=== PATIENT | female | born 1935 | race Caucasian/White ===

== ENCOUNTER 2016-11-08 09:54 | Inpatient (IN) | payer MEDICARE, BC ==
[2016-11-08] MEDS ORDERED: Albuterol 0.083% 2.5 MG/3 ML Neb Soln ONE (10:29)
--- NOTE | 2016-11-08 10:58 | EDM.PDOC ---
ED HPI GENERAL MEDICAL PROBLEM - General Chief Complaint: Respiratory Problem Stated Complaint: RESPIRATORY ISSUES Time Seen by Provider: 11/08/16 10:15 Source of Information: Reports: Patient, Family History Limitations: Reports: No Limitations - History of Present Illness INITIAL COMMENTS - FREE TEXT/NARRATIVE: 81 YO WF presents to ER complaining of right sided pleuritic pain and increased shortness of breath which began this am. Pt with history of COPD and is O2 dependent on 2L. Pt denies fever/chills, but states she is feeling nauseated. Pt denies any lower extremity swelling or recent weight gain. Onset: Today Onset Date: 11/08/16 Onset Time: 07:00 Location: Reports: Chest Quality: Reports: Stabbing Severity: Mild Improves with: Reports: None Worsens with: Reports: None Associated Symptoms: Reports: Chest Pain, Cough, Loss of Appetite, Malaise, Nausea/Vomiting, Shortness of Breath, Weakness. Denies: Confusion, Fever/Chills , Rash, Syncope Left Lower Back Pain Score (Numeric/FACES): 2 - Related Data Allergies Allergy/AdvReac Type Severity Reaction Status Date / Time penicillamine Allergy Severe Anaphylactic Verified 11/08/16 10:45 Shock Penicillins Allergy Severe Anaphylactic Verified 11/08/16 10:45 Shock Cephalosporins Allergy Unknown Cannot Verified 11/08/16 10:45 Remember aspirin Allergy Other Verified 11/08/16 10:45 Carbapenems Allergy Cannot Verified 11/08/16 10:45 Remember divalproex sodium Allergy Delusions Verified 11/08/16 10:45 [From Depakote] contrast Allergy Chest Pain Uncoded 07/17/16 13:19 Home Meds: Home Meds Cholecalciferol (Vitamin D3) [Vitamin D3] 1,000 unit PO DAILY@12 09/27/13 [ History] Levothyroxine [Synthroid] 88 mcg PO BEDTIME 09/27/13 [History] Lutein/Minerals/Vit A,C & E [I-Silvina] 1 cap PO WITHDINNER 06/24/14 [History] Pravastatin [Pravachol] 40 mg PO BEDTIME 06/24/14 [History] Polyethylene Glycol 3350 [MiraLAX] 17 gm PO Q2D PRN 08/24/14 [History] Albuterol Sulfate [Albuterol Sulfate HFA] 2 puff INH Q4HR PRN 08/28/14 [History] Omeprazole [Prilosec] 40 mg PO WITHLUNCH 01/20/15 [History] glipiZIDE [Glipizide Xl] 2.5 mg PO BRK 01/20/15 [History] Ferrous Sulfate 325 mg PO DAILY@1800 04/12/15 [History] Venlafaxine [Effexor XR] 150 mg PO DAILY 04/12/15 [History] Docusate Sodium [Colace] 100 mg PO BID 06/27/15 [History] Albuterol [Proventil Neb Soln] 1 puff NEB QID 02/25/16 [History] Potassium Chloride [K-Tab ER] 10 meq PO DAILY 02/25/16 [History] Warfarin [Coumadin] 2.5 mg PO MOFR@18 02/25/16 [History] Warfarin [Coumadin] 5 mg PO SUTUWETHSA@18 05/11/16 [History] Bumetanide [Bumex] 0.5 mg PO BID 06/19/16 [History] Dapsone 100 mg PO DAILY 06/19/16 [History] Lisinopril [Prinivil] 5 mg PO DAILY 06/19/16 [History] Sotalol [Betapace] 80 mg PO BID 06/19/16 [History] Acetaminophen/HYDROcodone [[place] 325-5 MG] 1 tab PO Q6H PRN 07/15/16 [History] predniSONE [Prednisone] 5 mg PO DAILY@199907/17/16 [History] predniSONE [Prednisone] 10 mg PO WITHBREAKFAST 07/17/16 [History] Calcium Phosphate Trib/Vit D3 [Citracal + D3 Gummies] 2 tab PO QAM 11/08/16 [ History] Diclofenac Sodium [Voltaren 1% Gel] 1 applic TOP BID PRN 11/08/16 [History] Metoprolol Tartrate 25 mg PO BID 11/08/16 [History] Ondansetron [Zofran ODT] 4 mg PO Q4H PRN 11/08/16 [History] Past Medical History HEENT History: Reports: Hard of Hearing, Impaired Vision Cardiovascular History: Reports: Afib, Heart Failure, Heart Valve Replacement, High Cholesterol, Hypertension, [place], SOB on Exertion, Other (See Below) Other Cardiovascular History: mitral stenosis,aortic stenosis,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,vasculitis Respiratory History: Reports: COPD, SOB Other Respiratory History: pleural effusions Gastrointestinal History: Reports: Bowel Obstruction, Diverticulosis, GERD Genitourinary History: Reports: Chronic Renal Insuffiency, Renal Disease, Other (See Below) Other Genitourinary History: acquired cyst of kidney 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 Other OB/BYN History: 6 daughters, live term births Musculoskeletal History: Reports: Arthritis, Back Pain, Chronic, Osteoporosis, Other (See Below) Other Musculoskeletal History: compression fracture of thoracolumbar vertebra Neurological History: Reports: Migraines, Other (See Below) Other Neuro History: new onset confusion starting 06/18/2016 Psychiatric History: Reports: Depression Endocrine/Metabolic History: Reports: Diabetes, Type II, Hypothyroidism, Osteoporosis Hematologic History: Reports: Anemia, Blood Transfusion(s) Immunologic History: Reports: Other (See Below) Other Immunologic History: chronic steroid use Oncologic (Cancer) History: Reports: Breast, Colon Dermatologic History: Reports: Venous Stasis Dermatitis - Infectious Disease History Infectious Disease History: Reports: Chicken Pox, Measles, Rheumatic Fever - Past Surgical History HEENT Surgical History: Reports: Cataract Surgery Cardiovascular Surgical History: Reports: Valve Replacement Neurological Surgical History: Reports: Other (See Below) Musculoskeletal Surgical History: Reports: Other (See Below) Oncologic Surgical History: Reports: Mastectomy, Other (See Below) Social & Family History - Family History Family Medical History: Noncontributory HEENT: Reports: None Cardiac: Reports: None Respiratory: Reports: None GI: Reports: None : Reports: None OBGYN: Reports: None Musculoskeletal: Reports: None Neurological: Reports: None Psychiatric: Reports: None Endocrine/Metabolic: Reports: None Hematologic: Reports: None Immunologic: Reports: None Dermatologic: Reports: None Oncologic: Reports: Other (See Below) Other Oncologic Family History: parents had ca - Tobacco Use Smoking Status *Q: Former Smoker Years of Tobacco use: 40 Packs/Tins Daily: 0.5 Used Tobacco, but Quit: Yes Month Tobacco Last Used: October Second Hand Smoke Exposure: No - Caffeine Use Caffeine Use: Reports: Coffee, Soda - Alcohol Use Days Per Week of Alcohol Use: 0 - Recreational Drug Use Recreational Drug Use: No Recreational Drug Last Use: Coffee 3 cups of coffee per day, very occasional soda - Living Situation & Occupation Living situation: Reports: Occupation: Retired ED ROS GENERAL - Review of Systems Review Of Systems: See Below Constitutional: Reports: No Symptoms HEENT: Reports: No Symptoms Respiratory: Reports: Shortness of Breath, Wheezing, Cough Cardiovascular: Reports: Chest Pain Endocrine: Reports: No Symptoms GI/Abdominal: Reports: No Symptoms : Reports: No Symptoms Musculoskeletal: Reports: No Symptoms Skin: Reports: No Symptoms Neurological: Reports: No Symptoms Psychiatric: Reports: No Symptoms Hematologic/Lymphatic: Reports: No Symptoms Immunologic: Reports: No Symptoms ED EXAM, GENERAL - Physical Exam Exam: See Below Exam Limited By: No Limitations General Appearance: Alert, WD/WN, No Apparent Distress Nose: Normal Inspection, Normal Mucosa, No Blood Throat/Mouth: Normal Inspection, Normal Lips, Normal Teeth, Normal Gums, Normal Oropharynx, Normal Voice, No Airway Compromise Head: Atraumatic Neck: Normal Inspection, Supple, Non-Tender, Full Range of Motion Respiratory/Chest: No Respiratory Distress, No Accessory Muscle Use, Chest Non- Tender, Decreased Breath Sounds (on right side), Crackles, Wheezing. No: Respiratory Distress Cardiovascular: Normal Peripheral Pulses, Regular Rate, Rhythm, No Edema, No Gallop, No JVD, No Murmur, No Rub GI/Abdominal: Normal Bowel Sounds, Soft, Non-Tender, No Organomegaly, No Distention, No Abnormal Bruit, No Mass Back Exam: Normal Inspection, Full Range of Motion, NT Extremities: Normal Inspection, Normal Range of Motion, Non-Tender, Normal Capillary Refill, No Pedal Edema Neurological: Alert, Oriented, CN II-XII Intact, Normal Cognition, Normal Gait, Normal Reflexes, No Motor/Sensory Deficits Psychiatric: Normal Affect, Normal Mood Skin Exam: Warm, Dry, Intact, Normal Color, No Rash Lymphatic: No Adenopathy EKG INTERPRETATION EKG Date: 11/08/16 Time: 10:45 Rhythm: NSR Rate (beats/min): 69 [place]: LAD-left axis deviation P-wave: present QRS: normal ST-T: normal QT: normal Comparison: NA - no prior EKG Course - Vital Signs Last Recorded V/S: Last Vital Signs Temp 36.7 C 11/08/16 10:47 Pulse 62 11/08/16 11:24 Resp 22 H 11/08/16 11:24 BP 111/34 L 11/08/16 11:24 Pulse Ox 87 L 11/08/16 11:24 - Orders/Labs/Meds Orders: Active Orders 24 hr Category Date Time Status EKG Documentation Completion [RC] ASDIRECTED Care 11/08/16 10:36 Active Chest 2V [CR] Stat Exams 11/08/16 10:31 Ordered EKG 12 Lead [EK] Routine Ther 11/08/16 10:36 Ordered Medication Orders Albuterol/Ipratropium (Duoneb 3.0-0.5 Mg/3 Ml) 3 ml NEB Q4H PRN PRN Reason: Shortness Of Breath/wheezing Ondansetron HCl (Zofran) 4 mg IV Q4H PRN PRN Reason: Nausea/Vomiting Sodium Chloride (Syrex Flush) 5 ml FLUSH Q8HR PRN PRN Reason: Keep Vein Open Labs: Laboratory Tests 11/08/16 11/08/16 11/08/16 Range/Units 10:50 10:50 10:50 WBC 13.6 H (5.0-10.0) 10^3/uL RBC 3.67 L (3.80-5.50) 10^6/uL Hgb 12.8 (12.0-16.0) g/dL Hct 38.3 (37.0-47.0) % MCV 104.3 H (82.0-92.0) fL MCH 34.8 H (27.0-31.0) pg MCHC 33.4 (32.0-36.0) g/dL RDW 13.6 (11.5-14.5) % Plt Count 117 L (150-300) 10^3/uL MPV 10.3 (7.4-10.4) fL Neut % (Auto) 91.2 H (50.0-70.0) % Lymph % (Auto) 7.5 L (20.0-40.0) % [place] % (Auto) 1.0 L (2.0-8.0) % Eos % (Auto) 0.1 L (1.0-3.0) % Baso % (Auto) 0.2 (0.0-1.0) % Neut # (Auto) 12.5 H (2.5-7.0) 10^3/uL Lymph # (Auto) 1.0 (1.0-4.0) 10^3/uL [place] # (Auto) 0.1 (0.1-0.8) 10^3/uL Eos # (Auto) 0.0 L (0.1-0.3) 10^3/uL Baso # (Auto) 0.0 (0.0-0.1) 10^3/uL PT 26.5 H (8.9-11.4) SEC INR 2.5 H (0.9-1.1) Sodium 144 (136-145) mmol/L Potassium 3.7 (3.3-5.3) mmol/L Chloride 107 (98-115) mmol/L Carbon Dioxide 31.1 (21.0-32.0) mmol/L BUN 28 H (6-25) mg/dL Creatinine 0.98 (0.51-1.17) mg/dL Est Cr Clr Drug Dosing 33.43 mL/min Estimated GFR (MDRD) 55 mL/min Glucose 127 H (70-110) mg/dL Calcium 9.5 (8.7-10.3) mg/dL Total Bilirubin 0.7 (0.2-1.0) mg/dL AST 17 (15-37) U/L ALT 25 (12-78) U/L Alkaline Phosphatase 52 (46-116) IU/L Creatine Kinase 40 (26-276) U/L CK-MB (CK-2) 1.60 (0.00-4.30) ng/mL Troponin I 0.06 (0.00-0.070) ng/mL B-Natriuretic Peptide 381 H (0-100) pg/mL Total Protein 5.9 L (6.4-8.2) g/dL Albumin 3.40 (3.00-4.80) g/dL Meds: Medications Generic Name Dose Route Start Last Admin Trade Name Freq PRN Reason Stop Dose Admin Albuterol/Ipratropium 3 ml 11/08/16 11:32 Duoneb 3.0-0.5 Mg/3 Ml NEB Q4H PRN Shortness Of Breath/wheezing Ondansetron HCl 4 mg 11/08/16 11:32 Zofran IV Q4H PRN Nausea/Vomiting Sodium Chloride 5 ml 11/08/16 11:32 Syrex Flush FLUSH Q8HR PRN Keep Vein Open Discontinued Medications Generic Name Dose Route Start Last Admin Trade Name Freq PRN Reason Stop Dose Admin Albuterol Confirm 11/08/16 10:29 Proventil Neb Soln Administered 11/08/16 10:30 Dose 2.5 mg .ROUTE .[facility] - Radiology Interpretation Free Text/Narrative:: CXR- RLL pneumonia Departure - Departure Time of Disposition: 11:40 Disposition: Admitted As Inpatient 68 Condition: fair Clinical Impression: Pneumonia Qualifiers: Pneumonia type: due to unspecified organism Laterality: right Lung location: lower lobe of lung Qualified Code(s): J18.1 - Lobar pneumonia, unspecified organism - Discharge Information - My Orders Last 24 Hours: My Active Orders 11/08/16 10:31 Chest 2V [CR] Stat 11/08/16 10:36 EKG Documentation Completion [RC] ASDIRECTED EKG 12 Lead [EK] Routine - Assessment/Plan Last 24 Hours: My Active Orders 11/08/16 10:31 Chest 2V [CR] Stat 11/08/16 10:36 EKG Documentation Completion [RC] ASDIRECTED EKG 12 Lead [EK] Routine Assessment:: 1. right lower lobe pneumonia Plan: 1. admit to Dr Arabella Hinojosa service for management of pneumoniq 2. vancomycin/levaquin for antibiotic coverage 3. supportive care 4. duoneb treatments Q4 and PRN
[2016-11-08] MEDS ORDERED: Ondansetron 4 MG/2 ML SDV IV PRN (11:32)
--- NOTE | 2016-11-08 12:23 | PCM.HP ---
H&P History of Present Illness - General Date of Service: 11/08/16 Admit Problem/Dx: Admission Diagnosis/Problem Admission Diagnosis/Problem Pneumonia History of present illness: Patient is a 81-year-old white female with a very complex medical history, presently resides as a resident of a local jail, presents today with the chief complaint of right posterior lower chest/back pleuritic chest pain and increased shortness of breath. Symptoms just started today-hurts to take a deep breath, denies any fever or chills. No increase coughing-history of COPD- somewhat of a chronic cough history. Patient reports she is somewhat nauseated and gagged a couple times but no significant productive vomiting. Denied any abdominal pain, constipation, diarrhea. Denied any urinary symptoms. Increased generalized weakness. Patient reports her chronic back pain and spasms are much better after she saw a chronic pain specialist in [place] and had special injections done. Patient evaluated in the emergency room-noted to have leukocytosis and right lower lobe pneumonia Source of Information: Patient, Family, Other (Emergency room provider) History Limitations: Reports: No Limitations - History of Present Illness Initial Comments - Free Text/Narative: See above Onset of Symptoms: Reports: Today, Sudden Quality: Reports: Sharp, Stabbing Severity: Moderate Worsens with: Reports: Breathing Associated Symptoms: Reports: Chest Pain, Malaise, Nausea/Vomiting, Shortness of Breath, Weakness. Denies: Cough, Fever/Chills, Headaches, Loss of Appetite Left Lower Back Pain Score (Numeric/FACES): 2 - Related Data Allergies/Adverse Reactions: Allergies Allergy/AdvReac Type Severity Reaction Status Date / Time penicillamine Allergy Severe Anaphylactic Verified 11/08/16 10:45 Shock Penicillins Allergy Severe Anaphylactic Verified 11/08/16 10:45 Shock Cephalosporins Allergy Unknown Cannot Verified 11/08/16 10:45 Remember aspirin Allergy Other Verified 11/08/16 10:45 Carbapenems Allergy Cannot Verified 11/08/16 10:45 Remember divalproex sodium Allergy Delusions Verified 11/08/16 10:45 [From Depakote] contrast Allergy Chest Pain Uncoded 07/17/16 13:19 Home Medications: Home Meds Cholecalciferol (Vitamin D3) [Vitamin D3] 1,000 unit PO DAILY@12 09/27/13 [ History] Levothyroxine [Synthroid] 88 mcg PO BEDTIME 09/27/13 [History] Lutein/Minerals/Vit A,C & E [I-Silvina] 1 cap PO WITHDINNER 06/24/14 [History] Pravastatin [Pravachol] 40 mg PO BEDTIME 06/24/14 [History] Polyethylene Glycol 3350 [MiraLAX] 17 gm PO Q2D PRN 08/24/14 [History] Albuterol Sulfate [Albuterol Sulfate HFA] 2 puff INH Q4HR PRN 08/28/14 [History] Omeprazole [Prilosec] 40 mg PO WITHLUNCH 01/20/15 [History] glipiZIDE [Glipizide Xl] 2.5 mg PO BRK 01/20/15 [History] Ferrous Sulfate 325 mg PO DAILY@1800 04/12/15 [History] Venlafaxine [Effexor XR] 150 mg PO DAILY 04/12/15 [History] Docusate Sodium [Colace] 100 mg PO BID 06/27/15 [History] Albuterol [Proventil Neb Soln] 1 puff NEB QID 02/25/16 [History] Potassium Chloride [K-Tab ER] 10 meq PO DAILY 02/25/16 [History] Warfarin [Coumadin] 2.5 mg PO MOFR@18 02/25/16 [History] Warfarin [Coumadin] 5 mg PO SUTUWETHSA@18 05/11/16 [History] Bumetanide [Bumex] 0.5 mg PO BID 06/19/16 [History] Dapsone 100 mg PO DAILY 06/19/16 [History] Lisinopril [Prinivil] 5 mg PO DAILY 06/19/16 [History] Sotalol [Betapace] 80 mg PO BID 06/19/16 [History] Acetaminophen/HYDROcodone [Pilger 325-5 MG] 1 tab PO Q6H PRN 07/15/16 [History] predniSONE [Prednisone] 5 mg PO DAILY@199907/17/16 [History] predniSONE [Prednisone] 10 mg PO WITHBREAKFAST 07/17/16 [History] Calcium Phosphate Trib/Vit D3 [Citracal + D3 Gummies] 2 tab PO QAM 11/08/16 [ History] Diclofenac Sodium [Voltaren 1% Gel] 1 applic TOP BID PRN 11/08/16 [History] Metoprolol Tartrate 25 mg PO BID 11/08/16 [History] Ondansetron [Zofran ODT] 4 mg PO Q4H PRN 11/08/16 [History] Past Medical History HEENT History: Reports: Hard of Hearing, Impaired Vision Cardiovascular History: Reports: Afib, Heart Failure, Heart Valve Replacement, High Cholesterol, Hypertension, [place], SOB on Exertion, Other (See Below) Other Cardiovascular History: mitral stenosis,aortic stenosis,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,vasculitis Respiratory History: Reports: COPD, SOB Other Respiratory History: pleural effusions Gastrointestinal History: Reports: Bowel Obstruction, Diverticulosis, GERD Genitourinary History: Reports: Chronic Renal Insuffiency, Renal Disease, Other (See Below) Other Genitourinary History: acquired cyst of kidney 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 Other OB/BYN History: 6 daughters, live term births Musculoskeletal History: Reports: Arthritis, Back Pain, Chronic, Osteoporosis, Other (See Below) Other Musculoskeletal History: compression fracture of thoracolumbar vertebra Neurological History: Reports: Migraines, Other (See Below) Other Neuro History: new onset confusion starting 06/18/2016 Psychiatric History: Reports: Depression Endocrine/Metabolic History: Reports: Diabetes, Type II, Hypothyroidism, Osteoporosis Hematologic History: Reports: Anemia, Blood Transfusion(s) Immunologic History: Reports: Other (See Below) Other Immunologic History: chronic steroid use Oncologic (Cancer) History: Reports: Breast, Colon Dermatologic History: Reports: Venous Stasis Dermatitis - Infectious Disease History Infectious Disease History: Reports: Chicken Pox, Measles, Rheumatic Fever - Past Surgical History HEENT Surgical History: Reports: Cataract Surgery Cardiovascular Surgical History: Reports: Valve Replacement Neurological Surgical History: Reports: Other (See Below) Musculoskeletal Surgical History: Reports: Other (See Below) Oncologic Surgical History: Reports: Mastectomy, Other (See Below) Social & Family History - Family History Family Medical History: Noncontributory HEENT: Reports: None Cardiac: Reports: None Respiratory: Reports: None GI: Reports: None : Reports: None OBGYN: Reports: None Musculoskeletal: Reports: None Neurological: Reports: None Psychiatric: Reports: None Endocrine/Metabolic: Reports: None Hematologic: Reports: None Immunologic: Reports: None Dermatologic: Reports: None Oncologic: Reports: Other (See Below) Other Oncologic Family History: parents had ca - Tobacco Use Smoking Status *Q: Former Smoker Years of Tobacco use: 40 Packs/Tins Daily: 0.5 Used Tobacco, but Quit: Yes Month Tobacco Last Used: October Second Hand Smoke Exposure: No - Caffeine Use Caffeine Use: Reports: Coffee, Soda - Alcohol Use Days Per Week of Alcohol Use: 0 - Recreational Drug Use Recreational Drug Use: No Recreational Drug Last Use: Coffee 3 cups of coffee per day, very occasional soda - Living Situation & Occupation Living situation: Reports: Occupation: Retired H&P Review of Systems - Review of Systems: Review Of Systems: See Below General: Reports: Malaise, Weakness, Fatigue. Denies: Fever, Chills, Diaphoresis, Decreased Appetite, Weight Loss, Weight Gain HEENT: Reports: No Symptoms Pulmonary: Reports: Shortness of Breath, Wheezing (Somewhat increased), Pleuritic Chest Pain, Cough (No significant increase) Cardiovascular: Reports: Chest Pain. Denies: Palpitations, Edema, Lightheadedness Gastrointestinal: Reports: No Symptoms Genitourinary: Reports: No Symptoms Musculoskeletal: Reports: Back Pain (Right posterior back/chest-lower) Skin: Reports: Other ( new skin tear today when getting into the vehicle to come to the emergency room) Psychiatric: Reports: No Symptoms Neurological: Reports: No Symptoms Exam - Exam Exam: See Below - Vital Signs Vital Signs: Last Vital Signs Temp 98.0 F 11/08/16 10:47 Pulse 62 11/08/16 11:24 Resp 22 H 11/08/16 11:24 BP 111/34 L 11/08/16 11:24 Pulse Ox 87 L 11/08/16 11:24 Weight: 125 lb - Exam Quality Assessment: Supplemental Oxygen General: Alert, Oriented, Cooperative, Mild Distress, Lethargic, Other (Lying in bed-appears ill-questionably septic/toxic-very weak) HEENT: Conjunctiva Clear, EACs Clear, EOMI, Hearing Intact, Mucosa Moist & [place] , Nares Patent, Posterior Pharynx Clear, Pupils Equal, Pupils Reactive, TMs Clear, Glasses, PERRLA Neck: Supple, Trachea Midline. No: JVD, Thyromegaly Lungs: Decreased Breath Sounds, Crackles, Rales, Wheezing Cardiovascular: Irregular Rhythm, Systolic Murmur Abdomen: Normal Bowel Sounds, Soft, Other (Colostomy). No: Organomegaly, Peritoneal Signs, Distention, Guarding, Rigidity, Rebound, Tenderness Extremities: Other (Chronic scattered ecchymotic areas, new right lower extremity skin [id number]-[id number] in place appears clean and dry-no bleeding). No: Calf Tenderness, Edema, Increased Warmth Skin: Warm, Dry, Ecchymosis (Scattered) Neurological: Cranial Nerves Intact (Except slightly hard of hearing) Neuro Extensive - Motor, Sensory, Reflexes: Other (No new acute focal motor or sensory deficits except increased generalized weakness/fatigue) Psychiatric: Alert, Normal Affect, Normal Mood - Patient Data Result Diagrams: 11/08/16 10:50 11/08/16 10:50 *Q Meaningful Use (ADM) - VTE *Q VTE Criteria *Q: - Stroke *Q Stroke Criteria *Q: - AMI *Q AMI Criteria *Q: Problem List Initiated/Reviewed/Updated: Yes Orders Last 24hrs: Active Orders 24 hr Category Date Time Status Patient Status [ADT] Routine ADT 11/08/16 11:32 Ordered Bedrest Bathroom Privileges [RC] ASDIRECTED Care 11/08/16 11:32 Active Cardiac Monitoring [RC] . DIRECTED Care 11/08/16 11:31 Active Cardiac Monitoring [RC] CONTINUOUS Care 11/08/16 11:34 Active Oxygen Therapy [RC] PRN Care 11/08/16 11:32 Active Peripheral IV Care [RC] . DIRECTED Care 11/08/16 11:36 Active Pulse Oximetry [RC] CONTINUOUS Care 11/08/16 11:34 Active RT Aerosol Therapy [RC] ASDIRECTED Care 11/08/16 11:36 Active VTE/DVT Education [RC] PER UNIT ROUTINE Care 11/08/16 11:32 Active Vital Signs [RC] Q4H Care 11/08/16 11:32 Active 2 Gram Sodium Diet [DIET] Diet 11/08/16 Lunch Active CULTURE BLOOD [BC] Stat Lab 11/08/16 11:36 Ordered CULTURE BLOOD [BC] Stat Lab 11/08/16 12:00 Received CULTURE SPUTUM + SMEAR [RM] Stat Lab 11/08/16 11:32 Uncollected CULTURE URINE [RM] Stat Lab 11/08/16 11:32 Uncollected UA W/MICROSCOPIC [URIN] Stat Lab 11/08/16 11:32 Uncollected Albuterol/Ipratropium [DuoNeb 3.0-0.5 MG/3 ML] Med 11/08/16 11:32 Active 3 ml NEB Q4H PRN Levofloxacin/Dextrose 5%-Water [Levaquin in D5W 500 MG/ Med 11/08/16 11:45 Active 100 ML] 500 mg Premix Bag 1 bag IV Q24H Ondansetron [Zofran] Med 11/08/16 11:32 Active 4 mg IV Q4H PRN Sodium Chloride 0.9% [Syrex Flush] Med 11/08/16 11:32 Active 5 ml FLUSH Q8HR PRN Vancomycin 1 gm Med 11/08/16 11:45 Active Sodium Chloride 0.9% [Normal Saline] 250 ml IV Q24H Blood Culture x2 Reflex Set [OM.PC] Stat Oth 11/08/16 11:32 Ordered Peripheral IV Insertion Adult [OM.PC] Routine Oth 11/08/16 11:32 Ordered Resuscitation Status Routine Resus Stat 11/08/16 11:32 Ordered Medication Orders Albuterol/Ipratropium (Duoneb 3.0-0.5 Mg/3 Ml) 3 ml NEB Q4H PRN PRN Reason: Shortness Of Breath/wheezing Levofloxacin/Dextrose 500 mg/ (Premix) 100 mls @ 100 mls/hr IV Q24H MARY ALICE Vancomycin HCl 1 gm/ Sodium (Chloride) 250 mls @ 167 mls/hr IV Q24H MARY ALICE Ondansetron HCl (Zofran) 4 mg IV Q4H PRN PRN Reason: Nausea/Vomiting Sodium Chloride (Syrex Flush) 5 ml FLUSH Q8HR PRN PRN Reason: Keep Vein Open Assessment/Plan Comment:: Assessment: Acute pneumonia-right lower lobe Acute COPD exacerbation-early Rule out sepsis Acute chest pain/back pain secondary to above Marked increased generalized weakness-acute on chronic Dyspnea/hypoxia secondary to above Chronic hypoxia-component of acute on chronic Complex medical case Leukocytosis secondary to above Adult-onset diabetes mellitus type 2 Right leg skin [id number] Chronic anticoagulation therapy Chronic renal insufficiency Chronic back pain-muscle spasms-this part is doing somewhat better Hypertension Hyperlipidemia Chronic corticosteroid therapy GERD Cholesterol lowering therapy Hypothyroidism CHF history Plan: Admit to inpatient for further evaluation and treatment Monitor vital signs, intake and output, general status very closely Patient is DO NOT RESUSCITATE Gentle IV fluids-IV normal saline to run at 75 cc an hour Cover with IV Levaquin and IV vancomycin after obtaining full cultures Full cultures-blood, sputum, urine Check blood sugars twice a day Duo nebs every 4 hours Solu-Medrol 40 mg IV every 12 hours Talked with patient and her family-they agree with this evaluation treatment plan See orders for further details
[2016-11-08] MEDS ORDERED: Albuterol 0.083% 2.5 MG/3 ML Neb Soln NEB ONE (12:28)
[2016-11-08] MEDS ORDERED: Polyethylene Glycol 3350 Powder 17 GM Packet PO PRN (12:31)
[2016-11-08] MEDS ORDERED: Ondansetron 4 MG Tab.DIS PO PRN (12:31)
[2016-11-08] MEDS ORDERED: Albuterol HFA 18 Gm Inhaler INH PRN (12:31)
[2016-11-08] MEDS ORDERED: Acetaminophen/HYDROcodone 325-5 MG Tab PO PRN (12:31)
[2016-11-08] MEDS ORDERED: Diclofenac Sodium 1% Gel 100 GM Tube TOP PRN (12:31)
[2016-11-08] MEDS: glipiZIDE 2.5 MG Tab.ER PO SCH (13:49)
[2016-11-08] MEDS: Omeprazole 20 MG Cap.CR PO SCH (13:49)
[2016-11-08] MEDS: Calcium Citrate/Vitamin D3 315 MG-250 Unit Tab PO SCH (13:49)
[2016-11-08] MEDS: methylPREDNISolone Sodium Succinate 125 MG/2 ML SDV IVPUSH SCH ×2 (13:52→23:44)
[2016-11-08] MEDS: Levofloxacin/Dextrose 5%-Water 500 MG in Premix Bag 1 BAG IV SCH (14:03)
[2016-11-08] MEDS: Albuterol/Ipratropium 3.0-0.5 MG/3 ML Neb Soln NEB PRN ×2 (16:18→21:55)
[2016-11-08] MEDS ORDERED: Furosemide 40 MG/4 ML VIAL IVPUSH ONE (17:06)
[2016-11-08] MEDS: Acetaminophen/HYDROcodone 325-5 MG Tab PO PRN ×3 (17:20→23:44)
[2016-11-08] MEDS: Bumetanide 1 MG Tab PO SCH (17:21)
[2016-11-08] MEDS: Ferrous Sulfate 325 MG Tab PO SCH (17:22)
[2016-11-08] MEDS: Warfarin 5 MG Tab PO SCH (17:22)
[2016-11-08] MEDS: Lutein/Minerals/Vit A,C & E Tab PO SCH (17:41)
[2016-11-08] MEDS: Metoprolol Tartrate 25 MG Tab PO SCH (20:29)
[2016-11-08] MEDS: Sotalol 80 MG Tab PO SCH (20:29)
[2016-11-08] MEDS: Docusate Sodium 100 MG Cap PO SCH (20:29)
[2016-11-08] MEDS: Pravastatin 20 MG Tab PO SCH (20:33)
[2016-11-08] MEDS ORDERED: Levothyroxine 88 MCG Tab PO SCH (21:00)
[2016-11-08 22:32] LABS: O2 DELIVERY DEVICE NASAL CANNULA
[2016-11-08 22:35] LABS: PCO2 ARTERIAL 41 mmHG (35-45)
[2016-11-08 22:36] LABS: BASE EXCESS ARTERIAL 5 mmol/L (-2-3); BICARBONATE,ARTERIAL 28.8 mmol/L (22-26); O2 FLOW RATE 3 L/min; O2 SATURATION ARTERIAL 89 % (95-98); PO2 ARTERIAL 54 mmHG (80-105)
[2016-11-08] MEDS: Sodium Chloride 0.9% 5 ML Syringe FLUSH PRN (23:47)
[2016-11-09] MEDS: Acetaminophen/HYDROcodone 325-5 MG Tab PO PRN ×2 (03:00→06:22)
[2016-11-09] MEDS: Levothyroxine 88 MCG Tab PO SCH (06:22)
[2016-11-09] MEDS: Albuterol/Ipratropium 3.0-0.5 MG/3 ML Neb Soln NEB PRN ×2 (06:24→18:59)
[2016-11-09] MEDS: glipiZIDE 2.5 MG Tab.ER PO SCH (08:39)
[2016-11-09] MEDS: Bumetanide 1 MG Tab PO SCH ×2 (08:39→18:15)
[2016-11-09] MEDS: Venlafaxine 150 MG Cap.ER PO SCH (08:40)
[2016-11-09] MEDS: Docusate Sodium 100 MG Cap PO SCH ×2 (08:40→21:14)
[2016-11-09] MEDS: Calcium Citrate/Vitamin D3 315 MG-250 Unit Tab PO SCH ×2 (08:41→08:48)
[2016-11-09] MEDS: Potassium Chloride 10 MEQ Tab.ER PO SCH (08:42)
[2016-11-09] MEDS: Lisinopril 5 MG Tab PO SCH (08:42)
[2016-11-09] MEDS: Metoprolol Tartrate 25 MG Tab PO SCH ×2 (08:42→21:14)
[2016-11-09] MEDS: Sotalol 80 MG Tab PO SCH ×2 (08:43→21:14)
--- NOTE | 2016-11-09 09:55 | PCM.PN ---
- General Info Date of Service: 11/09/16 Admission Dx/Problem (Free Text): Admission Diagnosis/Problem Admission Diagnosis/Problem Pneumonia History of present illness: Patient is a 81-year-old white female with a very complex medical history, presently resides as a resident of a local senior care, presents today with the chief complaint of right posterior lower chest/back pleuritic chest pain and increased shortness of breath. Symptoms just started today-hurts to take a deep breath, denies any fever or chills. No increase coughing-history of COPD- somewhat of a chronic cough history. Patient reports she is somewhat nauseated and gagged a couple times but no significant productive vomiting. Denied any abdominal pain, constipation, diarrhea. Denied any urinary symptoms. Increased generalized weakness. Patient reports her chronic back pain and spasms are much better after she saw a chronic pain specialist in [place] and had special injections done. Patient evaluated in the emergency room-noted to have leukocytosis and right lower lobe pneumonia Patient admitted for further evaluation and treatment-right lower lobe pneumonia , leukocytosis-full cultures obtained-placed on IV Levaquin and IV vancomycin- patient has multiple significant antibiotic allergies 11/08/16-shortness of breath, hypoxia-low O2 sats-ABG showed significant low oxygen level-patient is a DO NOT RESUSCITATE/no intubation--oxygen was increased to 5 L per nasal cannula per minute-seemed to do well with this and clinically not overly short of breath thereafter Patient reports today: Feeling somewhat better-good right now Denies any pain at present Shortness of breath-slight but not marked Denied any nausea, vomiting, abdominal pain, chest pain Reports she still has some posterior lower chest/back pain but more on the left side today than the right side-no pain on the right posterior back/chest today Appetite is fair-eating and drinking Pain pill helps every 3 hours Nurses report today: Quite hypoxic/O2 sats low last night-oxygen level on ABGs was low-increased to 5 L O2 sats now running 89-92%On 5 L Patient looks better in general Functional Status: Reports: pain controlled, tolerating diet, ambulating (with assistance and a walker), urinating - Review of Systems General: Reports: Weakness, Fatigue, Appetite (pretty good). Denies: Fever, Chills HEENT: Reports: no symptoms Pulmonary: Reports: shortness of breath (slight), pleuritic chest pain ( somewhat on the left side). Denies: cough, sputum, wheezing Cardiovascular: Reports: Chest Pain (slightly on the left side). Denies: Palpitations, Edema Gastrointestinal: Reports: No symptoms Genitourinary: Reports: no symptoms Musculoskeletal: Reports: back pain (left) Skin: Reports: other (chronic ecchymoses, right leg skin tear doing well) Neurological: Reports: No Symptoms, Weakness Psychiatric: Reports: no symptoms - Patient Data Vitals - most recent: Last Vital Signs Temp 98.0 F 11/09/16 06:40 Pulse 68 11/09/16 08:43 Resp 16 11/09/16 06:40 BP 136/68 11/09/16 08:43 Pulse Ox 89 L 11/09/16 06:40 Weight - most recent: 125 lb I&O - last 24 hours: Intake & Output 11/08/16 11/09/16 11/09/16 22:59 06:59 14:59 Intake Total 150 150 Output Total 430 Balance -280 150 Lab Results last 24 hrs: Laboratory Results - last 24 hr 11/08/16 11/08/16 11/08/16 Range/Units 15:10 17:19 22:24 WBC (5.0-10.0) 10^3/uL RBC (3.80-5.50) 10^6/uL Hgb (12.0-16.0) g/dL Hct (37.0-47.0) % MCV (82.0-92.0) fL MCH (27.0-31.0) pg MCHC (32.0-36.0) g/dL RDW (11.5-14.5) % Plt Count (150-300) 10^3/uL MPV (7.4-10.4) fL Neut % (Auto) (50.0-70.0) % Lymph % (Auto) (20.0-40.0) % [place] % (Auto) (2.0-8.0) % Eos % (Auto) (1.0-3.0) % Baso % (Auto) (0.0-1.0) % Neut # (Auto) (2.5-7.0) 10^3/uL Lymph # (Auto) (1.0-4.0) 10^3/uL [place] # (Auto) (0.1-0.8) 10^3/uL Eos # (Auto) (0.1-0.3) 10^3/uL Baso # (Auto) (0.0-0.1) 10^3/uL ABG pH 7.45 (7.35-7.45) ABG pCO2 41 (35-45) mmHG ABG pO2 54 L* (80-105) mmHG ABG HCO3 28.8 H (22-26) mmol/L ABG Total CO2 30 H (23-27) mmol/L ABG O2 Saturation 89 L (95-98) % ABG Base Excess 5 H (-2-3) mmol/L O2 Delivery Device Nasal cannula Oxygen Flow Rate 3 L/min Sodium (136-145) mmol/L Potassium (3.3-5.3) mmol/L Chloride (98-115) mmol/L Carbon Dioxide (21.0-32.0) mmol/L BUN (6-25) mg/dL Creatinine (0.51-1.17) mg/dL Est Cr Clr Drug Dosing mL/min Estimated GFR (MDRD) mL/min Glucose (70-110) mg/dL POC Glucose 108 H (74-106) mg/dl Calcium (8.7-10.3) mg/dL B-Natriuretic Peptide (0-100) pg/mL Specimen Type [place] Urine Color Yellow (YELLOW) Urine Appearance Clear (CLEAR) Urine pH 5.5 (5.0-9.0) Ur Specific [place] 1.010 (1.005-1.030) Urine Protein Trace H (NEGATIVE) mg/dL Urine Glucose (UA) Negative (NEGATIVE) mg/dL Urine Ketones Negative (NEGATIVE) mg/dL Urine Occult Blood Negative (NEGATIVE) Urine Nitrite Negative (NEGATIVE) Urine Bilirubin Negative (NEGATIVE) Urine Urobilinogen 0.2 (0.2-1.0) E.U./dL Ur Leukocyte Esterase Negative (NEGATIVE) Urine RBC 0-5 /HPF Urine WBC 0-5 /HPF Ur Epithelial Cells Few /LPF Urine Bacteria Few (NONE TO FEW) /HPF 11/09/16 11/09/16 11/09/16 Range/Units 06:20 07:35 07:35 WBC 17.9 H (5.0-10.0) 10^3/uL RBC 3.31 L (3.80-5.50) 10^6/uL Hgb 11.7 L (12.0-16.0) g/dL Hct 34.5 L (37.0-47.0) % MCV 104.4 H (82.0-92.0) fL MCH 35.3 H (27.0-31.0) pg MCHC 33.8 (32.0-36.0) g/dL RDW 13.9 (11.5-14.5) % Plt Count 104 L (150-300) 10^3/uL MPV 10.8 H (7.4-10.4) fL Neut % (Auto) 92.9 H (50.0-70.0) % Lymph % (Auto) 4.8 L (20.0-40.0) % [place] % (Auto) 2.1 (2.0-8.0) % Eos % (Auto) 0.1 L (1.0-3.0) % Baso % (Auto) 0.1 (0.0-1.0) % Neut # (Auto) 16.6 H (2.5-7.0) 10^3/uL Lymph # (Auto) 0.9 L (1.0-4.0) 10^3/uL [place] # (Auto) 0.4 (0.1-0.8) 10^3/uL Eos # (Auto) 0.0 L (0.1-0.3) 10^3/uL Baso # (Auto) 0.0 (0.0-0.1) 10^3/uL ABG pH (7.35-7.45) ABG pCO2 (35-45) mmHG ABG pO2 (80-105) mmHG ABG HCO3 (22-26) mmol/L ABG Total CO2 (23-27) mmol/L ABG O2 Saturation (95-98) % ABG Base Excess (-2-3) mmol/L O2 Delivery Device Oxygen Flow Rate L/min Sodium 144 (136-145) mmol/L Potassium 4.7 (3.3-5.3) mmol/L Chloride 107 (98-115) mmol/L Carbon Dioxide 34.1 H (21.0-32.0) mmol/L BUN 35 H (6-25) mg/dL Creatinine 1.33 H (0.51-1.17) mg/dL Est Cr Clr Drug Dosing 24.64 mL/min Estimated GFR (MDRD) 38 mL/min Glucose 174 H (70-110) mg/dL POC Glucose 167 H (74-106) mg/dl Calcium 10.0 (8.7-10.3) mg/dL B-Natriuretic Peptide (0-100) pg/mL Specimen Type Urine Color (YELLOW) Urine Appearance (CLEAR) Urine pH (5.0-9.0) Ur Specific [place] (1.005-1.030) Urine Protein (NEGATIVE) mg/dL Urine Glucose (UA) (NEGATIVE) mg/dL Urine Ketones (NEGATIVE) mg/dL Urine Occult Blood (NEGATIVE) Urine Nitrite (NEGATIVE) Urine Bilirubin (NEGATIVE) Urine Urobilinogen (0.2-1.0) E.U./dL Ur Leukocyte Esterase (NEGATIVE) Urine RBC /HPF Urine WBC /HPF Ur Epithelial Cells /LPF Urine Bacteria (NONE TO FEW) /HPF 11/09/16 Range/Units 07:35 WBC (5.0-10.0) 10^3/uL RBC (3.80-5.50) 10^6/uL Hgb (12.0-16.0) g/dL Hct (37.0-47.0) % MCV (82.0-92.0) fL MCH (27.0-31.0) pg MCHC (32.0-36.0) g/dL RDW (11.5-14.5) % Plt Count (150-300) 10^3/uL MPV (7.4-10.4) fL Neut % (Auto) (50.0-70.0) % Lymph % (Auto) (20.0-40.0) % [place] % (Auto) (2.0-8.0) % Eos % (Auto) (1.0-3.0) % Baso % (Auto) (0.0-1.0) % Neut # (Auto) (2.5-7.0) 10^3/uL Lymph # (Auto) (1.0-4.0) 10^3/uL [place] # (Auto) (0.1-0.8) 10^3/uL Eos # (Auto) (0.1-0.3) 10^3/uL Baso # (Auto) (0.0-0.1) 10^3/uL ABG pH (7.35-7.45) ABG pCO2 (35-45) mmHG ABG pO2 (80-105) mmHG ABG HCO3 (22-26) mmol/L ABG Total CO2 (23-27) mmol/L ABG O2 Saturation (95-98) % ABG Base Excess (-2-3) mmol/L O2 Delivery Device Oxygen Flow Rate L/min Sodium (136-145) mmol/L Potassium (3.3-5.3) mmol/L Chloride (98-115) mmol/L Carbon Dioxide (21.0-32.0) mmol/L BUN (6-25) mg/dL Creatinine (0.51-1.17) mg/dL Est Cr Clr Drug Dosing mL/min Estimated GFR (MDRD) mL/min Glucose (70-110) mg/dL POC Glucose (74-106) mg/dl Calcium (8.7-10.3) mg/dL B-Natriuretic Peptide 332 H (0-100) pg/mL Specimen Type Urine Color (YELLOW) Urine Appearance (CLEAR) Urine pH (5.0-9.0) Ur Specific [place] (1.005-1.030) Urine Protein (NEGATIVE) mg/dL Urine Glucose (UA) (NEGATIVE) mg/dL Urine Ketones (NEGATIVE) mg/dL Urine Occult Blood (NEGATIVE) Urine Nitrite (NEGATIVE) Urine Bilirubin (NEGATIVE) Urine Urobilinogen (0.2-1.0) E.U./dL Ur Leukocyte Esterase (NEGATIVE) Urine RBC /HPF Urine WBC /HPF Ur Epithelial Cells /LPF Urine Bacteria (NONE TO FEW) /HPF Med Orders - Current: Current Medications Hydrocodone Bitart/Acetaminophen (Lena 325-5 Mg) 1 tab PO Q3H PRN PRN Reason: Pain Last Admin: 11/09/16 06:22 Dose: 1 tab Albuterol (Ventolin Hfa) 0 gm INH Q4H PRN PRN Reason: Shortness of Breath Albuterol/Ipratropium (Duoneb 3.0-0.5 Mg/3 Ml) 3 ml NEB Q4H PRN PRN Reason: Shortness Of Breath/wheezing Last Admin: 11/09/16 06:24 Dose: 3 ml Bumetanide (Bumex) 0.5 mg PO BIDDIURETIC [facility] Last Admin: 11/09/16 08:39 Dose: 0.5 mg Calcium Citrate (Calcium Citrate + D) 2 tab PO DAILY [facility] Last Admin: 11/09/16 08:48 Dose: Not Given Cholecalciferol (Vitamin D3) 1,000 units PO DAILY@12 [facility] Dapsone (Dapsone) 100 mg PO DAILY [facility] Diclofenac Sodium (Voltaren 1% Gel) 0 gm TOP BID PRN PRN Reason: Pain Docusate Sodium (Colace) 100 mg PO BID [facility] Last Admin: 11/09/16 08:40 Dose: 100 mg Ferrous Sulfate (Ferrous Sulfate) 325 mg PO DAILY@1800 [facility] Last Admin: 11/08/16 17:22 Dose: 325 mg Glipizide (Glucotrol Xl) 2.5 mg PO BRK [facility] Last Admin: 11/09/16 08:39 Dose: 2.5 mg Levofloxacin/Dextrose 500 mg/ (Premix) 100 mls @ 100 mls/hr IV Q24H [facility] Last Admin: 11/08/16 14:03 Dose: 100 mls/hr Vancomycin HCl 1 gm/ Sodium (Chloride) 250 mls @ 167 mls/hr IV Q24H [facility] Last Admin: 11/08/16 12:34 Dose: 167 mls/hr Levothyroxine Sodium (Synthroid) 88 mcg PO 0700 [facility] Last Admin: 11/09/16 06:22 Dose: 88 mcg Lisinopril (Prinivil) 5 mg PO DAILY [facility] Last Admin: 11/09/16 08:42 Dose: 5 mg Methylprednisolone Sodium Succinate (Solu-Medrol) 40 mg IVPUSH Q12H [facility] Last Admin: 11/08/16 23:44 Dose: 40 mg Metoprolol Tartrate (Lopressor) 25 mg PO BID [facility] Last Admin: 11/09/16 08:42 Dose: 25 mg Multivitamins/Minerals (I-Silvina) 1 each PO QPM@1800 [facility] Last Admin: 11/08/16 17:41 Dose: Not Given Omeprazole (Omeprazole) 40 mg PO DAILY@1200 [facility] Last Admin: 11/08/16 13:49 Dose: Not Given Ondansetron HCl (Zofran) 4 mg IV Q4H PRN PRN Reason: Nausea/Vomiting Ondansetron HCl (Zofran Odt) 4 mg PO Q4H PRN PRN Reason: Nausea Polyethylene Glycol (Miralax) 17 gm PO Q2D PRN PRN Reason: Constipation Potassium Chloride (Klor-Con 10) 10 meq PO DAILY [facility] Last Admin: 11/09/16 08:42 Dose: 10 meq Pravastatin Sodium (Pravachol) 40 mg PO BEDTIME [facility] Last Admin: 11/08/16 20:33 Dose: 40 mg Sodium Chloride (Syrex Flush) 5 ml FLUSH Q8HR PRN PRN Reason: Keep Vein Open Last Admin: 11/08/16 23:47 Dose: 5 ml Sotalol HCl (Betapace) 80 mg PO BID [facility] Last Admin: 11/09/16 08:43 Dose: 80 mg Venlafaxine HCl (Effexor Xr) 150 mg PO DAILY [facility] Last Admin: 11/09/16 08:40 Dose: 150 mg Warfarin Sodium (Coumadin) 2.5 mg PO MOFR@18 [facility] Warfarin Sodium (Coumadin) 5 mg PO SUTUWETHSA@18 [facility] Last Admin: 11/08/16 17:22 Dose: 5 mg Discontinued Medications Hydrocodone Bitart/Acetaminophen (Lena 325-5 Mg) 1 tab PO Q6H PRN PRN Reason: Pain Last Admin: 11/08/16 13:51 Dose: 1 tab Albuterol (Proventil Neb Soln) Confirm Administered Dose 2.5 mg .ROUTE .STK-MED ONE Stop: 11/08/16 10:30 Last Admin: 11/08/16 14:13 Dose: Not Given Albuterol (Proventil Neb Soln) 2.5 mg NEB ONETIME ONE Stop: 11/08/16 12:29 Last Admin: 11/08/16 12:39 Dose: 2.5 mg Furosemide (Lasix) 40 mg IVPUSH NOW ONE Stop: 11/08/16 17:07 Last Admin: 11/08/16 17:24 Dose: 40 mg Levothyroxine Sodium (Synthroid) 88 mcg PO BEDTIME [facility] Last Admin: 11/08/16 20:34 Dose: Not Given - Exam Quality Assessment: supplemental oxygen General: alert, oriented, cooperative, no acute distress, other (Patient sitting on the edge of the bed, alert and oriented x3, in general looks much better from yesterday, no significant respiratory distress-O2 on at 5 L per nasal cannula per minute) HEENT: Pupils equal, Pupils reactive, EOMI, Mucous membr. moist/pink, Other ( wears glasses). No: Scleral icterus Neck: supple, trachea midline, no JVD, no thyromegaly. No: lymphadenopathy Lungs: Normal respiratory effort, Decreased breath sounds, Rales (few scattered) , Wheezing (minimal-much better), Other (In general lung sounds much better than yesterday-better aeration) Cardiovascular: Irregular Rhythm, Murmurs (1/6 systolic) Abdomen: bowel sounds present, soft, no tenderness, no distension, other ( colostomy working well). No: rigidity, rebound, guarding, tenderness, distension Extremities: no edema, other (right lower leg wound skin tear healing nicely-no unusual induration) Skin: warm, dry, intact, ecchymosis (scattered-chronic) Wound/Incisions: healing well (right lower leg skin tear) Neurological: no new focal deficit Psy/Mental Status: alert, normal affect, normal mood - Problem List Review Problem List Initiated/Reviewed/Updated: Yes - My Orders Last 24 Hours: My Active Orders 11/08/16 12:30 methylPREDNISolone Sod Succ [Solu-MEDROL] 40 mg IVPUSH Q12H 11/08/16 12:31 Albuterol [Ventolin HFA] 0 gm INH Q4H PRN Diclofenac Sodium [Voltaren 1% Gel] 0 gm TOP BID PRN Ondansetron [Zofran ODT] 4 mg PO Q4H PRN Polyethylene Glycol 3350 [MiraLAX] 17 gm PO Q2D PRN 11/08/16 12:39 Blood Glucose Check, Bedside [RC] 0700,1700 11/08/16 12:45 Omeprazole 40 mg PO DAILY@1200 glipiZIDE [Glucotrol XL] 2.5 mg PO BRK 11/08/16 13:30 Calcium Citrate/Vitamin D3 [Calcium Citrate + D] 2 tab PO DAILY 11/08/16 16:44 RT Incentive Spirometry [RC] ASDIRECTED 11/08/16 17:00 Bumetanide [Bumex] 0.5 mg PO BIDDIURETIC 11/08/16 17:02 Acetaminophen/HYDROcodone [Lena 325-5 MG] 1 tab PO Q3H PRN 11/08/16 18:00 Ferrous Sulfate 325 mg PO DAILY@1800 Lutein/Minerals/Vit A,C & E [I-Silvina] 1 each PO QPM@1800 Warfarin [Coumadin] 5 mg PO SUTUWETHSA@18 11/08/16 21:00 Docusate Sodium [Colace] 100 mg PO BID Metoprolol Tartrate [Lopressor] 25 mg PO BID Pravastatin [Pravachol] 40 mg PO BEDTIME Sotalol [Betapace] 80 mg PO BID 11/09/16 07:00 Levothyroxine [Synthroid] 88 mcg PO 0700 11/09/16 09:00 Dapsone 100 mg PO DAILY Lisinopril [Prinivil] 5 mg PO DAILY Potassium Chloride [Klor-Con 10] 10 meq PO DAILY Venlafaxine [Effexor XR] 150 mg PO DAILY 11/09/16 12:00 Cholecalciferol (Vitamin D3) [Vitamin D3] 1,000 units PO DAILY@12 11/10/16 18:00 Warfarin [Coumadin] 2.5 mg PO MOFR@18 - Assessment Assessment:: Assessment: Dyspnea/hypoxia/respiratory failure-acute on chronic-better control-secondary to below Acute pneumonia-right lower lobe-clinically improving/responding Acute COPD exacerbation-clinically responding/improving Rule out sepsis Acute chest pain/back pain secondary to above-slightly better Marked increased generalized weakness-acute on chronic-slightly better Complex medical case Leukocytosis secondary to [id number] secondary to corticosteroid therapy and infection Adult-onset diabetes mellitus type 2-blood sugar slightly elevated secondary to corticosteroid therapy and infection Right leg skin [id number]-[id number]-healing nicely Chronic anticoagulation therapy Chronic renal insufficiency-persistent Chronic back pain-muscle spasms-this part is doing well/controlled Hypertension-good control Hyperlipidemia Chronic corticosteroid therapy-Presently on burst of Solu-Medrol GERD Cholesterol lowering therapy Hypothyroidism CHF history - Plan Plan:: Plan: Reviewed present treatment regimen-continue same regimen except changes as listed below Continue to monitor her oxygenation status and titrate O2 to maintain adequate oxygenation but not suppress respiratory drive Continue IV antibiotics-Levaquin/vancomycin Continue IV corticosteroids-IV Solu-Medrol Long discussion with patient-she agrees with this evaluation and treatment plan In a.m.-CBC, BMP, INR Continue Saline lock IV Continue duo nebs Await culture results
[2016-11-09] MEDS: Omeprazole 20 MG Cap.CR PO SCH (11:42)
[2016-11-09] MEDS: Cholecalciferol (Vitamin D3) 1,000 Unit Tab PO SCH (11:42)
[2016-11-09] MEDS: Levofloxacin/Dextrose 5%-Water 500 MG in Premix Bag 1 BAG IV SCH (11:46)
[2016-11-09] MEDS: methylPREDNISolone Sodium Succinate 125 MG/2 ML SDV IVPUSH SCH ×2 (13:30→23:34)
[2016-11-09] MEDS ORDERED: Acetaminophen 325 MG Tab PO PRN ×2 (16:28→16:35)
[2016-11-09] MEDS: Warfarin 5 MG Tab PO SCH (18:58)
[2016-11-09] MEDS: Ferrous Sulfate 325 MG Tab PO SCH (18:58)
[2016-11-09] MEDS: Lutein/Minerals/Vit A,C & E Tab PO SCH (19:03)
[2016-11-09] MEDS: Pravastatin 20 MG Tab PO SCH (21:14)
[2016-11-10] MEDS: Levothyroxine 88 MCG Tab PO SCH (06:07)
[2016-11-10] MEDS: Albuterol/Ipratropium 3.0-0.5 MG/3 ML Neb Soln NEB PRN (09:04)
[2016-11-10] MEDS: Potassium Chloride 10 MEQ Tab.ER PO SCH (09:27)
[2016-11-10] MEDS: Docusate Sodium 100 MG Cap PO SCH ×2 (09:28→20:27)
[2016-11-10] MEDS: Calcium Citrate/Vitamin D3 315 MG-250 Unit Tab PO SCH (09:28)
[2016-11-10] MEDS: Bumetanide 1 MG Tab PO SCH ×2 (09:29→17:55)
[2016-11-10] MEDS: Venlafaxine 150 MG Cap.ER PO SCH (09:34)
[2016-11-10] MEDS: Acetaminophen/HYDROcodone 325-5 MG Tab PO PRN ×2 (09:34→13:34)
[2016-11-10] MEDS: Lisinopril 5 MG Tab PO SCH (09:35)
--- NOTE | 2016-11-10 10:56 | PCM.PN ---
- General Info Date of Service: 11/10/16 Functional Status: Reports: pain controlled, tolerating diet, incentive spirometry. Denies: new symptoms - Review of Systems General: Reports: Fatigue (Some fatigue but she reports improving). Denies: Fever HEENT: Reports: no symptoms Pulmonary: Reports: shortness of breath Cardiovascular: Reports: Dyspnea on Exertion. Denies: Orthopnea Gastrointestinal: Reports: No symptoms Genitourinary: Reports: no symptoms Musculoskeletal: Denies: leg pain, joint swelling Skin: Reports: pruritis, other (Skin tear right anterior lower leg present on a mission, [facility]) Neurological: Reports: No Symptoms Psychiatric: Reports: no symptoms - Patient Data Vitals - most recent: Last Vital Signs Temp 97.1 F 11/10/16 06:40 Pulse 72 11/10/16 09:04 Resp 24 H 11/10/16 06:40 BP 145/68 H 11/10/16 09:35 Pulse Ox 96 11/10/16 09:04 Weight - most recent: 125 lb I&O - last 24 hours: Intake & Output 11/09/16 11/10/16 11/10/16 22:59 06:59 14:59 Intake Total 725 200 Balance 725 200 Lab Results last 24 hrs: Laboratory Results - last 24 hr 11/09/16 11/10/16 11/10/16 Range/Units 17:53 06:06 07:15 WBC 15.2 H (5.0-10.0) 10^3/uL RBC 2.85 L (3.80-5.50) 10^6/uL Hgb 10.0 L (12.0-16.0) g/dL Hct 29.9 L (37.0-47.0) % MCV 104.7 H (82.0-92.0) fL MCH 35.1 H (27.0-31.0) pg MCHC 33.5 (32.0-36.0) g/dL RDW 14.0 (11.5-14.5) % Plt Count 104 L (150-300) 10^3/uL MPV 9.7 (7.4-10.4) fL Neut % (Auto) 91.6 H (50.0-70.0) % Lymph % (Auto) 4.6 L (20.0-40.0) % [place] % (Auto) 3.2 (2.0-8.0) % Eos % (Auto) 0.1 L (1.0-3.0) % Baso % (Auto) 0.5 (0.0-1.0) % Neut # (Auto) 13.9 H (2.5-7.0) 10^3/uL Lymph # (Auto) 0.7 L (1.0-4.0) 10^3/uL [place] # (Auto) 0.5 (0.1-0.8) 10^3/uL Eos # (Auto) 0.0 L (0.1-0.3) 10^3/uL Baso # (Auto) 0.1 (0.0-0.1) 10^3/uL PT (8.9-11.4) SEC INR (0.9-1.1) POC Glucose 157 H 254 H (74-106) mg/dl B-Natriuretic Peptide (0-100) pg/mL 11/10/16 11/10/16 Range/Units 07:15 07:15 WBC (5.0-10.0) 10^3/uL RBC (3.80-5.50) 10^6/uL Hgb (12.0-16.0) g/dL Hct (37.0-47.0) % MCV (82.0-92.0) fL MCH (27.0-31.0) pg MCHC (32.0-36.0) g/dL RDW (11.5-14.5) % Plt Count (150-300) 10^3/uL MPV (7.4-10.4) fL Neut % (Auto) (50.0-70.0) % Lymph % (Auto) (20.0-40.0) % [place] % (Auto) (2.0-8.0) % Eos % (Auto) (1.0-3.0) % Baso % (Auto) (0.0-1.0) % Neut # (Auto) (2.5-7.0) 10^3/uL Lymph # (Auto) (1.0-4.0) 10^3/uL [place] # (Auto) (0.1-0.8) 10^3/uL Eos # (Auto) (0.1-0.3) 10^3/uL Baso # (Auto) (0.0-0.1) 10^3/uL PT 34.6 H (8.9-11.4) SEC INR 3.2 H (0.9-1.1) POC Glucose (74-106) mg/dl B-Natriuretic Peptide 678 H (0-100) pg/mL Erick Results last 24 hrs: Microbiology 11/08/16 12:25 Aerobic Blood Culture - Preliminary Blood - Venous - Lab Draw NO GROWTH AFTER 1 DAY Anaerobic Blood Culture - Preliminary NO GROWTH AFTER 1 DAY 11/08/16 12:00 Aerobic Blood Culture - Preliminary Blood - Venous NO GROWTH AFTER 1 DAY Anaerobic Blood Culture - Preliminary NO GROWTH AFTER 1 DAY Med Orders - Current: Current Medications Acetaminophen (Tylenol) 325 - 650 mg PO Q6H PRN PRN Reason: Pain (mild 1-3) Last Admin: 11/09/16 16:35 Dose: 650 mg Hydrocodone Bitart/Acetaminophen ([place] 325-5 Mg) 1 tab PO Q3H PRN PRN Reason: Pain Last Admin: 11/10/16 09:34 Dose: 1 tab Albuterol (Ventolin Hfa) 0 gm INH Q4H PRN PRN Reason: Shortness of Breath Albuterol/Ipratropium (Duoneb 3.0-0.5 Mg/3 Ml) 3 ml NEB Q4H PRN PRN Reason: Shortness Of Breath/wheezing Last Admin: 11/10/16 09:04 Dose: 3 ml Bumetanide (Bumex) 0.5 mg PO BIDDIURETIC [facility] Last Admin: 11/10/16 09:29 Dose: 0.5 mg Calcium Citrate (Calcium Citrate + D) 2 tab PO DAILY [facility] Last Admin: 11/10/16 09:28 Dose: 1 tab Cholecalciferol (Vitamin D3) 1,000 units PO DAILY@12 [facility] Last Admin: 11/09/16 11:42 Dose: 1,000 units Dapsone (Dapsone) 100 mg PO DAILY [facility] Last Admin: 11/09/16 09:00 Dose: Not Given Diclofenac Sodium (Voltaren 1% Gel) 0 gm TOP BID PRN PRN Reason: Pain Docusate Sodium (Colace) 100 mg PO BID [facility] Last Admin: 11/10/16 09:28 Dose: 100 mg Ferrous Sulfate (Ferrous Sulfate) 325 mg PO DAILY@1800 [facility] Last Admin: 11/09/16 18:58 Dose: 325 mg Glipizide (Glucotrol Xl) 2.5 mg PO BRK [facility] Last Admin: 11/09/16 08:39 Dose: 2.5 mg Levofloxacin/Dextrose 500 mg/ (Premix) 100 mls @ 100 mls/hr IV Q24H [facility] Last Admin: 11/09/16 11:46 Dose: 100 mls/hr Vancomycin HCl 1 gm/ Sodium (Chloride) 250 mls @ 167 mls/hr IV Q24H [facility] Last Admin: 11/09/16 13:30 Dose: 167 mls/hr Levothyroxine Sodium (Synthroid) 88 mcg PO 0700 [facility] Last Admin: 11/10/16 06:07 Dose: 88 mcg Lisinopril (Prinivil) 5 mg PO DAILY [facility] Last Admin: 11/10/16 09:35 Dose: 5 mg Methylprednisolone Sodium Succinate (Solu-Medrol) 40 mg IVPUSH Q12H [facility] Last Admin: 11/09/16 23:34 Dose: 40 mg Metoprolol Tartrate (Lopressor) 25 mg PO BID [facility] Last Admin: 11/09/16 21:14 Dose: 25 mg Multivitamins/Minerals (I-Silvina) 1 each PO QPM@1800 [facility] Last Admin: 11/09/16 19:03 Dose: 1 each Omeprazole (Omeprazole) 40 mg PO DAILY@1200 [facility] Last Admin: 11/09/16 11:42 Dose: 40 mg Ondansetron HCl (Zofran) 4 mg IV Q4H PRN PRN Reason: Nausea/Vomiting Ondansetron HCl (Zofran Odt) 4 mg PO Q4H PRN PRN Reason: Nausea Polyethylene Glycol (Miralax) 17 gm PO Q2D PRN PRN Reason: Constipation Last Admin: 11/09/16 23:34 Dose: 17 gm Potassium Chloride (Klor-Con 10) 10 meq PO DAILY [facility] Last Admin: 11/10/16 09:27 Dose: 10 meq Pravastatin Sodium (Pravachol) 40 mg PO BEDTIME [facility] Last Admin: 11/09/16 21:14 Dose: 40 mg Sodium Chloride (Syrex Flush) 5 ml FLUSH Q8HR PRN PRN Reason: Keep Vein Open Last Admin: 11/08/16 23:47 Dose: 5 ml Sotalol HCl (Betapace) 80 mg PO BID [facility] Last Admin: 11/09/16 21:14 Dose: 80 mg Vancomycin HCl (Pharmacy To Dose - Vancomycin) 0 dose .XX ASDIRECTED [facility] Venlafaxine HCl (Effexor Xr) 150 mg PO DAILY [facility] Last Admin: 11/10/16 09:34 Dose: 150 mg Warfarin Sodium (Coumadin) 2.5 mg PO MOFR@18 [facility] Warfarin Sodium (Coumadin) 5 mg PO SUTUWETHSA@18 [facility] Last Admin: 11/09/16 18:58 Dose: 5 mg Discontinued Medications Acetaminophen (Tylenol) 325 - 650 mg PO Q6H PRN PRN Reason: Pain (mild 1-3) Hydrocodone Bitart/Acetaminophen ([place] 325-5 Mg) 1 tab PO Q6H PRN PRN Reason: Pain Last Admin: 11/08/16 13:51 Dose: 1 tab Albuterol (Proventil Neb Soln) Confirm Administered Dose 2.5 mg .ROUTE .STK-MED ONE Stop: 11/08/16 10:30 Last Admin: 11/08/16 14:13 Dose: Not Given Albuterol (Proventil Neb Soln) 2.5 mg NEB ONETIME ONE Stop: 11/08/16 12:29 Last Admin: 11/08/16 12:39 Dose: 2.5 mg Furosemide (Lasix) 40 mg IVPUSH NOW ONE Stop: 11/08/16 17:07 Last Admin: 11/08/16 17:24 Dose: 40 mg Levothyroxine Sodium (Synthroid) 88 mcg PO BEDTIME [facility] Last Admin: 11/08/16 20:34 Dose: Not Given - Exam Quality Assessment: supplemental oxygen (Requiring more oxygen and then from [facility]) General: alert, oriented, no acute distress Neck: supple Lungs: Decreased breath sounds, Wheezing (Very slight wheezing) Cardiovascular: Irregular Rhythm, Murmurs (Aortic murmur heard right-sided chest ) Skin: other (Bilateral lower extremity brawniness to her skin, thin in appearance, overall improvement since previous admission) Wound/Incisions: dressing dry and intact (Steri-Strips, right anterior leg avulsion present on admission) Psy/Mental Status: alert, normal affect, normal mood - Problem List Review Problem List Initiated/Reviewed/Updated: Yes - Plan Plan:: ASSESSMENT/PLAN Pneumonia, healthcare acquired, right lower lobe, clinically responding to antibiotics, requiring more oxygen than a [facility], white count decreasing, continue with levofloxacin and vancomycin, no sputum culture collected, blood cultures no growth Acute COPD exacerbation, consulted with respiratory therapy [facility]--will change to schedule every 6h, clinically responding/improving--change IV Solu-Medrol to oral with reduced taper dose Dyspnea/hypoxiap; admission PO2 54, repeat ABG in a.m. however seems to be improving--although requiring 4 L O2 Acute chest pain/back pain--this is now resolved likely pleuritic Leukocytosis, responded antibiotics, also on steroids, doubtful if sepsis, good blood pressure, good clinical appearance, Adult-onset diabetes mellitus type 2-blood sugar slightly elevated secondary to corticosteroid therapy and infection Right leg skin ibgu-xgklujtkq-dde-healing nicely--Steri-Strips Chronic anticoagulation therapy--INR slightly elevated at 3.2--holding Coumadin dose tonight Chronic renal insufficiency-persistent, reduce stroke clearance at 24 quite significant vancomycin trough per pharmacy Chronic back pain-muscle spasms-much improvement Hypertension-good control Hyperlipidemia Chronic corticosteroid therapy-Presently on burst of Solu-Medrol GERD Cholesterol lowering therapy Hypothyroidism CHF history
[2016-11-10] MEDS: Levofloxacin/Dextrose 5%-Water 500 MG in Premix Bag 1 BAG IV SCH (11:33)
[2016-11-10] MEDS ORDERED: predniSONE 20 MG Tab PO SCH (12:00)
[2016-11-10] MEDS: Cholecalciferol (Vitamin D3) 1,000 Unit Tab PO SCH (12:39)
[2016-11-10] MEDS: glipiZIDE 2.5 MG Tab.ER PO SCH (12:39)
[2016-11-10] MEDS: Omeprazole 20 MG Cap.CR PO SCH (12:40)
[2016-11-10] MEDS: predniSONE 20 MG Tab PO SCH (12:41)
[2016-11-10] MEDS: Metoprolol Tartrate 25 MG Tab PO SCH ×2 (12:42→20:27)
[2016-11-10] MEDS: Sotalol 80 MG Tab PO SCH ×2 (12:42→20:27)
[2016-11-10] MEDS: Albuterol/Ipratropium 3.0-0.5 MG/3 ML Neb Soln NEB SCH ×2 (16:03→22:24)
[2016-11-10] MEDS: Ferrous Sulfate 325 MG Tab PO SCH (17:56)
[2016-11-10] MEDS ORDERED: Warfarin 2.5 MG Tab PO SCH (18:00)
[2016-11-10] MEDS ORDERED: Omeprazole 20 MG Cap.CR PO SCH (20:00)
[2016-11-10] MEDS: Pravastatin 20 MG Tab PO SCH (20:26)
[2016-11-10] MEDS: Sodium Chloride 0.9% 5 ML Syringe FLUSH PRN (20:28)
[2016-11-11] MEDS: Albuterol/Ipratropium 3.0-0.5 MG/3 ML Neb Soln NEB SCH ×4 (05:52→22:36)
[2016-11-11] MEDS: Levothyroxine 88 MCG Tab PO SCH (06:07)
[2016-11-11 07:48] LABS: BASE EXCESS ARTERIAL 5 mmol/L (-2-3); BICARBONATE,ARTERIAL 29.6 mmol/L (22-26); O2 DELIVERY DEVICE NASAL CANNULA; O2 FLOW RATE 2 L/min; O2 SATURATION ARTERIAL 96 % (95-98); PCO2 ARTERIAL 46 mmHG (35-45); PO2 ARTERIAL 84 mmHG (80-105)
[2016-11-11] MEDS: Venlafaxine 150 MG Cap.ER PO SCH (09:30)
[2016-11-11] MEDS: Bumetanide 1 MG Tab PO SCH ×2 (09:30→17:36)
[2016-11-11] MEDS: Docusate Sodium 100 MG Cap PO SCH ×2 (09:30→21:33)
[2016-11-11] MEDS: Potassium Chloride 10 MEQ Tab.ER PO SCH (09:30)
[2016-11-11] MEDS: glipiZIDE 2.5 MG Tab.ER PO SCH (09:30)
[2016-11-11] MEDS: Calcium Citrate/Vitamin D3 315 MG-250 Unit Tab PO SCH ×2 (09:30→11:54)
[2016-11-11] MEDS: Lutein/Minerals/Vit A,C & E Tab PO SCH (09:30)
[2016-11-11] MEDS: Metoprolol Tartrate 25 MG Tab PO SCH ×2 (11:06→21:34)
[2016-11-11] MEDS: Lisinopril 5 MG Tab PO SCH (11:07)
[2016-11-11] MEDS: Sotalol 80 MG Tab PO SCH ×2 (11:10→11:42)
--- NOTE | 2016-11-11 11:14 | PCM.PN ---
- General Info Date of Service: 11/11/16 Functional Status: Reports: pain controlled, tolerating diet, incentive spirometry. Denies: new symptoms - Review of Systems General: Reports: No Symptoms HEENT: Reports: no symptoms Pulmonary: Reports: wheezing. Denies: shortness of breath, cough Cardiovascular: Reports: No Symptoms Gastrointestinal: Reports: Other (Colostomy). Denies: Diarrhea, Nausea Genitourinary: Reports: no symptoms Musculoskeletal: Denies: back pain Skin: Reports: dryness, bruising Neurological: Reports: No Symptoms Psychiatric: Reports: no symptoms - Patient Data Vitals - most recent: Last Vital Signs Temp 97.2 F 11/11/16 06:10 Pulse 56 L 11/11/16 06:10 Resp 22 H 11/11/16 06:10 BP 174/69 H 11/11/16 06:10 Pulse Ox 93 L 11/11/16 06:10 Weight - most recent: 125 lb I&O - last 24 hours: Intake & Output 11/10/16 11/11/16 11/11/16 22:59 06:59 14:59 Intake Total 840 50 Balance 840 50 Lab Results last 24 hrs: Laboratory Results - last 24 hr 11/10/16 11/11/16 11/11/16 Range/Units 17:18 06:02 07:30 WBC (5.0-10.0) 10^3/uL RBC (3.80-5.50) 10^6/uL Hgb (12.0-16.0) g/dL Hct (37.0-47.0) % MCV (82.0-92.0) fL MCH (27.0-31.0) pg MCHC (32.0-36.0) g/dL RDW (11.5-14.5) % Plt Count (150-300) 10^3/uL MPV (7.4-10.4) fL Neut % (Auto) (50.0-70.0) % Lymph % (Auto) (20.0-40.0) % [place] % (Auto) (2.0-8.0) % Eos % (Auto) (1.0-3.0) % Baso % (Auto) (0.0-1.0) % Neut # (Auto) (2.5-7.0) 10^3/uL Lymph # (Auto) (1.0-4.0) 10^3/uL [place] # (Auto) (0.1-0.8) 10^3/uL Eos # (Auto) (0.1-0.3) 10^3/uL Baso # (Auto) (0.0-0.1) 10^3/uL PT 30.1 H (8.9-11.4) SEC INR 2.8 H (0.9-1.1) ABG pH (7.35-7.45) ABG pCO2 (35-45) mmHG ABG pO2 (80-105) mmHG ABG HCO3 (22-26) mmol/L ABG Total CO2 (23-27) mmol/L ABG O2 Saturation (95-98) % ABG Base Excess (-2-3) mmol/L O2 Delivery Device Oxygen Flow Rate L/min Sodium (136-145) mmol/L Potassium (3.3-5.3) mmol/L Chloride (98-115) mmol/L Carbon Dioxide (21.0-32.0) mmol/L BUN (6-25) mg/dL Creatinine (0.51-1.17) mg/dL Est Cr Clr Drug Dosing mL/min Estimated GFR (MDRD) mL/min Glucose (70-110) mg/dL POC Glucose 198 H 86 (74-106) mg/dl Calcium (8.7-10.3) mg/dL 11/11/16 11/11/16 11/11/16 Range/Units 07:40 07:40 07:40 WBC 12.3 H (5.0-10.0) 10^3/uL RBC 2.93 L (3.80-5.50) 10^6/uL Hgb 10.0 L (12.0-16.0) g/dL Hct 30.7 L (37.0-47.0) % MCV 104.6 H (82.0-92.0) fL MCH 34.1 H (27.0-31.0) pg MCHC 32.6 (32.0-36.0) g/dL RDW 14.1 (11.5-14.5) % Plt Count 126 L (150-300) 10^3/uL MPV 10.2 (7.4-10.4) fL Neut % (Auto) 85.0 H (50.0-70.0) % Lymph % (Auto) 9.1 L (20.0-40.0) % [place] % (Auto) 5.2 (2.0-8.0) % Eos % (Auto) 0.3 L (1.0-3.0) % Baso % (Auto) 0.4 (0.0-1.0) % Neut # (Auto) 10.6 H (2.5-7.0) 10^3/uL Lymph # (Auto) 1.1 (1.0-4.0) 10^3/uL [place] # (Auto) 0.6 (0.1-0.8) 10^3/uL Eos # (Auto) 0.0 L (0.1-0.3) 10^3/uL Baso # (Auto) 0.0 (0.0-0.1) 10^3/uL PT (8.9-11.4) SEC INR (0.9-1.1) ABG pH 7.42 (7.35-7.45) ABG pCO2 46 H (35-45) mmHG ABG pO2 84 (80-105) mmHG ABG HCO3 29.6 H (22-26) mmol/L ABG Total CO2 31 H (23-27) mmol/L ABG O2 Saturation 96 (95-98) % ABG Base Excess 5 H (-2-3) mmol/L O2 Delivery Device Nasal cannula Oxygen Flow Rate 2 L/min Sodium 144 (136-145) mmol/L Potassium 3.7 (3.3-5.3) mmol/L Chloride 107 (98-115) mmol/L Carbon Dioxide 34.2 H (21.0-32.0) mmol/L BUN 40 H (6-25) mg/dL Creatinine 1.15 (0.51-1.17) mg/dL Est Cr Clr Drug Dosing 28.49 mL/min Estimated GFR (MDRD) 46 mL/min Glucose 84 (70-110) mg/dL POC Glucose (74-106) mg/dl Calcium 9.6 (8.7-10.3) mg/dL Erick Results last 24 hrs: Microbiology 11/08/16 12:25 Aerobic Blood Culture - Preliminary Blood - Venous - Lab Draw NO GROWTH AFTER 2 DAYS Anaerobic Blood Culture - Preliminary NO GROWTH AFTER 2 DAYS 11/08/16 12:00 Aerobic Blood Culture - Preliminary Blood - Venous NO GROWTH AFTER 2 DAYS Anaerobic Blood Culture - Preliminary NO GROWTH AFTER 2 DAYS Med Orders - Current: Current Medications Acetaminophen (Tylenol) 325 - 650 mg PO Q6H PRN PRN Reason: Pain (mild 1-3) Last Admin: 11/09/16 16:35 Dose: 650 mg Hydrocodone Bitart/Acetaminophen ([place] 325-5 Mg) 1 tab PO Q3H PRN PRN Reason: Pain Last Admin: 11/10/16 13:34 Dose: 1 tab Albuterol (Ventolin Hfa) 0 gm INH Q4H PRN PRN Reason: Shortness of Breath Albuterol/Ipratropium (Duoneb 3.0-0.5 Mg/3 Ml) 3 ml NEB Q6HRRT [facility] Last Admin: 11/11/16 05:52 Dose: 3 ml Bumetanide (Bumex) 0.5 mg PO BIDDIURETIC [facility] Last Admin: 11/10/16 17:55 Dose: 0.5 mg Calcium Citrate (Calcium Citrate + D) 2 tab PO DAILY [facility] Last Admin: 11/10/16 09:28 Dose: 1 tab Cholecalciferol (Vitamin D3) 1,000 units PO DAILY@12 [facility] Last Admin: 11/10/16 12:39 Dose: 1,000 units Dapsone (Dapsone) 100 mg PO DAILY [facility] Last Admin: 11/10/16 12:39 Dose: 100 mg Diclofenac Sodium (Voltaren 1% Gel) 0 gm TOP BID PRN PRN Reason: Pain Docusate Sodium (Colace) 100 mg PO BID [facility] Last Admin: 11/10/16 20:27 Dose: 100 mg Ferrous Sulfate (Ferrous Sulfate) 325 mg PO DAILY@1800 [facility] Last Admin: 11/10/16 17:56 Dose: 325 mg Glipizide (Glucotrol Xl) 2.5 mg PO BRK [facility] Last Admin: 11/10/16 12:39 Dose: 2.5 mg Vancomycin HCl 0.75 gm/ Sodium (Chloride) 265 mls @ 212 mls/hr IV Q24H [facility] Last Admin: 11/10/16 13:41 Dose: 212 mls/hr Levofloxacin/Dextrose (Levaquin In D5w 250 Mg/50 Ml) 50 mls @ 50 mls/hr IV Q24H [facility] Levothyroxine Sodium (Synthroid) 88 mcg PO 0700 [facility] Last Admin: 11/11/16 06:07 Dose: 88 mcg Lisinopril (Prinivil) 5 mg PO DAILY [facility] Last Admin: 11/10/16 09:35 Dose: 5 mg Metoprolol Tartrate (Lopressor) 25 mg PO BID [facility] Last Admin: 11/10/16 20:27 Dose: 25 mg Multivitamins/Minerals (I-Silvina) 1 each PO DAILY [facility] Omeprazole (Omeprazole) 40 mg PO DAILY@2000 [facility] Ondansetron HCl (Zofran) 4 mg IV Q4H PRN PRN Reason: Nausea/Vomiting Ondansetron HCl (Zofran Odt) 4 mg PO Q4H PRN PRN Reason: Nausea Polyethylene Glycol (Miralax) 17 gm PO Q2D PRN PRN Reason: Constipation Last Admin: 11/09/16 23:34 Dose: 17 gm Potassium Chloride (Klor-Con 10) 10 meq PO DAILY [facility] Last Admin: 11/10/16 09:27 Dose: 10 meq Pravastatin Sodium (Pravachol) 40 mg PO BEDTIME [facility] Last Admin: 11/10/16 20:26 Dose: 40 mg Prednisone (Prednisone) 40 mg PO DAILY@1200 [facility] PRN Reason: Taper Stop: 11/18/16 11:59 Last Admin: 11/10/16 12:41 Dose: 40 mg Sodium Chloride (Syrex Flush) 5 ml FLUSH Q8HR PRN PRN Reason: Keep Vein Open Last Admin: 11/10/16 20:28 Dose: 5 ml Sotalol HCl (Betapace) 120 mg PO DAILY [facility] Vancomycin HCl (Pharmacy To Dose - Vancomycin) 0 dose .XX ASDIRECTED [facility] Venlafaxine HCl (Effexor Xr) 150 mg PO DAILY [facility] Last Admin: 11/10/16 09:34 Dose: 150 mg Warfarin Sodium (Coumadin) 2.5 mg PO MOFR@18 [facility] Warfarin Sodium (Coumadin) 5 mg PO SUTUWETHSA@18 [facility] Last Admin: 11/09/16 18:58 Dose: 5 mg Warfarin Sodium (Coumadin) 2.5 mg PO ONETIME ONE Stop: 11/11/16 18:01 Discontinued Medications Acetaminophen (Tylenol) 325 - 650 mg PO Q6H PRN PRN Reason: Pain (mild 1-3) Hydrocodone Bitart/Acetaminophen ([place] 325-5 Mg) 1 tab PO Q6H PRN PRN Reason: Pain Last Admin: 11/08/16 13:51 Dose: 1 tab Albuterol (Proventil Neb Soln) Confirm Administered Dose 2.5 mg .ROUTE .STK-MED ONE Stop: 11/08/16 10:30 Last Admin: 11/08/16 14:13 Dose: Not Given Albuterol (Proventil Neb Soln) 2.5 mg NEB ONETIME ONE Stop: 11/08/16 12:29 Last Admin: 11/08/16 12:39 Dose: 2.5 mg Albuterol/Ipratropium (Duoneb 3.0-0.5 Mg/3 Ml) 3 ml NEB Q4H PRN PRN Reason: Shortness Of Breath/wheezing Last Admin: 11/10/16 09:04 Dose: 3 ml Furosemide (Lasix) 40 mg IVPUSH NOW ONE Stop: 11/08/16 17:07 Last Admin: 11/08/16 17:24 Dose: 40 mg Levofloxacin/Dextrose 500 mg/ (Premix) 100 mls @ 100 mls/hr IV Q24H [facility] Last Admin: 11/10/16 11:33 Dose: 100 mls/hr Vancomycin HCl 1 gm/ Sodium (Chloride) 250 mls @ 167 mls/hr IV Q24H [facility] Last Admin: 11/09/16 13:30 Dose: 167 mls/hr Levothyroxine Sodium (Synthroid) 88 mcg PO BEDTIME [facility] Last Admin: 11/08/16 20:34 Dose: Not Given Methylprednisolone Sodium Succinate (Solu-Medrol) 40 mg IVPUSH Q12H [facility] Last Admin: 11/09/16 23:34 Dose: 40 mg Multivitamins/Minerals (I-Silvina) 1 each PO QPM@1800 [facility] Last Admin: 11/09/16 19:03 Dose: 1 each Omeprazole (Omeprazole) 40 mg PO DAILY@1200 [facility] Last Admin: 11/10/16 12:40 Dose: 40 mg Omeprazole (Omeprazole) 40 mg PO DAILY@2000 [facility] Prednisone (Prednisone) 40 mg PO DAILY@1200 [facility] PRN Reason: Taper Stop: 11/18/16 11:59 Sotalol HCl (Betapace) 80 mg PO BID [facility] Last Admin: 11/10/16 20:27 Dose: 80 mg - Exam Quality Assessment: supplemental oxygen. No: skin breakdown General: alert, oriented Neck: supple Lungs: Decreased breath sounds, Wheezing (Very slight wheeze) Cardiovascular: Regular Rate, Regular Rhythm, Murmurs (Aorta apex) Abdomen: other (Colostomy full). No: distension Back Exam: No: CVA Tenderness (L), CVA Tenderness (R) Extremities: no edema Skin: other (Brawniness lower extremities) Wound/Incisions: healing well (Healing skin tear right anterior murray), dressing dry and intact. No: erythema Neurological: no new focal deficit Psy/Mental Status: alert, normal affect, normal mood, other (Very good affect) - Problem List Review Problem List Initiated/Reviewed/Updated: Yes - My Orders Last 24 Hours: My Active Orders 11/10/16 12:00 predniSONE 40 mg PO DAILY@1200 11/10/16 16:00 Albuterol/Ipratropium [DuoNeb 3.0-0.5 MG/3 ML] 3 ml NEB Q6HRRT 11/11/16 09:28 Sotalol [Betapace] 120 mg PO DAILY 11/11/16 09:31 INR,PT,PROTHROMBIN TIME [COAG] Routine 11/11/16 12:30 VANCOMYCIN TROUGH [CHEM] Routine 11/11/16 18:00 Warfarin [Coumadin] 2.5 mg PO ONETIME ONE - Plan Plan:: ASSESSMENT/PLAN Pneumonia, healthcare acquired, right lower lobe, clinically responding to antibiotics, ABGs much improved today, white count decreasing, continue with levofloxacin and vancomycin, no sputum culture collected, blood cultures no growth Acute COPD exacerbation, consulted with respiratory therapy patient on scheduled duo nebs at skilled nursing--changed yesterday to scheduled every 6h, clinically responding/improving--changed IV Solu-Medrol to oral with reduced taper dose Dyspnea/hypoxiap; admission PO2 54--now much improved without CO2 retention. Acute chest pain/back pain--this is now resolved likely pleuritic Leukocytosis, responding well to antibiotics, also on steroids, no epsis, good blood pressure, good clinical appearance, Adult-onset diabetes mellitus type 2-blood sugar slightly elevated secondary to corticosteroid therapy and infection Right leg skin afft-wcnnxzhfe-mjv-healing nicely--Steri-Strips Chronic anticoagulation therapy--INR slightly elevated at 2.8--reduce dosage tonight Chronic renal insufficiency-persistent, reduce stroke clearance at 24 quite significant vancomycin trough per pharmacy Chronic back pain-muscle spasms-much improvement Hypertension-good control Hyperlipidemia Chronic corticosteroid therapy-Presently on burst of Solu-Medrol GERD Cholesterol lowering therapy Hypothyroidism CHF history Overall plan, clinically doing well, will change sotalol from 80 twice a day to 120 daily due to renal clearance. Continue with antibiotics, ABG looks well, anticipate discharge . Reduce Coumadin dosage tonight
[2016-11-11] MEDS ORDERED: Sotalol 80 MG Tab PO ONE (11:15)
[2016-11-11] MEDS: Levofloxacin/Dextrose 5%-Water 50 ML IV SCH (11:46)
[2016-11-11] MEDS: predniSONE 20 MG Tab PO SCH (11:50)
[2016-11-11] MEDS: Cholecalciferol (Vitamin D3) 1,000 Unit Tab PO SCH (11:53)
[2016-11-11] MEDS: Ferrous Sulfate 325 MG Tab PO SCH (17:36)
[2016-11-11] MEDS ORDERED: Warfarin 2.5 MG Tab PO ONE (18:00)
[2016-11-11] MEDS ORDERED: Omeprazole 20 MG Cap.CR PO SCH (20:00)
[2016-11-11] MEDS: Pravastatin 20 MG Tab PO SCH (21:33)
[2016-11-12] MEDS: Albuterol/Ipratropium 3.0-0.5 MG/3 ML Neb Soln NEB SCH ×2 (05:24→11:18)
[2016-11-12] MEDS: Levothyroxine 88 MCG Tab PO SCH (06:06)
[2016-11-12 07:18] VITALS: BP 141/51
[2016-11-12] MEDS: Bumetanide 1 MG Tab PO SCH (08:21)
[2016-11-12] MEDS: Lutein/Minerals/Vit A,C & E Tab PO SCH (08:21)
[2016-11-12] MEDS: Docusate Sodium 100 MG Cap PO SCH (08:22)
[2016-11-12] MEDS: glipiZIDE 2.5 MG Tab.ER PO SCH (08:22)
[2016-11-12] MEDS: Calcium Citrate/Vitamin D3 315 MG-250 Unit Tab PO SCH (08:22)
[2016-11-12] MEDS: Potassium Chloride 10 MEQ Tab.ER PO SCH (08:23)
[2016-11-12] MEDS: Venlafaxine 150 MG Cap.ER PO SCH (08:23)
[2016-11-12] MEDS: Metoprolol Tartrate 25 MG Tab PO SCH (09:36)
[2016-11-12] MEDS: Sotalol 80 MG Tab PO SCH (09:36)
[2016-11-12] MEDS: Lisinopril 5 MG Tab PO SCH (09:57)
[2016-11-12] MEDS: Levofloxacin/Dextrose 5%-Water 50 ML IV SCH (10:41)
[2016-11-12] MEDS: predniSONE 20 MG Tab PO SCH (12:05)
[2016-11-12] MEDS: Cholecalciferol (Vitamin D3) 1,000 Unit Tab PO SCH (12:05)
[2016-11-13] MEDS ORDERED: Albuterol 0.083% 2.5 MG/3 ML Neb Soln INH ONE (07:43)
--- NOTE | 2016-11-13 08:16 | DISCH ---
She was admitted in inpatient 11/08/2016 and discharged from inpatient 11/12/2016. FINAL DIAGNOSES: 1. Pneumonia healthcare-acquired, right lower lobe much improved. 2. Hypoxia, PO2 went from 54 to 83, much improved. 3. Acute chronic obstructive pulmonary disease exacerbation, improved. 4. Leukocytosis, now normalized. 5. Right skin tear traumatic present on admission. Healing nicely. 6. Chronic anticoagulation therapy 7. Chronic renal insufficiency persistent, renal clearance low, medication adjusted. 8. Chronic back pain, muscle spasms much improved. 9. Chest wall pain much improved, likely pleuritic. 10.Hypertension, good control. 11.Hyperlipidemia. 12.Hypothyroidism. 13.Congestive heart failure history. 14.Gastroesophageal reflux disease. HISTORY: This 81-year-old female who has a very extreme complex medical history. She is a resident of a long-term care facility. She came in with right posterior lower chest and pleuritic chest pain somewhat increased on shortness of breath. Symptoms started the day she came in, it was very difficult for her to take a deep breath. It was noted on chest x-ray for her to have a right lower lobe pneumonia and also a mild acute COPD exacerbation, so she was admitted for ongoing IV antibiotics, steroids, and further workup and treatment. It was noted in the ED for her to have a leukocytosis also. HOSPITAL COURSE: Hospital course went well. Despite her complex medical history, she did quite well. We did treat her pneumonia with renal-dosed antibiotics of vancomycin, pharmacy to dose. Also with levofloxacin, she did have a vancomycin trough therapeutic at 12.6. She did come in with a white count elevated slightly with 12.3, with 85% of neutrophils. She did not have any reactive thrombocytosis. Her INR was 2.8 on admission, it was 1.9 on discharge, this will have to be adjusted. She did have a significant PO2 level low of 53 on admission on arterial blood gas, however, as we started aggressively treating her pulmonary infection, her PO2 level came up to 84. She did not have any CO2 retention. Normal pH. She did require a little more oxygen than her normal baseline, however, that was decreasing on discharge. She felt much better. We ruled out any sepsis. She did have urine culture, which showed Enterococcus species. Definitive cultures did show sensitivity to vancomycin and levofloxacin, we had her on those agents cross covered due to pneumonia. She had no signs of sepsis. We did change her sotalol from 80 b.i.d. to 120 daily due to decreased creatinine clearance. LABORATORY DATA: Labs on discharge, white count down to 9.5, percentage neutrophils decreasing back to the right around 78%, still slightly elevated. INR slightly under therapeutic range of 1.9; pH 7.42, PCO2 of 46, PO2 of 84, that is on 2 L nasal cannula. Blood glucose this morning was 98, vancomycin trough 12.6, temperature 96.6. Respiratory rate 16, O2 sat is 91%, blood pressure 141/51. Chest x-ray did show some possible small effusions with mild to moderate central and bibasilar edema and/or infiltrates mainly left lower lobe. We did give her some IV Solu-Medrol taper dose. She will be discharged on tapered dose. MEDICATIONS ON DISCHARGE: 1. Prednisone taper 30 mg p.o. daily x2 days, 20 mg p.o. daily x2 days, then her maintenance schedule of 10 mg a.m. and 5 mg p.m. also. 2. Sotalol 120 mg p.o. q.a.m. (decreased from 80 b.i.d. due to renal clearance). 3. Levofloxacin 750 mg every 48 hours. She can start this on tomorrow 11/13/2016. Blood cultures no growth after 3 days. DISPOSITION: The patient will be discharged home back to long-term care. She feels good. She feels ready to be discharged. She is to report any fever, worsening shortness of breath, or mucus change in production. She also will continue with her medication. She can be followed up next week with provider. MEDICAL DECISION MAKIN minutes spent on discharge planning and process. /[id number]/MODL MTDD
== END 2016-11-12 15:25 | DRG 190 ==
LOC: KA.ED 09:54 → KA.MS 11:24
PROVIDERS: ADMIT Physician Assistant Medical; ATTEND Family Medicine
DX: J44.0 Chronic obstructive pulmonary disease with (acute) lower respiratory infection (principal); J18.1 Lobar pneumonia, unspecified organism; Z99.81 Dependence on supplemental oxygen; I13.0 Hypertensive heart and chronic kidney disease with heart failure and stage 1 through stage 4 chronic kidney disease, or unspecified chronic kidney disease; J44.1 Chronic obstructive pulmonary disease with (acute) exacerbation; R09.02 Hypoxemia; Z79.01 Long term (current) use of anticoagulants; N18.9 Chronic kidney disease, unspecified; M54.9 Dorsalgia, unspecified; G89.29 Other chronic pain; E03.9 Hypothyroidism, unspecified; I50.9 Heart failure, unspecified; K21.9 Gastro-esophageal reflux disease without esophagitis; I48.2 Chronic atrial fibrillation; Z79.52 Long term (current) use of systemic steroids; S81.811A Laceration without foreign body, right lower leg, initial encounter
CPT/HCPCS: 36415; 36600; 71020; 80048; 80053; 80202; 81001; 82550; 82553; 82803; 82962; 83880; 84484; 85025; 85610; 87040; 87086; 87088; 87186; 93005; 94640; 99285; A9270-GY; J1940; J1956; J2930; J3370; J7050; J7620-GY

== ENCOUNTER 2017-01-16 13:19 | Inpatient (IN) | payer MEDICARE, BC ==
--- NOTE | 2017-01-16 13:26 | EDM.PDOC ---
ED HPI GENERAL MEDICAL PROBLEM - General Chief Complaint: Respiratory Problem Stated Complaint: AUDIBLE WHEEZING,SOB Time Seen by Provider: 01/16/17 13:22 Source of Information: Reports: Patient History Limitations: Reports: No Limitations - History of Present Illness INITIAL COMMENTS - FREE TEXT/NARRATIVE: 81 YO WF with PMH of COPD and recurrent pneumonia presents to ER complaining of shortness of breath and nonproductive cough x 1 week. Pt reports she used her nebulizer today but only got minimal improvement prompting ER evaluation. Pt denies fever/chills, denies chest pain or nausea/vomiting. 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 Treatments - Related Data Allergies Allergy/AdvReac Type Severity Reaction Status Date / Time penicillamine Allergy Severe Anaphylactic Verified 01/16/17 14:25 Shock Penicillins Allergy Severe Anaphylactic Verified 01/16/17 14:25 Shock Cephalosporins Allergy Unknown Cannot Verified 01/16/17 14:25 Remember aspirin Allergy Other Verified 01/16/17 14:25 Carbapenems Allergy Cannot Verified 01/16/17 14:25 Remember divalproex sodium Allergy Delusions Verified 01/16/17 14:25 [From Depakote] contrast Allergy Unknown Chest Pain Uncoded 11/13/16 07:43 Home Meds: Home Meds Cholecalciferol (Vitamin D3) [Vitamin D3] 1,000 unit PO DAILY@0800 09/27/13 [ History] Levothyroxine [Synthroid] 88 mcg PO DAILY@0600 09/27/13 [History] Lutein/Minerals/Vit A,C & E [I-Silvina] 1 cap PO DAILY@0800 06/24/14 [History] Pravastatin [Pravachol] 40 mg PO BEDTIME 06/24/14 [History] Polyethylene Glycol 3350 [MiraLAX] 17 gm PO Q48H PRN 08/24/14 [History] Albuterol Sulfate [Albuterol Sulfate HFA] 2 puff INH Q4HR PRN 08/28/14 [History] Omeprazole [Prilosec] 40 mg PO DAILY@199901/20/15 [History] glipiZIDE [Glipizide Xl] 2.5 mg PO BRK 01/20/15 [History] Ferrous Sulfate 325 mg PO DAILY@1800 04/12/15 [History] Venlafaxine [Effexor XR] 150 mg PO DAILY 04/12/15 [History] Docusate Sodium [Colace] 100 mg PO BID 06/27/15 [History] Albuterol [Proventil Neb Soln] 2.5 mg NEB QID 02/25/16 [History] Potassium Chloride [K-Tab ER] 10 meq PO DAILY 02/25/16 [History] Warfarin [Coumadin] 2.5 mg PO MOFR@18 02/25/16 [History] Warfarin [Coumadin] 5 mg PO SUTUWETHSA@18 05/11/16 [History] Bumetanide [Bumex] 0.5 mg PO BID 06/19/16 [History] Dapsone 100 mg PO DAILY 06/19/16 [History] Lisinopril [Prinivil] 5 mg PO DAILY 06/19/16 [History] Acetaminophen/HYDROcodone [[place] 325-5 MG] 1 - 2 tab PO Q6H PRN 07/15/16 [ History] predniSONE [Prednisone] 5 mg PO DAILY@199907/17/16 [History] predniSONE [Prednisone] 10 mg PO WITHBREAKFAST 07/17/16 [History] Calcium Phosphate Trib/Vit D3 [Citracal + D3 Gummies] 2 tab PO QAM 11/08/16 [ History] Metoprolol Tartrate 25 mg PO BID 11/08/16 [History] Menthol [Biofreeze] 1 applic TOP BID PRN 11/10/16 [History] Ondansetron HCl [Zofran] 4 mg PO Q4H PRN 11/10/16 [History] Sotalol HCl [Sotalol] 120 mg PO DAILY #30 tablet 11/12/16 [Rx] Levofloxacin 750 mg PO Q48H #4 tablet 11/13/16 [Rx] Past Medical History HEENT History: Reports: Hard of Hearing, Impaired Vision Cardiovascular History: Reports: Afib, Heart Failure, Heart Valve Replacement, High Cholesterol, Hypertension, [place], SOB on Exertion, Other (See Below) Other Cardiovascular History: mitral stenosis,aortic stenosis,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,vasculitis Respiratory History: Reports: COPD, SOB Other Respiratory History: pleural effusions Gastrointestinal History: Reports: Bowel Obstruction, Diverticulosis, GERD Genitourinary History: Reports: Chronic Renal Insuffiency, Renal Disease, Other (See Below) Other Genitourinary History: acquired cyst of kidney BIZTALK ARCHITECT History: Reports: None Other OB/BYN History: 6 daughters, live term births Musculoskeletal History: Reports: Arthritis, Back Pain, Chronic, Osteoporosis, Other (See Below) Other Musculoskeletal History: compression fracture of thoracolumbar vertebra Neurological History: Reports: Migraines, Other (See Below) Other Neuro History: new onset confusion starting 06/18/2016 Psychiatric History: Reports: Depression Endocrine/Metabolic History: Reports: Diabetes, Type II, Hypothyroidism, Osteoporosis Hematologic History: Reports: Anemia, Blood Transfusion(s) Immunologic History: Reports: Other (See Below) Other Immunologic History: chronic steroid use Oncologic (Cancer) History: Reports: Breast, Colon Dermatologic History: Reports: Venous Stasis Dermatitis - Infectious Disease History Infectious Disease History: Reports: Chicken Pox, Measles, Rheumatic Fever - Past Surgical History HEENT Surgical History: Reports: Cataract Surgery Cardiovascular Surgical History: Reports: Valve Replacement Neurological Surgical History: Reports: Other (See Below) Musculoskeletal Surgical History: Reports: Other (See Below) Oncologic Surgical History: Reports: Mastectomy, Other (See Below) Social & Family History - Family History Family Medical History: Noncontributory HEENT: Reports: None Cardiac: Reports: None Respiratory: Reports: None GI: Reports: None : Reports: None OBGYN: Reports: None Musculoskeletal: Reports: None Neurological: Reports: None Psychiatric: Reports: None Endocrine/Metabolic: Reports: None Hematologic: Reports: None Immunologic: Reports: None Dermatologic: Reports: None Oncologic: Reports: Other (See Below) Other Oncologic Family History: parents had ca - Tobacco Use Smoking Status *Q: Former Smoker Years of Tobacco use: 40 Packs/Tins Daily: 0.5 Used Tobacco, but Quit: Yes Month Tobacco Last Used: October Second Hand Smoke Exposure: No - Caffeine Use Caffeine Use: Reports: Coffee, Soda - Alcohol Use Days Per Week of Alcohol Use: 0 - Recreational Drug Use Recreational Drug Use: No Recreational Drug Last Use: Coffee 3 cups of coffee per day, very occasional soda - Living Situation & Occupation Living situation: Reports: Occupation: Retired ED ROS GENERAL - Review of Systems Review Of Systems: See Below Constitutional: Reports: No Symptoms HEENT: Reports: No Symptoms Respiratory: Reports: Shortness of Breath, Wheezing, Cough Cardiovascular: Reports: No Symptoms Endocrine: Reports: No Symptoms GI/Abdominal: Reports: No Symptoms : Reports: No Symptoms Musculoskeletal: Reports: No Symptoms Skin: Reports: No Symptoms Neurological: Reports: No Symptoms Psychiatric: Reports: No Symptoms Hematologic/Lymphatic: Reports: No Symptoms Immunologic: Reports: No Symptoms ED EXAM, GENERAL - Physical Exam Exam: See Below Exam Limited By: No Limitations General Appearance: Alert, WD/WN, No Apparent Distress Nose: Normal Inspection, Normal Mucosa, No Blood Throat/Mouth: Normal Inspection, Normal Lips, Normal Teeth, Normal Gums, Normal Oropharynx, Normal Voice, No Airway Compromise Head: Atraumatic, Normocephalic Neck: Normal Inspection, Supple, Non-Tender, Full Range of Motion Respiratory/Chest: No Respiratory Distress, No Accessory Muscle Use, Chest Non- Tender, Decreased Breath Sounds, Wheezing. No: Stridor Cardiovascular: Normal Peripheral Pulses, Regular Rate, Rhythm, No Edema, No Gallop, No JVD, No Murmur, No Rub GI/Abdominal: Normal Bowel Sounds, Soft, Non-Tender, No Organomegaly, No Distention, No Abnormal Bruit, No Mass Back Exam: Normal Inspection, Full Range of Motion, NT Extremities: Normal Inspection, Normal Range of Motion, Non-Tender, Normal Capillary Refill, No Pedal Edema Neurological: Alert, Oriented, CN II-XII Intact, Normal Cognition, Normal Gait, Normal Reflexes, No Motor/Sensory Deficits Psychiatric: Normal Affect, Normal Mood Skin Exam: Warm, Dry, Intact, Normal Color, No Rash Lymphatic: No Adenopathy EKG INTERPRETATION EKG Date: 01/16/17 Time: 14:03 Rhythm: NSR Rate (Beats/Min): 59 [place]: LAD-Left [place] Deviation P-Wave: Present QRS: RBBB ST-T: Normal QT: Normal Comparison: NA - No Prior EKG Course - Vital Signs Last Recorded V/S: Last Vital Signs Temp 37.6 C 01/16/17 13:37 Pulse 67 01/16/17 13:37 Resp 20 01/16/17 13:37 BP 163/60 H 01/16/17 13:37 Pulse Ox 91 L 01/16/17 13:45 - Orders/Labs/Meds Orders: Active Orders 24 hr Category Date Time Status EKG Documentation Completion [RC] ASDIRECTED Care 01/16/17 13:28 Ordered Peripheral IV Care [RC] . DIRECTED Care 01/16/17 13:28 Ordered RT Aerosol Therapy [RC] ASDIRECTED Care 01/16/17 13:28 Ordered Chest 1V Frontal [CR] Stat Exams 01/16/17 13:28 Ordered Sodium Chloride 0.9% [Syrex Flush] Med 01/16/17 13:28 Ordered 5 ml FLUSH Q8HR PRN Peripheral IV Insertion Adult [OM.PC] Routine Oth 01/16/17 13:28 Ordered EKG 12 Lead [EK] Routine Ther 01/16/17 13:28 Ordered Medication Orders Sodium Chloride (Syrex Flush) 5 ml FLUSH Q8HR PRN PRN Reason: Keep Vein Open Last Admin: 01/16/17 14:23 Dose: 5 ml Labs: Laboratory Tests 01/16/17 01/16/17 01/16/17 Range/Units 13:40 13:40 13:40 WBC 11.2 H (5.0-10.0) 10^3/uL RBC 3.13 L (3.80-5.50) 10^6/uL Hgb 11.0 L (12.0-16.0) g/dL Hct 33.0 L (37.0-47.0) % MCV 105.5 H (82.0-92.0) fL MCH 35.3 H (27.0-31.0) pg MCHC 33.4 (32.0-36.0) g/dL RDW 13.9 (11.5-14.5) % Plt Count 124 L (150-300) 10^3/uL MPV 9.3 (7.4-10.4) fL Neut % (Auto) 86.3 H (50.0-70.0) % Lymph % (Auto) 6.5 L (20.0-40.0) % Mobile % (Auto) 6.1 (2.0-8.0) % Eos % (Auto) 0.4 L (1.0-3.0) % Baso % (Auto) 0.7 (0.0-1.0) % Neut # (Auto) 9.7 H (2.5-7.0) 10^3/uL Lymph # (Auto) 0.7 L (1.0-4.0) 10^3/uL Mobile # (Auto) 0.7 (0.1-0.8) 10^3/uL Eos # (Auto) 0.0 L (0.1-0.3) 10^3/uL Baso # (Auto) 0.1 (0.0-0.1) 10^3/uL PT 27.8 H (8.9-11.4) SEC INR 2.6 H (0.9-1.1) APTT 34.7 H (20.8-31.2) SEC Sodium 142 (136-145) mmol/L Potassium 4.0 (3.3-5.3) mmol/L Chloride 104 (98-115) mmol/L Carbon Dioxide 32.0 (21.0-32.0) mmol/L BUN 26 H (6-25) mg/dL Creatinine 0.92 (0.51-1.17) mg/dL Est Cr Clr Drug Dosing 35.62 mL/min Estimated GFR (MDRD) 59 mL/min Glucose 144 H (70-110) mg/dL Calcium 9.7 (8.7-10.3) mg/dL Total Bilirubin 1.0 (0.2-1.0) mg/dL AST 22 (15-37) U/L ALT 22 (12-78) U/L Alkaline Phosphatase 58 (46-116) IU/L Creatine Kinase 45 (26-276) U/L CK-MB (CK-2) 1.50 (0.00-4.30) ng/mL Troponin I 0.08 H* (0.00-0.070) ng/mL Total Protein 6.3 L (6.4-8.2) g/dL Albumin 3.77 (3.00-4.80) g/dL Meds: Medications Generic Name Dose Route Start Last Admin Trade Name Freq PRN Reason Stop Dose Admin Sodium Chloride 5 ml 01/16/17 13:28 01/16/17 14:23 Syrex Flush FLUSH 5 ml Q8HR PRN Administration Keep Vein Open Discontinued Medications Generic Name Dose Route Start Last Admin Trade Name Freq PRN Reason Stop Dose Admin Albuterol/Ipratropium 3 ml 01/16/17 13:28 01/16/17 13:30 Duoneb 3.0-0.5 Mg/3 Ml NEB 01/16/17 13:29 3 ml ONETIME ONE Administration - Radiology Interpretation Free Text/Narrative:: CXR- NAD Departure - Departure Time of Disposition: 14:47 Disposition: Admitted As Inpatient 68 Condition: Fair Clinical Impression: COPD with exacerbation, Elevated troponin I level - Discharge Information - My Orders Last 24 Hours: My Active Orders 01/16/17 13:28 EKG Documentation Completion [RC] ASDIRECTED Peripheral IV Care [RC] . DIRECTED RT Aerosol Therapy [RC] ASDIRECTED Chest 1V Frontal [CR] Stat Sodium Chloride 0.9% [Syrex Flush] 5 ml FLUSH Q8HR PRN Peripheral IV Insertion Adult [OM.PC] Routine EKG 12 Lead [EK] Routine - Assessment/Plan Last 24 Hours: My Active Orders 01/16/17 13:28 EKG Documentation Completion [RC] ASDIRECTED Peripheral IV Care [RC] . DIRECTED RT Aerosol Therapy [RC] ASDIRECTED Chest 1V Frontal [CR] Stat Sodium Chloride 0.9% [Syrex Flush] 5 ml FLUSH Q8HR PRN Peripheral IV Insertion Adult [OM.PC] Routine EKG 12 Lead [EK] Routine Assessment:: 1. COPD exacerbation 2. elevated trop I Plan: 1. admit to [facility] 2. duoneb tx Q4 and PRN 3. solumedrol 80mg IV Q8 4. oxygen- supportive care
[2017-01-16] MEDS ORDERED: Albuterol/Ipratropium 3.0-0.5 MG/3 ML Neb Soln NEB ONE (13:28)
[2017-01-16] MEDS: Sodium Chloride 0.9% 5 ML Syringe FLUSH PRN ×2 (14:23→15:17)
[2017-01-16] MEDS ORDERED: methylPREDNISolone Sodium Succinate 125 MG/2 ML SDV IVPUSH ONE (14:50)
[2017-01-16] MEDS ORDERED: Sodium Chloride 0.9% 5 ML Syringe FLUSH PRN (14:53)
[2017-01-16] MEDS ORDERED: Albuterol/Ipratropium 3.0-0.5 MG/3 ML Neb Soln NEB PRN ×2 (14:53→17:36)
[2017-01-16] MEDS ORDERED: Lidocaine 2% 100 MG/5 ML Syringe IVPUSH PRN (16:35)
[2017-01-16] MEDS ORDERED: EPINEPHrine 1:10,000 1 MG/10 ML Syringe IVPUSH PRN (16:35)
[2017-01-16] MEDS ORDERED: Nitroglycerin 0.4 MG Tab.SL SL PRN (16:35)
[2017-01-16] MEDS ORDERED: Atropine 0.1 MG/ML 10 ML Syringe IVPUSH PRN (16:35)
[2017-01-16] MEDS ORDERED: Acetaminophen/HYDROcodone 325-5 MG Tab PO PRN (17:13)
[2017-01-16] MEDS ORDERED: Albuterol HFA 18 Gm Inhaler INH PRN (17:13)
[2017-01-16] MEDS ORDERED: glipiZIDE 2.5 MG Tab.ER PO SCH (17:15)
[2017-01-16] MEDS ORDERED: Ondansetron 4 MG Tab.DIS PO PRN (17:30)
[2017-01-16] MEDS: guaiFENesin/Dextromethorphan 100-10 MG/5 ML Soln 5 ML Cup PO PRN (18:42)
[2017-01-16] MEDS: Bumetanide 1 MG Tab PO SCH (18:42)
[2017-01-16] MEDS: Warfarin 5 MG Tab PO SCH (18:42)
[2017-01-16] MEDS ORDERED: predniSONE 5 MG Tab PO SCH (20:00)
[2017-01-16] MEDS: Omeprazole 20 MG Cap.CR PO SCH (20:29)
[2017-01-16] MEDS: Simvastatin 20 MG Tab PO SCH (20:30)
[2017-01-16] MEDS: Metoprolol Tartrate 25 MG Tab PO SCH (20:30)
[2017-01-16] MEDS: Docusate Sodium 100 MG Cap PO SCH (20:30)
[2017-01-16] MEDS ORDERED: Pravastatin 20 MG Tab PO SCH (21:00)
[2017-01-16] MEDS ORDERED: Albuterol 0.083% 2.5 MG/3 ML Neb Soln NEB SCH (22:00)
[2017-01-16] MEDS: Albuterol/Ipratropium 3.0-0.5 MG/3 ML Neb Soln NEB SCH (22:27)
[2017-01-17] MEDS: Albuterol/Ipratropium 3.0-0.5 MG/3 ML Neb Soln NEB SCH ×4 (05:54→22:56)
[2017-01-17] MEDS: Levothyroxine 88 MCG Tab PO SCH (06:05)
[2017-01-17] MEDS: guaiFENesin/Dextromethorphan 100-10 MG/5 ML Soln 5 ML Cup PO PRN ×3 (06:07→17:03)
[2017-01-17] MEDS ORDERED: predniSONE 5 MG Tab PO SCH (08:00)
[2017-01-17] MEDS: Polyethylene Glycol 3350 Powder 17 GM Packet PO SCH (08:52)
[2017-01-17] MEDS: Lisinopril 5 MG Tab PO SCH (08:53)
[2017-01-17] MEDS: Calcium Citrate/Vitamin D3 315 MG-250 Unit Tab PO SCH (08:53)
[2017-01-17] MEDS: Ferrous Sulfate 325 MG Tab PO SCH (08:53)
[2017-01-17] MEDS: Potassium Chloride 10 MEQ Tab.ER PO SCH (08:53)
[2017-01-17] MEDS: Lutein/Minerals/Vit A,C & E Tab PO SCH (08:54)
[2017-01-17] MEDS: Cholecalciferol (Vitamin D3) 1,000 Unit Tab PO SCH (08:54)
[2017-01-17] MEDS: Venlafaxine 150 MG Cap.ER PO SCH (08:54)
[2017-01-17] MEDS: Metoprolol Tartrate 25 MG Tab PO SCH ×2 (08:54→20:43)
[2017-01-17] MEDS: glipiZIDE 2.5 MG Tab.ER PO SCH (08:54)
[2017-01-17] MEDS: Docusate Sodium 100 MG Cap PO SCH ×2 (08:54→20:43)
[2017-01-17] MEDS: Bumetanide 1 MG Tab PO SCH ×2 (08:55→14:30)
[2017-01-17] MEDS: Sotalol 80 MG Tab PO SCH (08:56)
[2017-01-17] MEDS ORDERED: methylPREDNISolone Sodium Succinate 125 MG/2 ML SDV IVPUSH SCH (09:00)
[2017-01-17] MEDS ORDERED: Non-Formulary Medication 1 Each (Ondansetron 4 MG) PO PRN (10:45)
--- NOTE | 2017-01-17 14:52 | HP ---
CHIEF COMPLAINT: Shortness of breath with wheezing. HISTORY OF PRESENT ILLNESS: This is a 81-year-old female patient who was at home and was having trouble breathing. She was wheezy and short of breath and she had tried some breathing treatments at home that did not help. The patient was recently at [facility] last week for some treatment regarding brain MRI that she had to have. Her states that she did have a CT scan of the chest obtained down there at [facility] and he says they do not know the results. The patient denied any productive cough at home. She says she was coughing, but the cough was dry and she had no fever or chills. Basically, she was just having a hard time getting her air in and out. She was short of breath. PAST MEDICAL HISTORY: Severe COPD, congestive heart failure, iron deficiency, hypothyroidism, hypertension, GERD, hypokalemia, hyperlipidemia, depression, irregular heart beat, diabetes mellitus type 2. MEDICATIONS: Medications that the patient was taking at home: Prednisone 15 mg daily, glipizide 2.5 mg daily, Coumadin 5 mg on all days of the week except for Thursday, on Thursday she was taking 7.5 mg, Effexor extended release 150 mg daily, sotalol 120 mg daily, Pravachol 40 mg at bedtime, potassium chloride 10 mEq daily, MiraLAX 17 g daily, Zofran 4 mg p.o. as needed, omeprazole 40 mg daily, metoprolol tartrate 12.5 mg twice a day, multivitamin, lisinopril 5 mg daily, Synthroid 88 mcg daily, ferrous sulfate 325 mg daily, Colace 100 mg twice a day, dapsone 100 mg daily, vitamin D3 1000 units daily, Bumex 0.5 mg twice a day, albuterol nebulizer twice daily, and [place] 5/325 one tab every 6 hours as needed. ALLERGIES: Penicillin, cephalosporins, aspirin, carbapenems, Depakote, and IV contrast. SOCIAL/PERSONAL HISTORY: The patient is retired. She does live at home with her . She denies any alcohol or tobacco use. REVIEW OF SYSTEMS: CONSTITUTIONAL: No weight loss. No fever. No chills. No night sweats. Appetite is good. No fatigue. EYES: No recent visual changes. ENT: No sinus congestion or hoarseness. CARDIOVASCULAR: No chest pain or palpitations. RESPIRATORY: She complains of dry cough with shortness of breath and wheezing and trouble getting air in. GI: No vomiting, diarrhea or melena. : No dysuria or hematuria. MUSCULOSKELETAL: No new bone pain or joint swelling. INTEGUMENTARY: No rash or pruritus. NEUROLOGIC/PSYCHIATRIC: No recent headache or focal weakness. No depressive symptoms. ENDOCRINE: No heat or cold intolerances or polydipsia. HEMATOLOGIC/LYMPHATIC: No excessive bruising or lymph node swelling. ALLERGIC/IMMUNOLOGIC: No hives or recurrent infections. PHYSICAL EXAMINATION: GENERAL: This is an elderly white female, in no acute distress. VITAL SIGNS: Temperature is 97.3, pulse is 60, blood pressure is 138/75, respiratory rate is 24, oxygen saturations are 92% with 3 L nasal cannula. HEENT: Head is normocephalic. EOMs are intact. Pupils are equal, round, and reactive to light and accommodation. Bilateral tympanic membranes are intact. Nose is clear. No pharyngeal erythema noted. NECK: Supple. No JVD. Trachea midline. RESPIRATORY: Lung sounds, the patient is very wheezy. She has loud inspiratory and expiratory wheezes throughout all lung zaldivar. CARDIAC: Distant heart sounds. No murmurs identified. ABDOMEN: Soft, nontender, and nondistended. Bowel sounds are present x4. EXTREMITIES: Full range of motion. No joint effusions noted. NEUROLOGIC: Grossly intact. DIAGNOSTIC: The patient's lab work that was obtained today, which is 01/17/2017: CBC that was obtained this morning shows a white count slightly elevated at 11.1, hemoglobin 10.7, platelet count at 126. The patient's PT is 23.9, INR is 2.3. Chemistry panel is unremarkable except for BUN slightly elevated at 27. The patient's troponin on admission was slightly elevated at 0.08. Repeat troponin 6 hours later was within normal range at 0.07. The patient's troponin that was obtained this morning was 0.04. The patient's total protein is low at 6.0, albumin is normal range at 3.36. The patient's CK-MB that was performed at admission was also within normal range at 1.5. The patient had an EKG performed in the emergency room, which showed sinus bradycardia with sinus arrhythmia with right bundle-branch block at 59 beats per minute. The patient had a chest x-ray performed in the emergency room, the impression reads no acute findings per Radiology. IMPRESSION/PLAN: 1. Exacerbation of severe chronic obstructive pulmonary disease. Plan: The patient was given Solu-Medrol 125 mg IV push in the emergency room. We are going to give her Solu-Medrol 60 mg IV push every 8 hours. Continue with the dapsone 100 mg daily. She can have some Robitussin DM as needed for cough. We are going to have her do DuoNebs every 6 hours scheduled. Also we are going to give her some theophylline 250 mg IV piggyback for her wheezing. On exam, she is very wheezing. She is maintaining her oxygen saturation at this time. We will continue her with oxygen 3 L per nasal cannula at this time. Chest x-ray per Radiology was no acute findings. 2. Congestive heart failure with history of hypertension. Plan: Continue Bumex 0.5 mg twice daily along with lisinopril 5 mg daily. She also was taking metoprolol tartrate 12.5 mg twice a day. We will monitor blood pressures. 3. History of iron deficiency. Plan: Continue with ferrous sulfate 325 mg daily. 4. Hypothyroidism. Plan: Continue with levothyroxine 88 mcg daily. 5. Gastroesophageal reflux disease. Plan: Continue with omeprazole 40 mg daily. 6. Hyperlipidemia. Plan: Continue with Zocor 20 mg daily. 7. Sinus arrhythmia. Plan: Continue with Betapace 120 mg daily along with Coumadin as ordered before. INR today was 2.3. 8. Depression. Plan: Continue with Effexor extended release 150 mg daily. 9. Diabetes mellitus type 2. Plan: Continue with glipizide 2.5 mg daily. /[id number]/MODL
[2017-01-17] MEDS: methylPREDNISolone Sodium Succinate 125 MG/2 ML SDV IVPUSH SCH ×2 (16:56→23:00)
[2017-01-17] MEDS: Warfarin 5 MG Tab PO SCH (17:19)
[2017-01-17] MEDS: Simvastatin 20 MG Tab PO SCH (20:43)
[2017-01-17] MEDS: Omeprazole 20 MG Cap.CR PO SCH (20:43)
[2017-01-18] MEDS: Albuterol/Ipratropium 3.0-0.5 MG/3 ML Neb Soln NEB SCH ×5 (05:47→22:05)
[2017-01-18] MEDS: Levothyroxine 88 MCG Tab PO SCH (05:47)
[2017-01-18] MEDS: Docusate Sodium 100 MG Cap PO SCH ×2 (08:14→20:22)
[2017-01-18] MEDS: Ferrous Sulfate 325 MG Tab PO SCH (08:14)
[2017-01-18] MEDS: Cholecalciferol (Vitamin D3) 1,000 Unit Tab PO SCH (08:14)
[2017-01-18] MEDS: Potassium Chloride 10 MEQ Tab.ER PO SCH (08:15)
[2017-01-18] MEDS: Lutein/Minerals/Vit A,C & E Tab PO SCH (08:15)
[2017-01-18] MEDS: Lisinopril 5 MG Tab PO SCH (08:15)
[2017-01-18] MEDS: Polyethylene Glycol 3350 Powder 17 GM Packet PO SCH (08:15)
[2017-01-18] MEDS: Bumetanide 1 MG Tab PO SCH ×2 (08:15→13:25)
[2017-01-18] MEDS: Sotalol 80 MG Tab PO SCH (08:16)
[2017-01-18] MEDS: Metoprolol Tartrate 25 MG Tab PO SCH ×2 (08:17→20:23)
[2017-01-18] MEDS: Venlafaxine 150 MG Cap.ER PO SCH (08:17)
[2017-01-18] MEDS: Calcium Citrate/Vitamin D3 315 MG-250 Unit Tab PO SCH (08:17)
[2017-01-18] MEDS: glipiZIDE 2.5 MG Tab.ER PO SCH (08:18)
[2017-01-18] MEDS: methylPREDNISolone Sodium Succinate 125 MG/2 ML SDV IVPUSH SCH ×2 (08:19→20:23)
[2017-01-18] MEDS ORDERED: Furosemide 40 MG/4 ML VIAL IVPUSH SCH (09:00)
--- NOTE | 2017-01-18 12:48 | PN ---
01/18/2017 PATIENT NAME: ANNAMARIE HUTTON SUBJECTIVE: This is a 81-year-old female patient who was at home with long history of COPD. She is having some shortness of breath and cough and just could not get air in. She came to the emergency room for further evaluation and treatment. X-ray that was obtained showed no acute process. The patient is very wheezy. Today, now, she states that her breathing is better. She says she is still coughing. She says she feels like she is getting a chest cold because she does cough. She denies any productive cough, any fever or chills. She says her wheezing is better today. OBJECTIVE: VITAL SIGNS: Today, her weight is 127 pounds, temperature is 94.8, pulse is 71, blood pressure is 166/62, respiratory rate is 20, oxygen saturations 96% on 3L nasal cannula. GENERAL: This is an elderly white female, in no acute distress. HEART: Tones are distant with irregular heartbeat. LUNGS: Lung sounds have less wheezes than yesterday. She still has scattered wheezing, mostly expiratory wheezes. She does have some rhonchi scattered throughout all lung zaldivar. ABDOMEN: Soft, nontender, nondistended. Bowel sounds present. EXTREMITIES: She has very minimal pedal edema on exam. LAB WORK: The patient did not have any lab work drawn today. IMPRESSION AND PLAN: 1. Exacerbation of severe chronic obstructive pulmonary disease. Plan: We are going to slowly decrease the patient's Solu-Medrol down. We will decrease it to 60 mg every 12 hours. We will continue with the dapsone 100 mg daily. She also has some Robitussin DM as needed for cough. We will continue with DuoNebs every 6 hours. The patient did receive a one time dose piggyback of theophylline 250 mg yesterday. We will continue the patient on oxygen per nasal cannula to keep her oxygen saturation greater than 92%. The patient's chest x-ray that was obtained in the emergency room showed no acute processes per Radiology. She is slightly improved today. 2. Congestive heart failure with history of hypertension. Plan: BNP was 532. Continue with Bumex 0.5 mg twice a day along with lisinopril 5 mg daily. She did get a dose of 40 mg Lasix IV yesterday and today. We are going to decrease that down to 20 mg Lasix IV daily. Her weight is down 5 pounds since admission. We will continue patient on beta-yakov of 12.5 mg of metoprolol tartrate twice a day. We will continue to monitor blood pressures. 3. History of iron deficiency. Plan: Continue with ferrous sulfate 325 mg daily. 4. Hypothyroidism. Plan: Continue with levothyroxine 88 mcg daily. 5. Gastroesophageal reflux disease. Plan: Continue with omeprazole 40 mg daily. 6. Hyperlipidemia. Plan: Continue with Zocor 20 mg daily. 7. Sinus arrhythmia. Plan: Continue with Betapace 120 mg daily along with Coumadin as ordered. INR today was 2.3. 8. Depression. Plan: Continue with Effexor extended release 150 mg daily. 9. Diabetes mellitus type 2. Plan: Continue with glipizide 2.5 mg daily. 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 Plan: The patient seems to be stable at this time. Overall: Patient has both factors of exacerbation COPD and CHF contributing to her shortness of breath. /[id number]/MODL MTDD
[2017-01-18] MEDS: guaiFENesin/Dextromethorphan 100-10 MG/5 ML Soln 5 ML Cup PO PRN (15:20)
[2017-01-18] MEDS: Warfarin 5 MG Tab PO SCH (17:23)
[2017-01-18] MEDS: Omeprazole 20 MG Cap.CR PO SCH (20:22)
[2017-01-18] MEDS: Simvastatin 20 MG Tab PO SCH (20:23)
[2017-01-19] MEDS: Levothyroxine 88 MCG Tab PO SCH (06:00)
[2017-01-19] MEDS: Albuterol/Ipratropium 3.0-0.5 MG/3 ML Neb Soln NEB SCH ×4 (06:03→22:23)
[2017-01-19] MEDS: Docusate Sodium 100 MG Cap PO SCH ×2 (08:21→20:31)
[2017-01-19] MEDS: Ferrous Sulfate 325 MG Tab PO SCH (08:21)
[2017-01-19] MEDS: Cholecalciferol (Vitamin D3) 1,000 Unit Tab PO SCH (08:21)
[2017-01-19] MEDS: Venlafaxine 150 MG Cap.ER PO SCH (08:21)
[2017-01-19] MEDS: Lutein/Minerals/Vit A,C & E Tab PO SCH (08:21)
[2017-01-19] MEDS: Potassium Chloride 10 MEQ Tab.ER PO SCH (08:21)
[2017-01-19] MEDS: Metoprolol Tartrate 25 MG Tab PO SCH ×2 (08:22→20:31)
[2017-01-19] MEDS: Sotalol 80 MG Tab PO SCH (08:22)
[2017-01-19] MEDS: Lisinopril 5 MG Tab PO SCH (08:22)
[2017-01-19] MEDS: Bumetanide 1 MG Tab PO SCH ×2 (08:22→14:17)
[2017-01-19] MEDS: Polyethylene Glycol 3350 Powder 17 GM Packet PO SCH (08:24)
[2017-01-19] MEDS: Calcium Citrate/Vitamin D3 315 MG-250 Unit Tab PO SCH (08:24)
[2017-01-19] MEDS: glipiZIDE 2.5 MG Tab.ER PO SCH (08:24)
[2017-01-19] MEDS: Furosemide 40 MG/4 ML VIAL IVPUSH SCH (08:33)
[2017-01-19] MEDS: methylPREDNISolone Sodium Succinate 125 MG/2 ML SDV IVPUSH SCH ×2 (08:33→20:14)
[2017-01-19] MEDS: Arformoterol 15 MCG/2 ML Neb Soln NEB SCH ×2 (09:43→20:06)
[2017-01-19] MEDS: Tiotropium Inhaler 18 MCG Inhalation Powder Cap Kit of 5 INH SCH (09:53)
--- NOTE | 2017-01-19 11:35 | PN ---
01/19/2017 PATIENT NAME: ANNAMARIE HUTTON SUBJECTIVE: This is a 81-year-old patient with a long history of COPD that she was at home having some shortness of breath, cough. Cough was nonproductive. She had no fever or chills. She was just really feeling short of breath and could not get her air in, so she came to the emergency room for further evaluation and treatment. The patient stated she had tried some nebulizer treatments at home that really did help, so that she came to the emergency room. Chest x-ray that was obtained in emergency room showed no acute processes per Radiology. The patient was admitted with exacerbation of her COPD. The patient does live at the [facility] in [place]. She states that she is pretty much on oxygen all day long. She does take it off occasionally. Now today, the patient states that her breathing is much better. She said this is probably 70 to 80% better than it was when she originally came in. She says she is still coughing quite a bit. It is a dry cough. She says that her ribs and belly even still hurt a little bit or sore from all the coughing she has done. She says the cough is still dry. She says her gave her some cough drops that did help with cough. OBJECTIVE: VITAL SIGNS: Today, the patient's weight is 126 pounds, on admission was 132, temperature today is 97.6, pulse is 57, blood pressure is 136/66, respiratory rate is 20, oxygen saturations 92% on 2 L nasal cannula. GENERAL: This is an elderly white female, in no acute distress. RESPIRATORY: Lungs sounds still have some scattered rhonchi. Maybe some few scattered expiratory wheezes but much improved from previous assessment. CARDIOVASCULAR: Heart tones are irregular at times. ABDOMEN: Soft, nontender, nondistended. Bowel sounds present x4. EXTREMITIES: No significant pedal edema noted on exam. LABORATORY DATA: The patient's lab work that she did obtain today CBC shows a white count just slightly elevated, it has been very stable at 11.7, hemoglobin 10.4, platelet count at 134. The patient's INR yesterday was 2.3, we did not obtain today, has been stable. Chemistry panel today is unremarkable except for BUN just slightly elevated at 41, otherwise unremarkable. The patient's brain natriuretic peptide that we obtained on Thursday was elevated at 532. IMPRESSION AND PLAN: 1. Exacerbation of severe chronic obstructive pulmonary disease. Plan: We will continue to titrate the patient's IV Solu-Medrol down. She was on 60 mg IV push every 12 hours. We will decrease that today to 40 mg every 12 hours. We will continue with dapsone 100 mg daily. We will continue with Robitussin DM as needed for cough. We will continue with DuoNebs every six hours. The patient did receive a one time IV piggyback of theophylline 250 mg on Thursday. We will continue the patient on oxygen to keep her oxygen saturation greater than 92%. Chest x-ray that was obtained in the emergency room showed no acute processes per Radiology. I am going to start the patient on maintenance medications of Spiriva one inhalation daily along with Brovana nebulizer twice a day. The patient was taking 15 mg of prednisone daily prior to admission. Also, I am going to start the patient on Daliresp 500 mcg upon discharge when she goes back to the [facility] for better control of patient's severe chronic obstructive pulmonary disease. 2. Congestive heart failure with history of hypertension. Plan: The patient's brain natriuretic peptide yesterday was elevated at 532. We are going to continue the patient on Bumex 0.5 mg twice a day along with lisinopril 5 mg daily. The patient did get 40 mg of IV Lasix yesterday and Thursday. The patient's weight is down six pounds since admission. We will decrease the patient's IV Lasix to 20 mg IV daily. We will continue to monitor the patient's blood pressure. Also, continue the patient on her beta-yakov, metoprolol tartrate 12.5 mg twice daily. 3. History of iron deficiency. Plan: Continue the patient with ferrous sulfate 325 mg daily. 4. Hypothyroidism. Plan: Continue with levothyroxine 88 mcg daily. 5. Gastroesophageal reflux disease. Plan: Continue with omeprazole 40 mg daily. 6. Hyperlipidemia. Plan: Continue with Zocor 20 mg daily. 7. Sinus arrhythmias. Plan: Continue the patient with Betapace 120 mg daily along with Coumadin as ordered. INR has been stable, yesterday it was 2.3. 8. Depression. Plan: Continue with Effexor extended release 150 mg daily. 9. Diabetes mellitus type 2. Plan: Continue with glipizide 2.5 mg daily along with an ADA diet. 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 Plan: The patient seems to be stable at this time. Overall plan: Patient should be able to go back to [facility] tomorrow. Both, exacerbation of COPD and CHF are contributing factors to her shortness or breath and wheezing. On discharge will send patient home on a titrating dose of prednisone, Brovanna nebulizers and Spiriva inhaler for better control of COPD. /[id number]/MODL MTDD
[2017-01-19] MEDS: Warfarin 5 MG Tab PO SCH (17:21)
[2017-01-19] MEDS: Omeprazole 20 MG Cap.CR PO SCH (20:05)
[2017-01-19] MEDS: Simvastatin 20 MG Tab PO SCH (20:33)
[2017-01-20] MEDS: guaiFENesin/Dextromethorphan 100-10 MG/5 ML Soln 5 ML Cup PO PRN (02:19)
[2017-01-20] MEDS: Albuterol/Ipratropium 3.0-0.5 MG/3 ML Neb Soln NEB SCH (05:40)
[2017-01-20] MEDS: Levothyroxine 88 MCG Tab PO SCH (05:54)
[2017-01-20] MEDS: Arformoterol 15 MCG/2 ML Neb Soln NEB SCH (07:22)
[2017-01-20] MEDS: Ferrous Sulfate 325 MG Tab PO SCH (08:11)
[2017-01-20] MEDS: Bumetanide 1 MG Tab PO SCH (08:11)
[2017-01-20] MEDS: glipiZIDE 2.5 MG Tab.ER PO SCH (08:12)
[2017-01-20] MEDS: Cholecalciferol (Vitamin D3) 1,000 Unit Tab PO SCH (08:12)
[2017-01-20] MEDS: Lisinopril 5 MG Tab PO SCH (08:13)
[2017-01-20] MEDS: Calcium Citrate/Vitamin D3 315 MG-250 Unit Tab PO SCH (08:13)
[2017-01-20] MEDS: Lutein/Minerals/Vit A,C & E Tab PO SCH (08:14)
[2017-01-20] MEDS: methylPREDNISolone Sodium Succinate 125 MG/2 ML SDV IVPUSH SCH (08:14)
[2017-01-20] MEDS: Sotalol 80 MG Tab PO SCH (08:16)
[2017-01-20] MEDS: Docusate Sodium 100 MG Cap PO SCH (08:17)
[2017-01-20] MEDS: Venlafaxine 150 MG Cap.ER PO SCH (08:18)
[2017-01-20] MEDS: Potassium Chloride 10 MEQ Tab.ER PO SCH (08:19)
[2017-01-20] MEDS: Metoprolol Tartrate 25 MG Tab PO SCH (08:19)
[2017-01-20] MEDS: Polyethylene Glycol 3350 Powder 17 GM Packet PO SCH (08:21)
[2017-01-20] MEDS: Furosemide 40 MG/4 ML VIAL IVPUSH SCH (08:22)
[2017-01-20 08:27] VITALS: BP 173/76
[2017-01-20] MEDS: Tiotropium Inhaler 18 MCG Inhalation Powder Cap Kit of 5 INH SCH (08:53)
[2017-01-20] MEDS ORDERED: Warfarin 5 MG Tab PO SCH (18:00)
--- NOTE | 2017-01-21 08:08 | DISCH ---
FINAL DIAGNOSIS: Chronic obstructive pulmonary disease exacerbation, much improved; congestive heart failure, acute on chronic, clinically improved. Other chronic problems: History of iron deficiency, hypothyroidism, GERD, hyperlipidemia, depression, diabetes mellitus, Villar's disease. HISTORY: This 81-year-old female with a long history of COPD. She lives in long-term care [place]. She was having some more shortness of breath, cough which was nonproductive. Denies any fever or chills, just really short of breath. She takes oxygen at home. She is on no respiratory medications at home other than DuoNeb that she takes quite a bit. She has had tried some nebulizers at home; however, those DuoNebs did not really help, so she came to the ED. Chest x-ray in the ED did not show any acute process, so her basic admitting diagnosis and working diagnosis was COPD exacerbation. She did have some fluid weight gain of about 6 pounds that was noted on admission. She wears her oxygen almost all days, takes it off occasionally. HOSPITAL COURSE: Hospital course went well. She was started on Brovana. She was added an anticholinergic of Spiriva. Continue monitoring for her COPD exacerbation. This did seem to improve. She was given Lasix along with her Bumex. Increase in Lasix due to an elevated BNP and that seem to improve. She did lose some weight. Started breathing quite a bit better. She was given Solu- Medrol in the emergency room, 125 mg IV push that was titrated down. She will continue on titration down of her prednisone, hopefully we can get her down below 10 mg since we are starting Pulmicort nebs on discharge. She did have a slightly elevated troponin on admission at 0.08, most likely due to cardiac strain; however, 6 hours later, they were within normal limits. No ST elevation. The patient's CK-MB was performed and was normal range at 1.5. She had sinus kole with sinus arrhythmia and a right bundle branch block around 60 beats per minute in the ED. The patient lost a total of 7 pounds. Weight on discharge 125 pounds. LABORATORY DATA: White count 11.7, slightly up from admission of 11.2; neutrophils, however, decreased down to 83. She was on prednisone. She does have an elevated INR of 3.5. We will hold her Coumadin dose tonight. She will be managed by [facility]. Sodium 144, potassium 3.8, creatinine estimated drug dosing is 32, glucose 122, calcium 10.2. AST, ALT, alkaline phosphatase normal. Troponin now 0.04, peaked at 0.08. BNP 532. Vital signs on discharge, blood pressure 173/76, heart rate 72, O2 saturation 94%, this is on 2.5 L/minute. This will be titrated down. Her goal should be around 88-92% on oxygen. Microbiology report none. PHYSICAL EXAM ON DISCHARGE: VITAL SIGNS: Stable. Systolic blood pressure slightly elevated. She felt ready to go. LUNGS: Severely diminished; however, no audible wheezing. CV: Regular rate and rhythm. NEURO: She was lucid, alert and oriented, calm. No shortness of breath, and respiratory rate 22, and she was ready to be discharged. MEDICATION CHANGES/ADJUSTMENTS ON DISCHARGE: Include: 1. Daliresp 500 mcg p.o. daily (newly added). 2. Spiriva 18 mcg two puffs daily (newly added). 3. Brovana b.i.d. nebs (newly added). 4. Pulmicort neb b.i.d. (newly added, start January 23, after oral taper of prednisone). 5. Prednisone taper as scheduled. 6. The patient can continue all other home medications; however, DuoNeb should be as needed. DISPOSITION: The patient will be discharged from hospital to back to [facility]. She has an appointment with Dr. Karen Terry for followup. She is to monitor for any increase in shortness of breath or fever or worsening cough. MEDICAL DECISION MAKIN minutes was spent on this discharge planning process. /[id number]/MODL
== END 2017-01-20 10:50 | DRG 191 ==
LOC: KA.ED 13:19 → KA.MS 14:58
PROVIDERS: ADMIT Physician Assistant Medical; ATTEND Physician Assistant
DX: J44.1 Chronic obstructive pulmonary disease with (acute) exacerbation (principal); R79.89 Other specified abnormal findings of blood chemistry; I48.91 Unspecified atrial fibrillation; A50.02 Early congenital syphilitic osteochondropathy; E78.00 Pure hypercholesterolemia, unspecified; I13.0 Hypertensive heart and chronic kidney disease with heart failure and stage 1 through stage 4 chronic kidney disease, or unspecified chronic kidney disease; N18.9 Chronic kidney disease, unspecified; I50.9 Heart failure, unspecified; E61.1 Iron deficiency; E11.9 Type 2 diabetes mellitus without complications; I87.2 Venous insufficiency (chronic) (peripheral); E03.9 Hypothyroidism, unspecified; Z95.2 Presence of prosthetic heart valve; K21.9 Gastro-esophageal reflux disease without esophagitis; E78.5 Hyperlipidemia, unspecified; F32.9 Major depressive disorder, single episode, unspecified; Z87.891 Personal history of nicotine dependence; Z88.0 Allergy status to penicillin; Z88.8 Allergy status to other drugs, medicaments and biological substances; Z79.899 Other long term (current) drug therapy; Z79.01 Long term (current) use of anticoagulants
CPT/HCPCS: 36415; 36416; 71010; 80048; 80053; 82550; 82553; 83880; 84484; 85025; 85610; 85730; 93005; 94640; 96374; 99285; A9270-GY; J1940; J2930; J7050

== ENCOUNTER 2017-02-02 11:40 | Inpatient (IN) | payer MEDICARE, BC ==
[2017-02-02] MEDS ORDERED: Sodium Chloride 0.9% 5 ML Syringe FLUSH PRN ×2 (12:09→13:40)
--- NOTE | 2017-02-02 12:09 | EDM.PDOC ---
ED HPI GENERAL MEDICAL PROBLEM - General Chief Complaint: Back Pain or Injury Stated Complaint: low back pain Time Seen by Provider: 02/02/17 12:02 Source of Information: Reports: Patient, Family History Limitations: Reports: No Limitations - History of Present Illness INITIAL COMMENTS - FREE TEXT/NARRATIVE: 81 YO WF presents to ER from [facility] by private car. Pt had an episode of mild confusion last evening after baclofen was given for her chronic back pain. Baclofen was held this am due to event last evening and patient then developed severe back spasms. Pt was given her hydrocodone and sent to clinic. Once seen at clinic patient continued to complain of severe back spasms prompting ER evaluation. Pt was seen in ER and denies any back pain or back spasms currently. Patients daughter concerned she may be dehydrated. Pt denies any fever/chills, denies any nausea/vomiting, denies any dysuria, frequency or urgency. Onset: Today Onset Date: 02/02/17 Onset Time: 08:00 Location: Reports: Back Quality: Reports: Ache Severity: Moderate Improves with: Reports: None Worsens with: Reports: None Associated Symptoms: Reports: No Other Symptoms - Related Data Allergies Allergy/AdvReac Type Severity Reaction Status Date / Time penicillamine Allergy Severe Anaphylactic Verified 02/02/17 12:30 Shock Penicillins Allergy Severe Anaphylactic Verified 02/02/17 12:30 Shock Cephalosporins Allergy Unknown Cannot Verified 02/02/17 12:30 Remember aspirin Allergy Other Verified 02/02/17 12:30 Carbapenems Allergy Cannot Verified 02/02/17 12:30 Remember divalproex sodium Allergy Delusions Verified 02/02/17 12:30 [From Depakote] contrast Allergy Unknown Chest Pain Uncoded 02/02/17 12:31 Home Meds: Home Meds Cholecalciferol (Vitamin D3) [Vitamin D3] 1,000 unit PO DAILY@0800 09/27/13 [ History] Levothyroxine [Synthroid] 88 mcg PO DAILY@0600 09/27/13 [History] Lutein/Minerals/Vit A,C & E [I-Silvina] 1 cap PO DAILY@0800 06/24/14 [History] Pravastatin [Pravachol] 40 mg PO BEDTIME 06/24/14 [History] Polyethylene Glycol 3350 [MiraLAX] 17 gm PO DAILY 08/24/14 [History] Albuterol Sulfate [Albuterol Sulfate HFA] 2 puff INH Q4HR PRN 08/28/14 [History] Omeprazole [Prilosec] 40 mg PO DAILY@199901/20/15 [History] glipiZIDE [Glipizide Xl] 2.5 mg PO BRK 01/20/15 [History] Ferrous Sulfate 325 mg PO DAILY 04/12/15 [History] Venlafaxine [Effexor XR] 150 mg PO DAILY 04/12/15 [History] Docusate Sodium [Colace] 100 mg PO BID 06/27/15 [History] Albuterol [Proventil Neb Soln] 2.5 mg NEB QID PRN 02/25/16 [History] Potassium Chloride [K-Tab ER] 10 meq PO DAILY 02/25/16 [History] Warfarin [Coumadin] 5 mg PO SUMOWETHFRSA@18 05/11/16 [History] Dapsone 100 mg PO DAILY 06/19/16 [History] Lisinopril [Prinivil] 5 mg PO DAILY 06/19/16 [History] Acetaminophen/HYDROcodone [Shirley 325-5 MG] 1 - 2 tab PO Q6H PRN 07/15/16 [ History] predniSONE [Prednisone] 5 mg PO DAILY@1700 07/17/16 [History] predniSONE [Prednisone] 10 mg PO WITHBREAKFAST 07/17/16 [History] Calcium Phosphate Trib/Vit D3 [Citracal + D3 Gummies] 2 tab PO QAM 11/08/16 [ History] Metoprolol Tartrate 12.5 mg PO BID 11/08/16 [History] Sotalol HCl [Sotalol] 120 mg PO DAILY #30 tablet 11/12/16 [Rx] Bumetanide 0.5 mg PO BID@0800,1400 01/16/17 [History] Clindamycin HCl 600 mg PO DAILY PRN 01/16/17 [History] Ondansetron [Zofran] 4 mg PO Q4H PRN 01/16/17 [History] Warfarin [Coumadin] 7.5 mg PO TU@1800 01/16/17 [History] Arformoterol [Brovana] 15 mcg NEB BIDRT #60 neb 01/20/17 [Rx] Roflumilast [Daliresp] 500 mcg PO DAILY #30 tablet 01/20/17 [Rx] Tiotropium [Spiriva] 2 puff INH DAILY #1 kit 01/20/17 [Rx] Budesonide [Pulmicort] 0.25 mg INH BID #60 ml 01/23/17 [Rx] Past Medical History HEENT History: Reports: Hard of Hearing, Impaired Vision Cardiovascular History: Reports: Afib, Heart Failure, Heart Valve Replacement, High Cholesterol, Hypertension, [place], SOB on Exertion, Other (See Below) Other Cardiovascular History: mitral stenosis,aortic stenosis,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,vasculitis Respiratory History: Reports: COPD, SOB Other Respiratory History: pleural effusions Gastrointestinal History: Reports: Bowel Obstruction, Diverticulosis, GERD Genitourinary History: Reports: Chronic Renal Insuffiency, Renal Disease, Other (See Below) Other Genitourinary History: acquired cyst of kidney [employer] History: Reports: None Other OB/BYN History: 6 daughters, live term births Musculoskeletal History: Reports: Arthritis, Back Pain, Chronic, Osteoporosis, Other (See Below) Other Musculoskeletal History: compression fracture of thoracolumbar vertebra Neurological History: Reports: Migraines, Other (See Below) Other Neuro History: new onset confusion starting 06/18/2016 Psychiatric History: Reports: Depression Endocrine/Metabolic History: Reports: Diabetes, Type II, Hypothyroidism, Osteoporosis Hematologic History: Reports: Anemia, Blood Transfusion(s) Immunologic History: Reports: Other (See Below) Other Immunologic History: chronic steroid use Oncologic (Cancer) History: Reports: Breast, Colon Dermatologic History: Reports: Venous Stasis Dermatitis - Infectious Disease History Infectious Disease History: Reports: Chicken Pox, Measles, Rheumatic Fever - Past Surgical History Head Surgeries/Procedures: Reports: None HEENT Surgical History: Reports: Cataract Surgery Cardiovascular Surgical History: Reports: Valve Replacement Neurological Surgical History: Reports: Other (See Below) Musculoskeletal Surgical History: Reports: Other (See Below) Oncologic Surgical History: Reports: Mastectomy, Other (See Below) Social & Family History - Family History Family Medical History: Noncontributory HEENT: Reports: None Cardiac: Reports: None Respiratory: Reports: None GI: Reports: None : Reports: None OBGYN: Reports: None Musculoskeletal: Reports: None Neurological: Reports: None Psychiatric: Reports: None Endocrine/Metabolic: Reports: None Hematologic: Reports: None Immunologic: Reports: None Dermatologic: Reports: None Oncologic: Reports: Other (See Below) Other Oncologic Family History: parents had ca - Tobacco Use Smoking Status *Q: Former Smoker Years of Tobacco use: 40 Packs/Tins Daily: 0.5 Used Tobacco, but Quit: Yes Month Tobacco Last Used: dec Second Hand Smoke Exposure: No - Caffeine Use Caffeine Use: Reports: Coffee, Soda - Alcohol Use Days Per Week of Alcohol Use: 0 - Recreational Drug Use Recreational Drug Use: No Recreational Drug Last Use: Coffee 3 cups of coffee per day, very occasional soda - Living Situation & Occupation Living situation: Reports: Occupation: Retired ED ROS GENERAL - Review of Systems Review Of Systems: See Below Constitutional: Reports: No Symptoms HEENT: Reports: No Symptoms Respiratory: Reports: No Symptoms Cardiovascular: Reports: No Symptoms Endocrine: Reports: No Symptoms GI/Abdominal: Reports: No Symptoms : Reports: No Symptoms Musculoskeletal: Reports: Back Pain Skin: Reports: No Symptoms Neurological: Reports: No Symptoms Psychiatric: Reports: No Symptoms Hematologic/Lymphatic: Reports: No Symptoms Immunologic: Reports: No Symptoms ED EXAM,LOWER BACK PAIN/INJURY - Physical Exam Exam: See Below Exam Limited By: No Limitations General Appearance: Alert, WD/WN, No Apparent Distress Nose: Normal Inspection, Normal Mucosa, No Blood Throat/Mouth: Normal Inspection, Normal Lips, Normal Teeth, Normal Gums, Normal Oropharynx, Normal Voice, No Airway Compromise Head: Atraumatic, Normocephalic Neck: Normal Inspection, Supple, Non-Tender, Full Range of Motion Respiratory/Chest: No Respiratory Distress, Lungs Clear, Normal Breath Sounds, No Accessory Muscle Use, Chest Non-Tender Cardiovascular: Normal Peripheral Pulses, Regular Rate, Rhythm, No Edema, No Gallop, No JVD, No Murmur, No Rub GI/Abdominal: Normal Bowel Sounds, Soft, Non-Tender, No Organomegaly, No Distention, No Abnormal Bruit, No Mass Back Exam: Muscle Spasm, Paraspinal Tenderness Extremities: Normal Inspection, Normal Range of Motion, Non-Tender, No Pedal Edema, Normal Capillary Refill Neurological: Alert, Normal Mood/Affect, Normal Dorsiflexion, CN II-XII Intact, Normal Plantar Flexion, Normal Gait, Normal Reflexes, No Motor/Sensory Deficits , Oriented x 3 Psychiatric: Normal Affect, Normal Mood Skin Exam: Warm, Dry, Intact, Normal Color, No Rash Lymphatic: No Adenopathy Course - Vital Signs Last Recorded V/S: Last Vital Signs Temp 36.5 C 02/02/17 12:24 Pulse 64 02/02/17 12:24 Resp 18 02/02/17 12:24 BP 148/40 H 02/02/17 12:24 Pulse Ox 92 L 02/02/17 12:24 - Orders/Labs/Meds Orders: Active Orders 24 hr Category Date Time Status Peripheral IV Care [RC] . DIRECTED Care 02/02/17 12:10 Active Sodium Chloride 0.9% [Normal Saline] 500 ml Med 02/02/17 12:30 Active IV .BOLUS Sodium Chloride 0.9% [Syrex Flush] Med 02/02/17 12:09 Active 5 ml FLUSH Q8HR PRN Peripheral IV Insertion Adult [OM.PC] Routine Oth 02/02/17 12:09 Ordered Medication Orders Sodium Chloride (Normal Saline) 500 mls @ 500 mls/hr IV .BOLUS MARY ALICE Last Admin: 02/02/17 12:18 Dose: 500 mls/hr Sodium Chloride (Syrex Flush) 5 ml FLUSH Q8HR PRN PRN Reason: Keep Vein Open Last Admin: 02/02/17 12:21 Dose: 5 ml Labs: Laboratory Tests 02/02/17 02/02/17 02/02/17 Range/Units 12:05 12:05 12:55 WBC 15.3 H (5.0-10.0) 10^3/uL RBC 2.60 L (3.80-5.50) 10^6/uL Hgb 9.2 L (12.0-16.0) g/dL Hct 27.7 L (37.0-47.0) % MCV 106.3 H (82.0-92.0) fL MCH 35.3 H (27.0-31.0) pg MCHC 33.2 (32.0-36.0) g/dL RDW 14.5 (11.5-14.5) % Plt Count 189 (150-300) 10^3/uL MPV 9.8 (7.4-10.4) fL Neut % (Auto) 89.2 H (50.0-70.0) % Lymph % (Auto) 6.4 L (20.0-40.0) % [place] % (Auto) 3.5 (2.0-8.0) % Eos % (Auto) 0.4 L (1.0-3.0) % Baso % (Auto) 0.5 (0.0-1.0) % Neut # (Auto) 13.6 H (2.5-7.0) 10^3/uL Lymph # (Auto) 1.0 (1.0-4.0) 10^3/uL [place] # (Auto) 0.5 (0.1-0.8) 10^3/uL Eos # (Auto) 0.1 (0.1-0.3) 10^3/uL Baso # (Auto) 0.1 (0.0-0.1) 10^3/uL Sodium 150 H (136-145) mmol/L Potassium 4.0 (3.3-5.3) mmol/L Chloride 109 (98-115) mmol/L Carbon Dioxide 31.8 (21.0-32.0) mmol/L BUN 53 H* (6-25) mg/dL Creatinine 1.51 H (0.51-1.17) mg/dL Est Cr Clr Drug Dosing 21.70 mL/min Estimated GFR (MDRD) 33 mL/min Glucose 102 (70-110) mg/dL Calcium 10.3 (8.7-10.3) mg/dL Specimen Type Urinqcath Urine Color Yellow (YELLOW) Urine Appearance Slightly cloudy H (CLEAR) Urine pH 5.5 (5.0-9.0) Ur Specific [place] 1.020 (1.005-1.030) Urine Protein Negative (NEGATIVE) mg/dL Urine Glucose (UA) Negative (NEGATIVE) mg/dL Urine Ketones Negative (NEGATIVE) mg/dL Urine Occult Blood Trace-intact H (NEGATIVE) Urine Nitrite Negative (NEGATIVE) Urine Bilirubin Small H (NEGATIVE) Urine Urobilinogen 0.2 (0.2-1.0) E.U./dL Ur Leukocyte Esterase Trace H (NEGATIVE) Urine RBC 5-10 H /HPF Urine WBC 0-5 /HPF Ur Epithelial Cells Few /LPF Urine Bacteria Many H (NONE TO FEW) /HPF Meds: Medications Generic Name Dose Route Start Last Admin Trade Name Freq PRN Reason Stop Dose Admin Sodium Chloride 500 mls @ 500 mls/hr 02/02/17 12:30 02/02/17 12:18 Normal Saline IV 500 mls/hr .BOLUS MARY ALICE Administration Sodium Chloride 5 ml 02/02/17 12:09 02/02/17 12:21 Syrex Flush FLUSH 5 ml Q8HR PRN Administration Keep Vein Open Discontinued Medications Generic Name Dose Route Start Last Admin Trade Name Kraigq PRN Reason Stop Dose Admin Sodium Chloride 500 mls @ 500 drops/hr 02/02/17 12:15 Normal Saline IV .BOLUS MARY ALICE Departure - Departure Time of Disposition: 13:37 Disposition: Admitted As Inpatient 68 Condition: Fair Clinical Impression: Hypernatremia, Dehydration Urinary tract infection Qualifiers: Urinary tract infection type: acute cystitis Hematuria presence: without hematuria Qualified Code(s): N30.00 - Acute cystitis without hematuria - Discharge Information - My Orders Last 24 Hours: My Active Orders 02/02/17 12:09 Sodium Chloride 0.9% [Syrex Flush] 5 ml FLUSH Q8HR PRN Peripheral IV Insertion Adult [OM.PC] Routine 02/02/17 12:10 Peripheral IV Care [RC] . DIRECTED 02/02/17 12:30 Sodium Chloride 0.9% [Normal Saline] 500 ml IV .BOLUS - Assessment/Plan Last 24 Hours: My Active Orders 02/02/17 12:09 Sodium Chloride 0.9% [Syrex Flush] 5 ml FLUSH Q8HR PRN Peripheral IV Insertion Adult [OM.PC] Routine 02/02/17 12:10 Peripheral IV Care [RC] . DIRECTED 02/02/17 12:30 Sodium Chloride 0.9% [Normal Saline] 500 ml IV .BOLUS Assessment:: 1. mild confusion 2. UTI 3. Hypernatremia 4. dehydration Plan: 1. Admit for further evaluation and treatment to [facility] 2. rocephin 1g IV QD 3. NS @125cc/hr 4. repeat labs in am 5. urine culture
[2017-02-02] MEDS ORDERED: Sodium Chloride 0.9% 500 ML IV SCH ×2 (12:15→12:30)
[2017-02-02] MEDS ORDERED: Sodium Chloride 0.9% 1,000 ML IV SCH ×2 (13:45→18:45)
[2017-02-02] MEDS: cefTRIAXone 1 GM Vial IVPUSH SCH (15:27)
[2017-02-02] MEDS ORDERED: Albuterol HFA 18 Gm Inhaler INH PRN (18:15)
[2017-02-02] MEDS ORDERED: Albuterol 0.083% 2.5 MG/3 ML Neb Soln NEB PRN (18:15)
--- NOTE | 2017-02-02 18:15 | PCM.HP ---
H&P History of Present Illness - General Date of Service: 02/02/17 Source of Information: Patient, Old Records, Provider, RN History Limitations: Reports: Altered Mental Status (Mild confusion, answers questions appropriately) - History of Present Illness Initial Comments - Free Text/Narative: This is a 81 year old female who presented to the ER due to severe back pain and spasms. The patient resides at a local [place] [facility] facility and it had been reported that she was somewhat lethargic last evening so her morning dose of baclofen was held. She then proceeded to have back spasms this morning. There was mild confusion noted as well. She had a workup in the ER which revealed a WBC of 15.3 with a left shift and a UA positive for many bacteria. She was also noted to be dehydrated with a BUN of 50 and creatinine of 1.50. She was admitted for IV fluids and antibiotics. The patient has an extensive past medical history (see assessment & plan at end of note). - Related Data Allergies/Adverse Reactions: Allergies Allergy/AdvReac Type Severity Reaction Status Date / Time penicillamine Allergy Severe Anaphylactic Verified 02/02/17 14:54 Shock Penicillins Allergy Severe Anaphylactic Verified 02/02/17 14:54 Shock Cephalosporins Allergy Unknown Cannot Verified 02/02/17 14:54 Remember aspirin Allergy Other Verified 02/02/17 14:54 Carbapenems Allergy Cannot Verified 02/02/17 14:54 Remember divalproex sodium Allergy Delusions Verified 02/02/17 14:54 [From Depakote] contrast Allergy Unknown Chest Pain Uncoded 02/02/17 14:54 Home Medications: Home Meds Cholecalciferol (Vitamin D3) [Vitamin D3] 1,000 unit PO DAILY@0800 09/27/13 [ History] Levothyroxine [Synthroid] 88 mcg PO DAILY@0600 09/27/13 [History] Lutein/Minerals/Vit A,C & E [I-Silvina] 1 cap PO DAILY@0800 06/24/14 [History] Pravastatin [Pravachol] 40 mg PO BEDTIME 06/24/14 [History] Polyethylene Glycol 3350 [MiraLAX] 17 gm PO DAILY 08/24/14 [History] Albuterol Sulfate [Albuterol Sulfate HFA] 2 puff INH Q4HR PRN 08/28/14 [History] Omeprazole [Prilosec] 40 mg PO DAILY@199901/20/15 [History] glipiZIDE [Glipizide Xl] 2.5 mg PO BRK 01/20/15 [History] Ferrous Sulfate 325 mg PO DAILY 04/12/15 [History] Venlafaxine [Effexor XR] 150 mg PO DAILY 04/12/15 [History] Docusate Sodium [Colace] 100 mg PO BID 06/27/15 [History] Albuterol [Proventil Neb Soln] 2.5 mg NEB QID PRN 02/25/16 [History] Potassium Chloride [K-Tab ER] 10 meq PO DAILY 02/25/16 [History] Warfarin [Coumadin] 5 mg PO SUMOWETHFRSA@18 05/11/16 [History] Dapsone 100 mg PO DAILY 06/19/16 [History] Lisinopril [Prinivil] 5 mg PO DAILY 06/19/16 [History] Acetaminophen/HYDROcodone [[place] 325-5 MG] 1 - 2 tab PO Q6H PRN 07/15/16 [ History] predniSONE [Prednisone] 5 mg PO DAILY@1700 07/17/16 [History] predniSONE [Prednisone] 10 mg PO WITHBREAKFAST 07/17/16 [History] Calcium Phosphate Trib/Vit D3 [Citracal + D3 Gummies] 2 tab PO QAM 11/08/16 [ History] Metoprolol Tartrate 12.5 mg PO BID 11/08/16 [History] Sotalol HCl [Sotalol] 120 mg PO DAILY #30 tablet 11/12/16 [Rx] Bumetanide 0.5 mg PO BID@0800,1400 01/16/17 [History] Clindamycin HCl 600 mg PO DAILY PRN 01/16/17 [History] Ondansetron [Zofran] 4 mg PO Q4H PRN 01/16/17 [History] Warfarin [Coumadin] 7.5 mg PO TU@1800 01/16/17 [History] Arformoterol [Brovana] 15 mcg NEB BIDRT #60 neb 01/20/17 [Rx] Roflumilast [Daliresp] 500 mcg PO DAILY #30 tablet 01/20/17 [Rx] Tiotropium [Spiriva] 2 puff INH DAILY #1 kit 01/20/17 [Rx] Budesonide [Pulmicort] 0.25 mg INH BID #60 ml 01/23/17 [Rx] Past Medical History HEENT History: Reports: Hard of Hearing, Impaired Vision Cardiovascular History: Reports: Afib, Heart Failure, Heart Valve Replacement, High Cholesterol, Hypertension, [place], SOB on Exertion, Other (See Below) Other Cardiovascular History: mitral stenosis,aortic stenosis,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,vasculitis Respiratory History: Reports: COPD, Pneumonia, Recurrent, SOB Other Respiratory History: pleural effusions Gastrointestinal History: Reports: Bowel Obstruction, Diverticulosis, GERD Genitourinary History: Reports: Chronic Renal Insuffiency, Renal Disease, Other (See Below) Other Genitourinary History: acquired cyst of kidney [employer] 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: Reports: None, Other OB/BYN History: 6 daughters, live term births Musculoskeletal History: Reports: Arthritis, Back Pain, Chronic, Osteoporosis, Other (See Below) Other Musculoskeletal History: compression fracture of thoracolumbar vertebra Neurological History: Reports: Migraines, Other (See Below) Other Neuro History: new onset confusion starting 06/18/2016 Psychiatric History: Reports: Depression Endocrine/Metabolic History: Reports: Diabetes, Type II, Hypothyroidism, Osteoporosis Hematologic History: Reports: Anemia, Blood Transfusion(s) Immunologic History: Reports: Other (See Below) Other Immunologic History: chronic steroid use Oncologic (Cancer) History: Reports: Breast, Colon Dermatologic History: Reports: Venous Stasis Dermatitis - Infectious Disease History Infectious Disease History: Reports: Chicken Pox, Measles, Rheumatic Fever - Past Surgical History Head Surgeries/Procedures: Reports: None HEENT Surgical History: Reports: Cataract Surgery Cardiovascular Surgical History: Reports: Valve Replacement GI Surgical History: Reports: Colostomy Neurological Surgical History: Reports: Other (See Below) Musculoskeletal Surgical History: Reports: Other (See Below) Oncologic Surgical History: Reports: Mastectomy, Other (See Below) Social & Family History - Family History Family Medical History: Noncontributory HEENT: Reports: None Cardiac: Reports: None Respiratory: Reports: None GI: Reports: None : Reports: None OBGYN: Reports: None Musculoskeletal: Reports: None Neurological: Reports: None Psychiatric: Reports: None Endocrine/Metabolic: Reports: None Hematologic: Reports: None Immunologic: Reports: None Dermatologic: Reports: None Oncologic: Reports: Other (See Below) Other Oncologic Family History: parents had ca - Tobacco Use Smoking Status *Q: Former Smoker Years of Tobacco use: 40 Packs/Tins Daily: 0.5 Used Tobacco, but Quit: Yes Month Tobacco Last Used: dec Second Hand Smoke Exposure: No - Caffeine Use Caffeine Use: Reports: Coffee, Soda - Alcohol Use Days Per Week of Alcohol Use: 0 - Recreational Drug Use Recreational Drug Use: No Recreational Drug Last Use: Coffee 3 cups of coffee per day, very occasional soda - Living Situation & Occupation Living situation: Reports: Occupation: Retired H&P Review of Systems - Review of Systems: Review Of Systems: See Below General: Reports: Weakness, Fatigue. Denies: Fever, Decreased Appetite HEENT: Reports: Glasses. Denies: Ear Pain, Headaches, Sinus Congestion, Sore Throat Pulmonary: Reports: Cough. Denies: Shortness of Breath Cardiovascular: Denies: Chest Pain, Edema Gastrointestinal: Reports: Black Stool (on iron). Denies: Abdominal Pain, Constipation, Diarrhea, Decreased Appetite, Nausea, Vomiting Genitourinary: Denies: Dysuria, Frequency Musculoskeletal: Reports: Back Pain (left-sided thoracic back pain), Muscle Pain Skin: Reports: Bruising Psychiatric: Reports: Confusion. Denies: Anxiety Neurological: Reports: Confusion. Denies: Dizziness, Headache, Numbness Exam - Exam Exam: See Below - Vital Signs Vital Signs: Last Vital Signs Temp 97.2 F 02/02/17 13:40 Pulse 56 L 02/02/17 13:40 Resp 16 02/02/17 13:40 BP 160/65 H 02/02/17 13:40 Pulse Ox 96 02/02/17 13:40 Weight: 130 lb - Exam Quality Assessment: Supplemental Oxygen (3 liters per nasal cannula), DVT Prophylaxis (on warfarin, however on hold due to INR of 5.7. ) General: Alert, Oriented (to self and time, not place), Cooperative, Mild Distress HEENT: Conjunctiva Clear, Posterior Pharynx Clear, Pupils Equal, TMs Clear, Glasses. No: Mucosa Moist & [place] (Dry and pink) Neck: Supple, Trachea Midline. No: Lymphadenopathy Lungs: Normal Respiratory Effort, Decreased Breath Sounds (throughout), Other ( coarse sounds to lower lobes bilaterally) Cardiovascular: Regular Rate, Regular Rhythm, Normal S1, Normal S2, Other ( murmur) GI/Abdominal Exam: Normal Bowel Sounds, Soft, Non-Tender, No Distention, Other ( colostomy in place to left side of abdomen with dark black liquid-like stool) Back Exam: Muscle Spasm (left-thoracic back). No: CVA Tenderness (L), CVA Tenderness (R), Paraspinal Tenderness, Vertebral Tenderness Extremities: No Pedal Edema Skin: Warm, Dry, Ecchymosis (scattered areas) Neuro Extensive - Mental Status: Alert. No: Oriented x3 (oriented to self and time) Psychiatric: Alert, Normal Affect, Normal Mood. No: Anxious - Patient Data Result Diagrams: 02/02/17 12:05 02/02/17 12:05 *Q Meaningful Use (ADM) - VTE *Q VTE Criteria *Q: - Stroke *Q Stroke Criteria *Q: - AMI *Q AMI Criteria *Q: Problem List Initiated/Reviewed/Updated: Yes Orders Last 24hrs: Active Orders 24 hr Category Date Time Status Daily Weight [Height and Weight] [RC] DAILY Care 02/02/17 17:48 Active Intake and Output Strict [] ASDIRECTED Care 02/02/17 17:48 Active cefTRIAXone [Rocephin] Med 02/02/17 13:45 Active 1 gm IVPUSH Q24H Medication Orders Ceftriaxone Sodium (Rocephin) 1 gm IVPUSH Q24H [facility] Last Admin: 02/02/17 15:27 Dose: 1 gm Sodium Chloride (Normal Saline) 1,000 mls @ 125 mls/hr IV ASDIRECTED [facility] Last Admin: 02/02/17 15:28 Dose: 125 mls/hr Assessment/Plan Comment:: PRIMARY ASSESSMENT/PLAN: UTI. UA revealed trace blood and leukocytes and many bacteria. Urine culture pending. WBC 15.3 with left shift. Continue IV rocephin (has cephalosporin allergy, but tolerating now). Left-sided back spasms. This could be related to urinary infection, however she does have a history of compression fracture of the thoracolumbar vertebra. Restart baclofen 5 mg TID PRN. Continue on previous hydrocodone PRN. Monitor for sedation and increased confusion. Moderate dehydration. BUN 53, creatinine 1.51, GFR 33. Appears patient's baseline creatinine is around 1.0. Decrease IV fluids from 125 mL/hr to 100 mL/ hr overnight. BMP in AM. Holding bumetanide. Mild confusion, most likely related to UTI. Patient not normally confused per nurses report. Paroxysmal atrial fibrillation. INR elevated at 5.7. Hold evening warfarin dose. Recheck INR in AM. Continue sotalol and lopressor, question dual beta- yakov coverage, however seems to be tolerating this. Chronic diastolic heart failure, not in exacerbation currently. ECHO (October 2016) revealed ejection fraction of 60%, normal left ventricle size, thickness, and function; grade 1A diastolic dysfunction. Daily weights. Accurate I & O. Holding bumetanide due to dehydration. Will need to monitor fluid status closely. CKD stage 3. GFR 33. SECONDARY ASSESSMENT/PLAN: Hypertension. Continue lisinopril and lopressor. History of carotid artery stenosis. History of peripheral vascular disease. Severe aortic stenosis, S/P TAVR. 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 Anemia, iron deficiency. Continue oral iron. History of giant cell arteritis. History of mitral stenosis. COPD, stable. Continue Brovana, Pulmicort, daliresp, and spiriva. Continue PRN albuterol. Continue with continuous oxygen at 3 liters. Hypothyroidism. Continue levothyroxine. TSH 0.51 in October. Repeat TSH in AM. Hyperlipidemia. Continue pravastatin. Steroid-induced diabetes mellitus. Daily accuchecks. Continue glipizide. Secondary parathyroidism of renal origin. Depression. Continue effexor. History of diverticulitis. History of colon adenomas. Colostomy in place. History of breast carcinoma. History of basal cell carcinoma. Esophageal reflux. Continue omeprazole. Osteoporosis. History of compression fracture of thoracolumbar vertebra. History of pseudogout. DVT prophylaxis. Patient on warfarin and INR elevated at 5.7. Holding warfarin currently. Patient has Steve stockings on. Overall plan: Continue to rehydrate with IV fluids. Treat UTI with IV rocephin until culture is back. Continue to monitor for back spasms and cognition.
[2017-02-02] MEDS: glipiZIDE 2.5 MG Tab.ER PO SCH (18:44)
[2017-02-02] MEDS ORDERED: Ondansetron 4 MG Tab.DIS PO PRN (18:45)
[2017-02-02] MEDS: Acetaminophen/HYDROcodone 325-5 MG Tab PO PRN (19:24)
[2017-02-02] MEDS: Arformoterol 15 MCG/2 ML Neb Soln NEB SCH (19:55)
[2017-02-02] MEDS: Omeprazole 20 MG Cap.CR PO SCH (20:12)
[2017-02-02] MEDS: Docusate Sodium 100 MG Cap PO SCH (20:16)
[2017-02-02] MEDS: Metoprolol Tartrate 25 MG Tab PO SCH (20:16)
[2017-02-02] MEDS: Budesonide 0.5 MG/2 ML Neb Susp INH SCH (20:29)
[2017-02-02] MEDS: Baclofen 10 MG Tab PO PRN (20:47)
[2017-02-02] MEDS ORDERED: Pravastatin 20 MG Tab PO SCH (21:00)
[2017-02-03] MEDS: Levothyroxine 88 MCG Tab PO SCH (06:10)
[2017-02-03] MEDS: Acetaminophen/HYDROcodone 325-5 MG Tab PO PRN ×3 (06:29→20:52)
[2017-02-03] MEDS: Arformoterol 15 MCG/2 ML Neb Soln NEB SCH ×2 (07:15→20:15)
[2017-02-03] MEDS: Baclofen 10 MG Tab PO PRN (07:23)
[2017-02-03] MEDS ORDERED: Lutein/Minerals/Vit A,C & E Tab PO SCH (08:00)
[2017-02-03] MEDS ORDERED: predniSONE 5 MG Tab PO SCH (08:00)
[2017-02-03] MEDS: Budesonide 0.5 MG/2 ML Neb Susp INH SCH ×2 (08:43→20:42)
[2017-02-03] MEDS ORDERED: Lutein/Minerals/Vitamins A, C & E Tab PO SCH (08:45)
[2017-02-03] MEDS ORDERED: Calcium Citrate/Vitamin D3 315 MG-250 Unit Tab PO SCH (09:00)
[2017-02-03] MEDS ORDERED: Ferrous Sulfate 325 MG Tab PO SCH (09:00)
[2017-02-03] MEDS: Cholecalciferol (Vitamin D3) 1,000 Unit Tab PO SCH (09:12)
[2017-02-03] MEDS: Docusate Sodium 100 MG Cap PO SCH ×2 (09:12→20:48)
[2017-02-03] MEDS: glipiZIDE 2.5 MG Tab.ER PO SCH (09:12)
[2017-02-03] MEDS: Potassium Chloride 10 MEQ Tab.ER PO SCH (09:13)
[2017-02-03] MEDS: Venlafaxine 150 MG Cap.ER PO SCH (09:13)
[2017-02-03] MEDS: Polyethylene Glycol 3350 Powder 17 GM Packet PO SCH (09:14)
[2017-02-03] MEDS: Tiotropium Inhaler 18 MCG Inhalation Powder Cap Kit of 5 INH SCH (09:22)
[2017-02-03] MEDS: Lutein/Minerals/Vitamins A, C & E Tab PO SCH (09:41)
--- NOTE | 2017-02-03 10:08 | PCM.PN ---
- General Info Date of Service: 02/03/17 Functional Status: Reports: Pain Controlled (back spasms vacillates), Tolerating Diet, Urinating. Denies: Ambulating, New Symptoms - Review of Systems General: Reports: No Symptoms Pulmonary: Reports: No Symptoms Cardiovascular: Denies: Palpitations, Edema (No edema in lower extremities the past 2 weeks), Lightheadedness Gastrointestinal: Reports: Other (Colostomy) Genitourinary: Denies: Dysuria, Burning, Pain, Urgency Musculoskeletal: Reports: Back Pain (On and off back spasms) Skin: Reports: Dryness. Denies: Pruritis Neurological: Reports: Confusion (Mild confusion easily reoriented). Denies: Paresthesia, Tremors, Trouble Speaking - Patient Data Vitals - Most Recent: Last Vital Signs Temp 97.3 F 02/03/17 06:12 Pulse 64 02/03/17 07:15 Resp 20 02/03/17 06:12 BP 148/71 H 02/03/17 06:12 Pulse Ox 93 L 02/03/17 07:15 Weight - Most Recent: 127 lb 3.2 oz I&O - Last 24 Hours: Intake & Output 02/02/17 02/03/17 02/03/17 22:59 06:59 14:59 Intake Total 1004 1060 Output Total 300 300 Balance 704 760 Lab Results Last 24 Hours: Laboratory Results - last 24 hr 02/02/17 02/03/17 02/03/17 Range/Units 18:25 06:24 07:10 WBC 14.4 H (5.0-10.0) 10^3/uL RBC 2.47 L (3.80-5.50) 10^6/uL Hgb 8.6 L (12.0-16.0) g/dL Hct 26.8 L (37.0-47.0) % MCV 108.4 H (82.0-92.0) fL MCH 34.8 H (27.0-31.0) pg MCHC 32.1 (32.0-36.0) g/dL RDW 15.6 H (11.5-14.5) % Plt Count 191 (150-300) 10^3/uL MPV 9.8 (7.4-10.4) fL Neut % (Auto) 76.2 H (50.0-70.0) % Lymph % (Auto) 15.9 L (20.0-40.0) % Wilkes % (Auto) 6.2 (2.0-8.0) % Eos % (Auto) 1.0 (1.0-3.0) % Baso % (Auto) 0.7 (0.0-1.0) % Neut # (Auto) 11.0 H (2.5-7.0) 10^3/uL Lymph # (Auto) 2.3 (1.0-4.0) 10^3/uL Wilkes # (Auto) 0.9 H (0.1-0.8) 10^3/uL Eos # (Auto) 0.1 (0.1-0.3) 10^3/uL Baso # (Auto) 0.1 (0.0-0.1) 10^3/uL PT TNP INR 5.7 H* (0.9-1.1) Sodium (136-145) mmol/L Potassium (3.3-5.3) mmol/L Chloride (98-115) mmol/L Carbon Dioxide (21.0-32.0) mmol/L BUN (6-25) mg/dL Creatinine (0.51-1.17) mg/dL Est Cr Clr Drug Dosing mL/min Estimated GFR (MDRD) mL/min Glucose (70-110) mg/dL POC Glucose 61 L (74-106) mg/dl Calcium (8.7-10.3) mg/dL TSH, Ultra Sensitive (0.340-4.820) uIU/mL 02/03/17 02/03/17 Range/Units 07:10 07:10 WBC (5.0-10.0) 10^3/uL RBC (3.80-5.50) 10^6/uL Hgb (12.0-16.0) g/dL Hct (37.0-47.0) % MCV (82.0-92.0) fL MCH (27.0-31.0) pg MCHC (32.0-36.0) g/dL RDW (11.5-14.5) % Plt Count (150-300) 10^3/uL MPV (7.4-10.4) fL Neut % (Auto) (50.0-70.0) % Lymph % (Auto) (20.0-40.0) % Wilkes % (Auto) (2.0-8.0) % Eos % (Auto) (1.0-3.0) % Baso % (Auto) (0.0-1.0) % Neut # (Auto) (2.5-7.0) 10^3/uL Lymph # (Auto) (1.0-4.0) 10^3/uL Wilkes # (Auto) (0.1-0.8) 10^3/uL Eos # (Auto) (0.1-0.3) 10^3/uL Baso # (Auto) (0.0-0.1) 10^3/uL PT 47.8 H INR 4.4 H* (0.9-1.1) Sodium 150 H (136-145) mmol/L Potassium 3.7 (3.3-5.3) mmol/L Chloride 112 (98-115) mmol/L Carbon Dioxide 29.2 (21.0-32.0) mmol/L BUN 39 H (6-25) mg/dL Creatinine 1.08 (0.51-1.17) mg/dL Est Cr Clr Drug Dosing 30.34 mL/min Estimated GFR (MDRD) 49 mL/min Glucose 95 (70-110) mg/dL POC Glucose (74-106) mg/dl Calcium 9.0 (8.7-10.3) mg/dL TSH, Ultra Sensitive 2.510 (0.340-4.820) uIU/mL Erick Results Last 24 Hours: Microbiology 02/02/17 18:25 Urine Culture - Preliminary Urine, Voided NO GROWTH AFTER 1 DAY Med Orders - Current: Current Medications Hydrocodone Bitart/Acetaminophen ([place] 325-5 Mg) 1 - 2 tab PO Q6H PRN PRN Reason: Pain Last Admin: 02/03/17 06:29 Dose: 1 tab Albuterol (Proventil Neb Soln) 2.5 mg NEB QID PRN PRN Reason: Shortness of Breath Albuterol (Ventolin Hfa) 0 gm INH Q4HR PRN PRN Reason: Shortness of Breath Arformoterol Tartrate (Brovana) 15 mcg NEB BIDRT [facility] Last Admin: 02/03/17 07:15 Dose: 15 mcg Baclofen (Lioresal) 5 mg PO TID PRN PRN Reason: Spasms Last Admin: 02/03/17 07:23 Dose: 5 mg Budesonide (Pulmicort) 0.25 mg INH BIDRT [facility] Last Admin: 02/03/17 08:43 Dose: 0.25 mg Calcium Citrate (Calcium Citrate + D) 2 tab PO BEDTIME [facility] Ceftriaxone Sodium (Rocephin) 1 gm IVPUSH Q24H [facility] Last Admin: 02/02/17 15:27 Dose: 1 gm Cholecalciferol (Vitamin D3) 1,000 units PO DAILY@0800 [facility] Last Admin: 02/03/17 09:12 Dose: 1,000 units Dapsone (Dapsone) 100 mg PO DAILY [facility] Last Admin: 02/03/17 09:12 Dose: 100 mg Docusate Sodium (Colace) 100 mg PO BID [facility] Last Admin: 02/03/17 09:12 Dose: 100 mg Ferrous Sulfate (Ferrous Sulfate) 325 mg PO DAILY@1800 [facility] Glipizide (Glucotrol Xl) 2.5 mg PO BRK [facility] Last Admin: 02/03/17 09:12 Dose: 2.5 mg Sodium Chloride (Normal Saline) 1,000 mls @ 100 mls/hr IV ASDIRECTED [facility] Last Admin: 02/03/17 00:48 Dose: 100 mls/hr Levothyroxine Sodium (Synthroid) 88 mcg PO DAILY@0600 [facility] Last Admin: 02/03/17 06:10 Dose: 88 mcg Lisinopril (Prinivil) 5 mg PO DAILY [facility] Metoprolol Tartrate (Lopressor) 12.5 mg PO BID [facility] Last Admin: 02/02/17 20:16 Dose: 12.5 mg Multivitamins/Minerals (Ocuvite) 1 each PO DAILY@0800 [facility] Omeprazole (Omeprazole) 40 mg PO DAILY@2000 [facility] Last Admin: 02/02/17 20:12 Dose: 40 mg Ondansetron HCl (Zofran Odt) 4 mg PO Q4H PRN PRN Reason: NAUSEA Polyethylene Glycol (Miralax) 17 gm PO DAILY [facility] Last Admin: 02/03/17 09:14 Dose: 17 gm Potassium Chloride (Klor-Con 10) 10 meq PO DAILY [facility] Last Admin: 02/03/17 09:13 Dose: 10 meq Pravastatin Sodium (Pravachol) 40 mg PO BEDTIME [facility] Last Admin: 02/02/17 20:42 Dose: Not Given Prednisone (Prednisone) 5 mg PO DAILY@1700 [facility] Prednisone (Prednisone) 10 mg PO WITHBREAKFAST [facility] Last Admin: 02/03/17 09:12 Dose: 10 mg Roflumilast (Daliresp) 500 mcg PO DAILY [facility] Sotalol HCl (Betapace) 120 mg PO DAILY [facility] Tiotropium [place] (Spiriva Handihaler) 18 mcg INH DAILYRT [facility] Venlafaxine HCl (Effexor Xr) 150 mg PO DAILY [facility] Last Admin: 02/03/17 09:13 Dose: 150 mg Discontinued Medications Calcium Citrate (Calcium Citrate + D) 2 tab PO DAILY [facility] Ferrous Sulfate (Ferrous Sulfate) 325 mg PO DAILY [facility] Sodium Chloride (Normal Saline) 500 mls @ 500 drops/hr IV .BOLUS [facility] Sodium Chloride (Normal Saline) 500 mls @ 500 mls/hr IV .BOLUS [facility] Last Admin: 02/02/17 12:18 Dose: 500 mls/hr Sodium Chloride (Normal Saline) 1,000 mls @ 125 mls/hr IV ASDIRECTED [facility] Last Admin: 02/02/17 15:28 Dose: 125 mls/hr Multivitamins/Minerals (I-Silvina) 1 each PO DAILY@0800 [facility] Sodium Chloride (Syrex Flush) 5 ml FLUSH Q8HR PRN PRN Reason: Keep Vein Open Last Admin: 02/02/17 12:21 Dose: 5 ml Sodium Chloride (Syrex Flush) 5 ml FLUSH Q8HR PRN PRN Reason: Keep Vein Open - Exam Quality Assessment: Supplemental Oxygen General: Alert, Cooperative (Recognize my name upon entering room, however she believes she is 62 years old), No Acute Distress. No: Oriented Neck: Supple Lungs: Decreased Breath Sounds Cardiovascular: Regular Rate (Rate 60s), Regular Rhythm, Bradycardia, Murmurs GI/Abdominal Exam: Soft Back Exam: Muscle Spasm Extremities: No Pedal Edema Peripheral Pulses: 2+: Radial (R), Femoral (L) Skin: Other (Severe brawniness upper extremities) Neurological: Normal Speech, Normal Tone Psy/Mental Status: Alert, Normal Affect, Normal Mood - Problem List Review Problem List Initiated/Reviewed/Updated: Yes - Plan Plan:: HISTORY OF PRESENT ILLNESS 81-year-old female with chronic medical conditions quite extensively was admitted overnight through the ED due to acute on chronic muscle spasms in her back on controlled baclofen. Baclofen was given cough some mild confusion. Patient white dehydrated on admission with some mild confusion on admission. Jossie is a resident of a long-term [facility]. Patient's white count upon admission was 15,000 with elevated neutrophils--leukocytosis with ANC 10778. Appeared to have a urinary tract infection started on IV antibiotics and fluids. She also had an elevated BUN and creatinine level. She states she does not drink very much fluids and she should drink more than she usually does. She is on twice a day Bumex and she states she gets edematous in her lower extremities if she does not take this. He denies vomiting or diarrhea. CODE STATUS, DO NOT RESUSCITATE PRIMARY ASSESSMENT/PLAN: Urinary tract infection-symptomatic, continue with Rocephin, appears to be improving, white count improving, ANC 10,900. Urine culture pending. Left-sided back spasms. Acute on chronic, heating pad today continue with baclofen 5 mg TID PRN. Continue on previous hydrocodone PRN. Monitor for sedation and increased confusion. Hypovolemia Hypernatremia, sodium 150, approximately 2 L free water deficit. Likely due to impaired thirst response and non-renal water loss due to respiratory status along with thiazide diuretic use and institutionalization at senior care. MAP good. Much improved with isotonic saline now we can change IV fluids and decrease rate to 70. Holding bumetanide. Hypovolemia/Dehydration due to free water deficit, now mild, received necessary isotonic fluids since admission now will switch to 0.45% NS at 70mL/hr. Renal indices improving closer to baseline. Holding bumetanide. Mild confusion, most likely related to UTI. Some improvement this morning. Paroxysmal atrial fibrillation. INR elevated however improving. Holding Coumadin for now. Recheck INR in AM. Continue sotalol and lopressor. Since high risk antiarrhythmic sotalol assessed EKG--QTc<500 HFpEF; diastolic, not in exacerbation currently. ECHO (October 2016) revealed ejection fraction of 60%, normal left ventricle size, thickness, and function; grade 1A diastolic dysfunction. Weight down 3 pounds likely due to hypovolemia. Daily weights. Holding bumetanide due to dehydration. Will need to monitor fluid status closely. CKD stage 3. GFR 49 with creatinine clearance around 30 SECONDARY ASSESSMENT/PLAN: Hypertension. Continue lisinopril and lopressor. However reduce lopressor by 50 % to 6.125 bid History of carotid artery stenosis. History of peripheral vascular disease. Severe aortic stenosis, S/P TAVR. 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 Anemia, iron deficiency. Continue oral iron. History of giant cell arteritis. History of mitral stenosis. COPD, stable. Continue Brovana, Pulmicort, daliresp, and spiriva. Continue PRN albuterol. Continue with continuous oxygen at 3 liters. Hypothyroidism. Continue levothyroxine. TSH 2.5 Hyperlipidemia. Continue pravastatin. Steroid-induced diabetes mellitus. Daily accuchecks. Continue glipizide. Secondary parathyroidism of renal origin. Depression. Continue effexor. History of diverticulitis. History of colon adenomas. Colostomy in place. History of breast carcinoma. History of basal cell carcinoma. Hx of Esophageal reflux. Continue PPI Osteoporosis--exacerbated by chronic steroid use. History of compression fracture of thoracolumbar vertebra. History of pseudogout. DVT prophylaxis. Patient on warfarin and INR elevated at 4.4--coming down from 5.7 on admission. Holding warfarin currently. Patient has Steve stockings on.
[2017-02-03] MEDS ORDERED: Ketoprofen 12 GM, Menthol 1.8 GM, Trolamine Salicylate/Aloe Vera 46.2 GM TOP PRN ×3 (10:13)
[2017-02-03] MEDS: Sotalol 80 MG Tab PO SCH (10:23)
[2017-02-03] MEDS: Lisinopril 5 MG Tab PO SCH (10:24)
[2017-02-03] MEDS: Metoprolol Tartrate 25 MG Tab PO SCH ×3 (10:32→20:49)
[2017-02-03] MEDS: Roflumilast 500 MCG Tab PO SCH (10:39)
[2017-02-03] MEDS: [UNRECOGNIZED DRUG - OTHER] TOP SCH ×2 (10:40→20:51)
[2017-02-03] MEDS: Sodium Chloride 0.45% 1,000 ML IV SCH ×2 (10:42→23:05)
[2017-02-03] MEDS: Ferrous Sulfate 325 MG Tab PO SCH (11:49)
[2017-02-03] MEDS: cefTRIAXone 1 GM Vial IVPUSH SCH (13:45)
[2017-02-03] MEDS: predniSONE 5 MG Tab PO SCH (16:52)
[2017-02-03] MEDS: Omeprazole 20 MG Cap.CR PO SCH (20:15)
[2017-02-03] MEDS: Simvastatin 20 MG Tab PO SCH (20:48)
[2017-02-03] MEDS: Calcium Citrate/Vitamin D3 315 MG-250 Unit Tab PO SCH (20:59)
[2017-02-04] MEDS: Baclofen 10 MG Tab PO PRN ×2 (01:46→18:39)
[2017-02-04] MEDS: Acetaminophen/HYDROcodone 325-5 MG Tab PO PRN ×2 (06:48→12:35)
[2017-02-04] MEDS: Levothyroxine 88 MCG Tab PO SCH (06:48)
[2017-02-04] MEDS: Arformoterol 15 MCG/2 ML Neb Soln NEB SCH ×2 (06:59→20:18)
[2017-02-04] MEDS: Budesonide 0.5 MG/2 ML Neb Susp INH SCH ×2 (07:34→20:18)
[2017-02-04] MEDS: Sotalol 80 MG Tab PO SCH (08:42)
[2017-02-04] MEDS: Lutein/Minerals/Vitamins A, C & E Tab PO SCH (08:42)
[2017-02-04] MEDS: Cholecalciferol (Vitamin D3) 1,000 Unit Tab PO SCH (08:42)
[2017-02-04] MEDS: glipiZIDE 2.5 MG Tab.ER PO SCH (08:42)
[2017-02-04] MEDS: predniSONE 10 MG Tab PO SCH (08:42)
[2017-02-04] MEDS: Docusate Sodium 100 MG Cap PO SCH ×2 (08:43→20:11)
[2017-02-04] MEDS: Roflumilast 500 MCG Tab PO SCH (08:43)
[2017-02-04] MEDS: Polyethylene Glycol 3350 Powder 17 GM Packet PO SCH (08:46)
[2017-02-04] MEDS: Lisinopril 5 MG Tab PO SCH (08:46)
[2017-02-04] MEDS: Venlafaxine 150 MG Cap.ER PO SCH (08:46)
[2017-02-04] MEDS: Potassium Chloride 10 MEQ Tab.ER PO SCH (08:46)
[2017-02-04] MEDS: Metoprolol Tartrate 25 MG Tab PO SCH ×2 (08:46→20:17)
[2017-02-04] MEDS: [UNRECOGNIZED DRUG - OTHER] TOP SCH ×2 (08:47→20:12)
[2017-02-04] MEDS: Tiotropium Inhaler 18 MCG Inhalation Powder Cap Kit of 5 INH SCH (08:56)
--- NOTE | 2017-02-04 09:43 | PCM.PN ---
- General Info Date of Service: 02/04/17 Functional Status: Reports: Pain Controlled, Tolerating Diet, New Symptoms ( nurses report increase wt. However no increase in SOB), Incentive Spirometry - Review of Systems General: Denies: Fever, Fatigue, Malaise Pulmonary: Reports: No Symptoms Cardiovascular: Reports: Edema (slightly in hands ) Gastrointestinal: Reports: Other (dark stool in colostomy--on Iron supplement. ) . Denies: Abdominal Pain, Decreased Appetite, Diarrhea, Nausea, Vomiting Genitourinary: Reports: No Symptoms Musculoskeletal: Denies: Back Pain (back pain much improved. ) Skin: Reports: Bruising Neurological: Reports: No Symptoms Psychiatric: Reports: No Symptoms - Patient Data Vitals - Most Recent: Last Vital Signs Temp 97.3 F 02/04/17 06:35 Pulse 62 02/04/17 08:46 Resp 18 02/04/17 06:35 BP 139/46 L 02/04/17 08:46 Pulse Ox 96 02/04/17 06:58 Weight - Most Recent: 132 lb 3.2 oz I&O - Last 24 Hours: Intake & Output 02/03/17 02/04/17 02/04/17 22:59 06:59 14:59 Intake Total 990 768 Output Total 600 900 Balance 390 -132 Lab Results Last 24 Hours: Laboratory Results - last 24 hr 02/04/17 02/04/17 02/04/17 Range/Units 06:15 07:08 07:08 WBC 9.5 (5.0-10.0) 10^3/uL RBC 2.10 L (3.80-5.50) 10^6/uL Hgb 7.4 L (12.0-16.0) g/dL Hct 22.8 L (37.0-47.0) % MCV 108.7 H (82.0-92.0) fL MCH 35.3 H (27.0-31.0) pg MCHC 32.5 (32.0-36.0) g/dL RDW 15.1 H (11.5-14.5) % Plt Count 161 (150-300) 10^3/uL MPV 8.6 (7.4-10.4) fL Neut % (Auto) 74.0 H (50.0-70.0) % Lymph % (Auto) 17.0 L (20.0-40.0) % Fallon % (Auto) 7.9 (2.0-8.0) % Eos % (Auto) 0.7 L (1.0-3.0) % Baso % (Auto) 0.4 (0.0-1.0) % Neut # (Auto) 7.0 (2.5-7.0) 10^3/uL Lymph # (Auto) 1.6 (1.0-4.0) 10^3/uL Fallon # (Auto) 0.8 (0.1-0.8) 10^3/uL Eos # (Auto) 0.1 (0.1-0.3) 10^3/uL Baso # (Auto) 0.0 (0.0-0.1) 10^3/uL Sodium 146 H (136-145) mmol/L Potassium 4.1 (3.3-5.3) mmol/L Chloride 112 (98-115) mmol/L Carbon Dioxide 30.2 (21.0-32.0) mmol/L BUN 34 H (6-25) mg/dL Creatinine 0.96 (0.51-1.17) mg/dL Est Cr Clr Drug Dosing 34.13 mL/min Estimated GFR (MDRD) 56 mL/min Glucose 65 L (70-110) mg/dL POC Glucose 62 L (74-106) mg/dl Calcium 9.0 (8.7-10.3) mg/dL Erick Results Last 24 Hours: Microbiology 02/02/17 18:25 Urine Culture - Final Urine, Voided MIXED MAXX SUGGESTIVE OF CONTAMINATION. Med Orders - Current: Current Medications Hydrocodone Bitart/Acetaminophen ([place] 325-5 Mg) 1 - 2 tab PO Q6H PRN PRN Reason: Pain Last Admin: 02/04/17 06:48 Dose: 1 tab Albuterol (Proventil Neb Soln) 2.5 mg NEB QID PRN PRN Reason: Shortness of Breath Albuterol (Ventolin Hfa) 0 gm INH Q4HR PRN PRN Reason: Shortness of Breath Arformoterol Tartrate (Brovana) 15 mcg NEB BIDRT [facility] Last Admin: 02/04/17 06:59 Dose: 15 mcg Baclofen (Lioresal) 5 mg PO TID PRN PRN Reason: Spasms Last Admin: 02/04/17 01:46 Dose: 5 mg Budesonide (Pulmicort) 0.5 mg INH BIDRT [facility] Last Admin: 02/04/17 07:34 Dose: 0.5 mg Calcium Citrate (Calcium Citrate + D) 2 tab PO BEDTIME [facility] Last Admin: 02/03/17 20:59 Dose: Not Given Ceftriaxone Sodium (Rocephin) 1 gm IVPUSH Q24H [facility] Last Admin: 02/03/17 13:45 Dose: 1 gm Cholecalciferol (Vitamin D3) 1,000 units PO DAILY@0800 [facility] Last Admin: 02/04/17 08:42 Dose: 1,000 units Dapsone (Dapsone) 100 mg PO DAILY [facility] Last Admin: 02/04/17 08:43 Dose: 100 mg Docusate Sodium (Colace) 100 mg PO BID [facility] Last Admin: 02/04/17 08:43 Dose: 100 mg Ferrous Sulfate (Ferrous Sulfate) 325 mg PO DAILY@1200 [facility] Last Admin: 02/03/17 11:49 Dose: 325 mg Glipizide (Glucotrol Xl) 2.5 mg PO BRK [facility] Last Admin: 02/04/17 08:42 Dose: 2.5 mg Sodium Chloride (Sodium Chloride 0.45%) 1,000 mls @ 75 mls/hr IV ASDIRECTED [facility] Last Admin: 02/03/17 23:05 Dose: 75 mls/hr Levothyroxine Sodium (Synthroid) 88 mcg PO DAILY@0600 [facility] Last Admin: 02/04/17 06:48 Dose: 88 mcg Lisinopril (Prinivil) 5 mg PO DAILY [facility] Last Admin: 02/04/17 08:46 Dose: 5 mg Metoprolol Tartrate (Lopressor) 6.25 mg PO BID [facility] Last Admin: 02/04/17 08:46 Dose: 6.25 mg Multivitamins/Minerals (Ocuvite) 1 each PO DAILY@0800 [facility] Last Admin: 02/04/17 08:42 Dose: 1 each Omeprazole (Omeprazole) 40 mg PO DAILY@2000 [facility] Last Admin: 02/03/17 20:15 Dose: 40 mg Ondansetron HCl (Zofran Odt) 4 mg PO Q4H PRN PRN Reason: NAUSEA Ptom Rup Rub (Analgesic Cream) 0 each TOP BID [facility] Last Admin: 02/04/17 08:47 Dose: 1 each Polyethylene Glycol (Miralax) 17 gm PO DAILY [facility] Last Admin: 02/04/17 08:46 Dose: 17 gm Potassium Chloride (Klor-Con 10) 10 meq PO DAILY [facility] Last Admin: 02/04/17 08:46 Dose: 10 meq Prednisone (Prednisone) 5 mg PO DAILY@1700 [facility] Last Admin: 02/03/17 16:52 Dose: 5 mg Prednisone (Prednisone) 10 mg PO WITHBREAKFAST [facility] Last Admin: 02/04/17 08:42 Dose: 10 mg Roflumilast (Daliresp) 500 mcg PO DAILY [facility] Last Admin: 02/04/17 08:43 Dose: 500 mcg Simvastatin (Zocor) 20 mg PO BEDTIME [facility] Last Admin: 02/03/17 20:48 Dose: 20 mg Sotalol HCl (Betapace) 120 mg PO DAILY [facility] Last Admin: 02/04/17 08:42 Dose: 120 mg Tiotropium Alanson (Spiriva Handihaler) 18 mcg INH DAILYRT [facility] Last Admin: 02/04/17 08:56 Dose: 18 mcg Venlafaxine HCl (Effexor Xr) 150 mg PO DAILY [facility] Last Admin: 02/04/17 08:46 Dose: 150 mg Discontinued Medications Budesonide (Pulmicort) 0.25 mg INH BIDRT [facility] Last Admin: 02/03/17 08:43 Dose: 0.25 mg Calcium Citrate (Calcium Citrate + D) 2 tab PO DAILY [facility] Ferrous Sulfate (Ferrous Sulfate) 325 mg PO DAILY [facility] Sodium Chloride (Normal Saline) 500 mls @ 500 drops/hr IV .BOLUS [facility] Sodium Chloride (Normal Saline) 500 mls @ 500 mls/hr IV .BOLUS [facility] Last Admin: 02/02/17 12:18 Dose: 500 mls/hr Sodium Chloride (Normal Saline) 1,000 mls @ 125 mls/hr IV ASDIRECTED [facility] Last Admin: 02/02/17 15:28 Dose: 125 mls/hr Sodium Chloride (Normal Saline) 1,000 mls @ 100 mls/hr IV ASDIRECTED [facility] Last Admin: 02/03/17 00:48 Dose: 100 mls/hr Metoprolol Tartrate (Lopressor) 12.5 mg PO BID [facility] Last Admin: 02/03/17 10:32 Dose: Not Given Multivitamins/Minerals (I-Silvina) 1 each PO DAILY@0800 [facility] Last Admin: 02/03/17 09:30 Dose: Not Given Multivitamins/Minerals (Ocuvite) 1 each PO DAILY@0800 [facility] Pravastatin Sodium (Pravachol) 40 mg PO BEDTIME [facility] Last Admin: 02/02/17 20:42 Dose: Not Given Prednisone (Prednisone) 10 mg PO WITHBREAKFAST [facility] Last Admin: 02/03/17 09:12 Dose: 10 mg Sodium Chloride (Syrex Flush) 5 ml FLUSH Q8HR PRN PRN Reason: Keep Vein Open Last Admin: 02/02/17 12:21 Dose: 5 ml Sodium Chloride (Syrex Flush) 5 ml FLUSH Q8HR PRN PRN Reason: Keep Vein Open - Exam Quality Assessment: Supplemental Oxygen General: Alert, Oriented Neck: Supple, No JVD Lungs: Crackles (very slight crackles Right base. ) GI/Abdominal Exam: Normal Bowel Sounds, Non-Tender, No Distention. No: Distended, Rigid, Rebound Extremities: No Pedal Edema Peripheral Pulses: 2+: Radial (L), Radial (R) Skin: Other (brawniness BUE; slight BLE) Psy/Mental Status: Alert, Normal Affect, Normal Mood - Problem List Review Problem List Initiated/Reviewed/Updated: Yes - My Orders Last 24 Hours: My Active Orders 02/03/17 09:37 RT Incentive Spirometry [RC] Q1HWA 02/03/17 10:00 Sodium Chloride 0.45% 1,000 ml IV ASDIRECTED 02/03/17 10:02 Budesonide [Pulmicort] 0.5 mg INH BIDRT 02/03/17 10:05 EKG Documentation Completion [RC] ASDIRECTED EKG 12 Lead [EK] Routine 02/03/17 10:23 Heat Therapy [OM.PC] Routine 02/03/17 10:30 Metoprolol Tartrate [Lopressor] 6.25 mg PO BID 02/03/17 11:00 Patient's Own Medication [Ptom] 0 each TOP BID 02/05/17 05:30 INR,PT,PROTHROMBIN TIME [COAG] Routine - Plan Plan:: HISTORY OF PRESENT ILLNESS 81-year-old female with chronic medical conditions quite extensively was admitted overnight through the ED due to acute on chronic muscle spasms in her back on controlled baclofen. Baclofen was given cough some mild confusion. Patient white dehydrated on admission with some mild confusion on admission. Jossie is a resident of a long-term care center. Patient's white count upon admission was 15,000 with elevated neutrophils--leukocytosis with ANC [id number]. Appeared to have a urinary tract infection started on IV antibiotics and fluids. She also had an elevated BUN and creatinine level. She states she does not drink very much fluids and she should drink more than she usually does. She is on twice a day Bumex and she states she gets edematous in her lower extremities if she does not take this. He denies vomiting or diarrhea. CODE STATUS, DO NOT RESUSCITATE PRIMARY ASSESSMENT/PLAN: Urinary tract infection-symptomatic, continue with Rocephin, appears to be improving, white count improving, ANC 10,900. Urine culture pending. Left-sided back spasms. Acute on chronic, heating pad today continue with baclofen 5 mg TID PRN. Continue on previous hydrocodone PRN. Monitor for sedation and increased confusion. Anemia, macrocytic, hyperchromic, anisocytosis, acute drop in hemoglobin 2 g on admission however 3-4 g drop since October. Corresponding hematocrit. Likely evolving since increase RDW. Has colostomy, no history of vitamin B12 or folate deficiency, has been on iron. No EtOH use, since she is on multivitamin so a regular folate level could be normal, will determine if lab can assess RBC folate versus just serum folate levels. Likely not medication induced since her macrocytic more on the extreme side with increase RDW. Vitamin B12 level normal 2 years ago. Colonoscopy 2014 demonstrated dense diverticulosis noted in descending colon and sigmoid--she did have perforated sigmoid diverticulitis and underwent a sigmoidectomy with end colostomy. She is status post TAVR due to aortic stenosis, She does have chronic kidney disease and since creatinine is less than 45 likely contributing to her anemia status. May need erythropoietin injections. Check stool for occult blood, Overall I do feel it may be a mixed combination of CHRISTIAN (although I do not see history of iron levels in chart I suspect with folate/vitamin B12 deficiency in conjunction with anemia of chronic renal failure. Also on anticoagulation GI pathology possible. Anemia workup--along with peripheral smear today. May need repeat colonoscopy workup. Due to her cardiac and respiratory status and the downward trajectory of hemoglobin will transfuse 1 unit of packed red blood cells today after her peripheral smear was obtained. Hypovolemia Hypernatremia, sodium yesterday was 150 now improved. approximately 2 L free water deficit on admission--likely due to impaired thirst response and non-renal water loss due to respiratory status along with thiazide diuretic use and institutionalization at long-term. MAP good. Much improved with isotonic saline was given on admission and yesterday I changed her to free water. This was stopped this morning at 0 500 due to weight increased however weight increase was anticipated. Will restart bumetanide daily versus twice a day for now. Decrease rate to 50 mL per hour Hypovolemia/Dehydration due to free water deficit, now mild, received necessary isotonic fluids since admission been free water now will continue with free water and reduced to 50 mL per hour Renal indices much improved. Will start her back on her bumetanide however daily versus twice a day Mild confusion, most likely related to UTI. Much improved now at her baseline. Paroxysmal atrial fibrillation. INR elevated on admission. Been holding Coumadin. INR the a.m. Continue sotalol and lopressor. Since high risk antiarrhythmic sotalol assessed EKG--QTc<500. Reduced her Lopressor by 50%. HFpEF; diastolic, not in exacerbation currently. ECHO (October 2016) revealed ejection fraction of 60%, normal left ventricle size, thickness, and function; grade 1A diastolic dysfunction. Weight was down on admission down 3 pounds likely due to hypovolemia--now improving. Daily weights. Start back up on her loop diuretic however daily versus twice a day. CKD stage 3. GFR 49 with creatinine clearance around 30--likely contributing to her anemia status. SECONDARY ASSESSMENT/PLAN: Hypertension. Continue lisinopril and lopressor. However reduced lopressor by 50 % to 6.125 bid History of carotid artery stenosis. History of peripheral vascular disease. Severe aortic stenosis, S/P TAVR. 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 History of Anemia, iron deficiency. Continue oral iron. See note above regarding workup History of giant cell arteritis. History of mitral stenosis. COPD, stable. 60 pack year history quit 3 months ago, Continue Brovana, Pulmicort, daliresp, and spiriva. Continue PRN albuterol. Continue with continuous oxygen at 3 liters. Hypothyroidism. Continue levothyroxine. TSH 2.5 Hyperlipidemia. Continue pravastatin. Steroid-induced diabetes mellitus. Daily accuchecks. Continue glipizide. Secondary parathyroidism of renal origin. Depression. Continue effexor. History of diverticulitis. History of colon adenomas. Colostomy in place. History of breast carcinoma. History of basal cell carcinoma. Hx of Esophageal reflux. Continue PPI Osteoporosis--exacerbated by chronic steroid use. History of compression fracture of thoracolumbar vertebra. History of pseudogout. DVT prophylaxis. Patient on warfarin and INR elevated at 4.4--coming down from 5.7 on admission. Holding warfarin currently. Patient has Steve stockings on.
[2017-02-04] MEDS ORDERED: Sodium Chloride 0.45% 1,000 ML IV SCH (10:15)
[2017-02-04] MEDS: Bumetanide 1 MG Tab PO SCH (10:45)
[2017-02-04] MEDS: Ferrous Sulfate 325 MG Tab PO SCH (11:04)
[2017-02-04] MEDS: cefTRIAXone 1 GM Vial IVPUSH SCH (15:28)
[2017-02-04] MEDS: predniSONE 5 MG Tab PO SCH (16:17)
[2017-02-04] MEDS: Omeprazole 20 MG Cap.CR PO SCH (20:11)
[2017-02-04] MEDS: Simvastatin 20 MG Tab PO SCH (20:11)
[2017-02-04] MEDS: Calcium Citrate/Vitamin D3 315 MG-250 Unit Tab PO SCH (20:12)
[2017-02-05] MEDS: Acetaminophen/HYDROcodone 325-5 MG Tab PO PRN ×3 (03:17→15:40)
[2017-02-05] MEDS: Levothyroxine 88 MCG Tab PO SCH (05:51)
[2017-02-05] MEDS: Arformoterol 15 MCG/2 ML Neb Soln NEB SCH ×2 (07:19→20:05)
[2017-02-05] MEDS: Budesonide 0.5 MG/2 ML Neb Susp INH SCH ×2 (07:49→20:40)
[2017-02-05] MEDS: Polyethylene Glycol 3350 Powder 17 GM Packet PO SCH (08:36)
[2017-02-05] MEDS: Potassium Chloride 10 MEQ Tab.ER PO SCH (08:38)
[2017-02-05] MEDS: Docusate Sodium 100 MG Cap PO SCH ×2 (08:38→20:47)
[2017-02-05] MEDS: predniSONE 10 MG Tab PO SCH (08:38)
[2017-02-05] MEDS: Lisinopril 5 MG Tab PO SCH (08:38)
[2017-02-05] MEDS: Bumetanide 1 MG Tab PO SCH (08:38)
[2017-02-05] MEDS: Lutein/Minerals/Vitamins A, C & E Tab PO SCH (08:38)
[2017-02-05] MEDS: Cholecalciferol (Vitamin D3) 1,000 Unit Tab PO SCH (08:38)
[2017-02-05] MEDS: Venlafaxine 150 MG Cap.ER PO SCH (08:38)
[2017-02-05] MEDS: Metoprolol Tartrate 25 MG Tab PO SCH ×2 (08:39→20:49)
[2017-02-05] MEDS: Roflumilast 500 MCG Tab PO SCH (08:41)
[2017-02-05] MEDS: Sotalol 80 MG Tab PO SCH (08:47)
[2017-02-05] MEDS: [UNRECOGNIZED DRUG - OTHER] TOP SCH ×2 (08:52→20:48)
[2017-02-05] MEDS: Tiotropium Inhaler 18 MCG Inhalation Powder Cap Kit of 5 INH SCH (10:26)
[2017-02-05] MEDS: Baclofen 10 MG Tab PO PRN (10:36)
--- NOTE | 2017-02-05 10:51 | PCM.PN ---
- General Info Date of Service: 02/05/17 Functional Status: Reports: Pain Controlled, Tolerating Diet - Review of Systems General: Denies: Fever, Weakness, Fatigue Pulmonary: Denies: Shortness of Breath (Chronic COPD or however no increased from baseline), Cough, Sputum Cardiovascular: Reports: Edema (In her right hand with her IV however bilateral lower extremities no edema) Gastrointestinal: Denies: Abdominal Pain, Diarrhea, Difficulty Swallowing, Nausea, Vomiting Genitourinary: Denies: Flank Pain Musculoskeletal: Denies: Back Pain (On heating pad) Skin: Reports: Dryness Neurological: Denies: Confusion (Lucid alert and oriented however she remembers her birthday today but think she has been 20 years however much improved from baseline on admission) Psychiatric: Denies: Confusion - Patient Data Vitals - Most Recent: Last Vital Signs Temp 97.5 F 02/05/17 06:12 Pulse 63 02/05/17 08:47 Resp 20 02/05/17 06:12 BP 169/72 H 02/05/17 08:47 Pulse Ox 93 L 02/05/17 09:00 Weight - Most Recent: 132 lb 11.2 oz I&O - Last 24 Hours: Intake & Output 02/04/17 02/05/17 02/05/17 22:59 06:59 14:59 Intake Total 872 399 Output Total 600 250 Balance 272 149 Lab Results Last 24 Hours: Laboratory Results - last 24 hr 02/04/17 02/04/17 02/04/17 Range/Units 07:10 07:10 07:15 WBC 8.5 (3.9-11.3) x10-3 ul RBC 2.08 L (4.10-5.30) x10-6 ul Hgb 7.4 L (12.0-16.0) gm/dL Hct 22.9 L (37.0-47.0) % MCV 110 H (83-99) fL MCH 35.8 H (28.0-32.0) pg MCHC 32.5 (32.0-36.0) g/dL RDW 15.5 (10.9-15.7) Plt Count 155 (150-400) x10-3 ul MPV (7.4-10.4) fL Neut % (Auto) (50.0-70.0) % Lymph % (Auto) (20.0-40.0) % Dukes % (Auto) (2.0-8.0) % Eos % (Auto) (1.0-3.0) % Baso % (Auto) (0.0-1.0) % Neut # (Auto) (2.5-7.0) 10^3/uL Lymph # (Auto) (1.0-4.0) 10^3/uL Dukes # (Auto) (0.1-0.8) 10^3/uL Eos # (Auto) (0.1-0.3) 10^3/uL Baso # (Auto) (0.0-0.1) 10^3/uL Neutrophils % (Manual) 75 % Band Neuts % (Manual) 5 % Lymphocytes % (Manual) 13 % Monocytes % (Manual) 4 % Eosinophils % (Manual) 1 % Basophils % (Manual) 1 % Metamyelocytes % (Man) 0.5 % Myelocytes % (Man) 0.5 % Neutrophils # (Manual) 6.38 (1.80-7.00) x10-3 ul Band Neutrophils # Man 0.43 (0.00-0.70) x10-3 ul Lymphocytes # (Manual) 1.11 (1.00-4.80) x10-3 ul Monocytes # (Manual) 0.34 (0.00-0.80) x10-3 ul Eosinophils # (Manual) 0.09 (0.00-0.45) x10-3 ul Basophils # (Manual) 0.09 (0.00-0.20) x10-3 ul RBC/WBC/PLT Morphology Abnormal Platelet Estimate Adequate Polychromasia 1+ Basophilic Stippling Seen Macrocytosis 3+ Spherocytes 2+ Schistocytes 2+ Smear Path Review Path rpt Absolute Retic 0.1191 H (0.0200-0.1000) Percent Retic 5.7 H (0.3-2.2) % PT (8.9-11.4) SEC INR (0.9-1.1) Sodium (136-145) mmol/L Potassium (3.3-5.3) mmol/L Chloride (98-115) mmol/L Carbon Dioxide (21.0-32.0) mmol/L BUN (6-25) mg/dL Creatinine (0.51-1.17) mg/dL Est Cr Clr Drug Dosing mL/min Estimated GFR (MDRD) mL/min Glucose (70-110) mg/dL POC Glucose (74-106) mg/dl Calcium (8.7-10.3) mg/dL Iron 101 (35-145) ug/dL TIBC 240 L (261-478) ug/dL Transferrin % Sat 42.1 (20.0-50.0) % Ferritin 253 (11-307) ng/mL Vitamin B12 352 (180-914) pg/mL Blood Type Gel Antibody Screen Crossmatch 02/04/17 02/05/17 02/05/17 Range/Units 10:26 05:48 07:10 WBC (3.9-11.3) x10-3 ul RBC (4.10-5.30) x10-6 ul Hgb (12.0-16.0) gm/dL Hct (37.0-47.0) % MCV (83-99) fL MCH (28.0-32.0) pg MCHC (32.0-36.0) g/dL RDW (10.9-15.7) Plt Count (150-400) x10-3 ul MPV (7.4-10.4) fL Neut % (Auto) (50.0-70.0) % Lymph % (Auto) (20.0-40.0) % Dukes % (Auto) (2.0-8.0) % Eos % (Auto) (1.0-3.0) % Baso % (Auto) (0.0-1.0) % Neut # (Auto) (2.5-7.0) 10^3/uL Lymph # (Auto) (1.0-4.0) 10^3/uL Dukes # (Auto) (0.1-0.8) 10^3/uL Eos # (Auto) (0.1-0.3) 10^3/uL Baso # (Auto) (0.0-0.1) 10^3/uL Neutrophils % (Manual) % Band Neuts % (Manual) % Lymphocytes % (Manual) % Monocytes % (Manual) % Eosinophils % (Manual) % Basophils % (Manual) % Metamyelocytes % (Man) % Myelocytes % (Man) % Neutrophils # (Manual) (1.80-7.00) x10-3 ul Band Neutrophils # Man (0.00-0.70) x10-3 ul Lymphocytes # (Manual) (1.00-4.80) x10-3 ul Monocytes # (Manual) (0.00-0.80) x10-3 ul Eosinophils # (Manual) (0.00-0.45) x10-3 ul Basophils # (Manual) (0.00-0.20) x10-3 ul RBC/WBC/PLT Morphology Platelet Estimate Polychromasia Basophilic Stippling Macrocytosis Spherocytes Schistocytes Smear Path Review Absolute Retic (0.0200-0.1000) Percent Retic (0.3-2.2) % PT 13.8 H (8.9-11.4) SEC INR 1.3 H (0.9-1.1) Sodium (136-145) mmol/L Potassium (3.3-5.3) mmol/L Chloride (98-115) mmol/L Carbon Dioxide (21.0-32.0) mmol/L BUN (6-25) mg/dL Creatinine (0.51-1.17) mg/dL Est Cr Clr Drug Dosing mL/min Estimated GFR (MDRD) mL/min Glucose (70-110) mg/dL POC Glucose 107 H (74-106) mg/dl Calcium (8.7-10.3) mg/dL Iron (35-145) ug/dL TIBC (261-478) ug/dL Transferrin % Sat (20.0-50.0) % Ferritin (11-307) ng/mL Vitamin B12 (180-914) pg/mL Blood Type A POSITIVE Gel Antibody Screen Negative Crossmatch See Detail 02/05/17 02/05/17 Range/Units 07:10 07:10 WBC 9.7 (3.9-11.3) x10-3 ul RBC 2.67 L (4.10-5.30) x10-6 ul Hgb 8.9 L (12.0-16.0) gm/dL Hct 27.3 L (37.0-47.0) % MCV 102.1 H (83-99) fL MCH 33.4 H (28.0-32.0) pg MCHC 32.7 (32.0-36.0) g/dL RDW 20.6 H (10.9-15.7) Plt Count 150 (150-400) x10-3 ul MPV 9.4 (7.4-10.4) fL Neut % (Auto) 75.9 H (50.0-70.0) % Lymph % (Auto) 14.7 L (20.0-40.0) % Dukes % (Auto) 7.9 (2.0-8.0) % Eos % (Auto) 0.9 L (1.0-3.0) % Baso % (Auto) 0.6 (0.0-1.0) % Neut # (Auto) 7.3 H (2.5-7.0) 10^3/uL Lymph # (Auto) 1.4 (1.0-4.0) 10^3/uL Dukes # (Auto) 0.8 (0.1-0.8) 10^3/uL Eos # (Auto) 0.1 (0.1-0.3) 10^3/uL Baso # (Auto) 0.1 (0.0-0.1) 10^3/uL Neutrophils % (Manual) % Band Neuts % (Manual) % Lymphocytes % (Manual) % Monocytes % (Manual) % Eosinophils % (Manual) % Basophils % (Manual) % Metamyelocytes % (Man) % Myelocytes % (Man) % Neutrophils # (Manual) (1.80-7.00) x10-3 ul Band Neutrophils # Man (0.00-0.70) x10-3 ul Lymphocytes # (Manual) (1.00-4.80) x10-3 ul Monocytes # (Manual) (0.00-0.80) x10-3 ul Eosinophils # (Manual) (0.00-0.45) x10-3 ul Basophils # (Manual) (0.00-0.20) x10-3 ul RBC/WBC/PLT Morphology Platelet Estimate Polychromasia Basophilic Stippling Macrocytosis Spherocytes Schistocytes Smear Path Review Absolute Retic (0.0200-0.1000) Percent Retic (0.3-2.2) % PT (8.9-11.4) SEC INR (0.9-1.1) Sodium 146 H (136-145) mmol/L Potassium 4.0 (3.3-5.3) mmol/L Chloride 112 (98-115) mmol/L Carbon Dioxide 28.9 (21.0-32.0) mmol/L BUN 29 H (6-25) mg/dL Creatinine 0.93 (0.51-1.17) mg/dL Est Cr Clr Drug Dosing 34.65 mL/min Estimated GFR (MDRD) 58 mL/min Glucose 97 (70-110) mg/dL POC Glucose (74-106) mg/dl Calcium 8.7 (8.7-10.3) mg/dL Iron (35-145) ug/dL TIBC (261-478) ug/dL Transferrin % Sat (20.0-50.0) % Ferritin (11-307) ng/mL Vitamin B12 (180-914) pg/mL Blood Type Gel Antibody Screen Crossmatch Erick Results Last 24 Hours: Microbiology 02/04/17 11:10 Stool Occult Blood (ERICK) - Final Stool / Feces 02/02/17 18:25 Urine Culture - Final Urine, Voided MIXED MAXX SUGGESTIVE OF CONTAMINATION. Med Orders - Current: Current Medications Hydrocodone Bitart/Acetaminophen ([place] 325-5 Mg) 1 - 2 tab PO Q6H PRN PRN Reason: Pain Last Admin: 02/05/17 08:49 Dose: 2 tab Albuterol (Proventil Neb Soln) 2.5 mg NEB QID PRN PRN Reason: Shortness of Breath Albuterol (Ventolin Hfa) 0 gm INH Q4HR PRN PRN Reason: Shortness of Breath Arformoterol Tartrate (Brovana) 15 mcg NEB BIDRT [facility] Last Admin: 02/05/17 07:19 Dose: 15 mcg Baclofen (Lioresal) 5 mg PO TID PRN PRN Reason: Spasms Last Admin: 02/04/17 18:39 Dose: 5 mg Budesonide (Pulmicort) 0.5 mg INH BIDRT [facility] Last Admin: 02/05/17 07:49 Dose: 0.5 mg Bumetanide (Bumex) 0.5 mg PO DAILY [facility] Last Admin: 02/05/17 08:38 Dose: 0.5 mg Calcium Citrate (Calcium Citrate + D) 2 tab PO BEDTIME [facility] Last Admin: 02/04/17 20:12 Dose: Not Given Ceftriaxone Sodium (Rocephin) 1 gm IVPUSH Q24H [facility] Last Admin: 02/04/17 15:28 Dose: 1 gm Cholecalciferol (Vitamin D3) 1,000 units PO DAILY@0800 [facility] Last Admin: 02/05/17 08:38 Dose: 1,000 units Dapsone (Dapsone) 100 mg PO DAILY [facility] Last Admin: 02/05/17 08:47 Dose: 100 mg Docusate Sodium (Colace) 100 mg PO BID [facility] Last Admin: 02/05/17 08:38 Dose: 100 mg Ferrous Sulfate (Ferrous Sulfate) 325 mg PO DAILY@1200 [facility] Last Admin: 02/04/17 11:04 Dose: 325 mg Glipizide (Glucotrol Xl) 2.5 mg PO BRK [facility] Last Admin: 02/04/17 08:42 Dose: 2.5 mg Sodium Chloride (Sodium Chloride 0.45%) 1,000 mls @ 50 mls/hr IV ASDIRECTED [facility] Last Admin: 02/04/17 21:55 Dose: 50 mls/hr Levothyroxine Sodium (Synthroid) 88 mcg PO DAILY@0600 [facility] Last Admin: 02/05/17 05:51 Dose: 88 mcg Lisinopril (Prinivil) 5 mg PO DAILY [facility] Last Admin: 02/05/17 08:38 Dose: 5 mg Metoprolol Tartrate (Lopressor) 6.25 mg PO BID [facility] Last Admin: 02/05/17 08:39 Dose: 6.25 mg Multivitamins/Minerals (Ocuvite) 1 each PO DAILY@0800 [facility] Last Admin: 02/05/17 08:38 Dose: 1 each Omeprazole (Omeprazole) 40 mg PO DAILY@2000 [facility] Last Admin: 02/04/17 20:11 Dose: 40 mg Ondansetron HCl (Zofran Odt) 4 mg PO Q4H PRN PRN Reason: NAUSEA Ptom Rup Rub (Analgesic Cream) 0 each TOP BID [facility] Last Admin: 02/05/17 08:52 Dose: 1 each Polyethylene Glycol (Miralax) 17 gm PO DAILY [facility] Last Admin: 02/05/17 08:36 Dose: 17 gm Potassium Chloride (Klor-Con 10) 10 meq PO DAILY [facility] Last Admin: 02/05/17 08:38 Dose: 10 meq Prednisone (Prednisone) 5 mg PO DAILY@1700 [facility] Last Admin: 02/04/17 16:17 Dose: 5 mg Prednisone (Prednisone) 10 mg PO WITHBREAKFAST [facility] Last Admin: 02/05/17 08:38 Dose: 10 mg Roflumilast (Daliresp) 500 mcg PO DAILY [facility] Last Admin: 02/05/17 08:41 Dose: 500 mcg Simvastatin (Zocor) 20 mg PO BEDTIME [facility] Last Admin: 02/04/17 20:11 Dose: 20 mg Sotalol HCl (Betapace) 120 mg PO DAILY [facility] Last Admin: 02/05/17 08:47 Dose: 120 mg Tiotropium [place] (Spiriva [place]) 18 mcg INH DAILYRT [facility] Last Admin: 02/05/17 10:26 Dose: 18 mcg Venlafaxine HCl (Effexor Xr) 150 mg PO DAILY [facility] Last Admin: 02/05/17 08:38 Dose: 150 mg Discontinued Medications Budesonide (Pulmicort) 0.25 mg INH BIDRT [facility] Last Admin: 02/03/17 08:43 Dose: 0.25 mg Calcium Citrate (Calcium Citrate + D) 2 tab PO DAILY [facility] Ferrous Sulfate (Ferrous Sulfate) 325 mg PO DAILY [facility] Sodium Chloride (Normal Saline) 500 mls @ 500 drops/hr IV .BOLUS [facility] Sodium Chloride (Normal Saline) 500 mls @ 500 mls/hr IV .BOLUS [facility] Last Admin: 02/02/17 12:18 Dose: 500 mls/hr Sodium Chloride (Normal Saline) 1,000 mls @ 125 mls/hr IV ASDIRECTED [facility] Last Admin: 02/02/17 15:28 Dose: 125 mls/hr Sodium Chloride (Normal Saline) 1,000 mls @ 100 mls/hr IV ASDIRECTED [facility] Last Admin: 02/03/17 00:48 Dose: 100 mls/hr Sodium Chloride (Sodium Chloride 0.45%) 1,000 mls @ 75 mls/hr IV ASDIRECTED [facility] Last Infusion: 02/04/17 10:15 Dose: 50 mls/hr Metoprolol Tartrate (Lopressor) 12.5 mg PO BID [facility] Last Admin: 02/03/17 10:32 Dose: Not Given Multivitamins/Minerals (I-Silvina) 1 each PO DAILY@0800 [facility] Last Admin: 02/03/17 09:30 Dose: Not Given Multivitamins/Minerals (Ocuvite) 1 each PO DAILY@0800 [facility] Pravastatin Sodium (Pravachol) 40 mg PO BEDTIME [facility] Last Admin: 02/02/17 20:42 Dose: Not Given Prednisone (Prednisone) 10 mg PO WITHBREAKFAST [facility] Last Admin: 02/03/17 09:12 Dose: 10 mg Sodium Chloride (Syrex Flush) 5 ml FLUSH Q8HR PRN PRN Reason: Keep Vein Open Last Admin: 02/02/17 12:21 Dose: 5 ml Sodium Chloride (Syrex Flush) 5 ml FLUSH Q8HR PRN PRN Reason: Keep Vein Open - Exam Quality Assessment: Supplemental Oxygen General: Alert, Oriented, No Acute Distress Neck: Supple Lungs: Decreased Breath Sounds. No: Wheezing Cardiovascular: Regular Rate, Murmurs (Systolic 3/6). No: Irregular Rhythm GI/Abdominal Exam: Soft, Other (Colostomy soft stool--dark however baseline chronic for her currently on iron) Extremities: No Pedal Edema, Other (Extreme brawniness, thin in appearance upper extremity skin, lower extremities dry less brawniness no edema) Neurological: No New Focal Deficit Psy/Mental Status: Alert - Problem List Review Problem List Initiated/Reviewed/Updated: Yes - My Orders Last 24 Hours: My Active Orders 02/04/17 10:11 Blood Transfusion Reflex Orders [OM.PC] Routine 02/04/17 10:15 Bumetanide [Bumex] 0.5 mg PO DAILY Sodium Chloride 0.45% 1,000 ml IV ASDIRECTED 02/04/17 11:01 Transfuse RBC [Transfuse Red Blood Cells] [COMM] Routine - Plan Plan:: HISTORY OF PRESENT ILLNESS 81-year-old female with chronic medical conditions quite extensively was admitted overnight through the ED due to acute on chronic muscle spasms in her back on controlled baclofen. Baclofen was given cough some mild confusion. Patient white dehydrated on admission with some mild confusion on admission. Jossie is a resident of a long-term care center. Patient's white count upon admission was 15,000 with elevated neutrophils--leukocytosis with ANC [id number]. Appeared to have a urinary tract infection started on IV antibiotics and fluids. She also had an elevated BUN and creatinine level. She states she does not drink very much fluids and she should drink more than she usually does. She is on twice a day Bumex and she states she gets edematous in her lower extremities if she does not take this. He denies vomiting or diarrhea. CODE STATUS, DO NOT RESUSCITATE PRIMARY ASSESSMENT/PLAN: Left-sided back spasms. Much improved, none past 24 hours well tolerating her baclofen 5 mg TID PRN. Continue on previous hydrocodone PRN. Monitor for sedation and increased confusion. Anemia, macrocytic, hyperchromic, anisocytosis, acute drop in hemoglobin 2 g on admission however 3-4 g drop since October. Corresponding hematocrit. Likely evolving since increase RDW. Has colostomy, no history of vitamin B12 or folate deficiency, has been on iron. No EtOH use, since she is on multivitamin so a regular folate level could be normal, awaiting folate RBC results. Likely not medication induced since her macrocytic more on the extreme side with increase RDW. Vitamin B12 level normal 2 years ago. Colonoscopy 2014 demonstrated dense diverticulosis noted in descending colon and sigmoid--she did have perforated sigmoid diverticulitis and underwent a sigmoidectomy with end colostomy. She is status post TAVR due to aortic stenosis, She does have chronic kidney disease and since creatinine is less than 45 likely contributing to her anemia status. May need erythropoietin injections. Stool occult blood positive however likely chronic in nature. No hemodynamic instability, no abdominal pain, will assess hemoglobin in the a.m. after she received 1 unit of packed red blood cells. Hemoglobin responded to 8.9 . Overall I do feel it may be a mixed combination of CHRISTIAN (although I do not see history of iron levels in chart I suspect with folate/vitamin B12 deficiency in conjunction with anemia of chronic renal failure. Also on anticoagulation GI pathology possible. Anemia workup--along with peripheral smear today. May need repeat colonoscopy workup. Hypovolemia Hypernatremia, sodium is coming down has received free water. This is improved will saline lock her she's tolerating by mouth fluids. likely due to impaired thirst response and non-renal water loss due to respiratory status along with thiazide diuretic use and [facility]. MAP good. Much improved with isotonic saline was given on admission. Saline lock today Hypovolemia/Dehydration due to free water deficit, now euvolemic. Saline lock today Renal indices much improved. Daily bumex versus twice a day Paroxysmal atrial fibrillation. INR elevated on admission. Been holding Coumadin however now subtherapeutic. Due to her to have her and her proximal atrial fibrillation will start her back on her Coumadin and monitor INR carefully. Continue sotalol and lopressor. Since high risk antiarrhythmic sotalol assessed EKG--QTc<500. Reduced her Lopressor by 50%. HFpEF; diastolic, not in exacerbation currently. ECHO (October 2016) revealed ejection fraction of 60%, normal left ventricle size, thickness, and function; grade 1A diastolic dysfunction. Weight was down on admission down 3 pounds likely due to hypovolemia--now improving. Daily weights. Started back up on her loop diuretic however daily versus twice a day. CKD stage 3. GFR 49 with creatinine clearance around 30--likely contributing to her anemia status. SECONDARY ASSESSMENT/PLAN: Hypertension. Continue lisinopril and lopressor. However reduced lopressor by 50 % to 6.125 bid History of carotid artery stenosis. History of peripheral vascular disease. Severe aortic stenosis, S/P TAVR. 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 History of Anemia, iron deficiency. Continue oral iron. See note above regarding workup History of giant cell arteritis. History of mitral stenosis. COPD, stable. 60 pack year history quit 3 months ago, Continue Brovana, Pulmicort, daliresp, and spiriva. Continue PRN albuterol. Continue with continuous oxygen at 3 liters. Hypothyroidism. Continue levothyroxine. TSH 2.5 Hyperlipidemia. Continue pravastatin. Steroid-induced diabetes mellitus. Daily accuchecks. Continue glipizide. Secondary parathyroidism of renal origin. Depression. Continue effexor. History of diverticulitis. History of colon adenomas. Colostomy in place. History of breast carcinoma. History of basal cell carcinoma. Hx of Esophageal reflux. Continue PPI Osteoporosis--exacerbated by chronic steroid use. History of compression fracture of thoracolumbar vertebra. History of pseudogout. DVT prophylaxis. Will start her back on her Coumadin today. Monitor INR tomorrow.
[2017-02-05] MEDS: Ferrous Sulfate 325 MG Tab PO SCH (11:58)
[2017-02-05] MEDS ORDERED: Warfarin 5 MG Tab PO SCH (18:00)
[2017-02-05] MEDS: predniSONE 5 MG Tab PO SCH (18:10)
[2017-02-05] MEDS: Omeprazole 20 MG Cap.CR PO SCH (20:07)
[2017-02-05] MEDS: Calcium Citrate/Vitamin D3 315 MG-250 Unit Tab PO SCH (20:47)
[2017-02-05] MEDS: Simvastatin 20 MG Tab PO SCH (20:47)
[2017-02-06] MEDS: Levothyroxine 88 MCG Tab PO SCH (06:07)
[2017-02-06] MEDS: Arformoterol 15 MCG/2 ML Neb Soln NEB SCH (07:05)
[2017-02-06] MEDS: Budesonide 0.5 MG/2 ML Neb Susp INH SCH (07:40)
[2017-02-06] MEDS: Tiotropium Inhaler 18 MCG Inhalation Powder Cap Kit of 5 INH SCH (07:59)
[2017-02-06 08:07] LABS: CHLORIDE,CL 112 mmol/L (98-115); SODIUM,NA 147 mmol/L (136-145)
[2017-02-06] MEDS: Polyethylene Glycol 3350 Powder 17 GM Packet PO SCH (08:08)
[2017-02-06] MEDS: predniSONE 10 MG Tab PO SCH (08:25)
[2017-02-06] MEDS: Sotalol 80 MG Tab PO SCH (08:25)
[2017-02-06] MEDS: Cholecalciferol (Vitamin D3) 1,000 Unit Tab PO SCH (08:25)
[2017-02-06] MEDS: Bumetanide 1 MG Tab PO SCH (08:26)
[2017-02-06] MEDS: Docusate Sodium 100 MG Cap PO SCH (08:27)
[2017-02-06] MEDS: Venlafaxine 150 MG Cap.ER PO SCH (08:28)
[2017-02-06] MEDS: Potassium Chloride 10 MEQ Tab.ER PO SCH (08:29)
[2017-02-06] MEDS: Acetaminophen/HYDROcodone 325-5 MG Tab PO PRN (08:30)
[2017-02-06] MEDS: Metoprolol Tartrate 25 MG Tab PO SCH (08:30)
[2017-02-06] MEDS: Roflumilast 500 MCG Tab PO SCH (08:30)
[2017-02-06] MEDS: Lutein/Minerals/Vitamins A, C & E Tab PO SCH (08:35)
[2017-02-06] MEDS: Lisinopril 5 MG Tab PO SCH (08:35)
[2017-02-06 08:36] VITALS: BP 182/85
[2017-02-06] MEDS: Baclofen 10 MG Tab PO PRN (10:40)
[2017-02-06] MEDS: [UNRECOGNIZED DRUG - OTHER] TOP SCH (11:05)
[2017-02-06] MEDS: Ferrous Sulfate 325 MG Tab PO SCH (12:11)
--- NOTE | 2017-02-09 09:06 | DISCH ---
FINAL DIAGNOSES: 1. Left-sided back spasms, much improved. 2. Anemia, macrocytic, hyperchromic. 3. Mixed indices, possible combination of iron deficiency anemia and anemia of chronic disease. 4. Hypovolemia. 5. Hypernatremia, much improved. Sodium level acceptable, coming down. 6. Dehydration, much improved, now euvolemic. 7. Paroxysmal atrial fibrillation with controlled rhythm, stable. 8. Subtherapeutic INR. This will be assessed on Coumadin. 9. Heart failure with preserved ejection fraction, diastolic, not in acute exacerbation, echo October 2016, see report. 10.Chronic kidney disease, stage 3, stable. SECONDARY FINAL DIAGNOSES: 1. Hypertension, much improved, remains on lisinopril and Lopressor. 2. History of coronary artery stenosis. 3. History of peripheral vascular disease, status post transcatheter aortic valve replacement due to severe aortic stenosis. 4. Suyapa's granulomatosis with vasculitis. She is on chronic steroid therapy. 5. History of giant cell arteritis. 6. History of mitral stenosis. 7. Chronic obstructive pulmonary disease with a 60 pack-year history. 8. Hypothyroidism, stable. 9. Hyperlipidemia, on statin therapy. 10.Steroid-induced diabetes mellitus. Glipizide was discontinued or held. We will follow up on outpatient. 11.Secondary parathyroidism of renal origin. 12.Depression which is stable. 13.Gastroesophageal reflux disease, currently on proton pump inhibitor therapy. 14.Osteoporosis, exacerbated by chronic steroid use, acquired. BRIEF HISTORY: This 82-year-old female had come through the emergency department. She was seen at an [facility] by a [place] provider. She had come in for routine appointment; however, she was quite lethargic the prior evening and was complaining of quite severe back spasms, which she chronically has, acute on chronic. However, the provider was concerned because she was having episodes of confusion, so she was requested to go to the ED. ED workup did reveal possible urinary tract infection. She did have a white blood cell count of 15.3 with many bacteria. Evidence of left shift is due to segs and bands, neutrophilia. She was noted to be quite dehydrated with a BUN of 50 and a creatinine of 1.50, above her baseline at that time. She was admitted initially for IV fluids and antibiotics and due to her extensive past medical history for more close observation. HOSPITAL COURSE: The patient's hospital course went quite well. She was quite dehydrated on admission. She was given isotonic saline fluids initially for the first 24 hours, subsequently changed to more free water due to elevated sodium level. She had a sodium level of 150, this did improve on discharge. She never became hemodynamically unstable. We monitor her intake and output. She was treated for her urinary tract infection. She was given Rocephin in the ED. We did continue with this for a total of three doses. Her white count and her percentage neutrophils responded well. She never became feverish. She did have quite left-sided back spasms on admission, this did seem to improve. We restarted her baclofen. She was given nonsteroidal cream for her back rubs along with heat therapy. This worked well for her. She did need hydrocodone limited doses as needed. This worked well for her. She did not have any excessive sedation. Her confusion actually improved each day to where she was at baseline on discharge. We monitored for her ongoing dehydration. She was euvolemic on discharge. She did have some mild edema in her right arm likely due to her IV; however, there were no signs of infiltration or extravasation. She does have a significant history of smoking. We monitored for oxygen saturations, they were above baseline for her. She is on chronic oxygen. She was saline locked 24 hours prior to her discharge. She was tolerating her fluids. We did monitor for any occult bleeding. She did receive 1 unit of packed red blood cells. On admission, her hemoglobin was 8.6; however, after fluid hydration, it dropped to 7.4. Some concern regarding possible GI pathology, however, less likely; likely delusional; 1 unit of packed red blood cells was given due to her heart history and her respiratory status. It did correct to 8.9 with a corresponding hemoglobin adequately. Iron studies were done. See labs below. Her INR was assessed, it was hypercoagulated at 4.4 on admission. Coumadin was held. She was given concomitant Rocephin, likely due to a decrease in INR, subtherapeutic on discharge, we restarted this. This will be monitored carefully. She is back on her Coumadin on discharge. Vital signs on discharge include heart rate of 60, temperature 98.0, blood pressure 158/59, and O2 sats were 99%, this is on 3 L nasal cannula, respiratory rate 18. LABORATORY DATA: White count on admission 14.4 and on discharge 9.4, hemoglobin now 8.9, hematocrit 26.9, MCV and MCHC macrocytic, platelet count 157,000, neutrophils decreased to 72%, this is improvement. INR now is 1.1. She is back on Coumadin. Sodium decreasing to 147, potassium normal, BUN and creatinine now normal with estimated drug clearance of 37 with a GFR greater than 60. Her glucose since we held her glipizide is 85. Iron studies: Iron 101, TIBC low at 240, percent of transferrin normal at 42, ferritin 253, likely compensates for any acute phase reactant. Vitamin B12 is normal at 352, thyroid is 2.5. Peripheral smear does show spherocytes and schistocytes. percentages of retic is 5.7, indicative of good proper bone marrow response. Microbiology Report: Urine culture, mixed erica suggestive of contamination. Stool for occult blood was positive. However, she is hemodynamically stable. MEDICATION ADJUSTMENTS: 1. Glipizide was held during admission. We will not restart that until proper followup. 2. Bumex, she was getting b.i.d. that is changed to daily. We will monitor that on followup. DISPOSITION: The patient is ready for discharge. She is clinically stable. She will be discharged back to long-term care facility. She will have a followup appointment with myself next week early, likely Thursday. Recommendations on followup include considering restarting glipizide, monitor her Bumex for possible b.i.d. dosing. She will need labs, INR, CBC, and basic metabolic panel. Nursing staff is to monitor for any fever, shortness of breath, vomiting, any increasing confusion, or increase in pain or back spasms. We will see her in the clinic. MEDICAL DECISION MAKIN minutes was spent on this discharge planning process, pharmacy consultation. /[id number]/MODL MTDD
[2017-02-10] MEDS ORDERED: Warfarin 5 MG Tab PO SCH (18:00)
== END 2017-02-06 13:15 | DRG 690 ==
LOC: KA.ED 11:40 → KA.MS 13:40
PROVIDERS: ADMIT Physician Assistant Medical; ATTEND Nurse Practitioner Family
DX: N39.0 Urinary tract infection, site not specified (principal); E87.0 Hyperosmolality and hypernatremia; E87.1 Hypo-osmolality and hyponatremia; I13.0 Hypertensive heart and chronic kidney disease with heart failure and stage 1 through stage 4 chronic kidney disease, or unspecified chronic kidney disease; I50.32 Chronic diastolic (congestive) heart failure; I50.9 Heart failure, unspecified; N18.9 Chronic kidney disease, unspecified; E11.22 Type 2 diabetes mellitus with diabetic chronic kidney disease; M31.30 Wegener's granulomatosis without renal involvement; I48.91 Unspecified atrial fibrillation; E78.00 Pure hypercholesterolemia, unspecified; M62.830 Muscle spasm of back; E86.0 Dehydration; D64.9 Anemia, unspecified; M19.90 Unspecified osteoarthritis, unspecified site; G89.29 Other chronic pain; M54.9 Dorsalgia, unspecified; R41.0 Disorientation, unspecified; I48.0 Paroxysmal atrial fibrillation; Z79.01 Long term (current) use of anticoagulants; N18.3 Chronic kidney disease, stage 3 (moderate); E09.22 Drug or chemical induced diabetes mellitus with diabetic chronic kidney disease; T38.0X5A Adverse effect of glucocorticoids and synthetic analogues, initial encounter; Z79.84 Long term (current) use of oral hypoglycemic drugs; K21.9 Gastro-esophageal reflux disease without esophagitis; I65.29 Occlusion and stenosis of unspecified carotid artery; I73.9 Peripheral vascular disease, unspecified; I35.0 Nonrheumatic aortic (valve) stenosis; R79.1 Abnormal coagulation profile; D50.9 Iron deficiency anemia, unspecified; M31.6 Other giant cell arteritis; I05.0 Rheumatic mitral stenosis; J44.9 Chronic obstructive pulmonary disease, unspecified; E03.9 Hypothyroidism, unspecified; E78.5 Hyperlipidemia, unspecified; F32.9 Major depressive disorder, single episode, unspecified; Z93.3 Colostomy status; Z85.3 Personal history of malignant neoplasm of breast; M81.0 Age-related osteoporosis without current pathological fracture; M11.20 Other chondrocalcinosis, unspecified site; Z88.0 Allergy status to penicillin; Z88.8 Allergy status to other drugs, medicaments and biological substances; Z88.1 Allergy status to other antibiotic agents; Z79.899 Other long term (current) drug therapy; Z91.041 Radiographic dye allergy status; Z79.52 Long term (current) use of systemic steroids; Z95.2 Presence of prosthetic heart valve; Z87.891 Personal history of nicotine dependence
CPT/HCPCS: 80048; 81001; 85025; 96360; 99284; 99285; J7040; 36415; 36430; 82272; 82607; 82728; 82746; 82747; 82962; 83540; 83550; 84443; 85008; 85610; 86850; 86900; 86901; 86920; 86922; 87086; 93005; 94640; A9270-GY; J0696; J7030; P9016

== ENCOUNTER 2017-03-15 13:45 | Emergency (ER) | payer MEDICARE, BC ==
[2017-03-15] MEDS ORDERED: Ondansetron 4 MG/2 ML SDV IVPUSH ONE ×2 (14:06→15:46)
[2017-03-15] MEDS ORDERED: Sodium Chloride 0.9% 1,000 ML IV ONE (14:06)
[2017-03-15] MEDS ORDERED: Sodium Chloride 0.9% 5 ML Syringe FLUSH PRN (14:06)
--- NOTE | 2017-03-15 14:12 | EDM.PDOC ---
ED HPI GENERAL MEDICAL PROBLEM - General Chief Complaint: Gastrointestinal Problem Stated Complaint: FLU LIKE SYMPTOMS? Time Seen by Provider: 03/15/17 13:59 Source of Information: Reports: Patient, Family (DAUGHTER) History Limitations: Reports: No Limitations - History of Present Illness INITIAL COMMENTS - FREE TEXT/NARRATIVE: PT STATES SHE HAS FELT WEAK AND HAD NAUSEA FOR A FEW DAYS AND NOTICED WATERY STOOL IN COLOSTOMY BAG. HAS HAD COLOSTOMY FOR 2 YEARS. LOST APPETITE RECENTLY AND HAS NO ENERGY. DAUGHTER AT BEDSIDE. RESIDES AT LOCAL NURSING FACILITY. DENIES ABD PAIN, CP, SOB, OR BLOOD IN STOOL. 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 (see below) (GIVEN ZOFRAN YESTERDAY AT NURSING FACILITY) - Related Data Allergies Allergy/AdvReac Type Severity Reaction Status Date / Time penicillamine Allergy Severe Anaphylactic Verified 03/15/17 14:44 Shock Penicillins Allergy Severe Anaphylactic Verified 03/15/17 14:44 Shock Cephalosporins Allergy Unknown Cannot Verified 03/15/17 14:44 Remember aspirin Allergy Other Verified 03/15/17 14:44 Carbapenems Allergy Cannot Verified 03/15/17 14:44 Remember divalproex sodium Allergy Delusions Verified 03/15/17 14:44 [From Depakote] contrast Allergy Unknown Chest Pain Uncoded 03/15/17 14:44 Home Meds: Home Meds Cholecalciferol (Vitamin D3) [Vitamin D3] 1,000 unit PO DAILY@0800 09/27/13 [ History] Levothyroxine [Synthroid] 88 mcg PO DAILY@0600 09/27/13 [History] Lutein/Minerals/Vit A,C & E [I-Silvina] 1 cap PO DAILY@0800 06/24/14 [History] Pravastatin [Pravachol] 40 mg PO BEDTIME 06/24/14 [History] Polyethylene Glycol 3350 [MiraLAX] 17 gm PO DAILY 08/24/14 [History] Albuterol Sulfate [Albuterol Sulfate HFA] 2 puff INH Q4HR PRN 08/28/14 [History] Omeprazole [Prilosec] 40 mg PO DAILY@2000 01/20/15 [History] Ferrous Sulfate 325 mg PO DAILY@1200 10/15/15 [History] Venlafaxine [Effexor XR] 150 mg PO DAILY 04/12/15 [History] Docusate Sodium [Colace] 100 mg PO BID 06/27/15 [History] Albuterol [Proventil Neb Soln] 2.5 mg NEB QID PRN 02/25/16 [History] Potassium Chloride [K-Tab ER] 10 meq PO DAILY 02/25/16 [History] Warfarin [Coumadin] 5 mg PO SUMOWETHFRSA@18 05/11/16 [History] Dapsone 100 mg PO DAILY 06/19/16 [History] Lisinopril [Prinivil] 5 mg PO DAILY 06/19/16 [History] Acetaminophen/HYDROcodone [[place] 325-5 MG] 1 - 2 tab PO Q6H PRN 07/15/16 [ History] predniSONE [Prednisone] 5 mg PO DAILY@1700 07/17/16 [History] predniSONE [Prednisone] 10 mg PO WITHBREAKFAST 07/17/16 [History] Calcium Phosphate Trib/Vit D3 [Citracal + D3 Gummies] 2 tab PO BEDTIME 11/08/16 [History] Metoprolol Tartrate 12.5 mg PO BID 11/08/16 [History] Sotalol HCl [Sotalol] 120 mg PO DAILY #30 tablet 11/12/16 [Rx] Clindamycin HCl 600 mg PO DAILY PRN 01/16/17 [History] Ondansetron [Zofran] 4 mg PO Q4H PRN 01/16/17 [History] Warfarin [Coumadin] 7.5 mg PO TU@1800 01/16/17 [History] Arformoterol [Brovana] 15 mcg NEB BIDRT #60 neb 01/20/17 [Rx] Roflumilast [Daliresp] 500 mcg PO DAILY #30 tablet 01/20/17 [Rx] Baclofen 5 - 10 mg PO TID PRN 02/03/17 [History] Budesonide [Pulmicort] 0.5 mg INH BID 02/03/17 [History] Rup Rub Analgesic Cream 1 applic TOP BID PRN 02/03/17 [History] Tiotropium [Spiriva HandiHaler] 18 mcg INH DAILY 02/03/17 [History] Bumetanide 0.5 mg PO DAILY #30 02/06/17 [Rx] Past Medical History HEENT History: Reports: Hard of Hearing, Impaired Vision Cardiovascular History: Reports: Afib, Heart Failure, Heart Valve Replacement, High Cholesterol, Hypertension, [place], SOB on Exertion, Other (See Below) Other Cardiovascular History: mitral stenosis,aortic stenosis,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,vasculitis Respiratory History: Reports: COPD, Pneumonia, Recurrent, SOB Other Respiratory History: pleural effusions Gastrointestinal History: Reports: Bowel Obstruction, Diverticulosis, GERD Genitourinary History: Reports: Chronic Renal Insuffiency, Renal Disease, Other (See Below) Other Genitourinary History: acquired cyst of kidney 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, Other OB/BYN History: 6 daughters, live term births Musculoskeletal History: Reports: Arthritis, Back Pain, Chronic, Osteoporosis, Other (See Below) Other Musculoskeletal History: compression fracture of thoracolumbar vertebra Neurological History: Reports: Migraines, Other (See Below) Other Neuro History: new onset confusion starting 06/18/2016 Psychiatric History: Reports: Depression Endocrine/Metabolic History: Reports: Diabetes, Type II, Hypothyroidism, Osteoporosis Hematologic History: Reports: Anemia, Blood Transfusion(s) Immunologic History: Reports: Other (See Below) Other Immunologic History: chronic steroid use Oncologic (Cancer) History: Reports: Breast, Colon Dermatologic History: Reports: Venous Stasis Dermatitis - Infectious Disease History Infectious Disease History: Reports: Chicken Pox, Measles, Rheumatic Fever - Past Surgical History Head Surgeries/Procedures: Reports: None HEENT Surgical History: Reports: Cataract Surgery Cardiovascular Surgical History: Reports: Valve Replacement GI Surgical History: Reports: Colostomy Neurological Surgical History: Reports: Other (See Below) Musculoskeletal Surgical History: Reports: Other (See Below) Oncologic Surgical History: Reports: Mastectomy, Other (See Below) Social & Family History - Family History Family Medical History: Noncontributory HEENT: Reports: None Cardiac: Reports: None Respiratory: Reports: None GI: Reports: None : Reports: None OBGYN: Reports: None Musculoskeletal: Reports: None Neurological: Reports: None Psychiatric: Reports: None Endocrine/Metabolic: Reports: None Hematologic: Reports: None Immunologic: Reports: None Dermatologic: Reports: None Oncologic: Reports: Other (See Below) Other Oncologic Family History: parents had ca - Tobacco Use Smoking Status *Q: Former Smoker Years of Tobacco use: 40 Packs/Tins Daily: 0.5 Used Tobacco, but Quit: Yes Month Tobacco Last Used: dec Second Hand Smoke Exposure: No - Caffeine Use Caffeine Use: Reports: Coffee, Soda - Alcohol Use Days Per Week of Alcohol Use: 0 - Recreational Drug Use Recreational Drug Use: No Recreational Drug Last Use: Coffee 3 cups of coffee per day, very occasional soda - Living Situation & Occupation Living situation: Reports: Occupation: Retired ED ROS GENERAL - Review of Systems Review Of Systems: ROS reveals no pertinent complaints other than HPI. Constitutional: Reports: Malaise, Weakness, Fatigue HEENT: Reports: No Symptoms Respiratory: Reports: No Symptoms Cardiovascular: Reports: No Symptoms Endocrine: Reports: No Symptoms GI/Abdominal: Reports: Diarrhea, Nausea, Vomiting : Reports: No Symptoms Musculoskeletal: Reports: No Symptoms Skin: Reports: No Symptoms Neurological: Reports: No Symptoms Psychiatric: Reports: No Symptoms Hematologic/Lymphatic: Reports: No Symptoms Immunologic: Reports: No Symptoms ED EXAM, GI/ABD - Physical Exam Exam: See Below Exam Limited By: No Limitations General Appearance: Alert, WD/WN, No Apparent Distress Eyes: Bilateral: Normal Appearance Nose: Normal Inspection, Normal Mucosa, No Blood Throat/Mouth: Normal Inspection, Normal Oropharynx, No Airway Compromise Head: Atraumatic, Normocephalic Neck: Normal Inspection Respiratory/Chest: No Respiratory Distress, Lungs Clear, Normal Breath Sounds, No Accessory Muscle Use, Chest Non-Tender Cardiovascular: Regular Rate, Rhythm, Systolic Murmur GI/Abdominal Exam: Normal Bowel Sounds, Soft, Non-Tender, Other (COLOSTOMY BAG WITH BROWN WATERY STOOL) Back Exam: Normal Inspection. No: CVA Tenderness (L), CVA Tenderness (R) Extremities: Normal Inspection, No Pedal Edema Neurological: Alert, Oriented, Normal Cognition Psychiatric: Normal Affect, Normal Mood Skin Exam: Warm, Dry, Intact, Normal Color, No Rash Course - Orders/Labs/Meds Orders: Active Orders 24 hr Category Date Time Status Peripheral IV Care [RC] . DIRECTED Care 03/15/17 14:06 Ordered CBC WITH AUTO DIFF [HEME] Stat Lab 03/15/17 14:05 Ordered COMPREHENSIVE METABOLIC PN,CMP [CHEM] Stat Lab 03/15/17 14:05 Ordered UA W/MICROSCOPIC [URIN] Stat Lab 03/15/17 14:05 Uncollected Ondansetron [Zofran] Med 03/15/17 14:06 Once 4 mg IVPUSH ONETIME ONE Sodium Chloride 0.9% @ 999 MLS/HR (1000ml) Med 03/15/17 14:06 Ordered Sodium Chloride 0.9% [Normal Saline] 1,000 ml IV .BOLUS Sodium Chloride 0.9% [Syrex Flush] Med 03/15/17 14:06 Ordered 5 ml FLUSH Q8HR PRN Peripheral IV Insertion Adult [OM.PC] Routine Oth 03/15/17 14:06 Ordered - Re-Assessments/Exams Free Text/Narrative Re-Assessment/Exam: 03/15/17 15:47 PT AFEBRILE, NONTOXIC APPEARING, VSS. WILL RETURN TO NURSING FACILITY. [facility]MON[place] PROVIDER AWARE Departure - Departure Time of Disposition: 15:48 Disposition: DC/Tfer to Medicaid Nur Fac 64 Condition: Good Clinical Impression: Diarrhea, Nausea - Discharge Information Instructions: Nausea and Vomiting, Adult, [id number], Diarrhea, Adult, Easy- to-Read Referrals: Aunrag Telles [employer]PERINTEND[employer] [Primary Care Provider] - Forms: ED Department Discharge Additional Instructions: FOLLOW UP AT [facility] IN 1-2 DAYS - My Orders Last 24 Hours: My Active Orders 03/15/17 14:05 CBC WITH AUTO DIFF [HEME] Stat COMPREHENSIVE METABOLIC PN,CMP [CHEM] Stat UA W/MICROSCOPIC [URIN] Stat 03/15/17 14:06 Peripheral IV Care [RC] . DIRECTED Ondansetron [Zofran] 4 mg IVPUSH ONETIME ONE Sodium Chloride 0.9% @ 999 MLS/HR (1000ml) Sodium Chloride 0.9% [Normal Saline] 1,000 ml IV .BOLUS Sodium Chloride 0.9% [Syrex Flush] 5 ml FLUSH Q8HR PRN Peripheral IV Insertion Adult [OM.PC] Routine - Assessment/Plan Last 24 Hours: My Active Orders 03/15/17 14:05 CBC WITH AUTO DIFF [HEME] Stat COMPREHENSIVE METABOLIC PN,CMP [CHEM] Stat UA W/MICROSCOPIC [URIN] Stat 03/15/17 14:06 Peripheral IV Care [RC] . DIRECTED Ondansetron [Zofran] 4 mg IVPUSH ONETIME ONE Sodium Chloride 0.9% @ 999 MLS/HR (1000ml) Sodium Chloride 0.9% [Normal Saline] 1,000 ml IV .BOLUS Sodium Chloride 0.9% [Syrex Flush] 5 ml FLUSH Q8HR PRN Peripheral IV Insertion Adult [OM.PC] Routine Assessment:: diarrhea Plan: RETURN TO NURSING FACILITY
[2017-03-15 17:48] VITALS: BP 132/48
== END 2017-03-15 16:50 ==
LOC: KA.ED 13:45
DX: R19.7 Diarrhea, unspecified (principal); R11.0 Nausea; I48.91 Unspecified atrial fibrillation; I13.0 Hypertensive heart and chronic kidney disease with heart failure and stage 1 through stage 4 chronic kidney disease, or unspecified chronic kidney disease; I50.9 Heart failure, unspecified; N18.9 Chronic kidney disease, unspecified; E78.00 Pure hypercholesterolemia, unspecified; K21.9 Gastro-esophageal reflux disease without esophagitis; J44.9 Chronic obstructive pulmonary disease, unspecified; I25.2 Old myocardial infarction; M19.90 Unspecified osteoarthritis, unspecified site; M81.0 Age-related osteoporosis without current pathological fracture; F32.9 Major depressive disorder, single episode, unspecified; E11.9 Type 2 diabetes mellitus without complications; E03.9 Hypothyroidism, unspecified; Z88.5 Allergy status to narcotic agent; Z88.8 Allergy status to other drugs, medicaments and biological substances; Z88.0 Allergy status to penicillin; Z91.041 Radiographic dye allergy status; Z79.01 Long term (current) use of anticoagulants; Z79.899 Other long term (current) drug therapy; Z87.01 Personal history of pneumonia (recurrent); Z87.891 Personal history of nicotine dependence
CPT/HCPCS: 36415; 80053; 81001; 85025; 85610; 85730; 96361; 96374; 96376; 99285; J2405; J7030; 99284

== ENCOUNTER 2017-03-16 17:00 | Inpatient (IN) | payer MEDICARE, BC ==
[2017-03-16] MEDS ORDERED: Ondansetron 4 MG/2 ML SDV IVPUSH ONE (17:12)
[2017-03-16] MEDS ORDERED: Sodium Chloride 0.9% 1,000 ML IV ONE (17:12)
--- NOTE | 2017-03-16 17:28 | EDM.PDOC ---
ED HPI GENERAL MEDICAL PROBLEM - General Chief Complaint: Gastrointestinal Problem Stated Complaint: NAUSEA Time Seen by Provider: 03/16/17 17:10 Source of Information: Reports: Patient History Limitations: Reports: No Limitations - History of Present Illness INITIAL COMMENTS - FREE TEXT/NARRATIVE: PT SEEN HERE LAST NIGHT FOR NAUSEA AND DIARRHEA. NOW DEVELOPED ABD PAIN AND NAUSEA AND SENT FROM NURSING FACILITY FOR EVALUATION. SEVERAL OTHER RESIDENTS OF FACILITY HAS SAME SYMPTOMS. LAB WORK AND UA FROM LAST NIGHT ARE WNL. DENIES FEVER, CP, SOB, OR BLOOD IN COLOSTOMY BAG Onset: Gradual Duration: Day(s): Location: Reports: Abdomen Quality: Reports: Ache Severity: Mild Improves with: Reports: None Worsens with: Reports: Eating Associated Symptoms: Reports: Nausea/Vomiting Treatments SUPERVISOR DUMPING: Reports: Other Medication(s) Other Treatments SUPERVISOR DUMPING: zofran - Related Data Allergies Allergy/AdvReac Type Severity Reaction Status Date / Time penicillamine Allergy Severe Anaphylactic Verified 03/16/17 18:06 Shock Penicillins Allergy Severe Anaphylactic Verified 03/16/17 18:06 Shock Cephalosporins Allergy Unknown Cannot Verified 03/16/17 18:06 Remember aspirin Allergy Other Verified 03/16/17 18:06 Carbapenems Allergy Cannot Verified 03/16/17 18:06 Remember divalproex sodium Allergy Delusions Verified 03/16/17 18:06 [facility] Home Meds: Home Meds Cholecalciferol (Vitamin D3) [Vitamin D3] 1,000 unit PO DAILY@0800 09/27/13 [ History] Levothyroxine [Synthroid] 88 mcg PO DAILY@0600 09/27/13 [History] Lutein/Minerals/Vit A,C & E [I-Silvina] 1 cap PO DAILY@0800 06/24/14 [History] Pravastatin [Pravachol] 40 mg PO BEDTIME 06/24/14 [History] Polyethylene Glycol 3350 [MiraLAX] 17 gm PO DAILY 08/24/14 [History] Albuterol Sulfate [Albuterol Sulfate HFA] 2 puff INH Q4HR PRN 08/28/14 [History] Omeprazole [Prilosec] 40 mg PO DAILY@199901/20/15 [History] Ferrous Sulfate 325 mg PO DAILY@1200 04/12/15 [History] Venlafaxine [Effexor XR] 150 mg PO DAILY 04/12/15 [History] Docusate Sodium [Colace] 100 mg PO BID 06/27/15 [History] Albuterol [Proventil Neb Soln] 2.5 mg NEB QID PRN 02/25/16 [History] Potassium Chloride [K-Tab ER] 10 meq PO DAILY 02/25/16 [History] Warfarin [Coumadin] 5 mg PO DAILY 05/11/16 [History] Dapsone 100 mg PO DAILY 06/19/16 [History] Lisinopril [Prinivil] 5 mg PO DAILY 06/19/16 [History] Acetaminophen/HYDROcodone [Astor 325-5 MG] 1 - 2 tab PO Q6H PRN 07/15/16 [ History] predniSONE [Prednisone] 5 mg PO DAILY@1700 07/17/16 [History] predniSONE [Prednisone] 10 mg PO WITHBREAKFAST 07/17/16 [History] Metoprolol Tartrate 12.5 mg PO BID 11/08/16 [History] Sotalol HCl [Sotalol] 120 mg PO DAILY #30 tablet 11/12/16 [Rx] Clindamycin HCl 600 mg PO DAILY PRN 01/16/17 [History] Ondansetron [Zofran] 4 mg PO Q4H PRN 01/16/17 [History] Warfarin [Coumadin] 2.5 mg PO 01/16/17 [History] Arformoterol [Brovana] 15 mcg NEB BIDRT #60 neb 01/20/17 [Rx] Roflumilast [Daliresp] 500 mcg PO DAILY #30 tablet 01/20/17 [Rx] Baclofen 5 - 10 mg PO TID PRN 02/03/17 [History] Budesonide [Pulmicort] 0.5 mg INH BID 02/03/17 [History] Rup Rub Analgesic Cream 1 applic TOP BID PRN 02/03/17 [History] Tiotropium [Spiriva HandiHaler] 18 mcg INH DAILY 02/03/17 [History] Bumetanide 0.5 mg PO BID 03/15/17 [History] Past Medical History HEENT History: Reports: Hard of Hearing, Impaired Vision Cardiovascular History: Reports: Afib, Heart Failure, Heart Valve Replacement, High Cholesterol, Hypertension, ID, SOB on Exertion, Other (See Below) Other Cardiovascular History: mitral stenosis,aortic stenosis,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,vasculitis Respiratory History: Reports: COPD, Pneumonia, Recurrent, SOB Other Respiratory History: pleural effusions Gastrointestinal History: Reports: Bowel Obstruction, Diverticulosis, GERD Genitourinary History: Reports: Chronic Renal Insuffiency, Renal Disease, Other (See Below) Other Genitourinary History: acquired cyst of kidney 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, 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 OB/BYN History: 6 daughters, live term births Musculoskeletal History: Reports: Arthritis, Back Pain, Chronic, Osteoporosis, Other (See Below) Other Musculoskeletal History: compression fracture of thoracolumbar vertebra Neurological History: Reports: Migraines, Other (See Below) Other Neuro History: new onset confusion starting 06/18/2016 Psychiatric History: Reports: Depression Endocrine/Metabolic History: Reports: Diabetes, Type II, Hypothyroidism, Osteoporosis Hematologic History: Reports: Anemia, Blood Transfusion(s) Immunologic History: Reports: Other (See Below) Other Immunologic History: chronic steroid use Oncologic (Cancer) History: Reports: Breast, Colon Dermatologic History: Reports: Venous Stasis Dermatitis Other Dermatologic History: discolored skin from chronic steroid use - Infectious Disease History Infectious Disease History: Reports: Chicken Pox, Measles, Rheumatic Fever - Past Surgical History Head Surgeries/Procedures: Reports: None HEENT Surgical History: Reports: Cataract Surgery Cardiovascular Surgical History: Reports: Valve Replacement GI Surgical History: Reports: Colostomy Neurological Surgical History: Reports: Other (See Below) Musculoskeletal Surgical History: Reports: Other (See Below) Oncologic Surgical History: Reports: Mastectomy, Other (See Below) Social & Family History - Family History Family Medical History: Noncontributory HEENT: Reports: None Cardiac: Reports: None Respiratory: Reports: None GI: Reports: None : Reports: None OBGYN: Reports: None Musculoskeletal: Reports: None Neurological: Reports: None Psychiatric: Reports: None Endocrine/Metabolic: Reports: None Hematologic: Reports: None Immunologic: Reports: None Dermatologic: Reports: None Oncologic: Reports: Other (See Below) Other Oncologic Family History: parents had ca - Tobacco Use Smoking Status *Q: Former Smoker Years of Tobacco use: 40 Packs/Tins Daily: 0.5 Used Tobacco, but Quit: Yes Month Tobacco Last Used: dec Second Hand Smoke Exposure: No - Caffeine Use Caffeine Use: Reports: Coffee, Soda - Alcohol Use Days Per Week of Alcohol Use: 0 - Recreational Drug Use Recreational Drug Use: No Recreational Drug Last Use: Coffee 3 cups of coffee per day, very occasional soda - Living Situation & Occupation Living situation: Reports: Occupation: Retired ED ROS GENERAL - Review of Systems Review Of Systems: ROS reveals no pertinent complaints other than HPI. Constitutional: Reports: No Symptoms HEENT: Reports: No Symptoms Respiratory: Reports: No Symptoms Cardiovascular: Reports: No Symptoms Endocrine: Reports: No Symptoms GI/Abdominal: Reports: Abdominal Pain, Diarrhea, Nausea : Reports: No Symptoms Musculoskeletal: Reports: No Symptoms Skin: Reports: No Symptoms Neurological: Reports: No Symptoms Psychiatric: Reports: No Symptoms Hematologic/Lymphatic: Reports: Easy Bruising Immunologic: Reports: No Symptoms ED EXAM, GI/ABD - Physical Exam Exam: See Below Exam Limited By: No Limitations General Appearance: Alert, WD/WN, No Apparent Distress Nose: Normal Inspection, No Blood Throat/Mouth: Normal Inspection, Normal Oropharynx, No Airway Compromise Head: Atraumatic, Normocephalic Neck: Normal Inspection Respiratory/Chest: No Respiratory Distress, Lungs Clear, Normal Breath Sounds, No Accessory Muscle Use, Chest Non-Tender Cardiovascular: Regular Rate, Rhythm GI/Abdominal Exam: Normal Bowel Sounds, Soft, Tender (MILDLY DIFFUSELY), Abnormal Bowel Sounds (hyperactive) Back Exam: Normal Inspection. No: CVA Tenderness (L), CVA Tenderness (R) Neurological: Alert, Oriented, Normal Cognition Psychiatric: Normal Affect, Normal Mood Skin Exam: Warm, Dry, Intact, Normal Color Course - Vital Signs Last Recorded V/S: Last Vital Signs Temp 98.7 F 03/16/17 17:09 Pulse 84 03/16/17 17:09 Resp 26 H 03/16/17 17:09 BP 126/60 03/16/17 17:09 Pulse Ox - Orders/Labs/Meds Orders: Active Orders 24 hr Category Date Time Status Peripheral IV Care [RC] . DIRECTED Care 03/16/17 17:13 Ordered Abdomen Pelvis w Cont [CT] Stat Exams 03/16/17 17:12 Ordered Sodium Chloride 0.9% @ 999 MLS/HR (1000ml) Med 03/16/17 17:12 Ordered Sodium Chloride 0.9% [Normal Saline] 1,000 ml IV .BOLUS Sodium Chloride 0.9% [Syrex Flush] Med 03/16/17 17:12 Ordered 5 ml FLUSH Q8HR PRN Peripheral IV Insertion Adult [OM.PC] Routine Oth 03/16/17 17:12 Ordered Medication Orders Sodium Chloride (Normal Saline) 1,000 mls @ 999 mls/hr IV .BOLUS ONE Stop: 03/16/17 18:12 Sodium Chloride (Syrex Flush) 5 ml FLUSH Q8HR PRN PRN Reason: Keep Vein Open Meds: Medications Generic Name Dose Route Start Last Admin Trade Name Freq PRN Reason Stop Dose Admin Sodium Chloride 1,000 mls @ 999 mls/hr 03/16/17 17:12 Normal Saline IV 03/16/17 18:12 .BOLUS ONE Sodium Chloride 5 ml 03/16/17 17:12 Syrex Flush FLUSH Q8HR PRN Keep Vein Open Discontinued Medications Generic Name Dose Route Start Last Admin Trade Name Freq PRN Reason Stop Dose Admin Ondansetron HCl 4 mg 03/16/17 17:12 Zofran IVPUSH 03/16/17 17:13 ONETIME ONE - Radiology Interpretation Free Text/Narrative:: CT ABD/PELVIS PER RADIOLOGY SHOWS GAS IN BLADDER AND CONCERN FOR POSSIBLE SMALL BOWEL / URINARY BLADDER FISTULIZATION OR UTI CT Results Date: 03/16/17 - Re-Assessments/Exams Free Text/Narrative Re-Assessment/Exam: 03/16/17 18:26 PT AFEBRILE, NONTOXIC APPEARING, VSS, DAUGHTERS AT BEDSIDE. DISCUSSED CASE WITH DR BERNARD AND WILL ADMIT AND FOLLOW Departure - Departure Time of Disposition: 18:28 Disposition: Admitted As Inpatient 68 Condition: Fair Clinical Impression: Abdominal pain, UTI, Urinary tract infectious disease, Vomiting Diarrhea Qualifiers: Diarrhea type: unspecified type Qualified Code(s): R19.7 - Diarrhea, unspecified - Discharge Information Referrals: Karen Terry MD [Primary Care Provider] - - My Orders Last 24 Hours: My Active Orders 03/16/17 17:12 Abdomen Pelvis w Cont [CT] Stat Sodium Chloride 0.9% @ 999 MLS/HR (1000ml) Sodium Chloride 0.9% [Normal Saline] 1,000 ml IV .BOLUS Sodium Chloride 0.9% [Syrex Flush] 5 ml FLUSH Q8HR PRN Peripheral IV Insertion Adult [OM.PC] Routine 03/16/17 17:13 Peripheral IV Care [RC] . DIRECTED - Assessment/Plan Last 24 Hours: My Active Orders 03/16/17 17:12 Abdomen Pelvis w Cont [CT] Stat Sodium Chloride 0.9% @ 999 MLS/HR (1000ml) Sodium Chloride 0.9% [Normal Saline] 1,000 ml IV .BOLUS Sodium Chloride 0.9% [Syrex Flush] 5 ml FLUSH Q8HR PRN Peripheral IV Insertion Adult [OM.PC] Routine 03/16/17 17:13 Peripheral IV Care [RC] . DIRECTED Assessment:: ABDOMINAL PAIN Plan: ADMIT INPATIENT
[2017-03-16] MEDS: Sodium Chloride 0.9% 5 ML Syringe FLUSH PRN (18:57)
[2017-03-16] MEDS ORDERED: Albuterol 0.083% 2.5 MG/3 ML Neb Soln NEB PRN (20:32)
[2017-03-16] MEDS ORDERED: Acetaminophen/HYDROcodone 325-5 MG Tab PO PRN (20:32)
[2017-03-16] MEDS ORDERED: Warfarin 5 MG Tab PO SCH (20:45)
[2017-03-16] MEDS ORDERED: Sodium Chloride 0.9% 1,000 ML IV SCH (21:00)
--- NOTE | 2017-03-16 21:08 | PCM.HP ---
H&P History of Present Illness - General Date of Service: 03/16/17 Admit Problem/Dx: Abdominal pain Source of Information: Patient, Family, Old Records History Limitations: Reports: No Limitations - History of Present Illness Initial Comments - Free Text/Narative: Mrs. Perla was in her usual state of health until about one week ago when she began having intermittent abdominal pain, nausea, and diarrhea. She has had a decreased appetite that has been worsening. She came into the ED the evening of 03/15/17 for these symptoms and evaluation was reassuring and she was discharged back to [facility] in [place]. Today, she developed worsening abdominal pain and diarrhea so returned to the ED today. CT of the abdomen/pelvis was performed showing concern regarding gas in the urinary bladder for which the ED provider was concerned about fistulization with the bowel and I was called for admission given her recurrent/intractable symptoms and this concern. Upon my evaluation of her this evening, she reports ongoing nausea slightly improved from arrival in the ED. She has been receiving prn Zofran at [facility] with minimal improvement in her nausea. She reports one small episode of emesis in the last few days. She has also had increased output from her colostomy that is loose, a change from baseline for her. She denies any blood in the stool. Report received from her daughters are that there are several residents at [facility] with similar symptoms. She denies any other symptoms; see ROS. Upper Mid-Anterior Abdomen Pain Score (Numeric/FACES): 3 - Related Data Allergies/Adverse Reactions: Allergies Allergy/AdvReac Type Severity Reaction Status Date / Time penicillamine Allergy Severe Anaphylactic Verified 03/16/17 18:06 Shock Penicillins Allergy Severe Anaphylactic Verified 03/16/17 18:06 Shock Cephalosporins Allergy Unknown Cannot Verified 03/16/17 18:06 Remember aspirin Allergy Other Verified 03/16/17 18:06 Carbapenems Allergy Cannot Verified 03/16/17 18:06 Remember divalproex sodium Allergy Delusions Verified 03/16/17 18:06 [facility] Home Medications: Home Meds Cholecalciferol (Vitamin D3) [Vitamin D3] 1,000 unit PO DAILY@0800 09/27/13 [ History] Levothyroxine [Synthroid] 88 mcg PO DAILY@0600 09/27/13 [History] Lutein/Minerals/Vit A,C & E [I-Silvina] 1 cap PO DAILY@0800 06/24/14 [History] Pravastatin [Pravachol] 40 mg PO BEDTIME 06/24/14 [History] Polyethylene Glycol 3350 [MiraLAX] 17 gm PO DAILY 08/24/14 [History] Albuterol Sulfate [Albuterol Sulfate HFA] 2 puff INH Q4HR PRN 08/28/14 [History] Omeprazole [Prilosec] 40 mg PO DAILY@2000 01/20/15 [History] Ferrous Sulfate 325 mg PO DAILY@1200 04/12/15 [History] Venlafaxine [Effexor XR] 150 mg PO DAILY 04/12/15 [History] Docusate Sodium [Colace] 100 mg PO BID 06/27/15 [History] Albuterol [Proventil Neb Soln] 2.5 mg NEB QID PRN 02/25/16 [History] Potassium Chloride [K-Tab ER] 10 meq PO DAILY 02/25/16 [History] Warfarin [Coumadin] 5 mg PO DAILY 05/11/16 [History] Dapsone 100 mg PO DAILY 06/19/16 [History] Lisinopril [Prinivil] 5 mg PO DAILY 06/19/16 [History] Acetaminophen/HYDROcodone [[place] 325-5 MG] 1 - 2 tab PO Q6H PRN 07/15/16 [ History] predniSONE [Prednisone] 5 mg PO DAILY@1700 07/17/16 [History] predniSONE [Prednisone] 10 mg PO WITHBREAKFAST 07/17/16 [History] Metoprolol Tartrate 12.5 mg PO BID 11/08/16 [History] Sotalol HCl [Sotalol] 120 mg PO DAILY #30 tablet 11/12/16 [Rx] Clindamycin HCl 600 mg PO DAILY PRN 01/16/17 [History] Ondansetron [Zofran] 4 mg PO Q4H PRN 01/16/17 [History] Warfarin [Coumadin] 2.5 mg PO Q7D 01/16/17 [History] Arformoterol [Brovana] 15 mcg NEB BIDRT #60 neb 01/20/17 [Rx] Roflumilast [Daliresp] 500 mcg PO DAILY #30 tablet 01/20/17 [Rx] Baclofen 5 - 10 mg PO TID PRN 02/03/17 [History] Budesonide [Pulmicort] 0.5 mg INH BID 02/03/17 [History] Rup Rub Analgesic Cream 1 applic TOP BID PRN 02/03/17 [History] Tiotropium [Spiriva HandiHaler] 18 mcg INH DAILY 02/03/17 [History] Bumetanide 0.5 mg PO BID 03/15/17 [History] Past Medical History HEENT History: Reports: Hard of Hearing, Impaired Vision Cardiovascular History: Reports: Afib, Heart Failure, Heart Valve Replacement, High Cholesterol, Hypertension, [place], SOB on Exertion, Other (See Below) Other Cardiovascular History: mitral stenosis,aortic stenosis,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,vasculitis Respiratory History: Reports: COPD, Pneumonia, Recurrent, SOB Other Respiratory History: pleural effusions Gastrointestinal History: Reports: Bowel Obstruction, Diverticulosis, GERD Genitourinary History: Reports: Chronic Renal Insuffiency, Renal Disease, Other (See Below) Other Genitourinary History: acquired cyst of kidney [employer] 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, Other OB/BYN History: 6 daughters, live term births Musculoskeletal History: Reports: Arthritis, Back Pain, Chronic, Osteoporosis, Other (See Below) Other Musculoskeletal History: compression fracture of thoracolumbar vertebra Neurological History: Reports: Migraines, Other (See Below) Other Neuro History: new onset confusion starting 06/18/2016 Psychiatric History: Reports: Depression Endocrine/Metabolic History: Reports: Diabetes, Type II, Hypothyroidism, Osteoporosis Hematologic History: Reports: Anemia, Blood Transfusion(s) Immunologic History: Reports: Other (See Below) Other Immunologic History: chronic steroid use Oncologic (Cancer) History: Reports: Breast, Colon Dermatologic History: Reports: Venous Stasis Dermatitis Other Dermatologic History: discolored skin from chronic steroid use - Infectious Disease History Infectious Disease History: Reports: Chicken Pox, Measles, Rheumatic Fever - Past Surgical History Head Surgeries/Procedures: Reports: None HEENT Surgical History: Reports: Cataract Surgery Cardiovascular Surgical History: Reports: Valve Replacement GI Surgical History: Reports: Colostomy Neurological Surgical History: Reports: Other (See Below) Musculoskeletal Surgical History: Reports: Other (See Below) Oncologic Surgical History: Reports: Mastectomy, Other (See Below) Social & Family History - Family History Family Medical History: Noncontributory HEENT: Reports: None Cardiac: Reports: None Respiratory: Reports: None GI: Reports: None : Reports: None OBGYN: Reports: None Musculoskeletal: Reports: None Neurological: Reports: None Psychiatric: Reports: None Endocrine/Metabolic: Reports: None Hematologic: Reports: None Immunologic: Reports: None Dermatologic: Reports: None Oncologic: Reports: Other (See Below) Other Oncologic Family History: parents had ca - Tobacco Use Smoking Status *Q: Former Smoker Years of Tobacco use: 40 Packs/Tins Daily: 0.5 Used Tobacco, but Quit: Yes Month Tobacco Last Used: dec Second Hand Smoke Exposure: No - Caffeine Use Caffeine Use: Reports: Coffee, Soda - Alcohol Use Days Per Week of Alcohol Use: 0 - Recreational Drug Use Recreational Drug Use: No Recreational Drug Last Use: Coffee 3 cups of coffee per day, very occasional soda - Living Situation & Occupation Living situation: Reports: Occupation: Retired H&P Review of Systems - Review of Systems: Review Of Systems: See Below General: Reports: Malaise, Weakness, Fatigue, Decreased Appetite, Weight Loss. Denies: Fever, Chills HEENT: Denies: Headaches, Sinus Congestion, Visual Changes Pulmonary: Denies: Shortness of Breath, Wheezing, Cough Cardiovascular: Denies: Chest Pain, Palpitations, Edema, Lightheadedness Gastrointestinal: Reports: Abdominal Pain, Anorexia, Diarrhea, Decreased Appetite, Nausea, Vomiting (x1). Denies: Black Stool, Bloody Stool, Constipation, Difficulty Swallowing, Hematemesis, Melena Genitourinary: Reports: Hematuria (this morning following catheterization in ED last night). Denies: Dysuria, Frequency, Burning, Pain Musculoskeletal: Reports: Other (no change in chronic MSK symptoms) Skin: Denies: Diaphoresis, Rash Psychiatric: Denies: Confusion, Mood Lability, Agitation Neurological: Denies: Dizziness, Headache Hematologic/Lymphatic: Reports: Easy Bleeding, Easy Bruising Exam - Exam Exam: See Below - Vital Signs Vital Signs: Last Vital Signs Temp 37.6 C 03/16/17 18:22 Pulse 76 03/16/17 18:22 Resp 24 H 03/16/17 18:22 BP 130/38 L 03/16/17 18:22 Pulse Ox 93 L 03/16/17 18:22 Weight: 54.431 kg - Exam Physical Exam Comments:: GENERAL: Ill-appearing elderly white female lying in hospital bed in no acute distress. HEENT: Normocephalic, atraumatic. Conjunctiva clear, pupils equal round and reactive to light, extraocular movements intact. Nares patent without discharge. Hearing grossly intact. Dry membranes moist, posterior pharynx unremarkable. NECK: Supple, no masses. CV: Regular rate and rhythm, 2/6 systolic murmur at base, no rub or gallops. 2 + radial pulses. PULMONARY: Normal effort, clear to auscultation bilaterally with diminished air movement in the bases, no wheezes, rales, or rhonchi. ABDOMEN: Hyperactive bowel sounds, soft, nontender, nondistended. Liquid colostomy output without obvious blood. EXTREMITIES: No edema, cyanosis, or clubbing. MUSCULOSKELETAL: Moves all extremities well. NEUROLOGICAL: No obvious deficits. DERMATOLOGIC: No rashes or suspicious lesions in exposed areas. Venous stasis changes of bilateral lower extremities. Diffuse bruising of upper extremities. PSYCHIATRIC: Alert, oriented x4, interactive, appropriate affect. - Patient Data Lab Results Last 24 hrs: Laboratory Results - last 24 hr 03/16/17 03/16/17 Range/Units 18:40 18:40 WBC 8.9 (5.0-10.0) 10^3/uL RBC 3.06 L (3.80-5.50) 10^6/uL Hgb 10.6 L (12.0-16.0) g/dL Hct 32.6 L (37.0-47.0) % MCV 106.3 H (82.0-92.0) fL MCH 34.7 H (27.0-31.0) pg MCHC 32.6 (32.0-36.0) g/dL RDW 13.8 (11.5-14.5) % Plt Count 117 L (150-300) 10^3/uL MPV 9.6 (7.4-10.4) fL Neut % (Auto) 83.6 H (50.0-70.0) % Lymph % (Auto) 10.7 L (20.0-40.0) % [place] % (Auto) 5.3 (2.0-8.0) % Eos % (Auto) 0.1 L (1.0-3.0) % Baso % (Auto) 0.3 (0.0-1.0) % Neut # (Auto) 7.4 H (2.5-7.0) 10^3/uL Lymph # (Auto) 1.0 (1.0-4.0) 10^3/uL [place] # (Auto) 0.5 (0.1-0.8) 10^3/uL Eos # (Auto) 0.0 L (0.1-0.3) 10^3/uL Baso # (Auto) 0.0 (0.0-0.1) 10^3/uL Sodium 146 H (136-145) mmol/L Potassium 4.2 (3.3-5.3) mmol/L Chloride 113 (98-115) mmol/L Carbon Dioxide 20.9 L (21.0-32.0) mmol/L BUN 34 H (6-25) mg/dL Creatinine 1.08 (0.51-1.17) mg/dL Est Cr Clr Drug Dosing 29.84 mL/min Estimated GFR (MDRD) 49 mL/min Glucose 124 H (70-110) mg/dL Calcium 6.5 L (8.7-10.3) mg/dL Total Bilirubin 0.3 (0.2-1.0) mg/dL AST 24 (15-37) U/L ALT 33 (12-78) U/L Alkaline Phosphatase 42 L (46-116) IU/L Total Protein 5.1 L (6.4-8.2) g/dL Albumin 2.91 L (3.00-4.80) g/dL Result Diagrams: 03/16/17 18:40 03/16/17 18:40 *Q Meaningful Use (ADM) - VTE *Q VTE Criteria *Q: - Stroke *Q Stroke Criteria *Q: - AMI *Q AMI Criteria *Q: Problem List Initiated/Reviewed/Updated: Yes Orders Last 24hrs: Active Orders 24 hr Category Date Time Status Antiembolic Devices [RC] PER UNIT ROUTINE Care 03/16/17 20:56 Ordered Advance Diet Instructions [DIET] Diet 03/17/17 Breakfast Ordered C DIFFICILE TOXIN BY PCR [MREF] Routine Lab 03/16/17 20:53 Uncollected CBC WITH AUTO DIFF [HEME] AM Lab 03/17/17 05:11 Ordered COMPREHENSIVE METABOLIC PN,CMP [CHEM] AM Lab 03/17/17 05:11 Ordered STOOL CULTURE [MREF] Routine Lab 03/16/17 20:53 Uncollected Acetaminophen/HYDROcodone [[place] 325-5 MG] Med 03/16/17 20:32 Ordered 1 - 2 tab PO Q6H PRN Albuterol [Proventil Neb Soln] Med 03/16/17 20:32 Ordered 2.5 mg NEB QID PRN Arformoterol [Brovana] Med 03/17/17 08:00 Ordered 15 mcg NEB BIDRT Budesonide [Pulmicort] Med 03/16/17 21:00 Ordered 0.5 mg INH BID Cholecalciferol (Vitamin D3) [Vitamin D3] Med 03/17/17 08:00 Ordered 1,000 units PO DAILY@0800 Levothyroxine [Synthroid] Med 03/17/17 06:00 Ordered 88 mcg PO DAILY@0600 Lisinopril [Prinivil] Med 03/17/17 09:00 Ordered 5 mg PO DAILY Lutein/Minerals/Vit A,C & E [Ocuvite] Med 03/17/17 08:00 Ordered 1 cap PO DAILY@0800 Metoprolol Tartrate [Lopressor] Med 03/16/17 21:00 Ordered 12.5 mg PO BID Ondansetron [Zofran] Med 03/16/17 20:51 Ordered 4 mg IVPUSH Q6H PRN Potassium Chloride [Klor-Con 10] Med 03/17/17 09:00 Ordered 10 meq PO DAILY Pravastatin Med 03/16/17 21:00 Ordered 40 mg PO BEDTIME Roflumilast Med 03/17/17 09:00 Ordered 500 mcg PO DAILY Sodium Chloride 0.9% @ 75 MLS/HR(1000ml) Med 03/16/17 21:00 Ordered Sodium Chloride 0.9% [Normal Saline] 1,000 ml IV ASDIRECTED Sotalol HCl [Sotalol] Med 03/17/17 09:00 Ordered 120 mg PO DAILY Tiotropium [Spiriva HandiHaler] Med 03/17/17 09:00 Ordered 18 mcg INH DAILY Venlafaxine [Effexor XR] Med 03/17/17 09:00 Ordered 150 mg PO DAILY Warfarin [Coumadin] Med 03/16/17 20:45 Ordered 2.5 mg PO Q7D Warfarin [Coumadin] Med 03/17/17 09:00 Ordered 5 mg PO DAILY predniSONE Med 03/17/17 08:00 Ordered 10 mg PO WITHBREAKFAST predniSONE Med 03/17/17 17:00 Ordered 5 mg PO DAILY@1700 SCD [Sequential Compression Device] [OM.PC] Routine Oth 03/16/17 20:56 Ordered Medication Orders Hydrocodone Bitart/Acetaminophen ([place] 325-5 Mg) 1 - 2 tab PO Q6H PRN PRN Reason: Pain Albuterol (Proventil Neb Soln) 2.5 mg NEB QID PRN PRN Reason: Shortness of Breath Arformoterol Tartrate (Brovana) 15 mcg NEB BIDRT [facility] Budesonide (Pulmicort) 0.5 mg INH BID [facility] Cholecalciferol (Vitamin D3) 1,000 units PO DAILY@0800 [facility] Sodium Chloride (Normal Saline) 1,000 mls @ 75 mls/hr IV ASDIRECTED [facility] Levothyroxine Sodium (Synthroid) 88 mcg PO DAILY@0600 [facility] Lisinopril (Prinivil) 5 mg PO DAILY [facility] Metoprolol Tartrate (Lopressor) 12.5 mg PO BID [facility] Multivitamins/Minerals (Ocuvite) each PO DAILY@0800 [facility] Non-Formulary Medication (Pravastatin) 40 mg PO BEDTIME [facility] Non-Formulary Medication (Roflumilast) 500 mcg PO DAILY [facility] Non-Formulary Medication (Sotalol Hcl [Sotalol]) 120 mg PO DAILY [facility] Ondansetron HCl (Zofran) 4 mg IVPUSH Q6H PRN PRN Reason: Nausea/Vomiting Potassium Chloride (Klor-Con 10) 10 meq PO DAILY [facility] Prednisone (Prednisone) 5 mg PO DAILY@1700 [facility] Prednisone (Prednisone) 10 mg PO WITHBREAKFAST [facility] Sodium Chloride (Syrex Flush) 5 ml FLUSH Q8HR PRN PRN Reason: Keep Vein Open Last Admin: 03/16/17 18:57 Dose: 5 ml Tiotropium [place] (Spiriva Handihaler) 18 mcg INH DAILY [facility] Venlafaxine HCl (Effexor Xr) 150 mg PO DAILY [facility] Warfarin Sodium (Coumadin) 2.5 mg PO Q7D [facility] Warfarin Sodium (Coumadin) 5 mg PO DAILY [facility] Assessment/Plan Comment:: Mrs. Perla is an 82yoF with a history significant for COPD, CAD, and HFpEF who presented to the ED for the second time in 24 hours due to intractable nausea and diarrhea. Laboratory obtained yesterday in the ED was reassuring and repeat laboratory data obtained today after admission is notable for evidence of mild dehydration with increased sodium and potassium compared to yesterday. CT abdomen/pelvis in the ED was concerning for gas within the urinary bladder reported to me as a concern regarding fistula with the bowel given her worsening abdominal pain, but it has since been determined that the urine obtained yesterday in the ED was via catheterization, explaining the gas. Regardless, due to her intractable nausea and vomiting as well as dehydration, she will be admitted for further work-up and management. # Intractable nausea and diarrhea/dehydration: Ongoing nausea and diarrhea despite attempts at outpatient management and now clinically dry and laboratory data with evidence of mild dehydration. Etiology of symptoms is likely acute viral gastroenteritis especially given other residents at the [facility] have similar symptoms, but will further assess for other infectious etiology with stool testing for bacteria and C. difficile. She has received 1L NS in the ED and will continue with gentle fluid rehydration with NS at 75cc/hr and hold bumetanide this evening, recognizing that there is a cautious fluid balance given her history of HFpEF. Hold docusate and Miralax. Give Zofran IV as needed for nausea. Diet as tolerated. Recheck CBC and CMP in AM. # Hypocalcemia: Ca 6.5 today, decreased from 8.4 yesterday. Will start supplementation and recheck along with magnesium in the morning. Chronic medical conditions related to current hospitalization: # COPD: Stable. Continue baseline oxygen, Pulmicort, Brovana, Dalirespo, Spiriva , and prn albuterol. # CAD/HFpEF/HTN/HLD: Currently asymptomatic. Continue metoprolol, lisinopril, and statin. # Hx TAVR: Continue warfarin anticoagulation. # Atrial fibrillation: Maintained in sinus rhythm on sotalol, which will be continued. # GERD: Stable. Hold omeprazole in the setting of acute diarrhea. # Suyapa's granulomatosis: Stable. Continue prednisone. # Anemia: Stable without evidence of bleeding. Hold iron in the setting of nausea. # Hypothyroidism: Stable with recent TSH normal. Continue levothyroxine. # Low vitamin D: Stable. Continue vitamin D supplementation. # Depression: Stable. Continue Effexor. Hospitalization details # FEN: IVF with NS at 75cc/hr x 1L. Electrolytes as above with mild hypernatremia and hypocalcemia. Nutrition with clear liquids advanced to regular diet as tolerated. # PPX: Therapeutic INR on warfarin anticoagulation. # Code status: DNR. # Emergency contact: Daughters, who were updated at bedside this evening. # Disposition: Admit to med/surg. Anticipate at least 2 night stay for work-up and management of above issues. Anticipate discharge back to [facility].
[2017-03-16] MEDS: Ondansetron 4 MG/2 ML SDV IVPUSH PRN (21:35)
[2017-03-16] MEDS: Metoprolol Tartrate 25 MG Tab PO SCH (23:42)
[2017-03-16] MEDS: Budesonide 0.5 MG/2 ML Neb Susp INH SCH (23:43)
[2017-03-17] MEDS: Promethazine 12.5 MG in Sodium Chloride 0.9% 50 ML IV PRN ×4 (00:04→19:28)
[2017-03-17] MEDS: Levothyroxine 88 MCG Tab PO SCH (06:28)
[2017-03-17] MEDS: Arformoterol 15 MCG/2 ML Neb Soln NEB SCH ×2 (07:26→20:43)
[2017-03-17] MEDS: predniSONE 10 MG Tab PO SCH (08:21)
[2017-03-17] MEDS: Venlafaxine 150 MG Cap.ER PO SCH (08:21)
[2017-03-17] MEDS: Lisinopril 5 MG Tab PO SCH (08:22)
[2017-03-17] MEDS: Metoprolol Tartrate 25 MG Tab PO SCH ×2 (08:22→21:20)
[2017-03-17] MEDS: Cholecalciferol (Vitamin D3) 1,000 Unit Tab PO SCH (08:23)
[2017-03-17] MEDS: Lutein/Minerals/Vitamins A, C & E Tab PO SCH (08:23)
[2017-03-17] MEDS: Potassium Chloride 10 MEQ Tab.ER PO SCH ×2 (08:23→08:29)
[2017-03-17] MEDS: Budesonide 0.5 MG/2 ML Neb Susp INH SCH ×2 (08:42→21:20)
[2017-03-17] MEDS: Calcium Carbonate 500 MG Tab.Chew PO SCH ×2 (08:49→21:20)
[2017-03-17] MEDS: Tiotropium Inhaler 18 MCG Inhalation Powder Cap Kit of 5 INH SCH (08:58)
[2017-03-17] MEDS: Sotalol 80 MG Tab PO SCH (09:17)
[2017-03-17] MEDS: Roflumilast 500 MCG Tab PO SCH (09:27)
--- NOTE | 2017-03-17 10:57 | PCM.PN ---
- General Info Date of Service: 03/17/17 Functional Status: Reports: Pain Controlled, Urinating, New Symptoms (Severe nausea, antiemetic was changed to Phenergan with some improvement however). Denies: Tolerating Diet - Review of Systems General: Reports: Fatigue. Denies: Fever, Weakness, Night Sweats, Appetite HEENT: Reports: No Symptoms Pulmonary: Reports: No Symptoms Cardiovascular: Reports: No Symptoms Gastrointestinal: Reports: Decreased Appetite, Diarrhea (Loose stool colostomy) , Flatus, Nausea (Profound nausea). Denies: Abdominal Pain, Difficulty Swallowing, Vomiting Genitourinary: Reports: No Symptoms Musculoskeletal: Reports: No Symptoms Skin: Reports: Bruising Neurological: Reports: Weakness Psychiatric: Reports: Depression (Depression worse situational over the past 2 weeks--friends and neighbors illness/). Denies: Confusion - Patient Data Vitals - Most Recent: Last Vital Signs Temp 97.7 F 03/17/17 07:00 Pulse 82 03/17/17 09: Resp 20 03/17/17 07:00 BP 145/69 H 03/17/17: Pulse Ox 96 03/17/17 08:42 Weight - Most Recent: 120 lb I&O - Last 24 Hours: Intake & Output 03/16/17 03/17/17 03/17/17 22:59 06:59 14:59 Intake Total 1240 734 Output Total 600 600 Balance 640 134 Lab Results Last 24 Hours: Laboratory Results - last 24 hr 03/16/17 03/16/17 03/16/17 Range/Units 18:40 18:40 21:25 WBC 8.9 (5.0-10.0) 10^3/uL RBC 3.06 L (3.80-5.50) 10^6/uL Hgb 10.6 L (12.0-16.0) g/dL Hct 32.6 L (37.0-47.0) % MCV 106.3 H (82.0-92.0) fL MCH 34.7 H (27.0-31.0) pg MCHC 32.6 (32.0-36.0) g/dL RDW 13.8 (11.5-14.5) % Plt Count 117 L (150-300) 10^3/uL MPV 9.6 (7.4-10.4) fL Neut % (Auto) 83.6 H (50.0-70.0) % Lymph % (Auto) 10.7 L (20.0-40.0) % [place] % (Auto) 5.3 (2.0-8.0) % Eos % (Auto) 0.1 L (1.0-3.0) % Baso % (Auto) 0.3 (0.0-1.0) % Neut # (Auto) 7.4 H (2.5-7.0) 10^3/uL Lymph # (Auto) 1.0 (1.0-4.0) 10^3/uL [place] # (Auto) 0.5 (0.1-0.8) 10^3/uL Eos # (Auto) 0.0 L (0.1-0.3) 10^3/uL Baso # (Auto) 0.0 (0.0-0.1) 10^3/uL PT (8.9-11.4) SEC INR (0.9-1.1) Sodium 146 H (136-145) mmol/L Potassium 4.2 (3.3-5.3) mmol/L Chloride 113 (98-115) mmol/L Carbon Dioxide 20.9 L (21.0-32.0) mmol/L BUN 34 H (6-25) mg/dL Creatinine 1.08 (0.51-1.17) mg/dL Est Cr Clr Drug Dosing 29.84 mL/min Estimated GFR (MDRD) 49 mL/min Glucose 124 H (70-110) mg/dL Calcium 6.5 L (8.7-10.3) mg/dL Magnesium (1.8-2.4) mg/dL Total Bilirubin 0.3 (0.2-1.0) mg/dL AST 24 (15-37) U/L ALT 33 (12-78) U/L Alkaline Phosphatase 42 L (46-116) IU/L Total Protein 5.1 L (6.4-8.2) g/dL Albumin 2.91 L (3.00-4.80) g/dL Specimen Type Urincc Urine Color Yellow (YELLOW) Urine Appearance Slightly cloudy H (CLEAR) Urine pH 5.5 (5.0-9.0) Ur Specific [place] 1.015 (1.005-1.030) Urine Protein Negative (NEGATIVE) mg/dL Urine Glucose (UA) Negative (NEGATIVE) mg/dL Urine Ketones Negative (NEGATIVE) mg/dL Urine Occult Blood Large H (NEGATIVE) Urine Nitrite Negative (NEGATIVE) Urine Bilirubin Negative (NEGATIVE) Urine Urobilinogen 0.2 (0.2-1.0) E.U./dL Ur Leukocyte Esterase Negative (NEGATIVE) Urine RBC 0-5 /HPF Urine WBC 0-5 /HPF Ur Epithelial Cells Moderate H /LPF Urine Bacteria Few (NONE TO FEW) /HPF 03/17/17 03/17/17 03/17/17 Range/Units 07:20 07:20 07:20 WBC 10.2 H (5.0-10.0) 10^3/uL RBC 3.10 L (3.80-5.50) 10^6/uL Hgb 10.7 L (12.0-16.0) g/dL Hct 33.0 L (37.0-47.0) % MCV 106.3 H (82.0-92.0) fL MCH 34.5 H (27.0-31.0) pg MCHC 32.4 (32.0-36.0) g/dL RDW 13.6 (11.5-14.5) % Plt Count 135 L (150-300) 10^3/uL MPV 9.0 (7.4-10.4) fL Neut % (Auto) 75.0 H (50.0-70.0) % Lymph % (Auto) 16.2 L (20.0-40.0) % [place] % (Auto) 7.3 (2.0-8.0) % Eos % (Auto) 0.3 L (1.0-3.0) % Baso % (Auto) 1.2 H (0.0-1.0) % Neut # (Auto) 7.7 H (2.5-7.0) 10^3/uL Lymph # (Auto) 1.7 (1.0-4.0) 10^3/uL [place] # (Auto) 0.7 (0.1-0.8) 10^3/uL Eos # (Auto) 0.0 L (0.1-0.3) 10^3/uL Baso # (Auto) 0.1 (0.0-0.1) 10^3/uL PT 34.1 H (8.9-11.4) SEC INR 3.2 H (0.9-1.1) Sodium 148 H (136-145) mmol/L Potassium 3.4 (3.3-5.3) mmol/L Chloride 117 H (98-115) mmol/L Carbon Dioxide 18.9 L (21.0-32.0) mmol/L BUN 29 H (6-25) mg/dL Creatinine 0.99 (0.51-1.17) mg/dL Est Cr Clr Drug Dosing 32.55 mL/min Estimated GFR (MDRD) 54 mL/min Glucose 86 (70-110) mg/dL Calcium 6.5 L (8.7-10.3) mg/dL Magnesium 2.1 (1.8-2.4) mg/dL Total Bilirubin 0.4 (0.2-1.0) mg/dL AST 35 (15-37) U/L ALT 30 (12-78) U/L Alkaline Phosphatase 41 L (46-116) IU/L Total Protein 5.2 L (6.4-8.2) g/dL Albumin 3.01 (3.00-4.80) g/dL Specimen Type Urine Color (YELLOW) Urine Appearance (CLEAR) Urine pH (5.0-9.0) Ur Specific [place] (1.005-1.030) Urine Protein (NEGATIVE) mg/dL Urine Glucose (UA) (NEGATIVE) mg/dL Urine Ketones (NEGATIVE) mg/dL Urine Occult Blood (NEGATIVE) Urine Nitrite (NEGATIVE) Urine Bilirubin (NEGATIVE) Urine Urobilinogen (0.2-1.0) E.U./dL Ur Leukocyte Esterase (NEGATIVE) Urine RBC /HPF Urine WBC /HPF Ur Epithelial Cells /LPF Urine Bacteria (NONE TO FEW) /HPF Erick Results Last 24 Hours: Microbiology 03/16/17 21:25 Urine Culture - Preliminary Urine, Clean Catch NO GROWTH AFTER 1 DAY 03/16/17 21:25 Clostridium difficile Toxin A&B (M) - Final Stool / Feces - Stool, Liquid NEGATIVE CDIFF TOXIN Med Orders - Current: Current Medications Hydrocodone Bitart/Acetaminophen ([place] 325-5 Mg) 1 - 2 tab PO Q6H PRN PRN Reason: Pain Albuterol (Proventil Neb Soln) 2.5 mg NEB QID PRN PRN Reason: Shortness of Breath Arformoterol Tartrate (Brovana) 15 mcg NEB BIDRT [facility] Last Admin: 03/17/17 07:26 Dose: 15 mcg Budesonide (Pulmicort) 0.5 mg INH BID [facility] Last Admin: 03/17/17 08:42 Dose: 0.5 mg Calcium Carbonate/Glycine (Tums) 1,000 mg PO BID [facility] Last Admin: 03/17/17 08:49 Dose: Not Given Cholecalciferol (Vitamin D3) 1,000 units PO DAILY@0800 [facility] Last Admin: 03/17/17 08:23 Dose: Not Given Sodium Chloride (Normal Saline) 1,000 mls @ 75 mls/hr IV ASDIRECTED [facility] Last Admin: 03/16/17 21:28 Dose: 75 mls/hr Promethazine HCl 12.5 mg/ (Sodium Chloride) 50.5 mls @ 200 mls/hr IV Q6H PRN PRN Reason: Nausea/Vomiting Last Admin: 03/17/17 06:13 Dose: 200 mls/hr Levothyroxine Sodium (Synthroid) 88 mcg PO DAILY@0600 [facility] Last Admin: 03/17/17 06:28 Dose: 88 mcg Lisinopril (Prinivil) 5 mg PO DAILY [facility] Last Admin: 03/17/17 08:22 Dose: 5 mg Metoprolol Tartrate (Lopressor) 12.5 mg PO BID [facility] Last Admin: 03/17/17 08:22 Dose: 12.5 mg Multivitamins/Minerals (Ocuvite) 1 each PO DAILY@0800 [facility] Last Admin: 03/17/17 08:23 Dose: Not Given Ondansetron HCl (Zofran) 4 mg IVPUSH Q6H PRN PRN Reason: Nausea/Vomiting Last Admin: 03/16/17 21:35 Dose: 4 mg Potassium Chloride (Klor-Con 10) 10 meq PO DAILY [facility] Last Admin: 03/17/17 08:29 Dose: Not Given Pravastatin Sodium (Pravachol) 40 mg PO BEDTIME [facility] Prednisone (Prednisone) 5 mg PO DAILY@1700 [facility] Prednisone (Prednisone) 10 mg PO ACBREAKFAST [facility] Last Admin: 03/17/17 08:21 Dose: 10 mg Roflumilast (Daliresp) 500 mcg PO DAILY [facility] Last Admin: 03/17/17 09:27 Dose: Not Given Sodium Chloride (Syrex Flush) 5 ml FLUSH Q8HR PRN PRN Reason: Keep Vein Open Last Admin: 03/16/17 18:57 Dose: 5 ml Sotalol HCl (Betapace) 120 mg PO DAILY [facility] Last Admin: 03/17/17 09:17 Dose: 120 mg Tiotropium [place] (Spiriva Handihaler) 18 mcg INH DAILYRT [facility] Last Admin: 03/17/17 08:58 Dose: 18 mcg Venlafaxine HCl (Effexor Xr) 150 mg PO DAILY [facility] Last Admin: 03/17/17 08:21 Dose: 150 mg Warfarin Sodium (Coumadin) 2.5 mg PO Mo@1800 [facility] Last Admin: 03/16/17 23:42 Dose: Not Given Warfarin Sodium (Coumadin) 5 mg PO SuTuWeThFrSa@1800 [facility] Discontinued Medications Sodium Chloride (Normal Saline) 1,000 mls @ 999 mls/hr IV .BOLUS ONE Stop: 03/16/17 18:12 Last Admin: 03/16/17 17:49 Dose: 999 mls/hr Ondansetron HCl (Zofran) 4 mg IVPUSH ONETIME ONE Stop: 03/16/17 17:13 Last Admin: 03/16/17 17:49 Dose: 4 mg - Exam Quality Assessment: Supplemental Oxygen (3 L O2 nasal cannula) General: Moderate Distress (Severe nausea, decreased appetite, no vomiting) Neck: Supple, No JVD. No: JVD Lungs: Decreased Breath Sounds Cardiovascular: Regular Rate, Regular Rhythm GI/Abdominal Exam: Soft, Other (Liquid brown stool colostomy). No: No Distention, Rigid, Tender Back Exam: No: CVA Tenderness (L), CVA Tenderness (R) Extremities: No Pedal Edema Skin: Other (Extreme brawniness upper and lower extremities) Wound/Incisions: No: Erythema Neurological: Normal Speech, Normal Tone Psy/Mental Status: Alert, Depressed - Problem List Review Problem List Initiated/Reviewed/Updated: Yes - Plan Plan:: Code status: DNR. IMPRESSION/PLAN Viral gastroenteritis with ongoing nausea, some improvement with Phenergan, hemodynamically stable, negative eosinophilia any GI pathology, neutrophils decreasing. Negative C. difficile, no growth on urine culture, due to GI intolerance will hold iron, PO potassium--supplemented with free water with K+ due to diarrhea and likely hypokalemia trend. Continue holding laxatives. Dehydration, volume deficit, elevated BUN/creatinine ratio--however improving Hypernatremia, approximately 1.4 L free water deficit with concomittent vascular deficit; Will change to free water--attempt to correct gently over 24 hours due to history of heart failure. Hypercoagulation, INR 3.2. Hold tonight's dose of Coumadin Hypocalcemia: Ca 6.5--corrected to albumin at 7.4, asymptomatic, Magnesium normal. 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 We'll continue supplementation. Chronic medical conditions COPD: Stable. Continue baseline oxygen, Pulmicort, Brovana, Dalirespo, Spiriva, and prn albuterol. CAD/HFpEF/HTN/HLD: Currently asymptomatic. Continue metoprolol, lisinopril, hold statin tonight due to GI symptoms now. 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 Atrial fibrillation: Maintained in sinus rhythm on sotalol, hold tonight's Coumadin. GERD: Stable. Hold omeprazole in the setting of acute diarrhea. Suyapa's granulomatosis: Stable. Continue prednisone. Anemia: Stable without evidence of bleeding. Hold iron in the setting of nausea. Hypothyroidism: Stable with recent TSH normal. Continue levothyroxine. Low vitamin D: Stable. Continue vitamin D supplementation. Depression: Seems to have worsened over recent deaths of friends and neighbors. Likely situational, may have to increase dosage of Effexor Overall plan, change IV fluid to to free water, monitors fluid status, monitor electrolytes, change oral potassium to IV, Phenergan, advance diet as tolerated. Hold unnecessary medications, hold Coumadin tonight. Stool culture/ study surveillance. Monitor carefully for any infectious GI/peritonitis pathology
[2017-03-17] MEDS: Dextrose 5% in Water 1,000 ML IV SCH (12:06)
[2017-03-17] MEDS ORDERED: Potassium Chloride 100 ML IV ONE (16:00)
[2017-03-17] MEDS ORDERED: Potassium Chloride 20 MEQ in Premix Bag 1 BAG IV ONE (16:00)
[2017-03-17] MEDS ORDERED: Potassium Bicarbonate/Potassium Chloride 25 MEQ Tab.Eff PO ONE (17:30)
[2017-03-17] MEDS: predniSONE 5 MG Tab PO SCH (17:43)
[2017-03-17] MEDS ORDERED: Calcium Carbonate 500 MG Tab.Chew PO ONE (18:00)
[2017-03-17] MEDS ORDERED: Pravastatin 20 MG Tab PO SCH (21:00)
[2017-03-18] MEDS: Dextrose 5% in Water 1,000 ML IV SCH (02:23)
[2017-03-18] MEDS: Levothyroxine 88 MCG Tab PO SCH (05:48)
[2017-03-18] MEDS: Promethazine 12.5 MG in Sodium Chloride 0.9% 50 ML IV PRN ×4 (05:49→20:28)
[2017-03-18] MEDS: Arformoterol 15 MCG/2 ML Neb Soln NEB SCH ×2 (07:29→20:13)
[2017-03-18] MEDS: predniSONE 10 MG Tab PO SCH (08:35)
[2017-03-18] MEDS: Calcium Carbonate 500 MG Tab.Chew PO SCH ×2 (08:36→21:31)
[2017-03-18] MEDS: Lisinopril 5 MG Tab PO SCH (08:37)
[2017-03-18] MEDS: Lutein/Minerals/Vitamins A, C & E Tab PO SCH (08:37)
[2017-03-18] MEDS: Venlafaxine 150 MG Cap.ER PO SCH (08:38)
[2017-03-18] MEDS: Sotalol 80 MG Tab PO SCH (08:38)
[2017-03-18] MEDS: Cholecalciferol (Vitamin D3) 1,000 Unit Tab PO SCH (08:39)
[2017-03-18] MEDS: Metoprolol Tartrate 25 MG Tab PO SCH ×2 (08:40→21:31)
[2017-03-18] MEDS: Budesonide 0.5 MG/2 ML Neb Susp INH SCH ×2 (08:52→21:54)
[2017-03-18] MEDS: Roflumilast 500 MCG Tab PO SCH (09:07)
[2017-03-18 09:09] LABS: CHLORIDE,CL 108 mmol/L (98-115); SODIUM,NA 140 mmol/L (136-145)
[2017-03-18] MEDS: Tiotropium Inhaler 18 MCG Inhalation Powder Cap Kit of 5 INH SCH (10:13)
--- NOTE | 2017-03-18 10:13 | PCM.PN ---
- General Info Date of Service: 03/18/17 Functional Status: Reports: Pain Controlled, Tolerating Diet (Her nausea has improved, no vomiting), Urinating - Review of Systems General: Reports: Appetite. Denies: Fever, Weakness HEENT: Reports: No Symptoms Pulmonary: Denies: Shortness of Breath, Cough, Sputum, Wheezing Cardiovascular: Reports: No Symptoms Gastrointestinal: Reports: Diarrhea. Denies: Abdominal Pain, Nausea, Vomiting Genitourinary: Reports: No Symptoms Neurological: Denies: Confusion Psychiatric: Reports: No Symptoms - Patient Data Vitals - Most Recent: Last Vital Signs Temp 98.1 F 03/18/17 05:56 Pulse 85 03/18/17 08:40 Resp 20 03/18/17 08:31 BP 150/74 H 03/18/17 08:40 Pulse Ox 93 L 03/18/17 08:31 Weight - Most Recent: 121 lb 8 oz I&O - Last 24 Hours: Intake & Output 03/17/17 03/18/17 03/18/17 22:59 06:59 14:59 Intake Total 1008 739 Output Total 450 650 Balance 558 89 Lab Results Last 24 Hours: Laboratory Results - last 24 hr 03/18/17 03/18/17 03/18/17 Range/Units 08:37 08:37 08:37 WBC 9.5 (5.0-10.0) 10^3/uL RBC 3.17 L (3.80-5.50) 10^6/uL Hgb 11.5 L (12.0-16.0) g/dL Hct 33.5 L (37.0-47.0) % MCV 105.6 H (82.0-92.0) fL MCH 36.1 H (27.0-31.0) pg MCHC 34.2 (32.0-36.0) g/dL RDW 13.3 (11.5-14.5) % Plt Count 137 L (150-300) 10^3/uL MPV 9.6 (7.4-10.4) fL Neut % (Auto) 76.7 H (50.0-70.0) % Lymph % (Auto) 15.1 L (20.0-40.0) % [place] % (Auto) 7.5 (2.0-8.0) % Eos % (Auto) 0.4 L (1.0-3.0) % Baso % (Auto) 0.3 (0.0-1.0) % Neut # (Auto) 7.4 H (2.5-7.0) 10^3/uL Lymph # (Auto) 1.4 (1.0-4.0) 10^3/uL [place] # (Auto) 0.7 (0.1-0.8) 10^3/uL Eos # (Auto) 0.0 L (0.1-0.3) 10^3/uL Baso # (Auto) 0.0 (0.0-0.1) 10^3/uL PT 34.7 H (8.9-11.4) SEC INR 3.3 H (0.9-1.1) Sodium 140 (136-145) mmol/L Potassium 3.3 (3.3-5.3) mmol/L Chloride 108 (98-115) mmol/L Carbon Dioxide 18.1 L (21.0-32.0) mmol/L BUN 19 (6-25) mg/dL Creatinine 0.82 (0.51-1.17) mg/dL Est Cr Clr Drug Dosing 39.30 mL/min Estimated GFR (MDRD) > 60 mL/min Glucose 141 H (70-110) mg/dL Calcium 6.6 L (8.7-10.3) mg/dL Erick Results Last 24 Hours: Microbiology 03/16/17 19:50 Aerobic Blood Culture - Preliminary Blood - Venous - Lab Draw NO GROWTH AFTER 1 DAY Anaerobic Blood Culture - Preliminary NO GROWTH AFTER 1 DAY 03/16/17 18:40 Aerobic Blood Culture - Preliminary Blood - Venous NO GROWTH AFTER 1 DAY Anaerobic Blood Culture - Preliminary NO GROWTH AFTER 1 DAY 03/16/17 21:25 Urine Culture - Preliminary Urine, Clean Catch NO GROWTH AFTER 1 DAY Med Orders - Current: Current Medications Hydrocodone Bitart/Acetaminophen ([place] 325-5 Mg) 1 - 2 tab PO Q6H PRN PRN Reason: Pain Albuterol (Proventil Neb Soln) 2.5 mg NEB QID PRN PRN Reason: Shortness of Breath Arformoterol Tartrate (Brovana) 15 mcg NEB BIDRT [facility] Last Admin: 03/18/17 07:29 Dose: 15 mcg Budesonide (Pulmicort) 0.5 mg INH BID [facility] Last Admin: 03/18/17 08:52 Dose: 0.5 mg Calcium Carbonate/Glycine (Tums) 1,000 mg PO BID [facility] Last Admin: 03/18/17 08:36 Dose: 1,000 mg Cholecalciferol (Vitamin D3) 1,000 units PO DAILY@0800 [facility] Last Admin: 03/18/17 08:39 Dose: 1,000 units Promethazine HCl 12.5 mg/ (Sodium Chloride) 50.5 mls @ 200 mls/hr IV Q6H PRN PRN Reason: Nausea/Vomiting Last Admin: 03/18/17 05:49 Dose: 200 mls/hr Dextrose/Water (Dextrose 5% In Water) 1,000 mls @ 75 mls/hr IV ASDIRECTED [facility] Last Admin: 03/18/17 02:23 Dose: 75 mls/hr Levothyroxine Sodium (Synthroid) 88 mcg PO DAILY@0600 [facility] Last Admin: 03/18/17 05:48 Dose: 88 mcg Lisinopril (Prinivil) 5 mg PO DAILY [facility] Last Admin: 03/18/17 08:37 Dose: 5 mg Metoprolol Tartrate (Lopressor) 12.5 mg PO BID [facility] Last Admin: 03/18/17 08:40 Dose: 12.5 mg Multivitamins/Minerals (Ocuvite) 1 each PO DAILY@0800 [facility] Last Admin: 03/18/17 08:37 Dose: 1 each Ondansetron HCl (Zofran) 4 mg IVPUSH Q6H PRN PRN Reason: Nausea/Vomiting Last Admin: 03/16/17 21:35 Dose: 4 mg Potassium Chloride (Klor-Con 10) 10 meq PO DAILY [facility] Last Admin: 03/17/17 08:29 Dose: Not Given Pravastatin Sodium (Pravachol) 40 mg PO BEDTIME [facility] Last Admin: 03/17/17 21:20 Dose: Not Given Prednisone (Prednisone) 5 mg PO DAILY@1700 [facility] Last Admin: 03/17/17 17:43 Dose: 5 mg Prednisone (Prednisone) 10 mg PO ACBREAKFAST [facility] Last Admin: 03/18/17 08:35 Dose: 10 mg Roflumilast (Daliresp) 500 mcg PO DAILY [facility] Last Admin: 03/18/17 09:07 Dose: 500 mcg Sodium Chloride (Syrex Flush) 5 ml FLUSH Q8HR PRN PRN Reason: Keep Vein Open Last Admin: 03/16/17 18:57 Dose: 5 ml Sotalol HCl (Betapace) 120 mg PO DAILY [facility] Last Admin: 03/18/17 08:38 Dose: 120 mg [facility]iot[facility]ium [place] ([facility]ihaler[facility] Last Admin: 03/17/17 08:58 Dose: 18 mcg Venlafaxine HCl (Effexor Xr) 150 mg PO DAILY [facility] Last Admin: 03/18/17 08:38 Dose: 150 mg Warfarin Sodium (Coumadin) 2.5 mg PO Mo@1800 [facility] Last Admin: 03/16/17 23:42 Dose: Not Given Warfarin Sodium (Coumadin) 5 mg PO SuTuWeThFrSa@1800 [facility] Discontinued Medications Calcium Carbonate/Glycine (Tums) 500 mg PO ONETIME ONE Stop: 03/17/17 18:01 Last Admin: 03/17/17 17:43 Dose: 500 mg Sodium Chloride (Normal Saline) 1,000 mls @ 999 mls/hr IV .BOLUS ONE Stop: 03/16/17 18:12 Last Admin: 03/16/17 17:49 Dose: 999 mls/hr Sodium Chloride (Normal Saline) 1,000 mls @ 75 mls/hr IV ASDIRECTED [facility] Last Admin: 03/16/17 21:28 Dose: 75 mls/hr Potassium Chloride 20 meq/ (Premix) 100 mls @ 50 mls/hr IV ONETIME ONE Stop: 03/17/17 17:59 Potassium Chloride (Kcl 20 Meq In Water 100 Ml) 100 mls @ 50 mls/hr IV ONETIME ONE Stop: 03/17/17 17:59 Last Admin: 03/17/17 15:52 Dose: 50 mls/hr Ondansetron HCl (Zofran) 4 mg IVPUSH ONETIME ONE Stop: 03/16/17 17:13 Last Admin: 03/16/17 17:49 Dose: 4 mg Potassium Bicarb/Potassium Chloride (Potassium Chloride, Effervescent) 25 meq PO ONETIME ONE Stop: 03/17/17 17:31 Last Admin: 03/17/17 17:43 Dose: 25 meq - Exam Quality Assessment: Supplemental Oxygen General: Alert, Oriented, No Acute Distress Neck: No JVD Lungs: Decreased Breath Sounds. No: Crackles, Rales, Wheezing Cardiovascular: Regular Rate, Regular Rhythm. No: Tachycardia GI/Abdominal Exam: Non-Tender, No Distention, Other (Loose fluid colostomy) (Female) Exam: Deferred Skin: Other (Upper and lower extremity skin extreme brawniness, thin) Psy/Mental Status: Alert, Other (Improved affect today). No: Depressed - Problem List Review Problem List Initiated/Reviewed/Updated: Yes - My Orders Last 24 Hours: My Active Orders 03/17/17 11:00 Dextrose 5% in Water 1,000 ml IV ASDIRECTED - Plan Plan:: Code status: DNR. Update today, patient feeling better, less nausea, no vomiting, starting to eat more, sodium now normal with free water. IMPRESSION/PLAN Viral gastroenteritis, improved symptoms, much less nausea, seems to be controlled well with Phenergin, improved appetite, ongoing diarrhea, hemodynamically stable, negative eosinophilia, neutrophils decreasing. Negative C. difficile, no growth on urine culture, due to GI intolerance will hold iron , will see if she can tolerate potassium supplementation, Continue holding laxatives. Dehydration, this is improving volume deficit, improving creatinine/BUN Ratio. Will change IV fluids to D5 and a half and decrease rate. Hypernatremia, now resolved, yesterday received approximately 1.4 L free water deficit with concomittent vascular deficit; change to 1/2 saline Hypercoagulation, INR 3.2. Continue holding Hold tonight's dose of Coumadin Hypocalcemia: Ca 6.5--corrected to albumin at 7.4, asymptomatic, Magnesium normal. 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 We'll continue supplementation. Chronic medical conditions COPD: Stable. Continue baseline oxygen, Pulmicort, Brovana, Dalirespo, Spiriva, and prn albuterol. CAD/HFpEF/HTN/HLD: Currently asymptomatic. Continue metoprolol, lisinopril, hold statin tonight due to GI symptoms now. 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 Atrial fibrillation: Maintained in sinus rhythm on sotalol, hold tonight's Coumadin. GERD: Stable. Hold omeprazole in the setting of acute diarrhea. Suyapa's granulomatosis: Stable. Continue prednisone. Anemia: Stable without evidence of bleeding. Hold iron in the setting of nausea. Hypothyroidism: Stable with recent TSH normal. Continue levothyroxine. Low vitamin D: Stable. Continue vitamin D supplementation. Depression: Better affect today Overall plan, change IV fluid to half saline and decrease rate, taken more orals , Phenergan, advance diet as tolerated. Oral potassium if tolerated Hold unnecessary medications, hold Coumadin tonight. Stool culture/study surveillance. Monitor carefully for any infectious GI/peritonitis pathology. She is responding clinically
[2017-03-18] MEDS ORDERED: Dextrose 5%-0.45% NaCl 1,000 ML IV SCH (10:15)
[2017-03-18] MEDS ORDERED: Potassium Chloride 10 MEQ Tab.ER PO SCH (10:15)
[2017-03-18] MEDS: Potassium Chloride 10 MEQ Tab.ER PO SCH (10:25)
[2017-03-18] MEDS ORDERED: D5 1/2 NS w/ 40 mEq/L KCl 1,000 ML IV SCH (15:30)
[2017-03-18] MEDS: predniSONE 5 MG Tab PO SCH (18:13)
[2017-03-18] MEDS ORDERED: Sodium Chloride 0.9% 50 ML ONE (20:23)
[2017-03-18] MEDS: Ondansetron 4 MG/2 ML SDV IVPUSH PRN (21:31)
[2017-03-19] MEDS ORDERED: Sodium Chloride 0.9% 50 ML ONE (00:17)
[2017-03-19] MEDS: Promethazine 12.5 MG in Sodium Chloride 0.9% 50 ML IV PRN ×2 (00:23→20:01)
[2017-03-19] MEDS: Calcium Carbonate 500 MG Tab.Chew PO SCH ×3 (01:40→20:25)
[2017-03-19] MEDS: Levothyroxine 88 MCG Tab PO SCH (06:19)
[2017-03-19] MEDS: Arformoterol 15 MCG/2 ML Neb Soln NEB SCH ×2 (07:10→20:01)
[2017-03-19] MEDS: predniSONE 10 MG Tab PO SCH (07:36)
[2017-03-19 07:54] LABS: CHLORIDE,CL 113 mmol/L (98-115); SODIUM,NA 143 mmol/L (136-145)
[2017-03-19] MEDS: Budesonide 0.5 MG/2 ML Neb Susp INH SCH ×2 (08:50→20:23)
[2017-03-19] MEDS: Tiotropium Inhaler 18 MCG Inhalation Powder Cap Kit of 5 INH SCH (09:08)
[2017-03-19] MEDS: Metoprolol Tartrate 25 MG Tab PO SCH ×2 (09:34→20:26)
[2017-03-19] MEDS: Lisinopril 5 MG Tab PO SCH (09:34)
[2017-03-19] MEDS: Roflumilast 500 MCG Tab PO SCH (09:35)
[2017-03-19] MEDS: Venlafaxine 150 MG Cap.ER PO SCH (09:35)
[2017-03-19] MEDS: Sotalol 80 MG Tab PO SCH (09:35)
[2017-03-19] MEDS: Cholecalciferol (Vitamin D3) 1,000 Unit Tab PO SCH (09:36)
[2017-03-19] MEDS: Lutein/Minerals/Vitamins A, C & E Tab PO SCH (09:36)
[2017-03-19] MEDS: Pantoprazole 40 MG Tab.CR PO SCH (09:39)
--- NOTE | 2017-03-19 09:56 | PCM.PN ---
- General Info Date of Service: 03/19/17 Functional Status: Reports: Pain Controlled, Other (Nurses reported confusion aggravation middle the night, patient also had GI heartburn last night responded to Tums) - Review of Systems General: Reports: Weakness. Denies: Fever HEENT: Reports: No Symptoms Pulmonary: Denies: Shortness of Breath, Cough Cardiovascular: Reports: No Symptoms Gastrointestinal: Reports: Diarrhea, Other (Emesis small amount yesterday however much improved increasing appetite). Denies: Abdominal Pain, Nausea, Vomiting Genitourinary: Reports: No Symptoms Musculoskeletal: Reports: Other (Slight restless legs throughout the night) Skin: Reports: Other (Bruising) Neurological: Reports: Confusion (Confusion throughout the night) Psychiatric: Reports: Confusion (Confusion last night however lucid and alert and oriented this morning) - Patient Data Vitals - Most Recent: Last Vital Signs Temp 97.0 F 03/19/17 06:56 Pulse 75 03/19/17 06:56 Resp 20 03/19/17 06:56 BP 179/78 H 03/19/17 06:56 Pulse Ox 3 L 03/19/17 06:56 Weight - Most Recent: 120 lb I&O - Last 24 Hours: Intake & Output 03/18/17 03/19/17 03/19/17 22:59 06:59 14:59 Intake Total 535 454 Output Total 600 225 Balance -65 229 Lab Results Last 24 Hours: Laboratory Results - last 24 hr 03/19/17 03/19/17 Range/Units 07:14 07:14 PT 33.0 H (8.9-11.4) SEC INR 3.1 H (0.9-1.1) Sodium 143 (136-145) mmol/L Potassium 4.3 (3.3-5.3) mmol/L Chloride 113 (98-115) mmol/L Carbon Dioxide 18.9 L (21.0-32.0) mmol/L BUN 16 (6-25) mg/dL Creatinine 0.90 (0.51-1.17) mg/dL Est Cr Clr Drug Dosing 35.81 mL/min Estimated GFR (MDRD) > 60 mL/min Glucose 108 (70-110) mg/dL Calcium 6.8 L (8.7-10.3) mg/dL Erick Results Last 24 Hours: Microbiology 03/16/17 19:50 Aerobic Blood Culture - Preliminary Blood - Venous - Lab Draw NO GROWTH AFTER 2 DAYS Anaerobic Blood Culture - Preliminary NO GROWTH AFTER 2 DAYS 03/16/17 18:40 Aerobic Blood Culture - Preliminary Blood - Venous NO GROWTH AFTER 2 DAYS Anaerobic Blood Culture - Preliminary NO GROWTH AFTER 2 DAYS 03/16/17 21:25 Urine Culture - Final Urine, Clean Catch MIXED MAXX DAY 2 Med Orders - Current: Current Medications Hydrocodone Bitart/Acetaminophen ([place] 325-5 Mg) 1 - 2 tab PO Q6H PRN PRN Reason: Pain Albuterol (Proventil Neb Soln) 2.5 mg NEB QID PRN PRN Reason: Shortness of Breath Arformoterol Tartrate (Brovana) 15 mcg NEB BIDRT [facility] Last Admin: 03/19/17 07:10 Dose: 15 mcg Budesonide (Pulmicort) 0.5 mg INH BID [facility] Last Admin: 03/19/17 08:50 Dose: 0.5 mg Calcium Carbonate/Glycine (Tums) 1,000 mg PO BID [facility] Last Admin: 03/19/17 09:33 Dose: 1,000 mg Cholecalciferol (Vitamin D3) 1,000 units PO DAILY@0800 [facility] Last Admin: 03/18/17 08:39 Dose: 1,000 units Potassium Chloride/Dextrose/Sod Cl (D5 1/2 Ns W/ 40 Meq/L Kcl) 1,000 mls @ 50 mls/hr IV ASDIRECTED [facility] Last Admin: 03/18/17 15:45 Dose: 50 mls/hr Promethazine HCl 12.5 mg/ (Sodium Chloride) 50.5 mls @ 200 mls/hr IV Q4H PRN PRN Reason: Nausea/Vomiting Last Admin: 03/19/17 00:23 Dose: 200 mls/hr Levothyroxine Sodium (Synthroid) 88 mcg PO DAILY@0600 [facility] Last Admin: 03/19/17 06:19 Dose: 88 mcg Lisinopril (Prinivil) 5 mg PO DAILY [facility] Last Admin: 03/18/17 08:37 Dose: 5 mg Loperamide HCl (Imodium) 4 mg PO Q6H PRN PRN Reason: Diarrhea Metoprolol Tartrate (Lopressor) 12.5 mg PO BID [facility] Last Admin: 03/18/17 21:31 Dose: Not Given Multivitamins/Minerals (Ocuvite) 1 each PO DAILY@0800 [facility] Last Admin: 03/18/17 08:37 Dose: 1 each Ondansetron HCl (Zofran) 4 mg IVPUSH Q6H PRN PRN Reason: Nausea/Vomiting Last Admin: 03/18/17 21:31 Dose: 4 mg Pantoprazole Sodium (Protonix) 40 mg PO ACBREAKFAST [facility] Potassium Chloride (Klor-Con 10) 10 meq PO DAILY [facility] Last Admin: 03/18/17 10:25 Dose: Not Given Pravastatin Sodium (Pravachol) 40 mg PO BEDTIME [facility] Last Admin: 03/17/17 21:20 Dose: Not Given Prednisone (Prednisone) 5 mg PO DAILY@1700 [facility] Last Admin: 03/18/17 18:13 Dose: 5 mg Prednisone (Prednisone) 10 mg PO ACBREAKFAST [facility] Last Admin: 03/19/17 07:36 Dose: 10 mg Roflumilast (Daliresp) 500 mcg PO DAILY [facility] Last Admin: 03/18/17 09:07 Dose: 500 mcg Sodium Chloride (Syrex Flush) 5 ml FLUSH Q8HR PRN PRN Reason: Keep Vein Open Last Admin: 03/16/17 18:57 Dose: 5 ml Sotalol HCl (Betapace) 120 mg PO DAILY [facility] Last Admin: 03/18/17 08:38 Dose: 120 mg Tiotropium [place] (Spiriva Handihaler) [facility] Last Admin: 03/19/17 09:08 Dose: 18 mcg Venlafaxine HCl (Effexor Xr) 150 mg PO DAILY [facility] Last Admin: 03/18/17 08:38 Dose: 150 mg Warfarin Sodium (Coumadin) 2.5 mg PO Mo@1800 [facility] Last Admin: 03/16/17 23:42 Dose: Not Given Warfarin Sodium (Coumadin) 5 mg PO SuTuWeThFrSa@1800 [facility] Discontinued Medications Calcium Carbonate/Glycine (Tums) 500 mg PO ONETIME ONE Stop: 03/17/17 18:01 Last Admin: 03/17/17 17:43 Dose: 500 mg Sodium Chloride (Normal Saline) 1,000 mls @ 999 mls/hr IV .BOLUS ONE Stop: 03/16/17 18:12 Last Admin: 03/16/17 17:49 Dose: 999 mls/hr Sodium Chloride (Normal Saline) 1,000 mls @ 75 mls/hr IV ASDIRECTED [facility] Last Admin: 03/16/17 21:28 Dose: 75 mls/hr Promethazine HCl 12.5 mg/ (Sodium Chloride) 50.5 mls @ 200 mls/hr IV Q6H PRN PRN Reason: Nausea/Vomiting Last Admin: 03/18/17 11:51 Dose: 200 mls/hr Potassium Chloride 20 meq/ (Premix) 100 mls @ 50 mls/hr IV ONETIME ONE Stop: 03/17/17 17:59 Dextrose/Water (Dextrose 5% In Water) 1,000 mls @ 75 mls/hr IV ASDIRECTED [facility] Last Admin: 03/18/17 02:23 Dose: 75 mls/hr Potassium Chloride (Kcl 20 Meq In Water 100 Ml) 100 mls @ 50 mls/hr IV ONETIME ONE Stop: 03/17/17 17:59 Last Admin: 03/17/17 15:52 Dose: 50 mls/hr Dextrose/Sodium Chloride (Dextrose 5%-1/2 Ns) 1,000 mls @ 50 mls/hr IV ASDIRECTED [facility] Last Admin: 03/18/17 10:34 Dose: 50 mls/hr Sodium Chloride (Normal Saline) Confirm Administered Dose 50 mls @ as directed .ROUTE .STK-MED ONE Stop: 03/18/17 20:24 Last Admin: 03/18/17 20:31 Dose: 50 ml Sodium Chloride (Normal Saline) Confirm Administered Dose 50 mls @ as directed .ROUTE .STK-MED ONE Stop: 03/19/17 00:18 Last Admin: 03/19/17 01:32 Dose: Not Given Ondansetron HCl (Zofran) 4 mg IVPUSH ONETIME ONE Stop: 03/16/17 17:13 Last Admin: 03/16/17 17:49 Dose: 4 mg Potassium Bicarb/Potassium Chloride (Potassium Chloride, Effervescent) 25 meq PO ONETIME ONE Stop: 03/17/17 17:31 Last Admin: 03/17/17 17:43 Dose: 25 meq Potassium [facility] ([facility]) [facility] Admin: 03/18/17 13:46 Dose: Not Given - Exam Quality Assessment: Supplemental Oxygen General: Alert, Oriented, Cooperative, No Acute Distress Neck: No JVD Lungs: Normal Respiratory Effort, Decreased Breath Sounds. No: Crackles, Rales Cardiovascular: Regular Rate, Regular Rhythm GI/Abdominal Exam: Soft, No Distention. No: Distended (Female) Exam: Deferred Back Exam: No: CVA Tenderness (L), CVA Tenderness (R) Extremities: No Pedal Edema Peripheral Pulses: 2+: Radial (L), Radial (R) Skin: Other (Brawniness lower and upper extremities extreme chronic) Neurological: No New Focal Deficit Psy/Mental Status: Alert, Normal Affect, Normal Mood - Problem List Review Problem List Initiated/Reviewed/Updated: Yes - My Orders Last 24 Hours: My Active Orders 03/18/17 15:29 Promethazine [Phenergan] 12.5 mg Sodium Chloride 0.9% [Normal Saline] 50 ml IV Q4H 03/18/17 15:30 D5 1/2 NS w/ 40 mEq/L KCl 1,000 ml IV ASDIRECTED 03/19/17 08:29 Loperamide [Imodium] 4 mg PO Q6H PRN 03/19/17 08:45 Pantoprazole [ProTONIX] 40 mg PO ACBREAKFAST - Plan Plan:: Code status: DNR. IMPRESSION/PLAN Viral gastroenteritis, improving each day, less nausea, adjusted Phenergan yesterday, starting to eat more, becoming more euvolemic. hemodynamically stable , negative eosinophilia. Neutrophils 75%. Negative C. difficile, no gross blood cultures, due to GI intolerance will hold iron, PO potassium. Continue holding laxatives. Add Imodium today Dehydration, volume deficit, becoming more euvolemic, tolerating more fluids, keep IV one more day however decrease potassium to 20 mEq. Hypernatremia, now resolved, on admission she was approximately 1.4 L free water deficit with concomittent vascular deficit; corrected with free water Hypercoagulation, INR 3.1. Hold tonight's dose of Coumadin Hypocalcemia: Ca 6.5--corrected to albumin at 7.4, asymptomatic, Magnesium normal. 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 We'll continue supplementation. Chronic medical conditions COPD: Stable. Continue baseline oxygen, Pulmicort, Brovana, Dalirespo, Spiriva, and prn albuterol. CAD/HFpEF/HTN/HLD: Currently asymptomatic. Continue metoprolol, lisinopril, hold statin tonight due to GI symptoms now. 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 Atrial fibrillation: Maintained in sinus rhythm on sotalol, hold tonight's Coumadin. GERD: Symptoms last night, replace back on PPI, was holding it due to acute diarrhea. Suyapa's granulomatosis: Stable. Continue prednisone. Anemia: Stable without evidence of bleeding. Hold iron in the setting of nausea. Hypothyroidism: Stable with recent TSH normal. Continue levothyroxine. Low vitamin D: Stable. Continue vitamin D supplementation. Depression: Better affect today however she has had some recent increase in her depression mainly related to recent deaths of friends and neighbors. Likely situational, may have to increase dosage of Effexor Overall plan, likely getting benefit from gentle IV fluids with potassium, will decrease potassium content, continue to encourage orals, add Imodium today. monitors fluid status, monitor electrolytes, hold Coumadin tonight. Stool culture/study surveillance. Monitor carefully for any infectious GI/ peritonitis pathology. Patient quite reticent regarding going back to shelter too soon. [facility] residents with multiple episodes of GI disturbance so patient would have high risk of readmission if we send her home to soon-- will attempt to get her back to shelter tomorrow.
[2017-03-19] MEDS: D5 1/2 NS w/ 20 mEq/L KCl 1,000 ML IV SCH (10:58)
[2017-03-19] MEDS: Loperamide 2 MG Cap PO PRN (16:23)
[2017-03-19] MEDS: predniSONE 5 MG Tab PO SCH (17:10)
[2017-03-19] MEDS ORDERED: GI Cocktail 45 ML BOTTLE PO PRN (20:01)
[2017-03-19] MEDS: Simvastatin 20 MG Tab PO SCH (20:25)
[2017-03-20] MEDS: Levothyroxine 88 MCG Tab PO SCH (06:41)
[2017-03-20] MEDS: Arformoterol 15 MCG/2 ML Neb Soln NEB SCH ×2 (07:17→20:33)
[2017-03-20] MEDS: Ondansetron 4 MG/2 ML SDV IVPUSH PRN (07:28)
[2017-03-20] MEDS: Cholecalciferol (Vitamin D3) 1,000 Unit Tab PO SCH ×2 (08:13→08:21)
[2017-03-20] MEDS: Calcium Carbonate 500 MG Tab.Chew PO SCH (08:13)
[2017-03-20] MEDS: Sotalol 80 MG Tab PO SCH (08:13)
[2017-03-20] MEDS: Lutein/Minerals/Vitamins A, C & E Tab PO SCH ×2 (08:13→08:21)
[2017-03-20] MEDS: Pantoprazole 40 MG Tab.CR PO SCH (08:13)
[2017-03-20] MEDS: predniSONE 10 MG Tab PO SCH (08:13)
[2017-03-20] MEDS: Venlafaxine 150 MG Cap.ER PO SCH (08:14)
[2017-03-20] MEDS: Roflumilast 500 MCG Tab PO SCH (08:14)
[2017-03-20] MEDS: Lisinopril 5 MG Tab PO SCH (08:14)
[2017-03-20] MEDS: Metoprolol Tartrate 25 MG Tab PO SCH ×2 (08:14→21:58)
[2017-03-20] MEDS: Budesonide 0.5 MG/2 ML Neb Susp INH SCH ×2 (08:51→21:58)
[2017-03-20] MEDS: Tiotropium Inhaler 18 MCG Inhalation Powder Cap Kit of 5 INH SCH (09:45)
[2017-03-20] MEDS: Potassium Chloride 10 MEQ Tab.ER PO SCH (11:06)
[2017-03-20] MEDS: D5 1/2 NS w/ 20 mEq/L KCl 1,000 ML IV SCH (11:08)
[2017-03-20] MEDS ORDERED: Sodium Chloride 0.9% 5 ML Syringe FLUSH PRN (12:00)
--- NOTE | 2017-03-20 12:08 | PCM.PN ---
- General Info Date of Service: 03/20/17 Functional Status: Reports: Pain Controlled, New Symptoms (More nauseous today, tearful, afraid to go back to [place] [facility] today). Denies: Tolerating Diet - Review of Systems General: Denies: Fever, Appetite HEENT: Reports: No Symptoms Pulmonary: Reports: No Symptoms Cardiovascular: Reports: Dyspnea on Exertion. Denies: Chest Pain, Edema Gastrointestinal: Reports: Diarrhea, Nausea. Denies: Abdominal Pain, Vomiting Genitourinary: Reports: No Symptoms Neurological: Reports: Confusion (Considerable Confusion during night,) Psychiatric: Reports: Depression, Anxiety, Other (Tearful, afraid to go back to [place] [facility] today) - Patient Data Vitals - Most Recent: Last Vital Signs Temp 98.6 F 03/20/17 07:00 Pulse 70 03/20/17 08:14 Resp 18 03/20/17 07:00 BP 164/78 H 03/20/17 08:14 Pulse Ox 96 03/20/17 07:00 Weight - Most Recent: 119 lb 11.2 oz I&O - Last 24 Hours: Intake & Output 03/19/17 03/20/17 03/20/17 22:59 06:59 14:59 Intake Total 568 216 Output Total 400 500 Balance 168 -284 Lab Results Last 24 Hours: Laboratory Results - last 24 hr 03/20/17 Range/Units 07:30 PT 23.2 H (8.9-11.4) SEC INR 2.2 H (0.9-1.1) Erick Results Last 24 Hours: Microbiology 03/16/17 19:50 Aerobic Blood Culture - Preliminary Blood - Venous - Lab Draw NO GROWTH AFTER 3 DAYS Anaerobic Blood Culture - Preliminary NO GROWTH AFTER 3 DAYS 03/16/17 18:40 Aerobic Blood Culture - Preliminary Blood - Venous NO GROWTH AFTER 3 DAYS Anaerobic Blood Culture - Preliminary NO GROWTH AFTER 3 DAYS 03/16/17 20:53 Stool Aerobic Culture - Preliminary Stool / Feces Med Orders - Current: Current Medications Hydrocodone Bitart/Acetaminophen ([place] 325-5 Mg) 1 - 2 tab PO Q6H PRN PRN Reason: Pain Al Hydroxide/Mg Hydroxide (Gi Cocktail) 45 ml PO BID PRN PRN Reason: Heartburn Last Admin: 03/19/17 20:23 Dose: 45 ml Albuterol (Proventil Neb Soln) 2.5 mg NEB QID PRN PRN Reason: Shortness of Breath Arformoterol Tartrate (Brovana) 15 mcg NEB BIDRT [facility] Last Admin: 03/20/17 07:17 Dose: 15 mcg Budesonide (Pulmicort) 0.5 mg INH BID [facility] Last Admin: 03/20/17 08:51 Dose: 0.5 mg Calcium Carbonate/Glycine (Tums) 1,000 mg PO BID [facility] Last Admin: 03/20/17 08:13 Dose: 1,000 mg Cholecalciferol (Vitamin D3) 1,000 units PO DAILY@0800 [facility] Last Admin: 03/20/17 08:21 Dose: Not Given Promethazine HCl 12.5 mg/ (Sodium Chloride) 50.5 mls @ 200 mls/hr IV Q4H PRN PRN Reason: Nausea/Vomiting Last Admin: 03/19/17 20:01 Dose: 200 mls/hr Potassium Chloride/Dextrose/Sod Cl (D5 1/2 Ns W/ 20 Meq/L Kcl) 1,000 mls @ 40 mls/hr IV DAILY@1030 [facility] Last Admin: 03/20/17 11:08 Dose: Not Given Levothyroxine Sodium (Synthroid) 88 mcg PO DAILY@0600 [facility] Last Admin: 03/20/17 06:41 Dose: 88 mcg Lisinopril (Prinivil) 5 mg PO DAILY [facility] Last Admin: 03/20/17 08:14 Dose: 5 mg Loperamide HCl (Imodium) 4 mg PO Q6H PRN PRN Reason: Diarrhea Last Admin: 03/19/17 16:23 Dose: 4 mg Metoprolol Tartrate (Lopressor) 12.5 mg PO BID [facility] Last Admin: 03/20/17 08:14 Dose: 12.5 mg Multivitamins/Minerals (Ocuvite) 1 each PO DAILY@0800 [facility] Last Admin: 03/20/17 08:21 Dose: Not Given Ondansetron HCl (Zofran) 4 mg IVPUSH Q6H PRN PRN Reason: Nausea/Vomiting Last Admin: 03/20/17 07:28 Dose: 4 mg Pantoprazole Sodium (Protonix) 40 mg PO ACBREAKFAST [facility] Last Admin: 03/20/17 08:13 Dose: 40 mg Potassium Chloride (Klor-Con 10) 10 meq PO DAILY [facility] Last Admin: 03/20/17 11:06 Dose: Not Given Prednisone (Prednisone) 5 mg PO DAILY@1700 [facility] Last Admin: 03/19/17 17:10 Dose: 5 mg Prednisone (Prednisone) 10 mg PO ACBREAKFAST [facility] Last Admin: 03/20/17 08:13 Dose: 10 mg Roflumilast (Daliresp) 500 mcg PO DAILY [facility] Last Admin: 03/20/17 08:14 Dose: 500 mcg Simvastatin (Zocor) 20 mg PO BEDTIME [facility] Last Admin: 03/19/17 20:25 Dose: 20 mg Sodium Chloride (Syrex Flush) 5 ml FLUSH Q8HR PRN PRN Reason: Keep Vein Open Last Admin: 03/16/17 18:57 Dose: 5 ml Sotalol HCl (Betapace) 120 mg PO DAILY [facility] Last Admin: 03/20/17 08:13 Dose: 120 mg Tiotropium [place] (Spiriva Handihaler) [facility] Last Admin: 03/19/17 09:08 Dose: 18 mcg Venlafaxine HCl (Effexor Xr) 150 mg PO DAILY [facility] Last Admin: 03/20/17 08:14 Dose: 150 mg Warfarin Sodium (Coumadin) 2.5 mg PO Mo@1800 [facility] Last Admin: 03/16/17 23:42 Dose: Not Given Warfarin Sodium (Coumadin) 5 mg PO SuTuWeThFrSa@1800 [facility] Discontinued Medications Calcium Carbonate/Glycine (Tums) 500 mg PO ONETIME ONE Stop: 03/17/17 18:01 Last Admin: 03/17/17 17:43 Dose: 500 mg Sodium Chloride (Normal Saline) 1,000 mls @ 999 mls/hr IV .BOLUS ONE Stop: 03/16/17 18:12 Last Admin: 03/16/17 17:49 Dose: 999 mls/hr Sodium Chloride (Normal Saline) 1,000 mls @ 75 mls/hr IV ASDIRECTED [facility] Last Admin: 03/16/17 21:28 Dose: 75 mls/hr Promethazine HCl 12.5 mg/ (Sodium Chloride) 50.5 mls @ 200 mls/hr IV Q6H PRN PRN Reason: Nausea/Vomiting Last Admin: 03/18/17 11:51 Dose: 200 mls/hr Potassium Chloride 20 meq/ (Premix) 100 mls @ 50 mls/hr IV ONETIME ONE Stop: 03/17/17 17:59 Dextrose/Water (Dextrose 5% In Water) 1,000 mls @ 75 mls/hr IV ASDIRECTED [facility] Last Admin: 03/18/17 02:23 Dose: 75 mls/hr Potassium Chloride (Kcl 20 Meq In Water 100 Ml) 100 mls @ 50 mls/hr IV ONETIME ONE Stop: 03/17/17 17:59 Last Admin: 03/17/17 15:52 Dose: 50 mls/hr Dextrose/Sodium Chloride (Dextrose 5%-1/2 Ns) 1,000 mls @ 50 mls/hr IV ASDIRECTED [facility] Last Admin: 03/18/17 10:34 Dose: 50 mls/hr Potassium Chloride/Dextrose/Sod Cl (D5 1/2 Ns W/ 40 Meq/L Kcl) 1,000 mls @ 50 mls/hr IV ASDIRECTED [facility] Last Admin: 03/18/17 15:45 Dose: 50 mls/hr Sodium Chloride (Normal Saline) Confirm Administered Dose 50 mls @ as directed .ROUTE .STK-MED ONE Stop: 03/18/17 20:24 Last Admin: 03/18/17 20:31 Dose: 50 ml Sodium Chloride (Normal Saline) Confirm Administered Dose 50 mls @ as directed .ROUTE .STK-MED ONE Stop: 03/19/17 00:18 Last Admin: 03/19/17 01:32 Dose: Not Given Ondansetron HCl (Zofran) 4 mg IVPUSH ONETIME ONE Stop: 03/16/17 17:13 Last Admin: 03/16/17 17:49 Dose: 4 mg Potassium Bicarb/Potassium Chloride (Potassium Chloride, Effervescent) 25 meq PO ONETIME ONE Stop: 03/17/17 17:31 Last Admin: 03/17/17 17:43 Dose: 25 meq Potassium Chloride (Klor-Con 10) 20 meq PO BIDMEALS [facility] Last Admin: 03/18/17 13:46 Dose: Not Given Pravastatin Sodium (Pravachol) 40 mg PO BEDTIME [facility] Last Admin: 03/17/17 21:20 Dose: Not Given - Exam Quality Assessment: Supplemental Oxygen General: Alert, Oriented, Mild Distress Neck: Supple Lungs: Decreased Breath Sounds. No: Crackles, Rales, Rhonchi Cardiovascular: Regular Rate, Regular Rhythm GI/Abdominal Exam: Soft, Non-Tender, No Distention, Guarding, Mass, Other ( Liquid stool in colostomy) Back Exam: No: CVA Tenderness (L), CVA Tenderness (R) Extremities: No Pedal Edema Skin: Other (Extreme brawniness lower extremities upper arms) Psy/Mental Status: Alert, Anxious, Depressed, Agitated - Problem List Review Problem List Initiated/Reviewed/Updated: Yes - Plan Plan:: Update today, patient confused during the night, alert and lucid this morning, anxious, ongoing nausea, tearful afraid of going back to [facility]. Started Imodium yesterday. IMPRESSION/PLAN Viral gastroenteritis, making some progress however a slight setback today with ongoing nausea, discontinue Phenergan, add Zofran higher doses. Now euvolemic, hemodynamically stable, negative eosinophilia. Neutrophils 76%. Negative C. difficile, blood culture surveillance no growth, stool cultures negative, due to GI intolerance will hold iron, PO potassium. Continue holding laxatives. Continue Imodium. Flat and upright plate today, CBC and sedimentation rate, hold unnecessary medicines, hold Daliresp as this could be contributing. Dehydration, quite volume depleted on admission, however now euvolemic, saline lock fluids Hypernatremia, now resolved, on admission she was approximately 1.4 L free water deficit with concomittent vascular deficit; corrected with free water Hypercoagulation, INR now therapeutic, restart Coumadin tonight. Hypocalcemia: Ca 6.5--corrected to albumin at 7.4, asymptomatic, Magnesium normal. 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 We'll continue supplementation. Code status: DNR. Chronic medical conditions COPD: Stable. Continue baseline oxygen, Pulmicort, Brovana, Dalirespo, Spiriva, and prn albuterol. CAD/HFpEF/HTN/HLD: Currently asymptomatic. Continue metoprolol, lisinopril, hold statin tonight due to GI symptoms now. 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 Atrial fibrillation: Maintained in sinus rhythm on sotalol, hold tonight's Coumadin. GERD: Symptoms last night, replace back on PPI, was holding it due to acute diarrhea. Suyapa's granulomatosis: Stable. Continue prednisone. Anemia: Stable without evidence of bleeding. Hold iron in the setting of nausea. Hypothyroidism: Stable with recent TSH normal. Continue levothyroxine. Low vitamin D: Stable. Hold unnecessary medications today/vitamins. Depression: vaccilates in her affect; she has had some recent increase in her depression mainly related to recent deaths of friends and neighbors. Likely situational, may have to increase dosage of Effexor Overall plan, sedimentation rate, CBC, saline lock fluids, hold unnecessary medications including Daliresp. Abdominal flat plate and upright today. Wanted to send patient back to the [place] [facility] today however patient crying and refuses to go back. conversation with perinatal social worker today Meng--with multiple admissions concerning regarding patient status. We discuss hospice however doubtful if this is an option right now. Most likely will have to have an extensive individual treatment plan at [facility] to prevent readmissions.
[2017-03-20] MEDS ORDERED: Ondansetron 4 MG/2 ML SDV IVPUSH PRN (13:11)
[2017-03-20] MEDS: Ondansetron 8 MG in Sodium Chloride 0.9% 50 ML IV PRN ×2 (13:30→19:30)
[2017-03-20] MEDS ORDERED: Ondansetron 8 MG in Sodium Chloride 0.9% 50 ML IV PRN (14:00)
[2017-03-20] MEDS: predniSONE 5 MG Tab PO SCH (17:56)
[2017-03-20] MEDS: Warfarin 5 MG Tab PO SCH (18:21)
[2017-03-20] MEDS: Promethazine 12.5 MG in Sodium Chloride 0.9% 50 ML IV PRN (21:26)
[2017-03-20] MEDS: Simvastatin 20 MG Tab PO SCH (21:58)
[2017-03-21] MEDS: Loperamide 2 MG Cap PO PRN ×2 (03:26→20:25)
[2017-03-21] MEDS: Levothyroxine 88 MCG Tab PO SCH (05:24)
[2017-03-21] MEDS: Pantoprazole 40 MG Tab.CR PO SCH (06:50)
[2017-03-21] MEDS: Ondansetron 8 MG in Sodium Chloride 0.9% 50 ML IV PRN ×2 (06:54→14:47)
[2017-03-21] MEDS: Sodium Chloride 0.9% 5 ML Syringe FLUSH PRN (07:04)
[2017-03-21] MEDS: Arformoterol 15 MCG/2 ML Neb Soln NEB SCH ×2 (08:50→20:25)
[2017-03-21] MEDS: predniSONE 10 MG Tab PO SCH (08:50)
[2017-03-21] MEDS: Sotalol 80 MG Tab PO SCH (08:51)
[2017-03-21] MEDS: Venlafaxine 150 MG Cap.ER PO SCH (08:52)
[2017-03-21] MEDS: Cholecalciferol (Vitamin D3) 1,000 Unit Tab PO SCH (08:52)
[2017-03-21] MEDS: Metoprolol Tartrate 25 MG Tab PO SCH ×2 (08:52→20:37)
[2017-03-21] MEDS: Lisinopril 5 MG Tab PO SCH (08:53)
[2017-03-21] MEDS: Budesonide 0.5 MG/2 ML Neb Susp INH SCH ×2 (08:53→20:51)
[2017-03-21] MEDS: Tiotropium Inhaler 18 MCG Inhalation Powder Cap Kit of 5 INH SCH (09:05)
[2017-03-21] MEDS: Potassium Chloride 10 MEQ Tab.ER PO SCH (09:05)
[2017-03-21] MEDS ORDERED: Bismuth Subsalicylate 262 MG Tab.Chew PO PRN ×2 (09:57→11:01)
--- NOTE | 2017-03-21 13:46 | PN ---
03/21/2017 PATIENT NAME: ANNAMARIE HUTTON SUBJECTIVE: This is an 82-year-old female patient who is hospitalized due to abdominal pain, diarrhea. The patient states that she is still very miserable today. She is very nauseated. She states that every time she eats, her stomach starts to hurt. She gets really nauseated. The patient does have a colostomy in place. She does state that every time she eats she has more out of her colostomy, but it is usually just water come out of her colostomy. She denies any fevers. She states she does not really have a good appetite. She does not feel well overall. OBJECTIVE: VITAL SIGNS: Today the patient's weight is 119 pounds, pulse is 62, blood pressure is 117/48, respiratory rate is 18, oxygen saturation on 1-1/2 L nasal cannula is 96%. GENERAL: This is an elderly white female, in no acute distress. She does seem distressed and upset to her stomach at this time. LUNGS: Sounds are clear throughout upper lobes. HEART: Rate is irregularly regular consistent with atrial fibrillation. ABDOMEN: Generalized mildly tender with hyperactive bowel sounds noted on exam. LABORATORY DATA: The patient's lab work today, she had amylase, which is in normal range at 42; lipase normal range at 240. The patient's lab work yesterday, CBC showed a white count in range at 8.2. INR yesterday was 2.2. IMPRESSION AND PLAN: 1. Gastroenteritis with a colostomy. Plan: The patient continues to be very nauseated. We will continue with Zofran and Phenergan as needed for nausea. The patient's C diff was negative. The patient's stool culture was negative. We will continue with Protonix 40 mg p.o. daily. The patient's abdominal x-ray, flat and upright, was obtained yesterday showed no air fluid levels, unremarkable per Radiology. We will continue with Tums twice a day, Imodium p.r.n., and we can try some Pepto- Bismol today as needed. We are going to change her diet from a regular diet to regular diet with no milk or milk products to see if this helps also, most likely could be just a viral gastroenteritis. 2. History of chronic obstructive pulmonary disease. Plan: Continue with Brovana and Pulmicort nebulizers twice a day. We will also continue with Spiriva inhaler once a day. We will continue with prednisone 5 mg daily at 5:00 p.m. and 10 mg in the morning. Continue with Daliresp 500 mcg daily. Nursing staff may hold Daliresp if needed if they think that this helps her stomach. 3. Hypothyroidism. Plan: Continue with levothyroxine 88 mcg daily. 4. History of hypertension. Plan: Continue with lisinopril 5 mg daily along with metoprolol tartrate 12.5 mg twice a day. Blood pressure has been well controlled. 5. Hyperlipidemia. Plan: Continue with Zocor 20 mg daily. 6. Chronic atrial fibrillation. Plan: Continue with Betapace 120 mg daily along with Coumadin as ordered. The patient's INR yesterday was in therapeutic range at 2.2. 7. History of depression. Plan: Continue with Effexor at this time. We will try to hold to see if this also helps with patient's GI distress, if it does not, we will restart it again tomorrow. Overall plan: we will see if the patient improves without milk or milk products in her diet, try some Pepto-Bismol also, and see if this helps her dyspepsia. We will see if the patient improves tomorrow. /[id number]/MODL MTDD
[2017-03-21] MEDS: predniSONE 5 MG Tab PO SCH (17:20)
[2017-03-21] MEDS: Warfarin 5 MG Tab PO SCH (17:23)
[2017-03-21] MEDS: Simvastatin 20 MG Tab PO SCH (20:37)
[2017-03-22] MEDS: Ondansetron 8 MG in Sodium Chloride 0.9% 50 ML IV PRN ×2 (00:39→12:23)
[2017-03-22] MEDS: Promethazine 12.5 MG in Sodium Chloride 0.9% 50 ML IV PRN (05:02)
[2017-03-22] MEDS: Levothyroxine 88 MCG Tab PO SCH (06:17)
[2017-03-22] MEDS: predniSONE 10 MG Tab PO SCH (07:57)
[2017-03-22] MEDS: Pantoprazole 40 MG Tab.CR PO SCH (07:59)
[2017-03-22] MEDS: Tiotropium Inhaler 18 MCG Inhalation Powder Cap Kit of 5 INH SCH (08:00)
[2017-03-22] MEDS: Sotalol 80 MG Tab PO SCH (08:02)
[2017-03-22] MEDS: Cholecalciferol (Vitamin D3) 1,000 Unit Tab PO SCH (08:02)
[2017-03-22] MEDS: Arformoterol 15 MCG/2 ML Neb Soln NEB SCH ×2 (08:02→20:00)
[2017-03-22] MEDS: Lisinopril 5 MG Tab PO SCH (08:04)
[2017-03-22] MEDS: Metoprolol Tartrate 25 MG Tab PO SCH ×2 (08:05→20:43)
[2017-03-22] MEDS: Budesonide 0.5 MG/2 ML Neb Susp INH SCH ×2 (08:05→20:04)
[2017-03-22] MEDS: Potassium Chloride 10 MEQ Tab.ER PO SCH (08:12)
[2017-03-22] MEDS: Venlafaxine 150 MG Cap.ER PO SCH (11:58)
--- NOTE | 2017-03-22 12:04 | PN ---
03/22/2017 PATIENT NAME: ANNAMARIE HUTTON SUBJECTIVE: The patient states that last night before she went to bed, she felt really good. She says now she woke up this morning, and she has been feeling very nauseated. She says she ate half of her Kisw[place]ili toast and she started getting really nauseated. She did not throw up, but her stomach started hurting again. She says she still just has water coming out of her colostomy bag. Her abdomen is very tender. She just does not feel good again today. She has no appetite. OBJECTIVE: VITAL SIGNS: Today, temperature is 97.0, pulse is 68. Her weight is 119 pounds. Blood pressure is 163/68, respiratory rate is 20, oxygen saturations on 2 L nasal cannula is 98%. The patient did not have any lab work drawn today. The patient's amylase yesterday was 42, lipase was 240 both within normal range. IMPRESSION AND PLAN: 1. Gastroenteritis with colostomy. The patient continued to be very nauseated. We will continue with Zofran and Phenergan as needed for nausea. The patient's C diff was negative. The patient's stool culture was also negative. We will continue with Protonix 40 mg p.o. daily in the morning. The patient's abdominal x-ray, flat and upright that she had obtained on Thursday showed nonspecific bowel gas pattern. No free air. No air-fluid levels per Radiology. We will continue patient with Tums twice a day. She can have Imodium as needed. We did try some Pepto-Bismol that she can take as needed for dyspepsia. We will continue her on a regular diet. She does not really eat much, did not have much of an appetite, but she can have no milk or milk products. The patient does not seem to be improving much at this time, we will repeat a CT abd/pelvis today. 2. Chronic obstructive pulmonary disease. Continue with Brovana and Pulmicort nebulizers twice a day. Continue with Spiriva inhaler once a day. Also have her continue on her prednisone 5 mg daily at 5 p.m. and then 10 mg in the morning. Continue to hold Daliresp 500 mcg at this time. 3. Hypothyroidism. Continue with levothyroxine 88 mcg daily. 4. History of hypertension. Continue with lisinopril 5 mg daily, metoprolol tartrate 12.5 mg twice daily. The patient's blood pressure has been controlled while here in the hospital. 5. Hyperlipidemia. Continue with Zocor 20 mg daily. 6. Chronic atrial fibrillation. Continue with Betapace 120 mg daily along with Coumadin dose as ordered. The patient's INR on Thursday was 2.2. We will recheck INR in the morning. 7. History of depression. Continue with Effexor at this time. We did hold that yesterday, did not improve patient's GI distress. We will restart patient on her Effexor. OVERALL PLAN: The patient does not seem to be improving. Will repeat CT scan of her abdomen and pelvis today. The patient's stool studies have been negative so far. /[id number]/MODL MTDD
[2017-03-22] MEDS: Sodium Chloride 0.9% 50 ML SDV FLUSH ONE ×2 (15:05→20:19)
[2017-03-22] MEDS: Iopamidol 612 MG/ML 75 ML Bottle IVPUSH ONE ×2 (15:05→20:19)
[2017-03-22] MEDS: predniSONE 5 MG Tab PO SCH (17:47)
[2017-03-22] MEDS: Warfarin 5 MG Tab PO SCH (17:47)
[2017-03-22] MEDS: Simvastatin 20 MG Tab PO SCH (20:05)
[2017-03-23] MEDS: Levothyroxine 88 MCG Tab PO SCH (06:23)
[2017-03-23] MEDS: Arformoterol 15 MCG/2 ML Neb Soln NEB SCH ×2 (07:47→20:01)
[2017-03-23] MEDS: Cholecalciferol (Vitamin D3) 1,000 Unit Tab PO SCH (07:54)
[2017-03-23] MEDS: Pantoprazole 40 MG Tab.CR PO SCH (07:54)
[2017-03-23] MEDS: predniSONE 10 MG Tab PO SCH (07:54)
[2017-03-23] MEDS: Sodium Chloride 0.9% 5 ML Syringe FLUSH PRN (07:55)
[2017-03-23] MEDS: Budesonide 0.5 MG/2 ML Neb Susp INH SCH ×2 (08:42→20:43)
[2017-03-23] MEDS: Metoprolol Tartrate 25 MG Tab PO SCH ×2 (09:04→20:42)
[2017-03-23] MEDS: Venlafaxine 150 MG Cap.ER PO SCH (09:04)
[2017-03-23] MEDS: Sotalol 80 MG Tab PO SCH (09:06)
[2017-03-23] MEDS: Lisinopril 5 MG Tab PO SCH (09:06)
[2017-03-23] MEDS: Potassium Chloride 10 MEQ Tab.ER PO SCH (09:17)
[2017-03-23] MEDS: Roflumilast 500 MCG Tab PO SCH (09:17)
[2017-03-23] MEDS: Tiotropium Inhaler 18 MCG Inhalation Powder Cap Kit of 5 INH SCH (09:35)
--- NOTE | 2017-03-23 11:51 | PN ---
03/23/2017 PATIENT NAME: ANNAMARIE HUTTON SUBJECTIVE: The patient states she is feeling better today. She says she was able to eat about half of her breakfast. She is not nauseated this morning. She just overall feels better. She states that she is still getting mostly liquid out of her colostomy bag. She says her abdomen quite is not as tender today as it was yesterday. OBJECTIVE: VITAL SIGNS: The patient's weight today is 118 pounds, pulse is 71, blood pressure is 126/66, respiratory rate is 20, oxygen saturations are 98% on 2 L nasal cannula. GENERAL: This is an elderly white female in no acute distress. HEART: Tones are irregularly irregular consistent with atrial fibrillation. ABDOMEN: Hyperactive bowel sounds, slightly tender with palpation. The patient continues to have a light ndiaye liquid stool coming out of her colostomy. LUNGS: Sounds are very diminished throughout lung zaldivar. No pedal edema noted on exam. LABORATORY DATA: The patient's lab work today CBC shows a white count within normal range at 9.9, hemoglobin stable at 11.3. The patient's INR is greater than 8.0. The patient's lipase and amylase that were obtained yesterday were both within normal range. IMPRESSION AND PLAN: 1. Gastroenteritis with colostomy. Plan: The patient's nausea has improved today. We will continue with Zofran IV. I did discontinue patient's Phenergan, it did make her feel kind of loopy. The patient's C. diff has been negative. The patient's stool cultures were also negative. We will continue the patient on Protonix 40 mg orally daily in the morning. The patient's CT scan of the abdomen that we performed yesterday shows no new findings overall per Radiology. We will continue patient on Tums twice a day, also on Imodium as needed. Discontinue the Pepto-Bismol, it was never given. Continue her on a regular diet, but will avoid milk and milk products. 2. Chronic obstructive pulmonary disease. Plan: Continue with Brovana and Pulmicort nebulizers twice a day. Continue with Spiriva inhaler once a day. Also, continue the patient on prednisone 5 mg daily at 5:00 p.m. and then 10 mg in the morning. We will continue to hold Daliresp at this time. 3. Hypothyroidism. Plan: Continue with levothyroxine 88 mcg daily. 4. History of hypertension. Continue with lisinopril 5 mg daily, metoprolol tartrate 12.5 mg twice daily. We will continue to monitor patient's blood pressure. 5. Hyperlipidemia. Plan: Continue with Zocor 20 mg daily. 6. Chronic atrial fibrillation. Continue with Betapace 120 mg daily. We are going to hold patient's Coumadin at this time. The patient's INR today is greater than 8.0. We are going to give the patient a one time dose of vitamin K 3 mg subcutaneously today. Recheck INR in the morning. The patient did have some oozing of blood from her IV site. 7. History of depression. Plan: Continue with Effexor at this time. OVERALL PLAN: The patient does seem to be improving slightly. May consider the patient going back to half-way tomorrow if her INR does come down tomorrow and her nausea and abdominal pain continue to improve. The patient does have some thickening of the wall of stomach per her CAT scan. May consider an EGD outpatient next week in the clinic by Dr. Madie Terry. /[id number]/MODL
[2017-03-23] MEDS: Ondansetron 8 MG in Sodium Chloride 0.9% 50 ML IV PRN (14:02)
[2017-03-23] MEDS ORDERED: Promethazine Topical Gel 0.5 ML Syringe TOP PRN (16:31)
[2017-03-23] MEDS: Metoclopramide 10 MG/2 ML SDV IVPUSH PRN (17:32)
[2017-03-23] MEDS: predniSONE 5 MG Tab PO SCH (17:36)
[2017-03-23] MEDS: Simvastatin 20 MG Tab PO SCH (20:42)
[2017-03-24] MEDS: Levothyroxine 88 MCG Tab PO SCH (06:26)
[2017-03-24] MEDS: Arformoterol 15 MCG/2 ML Neb Soln NEB SCH ×2 (07:31→20:00)
[2017-03-24] MEDS: Cholecalciferol (Vitamin D3) 1,000 Unit Tab PO SCH ×2 (08:08→12:52)
[2017-03-24] MEDS: Potassium Chloride 10 MEQ Tab.ER PO SCH (08:08)
[2017-03-24] MEDS: Pantoprazole 40 MG Tab.CR PO SCH (08:08)
[2017-03-24] MEDS: predniSONE 10 MG Tab PO SCH (08:09)
[2017-03-24] MEDS: Budesonide 0.5 MG/2 ML Neb Susp INH SCH ×2 (08:43→20:00)
[2017-03-24] MEDS: Tiotropium Inhaler 18 MCG Inhalation Powder Cap Kit of 5 INH SCH (09:40)
[2017-03-24] MEDS: Metoclopramide 10 MG/2 ML SDV IVPUSH PRN (09:50)
[2017-03-24] MEDS: Lutein/Minerals/Vitamins A, C & E Tab PO SCH (12:52)
[2017-03-24] MEDS: Metoprolol Tartrate 25 MG Tab PO SCH ×2 (12:53→20:50)
[2017-03-24] MEDS: Calcium Carbonate 500 MG Tab.Chew PO SCH ×2 (12:53→20:52)
[2017-03-24] MEDS: Lisinopril 5 MG Tab PO SCH (12:53)
[2017-03-24] MEDS: Sotalol 80 MG Tab PO SCH (12:53)
[2017-03-24] MEDS: Venlafaxine 150 MG Cap.ER PO SCH (13:05)
--- NOTE | 2017-03-24 15:01 | PN ---
03/24/2017 PATIENT NAME: ANNAMARIE HUTTON CHIEF COMPLAINT: Drank orange juice this morning, now complaining of severe nausea. She had been feeling quite good. I did anticipate discharge this morning, however, due to her nausea, she has a little bit of a setback today, although, her vital signs were stable. BRIEF HISTORY: The patient has been in the hospital acute care, due to ongoing GI, nausea, with some abdominal pain. She does have significant liquid stool in her colostomy. However, yesterday she had been improving good. Stool cultures have been negative. She is on a PPI therapy. She did recently had a CT scan of the abdomen, which showed no new findings, nothing concerning. IV Phenergan has been discontinued. Reglan was started and the patient did state that this makes her feel better. Yesterday, she did have significant INR elevation of 8. Vitamin K was given, it is now 2.8. PHYSICAL EXAMINATION: VITAL SIGNS: Temperature 98.2, heart rate 68, blood pressure slightly low around 95 systolically, however, asymptomatic, O2 sats on 2 L is 96%. GENERAL: She is in mild distress this morning, due to ongoing nausea. HEART: Tones are irregular. Does have history of atrial fibrillation. ABDOMEN: Good bowel tones. No real tenderness, significant ndiaye liquid out of colostomy. LUNGS: Diminished, decreased breath sounds. EXTREMITIES: Negative for pedal edema. SKIN/INTEGUMENTARY: Upper and lower extremities extreme brawniness noted. LABORATORY DATA: Labs this morning the INR improved down to 2.8. She does take Coumadin. White count 9.9, hemoglobin 11.3, and hematocrit 34.5. IMPRESSION/PLAN: 1. Gastroenteritis. This seems to be improving. She does have a little setback today. Anticipate discharge in the a.m. Ahold orange juice. She will be set up for upper endoscopy here at [facility] within one to two weeks post discharge. 2. Chronic obstructive pulmonary disease. This does seem to be stable. She is on long-acting beta-2 agonist of Brovana, inhaled cortical steroid nebulizers of Pulmicort. She is also on Spiriva anticholinergic, also on chronic steroids. She was on Daliresp, we are holding this, due to her significant GI symptoms. 3. Hypothyroidism, stable. 4. History of hypertension. She is on low-dose lisinopril. Her blood pressure is slightly low today, so holding parameters. 5. Hyperlipidemia. She is on statin therapy. 6. Atrial fibrillation that is chronic, controlled variable rhythm. Continue with Betapace. INR now therapeutic at 2.8, with history of TAVR. 7. Depression, she is on Effexor, seems stable. /[id number]/MODL
[2017-03-24] MEDS: predniSONE 5 MG Tab PO SCH (16:21)
[2017-03-24] MEDS: Warfarin 5 MG Tab PO SCH (17:53)
[2017-03-24] MEDS: Simvastatin 20 MG Tab PO SCH (20:49)
[2017-03-25 05:55] VITALS: BP 106/53
[2017-03-25] MEDS: Levothyroxine 88 MCG Tab PO SCH (05:57)
[2017-03-25] MEDS: Metoclopramide 10 MG/2 ML SDV IVPUSH PRN (05:58)
[2017-03-25] MEDS: Sodium Chloride 0.9% 5 ML Syringe FLUSH PRN (06:02)
[2017-03-25] MEDS: Pantoprazole 40 MG Tab.CR PO SCH (06:45)
[2017-03-25] MEDS: Arformoterol 15 MCG/2 ML Neb Soln NEB SCH (07:19)
[2017-03-25] MEDS: predniSONE 10 MG Tab PO SCH (08:20)
[2017-03-25] MEDS: Lisinopril 5 MG Tab PO SCH (08:20)
[2017-03-25] MEDS: Venlafaxine 150 MG Cap.ER PO SCH (08:20)
[2017-03-25] MEDS: Potassium Chloride 10 MEQ Tab.ER PO SCH (08:20)
[2017-03-25] MEDS: Sotalol 80 MG Tab PO SCH (08:21)
[2017-03-25] MEDS: Metoprolol Tartrate 25 MG Tab PO SCH (08:21)
[2017-03-25] MEDS: Calcium Carbonate 500 MG Tab.Chew PO SCH (08:22)
[2017-03-25] MEDS: Cholecalciferol (Vitamin D3) 1,000 Unit Tab PO SCH (08:22)
[2017-03-25] MEDS: Lutein/Minerals/Vitamins A, C & E Tab PO SCH (08:22)
[2017-03-25] MEDS: Budesonide 0.5 MG/2 ML Neb Susp INH SCH (08:56)
[2017-03-25] MEDS: Tiotropium Inhaler 18 MCG Inhalation Powder Cap Kit of 5 INH SCH (09:29)
--- NOTE | 2017-03-26 07:51 | DISCH ---
FINAL DIAGNOSIS: Viral gastroenteritis. HISTORY: This very fragile, complex, 82-year-old female who is a resident of [facility], was initially admitted to acute status for intermittent abdominal pain, nausea, and diarrhea. She had decreased appetite that had been worsening. She came into the ED on 03/15/2017 for these symptoms and evaluation was reassuring, and she was discharged back to [facility]; however, she came back the following day due to developing worsening abdominal pain and diarrhea. CT of the abdomen and pelvis was performed showing concern regarding gas in the urinary bladder in which the ED provider was concerned about fistulization with the bowel; however, the patient had been catheterized the night before, so air in the bladder was consistent of this and felt like it was not a concern at that time. She had ongoing nausea, so she was admitted with a diagnosis of likely viral gastroenteritis. HOSPITAL COURSE: The patient had waxing and waning hospital course regarding abdominal pain, nausea and vomiting. It was very difficult to control her nausea. Zofran did not seem to help. Phenergan did help moderately. However, she did have some altered mental status with Phenergan, this was eventually pulled and discontinued. Reglan limited doses. . She was given IV fluids. Her diet was advanced as tolerated. We held many of her medications. Her C. difficile was negative. All other stool cultures for E coli, Salmonella, Shigella, Campylobacter were also negative. Blood cultures surveillance were negative x5 days. Urine culture showed mixed erica. Multiple times attempts to discharge the patient were unsuccessful due to her ongoing nausea and vomiting. The patient was very hesitant and very reluctant to go to the long-term; however, the past 24 hours, she has felt much better, and she was hemodynamically stable, and she was willing to go back, and she was tolerating her regular diet other than milk products. Her COPD remained stable with Pulmicort and Brovana. We did hold Daliresp due to likely GI irritation. We continued with Spiriva and albuterol. She did have elevated INR up to 8 with some signs of bleeding around her IV site, so low-dose vitamin K was given and it responded well, it was 2.8. Atrial fibrillation, she remained in atrial fibrillation. She continued on beta-yakov. She did have quite of bit of stool in her colostomy. This was decreasing upon discharge. 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 We held her iron due to GI symptoms. She did have some ongoing significant GI symptoms such as nausea. Reglan did seem to improve the symptoms. Limited doses were given. She also responded well to GI cocktail periodically. PERTINENT LABS: White count remained normal. INR was 2.8. Sodium, potassium, and all electrolytes remained good. Amylase and lipase were normal. Normal GFR. She never became hemodynamically unstable. T-max in the hospital was 99.3. PHYSICAL EXAM ON DISCHARGE: VITAL SIGNS: Blood pressure 106/53, heart rate 65, weight is 117, mean arterial pressure 70, respiratory rate 20, and O2 sats 97%. LUNGS: Decreased breath sounds, however, no wheezes or crackles. CARDIOVASCULAR: Regular rhythm, rate controlled. INTEGUMENTARY: Extreme brawniness to her upper and lower extremities. No edema. GASTROINTESTINAL: Good bowel tones. Loose output on colostomy. No abdominal pain. MEDICATION CHANGES/ADJUSTMENTS: Reglan 5 mg p.o. b.i.d. for five days limited doses, GI cocktail 30 mL daily p.r.n. for heartburn. The patient can continue on all other home medications. DIETARY INSTRUCTIONS: Avoid milk products for the next three days. DISPOSITION: The patient will be discharged from the hospital. This is her best day she has felt since admission. She is well hydrated. She will report back to [facility]. FOLLOWUP/CONSULTATIONS: She will be set up for upper endoscopy at the [facility] within one month. Nurses are to report any ongoing diarrhea, nausea, vomiting, abdominal pain, or fever. MEDICAL DECISION MAKIN minutes was spent on this discharge planning and process. /[id number]/MODL MTDD
== END 2017-03-25 11:30 | DRG 392 ==
LOC: KA.ED 17:06 → KA.MS 18:22
PROVIDERS: ADMIT Physician Assistant Surgical; ATTEND Family Medicine
DX: R10.9 Unspecified abdominal pain (principal); N39.0 Urinary tract infection, site not specified; A08.4 Viral intestinal infection, unspecified; R11.2 Nausea with vomiting, unspecified; E87.0 Hyperosmolality and hypernatremia; M31.30 Wegener's granulomatosis without renal involvement; I13.0 Hypertensive heart and chronic kidney disease with heart failure and stage 1 through stage 4 chronic kidney disease, or unspecified chronic kidney disease; E86.0 Dehydration; E83.51 Hypocalcemia; R11.0 Nausea; R19.7 Diarrhea, unspecified; I48.91 Unspecified atrial fibrillation; E78.00 Pure hypercholesterolemia, unspecified; N18.9 Chronic kidney disease, unspecified; I50.9 Heart failure, unspecified; I25.2 Old myocardial infarction; J44.9 Chronic obstructive pulmonary disease, unspecified; K21.9 Gastro-esophageal reflux disease without esophagitis; F32.9 Major depressive disorder, single episode, unspecified; E03.9 Hypothyroidism, unspecified; E11.9 Type 2 diabetes mellitus without complications; I25.10 Atherosclerotic heart disease of native coronary artery without angina pectoris; E55.9 Vitamin D deficiency, unspecified; D50.9 Iron deficiency anemia, unspecified; Z88.0 Allergy status to penicillin; Z88.8 Allergy status to other drugs, medicaments and biological substances; Z79.899 Other long term (current) drug therapy; Z79.01 Long term (current) use of anticoagulants; Z95.2 Presence of prosthetic heart valve; Z87.891 Personal history of nicotine dependence
CPT/HCPCS: 36415; 74176; 96361; 96374; 99284; 99285; J2405; J7030; 74020; 74177; 80048; 80053; 81001; 82150; 83690; 83735; 85025; 85610; 85651; 87040; 87045; 87046; 87086; 87324; 94640; 94640-76; A9270-GY; J2550; J2765; J3430; J3480; J7042; J7050; J7060; Q9967

== ENCOUNTER 2017-05-21 08:01 | Inpatient (IN) | payer MEDICARE, BC ==
--- NOTE | 2017-05-21 09:53 | EDM.PDOC ---
ED HPI GENERAL MEDICAL PROBLEM - General Chief Complaint: Abdominal Pain Stated Complaint: ABDOMINAL PAIN Time Seen by Provider: 05/21/17 08:50 Source of Information: Reports: Patient History Limitations: Reports: No Limitations - History of Present Illness INITIAL COMMENTS - FREE TEXT/NARRATIVE: Patient is an 82-year-old female who presents the emergency department today with a complaint of upper abdominal pain described as bandlike spasm with nausea and no vomiting. Patient states that it started last evening after dinner. Patient resides in a nursing facility and currently does have a colostomy bag and did not notice any difference in consistency of stool. Patient was seen here March 16 for same complaint and admitted to the hospital for a [address] at that time showed concern for possible bladder fistulization. Patient denies any chest pain, shortness of breath, headache, blood in stool, or fever. Onset: Gradual Onset Date: 05/20/17 Onset Time: 18:00 Duration: Hour(s): Location: Reports: Abdomen Quality: Reports: Ache Severity: Mild Improves with: Reports: None Worsens with: Reports: None Associated Symptoms: Reports: Nausea/Vomiting. Denies: Chest Pain, Cough, Fever /Chills, Shortness of Breath Left Upper Abdomen Pain Score (Numeric/FACES): 8 - Related Data Allergies Allergy/AdvReac Type Severity Reaction Status Date / Time penicillamine Allergy Severe Anaphylactic Verified 05/21/17 08:13 Shock Penicillins Allergy Severe Anaphylactic Verified 05/21/17 08:13 Shock Cephalosporins Allergy Unknown Cannot Verified 05/21/17 08:13 Remember aspirin Allergy Other Verified 05/21/17 08:13 Carbapenems Allergy Cannot Verified 05/21/17 08:13 Remember divalproex sodium Allergy Delusions Verified 05/21/17 08:13 [facility] Home Meds: Home Meds Cholecalciferol (Vitamin D3) [Vitamin D3] 1,000 unit PO DAILY@0800 09/27/13 [ History] Levothyroxine [Synthroid] 88 mcg PO DAILY@0600 09/27/13 [History] Lutein/Minerals/Vit A,C & E [I-Silvina] 1 cap PO DAILY@0800 06/24/14 [History] Pravastatin [Pravachol] 40 mg PO BEDTIME 06/24/14 [History] Albuterol Sulfate [Albuterol Sulfate HFA] 2 puff INH Q4HR PRN 08/28/14 [History] Omeprazole [Prilosec] 40 mg PO DAILY@199901/20/15 [History] Ferrous Sulfate 325 mg PO DAILY@1200 04/12/15 [History] Venlafaxine [Effexor XR] 150 mg PO DAILY 04/12/15 [History] Docusate Sodium [Colace] 100 mg PO BID 06/27/15 [History] Albuterol [Proventil Neb Soln] 2.5 mg NEB QID PRN 02/25/16 [History] Potassium Chloride [K-Tab ER] 10 meq PO DAILY@0800 02/25/16 [History] Warfarin [Coumadin] 5 mg PO SUTUTHSA@1800 05/11/16 [History] Dapsone 100 mg PO DAILY 06/19/16 [History] Lisinopril [Prinivil] 5 mg PO DAILY 06/19/16 [History] Acetaminophen/HYDROcodone [Chemult 325-5 MG] 1 - 2 tab PO Q6H PRN 07/15/16 [ History] predniSONE [Prednisone] 5 mg PO DAILY@1700 07/17/16 [History] predniSONE [Prednisone] 10 mg PO WITHBREAKFAST 07/17/16 [History] Metoprolol Tartrate 12.5 mg PO BID 11/08/16 [History] Sotalol HCl [Sotalol] 120 mg PO DAILY #30 tablet 11/12/16 [Rx] Clindamycin HCl 600 mg PO DAILY PRN 01/16/17 [History] Ondansetron [Zofran] 4 mg PO Q4H PRN 01/16/17 [History] Warfarin [Coumadin] 2.5 mg PO MOWEFR@1800 01/16/17 [History] Roflumilast [Daliresp] 500 mcg PO DAILY #30 tablet 01/20/17 [Rx] Baclofen 5 mg PO BID@06,18 02/03/17 [History] Budesonide [Pulmicort] 0.5 mg INH BID@0900,1600 02/03/17 [History] Rup Rub Analgesic Cream 1 applic TOP BID PRN 02/03/17 [History] Tiotropium [Spiriva HandiHaler] 18 mcg INH DAILY 02/03/17 [History] Bumetanide 0.5 mg PO BID@08,14 03/15/17 [History] GI Cocktail 30 ml PO DAILY PRN #1 bottle 03/25/17 [Rx] Baclofen 5 - 10 mg PO TID PRN 05/21/17 [History] Menthol [Biofreeze] 1 applic TOP BID PRN 05/21/17 [History] Polyethylene Glycol 3350 [MiraLAX] 17 gm PO DAILY@08 05/21/17 [History] Past Medical History HEENT History: Reports: Hard of Hearing, Impaired Vision Cardiovascular History: Reports: Afib, Heart Failure, Heart Valve Replacement, High Cholesterol, Hypertension, OR, SOB on Exertion, Other (See Below) Other Cardiovascular History: mitral stenosis,aortic stenosis,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,vasculitis Respiratory History: Reports: COPD, Pneumonia, Recurrent, SOB, Other (See Below) Other Respiratory History: pleural effusions, on home oxygen 3L at rest & 4L with activity Gastrointestinal History: Reports: Bowel Obstruction, Diverticulosis, GERD Genitourinary History: Reports: Chronic Renal Insuffiency, Renal Disease, Other (See Below) Other Genitourinary History: acquired cyst of kidney [employer] History: Reports: Other OB/BYN History: 6 daughters, live term births Musculoskeletal History: Reports: Arthritis, Back Pain, Chronic, Osteoporosis, Other (See Below) Other Musculoskeletal History: compression fracture of thoracolumbar vertebra Neurological History: Reports: Migraines Other Neuro History: new onset confusion starting 06/18/2016 Psychiatric History: Reports: Depression Endocrine/Metabolic History: Reports: Diabetes, Type II, Hypothyroidism, Osteoporosis Hematologic History: Reports: Anemia, Blood Transfusion(s) Immunologic History: Reports: Other (See Below) Other Immunologic History: chronic steroid use Oncologic (Cancer) History: Reports: Breast, Colon Dermatologic History: Reports: Venous Stasis Dermatitis, Other (See Below) Other Dermatologic History: discolored skin from chronic steroid use - Infectious Disease History Infectious Disease History: Reports: Chicken Pox, Measles, Rheumatic Fever - Past Surgical History Head Surgeries/Procedures: Reports: None HEENT Surgical History: Reports: Cataract Surgery Cardiovascular Surgical History: Reports: Valve Replacement Respiratory Surgical History: Reports: Thoracentesis GI Surgical History: Reports: Colostomy Neurological Surgical History: Reports: Laminectomy Musculoskeletal Surgical History: Reports: Other (See Below) Other Musculoskeletal Surgeries/Procedures:: spinal injections, laminectomy Oncologic Surgical History: Reports: Mastectomy Dermatological Surgical History: Reports: None Social & Family History - Family History Family Medical History: Noncontributory HEENT: Reports: None Cardiac: Reports: None Respiratory: Reports: None GI: Reports: None : Reports: None OBGYN: Reports: None Musculoskeletal: Reports: None Neurological: Reports: None Psychiatric: Reports: None Endocrine/Metabolic: Reports: None Hematologic: Reports: None Immunologic: Reports: None Dermatologic: Reports: None Oncologic: Reports: Other (See Below) Other Oncologic Family History: parents had ca - Tobacco Use Smoking Status *Q: Former Smoker Years of Tobacco use: 40 Packs/Tins Daily: 0.5 Used Tobacco, but Quit: Yes Month Tobacco Last Used: dec Second Hand Smoke Exposure: No - Caffeine Use Caffeine Use: Reports: Coffee, Soda - Alcohol Use Days Per Week of Alcohol Use: 0 - Recreational Drug Use Recreational Drug Use: No Recreational Drug Last Use: Coffee 3 cups of coffee per day, very occasional soda - Living Situation & Occupation Living situation: Reports: Occupation: Retired ED ROS GENERAL - Review of Systems Review Of Systems: ROS reveals no pertinent complaints other than HPI. Constitutional: Reports: No Symptoms HEENT: Reports: No Symptoms Respiratory: Reports: No Symptoms Cardiovascular: Reports: No Symptoms Endocrine: Reports: No Symptoms GI/Abdominal: Reports: Abdominal Pain : Reports: No Symptoms Musculoskeletal: Reports: No Symptoms Skin: Reports: No Symptoms Neurological: Reports: No Symptoms Psychiatric: Reports: No Symptoms Hematologic/Lymphatic: Reports: No Symptoms Immunologic: Reports: No Symptoms ED EXAM, GI/ABD - Physical Exam Exam: See Below Exam Limited By: No Limitations General Appearance: Alert, No Apparent Distress, Thin Eyes: Bilateral: Normal Appearance Nose: Normal Inspection, Normal Mucosa, No Blood Throat/Mouth: Normal Inspection, Normal Oropharynx, No Airway Compromise Head: Atraumatic, Normocephalic Neck: Normal Inspection Respiratory/Chest: No Respiratory Distress, Lungs Clear, Normal Breath Sounds Cardiovascular: Regular Rate, Rhythm, Systolic Murmur GI/Abdominal Exam: Normal Bowel Sounds, Tender (upper), Other (colostomy site intact and no erythema) Back Exam: Normal Inspection. No: CVA Tenderness (L), CVA Tenderness (R) Extremities: Normal Inspection, No Pedal Edema Neurological: Alert, Oriented, Normal Cognition Psychiatric: Normal Affect, Normal Mood Skin Exam: Warm, Dry, Intact, Normal Color, No Rash Course - Vital Signs Last Recorded V/S: Last Vital Signs Temp 97.4 F 05/21/17 08:08 Pulse 64 05/21/17 08:08 Resp 16 05/21/17 08:08 BP 148/56 H 05/21/17 08:08 Pulse Ox 94 L 05/21/17 08:08 - Orders/Labs/Meds Orders: Active Orders 24 hr Category Date Time Status Abdomen Pelvis w Cont [CT] Stat Exams 05/21/17 08:38 Ordered UA W/MICROSCOPIC [URIN] Stat Lab 05/21/17 08:38 Uncollected Labs: Laboratory Tests 05/21/17 05/21/17 05/21/17 Range/Units 08:45 08:45 08:45 WBC 17.1 H (5.0-10.0) 10^3/uL RBC 3.41 L (3.80-5.50) 10^6/uL Hgb 12.1 (12.0-16.0) g/dL Hct 36.3 L (37.0-47.0) % MCV 106.7 H (82.0-92.0) fL MCH 35.6 H (27.0-31.0) pg MCHC 33.4 (32.0-36.0) g/dL RDW 13.7 (11.5-14.5) % Plt Count 129 L (150-300) 10^3/uL MPV 10.1 (7.4-10.4) fL Neut % (Auto) 79.4 H (50.0-70.0) % Lymph % (Auto) 14.2 L (20.0-40.0) % Rains % (Auto) 5.9 (2.0-8.0) % Eos % (Auto) 0.3 L (1.0-3.0) % Baso % (Auto) 0.2 (0.0-1.0) % Neut # (Auto) 13.6 H (2.5-7.0) 10^3/uL Lymph # (Auto) 2.4 (1.0-4.0) 10^3/uL Rains # (Auto) 1.0 H (0.1-0.8) 10^3/uL Eos # (Auto) 0.1 (0.1-0.3) 10^3/uL Baso # (Auto) 0.0 (0.0-0.1) 10^3/uL PT 26.8 H (8.9-11.4) SEC INR 2.7 H (0.9-1.1) Sodium 142 (136-145) mmol/L Potassium 3.9 (3.3-5.3) mmol/L Chloride 106 (98-115) mmol/L Carbon Dioxide 29.6 (21.0-32.0) mmol/L BUN 39 H (6-25) mg/dL Creatinine 1.07 (0.51-1.17) mg/dL Est Cr Clr Drug Dosing 30.12 mL/min Estimated GFR (MDRD) 49 mL/min Glucose 182 H (70-110) mg/dL Calcium 10.2 (8.7-10.3) mg/dL Total Bilirubin 0.7 (0.2-1.0) mg/dL AST 17 (15-37) U/L ALT 22 (12-78) U/L Alkaline Phosphatase 63 (46-116) IU/L Total Protein 6.0 L (6.4-8.2) g/dL Albumin 3.53 (3.00-4.80) g/dL Lipase 211 (73-393) U/L - Radiology Interpretation Free Text/Narrative:: CT ABD PELVIS SHOWS MID TO DISTAL SMALL BOWEL OBSTRUCTION, AND SMALL VOLUME OF FREE FLUID CT Results Date: 05/21/17 - Re-Assessments/Exams Free Text/Narrative Re-Assessment/Exam: 05/21/17 10:53 PATIENT AFEBRILE, NONTOXIC APPEARING, VITAL SIGNS STABLE. NO ABDOMINAL PAIN OR NAUSEA AT THIS TIME. FAMILY AT BEDSIDE. PATIENT DISCUSSED WITH DR. BERNARD, WHO IS FAMILIAR WITH PATIENT FROM PREVIOUS ADMISSION. PATIENT WILL BE ADMITTED INPATIENT AND FOLLOWED BY DR. GAUTHIER. Departure - Departure Time of Disposition: 10:57 Disposition: Admitted As Inpatient 68 Condition: Fair Clinical Impression: Small bowel obstruction UTI (urinary tract infection) Qualifiers: Urinary tract infection type: acute cystitis Hematuria presence: without hematuria Qualified Code(s): N30.00 - Acute cystitis without hematuria - Discharge Information Referrals: Karen Terry MD [Primary Care Provider] - - My Orders Last 24 Hours: My Active Orders 05/21/17 08:38 Abdomen Pelvis w Cont [CT] Stat UA W/MICROSCOPIC [URIN] Stat - Assessment/Plan Last 24 Hours: My Active Orders 05/21/17 08:38 Abdomen Pelvis w Cont [CT] Stat UA W/MICROSCOPIC [URIN] Stat Assessment:: URINARY TRACT INFECTION, SMALL BOWEL OBSTRUCTION Plan: INPATIENT ADMISSION
[2017-05-21] MEDS ORDERED: Sodium Chloride 0.9% 50 ML SDV FLUSH SCH (10:00)
[2017-05-21] MEDS ORDERED: Ondansetron 4 MG/2 ML SDV IVPUSH ONE (10:13)
[2017-05-21] MEDS ORDERED: cefTRIAXone 1 GM Vial IVPUSH ONE (10:46)
[2017-05-21] MEDS ORDERED: Baclofen 10 MG Tab PO PRN (11:27)
[2017-05-21] MEDS ORDERED: Acetaminophen/HYDROcodone 325-5 MG Tab PO PRN (11:27)
[2017-05-21] MEDS ORDERED: Polyethylene Glycol 3350 Powder 17 GM Packet PO PRN (11:27)
[2017-05-21] MEDS ORDERED: Albuterol 0.083% 2.5 MG/3 ML Neb Soln NEB PRN (11:27)
[2017-05-21] MEDS: Iopamidol 612 MG/ML 75 ML Bottle IV ONE (11:37)
[2017-05-21] MEDS ORDERED: Docusate Sodium 100 MG Cap PO PRN (11:39)
[2017-05-21] MEDS ORDERED: Ondansetron 4 MG/2 ML SDV IVPUSH PRN (11:44)
[2017-05-21] MEDS ORDERED: Metoclopramide 10 MG/2 ML SDV IVPUSH PRN (11:45)
[2017-05-21] MEDS ORDERED: Ferrous Sulfate 325 MG Tab PO SCH (12:00)
--- NOTE | 2017-05-21 12:15 | PCM.HP ---
H&P History of Present Illness - General Date of Service: 05/21/17 Admit Problem/Dx: Small bowel obstruction Source of Information: Patient, Old Records, Provider (Anurag Aldana, ED provider) History Limitations: Reports: No Limitations - History of Present Illness Initial Comments - Free Text/Narative: Ms. Perla was in her usual state of health yesterday until around 1900 when she developed crampy upper abdominal pain. She had eaten dinner, which included some pizza, and was the last time she ate any food. Through the night, the pain worsened to the point that this morning she "couldn't take it anymore" and requested to be transferred to the [facility] ED for evaluation. In the ED, evaluation was notable for CT abdomen/pelvis showing a mid to distal small bowel obstruction and small volume of free fluid as well as laboratory work showing leukocytosis, neutrophilia, and WBC and nitrites on UA. She received ceftriaxone and Reglan. Due to her clinical status and multiple medical comorbidities, I was called for admission. Upon my evaluation of her after arrival on the floor, she currently complains of waves of upper abdominal pain, crampy in nature, and waxing and waning in severity. She states that her nausea is currently well controlled, but that she was quite nauseated overnight, but without emesis. She changed her ostomy bag 3 times in the past 12 hours without a change in her typical stool consistency, and it was not noted to contain any blood. She denies any dysuria, urinary frequency, or gross hematuria. Has not changed anything about her diet or activity in the past few days. No alleviating or aggravating factors of her symptoms. Nursing states that upon arrival on the floor, she did not complain of any abdominal pain and had active bowel sounds in all quadrants without notable abdominal examination findings. Left Upper Abdomen Pain Score (Numeric/FACES): 8 - Related Data Allergies/Adverse Reactions: Allergies Allergy/AdvReac Type Severity Reaction Status Date / Time penicillamine Allergy Severe Anaphylactic Verified 05/21/17 08:13 Shock Penicillins Allergy Severe Anaphylactic Verified 05/21/17 08:13 Shock Cephalosporins Allergy Unknown Cannot Verified 05/21/17 08:13 Remember aspirin Allergy Other Verified 05/21/17 08:13 Carbapenems Allergy Cannot Verified 05/21/17 08:13 Remember divalproex sodium Allergy Delusions Verified 05/21/17 08:13 [From [facility] Home Medications: Home Meds Cholecalciferol (Vitamin D3) [Vitamin D3] 1,000 unit PO DAILY@0800 09/27/13 [ History] Levothyroxine [Synthroid] 88 mcg PO DAILY@0600 09/27/13 [History] Lutein/Minerals/Vit A,C & E [I-Silvina] 1 cap PO DAILY@0800 06/24/14 [History] Pravastatin [Pravachol] 40 mg PO BEDTIME 06/24/14 [History] Albuterol Sulfate [Albuterol Sulfate HFA] 2 puff INH Q4HR PRN 08/28/14 [History] Omeprazole [Prilosec] 40 mg PO DAILY@199901/20/15 [History] Ferrous Sulfate 325 mg PO DAILY@1200 04/12/15 [History] Venlafaxine [Effexor XR] 150 mg PO DAILY 04/12/15 [History] Docusate Sodium [Colace] 100 mg PO BID 06/27/15 [History] Albuterol [Proventil Neb Soln] 2.5 mg NEB QID PRN 02/25/16 [History] Potassium Chloride [K-Tab ER] 10 meq PO DAILY@0800 02/25/16 [History] Warfarin [Coumadin] 5 mg PO SUTUTHSA@1800 05/11/16 [History] Dapsone 100 mg PO DAILY 06/19/16 [History] Lisinopril [Prinivil] 5 mg PO DAILY 06/19/16 [History] Acetaminophen/HYDROcodone [Neligh 325-5 MG] 1 - 2 tab PO Q6H PRN 07/15/16 [ History] predniSONE [Prednisone] 5 mg PO DAILY@1700 07/17/16 [History] predniSONE [Prednisone] 10 mg PO WITHBREAKFAST 07/17/16 [History] Metoprolol Tartrate 12.5 mg PO BID 11/08/16 [History] Sotalol HCl [Sotalol] 120 mg PO DAILY #30 tablet 11/12/16 [Rx] Clindamycin HCl 600 mg PO DAILY PRN 01/16/17 [History] Ondansetron [Zofran] 4 mg PO Q4H PRN 01/16/17 [History] Warfarin [Coumadin] 2.5 mg PO MOWEFR@1800 01/16/17 [History] Roflumilast [Daliresp] 500 mcg PO DAILY #30 tablet 01/20/17 [Rx] Baclofen 5 mg PO BID@06,18 02/03/17 [History] Budesonide [Pulmicort] 0.5 mg INH BID@0900,1600 02/03/17 [History] Rup Rub Analgesic Cream 1 applic TOP BID PRN 02/03/17 [History] Tiotropium [Spiriva HandiHaler] 18 mcg INH DAILY 02/03/17 [History] Bumetanide 0.5 mg PO BID@08,14 03/15/17 [History] GI Cocktail 30 ml PO DAILY PRN #1 bottle 03/25/17 [Rx] Baclofen 5 - 10 mg PO TID PRN 05/21/17 [History] Menthol [Biofreeze] 1 applic TOP BID PRN 05/21/17 [History] Polyethylene Glycol 3350 [MiraLAX] 17 gm PO DAILY@08 05/21/17 [History] Past Medical History HEENT History: Reports: Hard of Hearing, Impaired Vision Cardiovascular History: Reports: Afib, Heart Failure, Heart Valve Replacement, High Cholesterol, Hypertension, OR, SOB on Exertion, Other (See Below) Other Cardiovascular History: mitral stenosis,aortic stenosis,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,vasculitis Respiratory History: Reports: COPD, Pneumonia, Recurrent, SOB, Other (See Below) Other Respiratory History: pleural effusions, on home oxygen 3L at rest & 4L with activity Gastrointestinal History: Reports: Bowel Obstruction, Diverticulosis, GERD Genitourinary History: Reports: Chronic Renal Insuffiency, Renal Disease, Other (See Below) Other Genitourinary History: acquired cyst of kidney [employer] History: Reports: Other OB/BYN History: 6 daughters, live term births Musculoskeletal History: Reports: Arthritis, Back Pain, Chronic, Osteoporosis, Other (See Below) Other Musculoskeletal History: compression fracture of thoracolumbar vertebra Neurological History: Reports: Migraines Other Neuro History: new onset confusion starting 06/18/2016 Psychiatric History: Reports: Depression Endocrine/Metabolic History: Reports: Diabetes, Type II, Hypothyroidism, Osteoporosis Hematologic History: Reports: Anemia, Blood Transfusion(s) Immunologic History: Reports: Other (See Below) Other Immunologic History: chronic steroid use Oncologic (Cancer) History: Reports: Breast, Colon Dermatologic History: Reports: Venous Stasis Dermatitis, Other (See Below) Other Dermatologic History: discolored skin from chronic steroid use - Infectious Disease History Infectious Disease History: Reports: Chicken Pox, Measles, Rheumatic Fever - Past Surgical History Head Surgeries/Procedures: Reports: None HEENT Surgical History: Reports: Cataract Surgery Cardiovascular Surgical History: Reports: Valve Replacement Respiratory Surgical History: Reports: Thoracentesis GI Surgical History: Reports: Colostomy Neurological Surgical History: Reports: Laminectomy Musculoskeletal Surgical History: Reports: Other (See Below) Other Musculoskeletal Surgeries/Procedures:: spinal injections, laminectomy Oncologic Surgical History: Reports: Mastectomy Dermatological Surgical History: Reports: None Social & Family History - Family History Family Medical History: Noncontributory HEENT: Reports: None Cardiac: Reports: None Respiratory: Reports: None GI: Reports: None : Reports: None OBGYN: Reports: None Musculoskeletal: Reports: None Neurological: Reports: None Psychiatric: Reports: None Endocrine/Metabolic: Reports: None Hematologic: Reports: None Immunologic: Reports: None Dermatologic: Reports: None Oncologic: Reports: Other (See Below) Other Oncologic Family History: parents had ca - Tobacco Use Smoking Status *Q: Former Smoker Years of Tobacco use: 40 Packs/Tins Daily: 0.5 Used Tobacco, but Quit: Yes Month Tobacco Last Used: dec Second Hand Smoke Exposure: No - Caffeine Use Caffeine Use: Reports: Coffee, Soda - Alcohol Use Days Per Week of Alcohol Use: 0 - Recreational Drug Use Recreational Drug Use: No Recreational Drug Last Use: Coffee 3 cups of coffee per day, very occasional soda - Living Situation & Occupation Living situation: Reports: Occupation: Retired H&P Review of Systems - Review of Systems: Review Of Systems: See Below General: Reports: Weakness, Fatigue, Decreased Appetite. Denies: Fever, Chills , Weight Loss, Weight Gain HEENT: Denies: Dysphasia, Headaches, Sinus Congestion, Sore Throat, Visual Changes Pulmonary: Denies: Shortness of Breath, Wheezing, Cough, Sputum, Hemoptysis Cardiovascular: Denies: Chest Pain, Palpitations, Orthopnea, Edema Gastrointestinal: Reports: Abdominal Pain, Anorexia, Decreased Appetite, Nausea. Denies: Black Stool, Bloody Stool, Constipation, Diarrhea, Difficulty Swallowing, Distension, Vomiting Genitourinary: Denies: Dysuria, Frequency, Pain, Hematuria Musculoskeletal: Reports: Back Pain (chronic). Denies: Joint Pain, Joint Swelling Skin: Reports: Bruising. Denies: Pruritis, Rash Psychiatric: Denies: Confusion, Depression, Anxiety, Agitation Neurological: Denies: Dizziness, Headache, Numbness, Syncope Hematologic/Lymphatic: Reports: Easy Bleeding, Easy Bruising Exam - Exam Exam: See Below - Vital Signs Vital Signs: Last Vital Signs Temp 36.3 C 05/21/17 08:08 Pulse 64 05/21/17 08:08 Resp 16 05/21/17 08:08 BP 148/56 H 05/21/17 08:08 Pulse Ox 94 L 05/21/17 08:08 Weight: 54.431 kg - Exam Physical Exam Comments:: GENERAL: Mildly uncomfortable appearing elderly white female lying in hospital bed. HEENT: Normocephalic, atraumatic. Conjunctiva clear. Nares patent without discharge. Hearing grossly intact. Mucus membranes dry, posterior pharynx unremarkable. NECK: Supple, no masses. CV: Regular rate and rhythm, 2/6 systolic murmur at base, no rub or gallops. 2 + radial pulses. PULMONARY: Normal effort, clear to auscultation bilaterally with diminished air movement in the bases, no wheezes, rales, or rhonchi. ABDOMEN: Quiet, but active bowel sounds in all 4 quadrants, soft, nondistended, mild pain to palpation in the upper abdomen without rigidity, guarding, or rebound. Colostomy bag with small amount of stool output without obvious blood. EXTREMITIES: No edema, cyanosis, or clubbing. MUSCULOSKELETAL: Moves all extremities well. NEUROLOGICAL: No obvious deficits. DERMATOLOGIC: No rashes or suspicious lesions in exposed areas. Venous stasis changes of bilateral lower extremities. Diffuse bruising of upper extremities. PSYCHIATRIC: Alert, oriented x4, interactive, mildly anxious affect. - Patient Data Result Diagrams: 05/21/17 08:45 05/21/17 08:45 *Q Meaningful Use (ADM) - VTE *Q VTE Criteria *Q: - Stroke *Q Stroke Criteria *Q: - AMI *Q AMI Criteria *Q: Problem List Initiated/Reviewed/Updated: Yes Orders Last 24hrs: Active Orders 24 hr Category Date Time Status Height and Weight [RC] DAILY Care 05/21/17 11:41 Ordered Intake and Output [RC] QSHIFT Care 05/21/17 11:42 Ordered May Shower [RC] ASDIRECTED Care 05/21/17 11:41 Ordered Oxygen Therapy [RC] PRN Care 05/21/17 11:41 Ordered Up With Assistance [RC] ASDIRECTED Care 05/21/17 11:41 Ordered VTE/DVT Education [RC] PER UNIT ROUTINE Care 05/21/17 11:41 Ordered Advance Diet Instructions [DIET] Diet 05/21/17 Lunch Ordered CBC WITH AUTO DIFF [HEME] AM Lab 05/22/17 05:11 Ordered COMPREHENSIVE METABOLIC PN,CMP [CHEM] AM Lab 05/22/17 05:11 Ordered CULTURE URINE [RM] Stat Lab 05/21/17 10:57 Ordered Acetaminophen/HYDROcodone [Neligh 325-5 MG] Med 05/21/17 11:27 Ordered 1 - 2 tab PO Q6H PRN Albuterol [Proventil Neb Soln] Med 05/21/17 11:27 Ordered 2.5 mg NEB QID PRN Baclofen [Lioresal] Med 05/21/17 11:27 Ordered 5 - 10 mg PO TID PRN Baclofen [Lioresal] Med 05/21/17 18:00 Ordered 5 mg PO BID@06,18 Budesonide [Pulmicort] Med 05/21/17 16:00 Ordered 0.5 mg INH BID@0900,1600 Bumetanide [Bumetanide] Med 05/21/17 14:00 Ordered 0.5 mg PO BID@08,14 Cholecalciferol (Vitamin D3) [Vitamin D3] Med 05/22/17 08:00 Ordered 1,000 units PO DAILY@0800 Dapsone Med 05/21/17 11:30 Ordered 100 mg PO DAILY Docusate Sodium [Colace] Med 05/21/17 11:39 Ordered 100 mg PO BID PRN Ferrous Sulfate Med 05/21/17 12:00 Ordered 325 mg PO DAILY@1200 Levothyroxine [Synthroid] Med 05/22/17 06:00 Ordered 88 mcg PO DAILY@0600 Lisinopril [Prinivil] Med 05/21/17 11:30 Ordered 5 mg PO DAILY Lutein/Minerals/Vit A,C & E [Ocuvite] Med 05/22/17 08:00 Ordered 1 cap PO DAILY@0800 Metoclopramide [Reglan] Med 05/21/17 11:45 Ordered 5 mg IVPUSH Q6H PRN Metoprolol Tartrate [Lopressor] Med 05/21/17 11:30 Ordered 12.5 mg PO BID Omeprazole Med 05/21/17 20:00 Ordered 40 mg PO DAILY@2000 Ondansetron [Zofran] Med 05/21/17 11:44 Ordered 4 mg IVPUSH Q6H PRN Polyethylene Glycol 3350 [MiraLAX] Med 05/21/17 11:27 Ordered 17 gm PO DAILY@08 PRN Potassium Chloride [Klor-Con 10] Med 05/22/17 08:00 Ordered 10 meq PO DAILY@0800 Pravastatin Med 05/21/17 21:00 Ordered 40 mg PO BEDTIME Roflumilast Med 05/21/17 11:30 Ordered 500 mcg PO DAILY Sotalol HCl [Sotalol] Med 05/21/17 11:30 Ordered 120 mg PO DAILY Tiotropium [Spiriva HandiHaler] Med 05/21/17 11:30 Ordered 18 mcg INH DAILY Venlafaxine [Effexor XR] Med 05/21/17 11:30 Ordered 150 mg PO DAILY Warfarin [Coumadin] Med 05/22/17 18:00 Ordered 2.5 mg PO MOWEFR@1800 Warfarin [Coumadin] Med 05/21/17 18:00 Ordered 5 mg PO SUTUTHSA@1800 predniSONE Med 05/22/17 08:00 Ordered 10 mg PO WITHBREAKFAST predniSONE Med 05/21/17 17:00 Ordered 5 mg PO DAILY@1700 Medication Orders Hydrocodone Bitart/Acetaminophen (Neligh 325-5 Mg) 1 - 2 tab PO Q6H PRN PRN Reason: Pain Albuterol (Proventil Neb Soln) 2.5 mg NEB QID PRN PRN Reason: Shortness of Breath Baclofen (Lioresal) 5 mg PO BID@06,18 MARY ALICE Baclofen (Lioresal) 5 - 10 mg PO TID PRN PRN Reason: Muscle Spasm Budesonide (Pulmicort) 0.5 mg INH BID@0900,1600 MARY ALICE Cholecalciferol (Vitamin D3) 1,000 units PO DAILY@0800 MARY ALICE Docusate Sodium (Colace) 100 mg PO BID PRN PRN Reason: Constipation Ferrous Sulfate (Ferrous Sulfate) 325 mg PO DAILY@1200 [facility] Levothyroxine Sodium (Synthroid) 88 mcg PO DAILY@0600 [facility] Lisinopril (Prinivil) 5 mg PO DAILY [facility] Metoclopramide HCl (Reglan) 5 mg IVPUSH Q6H PRN PRN Reason: Nausea Metoprolol Tartrate (Lopressor) 12.5 mg PO BID [facility] Multivitamins/Minerals (Ocuvite) each PO DAILY@0800 [facility] Non-Formulary Medication (Bumetanide [Bumetanide]) 0.5 mg PO BID@08,14 [facility] Non-Formulary Medication (Dapsone) 100 mg PO DAILY [facility] Non-Formulary Medication (Pravastatin) 40 mg PO BEDTIME [facility] Non-Formulary Medication (Roflumilast) 500 mcg PO DAILY [facility] Non-Formulary Medication (Sotalol Hcl [Sotalol]) 120 mg PO DAILY [facility] Omeprazole (Omeprazole) 40 mg PO DAILY@2000 [facility] Ondansetron HCl (Zofran) 4 mg IVPUSH Q6H PRN PRN Reason: Nausea/Vomiting Polyethylene Glycol (Miralax) 17 gm PO DAILY@08 PRN PRN Reason: Constipation Potassium Chloride (Klor-Con 10) 10 meq PO DAILY@0800 [facility] Prednisone (Prednisone) 5 mg PO DAILY@1700 [facility] Prednisone (Prednisone) 10 mg PO WITHBREAKFAST [facility] Sodium Chloride (Normal Saline) 50 ml FLUSH ASDIRECTED [facility] Tiotropium [place] (Spiriva Handihaler) 18 mcg INH DAILY [facility] Venlafaxine HCl (Effexor Xr) 150 mg PO DAILY [facility] Warfarin Sodium (Coumadin) 2.5 mg PO MOWEFR@1800 [facility] Warfarin Sodium (Coumadin) 5 mg PO SUTUTHSA@1800 [facility] Assessment/Plan Comment:: Mrs. 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 Work-up notable for CT abdomen/pelvis showing a mid to distal small bowel obstruction and small volume of free fluid as well as laboratory work showing leukocytosis with neutrophilia, thrombocytosis, and UA with WBC and nitrites. Due to her multiple chronic medical conditions, multiple recent hospitalizations , and acute abdominal pain likely secondary to SBO, she will be admitted for further work-up and management. # Small bowel obstruction # Possible UTI # Leukocytosis with neutrophilia # Thrombocytopenia # Mild dehydration Acute worsening of chronic nausea in the setting of acute abdominal pain with CT abdomen/pelvis showing a mid to distal small bowel obstruction and small volume of free fluid, consistent with SBO. She has a history of multiple abdominal surgeries, including colostomy placeemnt following sigmoid colectomy for perforated diverticulum of the large intestine in 2015. She states that she has been continuing to have stool output through her ostomy and has not vomited , and in the ED she had periods of [id number] abdominal pain. Also has leukocytosis, neutrophilia, UA with WBC and +nitrites. Limited urinary symptoms , but UA with possible pathogen questioning possible UTI vs. asymptomatic bacteruria. She received ceftriaxone in the ED will await urine culture results and treat as indicated. Upon my evaluation, she denies nausea and has bowel sounds present, but is mildly fluid depleted on exam. Given this, will proceed conservatively with the following: - Limited po intake; sips of clear liquids allowed if not associated with worsening nausea or abdominal pain - Consider NG decompression if develops worsening nausea or distension - Cautious IVF rehydration with NS @ 75cc/hr given her history of HFpEF with history of fluid overload in the past - Strict I/O - Zofran and Reglan as needed for nausea - Morphine as needed for severe pain - CBC and CMP in AM Chronic medical conditions related to current hospitalization: # COPD: Stable. Continue baseline oxygen, Pulmicort, Daliresp, Spiriva, and prn albuterol. # CAD/HFpEF/HTN/HLD: Currently asymptomatic with slightly fluid depleted status. Hold bumetanide/KCl tonight. Continue metoprolol and lisinopril. Hold statin in setting of SBO. # Hx TAVR: Therapeutic INR. Continue warfarin anticoagulation. # Atrial fibrillation: Maintained in sinus rhythm on sotalol, which will be continued. Therapeutic INR. Continue warfarin anticoagulation. # GERD: Stable. Hold omeprazole in setting of SBO. # Suyapa's granulomatosis: Stable. Continue dapsone and prednisone. # Anemia: Stable without evidence of bleeding. Hold iron in setting of SBO. # Hypothyroidism: Stable with TSH normal 6mos ago. Continue levothyroxine. # Chronic back pain: Stable. Continue baclofen prn. # Depression: Stable. Continue Effexor. Hospitalization details: # FEN: NS @ 75cc/hr. Electrolytes normal; recheck tomorrow. Nutrition with sips of clear liquids as tolerated. # PPX: Therapeutic INR on warfarin anticoagulation. # Code status: DNR. # Emergency contact: Daughters. # Disposition: Admit to med/surg. Anticipate at least 2 night stay for management of above issues. Anticipate discharge back to [facility] once improved.
[2017-05-21] MEDS: Venlafaxine 150 MG Cap.ER PO SCH (13:42)
[2017-05-21] MEDS: Lisinopril 5 MG Tab PO SCH (13:44)
[2017-05-21] MEDS: Metoprolol Tartrate 25 MG Tab PO SCH ×2 (13:44→20:45)
[2017-05-21] MEDS: Tiotropium Inhaler 18 MCG Inhalation Powder Cap Kit of 5 INH SCH (13:45)
[2017-05-21] MEDS: Sotalol 80 MG Tab PO SCH (13:47)
[2017-05-21] MEDS: Roflumilast 500 MCG Tab PO SCH (13:48)
[2017-05-21] MEDS ORDERED: Morphine 2 MG/ML Syringe IVPUSH PRN (13:52)
[2017-05-21] MEDS ORDERED: Bumetanide 1 MG Tab PO SCH (14:00)
[2017-05-21] MEDS: Sodium Chloride 0.9% 1,000 ML IV SCH (14:39)
[2017-05-21] MEDS: Budesonide 0.5 MG/2 ML Neb Susp INH SCH (16:18)
[2017-05-21] MEDS ORDERED: Warfarin 5 MG Tab PO SCH (18:00)
[2017-05-21] MEDS ORDERED: Baclofen 10 MG Tab PO SCH (18:00)
[2017-05-21] MEDS: predniSONE 5 MG Tab PO SCH (18:02)
[2017-05-21] MEDS ORDERED: Omeprazole 20 MG Cap.CR PO SCH (20:00)
[2017-05-21] MEDS ORDERED: Pravastatin 20 MG Tab PO SCH (21:00)
[2017-05-22] MEDS: Sodium Chloride 0.9% 1,000 ML IV SCH (03:38)
[2017-05-22] MEDS: Levothyroxine 88 MCG Tab PO SCH (05:56)
[2017-05-22] MEDS: Iopamidol 612 MG/ML 75 ML Bottle IV ONE (07:27)
[2017-05-22] MEDS ORDERED: Potassium Chloride 10 MEQ Tab.ER PO SCH (08:00)
[2017-05-22] MEDS ORDERED: Cholecalciferol (Vitamin D3) 1,000 Unit Tab PO SCH (08:00)
[2017-05-22] MEDS ORDERED: Lutein/Minerals/Vitamins A, C & E Tab PO SCH (08:00)
[2017-05-22] MEDS: predniSONE 10 MG Tab PO SCH (08:46)
[2017-05-22] MEDS: Roflumilast 500 MCG Tab PO SCH (08:47)
[2017-05-22] MEDS: Sotalol 80 MG Tab PO SCH (08:47)
[2017-05-22] MEDS: Metoprolol Tartrate 25 MG Tab PO SCH ×2 (08:48→21:19)
[2017-05-22] MEDS: Lisinopril 5 MG Tab PO SCH (08:48)
[2017-05-22] MEDS: Venlafaxine 150 MG Cap.ER PO SCH (08:48)
[2017-05-22] MEDS: Tiotropium Inhaler 18 MCG Inhalation Powder Cap Kit of 5 INH SCH (08:49)
[2017-05-22] MEDS: Budesonide 0.5 MG/2 ML Neb Susp INH SCH ×2 (08:49→16:08)
[2017-05-22] MEDS ORDERED: Bumetanide 1 MG Tab PO SCH (10:30)
[2017-05-22] MEDS ORDERED: Acetaminophen/HYDROcodone 325-5 MG Tab PO PRN (10:34)
--- NOTE | 2017-05-22 10:42 | PCM.PN ---
- General Info Date of Service: 05/22/17 Admission Dx/Problem (Free Text): Small bowel obstruction Subjective Update: Ms. Perla reports feeling quite well this morning. Daughter and friend at bedside and concur that she seems to be doing much better. She denies any current abdominal pain or nausea and hasn't required any pain or nausea medications since admission. She had quite a bit of air and stool output through her colostomy overnight and this morning. Tolerating clear liquids without difficulty and reports being hungry wanting more to eat. She denies any shortness of breath or edema this morning. Also denies any fever, chills, dysuria, hematuria, urinary frequency, or other concerns. Nursing reports that she has been doing well and have no concerns. - Patient Data Vitals - Most Recent: Last Vital Signs Temp 36.4 C 05/22/17 06:08 Pulse 70 05/22/17 09:26 Resp 18 05/22/17 06:08 BP 125/53 L 05/22/17 08:48 Pulse Ox 96 05/22/17 09:26 Weight - Most Recent: 54.431 kg I&O - Last 24 Hours: Intake & Output 05/21/17 05/22/17 05/22/17 22:59 06:59 14:59 Intake Total 888 634 Output Total 300 Balance 588 634 Lab Results Last 24 Hours: Laboratory Results - last 24 hr 05/22/17 05/22/17 Range/Units 07:20 07:20 WBC 10.0 (5.0-10.0) 10^3/uL RBC 2.92 L (3.80-5.50) 10^6/uL Hgb 10.0 L (12.0-16.0) g/dL Hct 30.9 L (37.0-47.0) % MCV 105.8 H (82.0-92.0) fL MCH 34.1 H (27.0-31.0) pg MCHC 32.3 (32.0-36.0) g/dL RDW 13.6 (11.5-14.5) % Plt Count 113 L (150-300) 10^3/uL MPV 10.1 (7.4-10.4) fL Neut % (Auto) 70.5 H (50.0-70.0) % Lymph % (Auto) 21.7 (20.0-40.0) % [place] % (Auto) 6.6 (2.0-8.0) % Eos % (Auto) 0.9 L (1.0-3.0) % Baso % (Auto) 0.3 (0.0-1.0) % Neut # (Auto) 7.0 (2.5-7.0) 10^3/uL Lymph # (Auto) 2.2 (1.0-4.0) 10^3/uL [place] # (Auto) 0.7 (0.1-0.8) 10^3/uL Eos # (Auto) 0.1 (0.1-0.3) 10^3/uL Baso # (Auto) 0.0 (0.0-0.1) 10^3/uL Sodium 146 H (136-145) mmol/L Potassium 4.1 (3.3-5.3) mmol/L Chloride 112 (98-115) mmol/L Carbon Dioxide 27.4 (21.0-32.0) mmol/L BUN 31 H (6-25) mg/dL Creatinine 1.09 (0.51-1.17) mg/dL Est Cr Clr Drug Dosing 29.57 mL/min Estimated GFR (MDRD) 48 mL/min Glucose 98 (70-110) mg/dL Calcium 8.9 (8.7-10.3) mg/dL Total Bilirubin 0.4 (0.2-1.0) mg/dL AST 16 (15-37) U/L ALT 22 (12-78) U/L Alkaline Phosphatase 52 (46-116) IU/L Total Protein 5.1 L (6.4-8.2) g/dL Albumin 2.76 L (3.00-4.80) g/dL Med Orders - Current: Current Medications Hydrocodone Bitart/Acetaminophen (Dixie 325-5 Mg) 1 tab PO Q6H PRN PRN Reason: Pain Albuterol (Proventil Neb Soln) 2.5 mg NEB QID PRN PRN Reason: Shortness of Breath Baclofen (Lioresal) 5 - 10 mg PO TID PRN PRN Reason: Muscle Spasm Last Admin: 05/21/17 16:18 Dose: 5 mg Budesonide (Pulmicort) 0.5 mg INH BID@0900,1600 [facility] Last Admin: 05/22/17 08:49 Dose: 0.5 mg Bumetanide (Bumex) 0.5 mg PO ASDIRECTED [facility] Dapsone (Dapsone) 100 mg PO DAILY [facility] Last Admin: 05/22/17 08:47 Dose: 100 mg Ferrous Sulfate (Ferrous Sulfate) 325 mg PO WITHBREAKFAST [facility] Levothyroxine Sodium (Synthroid) 88 mcg PO DAILY@0600 [facility] Last Admin: 05/22/17 05:56 Dose: 88 mcg Lisinopril (Prinivil) 5 mg PO DAILY [facility] Last Admin: 05/22/17 08:48 Dose: 5 mg Metoclopramide HCl (Reglan) 5 mg IVPUSH Q6H PRN PRN Reason: Nausea Metoprolol Tartrate (Lopressor) 12.5 mg PO BID [facility] Last Admin: 05/22/17 08:48 Dose: 12.5 mg Omeprazole (Omeprazole) 20 mg PO DAILY [facility] Ondansetron HCl (Zofran) 4 mg IVPUSH Q6H PRN PRN Reason: Nausea/Vomiting Last Admin: 05/21/17 16:18 Dose: 4 mg Potassium Chloride (Klor-Con 10) 10 meq PO DAILY [facility] Pravastatin Sodium (Pravachol) 40 mg PO BEDTIME [facility] Prednisone (Prednisone) 5 mg PO DAILY@1700 [facility] Last Admin: 05/21/17 18:02 Dose: 5 mg Prednisone (Prednisone) 10 mg PO WITHBREAKFAST [facility] Last Admin: 05/22/17 08:46 Dose: 10 mg Roflumilast (Daliresp) 500 mcg PO DAILY [facility] Last Admin: 05/22/17 08:47 Dose: 500 mcg Sodium Chloride (Normal Saline) 50 ml FLUSH ASDIRECTED [facility] Sotalol HCl (Betapace) 120 mg PO DAILY [facility] Last Admin: 05/22/17 08:47 Dose: 120 mg Tiotropium Syl[place] (Spiriva Handihaler) 18 mcg INH DAILY [facility] Last Admin: 05/22/17 08:49 Dose: 18 mcg Venlafaxine HCl (Effexor Xr) 150 mg PO DAILY [facility] Last Admin: 05/22/17 08:48 Dose: 150 mg Warfarin Sodium (Coumadin) 2.5 mg PO MOWEFR@1800 [facility] Warfarin Sodium (Coumadin) 5 mg PO SUTUTHSA@1800 [facility] Last Admin: 05/21/17 18:02 Dose: 5 mg Discontinued Medications Hydrocodone Bitart/Acetaminophen (Dixie 325-5 Mg) 1 - 2 tab PO Q6H PRN PRN Reason: Pain Baclofen (Lioresal) 5 mg PO BID@,18 [facility] Bumetanide (Bumex) 0.5 mg PO BID@0800,1400 [facility] Last Admin: 05/21/17 13:43 Dose: 0.5 mg Ceftriaxone Sodium (Rocephin) 1 gm IVPUSH ONETIME ONE Stop: 05/21/17 10:47 Last Admin: 05/21/17 11:02 Dose: 1 gm Cholecalciferol (Vitamin D3) 1,000 units PO DAILY@0800 [facility] Docusate Sodium (Colace) 100 mg PO BID PRN PRN Reason: Constipation Ferrous Sulfate (Ferrous Sulfate) 325 mg PO DAILY@1200 [facility] Last Admin: 05/21/17 13:42 Dose: 325 mg Sodium Chloride (Normal Saline) 1,000 mls @ 75 mls/hr IV ASDIRECTED [facility] Last Admin: 05/22/17 03:38 Dose: 75 mls/hr Iopamidol (Isovue-300 (61%)) 75 ml IV ONETIME ONE Stop: 05/21/17 09:51 Last Admin: 05/22/17 07:27 Dose: Not Given Morphine Sulfate (Morphine) 2 mg IVPUSH Q4H PRN PRN Reason: Pain (severe 7-10) Multivitamins/Minerals (Ocuvite) 1 each PO DAILY@0800 [facility] Omeprazole (Omeprazole) 40 mg PO DAILY@2000 [facility] Ondansetron HCl (Zofran) 4 mg IVPUSH ONETIME ONE Stop: 05/21/17 10:14 Last Admin: 05/21/17 10:18 Dose: 4 mg Polyethylene Glycol (Miralax) 17 gm PO DAILY@08 PRN PRN Reason: Constipation Potassium Chloride (Klor-Con 10) 10 meq PO DAILY@0800 [facility] Pravastatin Sodium (Pravachol) 40 mg PO BEDTIME [facility] - Exam Physical Findings Comments:: GENERAL: Well appearing elderly white female sitting in bedside chair. HEENT: Normocephalic, atraumatic. Conjunctiva clear. Nares patent without discharge. Hearing grossly intact. Mucus membranes moist. NECK: Supple, no masses. CV: Regular rate and rhythm, 2/6 systolic murmur at base, no rub or gallops. 2 + radial pulses. PULMONARY: Normal effort, clear to auscultation bilaterally with diminished air movement in the bases, no wheezes, rales, or rhonchi. ABDOMEN: Active bowel sounds in all 4 quadrants, soft, nondistended, nontender. Colostomy bag with air and stool output without blood. EXTREMITIES: No edema, cyanosis, or clubbing. MUSCULOSKELETAL: Moves all extremities well. NEUROLOGICAL: No obvious deficits. DERMATOLOGIC: No rashes or suspicious lesions in exposed areas. Venous stasis changes of bilateral lower extremities. Diffuse bruising of upper extremities. PSYCHIATRIC: Alert, oriented x4, interactive, appropriate affect. - Problem List Review Problem List Initiated/Reviewed/Updated: Yes - My Orders Last 24 Hours: My Active Orders 05/21/17 11:27 Albuterol [Proventil Neb Soln] 2.5 mg NEB QID PRN Baclofen [Lioresal] 5 - 10 mg PO TID PRN 05/21/17 11:30 Lisinopril [Prinivil] 5 mg PO DAILY Metoprolol Tartrate [Lopressor] 12.5 mg PO BID Tiotropium [Spiriva HandiHaler] 18 mcg INH DAILY Venlafaxine [Effexor XR] 150 mg PO DAILY 05/21/17 11:41 Height and Weight [RC] DAILY May Shower [RC] ASDIRECTED Oxygen Therapy [RC] PRN Up With Assistance [RC] ASDIRECTED VTE/DVT Education [RC] PER UNIT ROUTINE 05/21/17 11:42 Intake and Output [RC] 1400,2200,0600 05/21/17 11:44 Ondansetron [Zofran] 4 mg IVPUSH Q6H PRN 05/21/17 11:45 Metoclopramide [Reglan] 5 mg IVPUSH Q6H PRN 05/21/17 12:15 Dapsone 100 mg PO DAILY 05/21/17 12:30 Roflumilast [Daliresp] 500 mcg PO DAILY Sotalol [Betapace] 120 mg PO DAILY 05/21/17 16:00 Budesonide [Pulmicort] 0.5 mg INH BID@0900,1600 05/21/17 17:00 predniSONE 5 mg PO DAILY@1700 05/21/17 18:00 Warfarin [Coumadin] 5 mg PO SUTUTHSA@1800 05/22/17 06:00 Levothyroxine [Synthroid] 88 mcg PO DAILY@0600 05/22/17 08:00 predniSONE 10 mg PO WITHBREAKFAST 05/22/17 10:30 Bumetanide [Bumex] 0.5 mg PO ASDIRECTED 05/22/17 10:34 Acetaminophen/HYDROcodone [Dixie 325-5 MG] 1 tab PO Q6H PRN 05/22/17 18:00 Warfarin [Coumadin] 2.5 mg PO MOWEFR@1800 05/22/17 21:00 Pravastatin [Pravachol] 40 mg PO BEDTIME 05/22/17 Lunch Full Liquid Diet [DIET] 05/23/17 05:11 BMP [BASIC METABOLIC PANEL,BMP] [CHEM] AM CBC WITH AUTO DIFF [HEME] AM FOLATE [REF] Routine VITAMIN B12 [REF] Routine 05/23/17 08:00 Ferrous Sulfate 325 mg PO WITHBREAKFAST 05/23/17 09:00 Omeprazole 20 mg PO DAILY Potassium Chloride [Klor-Con 10] 10 meq PO DAILY - Plan Plan:: Mrs. 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 Work-up notable for CT abdomen/pelvis showing a mid to distal small bowel obstruction and small volume of free fluid as well as laboratory work showing leukocytosis with neutrophilia, thrombocytosis, and UA with WBC and nitrites. Due to her multiple chronic medical conditions, multiple recent hospitalizations , and acute abdominal pain likely secondary to SBO, she was admitted for further work-up and management. # Small bowel obstruction: Resolving. # Possible UTI: No growth on urine culture thus far. Will await final results. # Thrombocytopenia: Likely reactive. Stable. # Leukocytosis with neutrophilia, resolved # Mild dehydration, resolved Acute worsening of chronic nausea in the setting of acute abdominal pain with CT abdomen/pelvis showing a mid to distal small bowel obstruction and small volume of free fluid, consistent with SBO. 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 On admission, had leukocytosis, neutrophilia, UA with WBC and +nitrites; limited urinary symptoms , but UA with possible pathogen questioning possible UTI vs. asymptomatic bacteruria; she received ceftriaxone in the ED. She has had excellent clinical improvement since admission with bowel rest and IVF and now fluid neutral status currently, so will slowly advance diet and discontinue IVF. Continue monitoring of I/O and symptomatic management of chronic nausea. Repeat CBC and BMP in AM. Chronic medical conditions related to current hospitalization: # COPD: Stable. Continue baseline oxygen, Pulmicort, Daliresp, Spiriva, and prn albuterol. # CAD/HFpEF/HTN/HLD: Fluid neutral status now. Restart bumetanide/KCl. Continue metoprolol and lisinopril. Restart statin. # Hx TAVR: Therapeutic INR. Continue warfarin anticoagulation. # Atrial fibrillation: Maintained in sinus rhythm on sotalol, which will be continued. Therapeutic INR. Continue warfarin anticoagulation. # GERD: Stable. Restart omeprazole. # Suyapa's granulomatosis: Stable. Continue dapsone and prednisone. # Anemia: Stable without evidence of bleeding. Restart iron. # Hypothyroidism: Stable with TSH normal 6mos ago. Continue levothyroxine. # Chronic back pain: Stable. Continue baclofen prn and resume Dixie prn. # Depression: Stable. Continue Effexor. Hospitalization details: # FEN: D/C IVF, as above. Electrolytes normal; recheck tomorrow. Advance to full liquids, as above. # PPX: Therapeutic INR on warfarin anticoagulation. # Code status: DNR. # Emergency contact: Daughters. # Disposition: Continue on med/surg. Anticipate discharge back to [facility] as early as tomorrow if ongoing clinical improvement.
[2017-05-22] MEDS: predniSONE 5 MG Tab PO SCH (16:41)
[2017-05-22] MEDS ORDERED: Warfarin 2.5 MG Tab PO SCH (18:00)
[2017-05-22] MEDS ORDERED: Simvastatin 20 MG Tab PO SCH (21:00)
[2017-05-22] MEDS ORDERED: Pravastatin 20 MG Tab PO SCH (21:00)
[2017-05-23] MEDS: Levothyroxine 88 MCG Tab PO SCH (06:17)
[2017-05-23 06:59] VITALS: BP 155/64
[2017-05-23] MEDS ORDERED: Omeprazole 20 MG Cap.CR PO SCH (07:30)
[2017-05-23 07:54] LABS: CHLORIDE,CL 110 mmol/L (98-115); SODIUM,NA 144 mmol/L (136-145)
[2017-05-23] MEDS: predniSONE 10 MG Tab PO SCH (07:55)
[2017-05-23] MEDS ORDERED: Bumetanide 1 MG Tab PO SCH (08:00)
[2017-05-23] MEDS: Sotalol 80 MG Tab PO SCH (08:07)
[2017-05-23] MEDS: Roflumilast 500 MCG Tab PO SCH (08:09)
[2017-05-23] MEDS: Venlafaxine 150 MG Cap.ER PO SCH (08:11)
[2017-05-23] MEDS: Metoprolol Tartrate 25 MG Tab PO SCH (08:11)
[2017-05-23] MEDS: Lisinopril 5 MG Tab PO SCH (08:12)
[2017-05-23] MEDS: Tiotropium Inhaler 18 MCG Inhalation Powder Cap Kit of 5 INH SCH (08:17)
[2017-05-23] MEDS ORDERED: Potassium Chloride 10 MEQ Tab.ER PO SCH (09:00)
[2017-05-23] MEDS: Budesonide 0.5 MG/2 ML Neb Susp INH SCH (09:07)
--- NOTE | 2017-05-23 11:03 | PCM.DCSUM1 ---
Discharge Summary - Hospital Course Free Text/Narrative:: Date of admission: 05/21/17 Date of discharge: 05/23/17 Admission diagnoses: 1. Small bowel obstruction 2. Possible UTI 3. Thrombocytopenia 4. Leukocytosis with neutrophilia 5. Mild dehydration Discharge diagnoses: 1. Small bowel obstruction: Resolving. 2. Asymptomatic bacteruria 3. Reactive thrombocytopenia, stable 4. Leukocytosis with neutrophilia, resolved 5. Mild dehydration, resolved Consultations: None Procedures: None Hospital course: Mrs. 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 Work-up notable for CT abdomen/pelvis showing a mid to distal small bowel obstruction and small volume of free fluid as well as laboratory work showing leukocytosis with neutrophilia, thrombocytosis, and UA with WBC and nitrites. Due to her multiple chronic medical conditions, multiple recent hospitalizations , and acute abdominal pain likely secondary to SBO, she was admitted for further work-up and management. She had excellent clinical improvement throughout hospitalization with conservative management, including bowel rest and IVF, and was deemed ready for discharge back to [facility] in [place] following advancement to exclusively oral intake and passage of air and stool. She was restarted on her outpatient medications and had fluid neutral status at time of discharge. She will follow-up with Dr. Karen Terry or HA[facility] Kaur, on next rounds. - Discharge Data Discharge Date: 05/23/17 Discharge Disposition: DC/Tfer to SNF 03 Condition: Good - Patient Instructions Diet: Usual Diet as Tolerated Activity: As Tolerated Notify Provider of: Fever, Increased Pain, Nausea and/or Vomiting - Discharge Plan Home Medications: Home Meds Cholecalciferol (Vitamin D3) [Vitamin D3] 1,000 unit PO DAILY@0800 09/27/13 [ History] Levothyroxine [Synthroid] 88 mcg PO DAILY@0600 09/27/13 [History] Lutein/Minerals/Vit A,C & E [I-Silvina] 1 cap PO DAILY@0800 06/24/14 [History] Pravastatin [Pravachol] 40 mg PO BEDTIME 06/24/14 [History] Albuterol Sulfate [Albuterol Sulfate HFA] 2 puff INH Q4HR PRN 08/28/14 [History] Omeprazole [Prilosec] 40 mg PO DAILY@199901/20/15 [History] Ferrous Sulfate 325 mg PO DAILY@1200 04/12/15 [History] Venlafaxine [Effexor XR] 150 mg PO DAILY 04/12/15 [History] Docusate Sodium [Colace] 100 mg PO BID 06/27/15 [History] Albuterol [Proventil Neb Soln] 2.5 mg NEB QID PRN 02/25/16 [History] Potassium Chloride [K-Tab ER] 10 meq PO DAILY@0800 02/25/16 [History] Warfarin [Coumadin] 5 mg PO SUTUTHSA@1800 05/11/16 [History] Dapsone 100 mg PO DAILY 06/19/16 [History] Lisinopril [Prinivil] 5 mg PO DAILY 06/19/16 [History] Acetaminophen/HYDROcodone [[place] 325-5 MG] 1 - 2 tab PO Q6H PRN 07/15/16 [ History] predniSONE [Prednisone] 5 mg PO DAILY@1700 07/17/16 [History] predniSONE [Prednisone] 10 mg PO WITHBREAKFAST 07/17/16 [History] Metoprolol Tartrate 12.5 mg PO BID 11/08/16 [History] Sotalol HCl [Sotalol] 120 mg PO DAILY #30 tablet 11/12/16 [Rx] Clindamycin HCl 600 mg PO DAILY PRN 01/16/17 [History] Ondansetron [Zofran] 4 mg PO Q4H PRN 01/16/17 [History] Warfarin [Coumadin] 2.5 mg PO MOWEFR@1800 01/16/17 [History] Roflumilast [Daliresp] 500 mcg PO DAILY #30 tablet 01/20/17 [Rx] Baclofen 5 mg PO BID@06,18 02/03/17 [History] Budesonide [Pulmicort] 0.5 mg INH BID@0900,1600 02/03/17 [History] Rup Rub Analgesic Cream 1 applic TOP BID PRN 02/03/17 [History] Tiotropium [Spiriva HandiHaler] 18 mcg INH DAILY 02/03/17 [History] Bumetanide 0.5 mg PO BID@08,14 03/15/17 [History] GI Cocktail 30 ml PO DAILY PRN #1 bottle 03/25/17 [Rx] Baclofen 5 - 10 mg PO TID PRN 05/21/17 [History] Menthol [Biofreeze] 1 applic TOP BID PRN 05/21/17 [History] Polyethylene Glycol 3350 [MiraLAX] 17 gm PO DAILY@08 05/21/17 [History] Referrals: Karen Terry MD [Primary Care Provider] - (next rounds) - Discharge Summary/Plan Comment DC Time >30 min.: Yes - General Info Subjective Update: Ms. Perla reports feeling well this morning. Daughter at bedside concurs that she seems to be doing much better. She denies any current or interval abdominal pain or nausea and hasn't required any pain or nausea medications since admission. She had quite a bit of air and stool output through her colostomy and feels like this is back to her baseline. Tolerating diet without difficulty. She denies any shortness of breath or edema this morning. Also denies any fever, chills, dysuria, hematuria, urinary frequency, or other concerns. Nursing reports that she has been doing well and have no concerns. - Patient Data Vitals - Most Recent: Last Vital Signs Temp 36.4 C 05/23/17 06:58 Pulse 68 05/23/17 09:07 Resp 18 05/23/17 06:58 BP 145/62 H 05/23/17 08:12 Pulse Ox 96 05/23/17 06:58 Weight - Most Recent: 54.794 kg I&O - Last 24 hours: Intake & Output 05/22/17 05/23/17 05/23/17 22:59 06:59 14:59 Intake Total 175 150 Output Total 600 Balance 175 -450 Lab Results - Last 24 hrs: Laboratory Results - last 24 hr 05/23/17 05/23/17 Range/Units 07:17 07:17 WBC 8.1 (5.0-10.0) 10^3/uL RBC 2.76 L (3.80-5.50) 10^6/uL Hgb 9.4 L (12.0-16.0) g/dL Hct 29.1 L (37.0-47.0) % MCV 105.6 H (82.0-92.0) fL MCH 34.2 H (27.0-31.0) pg MCHC 32.3 (32.0-36.0) g/dL RDW 13.8 (11.5-14.5) % Plt Count 119 L (150-300) 10^3/uL MPV 9.2 (7.4-10.4) fL Neut % (Auto) 68.4 (50.0-70.0) % Lymph % (Auto) 22.4 (20.0-40.0) % [place] % (Auto) 8.0 (2.0-8.0) % Eos % (Auto) 0.9 L (1.0-3.0) % Baso % (Auto) 0.3 (0.0-1.0) % Neut # (Auto) 5.6 (2.5-7.0) 10^3/uL Lymph # (Auto) 1.8 (1.0-4.0) 10^3/uL [place] # (Auto) 0.6 (0.1-0.8) 10^3/uL Eos # (Auto) 0.1 (0.1-0.3) 10^3/uL Baso # (Auto) 0.0 (0.0-0.1) 10^3/uL Sodium 144 (136-145) mmol/L Potassium 3.6 (3.3-5.3) mmol/L Chloride 110 (98-115) mmol/L Carbon Dioxide 26.3 (21.0-32.0) mmol/L BUN 23 (6-25) mg/dL Creatinine 0.85 (0.51-1.17) mg/dL Est Cr Clr Drug Dosing 37.92 mL/min Estimated GFR (MDRD) > 60 mL/min Glucose 97 (70-110) mg/dL Calcium 8.7 (8.7-10.3) mg/dL Med Orders - Current: Current Medications Hydrocodone Bitart/Acetaminophen ([place] 325-5 Mg) 1 tab PO Q6H PRN PRN Reason: Pain Albuterol (Proventil Neb Soln) 2.5 mg NEB QID PRN PRN Reason: Shortness of Breath Baclofen (Lioresal) 5 - 10 mg PO TID PRN PRN Reason: Muscle Spasm Last Admin: 05/21/17 16:18 Dose: 5 mg Budesonide (Pulmicort) 0.5 mg INH BID@0900,1600 [facility] Last Admin: 05/23/17 09:07 Dose: 0.5 mg Bumetanide (Bumex) 0.5 mg PO BID@0800,1400 [facility] Last Admin: 05/23/17 07:52 Dose: 0.5 mg Dapsone (Dapsone) 100 mg PO DAILY [facility] Last Admin: 05/23/17 08:09 Dose: 100 mg Ferrous Sulfate (Ferrous Sulfate) 325 mg PO DAILY@1200 [facility] Levothyroxine Sodium (Synthroid) 88 mcg PO DAILY@0600 [facility] Last Admin: 05/23/17 06:17 Dose: 88 mcg Lisinopril (Prinivil) 5 mg PO DAILY [facility] Last Admin: 05/23/17 08:12 Dose: 5 mg Metoclopramide HCl (Reglan) 5 mg IVPUSH Q6H PRN PRN Reason: Nausea Metoprolol Tartrate (Lopressor) 12.5 mg PO BID [facility] Last Admin: 05/23/17 08:11 Dose: 12.5 mg Omeprazole (Omeprazole) 20 mg PO ACBREAKFAST [facility] Last Admin: 05/23/17 07:53 Dose: 20 mg Ondansetron HCl (Zofran) 4 mg IVPUSH Q6H PRN PRN Reason: Nausea/Vomiting Last Admin: 05/21/17 16:18 Dose: 4 mg Potassium Chloride (Klor-Con 10) 10 meq PO DAILY [facility] Last Admin: 05/23/17 08:11 Dose: 10 meq Prednisone (Prednisone) 5 mg PO DAILY@1700 [facility] Last Admin: 05/22/17 16:41 Dose: 5 mg Prednisone (Prednisone) 10 mg PO WITHBREAKFAST [facility] Last Admin: 05/23/17 07:55 Dose: 10 mg Roflumilast (Daliresp) 500 mcg PO DAILY [facility] Last Admin: 05/23/17 08:09 Dose: 500 mcg Simvastatin (Zocor) 20 mg PO BEDTIME [facility] Last Admin: 05/22/17 21:20 Dose: 20 mg Sotalol HCl (Betapace) 120 mg PO DAILY [facility] Last Admin: 05/23/17 08:07 Dose: 120 mg Tiotropium [place] (Spiriva Handihaler) 18 mcg INH DAILY [facility] Last Admin: 05/23/17 08:17 Dose: 18 mcg Venlafaxine HCl (Effexor Xr) 150 mg PO DAILY [facility] Last Admin: 05/23/17 08:11 Dose: 150 mg Warfarin Sodium (Coumadin) 2.5 mg PO MOWEFR@1800 [facility] Last Admin: 05/22/17 18:20 Dose: 2.5 mg Warfarin Sodium (Coumadin) 5 mg PO SUTUTHSA@1800 [facility] Last Admin: 05/21/17 18:02 Dose: 5 mg Discontinued Medications Hydrocodone Bitart/Acetaminophen ([place] 325-5 Mg) 1 - 2 tab PO Q6H PRN PRN Reason: Pain Baclofen (Lioresal) 5 mg PO BID@06,18 [facility] Bumetanide (Bumex) 0.5 mg PO BID@0800,1400 [facility] Last Admin: 05/21/17 13:43 Dose: 0.5 mg Ceftriaxone Sodium (Rocephin) 1 gm IVPUSH ONETIME ONE Stop: 05/21/17 10:47 Last Admin: 05/21/17 11:02 Dose: 1 gm Cholecalciferol (Vitamin D3) 1,000 units PO DAILY@0800 [facility] Docusate Sodium (Colace) 100 mg PO BID PRN PRN Reason: Constipation Ferrous Sulfate (Ferrous Sulfate) 325 mg PO DAILY@1200 [facility] Last Admin: 05/21/17 13:42 Dose: 325 mg Sodium Chloride (Normal Saline) 1,000 mls @ 75 mls/hr IV ASDIRECTED [facility] Last Admin: 05/22/17 03:38 Dose: 75 mls/hr Iopamidol (Isovue-300 (61%)) 75 ml IV ONETIME ONE Stop: 05/21/17 09:51 Last Admin: 05/22/17 07:27 Dose: Not Given Morphine Sulfate (Morphine) 2 mg IVPUSH Q4H PRN PRN Reason: Pain (severe 7-10) Multivitamins/Minerals (Ocuvite) 1 each PO DAILY@0800 [facility] Omeprazole (Omeprazole) 40 mg PO DAILY@2000 [facility] Ondansetron HCl (Zofran) 4 mg IVPUSH ONETIME ONE Stop: 05/21/17 10:14 Last Admin: 05/21/17 10:18 Dose: 4 mg Polyethylene Glycol (Miralax) 17 gm PO DAILY@08 PRN PRN Reason: Constipation Potassium Chloride (Klor-Con 10) 10 meq PO DAILY@0800 [facility] Pravastatin Sodium (Pravachol) 40 mg PO BEDTIME [facility] Pravastatin Sodium (Pravachol) 40 mg PO BEDTIME [facility] Sodium Chloride (Normal Saline) 50 ml FLUSH ASDIRECTED [facility] Last Admin: 05/21/17 11:38 Dose: 50 ml - Exam Physical Findings Comments:: GENERAL: Well appearing elderly white female sitting in bedside chair. HEENT: Normocephalic, atraumatic. Conjunctiva clear. Nares patent without discharge. Hearing grossly intact. Mucus membranes moist. NECK: Supple, no masses. CV: Regular rate and rhythm, 2/6 systolic murmur at base, no rub or gallops. 2 + radial pulses. PULMONARY: Normal effort, clear to auscultation bilaterally with diminished air movement in the bases, no wheezes, rales, or rhonchi. ABDOMEN: Active bowel sounds in all 4 quadrants, soft, nondistended, nontender. Colostomy bag with air and stool output without blood. EXTREMITIES: No edema, cyanosis, or clubbing. MUSCULOSKELETAL: Moves all extremities well. NEUROLOGICAL: No obvious deficits. DERMATOLOGIC: No rashes or suspicious lesions in exposed areas. Venous stasis changes of bilateral lower extremities. Diffuse bruising of upper extremities. PSYCHIATRIC: Alert, oriented x4, interactive, appropriate affect. *Q Meaningful Use (DIS) - VTE *Q VTE Criteria *Q: - Stroke *Q Stroke Criteria *Q: - AMI *Q AMI Criteria *Q:
[2017-05-23] MEDS ORDERED: Ferrous Sulfate 325 MG Tab PO SCH (12:00)
== END 2017-05-23 11:30 | DRG 389 ==
LOC: KA.ED 08:01 → KA.MS 10:55
PROVIDERS: ADMIT Physician Assistant Surgical; ATTEND Family Medicine
DX: K56.609 Unspecified intestinal obstruction, unspecified as to partial versus complete obstruction (principal); N30.00 Acute cystitis without hematuria; I13.0 Hypertensive heart and chronic kidney disease with heart failure and stage 1 through stage 4 chronic kidney disease, or unspecified chronic kidney disease; M31.30 Wegener's granulomatosis without renal involvement; D72.829 Elevated white blood cell count, unspecified; D69.6 Thrombocytopenia, unspecified; E86.0 Dehydration; I48.91 Unspecified atrial fibrillation; I50.9 Heart failure, unspecified; E78.00 Pure hypercholesterolemia, unspecified; J44.9 Chronic obstructive pulmonary disease, unspecified; N18.9 Chronic kidney disease, unspecified; E11.9 Type 2 diabetes mellitus without complications; E03.9 Hypothyroidism, unspecified; F32.9 Major depressive disorder, single episode, unspecified; Z95.2 Presence of prosthetic heart valve; Z93.3 Colostomy status; Z88.0 Allergy status to penicillin; Z88.8 Allergy status to other drugs, medicaments and biological substances; Z79.899 Other long term (current) drug therapy; Z79.01 Long term (current) use of anticoagulants; Z87.891 Personal history of nicotine dependence; I25.10 Atherosclerotic heart disease of native coronary artery without angina pectoris; K21.9 Gastro-esophageal reflux disease without esophagitis; D64.9 Anemia, unspecified; M54.9 Dorsalgia, unspecified; G89.29 Other chronic pain
CPT/HCPCS: 80053; 81001; 83690; 85025; 85610; 87086; 96374; 99284; J2405; 36415; 74177; 80048; 82607; 82746; 94640; 99283; A9270-GY; J0696; J7030; Q9967

== ENCOUNTER 2017-08-01 12:42 | Inpatient (IN) | payer MEDICARE, BC ==
--- NOTE | 2017-08-01 13:43 | EDM.PDOC ---
ED HPI GENERAL MEDICAL PROBLEM - General Chief Complaint: Lower Extremity Injury/Pain Stated Complaint: SKIN TEAR Time Seen by Provider: 08/01/17 13:33 Source of Information: Reports: Patient History Limitations: Reports: No Limitations - History of Present Illness INITIAL COMMENTS - FREE TEXT/NARRATIVE: Patient is an 82-year-old female who presents to the emergency department this afternoon with a complaint of right lower extremity wound. Patient was seen at [facility] on 07/21/2017 for tissue avulsion to the site. At that time wound was dressed and patient was told to follow-up. Patient follow-up week later, was seen by Dr. Ramachandran and the patient was advised to continue care. However, patient did not clean wound, did not change dressing, and was scheduled to see provider on August 03. Patient's daughter saw her today and noticed a foul odor coming from extremity. Daughter decided to bring patient to the emergency room for evaluation. Patient denies fever, additional trauma, groin pain, nausea, vomiting, diarrhea, chest pain, or shortness of breath. Onset: Gradual Onset Date: 07/21/17 Duration: Week(s): Location: Reports: Lower Extremity, Right Quality: Reports: Burning Severity: Mild Improves with: Reports: None Worsens with: Reports: None Context: Reports: Trauma Associated Symptoms: Reports: No Other Symptoms - Related Data Allergies Allergy/AdvReac Type Severity Reaction Status Date / Time penicillamine Allergy Severe Anaphylactic Verified 08/01/17 12:51 Shock Penicillins Allergy Severe Anaphylactic Verified 08/01/17 12:51 Shock Cephalosporins Allergy Unknown Cannot Verified 08/01/17 12:51 Remember aspirin Allergy Other Verified 08/01/17 12:51 Carbapenems Allergy Cannot Verified 08/01/17 12:51 Remember divalproex sodium Allergy Delusions Verified 08/01/17 12:51 [From Depakote] Home Meds: Home Meds Cholecalciferol (Vitamin D3) [Vitamin D3] 1,000 unit PO DAILY@0800 09/27/13 [ History] Levothyroxine [Synthroid] 88 mcg PO DAILY@0600 09/27/13 [History] Lutein/Minerals/Vit A,C & E [I-Silvina] 1 cap PO DAILY@0800 06/24/14 [History] Pravastatin [Pravachol] 40 mg PO BEDTIME 06/24/14 [History] Albuterol Sulfate [Albuterol Sulfate HFA] 2 puff INH Q4HR PRN 08/28/14 [History] Omeprazole [Prilosec] 40 mg PO DAILY@199901/20/15 [History] Ferrous Sulfate 325 mg PO DAILY@1200 04/12/15 [History] Venlafaxine [Effexor XR] 150 mg PO DAILY 04/12/15 [History] Docusate Sodium [Colace] 100 mg PO BID 06/27/15 [History] Albuterol [Proventil Neb Soln] 2.5 mg NEB QID PRN 02/25/16 [History] Potassium Chloride [K-Tab ER] 10 meq PO DAILY@0800 02/25/16 [History] Warfarin [Coumadin] 5 mg PO SUTUTHSA@1800 05/11/16 [History] Dapsone 100 mg PO DAILY 06/19/16 [History] Lisinopril [Prinivil] 5 mg PO DAILY 06/19/16 [History] Acetaminophen/HYDROcodone [Mccormick 325-5 MG] 1 - 2 tab PO Q6H PRN 07/15/16 [ History] predniSONE [Prednisone] 5 mg PO DAILY@1700 07/17/16 [History] predniSONE [Prednisone] 10 mg PO WITHBREAKFAST 07/17/16 [History] Metoprolol Tartrate 12.5 mg PO BID 11/08/16 [History] Sotalol HCl [Sotalol] 120 mg PO DAILY #30 tablet 11/12/16 [Rx] Clindamycin HCl 600 mg PO DAILY PRN 01/16/17 [History] Ondansetron [Zofran] 4 mg PO Q4H PRN 01/16/17 [History] Warfarin [Coumadin] 2.5 mg PO MOWEFR@1800 01/16/17 [History] Roflumilast [Daliresp] 500 mcg PO DAILY #30 tablet 01/20/17 [Rx] Baclofen 5 mg PO BID@06,18 02/03/17 [History] Budesonide [Pulmicort] 0.5 mg INH BID@0900,1600 02/03/17 [History] Rup Rub Analgesic Cream 1 applic TOP BID PRN 02/03/17 [History] Tiotropium [Spiriva HandiHaler] 18 mcg INH DAILY 02/03/17 [History] Bumetanide 0.5 mg PO BID@08,14 03/15/17 [History] GI Cocktail 30 ml PO DAILY PRN #1 bottle 03/25/17 [Rx] Baclofen 5 - 10 mg PO TID PRN 05/21/17 [History] Menthol [Biofreeze] 1 applic TOP BID PRN 05/21/17 [History] Polyethylene Glycol 3350 [MiraLAX] 17 gm PO DAILY@05/21/17 [History] Past Medical History HEENT History: Reports: Hard of Hearing, Impaired Vision Cardiovascular History: Reports: Afib, Heart Failure, Heart Valve Replacement, High Cholesterol, Hypertension, MS, SOB on Exertion, Other (See Below) Other Cardiovascular History: mitral stenosis,aortic stenosis,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,vasculitis Respiratory History: Reports: COPD, Pneumonia, Recurrent, SOB, Other (See Below) Other Respiratory History: pleural effusions, on home oxygen 3L at rest & 4L with activity Gastrointestinal History: Reports: Bowel Obstruction, Diverticulosis, GERD Genitourinary History: Reports: Chronic Renal Insuffiency, Renal Disease, Other (See Below) Other Genitourinary History: acquired cyst of kidney DIRECTOR OF CLAIMS History: Reports: Other OB/BYN History: 6 daughters, live term births Musculoskeletal History: Reports: Arthritis, Back Pain, Chronic, Osteoporosis, Other (See Below) Other Musculoskeletal History: compression fracture of thoracolumbar vertebra Neurological History: Reports: Migraines Other Neuro History: new onset confusion starting 06/18/2016 Psychiatric History: Reports: Depression Endocrine/Metabolic History: Reports: Diabetes, Type II, Hypothyroidism, Osteoporosis Hematologic History: Reports: Anemia, Blood Transfusion(s) Immunologic History: Reports: Other (See Below) Other Immunologic History: chronic steroid use Oncologic (Cancer) History: Reports: Breast, Colon Dermatologic History: Reports: Venous Stasis Dermatitis, Other (See Below) Other Dermatologic History: discolored skin from chronic steroid use - Infectious Disease History Infectious Disease History: Reports: Chicken Pox, Measles, Rheumatic Fever - Past Surgical History Head Surgeries/Procedures: Reports: None HEENT Surgical History: Reports: Cataract Surgery Cardiovascular Surgical History: Reports: Valve Replacement Respiratory Surgical History: Reports: Thoracentesis GI Surgical History: Reports: Colostomy Neurological Surgical History: Reports: Laminectomy Musculoskeletal Surgical History: Reports: Other (See Below) Other Musculoskeletal Surgeries/Procedures:: spinal injections, laminectomy Oncologic Surgical History: Reports: Mastectomy Dermatological Surgical History: Reports: None Social & Family History - Family History Family Medical History: Noncontributory HEENT: Reports: None Cardiac: Reports: None Respiratory: Reports: None GI: Reports: None : Reports: None OBGYN: Reports: None Musculoskeletal: Reports: None Neurological: Reports: None Psychiatric: Reports: None Endocrine/Metabolic: Reports: None Hematologic: Reports: None Immunologic: Reports: None Dermatologic: Reports: None Oncologic: Reports: Other (See Below) Other Oncologic Family History: parents had ca - Tobacco Use Smoking Status *Q: Former Smoker Years of Tobacco use: 40 Packs/Tins Daily: 0.5 Used Tobacco, but Quit: Yes Month Tobacco Last Used: dec Second Hand Smoke Exposure: No - Caffeine Use Caffeine Use: Reports: Coffee, Soda - Alcohol Use Days Per Week of Alcohol Use: 0 - Recreational Drug Use Recreational Drug Use: No Recreational Drug Last Use: Coffee 3 cups of coffee per day, very occasional soda - Living Situation & Occupation Living situation: Reports: Occupation: Retired Review of Systems - Review of Systems Review Of Systems: ROS reveals no pertinent complaints other than HPI. Constitutional: Reports: No Symptoms Eyes: Reports: No Symptoms Ears: Reports: No Symptoms Nose: Reports: No Symptoms Mouth/Throat: Reports: No Symptoms Respiratory: Reports: No Symptoms Cardiovascular: Reports: No Symptoms GI/Abdominal: Reports: No Symptoms Genitourinary: Reports: No Symptoms Musculoskeletal: Reports: No Symptoms Skin: Reports: Wound (Left lower extremity at the posterior mid-calf) Neurological: Reports: No Symptoms Psychiatric: Reports: No Symptoms ED EXAM, GENERAL - Physical Exam Exam: See Below Exam Limited By: No Limitations General Appearance: Alert, WD/WN, No Apparent Distress Throat/Mouth: Normal Inspection, Normal Oropharynx, No Airway Compromise Respiratory/Chest: No Respiratory Distress, Lungs Clear, Normal Breath Sounds, No Accessory Muscle Use, Chest Non-Tender Cardiovascular: Regular Rate, Rhythm, Diastolic Murmur GI/Abdominal: Normal Bowel Sounds, Soft, Non-Tender Back Exam: Normal Inspection. No: CVA Tenderness (L), CVA Tenderness (R) Extremities: No Pedal Edema, Redness Neurological: Alert, Oriented, Normal Cognition Psychiatric: Normal Affect, Normal Mood Skin Exam: Warm, Dry, Normal Color, No Rash, Wound/Incision (Left lower extremity at posterior mid calf. There is a 2 cm oval wound with tissue avulsion, border erythema, and yellow discharge.) Course - Vital Signs Last Recorded V/S: Last Vital Signs Temp 98 F 08/01/17 12:47 Pulse 61 08/01/17 12:47 Resp 16 08/01/17 12:47 BP 127/32 L 08/01/17 12:47 Pulse Ox 91 L 08/01/17 12:47 - Orders/Labs/Meds Orders: Active Orders 24 hr Category Date Time Status Peripheral IV Care [RC] . DIRECTED Care 08/01/17 13:01 Active Tibia Fibula Rt [CR] Stat Exams 08/01/17 13:49 Ordered CULTURE WOUND [RM] Stat Lab 08/01/17 13:02 Received Sodium Chloride 0.9% [Syrex Flush] Med 08/01/17 13:01 Active 5 ml FLUSH Q8HR PRN Peripheral IV Insertion Adult [OM.PC] Routine Oth 08/01/17 13:01 Ordered Medication Orders Sodium Chloride (Syrex Flush) 5 ml FLUSH Q8HR PRN PRN Reason: Keep Vein Open Labs: Laboratory Tests 08/01/17 08/01/17 Range/Units 13:15 13:15 WBC 12.5 H (5.0-10.0) 10^3/uL RBC 2.82 L (3.80-5.50) 10^6/uL Hgb 9.8 L (12.0-16.0) g/dL Hct 31.0 L (37.0-47.0) % MCV 109.8 H (82.0-92.0) fL MCH 34.6 H (27.0-31.0) pg MCHC 31.5 L (32.0-36.0) g/dL RDW 19.3 H (11.5-14.5) % Plt Count 190 (150-300) 10^3/uL MPV 9.3 (7.4-10.4) fL Neut % (Auto) 83.8 H (50.0-70.0) % Lymph % (Auto) 11.4 L (20.0-40.0) % [place] % (Auto) 3.6 (2.0-8.0) % Eos % (Auto) 0.4 L (1.0-3.0) % Baso % (Auto) 0.8 (0.0-1.0) % Neut # (Auto) 10.5 H (2.5-7.0) 10^3/uL Lymph # (Auto) 1.4 (1.0-4.0) 10^3/uL [place] # (Auto) 0.4 (0.1-0.8) 10^3/uL Eos # (Auto) 0.1 (0.1-0.3) 10^3/uL Baso # (Auto) 0.1 (0.0-0.1) 10^3/uL Sodium 149 H (136-145) mmol/L Potassium 3.7 (3.3-5.3) mmol/L Chloride 108 (98-115) mmol/L Carbon Dioxide 30.2 (21.0-32.0) mmol/L BUN 27 H (6-25) mg/dL Creatinine 1.04 (0.51-1.17) mg/dL Est Cr Clr Drug Dosing 30.99 mL/min Estimated GFR (MDRD) 51 mL/min Glucose 183 H (70-110) mg/dL Calcium 9.4 (8.7-10.3) mg/dL Total Bilirubin 0.7 (0.2-1.0) mg/dL AST 16 (15-37) U/L ALT 17 (12-78) U/L Alkaline Phosphatase 65 (46-116) IU/L Total Protein 5.9 L (6.4-8.2) g/dL Albumin 3.12 (3.00-4.80) g/dL Meds: Medications Generic Name Dose Route Start Last Admin Trade Name Freq PRN Reason Stop Dose Admin Sodium Chloride 5 ml 08/01/17 13:01 Syrex Flush FLUSH Q8HR PRN Keep Vein Open Discontinued Medications Generic Name Dose Route Start Last Admin Trade Name Freq PRN Reason Stop Dose Admin Ceftriaxone Sodium 1 gm 08/01/17 13:45 Rocephin IVPUSH 08/01/17 13:46 ONETIME ONE Mupirocin 1 gm 08/01/17 13:49 Bactroban Oint TOP 08/01/17 13:50 ONETIME ONE Trimethoprim/Sulfamethoxazole 1 tab 08/01/17 13:45 Septra Ds PO 08/01/17 13:46 ONETIME ONE - Re-Assessments/Exams Free Text/Narrative Re-Assessment/Exam: 08/01/17 13:50 Patient afebrile, nontoxic appearing, vital signs stable, daughter at bedside. Discussed case with Norma Seymour, nurse practitioner from [facility] and patient will be admitted inpatient and followed. Departure - Departure Time of Disposition: 13:51 Disposition: Admitted As Inpatient 68 Condition: Fair Clinical Impression: Wound infection Cellulitis of lower extremity Qualifiers: Laterality: right Qualified Code(s): L03.115 - Cellulitis of right lower limb - Discharge Information Referrals: Connie Terry MD [Primary Care Provider] - Forms: ED Department Discharge - My Orders Last 24 Hours: My Active Orders 08/01/17 13:01 Peripheral IV Care [RC] . DIRECTED Sodium Chloride 0.9% [Syrex Flush] 5 ml FLUSH Q8HR PRN Peripheral IV Insertion Adult [OM.PC] Routine 08/01/17 13:02 CULTURE WOUND [RM] Stat 08/01/17 13:49 Tibia Fibula Rt [CR] Stat - Assessment/Plan Last 24 Hours: My Active Orders 08/01/17 13:01 Peripheral IV Care [RC] . DIRECTED Sodium Chloride 0.9% [Syrex Flush] 5 ml FLUSH Q8HR PRN Peripheral IV Insertion Adult [OM.PC] Routine 08/01/17 13:02 CULTURE WOUND [RM] Stat 08/01/17 13:49 Tibia Fibula Rt [CR] Stat Assessment:: Right lower extremity wound infection Plan: Admit inpatient to [facility]
[2017-08-01] MEDS ORDERED: cefTRIAXone 1 GM Vial IVPUSH ONE (13:45)
[2017-08-01] MEDS ORDERED: Sulfamethoxazole/Trimethoprim 800-160 MG Tab PO ONE (13:45)
[2017-08-01] MEDS ORDERED: Mupirocin Oint 22 GM Tube TOP ONE (13:49)
[2017-08-01] MEDS: Sodium Chloride 0.9% 5 ML Syringe FLUSH PRN (14:37)
[2017-08-01] MEDS ORDERED: Albuterol HFA 18 Gm Inhaler INH PRN (14:44)
[2017-08-01] MEDS ORDERED: [UNRECOGNIZED DRUG - OTHER] TOP PRN (14:44)
[2017-08-01] MEDS ORDERED: BIOFREEZE TOP PRN (14:44)
[2017-08-01] MEDS ORDERED: Albuterol 0.083% 2.5 MG/3 ML Neb Soln NEB PRN (14:44)
[2017-08-01] MEDS ORDERED: Baclofen 10 MG Tab PO PRN (14:44)
[2017-08-01] MEDS ORDERED: Ondansetron 4 MG Tab.DIS PO PRN (14:44)
[2017-08-01] MEDS ORDERED: GI Cocktail 45 ML BOTTLE PO PRN (14:44)
--- NOTE | 2017-08-01 15:17 | PCM.HP ---
H&P History of Present Illness - General Date of Service: 08/01/17 Admit Problem/Dx: Admission Diagnosis/Problem Admission Diagnosis/Problem Cellulitis of lower extremity Source of Information: Patient, Family, Old Records, Provider, RN History Limitations: Reports: No Limitations - History of Present Illness Initial Comments - Free Text/Narative: This is an 82 year old female who presented to the ED with concerns of a right lower leg infection. On 07/21/17, the patient reports that she suffered a skin tear to the back of her right calf when her was moving her legs. She had a nurse at the assisted living facility look at it and steri-strips were applied. The patient presented to the clinic on 07/27/17 due to increased pain and swelling. She was seen and instructed to continue the dressing and that it needed time to heal. The daughter came to visit today and noticed a foul odor coming from the leg. Denies fever, chills. The patient reports the leg is quite painful to walk on. ED workup included labs and wound culture. WBC 12.5 with left shift. She was given a one time dose of IV rocephin and po Bactrim. She was admitted to inpatient status for continued IV antibiotics and probable debridement. - Related Data Allergies/Adverse Reactions: Allergies Allergy/AdvReac Type Severity Reaction Status Date / Time penicillamine Allergy Severe Anaphylactic Verified 08/01/17 12:51 Shock Penicillins Allergy Severe Anaphylactic Verified 08/01/17 12:51 Shock Cephalosporins Allergy Unknown Cannot Verified 08/01/17 12:51 Remember aspirin Allergy Other Verified 08/01/17 12:51 Carbapenems Allergy Cannot Verified 08/01/17 12:51 Remember divalproex sodium Allergy Delusions Verified 08/01/17 12:51 [From Depakote] imipenem Allergy Cannot Verified 08/01/17 13:58 Remember Iodinated Contrast- Oral and Allergy Chest Pain Verified 08/01/17 13:58 IV Dye valproic acid Allergy Confusion Verified 08/01/17 13:58 Home Medications: Home Meds Cholecalciferol (Vitamin D3) [Vitamin D3] 1,000 unit PO DAILY@0800 09/27/13 [ History] Levothyroxine [Synthroid] 88 mcg PO DAILY@0600 09/27/13 [History] Pravastatin [Pravachol] 40 mg PO BEDTIME 06/24/14 [History] Albuterol Sulfate [Albuterol Sulfate HFA] 2 puff INH Q4HR PRN 08/28/14 [History] Omeprazole [Prilosec] 40 mg PO DAILY@199901/20/15 [History] Ferrous Sulfate 325 mg PO DAILY@1200 04/12/15 [History] Venlafaxine [Effexor XR] 150 mg PO DAILY 04/12/15 [History] Docusate Sodium [Colace] 100 mg PO BID 06/27/15 [History] Albuterol [Proventil Neb Soln] 2.5 mg NEB QID PRN 02/25/16 [History] Potassium Chloride [K-Tab ER] 10 meq PO DAILY@0800 02/25/16 [History] Warfarin [Coumadin] 5 mg PO SUTUWETHSA@1800 05/11/16 [History] Dapsone 100 mg PO DAILY 06/19/16 [History] Lisinopril [Prinivil] 5 mg PO DAILY 06/19/16 [History] Acetaminophen/HYDROcodone [[place] 325-5 MG] 1 - 2 tab PO Q6H PRN 07/15/16 [ History] predniSONE [Prednisone] 5 mg PO DAILY@1700 07/17/16 [History] predniSONE [Prednisone] 10 mg PO WITHBREAKFAST 07/17/16 [History] Metoprolol Tartrate 12.5 mg PO BID 11/08/16 [History] Sotalol HCl [Sotalol] 120 mg PO DAILY #30 tablet 11/12/16 [Rx] Clindamycin HCl 600 mg PO ASDIRECTED PRN 01/16/17 [History] Ondansetron [Zofran] 4 mg PO Q4H PRN 01/16/17 [History] Warfarin [Coumadin] 2.5 mg PO MOFR@1800 01/16/17 [History] Roflumilast [Daliresp] 500 mcg PO DAILY #30 tablet 01/20/17 [Rx] Budesonide [Pulmicort] 0.5 mg INH BID@0900,1600 02/03/17 [History] Rup Rub Analgesic Cream 1 applic TOP BID PRN 02/03/17 [History] Tiotropium [Spiriva HandiHaler] 18 mcg INH DAILY 02/03/17 [History] Bumetanide 0.5 mg PO BID@08,14 03/15/17 [History] GI Cocktail 30 ml PO DAILY PRN #1 bottle 03/25/17 [Rx] Baclofen 5 - 10 mg PO TID PRN 05/21/17 [History] Menthol [Biofreeze] 1 applic TOP BID PRN 05/21/17 [History] Polyethylene Glycol 3350 [MiraLAX] 17 gm PO DAILY@08 05/21/17 [History] Arformoterol [Brovana] 15 mcg INH BID 08/01/17 [History] Cyanocobalamin (Vitamin B-12) [Cyanocobalamin Injection] 1,000 mcg SQ TU [History] Lutein/Minerals/Vit A,C & E [I-Silvina] 1 tab PO DAILY 08/01/17 [History] Past Medical History HEENT History: Reports: Hard of Hearing, Impaired Vision Cardiovascular History: Reports: Afib, Heart Failure, Heart Valve Replacement, High Cholesterol, Hypertension, [place], SOB on Exertion, Other (See Below) Other Cardiovascular History: mitral stenosis,aortic stenosis,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,vasculitis Respiratory History: Reports: COPD, Pneumonia, Recurrent, SOB, Other (See Below) Other Respiratory History: pleural effusions, on home oxygen 3L at rest & 4L with activity Gastrointestinal History: Reports: Bowel Obstruction, Diverticulosis, GERD Genitourinary History: Reports: Chronic Renal Insuffiency, Renal Disease, Other (See Below) Other Genitourinary History: acquired cyst of kidney BLANKET FOLDER History: Reports: Other OB/BYN History: 6 daughters, live term births Musculoskeletal History: Reports: Arthritis, Back Pain, Chronic, Osteoporosis, Other (See Below) Other Musculoskeletal History: compression fracture of thoracolumbar vertebra Neurological History: Reports: Migraines Other Neuro History: new onset confusion starting 06/18/2016 Psychiatric History: Reports: Depression Endocrine/Metabolic History: Reports: Diabetes, Type II, Hypothyroidism, Osteoporosis Hematologic History: Reports: Anemia, Blood Transfusion(s) Immunologic History: Reports: Other (See Below) Other Immunologic History: chronic steroid use Oncologic (Cancer) History: Reports: Breast, Colon Dermatologic History: Reports: Venous Stasis Dermatitis, Other (See Below) Other Dermatologic History: discolored skin from chronic steroid use - Infectious Disease History Infectious Disease History: Reports: Chicken Pox, Measles, Rheumatic Fever - Past Surgical History Head Surgeries/Procedures: Reports: None HEENT Surgical History: Reports: Cataract Surgery Cardiovascular Surgical History: Reports: Valve Replacement Respiratory Surgical History: Reports: Thoracentesis GI Surgical History: Reports: Colostomy Neurological Surgical History: Reports: Laminectomy Musculoskeletal Surgical History: Reports: Other (See Below) Other Musculoskeletal Surgeries/Procedures:: spinal injections, laminectomy Oncologic Surgical History: Reports: Mastectomy Dermatological Surgical History: Reports: None Social & Family History - Family History HEENT: Reports: None Cardiac: Reports: None Respiratory: Reports: None GI: Reports: None : Reports: None OBGYN: Reports: None Musculoskeletal: Reports: None Neurological: Reports: None Psychiatric: Reports: None Endocrine/Metabolic: Reports: None Hematologic: Reports: None Immunologic: Reports: None Dermatologic: Reports: None Oncologic: Reports: Other (See Below) Other Oncologic Family History: parents had ca - Tobacco Use Smoking Status *Q: Former Smoker Years of Tobacco use: 40 Packs/Tins Daily: 0.5 Used Tobacco, but Quit: Yes Month Tobacco Last Used: dec Second Hand Smoke Exposure: No - Caffeine Use Caffeine Use: Reports: Coffee, Soda - Alcohol Use Days Per Week of Alcohol Use: 0 - Recreational Drug Use Recreational Drug Use: No Recreational Drug Last Use: Coffee 3 cups of coffee per day, very occasional soda - Living Situation & Occupation Living situation: Reports: Occupation: Retired H&P Review of Systems - Review of Systems: Review Of Systems: See Below General: Denies: Fever, Chills, Decreased Appetite HEENT: Reports: Glasses. Denies: Ear Pain, Headaches, Sinus Congestion, Sore Throat Pulmonary: Denies: Shortness of Breath, Cough Cardiovascular: Reports: Dyspnea on Exertion. Denies: Chest Pain, Edema, Lightheadedness Gastrointestinal: Denies: Abdominal Pain, Constipation, Diarrhea, Decreased Appetite, Nausea, Vomiting Genitourinary: Denies: Dysuria, Frequency Musculoskeletal: Reports: Leg Pain (right posterior leg pain) Skin: Reports: Wound (right posterior lower leg) Neurological: Denies: Confusion, Dizziness, Headache Hematologic/Lymphatic: Reports: Anemia, Easy Bleeding, Easy Bruising Exam - Exam Exam: See Below - Vital Signs Vital Signs: Last Vital Signs Temp 97.8 F 08/01/17 13:53 Pulse 66 02/03/18 13:53 Resp 18 08/01/17 13:53 BP 129/49 L 08/01/17 13:53 Pulse Ox 95 08/01/17 13:53 Weight: 115 lb 8 oz - Exam Quality Assessment: Supplemental Oxygen (3 liters per nasal cannula 95%, this is patient's baseline oxygen use), DVT Prophylaxis (on Warfarin) General: Alert, Oriented, Cooperative HEENT: Conjunctiva Clear, Hearing Intact, Mucosa Moist & Wilson, Posterior Pharynx Clear, TMs Clear, Glasses Neck: Supple, Trachea Midline. No: Lymphadenopathy Lungs: Normal Respiratory Effort, Decreased Breath Sounds (throughout lung zaldivar), Wheezing (to bilateral bases). No: Crackles Cardiovascular: Regular Rate, Regular Rhythm, Normal S1, Normal S2 GI/Abdominal Exam: Normal Bowel Sounds, Soft, Non-Tender Extremities: No Pedal Edema Skin: Warm, Dry, Wound (Right posterior lower extremity (see photos in the chart ): circular wound with blackened wound bed and yellowish drainage with surrounding erythema) Neurological: Normal Speech Neuro Extensive - Mental Status: Alert, Oriented x3, Normal Mood/Affect, Normal Cognition, Memory Intact Psychiatric: Alert, Normal Affect, Normal Mood - Patient Data Result Diagrams: 08/01/17 13:15 08/01/17 13:15 *Q Meaningful Use (ADM) - VTE *Q VTE Criteria *Q: - Stroke *Q Stroke Criteria *Q: - AMI *Q AMI Criteria *Q: Problem List Initiated/Reviewed/Updated: Yes Orders Last 24hrs: Active Orders 24 hr Category Date Time Status Vital Signs [RC] Q8H Care 08/01/17 14:35 Ordered INR,PT,PROTHROMBIN TIME [COAG] Routine Lab 08/01/17 14:57 Ordered Acetaminophen/HYDROcodone [[place] 325-5 MG] Med 08/01/17 14:44 Ordered 1 - 2 tab PO Q6H PRN Albuterol [Proventil Neb Soln] Med 08/01/17 14:44 Ordered 2.5 mg NEB QID PRN Albuterol [Ventolin HFA] Med 08/01/17 14:44 Ordered 2 puff INH Q4HR PRN Arformoterol [Brovana] Med 08/01/17 21:00 Ordered 15 mcg INH BID Baclofen [Lioresal] Med 08/01/17 14:44 Ordered 5 - 10 mg PO TID PRN Budesonide [Pulmicort] Med 08/01/17 16:00 Ordered 0.5 mg INH BID@0900,1600 Bumetanide [Bumetanide] Med 08/02/17 08:00 Ordered 0.5 mg PO BID@08,14 Cholecalciferol (Vitamin D3) [Vitamin D3] Med 08/02/17 08:00 Ordered 1,000 units PO DAILY@0800 Dapsone Med 08/02/17 09:00 Ordered 100 mg PO DAILY Docusate Sodium [Colace] Med 08/01/17 21:00 Ordered 100 mg PO BID Ferrous Sulfate Med 08/02/17 12:00 Ordered 325 mg PO DAILY@1200 GI Cocktail Med 08/01/17 14:44 Ordered 30 ml PO DAILY PRN Levothyroxine [Synthroid] Med 08/02/17 06:00 Ordered 88 mcg PO DAILY@0600 Lisinopril [Prinivil] Med 08/02/17 09:00 Ordered 5 mg PO DAILY Lutein/Minerals/Vit A,C & E [Ocuvite] Med 08/02/17 09:00 Ordered 1 tab PO DAILY Menthol [Biofreeze] Med 08/01/17 14:44 Ordered 1 applic TOP BID PRN Metoprolol Tartrate [Lopressor] Med 08/01/17 21:00 Ordered 12.5 mg PO BID Omeprazole Med 08/01/17 20:00 Ordered 40 mg PO DAILY@2000 Ondansetron Med 08/01/17 14:44 Ordered 4 mg PO Q4H PRN Polyethylene Glycol 3350 [MiraLAX] Med 08/02/17 08:00 Ordered 17 gm PO DAILY@08 Potassium Chloride [Klor-Con 10] Med 08/02/17 08:00 Ordered 10 meq PO DAILY@0800 Pravastatin Med 08/01/17 21:00 Ordered 40 mg PO BEDTIME Roflumilast Med 08/02/17 09:00 Ordered 500 mcg PO DAILY Rup Rub Analgesic Cream Med 08/01/17 14:44 Ordered 1 applic TOP BID PRN Sotalol HCl [Sotalol] Med 08/02/17 09:00 Ordered 120 mg PO DAILY Tiotropium [Spiriva HandiHaler] Med 08/02/17 09:00 Ordered 18 mcg INH DAILY Venlafaxine [Effexor XR] Med 08/02/17 09:00 Ordered 150 mg PO DAILY Warfarin [Coumadin] Med 08/03/17 18:00 Ordered 2.5 mg PO MOFR@1800 Warfarin [Coumadin] Med 08/01/17 18:00 Ordered 5 mg PO SUTUWETHSA@1800 cefTRIAXone [Rocephin] Med 08/02/17 14:45 Ordered 1 gm IVPUSH Q24H predniSONE Med 08/02/17 08:00 Ordered 10 mg PO WITHBREAKFAST predniSONE Med 08/01/17 17:00 Ordered 5 mg PO DAILY@1700 Medication Orders Hydrocodone Bitart/Acetaminophen ([place] 325-5 Mg) 1 - 2 tab PO Q6H PRN PRN Reason: Pain Al Hydroxide/Mg Hydroxide (Gi Cocktail) 30 ml PO DAILY PRN PRN Reason: Heartburn Albuterol (Proventil Neb Soln) 2.5 mg NEB QID PRN PRN Reason: Shortness of Breath Albuterol (Ventolin Hfa) gm INH Q4HR PRN PRN Reason: Shortness of Breath Arformoterol Tartrate (Brovana) 15 mcg INH BID MARY ALICE Baclofen (Lioresal) 5 - 10 mg PO TID PRN PRN Reason: Muscle Spasm Budesonide (Pulmicort) 0.5 mg INH BID@0900,1600 MARY ALICE Ceftriaxone Sodium (Rocephin) 1 gm IVPUSH Q24H MARY ALICE Cholecalciferol (Vitamin D3) 1,000 units PO DAILY@0800 [facility] Docusate Sodium (Colace) 100 mg PO BID MARY ALICE Ferrous Sulfate (Ferrous Sulfate) 325 mg PO DAILY@1200 [facility] Levothyroxine Sodium (Synthroid) 88 mcg PO DAILY@0600 [facility] Lisinopril (Prinivil) 5 mg PO DAILY [facility] Metoprolol Tartrate (Lopressor) 12.5 mg PO BID [facility] Multivitamins/Minerals (Ocuvite) each PO DAILY [facility] Non-Formulary Medication (Bumetanide [Bumetanide]) 0.5 mg PO BID@08,14 [facility] Non-Formulary Medication (Dapsone) 100 mg PO DAILY [facility] Non-Formulary Medication (Menthol [Biofreeze]) 1 applic TOP BID PRN PRN Reason: Pain Non-Formulary Medication (Ondansetron) 4 mg PO Q4H PRN PRN Reason: Nausea Non-Formulary Medication (Pravastatin) 40 mg PO BEDTIME [facility] Non-Formulary Medication (Roflumilast) 500 mcg PO DAILY [facility] Non-Formulary Medication (Rup Rub Analgesic Cream) 1 applic TOP BID PRN PRN Reason: Pain Non-Formulary Medication (Sotalol Hcl [Sotalol]) 120 mg PO DAILY [facility] Omeprazole (Omeprazole) 40 mg PO DAILY@2000 [facility] Polyethylene Glycol (Miralax) 17 gm PO DAILY@08 [facility] Potassium Chloride (Klor-Con 10) 10 meq PO DAILY@0800 [facility] Prednisone (Prednisone) 5 mg PO DAILY@1700 [facility] Prednisone (Prednisone) 10 mg PO WITHBREAKFAST [facility] Sodium Chloride (Syrex Flush) 5 ml FLUSH Q8HR PRN PRN Reason: Keep Vein Open Last Admin: 08/01/17 14:37 Dose: 5 ml Tiotropium [place] (Spiriva Handihaler) 18 mcg INH DAILY [facility] Venlafaxine HCl (Effexor Xr) 150 mg PO DAILY [facility] Warfarin Sodium (Coumadin) 2.5 mg PO MOFR@1800 [facility] Warfarin Sodium (Coumadin) 5 mg PO SUTUWETHSA@1800 [facility] Assessment/Plan Comment:: PRIMARY ASSESSMENT/PLAN Right lower extremity cellulitis, immunocompromised due to chronic steroid use and diabetic status. Wound culture pending. WBC 12.5 with left shift. Patient non-toxic in appearance and afebrile. Continue IV rocephin 1 gm daily. Hold Bactrim due to CrCl 30. Will hold off on vancomycin at this time as no known history of MRSA. Continue daily dressing change with bactroban ointment, telfa, and seamus. Referral placed to [facility] for wound care. Family requests patient be referred to [facility] and [facility] upon discharge. Repeat CBC in AM. Xray of right lower extremity pending. High protein, ADA diet. CKD stage 3. GFR 51, creatinine 1.04. Repeat BMP in AM. SECONDARY ASSESSMENT/PLAN: COPD, severe. Continue oxygen at 3 liters per nasal cannula. Continue inhaled medications and daliresp. Chronic diastolic heart failure. ECHO (October 2016) revealed normal left ventricle and wall thickness, normal left systolic function, EF 60%, grade 1 diastolic dysfunction. Iron deficiency anemia. Hgb 9.8. 07/01/17 hemoglobin 10.6. Continue oral iron. History of atrial fibrillation. History of hypokalemia. K 3.7. Continue oral potassium. S/P TAVR. Continue warfarin. INR pending. Hypertension, stable. Continue current medication regimen. Bilateral carotid artery disease. Peripheral vascular disease. Suyapa's granulomatosis with vasculitis. Continue prednisone. Hypothyroidism. Continue levothyroxine. TSH 0.51 (October 2016). TSH in AM. Hyperlipidemia. Continue pravastatin. LDL 157 (2016). Steroid-induced diabetes mellitus, diet controlled. Secondary hyperparathyroidism of renal origin. Depression. Continue effexor. GERD. Continue omeprazole. Constipation. Continue colace and miralax. Osteoporisis. On prolia. History of thoracolumbar vertebra compression fracture. Pseudogout. Long-term use of anticoagulant therapy and systemic steroids. DVT prophylaxis. On warfarin. Overall treatment plan: Continue with daily dressing changes and IV rocephin. Referral placed to PT for wound assessment/intervention. Will continue to monitor for signs of sepsis. Repeat labs in AM.
[2017-08-01] MEDS ORDERED: Pantoprazole 40 MG Vial IVPUSH SCH (15:45)
[2017-08-01] MEDS: predniSONE 5 MG Tab PO SCH (17:05)
[2017-08-01] MEDS ORDERED: Warfarin 5 MG Tab PO SCH (18:00)
[2017-08-01] MEDS ORDERED: Baclofen 10 MG Tab PO SCH ×2 (18:00→21:00)
[2017-08-01] MEDS: Baclofen 10 MG Tab PO SCH (18:18)
[2017-08-01] MEDS: Arformoterol 15 MCG/2 ML Neb Soln INH SCH (20:30)
[2017-08-01] MEDS: Pravastatin 20 MG Tab PO SCH (20:39)
[2017-08-01] MEDS: Metoprolol Tartrate 25 MG Tab PO SCH (20:39)
[2017-08-01] MEDS: Docusate Sodium 100 MG Cap PO SCH (20:39)
[2017-08-01] MEDS: Omeprazole 20 MG Cap.CR PO SCH (20:39)
[2017-08-02] MEDS ORDERED: Levothyroxine 88 MCG Tab PO SCH (08:00)
[2017-08-02] MEDS: Mupirocin Oint 22 GM Tube TOP SCH (08:04)
[2017-08-02] MEDS: Polyethylene Glycol 3350 Powder 17 GM Packet PO SCH (08:04)
[2017-08-02] MEDS: Docusate Sodium 100 MG Cap PO SCH ×2 (08:06→20:35)
[2017-08-02] MEDS: Baclofen 10 MG Tab PO SCH ×2 (08:06→17:46)
[2017-08-02] MEDS: Bumetanide 1 MG Tab PO SCH ×2 (08:08→13:09)
[2017-08-02] MEDS: predniSONE 5 MG Tab PO SCH ×2 (08:08→17:47)
[2017-08-02] MEDS: Cholecalciferol (Vitamin D3) 1,000 Unit Tab PO SCH (08:09)
[2017-08-02] MEDS: Sotalol 80 MG Tab PO SCH (08:09)
[2017-08-02] MEDS: Lisinopril 5 MG Tab PO SCH (08:10)
[2017-08-02] MEDS: Metoprolol Tartrate 25 MG Tab PO SCH ×2 (08:11→20:35)
[2017-08-02] MEDS: Roflumilast 500 MCG Tab PO SCH (08:12)
[2017-08-02] MEDS: Lutein/Minerals/Vitamins A, C & E Tab PO SCH (08:12)
[2017-08-02] MEDS: Venlafaxine 150 MG Cap.ER PO SCH (08:13)
[2017-08-02] MEDS: Arformoterol 15 MCG/2 ML Neb Soln INH SCH ×2 (08:40→20:25)
[2017-08-02] MEDS: Tiotropium Inhaler 18 MCG Inhalation Powder Cap Kit of 5 INH SCH (08:52)
[2017-08-02] MEDS: Budesonide 0.5 MG/2 ML Neb Susp INH SCH ×2 (09:24→13:14)
[2017-08-02] MEDS ORDERED: Sodium Chloride 0.9% 500 ML IV ONE (09:30)
--- NOTE | 2017-08-02 09:38 | PCM.PN ---
- General Info Date of Service: 08/02/17 Subjective Update: Patient states there is tenderness with touching her right leg and walking on it. Otherwise, she denies any complaints today. Her is at the bedside. Functional Status: Reports: Pain Controlled, Tolerating Diet, Ambulating, Urinating - Review of Systems General: Denies: Fever, Chills HEENT: Reports: Glasses. Denies: Headaches Pulmonary: Denies: Shortness of Breath, Cough Cardiovascular: Reports: Dyspnea on Exertion. Denies: Chest Pain, Edema Gastrointestinal: Reports: No Symptoms Genitourinary: Reports: No Symptoms Musculoskeletal: Reports: Leg Pain (right posterior leg pain) Skin: Reports: Other (wound to right posterior leg) Neurological: Denies: Headache Psychiatric: Reports: No Symptoms - Patient Data Vitals - Most Recent: Last Vital Signs Temp 97.5 F 08/02/17 06:28 Pulse 67 08/02/17 08:11 Resp 20 08/02/17 06:28 BP 158/76 H 08/02/17 08:11 Pulse Ox 93 L 08/02/17 06:28 Weight - Most Recent: 115 lb I&O - Last 24 Hours: Intake & Output 08/01/17 08/02/17 08/02/17 22:59 06:59 14:59 Intake Total 550 200 Output Total 100 375 Balance 450 -175 Lab Results Last 24 Hours: Laboratory Results - last 24 hr 08/02/17 08/02/17 08/02/17 Range/Units 07:20 07:20 07:20 WBC 10.4 H (5.0-10.0) 10^3/uL RBC 2.66 L (3.80-5.50) 10^6/uL Hgb 9.3 L (12.0-16.0) g/dL Hct 29.3 L (37.0-47.0) % MCV 110.1 H (82.0-92.0) fL MCH 34.7 H (27.0-31.0) pg MCHC 31.5 L (32.0-36.0) g/dL RDW 19.0 H (11.5-14.5) % Plt Count 183 (150-300) 10^3/uL MPV 9.4 (7.4-10.4) fL Neut % (Auto) 66.2 (50.0-70.0) % Lymph % (Auto) 23.7 (20.0-40.0) % Maury % (Auto) 8.4 H (2.0-8.0) % Eos % (Auto) 0.8 L (1.0-3.0) % Baso % (Auto) 0.9 (0.0-1.0) % Neut # (Auto) 6.8 (2.5-7.0) 10^3/uL Lymph # (Auto) 2.5 (1.0-4.0) 10^3/uL Maury # (Auto) 0.9 H (0.1-0.8) 10^3/uL Eos # (Auto) 0.1 (0.1-0.3) 10^3/uL Baso # (Auto) 0.1 (0.0-0.1) 10^3/uL PT 25.7 H (8.9-11.4) SEC INR 2.6 H (0.9-1.1) Sodium 150 H (136-145) mmol/L Potassium 3.7 (3.3-5.3) mmol/L Chloride 111 (98-115) mmol/L Carbon Dioxide 31.0 (21.0-32.0) mmol/L BUN 25 (6-25) mg/dL Creatinine 1.12 (0.51-1.17) mg/dL Est Cr Clr Drug Dosing 28.78 mL/min Estimated GFR (MDRD) 47 mL/min Glucose 104 (70-110) mg/dL Calcium 9.5 (8.7-10.3) mg/dL TSH, Ultra Sensitive (0.340-4.820) uIU/mL 08/02/17 Range/Units 07:20 WBC (5.0-10.0) 10^3/uL RBC (3.80-5.50) 10^6/uL Hgb (12.0-16.0) g/dL Hct (37.0-47.0) % MCV (82.0-92.0) fL MCH (27.0-31.0) pg MCHC (32.0-36.0) g/dL RDW (11.5-14.5) % Plt Count (150-300) 10^3/uL MPV (7.4-10.4) fL Neut % (Auto) (50.0-70.0) % Lymph % (Auto) (20.0-40.0) % Maury % (Auto) (2.0-8.0) % Eos % (Auto) (1.0-3.0) % Baso % (Auto) (0.0-1.0) % Neut # (Auto) (2.5-7.0) 10^3/uL Lymph # (Auto) (1.0-4.0) 10^3/uL Maury # (Auto) (0.1-0.8) 10^3/uL Eos # (Auto) (0.1-0.3) 10^3/uL Baso # (Auto) (0.0-0.1) 10^3/uL PT (8.9-11.4) SEC INR (0.9-1.1) Sodium (136-145) mmol/L Potassium (3.3-5.3) mmol/L Chloride (98-115) mmol/L Carbon Dioxide (21.0-32.0) mmol/L BUN (6-25) mg/dL Creatinine (0.51-1.17) mg/dL Est Cr Clr Drug Dosing mL/min Estimated GFR (MDRD) mL/min Glucose (70-110) mg/dL Calcium (8.7-10.3) mg/dL TSH, Ultra Sensitive 0.180 L (0.340-4.820) uIU/mL Med Orders - Current: Current Medications Hydrocodone Bitart/Acetaminophen ([place] 325-5 Mg) 1 - 2 tab PO Q6H PRN PRN Reason: Pain Al Hydroxide/Mg Hydroxide (Gi Cocktail) 30 ml PO DAILY PRN PRN Reason: Heartburn Albuterol (Proventil Neb Soln) 2.5 mg NEB QID PRN PRN Reason: Shortness of Breath Albuterol (Ventolin Hfa) 0 gm INH Q4HR PRN PRN Reason: Shortness of Breath Arformoterol Tartrate (Brovana) 15 mcg INH BIDRT [facility] Last Admin: 08/02/17 08:40 Dose: 15 mcg Baclofen (Lioresal) 5 - 10 mg PO TID PRN PRN Reason: Muscle Spasm Baclofen (Lioresal) 5 mg PO BID@0900,1800 [facility] Last Admin: 08/02/17 08:06 Dose: 5 mg Budesonide (Pulmicort) 0.5 mg INH BID@0900,1400 [facility] Last Admin: 08/02/17 09:24 Dose: 0.5 mg Bumetanide (Bumex) 0.5 mg PO BID@08,14 [facility] Last Admin: 08/02/17 08:08 Dose: 0.5 mg Ceftriaxone Sodium (Rocephin) 1 gm IVPUSH Q24H [facility] Cholecalciferol (Vitamin D3) 1,000 units PO DAILY@0800 [facility] Last Admin: 08/02/17 08:09 Dose: 1,000 units Dapsone (Dapsone) 100 mg PO DAILY [facility] Last Admin: 08/02/17 08:10 Dose: 100 mg Docusate Sodium (Colace) 100 mg PO BID [facility] Last Admin: 08/02/17 08:06 Dose: 100 mg Ferrous Sulfate (Ferrous Sulfate) 325 mg PO DAILY@1200 [facility] Sodium Chloride (Normal Saline) 500 mls @ 250 mls/hr IV .BOLUS [facility] Levothyroxine Sodium (Synthroid) 50 mcg PO ACBREAKFAST [facility] Lisinopril (Prinivil) 5 mg PO DAILY [facility] Last Admin: 08/02/17 08:10 Dose: 5 mg Metoprolol Tartrate (Lopressor) 12.5 mg PO BID [facility] Last Admin: 08/02/17 08:11 Dose: 12.5 mg Multivitamins/Minerals (Ocuvite) 1 each PO DAILY [facility] Last Admin: 08/02/17 08:12 Dose: 1 each Mupirocin (Bactroban Oint) 0 gm TOP DAILY [facility] Last Admin: 08/02/17 08:04 Dose: 1 applic Biofreeze Own Med* (*) 0 applic TOP BID PRN PRN Reason: Pain Omeprazole (Omeprazole) 40 mg PO BEDTIME [facility] Last Admin: 08/01/17 20:39 Dose: 40 mg Ondansetron HCl (Zofran Odt) 4 mg PO Q4H PRN PRN Reason: Nausea Polyethylene Glycol (Miralax) 17 gm PO DAILY@08 [facility] Last Admin: 08/02/17 08:04 Dose: 17 gm Potassium Chloride (Klor-Con 10) 10 meq PO DAILY@1200 [facility] Pravastatin Sodium (Pravachol) 40 mg PO BEDTIME [facility] Last Admin: 08/01/17 20:39 Dose: 40 mg Prednisone (Prednisone) 5 mg PO DAILY@1700 [facility] Last Admin: 08/01/17 17:05 Dose: 5 mg Prednisone (Prednisone) 10 mg PO WITHBREAKFAST [facility] Last Admin: 08/02/17 08:08 Dose: 10 mg Roflumilast (Daliresp) 500 mcg PO DAILY [facility] Last Admin: 08/02/17 08:12 Dose: 500 mcg Sodium Chloride (Syrex Flush) 5 ml FLUSH Q8HR PRN PRN Reason: Keep Vein Open Last Admin: 08/01/17 14:37 Dose: 5 ml Sotalol HCl (Betapace) 120 mg PO DAILY [facility] Last Admin: 08/02/17 08:09 Dose: 120 mg Tiotropium [place] (Spiriva Handihaler) 18 mcg INH DAILY [facility] Last Admin: 08/02/17 08:52 Dose: 18 mcg Venlafaxine HCl (Effexor Xr) 150 mg PO DAILY [facility] Last Admin: 08/02/17 08:13 Dose: 150 mg Warfarin Sodium (Coumadin) 2.5 mg PO MOFR@1800 [facility] Warfarin Sodium (Coumadin) 5 mg PO SUTUWETHSA@1800 [facility] Warfarin Sodium (Coumadin) 2.5 mg PO ONETIME ONE Stop: 08/02/17 18:01 Discontinued Medications Baclofen (Lioresal) 5 mg PO BID [facility] Baclofen (Lioresal) 5 mg PO BID [facility] Last Admin: 08/01/17 18:17 Dose: Not Given Ceftriaxone Sodium (Rocephin) 1 gm IVPUSH ONETIME ONE Stop: 08/01/17 13:46 Last Admin: 08/01/17 14:34 Dose: 1 gm Levothyroxine Sodium (Synthroid) 88 mcg PO DAILY@0800 [facility] Last Admin: 08/02/17 08:09 Dose: 88 mcg Mupirocin (Bactroban Oint) 1 gm TOP ONETIME ONE Stop: 08/01/17 13:50 Last Admin: 08/01/17 14:31 Dose: 1 applic Non-Formulary Medication (Rup Rub Analgesic Cream) 1 applic TOP BID PRN PRN Reason: Pain Pantoprazole Sodium (Protonix Iv) 40 mg IVPUSH DAILY [facility] Trimethoprim/Sulfamethoxazole (Septra Ds) 1 tab PO ONETIME ONE Stop: 08/01/17 13:46 Last Admin: 08/01/17 14:31 Dose: 1 tab - Exam Quality Assessment: Supplemental Oxygen (3 liters per nasal cannula, 93%), DVT Prophylaxis (On warfarin). No: Urine Catheter General: Alert, Oriented, Cooperative, No Acute Distress Lungs: Clear to Auscultation, Normal Respiratory Effort Cardiovascular: Regular Rate, Regular Rhythm Extremities: No Pedal Edema Skin: Warm, Dry Wound/Incisions: Other (Right posterior lower leg wound: approximately 8 x 3.5 cm in diameter with edges having black necrotic tissue and center erythematous with yellow slough, mild surrounding erythema, tender. ) Psy/Mental Status: Alert, Normal Affect, Normal Mood - Problem List Review Problem List Initiated/Reviewed/Updated: Yes - My Orders Last 24 Hours: My Active Orders 08/01/17 14:35 Vital Signs [RC] 0700,1500,2300 08/01/17 14:44 Acetaminophen/HYDROcodone [[place] 325-5 MG] 1 - 2 tab PO Q6H PRN Albuterol [Proventil Neb Soln] 2.5 mg NEB QID PRN Albuterol [Ventolin HFA] 0 gm INH Q4HR PRN Baclofen [Lioresal] 5 - 10 mg PO TID PRN GI Cocktail 30 ml PO DAILY PRN Menthol [Biofreeze] 0 applic TOP BID PRN Ondansetron [Zofran ODT] 4 mg PO Q4H PRN 08/01/17 15:45 Consult to Wound Care Services [CONS] Routine 08/01/17 16:31 Dietary Supplements [RC] 1000,1500 08/01/17 16:32 Communication Order [RC] DAILY 08/01/17 17:00 predniSONE 5 mg PO DAILY@1700 08/01/17 18:00 Warfarin [Coumadin] 5 mg PO SUTUWETHSA@1800 08/01/17 18:30 Baclofen [Lioresal] 5 mg PO BID@0900,1800 08/01/17 20:00 Arformoterol [Brovana] 15 mcg INH BIDRT 08/01/17 21:00 Docusate Sodium [Colace] 100 mg PO BID Metoprolol Tartrate [Lopressor] 12.5 mg PO BID Omeprazole 40 mg PO BEDTIME Pravastatin [Pravachol] 40 mg PO BEDTIME 08/01/17 Dinner ADA Diabetic [[place] [employer] Diet] [DIET] High Protein Diet [DIET] 08/02/17 08:00 Bumetanide [Bumex] 0.5 mg PO BID@08,14 Cholecalciferol (Vitamin D3) [Vitamin D3] 1,000 units PO DAILY@0800 Polyethylene Glycol 3350 [MiraLAX] 17 gm PO DAILY@08 predniSONE 10 mg PO WITHBREAKFAST 08/02/17 09:00 Budesonide [Pulmicort] 0.5 mg INH BID@0900,1400 Dapsone 100 mg PO DAILY Lisinopril [Prinivil] 5 mg PO DAILY Lutein/Minerals/Vit A,C & E [Ocuvite] 1 each PO DAILY Mupirocin Oint [Bactroban Oint] 0 gm TOP DAILY Roflumilast [Daliresp] 500 mcg PO DAILY Sotalol [Betapace] 120 mg PO DAILY Tiotropium [Spiriva HandiHaler] 18 mcg INH DAILY Venlafaxine [Effexor XR] 150 mg PO DAILY 08/02/17 09:17 Communication Order [RC] Q12HR 08/02/17 09:21 INR,PT,PROTHROMBIN TIME [COAG] Routine 08/02/17 09:27 Encourage Fluids [Oral Fluid Challenge] [RC] ASDIRECTED 08/02/17 09:30 Sodium Chloride 0.9% [Normal Saline] 500 ml IV .BOLUS 08/02/17 12:00 Ferrous Sulfate 325 mg PO DAILY@1200 Potassium Chloride [Klor-Con 10] 10 meq PO DAILY@1200 08/02/17 15:00 cefTRIAXone [Rocephin] 1 gm IVPUSH Q24H 08/02/17 18:00 Warfarin [Coumadin] 2.5 mg PO ONETIME ONE 08/03/17 05:11 BMP [BASIC METABOLIC PANEL,BMP] [CHEM] AM CBC WITH AUTO DIFF [HEME] AM 08/03/17 07:30 Levothyroxine [Synthroid] 50 mcg PO ACBREAKFAST 08/03/17 18:00 Warfarin [Coumadin] 2.5 mg PO MOFR@1800 - Plan Plan:: HPI: This is an 82 year old female who presented to the ED with concerns of a right lower leg infection. On 07/21/17, the patient reports that she suffered a skin tear to the back of her right calf when her was moving her legs. She had a nurse at the assisted living facility look at it and steri-strips were applied. The patient presented to the clinic on 07/27/17 due to increased pain and swelling. She was seen and instructed to continue the dressing and that it needed time to heal. The daughter came to visit today and noticed a foul odor coming from the leg. Denies fever, chills. The patient reports the leg is quite painful to walk on. ED workup included labs and wound culture. WBC 12.5 with left shift. She was given a one time dose of IV rocephin and po Bactrim. She was admitted to inpatient status for continued IV antibiotics and probable debridement. PRIMARY ASSESSMENT/PLAN: Right lower extremity wound with cellulitis, immunocompromised due to chronic steroid use and diabetic status. Wound culture pending. WBC down to 10.4 with no left shift. Xray of tibia and fibula notes soft tissue swelling, no acute osseous abnormality, no evidence of osteomyelitis. Patient non-toxic in appearance and afebrile. Continue IV rocephin 1 gm daily. Change dressing to wet -to-dry with 1 tbsp white vinegar in 2 cups warm water BID. Continue high protein diet. Referral has been placed to employee relations specialist and will see patient tomorrow. CBC in AM. CKD stage 3. GFR 47, creatinine up to 1.12. NS 500 mL bolus x 1 now. Encouraged patient to push fluids. BMP in AM. Hypothyroidism. TSH 0.18. Decrease levothyroxine to 50 mcg po daily. S/P TAVR. INR 3.6 yesterday, warfarin held. INR 2.6 today. Will give warfarin 2.5 mg po today and repeat INR in AM. SECONDARY ASSESSMENT/PLAN: COPD, severe, stable. Continue oxygen at 3 liters per nasal cannula. Continue inhaled medications and daliresp. Chronic diastolic heart failure, stable. Weight unchanged. ECHO (October 2016) revealed normal left ventricle and wall thickness, normal left systolic function , EF 60%, grade 1 diastolic dysfunction. Iron deficiency anemia. Hgb 9.3. 07/01/17 hemoglobin 10.6. Continue oral iron. History of atrial fibrillation. History of hypokalemia. K 3.7. Continue oral potassium. Hypertension, stable. Continue current medication regimen. Bilateral carotid artery disease. Peripheral vascular disease. Suyapa's granulomatosis with vasculitis. Continue prednisone. Hyperlipidemia. Continue pravastatin. LDL 157 (2016). Steroid-induced diabetes mellitus, diet controlled. Glucose 104. Secondary hyperparathyroidism of renal origin. Depression. Continue effexor. GERD. Continue omeprazole. Constipation. Continue colace and miralax. Osteoporisis. On prolia. History of thoracolumbar vertebra compression fracture. Pseudogout. Long-term use of anticoagulant therapy and systemic steroids. DVT prophylaxis. On warfarin. Overall treatment plan: Change dressings to wet-to-dry dressings BID. Continue IV rocephin. Patient needs debridement of wound so this will likely be performed tomorrow by internal medicine specialist. Patient's family wishes for her to be referred to the [facility] and to [facility] on discharge. Social Service consult placed to start discharge planning. She will most likely need at least 1-2 more days as inpatient.
[2017-08-02] MEDS: Potassium Chloride 10 MEQ Tab.ER PO SCH (13:08)
[2017-08-02] MEDS: Ferrous Sulfate 325 MG Tab PO SCH (13:09)
[2017-08-02] MEDS: cefTRIAXone 1 GM Vial IVPUSH SCH (15:16)
[2017-08-02] MEDS ORDERED: Warfarin 2.5 MG Tab PO ONE (18:00)
[2017-08-02] MEDS: Omeprazole 20 MG Cap.CR PO SCH (20:35)
[2017-08-02] MEDS: Pravastatin 20 MG Tab PO SCH (20:35)
[2017-08-03] MEDS: Arformoterol 15 MCG/2 ML Neb Soln INH SCH ×2 (07:10→20:25)
[2017-08-03] MEDS: Lutein/Minerals/Vitamins A, C & E Tab PO SCH (08:17)
[2017-08-03] MEDS: Sotalol 80 MG Tab PO SCH (08:17)
[2017-08-03] MEDS: Docusate Sodium 100 MG Cap PO SCH ×2 (08:17→20:58)
[2017-08-03] MEDS: Metoprolol Tartrate 25 MG Tab PO SCH ×2 (08:18→21:00)
[2017-08-03] MEDS: Cholecalciferol (Vitamin D3) 1,000 Unit Tab PO SCH (08:18)
[2017-08-03] MEDS: Lisinopril 5 MG Tab PO SCH (08:18)
[2017-08-03] MEDS: Bumetanide 1 MG Tab PO SCH (08:18)
[2017-08-03] MEDS: Polyethylene Glycol 3350 Powder 17 GM Packet PO SCH (08:18)
[2017-08-03] MEDS: predniSONE 5 MG Tab PO SCH ×2 (08:18→16:41)
[2017-08-03] MEDS: Venlafaxine 150 MG Cap.ER PO SCH (08:19)
[2017-08-03] MEDS: Roflumilast 500 MCG Tab PO SCH (08:19)
[2017-08-03] MEDS: Baclofen 10 MG Tab PO SCH ×2 (08:19→18:53)
[2017-08-03] MEDS: Mupirocin Oint 22 GM Tube TOP SCH ×2 (08:20→11:51)
[2017-08-03] MEDS: Levothyroxine 50 MCG Tab PO SCH (08:24)
[2017-08-03] MEDS: Budesonide 0.5 MG/2 ML Neb Susp INH SCH ×2 (08:55→14:16)
--- NOTE | 2017-08-03 09:02 | PCM.PN ---
- General Info Date of Service: 08/03/17 Subjective Update: Patient reports she is doing well. There is pain with ambulation to the right leg. She is concerned about the possibility of debridement as she states she can tolerate quite a bit of pain but feels this will be painful. Functional Status: Reports: Pain Controlled, Tolerating Diet, Ambulating, Urinating - Review of Systems General: Denies: Fever, Chills Pulmonary: Denies: Shortness of Breath Cardiovascular: Reports: Dyspnea on Exertion. Denies: Chest Pain, Edema Gastrointestinal: Reports: No Symptoms Genitourinary: Reports: No Symptoms Musculoskeletal: Reports: Leg Pain (right posterior leg pain) Skin: Reports: Other (right posterior leg wound) Psychiatric: Reports: Anxiety (regarding wound consult) - Patient Data Vitals - Most Recent: Last Vital Signs Temp 98.0 F 08/03/17 06:38 Pulse 64 08/03/17 08:18 Resp 18 08/03/17 06:38 BP 132/60 08/03/17 08:18 Pulse Ox 95 08/03/17 07:10 Weight - Most Recent: 114 lb 4.8 oz I&O - Last 24 Hours: Intake & Output 08/02/17 08/03/17 08/03/17 22:59 06:59 14:59 Intake Total 670 50 Output Total 300 Balance 670 -250 Lab Results Last 24 Hours: Laboratory Results - last 24 hr 08/02/17 08/03/17 08/03/17 Range/Units 07:20 07:00 07:15 WBC 10.9 H (5.0-10.0) 10^3/uL RBC 2.67 L (3.80-5.50) 10^6/uL Hgb 9.1 L (12.0-16.0) g/dL Hct 29.6 L (37.0-47.0) % MCV 110.7 H (82.0-92.0) fL MCH 34.0 H (27.0-31.0) pg MCHC 30.7 L (32.0-36.0) g/dL RDW 18.8 H (11.5-14.5) % Plt Count 179 (150-300) 10^3/uL MPV 8.8 (7.4-10.4) fL Neut % (Auto) 69.2 (50.0-70.0) % Lymph % (Auto) 21.6 (20.0-40.0) % [place] % (Auto) 7.6 (2.0-8.0) % Eos % (Auto) 0.8 L (1.0-3.0) % Baso % (Auto) 0.8 (0.0-1.0) % Neut # (Auto) 7.5 H (2.5-7.0) 10^3/uL Lymph # (Auto) 2.4 (1.0-4.0) 10^3/uL [place] # (Auto) 0.8 (0.1-0.8) 10^3/uL Eos # (Auto) 0.1 (0.1-0.3) 10^3/uL Baso # (Auto) 0.1 (0.0-0.1) 10^3/uL PT (8.9-11.4) SEC INR (0.9-1.1) Sodium 148 H (136-145) mmol/L Potassium 3.9 (3.3-5.3) mmol/L Chloride 110 (98-115) mmol/L Carbon Dioxide 29.0 (21.0-32.0) mmol/L BUN 30 H (6-25) mg/dL Creatinine 1.11 (0.51-1.17) mg/dL Est Cr Clr Drug Dosing 29.04 mL/min Estimated GFR (MDRD) 47 mL/min Glucose 121 H (70-110) mg/dL Calcium 9.3 (8.7-10.3) mg/dL TSH, Ultra Sensitive 0.180 L (0.340-4.820) uIU/mL 08/03/17 Range/Units 07:15 WBC (5.0-10.0) 10^3/uL RBC (3.80-5.50) 10^6/uL Hgb (12.0-16.0) g/dL Hct (37.0-47.0) % MCV (82.0-92.0) fL MCH (27.0-31.0) pg MCHC (32.0-36.0) g/dL RDW (11.5-14.5) % Plt Count (150-300) 10^3/uL MPV (7.4-10.4) fL Neut % (Auto) (50.0-70.0) % Lymph % (Auto) (20.0-40.0) % [place] % (Auto) (2.0-8.0) % Eos % (Auto) (1.0-3.0) % Baso % (Auto) (0.0-1.0) % Neut # (Auto) (2.5-7.0) 10^3/uL Lymph # (Auto) (1.0-4.0) 10^3/uL [place] # (Auto) (0.1-0.8) 10^3/uL Eos # (Auto) (0.1-0.3) 10^3/uL Baso # (Auto) (0.0-0.1) 10^3/uL PT 14.4 H (8.9-11.4) SEC INR 1.4 H (0.9-1.1) Sodium (136-145) mmol/L Potassium (3.3-5.3) mmol/L Chloride (98-115) mmol/L Carbon Dioxide (21.0-32.0) mmol/L BUN (6-25) mg/dL Creatinine (0.51-1.17) mg/dL Est Cr Clr Drug Dosing mL/min Estimated GFR (MDRD) mL/min Glucose (70-110) mg/dL Calcium (8.7-10.3) mg/dL TSH, Ultra Sensitive (0.340-4.820) uIU/mL Med Orders - Current: Current Medications Hydrocodone Bitart/Acetaminophen ([place] 325-5 Mg) 1 - 2 tab PO Q6H PRN PRN Reason: Pain Al Hydroxide/Mg Hydroxide (Gi Cocktail) 30 ml PO DAILY PRN PRN Reason: Heartburn Albuterol (Proventil Neb Soln) 2.5 mg NEB QID PRN PRN Reason: Shortness of Breath Albuterol (Ventolin Hfa) 0 gm INH Q4HR PRN PRN Reason: Shortness of Breath Arformoterol Tartrate (Brovana) 15 mcg INH BIDRT [facility] Last Admin: 08/03/17 07:10 Dose: 15 mcg Baclofen (Lioresal) 5 - 10 mg PO TID PRN PRN Reason: Muscle Spasm Baclofen (Lioresal) 5 mg PO BID@0900,1800 [facility] Last Admin: 08/03/17 08:19 Dose: 5 mg Budesonide (Pulmicort) 0.5 mg INH BID@0900,1400 [facility] Last Admin: 08/02/17 13:14 Dose: 0.5 mg Bumetanide (Bumex) 0.5 mg PO BID@08,14 [facility] Last Admin: 08/03/17 08:18 Dose: 0.5 mg Ceftriaxone Sodium (Rocephin) 1 gm IVPUSH Q24H [facility] Last Admin: 08/02/17 15:16 Dose: 1 gm Cholecalciferol (Vitamin D3) 1,000 units PO DAILY@0800 [facility] Last Admin: 08/03/17 08:18 Dose: 1,000 units Dapsone (Dapsone) 100 mg PO DAILY [facility] Last Admin: 08/03/17 08:17 Dose: 100 mg Docusate Sodium (Colace) 100 mg PO BID [facility] Last Admin: 08/03/17 08:17 Dose: 100 mg Ferrous Sulfate (Ferrous Sulfate) 325 mg PO DAILY@1200 [facility] Last Admin: 08/02/17 13:09 Dose: 325 mg Sodium Chloride (Sodium Chloride 0.45%) 750 mls @ 375 mls/hr IV ONETIME ONE Stop: 08/03/17 10:59 Levothyroxine Sodium (Synthroid) 50 mcg PO ACBREAKFAST [facility] Last Admin: 08/03/17 08:24 Dose: 50 mcg Lisinopril (Prinivil) 5 mg PO DAILY [facility] Last Admin: 08/03/17 08:18 Dose: 5 mg Metoprolol Tartrate (Lopressor) 12.5 mg PO BID [facility] Last Admin: 08/03/17 08:18 Dose: 12.5 mg Multivitamins/Minerals (Ocuvite) 1 each PO DAILY [facility] Last Admin: 08/03/17 08:17 Dose: 1 each Mupirocin (Bactroban Oint) 0 gm TOP DAILY [facility] Last Admin: 08/03/17 08:20 Dose: 1 applic Biofreeze Own Med* (*) 0 applic TOP BID PRN PRN Reason: Pain Omeprazole (Omeprazole) 40 mg PO BEDTIME [facility] Last Admin: 08/02/17 20:35 Dose: 40 mg Ondansetron HCl (Zofran Odt) 4 mg PO Q4H PRN PRN Reason: Nausea Polyethylene Glycol (Miralax) 17 gm PO DAILY@08 [facility] Last Admin: 08/03/17 08:18 Dose: 17 gm Potassium Chloride (Klor-Con 10) 10 meq PO DAILY@1200 [facility] Last Admin: 08/02/17 13:08 Dose: 10 meq Pravastatin Sodium (Pravachol) 40 mg PO BEDTIME [facility] Last Admin: 08/02/17 20:35 Dose: 40 mg Prednisone (Prednisone) 5 mg PO DAILY@1700 [facility] Last Admin: 08/02/17 17:47 Dose: 5 mg Prednisone (Prednisone) 10 mg PO WITHBREAKFAST [facility] Last Admin: 08/03/17 08:18 Dose: 10 mg Roflumilast (Daliresp) 500 mcg PO DAILY [facility] Last Admin: 08/03/17 08:19 Dose: 500 mcg Sodium Chloride (Syrex Flush) 5 ml FLUSH Q8HR PRN PRN Reason: Keep Vein Open Last Admin: 08/01/17 14:37 Dose: 5 ml Sotalol HCl (Betapace) 120 mg PO DAILY [facility] Last Admin: 08/03/17 08:17 Dose: 120 mg Tiotropium [place] (Spiriva Handihaler) 18 mcg INH DAILY [facility] Last Admin: 08/02/17 08:52 Dose: 18 mcg Venlafaxine HCl (Effexor Xr) 150 mg PO DAILY [facility] Last Admin: 08/03/17 08:19 Dose: 150 mg Warfarin Sodium (Coumadin) 2.5 mg PO MOFR@1800 [facility] Warfarin Sodium (Coumadin) 5 mg PO SUTUWETHSA@1800 [facility] Warfarin Sodium (Coumadin) 5 mg PO ONETIME ONE Stop: 08/03/17 18:01 Discontinued Medications Baclofen (Lioresal) 5 mg PO BID [facility] Baclofen (Lioresal) 5 mg PO BID [facility] Last Admin: 08/01/17 18:17 Dose: Not Given Ceftriaxone Sodium (Rocephin) 1 gm IVPUSH ONETIME ONE Stop: 08/01/17 13:46 Last Admin: 08/01/17 14:34 Dose: 1 gm Sodium Chloride (Normal Saline) 500 mls @ 250 mls/hr IV ONETIME ONE Stop: 08/02/17 11:29 Last Admin: 08/02/17 10:21 Dose: 250 mls/hr Levothyroxine Sodium (Synthroid) 88 mcg PO DAILY@0800 [facility] Last Admin: 08/02/17 08:09 Dose: 88 mcg Mupirocin (Bactroban Oint) 1 gm TOP ONETIME ONE Stop: 08/01/17 13:50 Last Admin: 08/01/17 14:31 Dose: 1 applic Non-Formulary Medication (Rup Rub Analgesic Cream) 1 applic TOP BID PRN PRN Reason: Pain Pantoprazole Sodium (Protonix Iv) 40 mg IVPUSH DAILY [facility] Trimethoprim/Sulfamethoxazole (Septra Ds) 1 tab PO ONETIME ONE Stop: 08/01/17 13:46 Last Admin: 08/01/17 14:31 Dose: 1 tab Warfarin Sodium (Coumadin) 2.5 mg PO ONETIME ONE Stop: 08/02/17 18:01 Last Admin: 08/02/17 17:46 Dose: 2.5 mg - Exam Quality Assessment: Supplemental Oxygen (3 liters per nasal cannula, patient's baseline, oxygen saturation 95%), DVT Prophylaxis (On warfarin) General: Alert, Oriented, Cooperative, No Acute Distress Lungs: Clear to Auscultation, Normal Respiratory Effort Cardiovascular: Regular Rate, Regular Rhythm, Murmurs Extremities: No Pedal Edema Skin: Warm, Dry Wound/Incisions: Dressing Dry and Intact, Erythema Improving, Other (right posterior leg wound) Neurological: Normal Speech Psy/Mental Status: Alert, Normal Affect, Normal Mood. No: Anxious - Problem List Review Problem List Initiated/Reviewed/Updated: Yes - My Orders Last 24 Hours: My Active Orders 08/02/17 08:00 Bumetanide [Bumex] 0.5 mg PO BID@08,14 Cholecalciferol (Vitamin D3) [Vitamin D3] 1,000 units PO DAILY@0800 Polyethylene Glycol 3350 [MiraLAX] 17 gm PO DAILY@08 predniSONE 10 mg PO WITHBREAKFAST 08/02/17 09:00 Budesonide [Pulmicort] 0.5 mg INH BID@0900,1400 Dapsone 100 mg PO DAILY Lisinopril [Prinivil] 5 mg PO DAILY Lutein/Minerals/Vit A,C & E [Ocuvite] 1 each PO DAILY Mupirocin Oint [Bactroban Oint] 0 gm TOP DAILY Roflumilast [Daliresp] 500 mcg PO DAILY Sotalol [Betapace] 120 mg PO DAILY Tiotropium [Spiriva HandiHaler] 18 mcg INH DAILY Venlafaxine [Effexor XR] 150 mg PO DAILY 08/02/17 09:17 Communication Order [RC] Q12HR 08/02/17 09:27 Encourage Fluids [Oral Fluid Challenge] [RC] ASDIRECTED 08/02/17 09:39 Consult to Electronic Induction Hardener [CONS] Routine 08/02/17 12:00 Ferrous Sulfate 325 mg PO DAILY@1200 Potassium Chloride [Klor-Con 10] 10 meq PO DAILY@1200 08/02/17 15:00 cefTRIAXone [Rocephin] 1 gm IVPUSH Q24H 08/03/17 07:30 Levothyroxine [Synthroid] 50 mcg PO ACBREAKFAST 08/03/17 09:00 Sodium Chloride 0.45% 750 ml IV ONETIME 08/03/17 18:00 Warfarin [Coumadin] 2.5 mg PO MOFR@1800 Warfarin [Coumadin] 5 mg PO ONETIME ONE 08/04/17 05:00 INR,PT,PROTHROMBIN TIME [COAG] Routine - Plan Plan:: HPI: This is an 82 year old female who presented to the ED with concerns of a right lower leg infection. On 07/21/17, the patient reports that she suffered a skin tear to the back of her right calf when her was moving her legs. She had a nurse at the assisted living facility look at it and steri-strips were applied. The patient presented to the clinic on 07/27/17 due to increased pain and swelling. She was seen and instructed to continue the dressing and that it needed time to heal. The daughter came to visit today and noticed a foul odor coming from the leg. Denies fever, chills. The patient reports the leg is quite painful to walk on. ED workup included labs and wound culture. WBC 12.5 with left shift. She was given a one time dose of IV rocephin and po Bactrim. She was admitted to inpatient status for continued IV antibiotics and probable debridement. PRIMARY ASSESSMENT/PLAN: Right lower extremity wound with cellulitis, immunocompromised due to chronic steroid use and diabetic status. Wound culture pending. WBC 10.9 without a left shift. Xray negative for evidence of osteomyelitis. Patient non-toxic in appearance and afebrile. Contine IV rocephin. Continue high protein diet. Taylor , PT/child specialist, to see patient today for recommendations regarding debridement and type of dressing. If debridement needed, will pre-medicate patient with pain medication. CBC in AM. CKD stage 3. GFR 47, creatinine 1.11. Gave NS 500 mL bolus yesterday, however not much improvement. Na 148. 1/2 NS bolus of 750 mL today. BMP in AM. Will hold afternoon and tomorrow morning's dose of bumex. Weight unchanged. Encouraged patient to push fluids. Hypothyroidism. TSH 0.18. Decreased levothyroxine to 50 mcg po daily. Will need a TSH recheck in 8 weeks. S/P TAVR. INR 1.4. Give warfarin 5 mg po today. Recheck INR in AM. SECONDARY ASSESSMENT/PLAN: COPD, severe, stable. Continue oxygen at 3 liters per nasal cannula. Continue inhaled medications and daliresp. Chronic diastolic heart failure, stable. Weight unchanged. ECHO (October 2016) revealed normal left ventricle and wall thickness, normal left systolic function , EF 60%, grade 1 diastolic dysfunction. Iron deficiency anemia. Hgb 9.1. 07/01/17 hemoglobin 10.6. Continue oral iron. History of atrial fibrillation. History of hypokalemia. K 3.9. Continue oral potassium. Hypertension, stable. Continue current medication regimen. Bilateral carotid artery disease. Peripheral vascular disease. Suyapa's granulomatosis with vasculitis. Continue prednisone. Hyperlipidemia. Continue pravastatin. LDL 157 (2016). Steroid-induced diabetes mellitus, diet controlled. Glucose this morning 121. BMP in AM. Secondary hyperparathyroidism of renal origin. Depression. Continue effexor. GERD. Continue omeprazole. Constipation. Continue colace and miralax. Osteoporisis. On prolia. History of thoracolumbar vertebra compression fracture. Pseudogout. Long-term use of anticoagulant therapy and systemic steroids. DVT prophylaxis. On warfarin. Overall treatment plan: Will await recommendations from wound consultation. Continue IV rocephin and high protein diet. Social Service consult placed for discharge planning as patient and her family would like [facility] on discharge. Daughter also requested referral to [facility] on discharge. Patient will possibly be able to be discharged tomorrow pending wound consultation.
[2017-08-03] MEDS: Tiotropium Inhaler 18 MCG Inhalation Powder Cap Kit of 5 INH SCH (09:07)
[2017-08-03] MEDS ORDERED: Morphine 2 MG/ML Syringe IVPUSH ONE (11:01)
[2017-08-03] MEDS: Potassium Chloride 10 MEQ Tab.ER PO SCH (11:48)
[2017-08-03] MEDS: Ferrous Sulfate 325 MG Tab PO SCH (11:48)
[2017-08-03] MEDS: cefTRIAXone 1 GM Vial IVPUSH SCH (14:16)
[2017-08-03] MEDS: Sulfamethoxazole/Trimethoprim 800-160 MG Tab PO SCH ×2 (15:32→21:02)
[2017-08-03] MEDS: Acetaminophen/HYDROcodone 325-5 MG Tab PO PRN (15:37)
[2017-08-03] MEDS ORDERED: Warfarin 2.5 MG Tab PO SCH (18:00)
[2017-08-03] MEDS ORDERED: Warfarin 5 MG Tab PO ONE (18:00)
[2017-08-03] MEDS: Sodium Chloride 0.9% 5 ML Syringe FLUSH PRN (20:41)
[2017-08-03] MEDS: Pravastatin 20 MG Tab PO SCH (20:59)
[2017-08-03] MEDS: Omeprazole 20 MG Cap.CR PO SCH (20:59)
[2017-08-04] MEDS: Acetaminophen/HYDROcodone 325-5 MG Tab PO PRN (05:10)
[2017-08-04 06:54] VITALS: BP 155/70
[2017-08-04] MEDS: Arformoterol 15 MCG/2 ML Neb Soln INH SCH (07:02)
[2017-08-04] MEDS: Levothyroxine 50 MCG Tab PO SCH (07:44)
[2017-08-04] MEDS: Polyethylene Glycol 3350 Powder 17 GM Packet PO SCH (08:16)
[2017-08-04] MEDS: Cholecalciferol (Vitamin D3) 1,000 Unit Tab PO SCH (08:18)
[2017-08-04] MEDS: predniSONE 5 MG Tab PO SCH (08:18)
[2017-08-04] MEDS: Sotalol 80 MG Tab PO SCH (08:23)
[2017-08-04] MEDS: Docusate Sodium 100 MG Cap PO SCH (08:25)
[2017-08-04] MEDS: Roflumilast 500 MCG Tab PO SCH (08:25)
[2017-08-04] MEDS: Baclofen 10 MG Tab PO SCH (08:26)
[2017-08-04] MEDS: Venlafaxine 150 MG Cap.ER PO SCH (08:26)
[2017-08-04] MEDS: Metoprolol Tartrate 25 MG Tab PO SCH (08:27)
[2017-08-04] MEDS: Lutein/Minerals/Vitamins A, C & E Tab PO SCH (08:28)
[2017-08-04] MEDS: Lisinopril 5 MG Tab PO SCH (08:29)
[2017-08-04] MEDS: Sulfamethoxazole/Trimethoprim 800-160 MG Tab PO SCH (08:30)
[2017-08-04] MEDS: Mupirocin Oint 22 GM Tube TOP SCH (08:37)
[2017-08-04] MEDS: Budesonide 0.5 MG/2 ML Neb Susp INH SCH (09:04)
[2017-08-04] MEDS: Tiotropium Inhaler 18 MCG Inhalation Powder Cap Kit of 5 INH SCH (09:17)
--- NOTE | 2017-08-09 13:16 | PCM.DCSUM1 ---
Discharge Summary - Discharge Data Discharge Date: 08/04/17 Discharge Disposition: Home, W Home Health Agency 06 Condition: Good - Patient Summary/Data Complications: mild dehydration, corrected. Consults: Consultations 08/01/17 15:45 Consult to Wound Care Services [CONS] Routine 08/02/17 09:39 Consult to Hold Worker [CONS] Routine Hospital Course: Hospital couse went as expected. She received ABX therapy definitively, needed fluids for dehydration and correction on thyroid medication due to low levels. He would was debrided by Physical therapist and special dressing applied and will receive OP wound care at [facility]. - Patient Instructions Activity: As Tolerated Driving: Do Not Drive Showering/Bathing: No Tub Bathing/Swimming Wound/Incision Care: Keep Operative Site/Wound Site Clean and Dry Notify Provider of: Fever, Increased Pain, Swelling and Redness, Nausea and/or Vomiting - Discharge Plan Prescriptions/Med Rec: Levothyroxine [Synthroid] 50 mcg PO ACBREAKFAST #60 tablet Sulfamethoxazole/Trimethoprim [IJD: Sulfamethoxazole/Trimethoprim DS] 1 tab PO BID #28 tablet Home Medications: Home Meds Cholecalciferol (Vitamin D3) [Vitamin D3] 1,000 unit PO DAILY@0800 09/27/13 [ History] Pravastatin [Pravachol] 40 mg PO BEDTIME 06/24/14 [History] Albuterol Sulfate [Albuterol Sulfate HFA] 2 puff INH Q4HR PRN 08/28/14 [History] Omeprazole [Prilosec] 40 mg PO DAILY@199901/20/15 [History] Ferrous Sulfate 325 mg PO DAILY@1200 04/12/15 [History] Venlafaxine [Effexor XR] 150 mg PO DAILY 04/12/15 [History] Docusate Sodium [Colace] 100 mg PO BID 06/27/15 [History] Albuterol [Proventil Neb Soln] 2.5 mg NEB QID PRN 02/25/16 [History] Potassium Chloride [K-Tab ER] 10 meq PO DAILY@0800 02/25/16 [History] Warfarin [Coumadin] 5 mg PO SUTUWETHSA@1800 05/11/16 [History] Dapsone 100 mg PO DAILY 06/19/16 [History] Lisinopril [Prinivil] 5 mg PO DAILY 06/19/16 [History] Acetaminophen/HYDROcodone [[place] 325-5 MG] 1 - 2 tab PO Q6H PRN 07/15/16 [ History] predniSONE [Prednisone] 5 mg PO DAILY@1700 07/17/16 [History] predniSONE [Prednisone] 10 mg PO WITHBREAKFAST 07/17/16 [History] Metoprolol Tartrate 12.5 mg PO BID 11/08/16 [History] Sotalol HCl [Sotalol] 120 mg PO DAILY #30 tablet 11/12/16 [Rx] Clindamycin HCl 600 mg PO ASDIRECTED PRN 01/16/17 [History] Ondansetron [Zofran] 4 mg PO Q4H PRN 01/16/17 [History] Warfarin [Coumadin] 2.5 mg PO MOFR@1800 01/16/17 [History] Roflumilast [Daliresp] 500 mcg PO DAILY #30 tablet 01/20/17 [Rx] Budesonide [Pulmicort] 0.5 mg INH BID@0900,1600 02/03/17 [History] Rup Rub Analgesic Cream 1 applic TOP BID PRN 02/03/17 [History] Tiotropium [Spiriva HandiHaler] 18 mcg INH DAILY 02/03/17 [History] Bumetanide 0.5 mg PO BID@08,14 03/15/17 [History] GI Cocktail 30 ml PO DAILY PRN #1 bottle 03/25/17 [Rx] Baclofen 5 - 10 mg PO TID PRN 05/21/17 [History] Menthol [Biofreeze] 1 applic TOP BID PRN 05/21/17 [History] Polyethylene Glycol 3350 [MiraLAX] 17 gm PO DAILY@08 05/21/17 [History] Arformoterol [Brovana] 15 mcg INH BID 08/01/17 [History] Cyanocobalamin (Vitamin B-12) [Cyanocobalamin Injection] 1,000 mcg SQ TU [History] Lutein/Minerals/Vit A,C & E [I-Silvina] 1 tab PO DAILY 08/01/17 [History] Levothyroxine [Synthroid] 50 mcg PO ACBREAKFAST #60 tablet 08/04/17 [Rx] Sulfamethoxazole/Trimethoprim [IJD: Sulfamethoxazole/Trimethoprim DS] 1 tab PO BID #28 tablet 08/04/17 [Rx] Referrals: Solomon Strong PA-C [[facility]] - (in [place] in about 1 week. ) - Discharge Summary/Plan Comment DC Time >30 min.: No Discharge Summary/Plan Comment: Dispostion: Patient will be discharged from hospital in good condition. Final Dx: Cellulitis: RLE, Staph origin - Patient Data Vitals - Most Recent: Last Vital Signs Temp 98.6 F 08/04/17 06:54 Pulse 60 08/04/17 09:17 Resp 20 08/04/17 06:54 BP 155/70 H 08/04/17 08:29 Pulse Ox 93 L 08/04/17 09:17 Weight - Most Recent: 117 lb 2 oz Med Orders - Current: Current Medications Discontinued Medications Hydrocodone Bitart/Acetaminophen ([place] 325-5 Mg) 1 - 2 tab PO Q6H PRN PRN Reason: Pain Last Admin: 08/04/17 05:10 Dose: 1 tab Al Hydroxide/Mg Hydroxide (Gi Cocktail) 30 ml PO DAILY PRN PRN Reason: Heartburn Albuterol (Proventil Neb Soln) 2.5 mg NEB QID PRN PRN Reason: Shortness of Breath Albuterol (Ventolin Hfa) 0 gm INH Q4HR PRN PRN Reason: Shortness of Breath Arformoterol Tartrate (Brovana) 15 mcg INH BIDRT [facility] Last Admin: 08/04/17 07:02 Dose: 15 mcg Baclofen (Lioresal) 5 - 10 mg PO TID PRN PRN Reason: Muscle Spasm Baclofen (Lioresal) 5 mg PO BID MARY ALICE Baclofen (Lioresal) 5 mg PO BID [facility] Last Admin: 08/01/17 18:17 Dose: Not Given Baclofen (Lioresal) 5 mg PO BID@0900,1800 [facility] Last Admin: 08/04/17 08:26 Dose: 5 mg Budesonide (Pulmicort) 0.5 mg INH BID@0900,1400 [facility] Last Admin: 08/04/17 09:04 Dose: 0.5 mg Bumetanide (Bumex) 0.5 mg PO BID@08,14 [facility] Last Admin: 08/03/17 08:18 Dose: 0.5 mg Ceftriaxone Sodium (Rocephin) 1 gm IVPUSH ONETIME ONE Stop: 08/01/17 13:46 Last Admin: 08/01/17 14:34 Dose: 1 gm Ceftriaxone Sodium (Rocephin) 1 gm IVPUSH Q24H [facility] Last Admin: 08/03/17 14:16 Dose: 1 gm Cholecalciferol (Vitamin D3) 1,000 units PO DAILY@0800 [facility] Last Admin: 08/04/17 08:18 Dose: 1,000 units Dapsone (Dapsone) 100 mg PO DAILY [facility] Last Admin: 08/04/17 08:25 Dose: 100 mg Docusate Sodium (Colace) 100 mg PO BID [facility] Last Admin: 08/04/17 08:25 Dose: 100 mg Ferrous Sulfate (Ferrous Sulfate) 325 mg PO DAILY@1200 [facility] Last Admin: 08/03/17 11:48 Dose: 325 mg Sodium Chloride (Normal Saline) 500 mls @ 250 mls/hr IV ONETIME ONE Stop: 08/02/17 11:29 Last Admin: 08/02/17 10:21 Dose: 250 mls/hr Sodium Chloride (Sodium Chloride 0.45%) 750 mls @ 375 mls/hr IV ONETIME ONE Stop: 08/03/17 10:59 Last Admin: 08/03/17 11:13 Dose: 375 mls/hr Levothyroxine Sodium (Synthroid) 88 mcg PO DAILY@0800 [facility] Last Admin: 08/02/17 08:09 Dose: 88 mcg Levothyroxine Sodium (Synthroid) 50 mcg PO ACBREAKFAST [facility] Last Admin: 08/04/17 07:44 Dose: 50 mcg Lisinopril (Prinivil) 5 mg PO DAILY [facility] Last Admin: 08/04/17 08:29 Dose: 5 mg Metoprolol Tartrate (Lopressor) 12.5 mg PO BID [facility] Last Admin: 08/04/17 08:27 Dose: 12.5 mg Morphine Sulfate (Morphine) 2 mg IVPUSH ONETIME ONE Stop: 08/03/17 11:02 Last Admin: 08/03/17 11:08 Dose: 2 mg Multivitamins/Minerals (Ocuvite) 1 each PO DAILY [facility] Last Admin: 08/04/17 08:28 Dose: 1 each Mupirocin (Bactroban Oint) 1 gm TOP ONETIME ONE Stop: 08/01/17 13:50 Last Admin: 08/01/17 14:31 Dose: 1 applic Mupirocin (Bactroban Oint) 0 gm TOP DAILY [facility] Last Admin: 08/04/17 08:37 Dose: Not Given Biofreeze Own Med* (*) 0 applic TOP BID PRN PRN Reason: Pain Non-Formulary Medication (Rup Rub Analgesic Cream) 1 applic TOP BID PRN PRN Reason: Pain Omeprazole (Omeprazole) 40 mg PO BEDTIME [facility] Last Admin: 08/03/17 20:59 Dose: 40 mg Ondansetron HCl (Zofran Odt) 4 mg PO Q4H PRN PRN Reason: Nausea Pantoprazole Sodium (Protonix Iv) 40 mg IVPUSH DAILY [facility] Polyethylene Glycol (Miralax) 17 gm PO DAILY@08 [facility] Last Admin: 08/04/17 08:16 Dose: 17 gm Potassium Chloride (Klor-Con 10) 10 meq PO DAILY@1200 [facility] Last Admin: 08/03/17 11:48 Dose: 10 meq Pravastatin Sodium (Pravachol) 40 mg PO BEDTIME [facility] Last Admin: 08/03/17 20:59 Dose: 40 mg Prednisone (Prednisone) 5 mg PO DAILY@1700 [facility] Last Admin: 08/03/17 16:41 Dose: 5 mg Prednisone (Prednisone) 10 mg PO WITHBREAKFAST [facility] Last Admin: 08/04/17 08:18 Dose: 10 mg Roflumilast (Daliresp) 500 mcg PO DAILY [facility] Last Admin: 08/04/17 08:25 Dose: 500 mcg Sodium Chloride (Syrex Flush) 5 ml FLUSH Q8HR PRN PRN Reason: Keep Vein Open Last Admin: 08/03/17 20:41 Dose: 5 ml Sotalol HCl (Betapace) 120 mg PO DAILY [facility] Last Admin: 08/04/17 08:23 Dose: 120 mg Tiotropium [place] (Spiriva Handihaler) 18 mcg INH DAILY [facility] Last Admin: 08/04/17 09:17 Dose: 18 mcg Trimethoprim/Sulfamethoxazole (Septra Ds) 1 tab PO ONETIME ONE Stop: 08/01/17 13:46 Last Admin: 08/01/17 14:31 Dose: 1 tab Trimethoprim/Sulfamethoxazole (Septra Ds) 1 tab PO BID [facility] Last Admin: 08/04/17 08:30 Dose: 1 tab Venlafaxine HCl (Effexor Xr) 150 mg PO DAILY [facility] Last Admin: 08/04/17 08:26 Dose: 150 mg Warfarin Sodium (Coumadin) 2.5 mg PO MOFR@1800 MARY ALICE Warfarin Sodium (Coumadin) 5 mg PO SUTUWETHSA@1800 [facility] Last Admin: 08/03/17 14:09 Dose: Not Given Warfarin Sodium (Coumadin) 2.5 mg PO ONETIME ONE Stop: 08/02/17 18:01 Last Admin: 08/02/17 17:46 Dose: 2.5 mg Warfarin Sodium (Coumadin) 5 mg PO ONETIME ONE Stop: 08/03/17 18:01 Last Admin: 08/03/17 18:53 Dose: 5 mg *Q Meaningful Use (DIS) - VTE *Q VTE Criteria *Q: - Stroke *Q Stroke Criteria *Q: - AMI *Q AMI Criteria *Q:
== END 2017-08-04 10:25 | disposition home health service (06) | DRG 603 ==
LOC: KA.ED 12:42 → KA.MS 13:53
PROVIDERS: ADMIT Physician Assistant Surgical; ATTEND Nurse Practitioner Family
DX: L03.115 Cellulitis of right lower limb (principal); I13.0 Hypertensive heart and chronic kidney disease with heart failure and stage 1 through stage 4 chronic kidney disease, or unspecified chronic kidney disease; I50.32 Chronic diastolic (congestive) heart failure; N18.9 Chronic kidney disease, unspecified; I50.9 Heart failure, unspecified; M31.30 Wegener's granulomatosis without renal involvement; N25.81 Secondary hyperparathyroidism of renal origin; E78.00 Pure hypercholesterolemia, unspecified; I48.91 Unspecified atrial fibrillation; I25.2 Old myocardial infarction; E86.0 Dehydration; E78.5 Hyperlipidemia, unspecified; N18.3 Chronic kidney disease, stage 3 (moderate); J44.9 Chronic obstructive pulmonary disease, unspecified; F32.9 Major depressive disorder, single episode, unspecified; E11.9 Type 2 diabetes mellitus without complications; E03.9 Hypothyroidism, unspecified; D50.9 Iron deficiency anemia, unspecified; E87.6 Hypokalemia; I65.23 Occlusion and stenosis of bilateral carotid arteries; I73.9 Peripheral vascular disease, unspecified; I77.6 Arteritis, unspecified; K21.9 Gastro-esophageal reflux disease without esophagitis; K59.00 Constipation, unspecified; M81.0 Age-related osteoporosis without current pathological fracture; Z85.3 Personal history of malignant neoplasm of breast; Z85.038 Personal history of other malignant neoplasm of large intestine; Z87.891 Personal history of nicotine dependence; Z79.52 Long term (current) use of systemic steroids; Z88.0 Allergy status to penicillin; Z88.8 Allergy status to other drugs, medicaments and biological substances; Z79.899 Other long term (current) drug therapy; Z79.01 Long term (current) use of anticoagulants; Z91.041 Radiographic dye allergy status; Z95.2 Presence of prosthetic heart valve; Z99.81 Dependence on supplemental oxygen
CPT/HCPCS: 36415; 73590-RT; 80048; 80053; 84443; 85025; 85610; 87070; 87077; 87186; 94640; 94640-76; 97162-GP; 97597-GP; 99284; 99285; A9270-GY; J0696; J2270; J7030; J7040

== ENCOUNTER 2017-10-17 10:46 | Emergency (ER) | payer MEDICARE, BC ==
--- NOTE | 2017-10-17 10:56 | PCM.HP ---
H&P History of Present Illness - General Date of Service: 10/17/17 Source of Information: Patient, Family History Limitations: Reports: No Limitations - History of Present Illness Onset of Symptoms: Reports: Today, Sudden Symptom Onset Date: 10/17/17 Symptom Onset Time: 08:00 Duration of Symptoms: Reports: Hour(s):, Constant, Getting Worse Location: Reports: Lower Extremity, Left (Great toe) Quality: Reports: Ache, Sharp, Stabbing Severity: Moderate Improves with: Reports: None Worsens with: Reports: Movement Associated Symptoms: Reports: No Other Symptoms Left Feet Pain Score (Numeric/FACES): 8 - Related Data Allergies/Adverse Reactions: Allergies Allergy/AdvReac Type Severity Reaction Status Date / Time penicillamine Allergy Severe Anaphylactic Verified 10/17/17 11:47 Shock Penicillins Allergy Severe Anaphylactic Verified 10/17/17 11:47 Shock Cephalosporins Allergy Unknown Cannot Verified 10/17/17 11:47 Remember aspirin Allergy Other Verified 10/17/17 11:47 Carbapenems Allergy Cannot Verified 10/17/17 11:47 Remember divalproex sodium Allergy Delusions Verified 10/17/17 11:47 [From Depakote] imipenem Allergy Cannot Verified 10/17/17 11:47 Remember Iodinated Contrast- Oral and Allergy Chest Pain Verified 10/17/17 11:47 IV Dye valproic acid Allergy Confusion Verified 10/17/17 11:47 Home Medications: Home Meds Cholecalciferol (Vitamin D3) [Vitamin D3] 1,000 unit PO DAILY@0800 09/27/13 [ History] Pravastatin [Pravachol] 40 mg PO BEDTIME 06/24/14 [History] Albuterol Sulfate [Albuterol Sulfate HFA] 2 puff INH Q4HR PRN 08/28/14 [History] Omeprazole [Prilosec] 40 mg PO DAILY@199901/20/15 [History] Ferrous Sulfate 325 mg PO DAILY@119904/12/15 [History] Venlafaxine [Effexor XR] 150 mg PO DAILY 04/12/15 [History] Docusate Sodium [Colace] 100 mg PO BID 06/27/15 [History] Albuterol [Proventil Neb Soln] 2.5 mg NEB QID PRN 02/25/16 [History] Potassium Chloride [K-Tab ER] 10 meq PO DAILY@0800 02/25/16 [History] Warfarin [Coumadin] 5 mg PO SUTUWETHSA@1800 05/11/16 [History] Dapsone 100 mg PO DAILY 06/19/16 [History] Lisinopril [Prinivil] 5 mg PO DAILY 06/19/16 [History] Acetaminophen/HYDROcodone [[place] 325-5 MG] 1 - 2 tab PO Q6H PRN 07/15/16 [ History] predniSONE [Prednisone] 5 mg PO DAILY@1700 07/17/16 [History] predniSONE [Prednisone] 10 mg PO WITHBREAKFAST 07/17/16 [History] Metoprolol Tartrate 12.5 mg PO BID 11/08/16 [History] Sotalol HCl [Sotalol] 120 mg PO DAILY #30 tablet 11/12/16 [Rx] Clindamycin HCl 600 mg PO ASDIRECTED PRN 01/16/17 [History] Ondansetron [Zofran] 4 mg PO Q4H PRN 01/16/17 [History] Warfarin [Coumadin] 2.5 mg PO MOFR@1800 01/16/17 [History] Roflumilast [Daliresp] 500 mcg PO DAILY #30 tablet 01/20/17 [Rx] Budesonide [Pulmicort] 0.5 mg INH BID@0900,1600 02/03/17 [History] Rup Rub Analgesic Cream 1 applic TOP BID PRN 02/03/17 [History] Tiotropium [Spiriva HandiHaler] 18 mcg INH DAILY 02/03/17 [History] Bumetanide 0.5 mg PO BID@08,14 03/15/17 [History] GI Cocktail 30 ml PO DAILY PRN #1 bottle 03/25/17 [Rx] Baclofen 5 - 10 mg PO TID PRN 05/21/17 [History] Menthol [Biofreeze] 1 applic TOP BID PRN 05/21/17 [History] Polyethylene Glycol 3350 [MiraLAX] 17 gm PO DAILY@08 05/21/17 [History] Arformoterol [Brovana] 15 mcg INH BID 08/01/17 [History] Cyanocobalamin (Vitamin B-12) [Cyanocobalamin Injection] 1,000 mcg SQ TU [History] Lutein/Minerals/Vit A,C & E [I-Silvina] 1 tab PO DAILY 08/01/17 [History] Levothyroxine [Synthroid] 50 mcg PO ACBREAKFAST #60 tablet 08/04/17 [Rx] Sulfamethoxazole/Trimethoprim [IJD: Sulfamethoxazole/Trimethoprim DS] 1 tab PO BID #28 tablet 08/04/17 [Rx] Colchicine [Colcrys] 0.6 mg PO ASDIRECTED #6 tablet 10/17/17 [Rx] Past Medical History HEENT History: Reports: Hard of Hearing, Impaired Vision Cardiovascular History: Reports: Afib, Heart Failure, Heart Valve Replacement, High Cholesterol, Hypertension, CA, SOB on Exertion, Other (See Below) Other Cardiovascular History: mitral stenosis,aortic stenosis,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,vasculitis Respiratory History: Reports: COPD, Pneumonia, Recurrent, SOB, Other (See Below) Other Respiratory History: pleural effusions, on home oxygen 3L at rest & 4L with activity Gastrointestinal History: Reports: Bowel Obstruction, Diverticulosis, GERD Genitourinary History: Reports: Chronic Renal Insuffiency, Renal Disease, Other (See Below) Other Genitourinary History: acquired cyst of kidney [employer] History: Reports: Other OB/BYN History: 6 daughters, live term births Musculoskeletal History: Reports: Arthritis, Back Pain, Chronic, Osteoporosis, Other (See Below) Other Musculoskeletal History: compression fracture of thoracolumbar vertebra Neurological History: Reports: Migraines Other Neuro History: new onset confusion starting 06/18/2016 Psychiatric History: Reports: Depression Endocrine/Metabolic History: Reports: Diabetes, Type II, Hypothyroidism, Osteoporosis Hematologic History: Reports: Anemia, Blood Transfusion(s) Immunologic History: Reports: Other (See Below) Other Immunologic History: chronic steroid use Oncologic (Cancer) History: Reports: Breast, Colon Dermatologic History: Reports: Venous Stasis Dermatitis, Other (See Below) Other Dermatologic History: discolored skin from chronic steroid use - Infectious Disease History Infectious Disease History: Reports: Chicken Pox, Measles, Rheumatic Fever - Past Surgical History Head Surgeries/Procedures: Reports: None HEENT Surgical History: Reports: Cataract Surgery Cardiovascular Surgical History: Reports: Valve Replacement Respiratory Surgical History: Reports: Thoracentesis GI Surgical History: Reports: Colostomy Neurological Surgical History: Reports: Laminectomy Musculoskeletal Surgical History: Reports: Other (See Below) Other Musculoskeletal Surgeries/Procedures:: spinal injections, laminectomy Oncologic Surgical History: Reports: Mastectomy Dermatological Surgical History: Reports: None Social & Family History - Family History Family Medical History: Noncontributory HEENT: Reports: None Cardiac: Reports: None Respiratory: Reports: None GI: Reports: None : Reports: None OBGYN: Reports: None Musculoskeletal: Reports: None Neurological: Reports: None Psychiatric: Reports: None Endocrine/Metabolic: Reports: None Hematologic: Reports: None Immunologic: Reports: None Dermatologic: Reports: None Oncologic: Reports: Other (See Below) Other Oncologic Family History: parents had ca - Tobacco Use Smoking Status *Q: Former Smoker Years of Tobacco use: 40 Packs/Tins Daily: 0.5 Used Tobacco, but Quit: Yes Month/Year Tobacco Last Used: dec Second Hand Smoke Exposure: No - Caffeine Use Caffeine Use: Reports: Coffee, Soda - Alcohol Use Days Per Week of Alcohol Use: 0 - Recreational Drug Use Recreational Drug Use: No Recreational Drug Last Use: Coffee 3 cups of coffee per day, very occasional soda - Living Situation & Occupation Living situation: Reports: Occupation: Retired H&P Review of Systems - Review of Systems: Review Of Systems: See Below General: Reports: No Symptoms HEENT: Reports: No Symptoms Pulmonary: Reports: Shortness of Breath (Chronic COPD) Cardiovascular: Reports: No Symptoms (Stable condition) Gastrointestinal: Reports: No Symptoms (Stable chronic condition) Genitourinary: Reports: No Symptoms Musculoskeletal: Reports: Foot Pain (Dominantly left great toe) Skin: Reports: Erythema (Of great toe), Change in Color (Great toe), Other Psychiatric: Reports: No Symptoms Neurological: Reports: No Symptoms Hematologic/Lymphatic: Reports: Easy Bruising Immunologic: Reports: No Symptoms Exam - Exam Exam: See Below - Exam Quality Assessment: Supplemental Oxygen General: Alert, Oriented HEENT: Conjunctiva Clear, Mucosa Moist & [place], Nares Patent, Posterior Pharynx Clear Neck: Supple Lungs: Clear to Auscultation, Decreased Breath Sounds Cardiovascular: Regular Rate, Regular Rhythm, Systolic Murmur GI/Abdominal Exam: Normal Bowel Sounds, Soft (Ostomy bag in place) (Female) Exam: Deferred Rectal (Female) Exam: Deferred Extremities: No Pedal Edema, Increased Warmth (Mildly erythematous warm metatarsal phalangeal joint with pain to the distal first metatarsal). No: Non- Tender - Patient Data Result Diagrams: 10/17/17 11:20 - Problem List (1) Pain of left great toe SNOMED Code(s): 353370758 ICD Code: M79.675 - PAIN IN LEFT TOE(S) Status: Acute Priority: High Current Visit: Yes Onset Date: ~10/17/17 (2) Gout attack SNOMED Code(s): 28010170, 74470987 ICD Code: M10.9 - GOUT, UNSPECIFIED Status: Acute Priority: High Current Visit: Yes Qualifiers: Gout site: toe Gout etiology: unspecified cause Problem List Initiated/Reviewed/Updated: Yes Assessment/Plan Comment:: Take medication, colchicine as directed. Her will be picking this up at [facility] in [place]. Avoid pressure/irritation to the toe. Continue all of your current medications as directed. Recheck with your clinic next week.
[2017-10-17 11:01] VITALS: BP 149/79
== END 2017-10-17 12:15 | disposition home or self-care (01) ==
LOC: KA.ED 10:46
DX: M10.9 Gout, unspecified (principal); M79.675 Pain in left toe(s); I13.0 Hypertensive heart and chronic kidney disease with heart failure and stage 1 through stage 4 chronic kidney disease, or unspecified chronic kidney disease; I50.9 Heart failure, unspecified; E11.22 Type 2 diabetes mellitus with diabetic chronic kidney disease; N18.9 Chronic kidney disease, unspecified; E78.00 Pure hypercholesterolemia, unspecified; E03.9 Hypothyroidism, unspecified; Z88.8 Allergy status to other drugs, medicaments and biological substances; Z88.0 Allergy status to penicillin; Z88.6 Allergy status to analgesic agent; Z91.041 Radiographic dye allergy status; Z79.899 Other long term (current) drug therapy; Z87.891 Personal history of nicotine dependence
CPT/HCPCS: 36415; 73660-TA; 80048; 84550; 86140; 99283

== ENCOUNTER 2017-12-14 07:55 | Day surgery (SDC) | payer MEDICARE, BC ==
[~2017-12-14 07:55] MED LIST: Lactated Ringers 1,000 ML IV SCH; Sodium Chloride 0.9% 5 ML Syringe FLUSH PRN
[2017-12-14] MEDS ORDERED: Bupivacaine 0.5% 30 ML SDV ONE (07:57)
[2017-12-14] MEDS ORDERED: Bupivacaine 0.5%/EPINEPHrine 1:200,000 30 ML SDV ONE (07:57)
[2017-12-14] MEDS ORDERED: Ketamine 500 mg/10 ML MDV ONE (08:01)
[2017-12-14] MEDS ORDERED: Midazolam 1 MG/ML 2 ML SDV ONE (08:02)
[2017-12-14] MEDS ORDERED: Propofol 200 MG/20 ML SDV ONE (08:02)
[2017-12-14] MEDS ORDERED: fentaNYL 100 MCG/2 ML SDV ONE (08:02)
[2017-12-14] MEDS ORDERED: fentaNYL 100 MCG/2 ML SDV IV ONE (09:30)
[2017-12-14] MEDS ORDERED: Midazolam 1 MG/ML 2 ML SDV IV ONE (09:30)
[2017-12-14] MEDS ORDERED: methylPREDNISolone Acetate 40 MG/ML SDV INJECT ONE (09:30)
[2017-12-14] MEDS ORDERED: Ketamine 500 mg/10 ML MDV IV ONE (09:30)
[2017-12-14] MEDS ORDERED: Propofol 200 MG/20 ML SDV IV ONE (09:30)
[2017-12-14] MEDS ORDERED: Bupivacaine 0.5% 30 ML SDV INFILT ONE (09:50)
--- NOTE | 2017-12-14 10:27 | PCM.OPNOTE ---
- General Post-Op/Procedure Note Date of Surgery/Procedure: 12/14/17 Operative Procedure(s): Excision of ganglion cyst on the ventral aspect of the left wrist Findings: Enlarged ganglion cyst was noted on the ventral aspect of the left wrist. Pre Op Diagnosis: Ganglion cyst of the left wrist. Post-Op Diagnosis: As above. Anesthesia Technique: Regional Block Primary Surgeon: Connie Terry Condition: Good Free Text/Narrative:: Preoperative diagnosis: Large ganglion cyst of the left wrist. Postoperative diagnosis: As above. Procedure performed: Excision of ganglion cyst of the left wrist. Informed consent was obtained from the patient regarding this procedure. All possible complications were thoroughly discussed. The patient understands and wishes to proceed. She was kept in the supine position. A local [place] block anesthetic was applied by the silk printer at the level of the forearm.. The hand and forearm were thoroughly prepped. A horizontal incision was made directly on top of the cyst. Subcutaneous dissection was performed. The radial artery was found and kept out of harm's way medially. The cyst was then opened. The apple jelly material was removed. The cyst was removed completely including the wall. Light cautery was applied for hemostasis. The wound was irrigated with saline. 10 mg of Depo-Medrol was left in the wound. The skin was closed with 4-0 nylon sutures. A sterile pressure dressing was applied. The tourniquet was released. The patient tolerated the procedure well. There were no operative complications. She was returned to the recovery room in excellent condition. No blood loss.
[2017-12-14 11:08] VITALS: BP 188/68
== END 2017-12-14 12:30 | disposition home or self-care (01) ==
LOC: KA.SDS 07:55
PROVIDERS: ATTEND Family Medicine
DX: M67.432 Ganglion, left wrist (principal); M81.0 Age-related osteoporosis without current pathological fracture; E78.5 Hyperlipidemia, unspecified; I13.0 Hypertensive heart and chronic kidney disease with heart failure and stage 1 through stage 4 chronic kidney disease, or unspecified chronic kidney disease; I50.32 Chronic diastolic (congestive) heart failure; E09.22 Drug or chemical induced diabetes mellitus with diabetic chronic kidney disease; T38.0X6A Underdosing of glucocorticoids and synthetic analogues, initial encounter; N18.3 Chronic kidney disease, stage 3 (moderate); I48.91 Unspecified atrial fibrillation; J44.9 Chronic obstructive pulmonary disease, unspecified; M19.90 Unspecified osteoarthritis, unspecified site; K21.9 Gastro-esophageal reflux disease without esophagitis; F33.9 Major depressive disorder, recurrent, unspecified; Z79.01 Long term (current) use of anticoagulants; Z79.899 Other long term (current) drug therapy; Z88.0 Allergy status to penicillin; Z88.1 Allergy status to other antibiotic agents; Z88.6 Allergy status to analgesic agent; Z88.8 Allergy status to other drugs, medicaments and biological substances; Z91.041 Radiographic dye allergy status
CPT/HCPCS: 01810; 82962; 85610; 88304; J1030; J2250; J2704; J3010; J7120

== ENCOUNTER 2018-02-24 15:21 | Observation (INO) | payer MEDICARE, BC ==
[2018-02-24] MEDS ORDERED: Dextrose 5%-0.45% NaCl 1,000 ML IV SCH (15:45)
[2018-02-24] MEDS ORDERED: Potassium Chloride 20 MEQ in Premix Bag 1 BAG IV SCH (16:30)
[2018-02-24] MEDS ORDERED: Potassium Chloride 100 ML IV SCH (16:33)
[2018-02-24] MEDS ORDERED: [UNRECOGNIZED DRUG - REMARK] TOP PRN (19:47)
[2018-02-24] MEDS ORDERED: Albuterol HFA 18 Gm Inhaler INH PRN (19:47)
[2018-02-24] MEDS ORDERED: Clindamycin HCl 150 MG Cap PO PRN (19:47)
[2018-02-24] MEDS ORDERED: Acetaminophen/HYDROcodone 325-5 MG Tab PO PRN (19:47)
[2018-02-24] MEDS ORDERED: Albuterol 0.083% 2.5 MG/3 ML Neb Soln NEB PRN (19:47)
[2018-02-24] MEDS ORDERED: Denosumab 60 MG/1 ML Syringe SUBCUT SCH (20:00)
[2018-02-24] MEDS ORDERED: Ondansetron 4 MG Tab.DIS PO PRN (20:45)
[2018-02-24] MEDS ORDERED: Pravastatin 20 MG Tab PO SCH (21:00)
[2018-02-24] MEDS: Arformoterol 15 MCG/2 ML Neb Soln INH SCH (21:31)
[2018-02-24] MEDS: Iron Polysaccharides Complex 150 MG Cap PO SCH (21:38)
[2018-02-24] MEDS: Docusate Sodium 100 MG Cap PO SCH (21:38)
[2018-02-24] MEDS: Baclofen 10 MG Tab PO SCH (21:41)
[2018-02-24] MEDS: Metoprolol Tartrate 25 MG Tab PO SCH (21:42)
[2018-02-24] MEDS: Albuterol/Ipratropium 3.0-0.5 MG/3 ML Neb Soln INH SCH (22:48)
[2018-02-25] MEDS: Albuterol/Ipratropium 3.0-0.5 MG/3 ML Neb Soln INH SCH (06:02)
[2018-02-25] MEDS: Omeprazole 20 MG Cap.CR PO SCH (06:40)
[2018-02-25] MEDS: Arformoterol 15 MCG/2 ML Neb Soln INH SCH ×2 (07:09→21:23)
[2018-02-25] MEDS: Levothyroxine 100 MCG Tab PO SCH (07:19)
[2018-02-25 08:07] LABS: ANION GAP 11.3 mmol/L (5-15)
[2018-02-25] MEDS: Iron Polysaccharides Complex 150 MG Cap PO SCH ×2 (08:49→17:27)
[2018-02-25] MEDS: Docusate Sodium 100 MG Cap PO SCH ×2 (08:49→21:30)
[2018-02-25] MEDS: predniSONE 10 MG Tab PO SCH (08:50)
[2018-02-25] MEDS: Venlafaxine 150 MG Cap.ER PO SCH (08:50)
[2018-02-25] MEDS: Potassium Chloride 10 MEQ Tab.ER PO SCH (08:50)
[2018-02-25] MEDS: Cholecalciferol (Vitamin D3) 1,000 Unit Tab PO SCH (08:51)
[2018-02-25] MEDS: atorvaSTATin 40 MG Tab PO SCH (08:51)
[2018-02-25] MEDS: Polyethylene Glycol 3350 Powder 17 GM Packet PO SCH (08:54)
[2018-02-25] MEDS: Baclofen 10 MG Tab PO SCH ×3 (08:54→21:29)
[2018-02-25] MEDS ORDERED: Furosemide 20 MG Tab PO SCH (09:00)
[2018-02-25] MEDS ORDERED: Lisinopril 5 MG Tab PO SCH (09:00)
[2018-02-25] MEDS ORDERED: Tiotropium Inhaler 18 MCG Inhalation Powder Cap Kit of 5 INH SCH (09:00)
[2018-02-25] MEDS: Metoprolol Tartrate 25 MG Tab PO SCH ×2 (09:05→21:28)
[2018-02-25] MEDS: Budesonide 0.5 MG/2 ML Neb Susp INH SCH ×2 (09:16→15:06)
[2018-02-25] MEDS: Sotalol 80 MG Tab PO SCH (10:23)
[2018-02-25] MEDS ORDERED: Albuterol/Ipratropium 3.0-0.5 MG/3 ML Neb Soln INH PRN (11:00)
--- NOTE | 2018-02-25 11:00 | PCM.PN ---
- General Info Date of Service: 02/25/18 Functional Status: Reports: Pain Controlled, Tolerating Diet, Ambulating. Denies: New Symptoms - Review of Systems General: Denies: Fever, Weakness, Night Sweats HEENT: Reports: No Symptoms Pulmonary: Denies: Cough, Sputum, Hemoptysis Cardiovascular: Reports: No Symptoms Gastrointestinal: Reports: No Symptoms Genitourinary: Reports: No Symptoms Musculoskeletal: Reports: No Symptoms Skin: Reports: Bruising. Denies: Mottled, Pruritis Neurological: Denies: Confusion Psychiatric: Reports: No Symptoms - Patient Data Vitals - Most Recent: Last Vital Signs Temp 98.3 F 02/25/18 07:00 Pulse 56 L 02/25/18 10:23 Resp 16 02/25/18 07:00 BP 140/52 L 02/25/18 10:23 Pulse Ox 92 L 02/25/18 09:16 Weight - Most Recent: 119 lb 12.8 oz I&O - Last 24 Hours: Intake & Output 02/24/18 02/25/18 02/25/18 22:59 06:59 14:59 Intake Total 318 412 Output Total 0 475 Balance 318 -63 Lab Results Last 24 Hours: Laboratory Results - last 24 hr 02/24/18 02/25/18 02/25/18 Range/Units 16:08 07:20 07:20 PT 19.5 H D (8.9-11.4) SEC INR 2.0 H (0.9-1.1) Sodium 143 (136-145) mmol/L Potassium 3.2 L (3.3-5.3) mmol/L Chloride 104 (98-115) mmol/L Carbon Dioxide 30.9 (21.0-32.0) mmol/L Anion Gap 11.3 (5-15) mmol/L BUN 74 H* D (6-25) mg/dL Creatinine 1.57 H (0.51-1.17) mg/dL Est Cr Clr Drug Dosing 20.19 mL/min Estimated GFR (MDRD) 32 mL/min Glucose 110 mg/dL Calcium 8.7 (8.7-10.3) mg/dL Total Bilirubin 0.8 (0.2-1.0) mg/dL AST 21 (15-37) U/L ALT 19 (12-78) U/L Alkaline Phosphatase 57 (46-116) IU/L Troponin I 0.05 (0.00-0.070) ng/mL Total Protein 5.2 L (6.4-8.2) g/dL Albumin 3.27 (3.00-4.80) g/dL Med Orders - Current: Current Medications Hydrocodone Bitart/Acetaminophen ([place] 325-5 Mg) 1 tab PO Q6H PRN PRN Reason: Pain Albuterol (Proventil Neb Soln) 2.5 mg NEB QID PRN PRN Reason: Shortness of Breath Albuterol (Ventolin Hfa) 0 gm INH Q4HR PRN PRN Reason: Shortness of Breath Albuterol/Ipratropium (Duoneb 3.0-0.5 Mg/3 Ml) 3 ml INH QIDRT PRN PRN Reason: Shortness of Breath Arformoterol Tartrate (Brovana) 15 mcg INH BIDRT [facility] Last Admin: 02/25/18 07:09 Dose: 15 mcg Atorvastatin Calcium (Lipitor) 40 mg PO DAILY [facility] Last Admin: 02/25/18 08:51 Dose: 40 mg Baclofen (Lioresal) 5 mg PO TID [facility] Last Admin: 02/25/18 08:54 Dose: 5 mg Budesonide (Pulmicort) 0.5 mg INH BID@0900,1600 [facility] Last Admin: 02/25/18 09:16 Dose: 0.5 mg Cholecalciferol (Vitamin D3) 1,000 units PO DAILY@0800 [facility] Last Admin: 02/25/18 08:51 Dose: 1,000 units Dapsone (Dapsone) 100 mg PO DAILY [facility] Denosumab (Prolia) 60 mg SUBCUT ASDIRECTED [facility] Docusate Sodium (Colace) 100 mg PO BID [facility] Last Admin: 02/25/18 08:49 Dose: 100 mg Furosemide (Lasix) 20 mg PO DAILY [facility] Last Admin: 02/25/18 08:57 Dose: 20 mg Dextrose/Sodium Chloride (Dextrose 5%-1/2 Ns) 1,000 mls @ 40 mls/hr IV ASDIRECTED [facility] Last Admin: 02/24/18 16:55 Dose: 40 mls/hr Levothyroxine Sodium (Synthroid) 100 mcg PO ACBREAKFAST [facility] Last Admin: 02/25/18 07:19 Dose: 100 mcg Lisinopril (Prinivil) 5 mg PO DAILY [facility] Last Admin: 02/25/18 09:05 Dose: 5 mg Metoprolol Tartrate (Lopressor) 12.5 mg PO BID [facility] Last Admin: 02/25/18 09:05 Dose: 12.5 mg Multivitamins/Minerals (Centrum) 1 tab PO BEDTIME [facility] Non Form [place] (Menthol Gel) 1 applic TOP BID PRN PRN Reason: Pain Omeprazole (Omeprazole) 40 mg PO ACBRK [facility] Last Admin: 02/25/18 06:40 Dose: 40 mg Ondansetron HCl (Zofran Odt) 4 mg PO Q4H PRN PRN Reason: Nausea Polyethylene Glycol (Miralax) 17 gm PO DAILY@08 [facility] Last Admin: 02/25/18 08:54 Dose: 17 gm Polysaccharide Iron Complex (Ferrex 150) 150 mg PO BID [facility] Last Admin: 02/25/18 08:49 Dose: 150 mg Potassium Chloride (Klor-Con 10) 10 meq PO DAILY@0800 [facility] Last Admin: 02/25/18 08:50 Dose: 10 meq Prednisone (Prednisone) 10 mg PO DAILY [facility] Last Admin: 02/25/18 08:50 Dose: 10 mg Roflumilast (Daliresp) 500 mcg PO DAILY [facility] Simvastatin (Zocor) 20 mg PO BEDTIME [facility] Sotalol HCl (Betapace) 120 mg PO DAILY [facility] Last Admin: 02/25/18 10:23 Dose: 120 mg Tiotropium [place] (Spiriva Handihaler) 18 mcg INH DAILY [facility] Venlafaxine HCl (Effexor Xr) 150 mg PO DAILY [facility] Last Admin: 02/25/18 08:50 Dose: 150 mg Warfarin Sodium (Coumadin) 2.5 mg PO MOFR@1800 [facility] Warfarin Sodium (Coumadin) 5 mg PO SUTUWETHSA@1800 [facility] Discontinued Medications Albuterol/Ipratropium (Duoneb 3.0-0.5 Mg/3 Ml) 3 ml INH QIDRT [facility] Last Admin: 02/25/18 06:02 Dose: 3 ml Potassium Chloride 20 meq/ (Premix) 100 mls @ 25 mls/hr IV ONETIME [facility] Potassium Chloride (Kcl 20 Meq In Water 100 Ml) 100 mls @ 25 mls/hr IV ONETIME [facility] Stop: 02/24/18 23:59 Last Admin: 02/24/18 16:59 Dose: 25 mls/hr Pravastatin Sodium (Pravachol) 40 mg PO BEDTIME [facility] Last Admin: 02/24/18 22:15 Dose: Not Given - Exam Quality Assessment: Supplemental Oxygen General: Alert, Oriented Neck: Supple Lungs: Decreased Breath Sounds. No: Crackles, Rales Cardiovascular: Regular Rate, Murmurs GI/Abdominal Exam: Soft, Other (colostomy) (Female) Exam: Deferred Back Exam: No: CVA Tenderness (L), CVA Tenderness (R) Extremities: No Pedal Edema Peripheral Pulses: 1+: Radial (L), Radial (R) Skin: Dry, Other (extreme brawniness arms and legs. ) Neurological: Normal Speech Psy/Mental Status: Alert, Normal Affect, Normal Mood - Problem List Review Problem List Initiated/Reviewed/Updated: Yes - My Orders Last 24 Hours: My Active Orders 02/25/18 11:00 Albuterol/Ipratropium [DuoNeb 3.0-0.5 MG/3 ML] 3 ml INH QIDRT PRN - Plan Plan:: History Summary: This 83 y/o female was admitted into OBS status yesterday from [facility] 2/ 2 Acute Kidney Injury. Patient has CKD that has been on the decline Patient resides at [facility] and the nurse notified provider yesterday regarding patient being lethargic and drowsy increased fatigue and sleepiness. It was noted yesterday that the patient did have a declining GFR from 46 down to 22 and creatinine increased from her baseline of 1.15 to 2.14 with subsequent elevation in her BUN. On admission her Zaroxolyn and Bumex were held however Lasix was continued. She was given IV D5 and half-normal saline at 40 mL an hour along with potassium supplementation on admission. Pertinent Clinic workup/findings: Creatinine, 2.14, BUN 76 K+ 3.1 BNP 268 Mg 2.3 NA+ 138 Primary Hospital Problem MYA, 2/2 prerenal dehydration coupled with over-diuresis, BUN/Creat ration 48: 1. Creatinine improved 1.57 Dehydration, hypotonic Hypokalemia Chronic Problems: COPD, End stage; Continue oxygen at 3 liters per nasal cannula. Continue inhaled medications and daliresp. HFpEF; Chronic, diastolic ECHO (October 2016) LV wall thickness with Nl funtion, EF 60%, grade 1 diastolic dysfunction. BNP 268 Iron deficiency anemia. Hgb 9.8. 07/01/17 hemoglobin 10.6. Continue oral iron. History of atrial fibrillation Hx TAVR. Continue warfarin. HTN, stable. Continue current medication regimen. CAD- No ischemic presentation PVD, Recent change to statin therapy Suyapa's granulomatosis with vasculitis. Continue prednisone. Hypothyroidism. Continue levothyroxine. Steroid-induced diabetes mellitus, diet controlled. A1C <5% Secondary hyperparathyroidism--renal origin. Depression. Continue effexor. GERD PPI. Osteoporisis. On prolia. History of thoracolumbar vertebra compression fracture. Polypharmacy with high risk medications Pseudogout. Long-term use of anticoagulant therapy and systemic steroids. DVT prophylaxis. On warfarin. MDM: Hold Lasix, change IV fluids to D5 1/2 NS 40 K at 65 mL/hr. Hold ACEI; Delicate balance between fluid administration and overt overload, BUN elevated likely prerenal component. Monitor labs in am.
[2018-02-25] MEDS: D5 1/2 NS w/ 40 mEq/L KCl 1,000 ML IV SCH (13:27)
[2018-02-25] MEDS ORDERED: TIOTROPIUM 18 MCG INH SCH (14:01)
[2018-02-25] MEDS: Roflumilast 500 MCG Tab PO SCH (15:05)
[2018-02-25] MEDS: DAPSONE 100 MG PO SCH (17:27)
[2018-02-25] MEDS ORDERED: Warfarin 5 MG Tab PO SCH (18:00)
[2018-02-25] MEDS ORDERED: Simvastatin 20 MG Tab PO SCH (21:00)
[2018-02-25] MEDS ORDERED: Multivitamins with Minerals/Iron/Folic Acid/Lycopene Tab PO SCH (21:00)
[2018-02-26] MEDS: D5 1/2 NS w/ 40 mEq/L KCl 1,000 ML IV SCH (06:02)
[2018-02-26] MEDS: Omeprazole 20 MG Cap.CR PO SCH (06:18)
[2018-02-26] MEDS: Levothyroxine 100 MCG Tab PO SCH ×2 (06:18→06:31)
[2018-02-26 06:45] VITALS: BP 149/62
[2018-02-26] MEDS: Arformoterol 15 MCG/2 ML Neb Soln INH SCH (07:30)
[2018-02-26 08:01] LABS: ANION GAP 8.3 mmol/L (5-15)
[2018-02-26] MEDS: Potassium Chloride 10 MEQ Tab.ER PO SCH (08:23)
[2018-02-26] MEDS: Cholecalciferol (Vitamin D3) 1,000 Unit Tab PO SCH (08:23)
[2018-02-26] MEDS: Polyethylene Glycol 3350 Powder 17 GM Packet PO SCH (08:23)
[2018-02-26] MEDS: Budesonide 0.5 MG/2 ML Neb Susp INH SCH (08:55)
[2018-02-26] MEDS: atorvaSTATin 40 MG Tab PO SCH (09:51)
[2018-02-26] MEDS: predniSONE 10 MG Tab PO SCH (09:52)
[2018-02-26] MEDS: Docusate Sodium 100 MG Cap PO SCH (09:52)
[2018-02-26] MEDS: Sotalol 80 MG Tab PO SCH (09:53)
[2018-02-26] MEDS: Metoprolol Tartrate 25 MG Tab PO SCH (09:54)
[2018-02-26] MEDS: Roflumilast 500 MCG Tab PO SCH (09:54)
[2018-02-26] MEDS: Venlafaxine 150 MG Cap.ER PO SCH (09:55)
[2018-02-26] MEDS: Baclofen 10 MG Tab PO SCH (09:55)
[2018-02-26] MEDS: DAPSONE 100 MG PO SCH (09:55)
--- NOTE | 2018-02-26 10:02 | PCM.DCSUM1 ---
Discharge Summary - Hospital Course Brief History: See below Diagnosis: Stroke: No - Discharge Data Discharge Date: 02/26/18 Discharge Disposition: Home, Self-Care 01 Condition: Fair - Patient Instructions Diet: Low Sodium Activity: Cough & Deep Breathe Driving: Do Not Drive Showering/Bathing: May Shower Notify Provider of: Swelling and Redness, Nausea and/or Vomiting Other/Special Instructions: Report any weakness or lethargy, increased fatigue or drowsiness - Discharge Plan *PRESCRIPTION DRUG MONITORING PROGRAM REVIEWED*: Not Applicable *COPY OF PRESCRIPTION DRUG MONITORING REPORT IN PATIENT JACKI: Not Applicable Home Medications: Home Meds Cholecalciferol (Vitamin D3) [Vitamin D3] 1,000 unit PO DAILY@0800 09/27/13 [ History] Albuterol Sulfate [Albuterol Sulfate HFA] 2 puff INH Q4HR PRN 08/28/14 [History] Omeprazole [Prilosec] 40 mg PO ACBREAKFAST 01/20/15 [History] Venlafaxine [Effexor XR] 150 mg PO DAILY 04/12/15 [History] Docusate Sodium [Colace] 100 mg PO BID 06/27/15 [History] Albuterol [Proventil Neb Soln] 2.5 mg NEB QID PRN 02/25/16 [History] Potassium Chloride [K-Tab ER] 10 meq PO DAILY@0800 02/25/16 [History] Warfarin [Coumadin] 5 mg PO SUTUWETHSA@1800 05/11/16 [History] Dapsone 100 mg PO DAILY 06/19/16 [History] Lisinopril [Prinivil] 5 mg PO DAILY 06/19/16 [History] Acetaminophen/HYDROcodone [[place] 325-5 MG] 1 - 2 tab PO Q6H PRN 07/15/16 [ History] predniSONE [Prednisone] 10 mg PO WITHBREAKFAST 07/17/16 [History] Metoprolol Tartrate 12.5 mg PO BID 11/08/16 [History] Sotalol HCl [Sotalol] 120 mg PO DAILY #30 tablet 11/12/16 [Rx] Clindamycin HCl 600 mg PO ASDIRECTED PRN 01/16/17 [History] Ondansetron [Zofran] 4 mg PO Q4H PRN 01/16/17 [History] Warfarin [Coumadin] 2.5 mg PO MOFR@1800 01/16/17 [History] Roflumilast [Daliresp] 500 mcg PO DAILY #30 tablet 01/20/17 [Rx] Budesonide [Pulmicort] 0.5 mg INH BID@0900,1600 02/03/17 [History] Baclofen 5 mg PO TID 05/21/17 [History] Menthol [Biofreeze] 1 applic TOP BID PRN 05/21/17 [History] Polyethylene Glycol 3350 [MiraLAX] 17 gm PO DAILY@08 05/21/17 [History] Arformoterol [Brovana] 15 mcg INH BID 08/01/17 [History] Furosemide [Lasix] 20 mg PO DAILY 12/09/17 [History] Multivitamin [Multivitamins] 1 cap PO DAILY 12/09/17 [History] Albuterol/Ipratropium [DuoNeb 3.0-0.5 MG/3 ML] 3 ml INH QID 02/24/18 [History] Denosumab [Prolia] 60 mg SUBCUT Q180D 02/24/18 [History] Iron Polysaccharide Complex [Polysaccharide Iron 150] 150 mg PO BID 02/24/18 [ History] Levothyroxine [Synthroid] 100 mcg PO ACBREAKFAST 02/24/18 [History] Tiotropium [Spiriva HandiHaler] 18 mcg INH DAILY 02/24/18 [History] atorvaSTATin [Lipitor] 40 mg PO DAILY 02/24/18 [History] Allopurinol [Zyloprim] 100 mg PO DAILY #30 02/26/18 [Rx] Referrals: Solomon Strong PA-C [Primary Care Provider] - 03/02/18 3:00 pm - Discharge Summary/Plan Comment DC Time >30 min.: Yes Discharge Summary/Plan Comment: Final diagnosis YMA, 2/2 prerenal dehydration secondary to over-diuresis, Dehydration, hypotonic, profound Hypokalemia, resolved History Summary: This 83 y/o female was admitted into [facility] from [facility] 2/2 Acute Kidney Injury. Patient has CKD that has been on the decline Patient resides at [facility] and the nurse notified provider regarding patient being lethargic and drowsy increased fatigue and sleepiness. It was noted that the patient did have a declining GFR from 46 down to 22 and creatinine increased from her baseline of 1.15 to 2.14 with subsequent elevation in her BUN she had recently been placed on additional antidiuretics. On admission her Zaroxolyn and Bumex were held however Lasix was continued. She was given IV D5 and half- normal saline at 40 mL an hour along with potassium supplementation on admission. Admission urine studies were ordered. Pertinent Clinic workup/findings: Creatinine, 2.14, BUN 76 K+ 3.1 BNP 268 Mg 2.3 NA+ 138 Hospital course Hospital course went well, diuretics were held, fluids were given along with potassium supplementation. Intake and output strictly monitor, low sodium diet, she improved in her mentation, BUN/creatinine levels did improve. He had no shortness of breath, lungs were clear on discharge and she had no edema. She never became hemodynamically unstable. INR remained therapeutic at 2.0 her potassium was low at 3.2 however upon discharge it was 4.3. Labs on discharge Hemoglobin 8.8 Sodium 140 potassium 4.3 BUN 58 creatinine 1.19 GFR 44 Medication changes/adjustments on discharge Hold Bumex and Zaroxolyn Start back on Lasix February 27 Allopurinol reduced to 100 mg by mouth daily Change Ferrex to QOD Continue all other medication including ACEI - Patient Data Vitals - Most Recent: Last Vital Signs Temp 97.5 F 02/26/18 06:44 Pulse 56 L 02/26/18 07:30 Resp 20 02/26/18 06:44 BP 149/62 H 02/26/18 06:44 Pulse Ox 94 L 02/26/18 07:30 Weight - Most Recent: 121 lb 3 oz I&O - Last 24 hours: Intake & Output 02/25/18 02/26/18 02/26/18 22:59 06:59 14:59 Intake Total 757 593 Output Total 950 300 Balance -193 293 Lab Results - Last 24 hrs: Laboratory Results - last 24 hr 02/24/18 02/25/18 02/26/18 Range/Units 14:45 20:00 07:20 WBC (5.00-10.00) 10^3/uL RBC (3.80-5.50) 10^6/uL Hgb (12.0-16.0) g/dL Hct (37.0-47.0) % MCV (82.0-92.0) fL MCH (27.0-31.0) pg MCHC (32.0-36.0) g/dL RDW (11.5-14.5) % Plt Count (150-400) 10^3/uL MPV (7.4-10.4) fL Immature Gran % (Auto) (0.0-5.0) % Neut % (Auto) (50.0-70.0) % Lymph % (Auto) (20.0-40.0) % [place] % (Auto) (2.0-8.0) % Eos % (Auto) (1.0-3.0) % Baso % (Auto) (0.0-1.0) % Immature Gran # (Auto) (0.00-0.50) 10^3/uL Neut # (Auto) (2.50-7.00) 10^3/uL Lymph # (Auto) (1.00-4.00) 10^3/uL [place] # (Auto) (0.10-0.80) 10^3/uL Eos # (Auto) (0.10-0.30) 10^3/uL Baso # (Auto) (0.00-0.10) 10^3/uL Macrocytosis Sodium 140 (136-145) mmol/L Potassium 4.3 (3.3-5.3) mmol/L Chloride 106 (98-115) mmol/L Carbon Dioxide 30.0 (21.0-32.0) mmol/L Anion Gap 8.3 (5-15) mmol/L BUN 58 H* (6-25) mg/dL Creatinine 1.19 H (0.51-1.17) mg/dL Est Cr Clr Drug Dosing 26.63 mL/min Estimated GFR (MDRD) 44 mL/min Glucose 146 mg/dL Calcium 9.5 (8.7-10.3) mg/dL Specimen Type Urincc Urine Color Yellow (YELLOW) Urine Appearance Slightly cloudy H (CLEAR) Urine pH 5.5 (5.0-9.0) Ur Specific [place] 1.010 (1.005-1.030) Urine Protein Negative (NEGATIVE) mg/dL Urine Glucose (UA) Negative (NEGATIVE) mg/dL Urine Ketones Negative (NEGATIVE) mg/dL Urine Occult Blood Negative (NEGATIVE) Urine Nitrite Negative (NEGATIVE) Urine Bilirubin Negative (NEGATIVE) Urine Urobilinogen 0.2 (0.2-1.0) E.U./dL Ur Leukocyte Esterase Negative (NEGATIVE) Urine RBC 0-5 /HPF Urine WBC 0-5 /HPF Ur Epithelial Cells Moderate H /LPF Urine Bacteria Moderate H (NONE TO FEW) /HPF Ur Random Sodium 63.0 (40.0-220.0) mmol/L 02/26/18 Range/Units 07:20 WBC 11.15 H (5.00-10.00) 10^3/uL RBC 2.44 L (3.80-5.50) 10^6/uL Hgb 8.8 L (12.0-16.0) g/dL Hct 27.5 L (37.0-47.0) % MCV 112.7 H (82.0-92.0) fL MCH 36.1 H (27.0-31.0) pg MCHC 32.0 (32.0-36.0) g/dL RDW 14.7 H (11.5-14.5) % Plt Count 159 (150-400) 10^3/uL MPV 13.0 H (7.4-10.4) fL Immature Gran % (Auto) 1.3 (0.0-5.0) % Neut % (Auto) 68.0 (50.0-70.0) % Lymph % (Auto) 21.8 (20.0-40.0) % [place] % (Auto) 7.4 (2.0-8.0) % Eos % (Auto) 1.1 (1.0-3.0) % Baso % (Auto) 0.4 (0.0-1.0) % Immature Gran # (Auto) 0.14 (0.00-0.50) 10^3/uL Neut # (Auto) 7.59 H (2.50-7.00) 10^3/uL Lymph # (Auto) 2.43 (1.00-4.00) 10^3/uL [place] # (Auto) 0.82 H (0.10-0.80) 10^3/uL Eos # (Auto) 0.12 (0.10-0.30) 10^3/uL Baso # (Auto) 0.05 (0.00-0.10) 10^3/uL Macrocytosis 2+ moderate Sodium (136-145) mmol/L Potassium (3.3-5.3) mmol/L Chloride (98-115) mmol/L Carbon Dioxide (21.0-32.0) mmol/L Anion Gap (5-15) mmol/L BUN (6-25) mg/dL Creatinine (0.51-1.17) mg/dL Est Cr Clr Drug Dosing mL/min Estimated GFR (MDRD) mL/min Glucose mg/dL Calcium (8.7-10.3) mg/dL Specimen Type Urine Color (YELLOW) Urine Appearance (CLEAR) Urine pH (5.0-9.0) Ur Specific [place] (1.005-1.030) Urine Protein (NEGATIVE) mg/dL Urine Glucose (UA) (NEGATIVE) mg/dL Urine Ketones (NEGATIVE) mg/dL Urine Occult Blood (NEGATIVE) Urine Nitrite (NEGATIVE) Urine Bilirubin (NEGATIVE) Urine Urobilinogen (0.2-1.0) E.U./dL Ur Leukocyte Esterase (NEGATIVE) Urine RBC /HPF Urine WBC /HPF Ur Epithelial Cells /LPF Urine Bacteria (NONE TO FEW) /HPF Ur Random Sodium (40.0-220.0) mmol/L Med Orders - Current: Current Medications Hydrocodone Bitart/Acetaminophen (Prospect 325-5 Mg) 1 tab PO Q6H PRN PRN Reason: Pain Albuterol (Proventil Neb Soln) 2.5 mg NEB QID PRN PRN Reason: Shortness of Breath Albuterol (Ventolin Hfa) 0 gm INH Q4HR PRN PRN Reason: Shortness of Breath Albuterol/Ipratropium (Duoneb 3.0-0.5 Mg/3 Ml) 3 ml INH QIDRT PRN PRN Reason: Shortness of Breath Arformoterol Tartrate (Brovana) 15 mcg INH BIDRT [facility] Last Admin: 02/26/18 07:30 Dose: 15 mcg Atorvastatin Calcium (Lipitor) 40 mg PO DAILY [facility] Last Admin: 02/25/18 08:51 Dose: 40 mg Baclofen (Lioresal) 5 mg PO TID [facility] Last Admin: 02/25/18 21:29 Dose: 5 mg Budesonide (Pulmicort) 0.5 mg INH BID@0900,1600 [facility] Last Admin: 02/26/18 08:55 Dose: 0.5 mg Cholecalciferol (Vitamin D3) 1,000 units PO DAILY@0800 [facility] Last Admin: 02/26/18 08:23 Dose: 1,000 units Docusate Sodium (Colace) 100 mg PO BID [facility] Last Admin: 02/25/18 21:30 Dose: 100 mg Furosemide (Lasix) 20 mg PO DAILY [facility] Last Admin: 02/25/18 08:57 Dose: 20 mg Potassium Chloride/Dextrose/Sod Cl (D5 1/2 Ns W/ 40 Meq/L Kcl) 1,000 mls @ 65 mls/hr IV ASDIRECTED [facility] Last Admin: 02/26/18 06:02 Dose: 65 mls/hr Levothyroxine Sodium (Synthroid) 100 mcg PO ACBREAKFAST [facility] Last Admin: 02/26/18 06:31 Dose: Not Given Lisinopril (Prinivil) 5 mg PO DAILY [facility] Last Admin: 02/25/18 09:05 Dose: 5 mg Metoprolol Tartrate (Lopressor) 12.5 mg PO BID [facility] Last Admin: 02/25/18 21:28 Dose: 12.5 mg Multivitamins/Minerals (Centrum) 1 tab PO BEDTIME [facility] Last Admin: 02/25/18 21:30 Dose: 1 tab Non Form [place] (Menthol Gel) 1 applic TOP BID PRN PRN Reason: Pain Omeprazole (Omeprazole) 40 mg PO ACBRK [facility] Last Admin: 02/26/18 06:18 Dose: 40 mg Ondansetron HCl (Zofran Odt) 4 mg PO Q4H PRN PRN Reason: Nausea Ptom Tiotropium Inhaler 18 Mcg Inhalation Powder Cap 1 each INH DAILY [facility] Last Admin: 02/26/18 09:28 Dose: 1 each Ptom Dapsone 100 (Mg Tab) 1 each PO DAILY [facility] Last Admin: 02/25/18 17:27 Dose: 1 each Polyethylene Glycol (Miralax) 17 gm PO DAILY@08 [facility] Last Admin: 02/26/18 08:23 Dose: 17 gm Polysaccharide Iron Complex (Ferrex 150) 150 mg PO BID@1200,1800 [facility] Last Admin: 02/25/18 17:27 Dose: 150 mg Potassium Chloride (Klor-Con 10) 10 meq PO DAILY@0800 [facility] Last Admin: 02/26/18 08:23 Dose: 10 meq Prednisone (Prednisone) 10 mg PO DAILY [facility] Last Admin: 02/25/18 08:50 Dose: 10 mg Roflumilast (Daliresp) 500 mcg PO DAILY [facility] Last Admin: 02/25/18 15:05 Dose: 500 mcg Sotalol HCl (Betapace) 120 mg PO DAILY [facility] Last Admin: 02/25/18 10:23 Dose: 120 mg Venlafaxine HCl (Effexor Xr) 150 mg PO DAILY [facility] Last Admin: 02/25/18 08:50 Dose: 150 mg Warfarin Sodium (Coumadin) 2.5 mg PO MOFR@1800 [facility] Warfarin Sodium (Coumadin) 5 mg PO SUTUWETHSA@1800 [facility] Last Admin: 02/25/18 17:27 Dose: 5 mg Discontinued Medications Albuterol/Ipratropium (Duoneb 3.0-0.5 Mg/3 Ml) 3 ml INH QIDRT [facility] Last Admin: 02/25/18 06:02 Dose: 3 ml Dapsone (Dapsone) 100 mg PO DAILY [facility] Last Admin: 02/25/18 14:58 Dose: Not Given Dextrose/Sodium Chloride (Dextrose 5%-1/2 Ns) 1,000 mls @ 40 mls/hr IV ASDIRECTED [facility] Last Admin: 02/24/18 16:55 Dose: 40 mls/hr Potassium Chloride 20 meq/ (Premix) 100 mls @ 25 mls/hr IV ONETIME [facility] Potassium Chloride (Kcl 20 Meq In Water 100 Ml) 100 mls @ 25 mls/hr IV ONETIME [facility] Stop: 02/24/18 23:59 Last Admin: 02/24/18 16:59 Dose: 25 mls/hr Polysaccharide Iron Complex (Ferrex 150) 150 mg PO BID [facility] Last Admin: 02/25/18 08:49 Dose: 150 mg Pravastatin Sodium (Pravachol) 40 mg PO BEDTIME [facility] Last Admin: 02/24/18 22:15 Dose: Not Given Tiotropium [place] (Spiriva Handihaler) 18 mcg INH DAILY [facility] Last Admin: 02/25/18 14:58 Dose: Not Given
[2018-02-26] MEDS: Iron Polysaccharides Complex 150 MG Cap PO SCH (12:50)
[2018-02-26] MEDS ORDERED: Warfarin 2.5 MG Tab PO SCH (18:00)
== END 2018-02-26 14:55 | disposition home or self-care (01) ==
LOC: KA.MS 15:36
PROVIDERS: ADMIT Physician Assistant; ATTEND Family Medicine
DX: I13.0 Hypertensive heart and chronic kidney disease with heart failure and stage 1 through stage 4 chronic kidney disease, or unspecified chronic kidney disease (principal); I50.33 Acute on chronic diastolic (congestive) heart failure; N18.4 Chronic kidney disease, stage 4 (severe); N17.9 Acute kidney failure, unspecified; E86.0 Dehydration; E09.9 Drug or chemical induced diabetes mellitus without complications; T38.0X5A Adverse effect of glucocorticoids and synthetic analogues, initial encounter; E03.8 Other specified hypothyroidism; E78.5 Hyperlipidemia, unspecified; J44.9 Chronic obstructive pulmonary disease, unspecified; M81.0 Age-related osteoporosis without current pathological fracture; F32.9 Major depressive disorder, single episode, unspecified; I73.9 Peripheral vascular disease, unspecified; D50.9 Iron deficiency anemia, unspecified; I25.10 Atherosclerotic heart disease of native coronary artery without angina pectoris; M31.30 Wegener's granulomatosis without renal involvement; M11.20 Other chondrocalcinosis, unspecified site; Z79.01 Long term (current) use of anticoagulants; Z79.82 Long term (current) use of aspirin; Z79.84 Long term (current) use of oral hypoglycemic drugs; Z79.899 Other long term (current) drug therapy; Z88.0 Allergy status to penicillin; Z88.6 Allergy status to analgesic agent; Z88.1 Allergy status to other antibiotic agents; Z88.8 Allergy status to other drugs, medicaments and biological substances; Z91.041 Radiographic dye allergy status; Z87.891 Personal history of nicotine dependence
CPT/HCPCS: 36415; 80048; 80053; 81001; 82570; 83935; 84300; 84484; 85025; 85610; 94640; 94640-76; 96361; 96365; 96366; A9270-GY; G0378; J3480; J7042; J7620-GY

== ENCOUNTER 2018-07-11 11:10 | Observation (INO) | payer MEDICARE, BC ==
[2018-07-11] MEDS ORDERED: HYDROmorphone 1 MG/ML Syringe IVPUSH SCH (12:00)
[2018-07-11 12:37] LABS: ANION GAP 14.7 mmol/L (5-15)
[2018-07-11] MEDS ORDERED: Sodium Chloride 0.9% 1,000 ML IV ONE (12:39)
[2018-07-11] MEDS ORDERED: Cyclobenzaprine 10 MG Tab PO ONE (12:39)
--- NOTE | 2018-07-11 12:48 | EDM.PDOC ---
ED HPI GENERAL MEDICAL PROBLEM - General Chief Complaint: Abdominal Pain Stated Complaint: UPPER ABD PAIN, BACK PAIN Time Seen by Provider: 07/11/18 12:15 Source of Information: Reports: Patient, Significant Other History Limitations: Reports: No Limitations - History of Present Illness INITIAL COMMENTS - FREE TEXT/NARRATIVE: Patient presents with back pain that comes in spasms lasting a few seconds. The pain started two days ago in mid-epigastrium, went to RUQ and around to flank. This is where the pain is today. She wonders if it is her gallbladder since that is the only thing she has never had problems with before. She doesn' t recall if they are worse after eating. She has also had significant problems with chronic back spasms and pain for the past 40 years. It has been worse the past 5 years and she has been getting steroid injections in her back regularly the past 3-4 years, most recently last week; but this time it didn't seem to help as much as usual she says. She sees a pain specialist in [place] for this. Denies history of kidney stones and no recent dysuria or hematuria. She hasn't eaten anything today except two small cookies in the car on the way here. Treatments HOUSEKEEPING STAFF: Reports: Other (see below) Other Treatments HOUSEKEEPING STAFF: hydrocodone - Related Data Allergies Allergy/AdvReac Type Severity Reaction Status Date / Time penicillamine Allergy Severe Anaphylactic Verified 07/11/18 12:13 Shock Penicillins Allergy Severe Anaphylactic Verified 07/11/18 12:13 Shock Cephalosporins Allergy Unknown Cannot Verified 07/11/18 12:13 Remember aspirin Allergy Other Verified 07/11/18 12:13 Carbapenems Allergy Cannot Verified 07/11/18 12:13 Remember divalproex sodium Allergy Delusions Verified 07/11/18 12:13 [From Depakote] imipenem Allergy Cannot Verified 07/11/18 12:13 Remember Iodinated Contrast- Oral and Allergy Chest Pain Verified 07/11/18 12:13 IV Dye valproic acid Allergy Confusion Verified 07/11/18 12:13 Home Meds: Home Meds Cholecalciferol (Vitamin D3) [Vitamin D3] 1,000 unit PO DAILY@0800 09/27/13 [ History] Albuterol Sulfate [Albuterol Sulfate HFA] 2 puff INH Q4HR PRN 08/28/14 [History] Omeprazole [Prilosec] 40 mg PO ACBREAKFAST 01/20/15 [History] Venlafaxine [Effexor XR] 150 mg PO DAILY 04/12/15 [History] Docusate Sodium [Colace] 100 mg PO BID 06/27/15 [History] Albuterol [Proventil Neb Soln] 2.5 mg NEB QID PRN 02/25/16 [History] Potassium Chloride [K-Tab ER] 10 meq PO DAILY@0800 02/25/16 [History] Warfarin [Coumadin] 5 mg PO SUTUWETHSA@1800 05/11/16 [History] Dapsone 100 mg PO DAILY 06/19/16 [History] Lisinopril [Prinivil] 5 mg PO DAILY 06/19/16 [History] predniSONE [Prednisone] 10 mg PO WITHBREAKFAST 07/17/16 [History] Metoprolol Tartrate 12.5 mg PO BID 11/08/16 [History] Sotalol HCl [Sotalol] 120 mg PO DAILY #30 tablet 11/12/16 [Rx] Clindamycin HCl 600 mg PO ASDIRECTED PRN 01/16/17 [History] Ondansetron [Zofran] 4 mg PO Q4H PRN 01/16/17 [History] Warfarin [Coumadin] 2.5 mg PO MOFR@1800 01/16/17 [History] Roflumilast [Daliresp] 500 mcg PO DAILY #30 tablet 01/20/17 [Rx] Menthol [Biofreeze] 1 applic TOP BID PRN 05/21/17 [History] Polyethylene Glycol 3350 [MiraLAX] 17 gm PO DAILY@08 05/21/17 [History] Arformoterol [Brovana] 15 mcg INH BID 08/01/17 [History] Furosemide [Lasix] 20 mg PO DAILY 12/09/17 [History] Multivitamin [Multivitamins] 1 cap PO DAILY 12/09/17 [History] Albuterol/Ipratropium [DuoNeb 3.0-0.5 MG/3 ML] 3 ml INH QID PRN 02/24/18 [ History] Denosumab [Prolia] 60 mg SUBCUT Q180D 02/24/18 [History] Levothyroxine [Synthroid] 50 mcg PO ACBREAKFAST 02/24/18 [History] Tiotropium [Spiriva HandiHaler] 18 mcg INH DAILY 02/24/18 [History] atorvaSTATin [Lipitor] 40 mg PO DAILY 02/24/18 [History] Allopurinol [Zyloprim] 100 mg PO DAILY 05/08/18 [History] Hydrocodone/Acetaminophen [Hydrocodon-Acetaminophen 5-325] 1 - 2 tab PO Q6H PRN 05/08/18 [History] Poop Goop 1 gm TOP BID PRN 05/08/18 [History] Rup Rub 1 gm TOP BID 05/08/18 [History] Baclofen 5 mg PO TID 07/11/18 [History] Iron,Carbonyl/Ascorbic Acid [Vitron-C Tablet] 1 each PO BID 07/11/18 [History] Past Medical History HEENT History: Reports: Hard of Hearing, Impaired Vision Cardiovascular History: Reports: Afib, Heart Failure, Heart Valve Replacement, High Cholesterol, Hypertension, [place], SOB on Exertion, Other (See Below) Other Cardiovascular History: mitral stenosis,aortic stenosis,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,vasculitis Respiratory History: Reports: COPD, Pneumonia, Recurrent, SOB, Other (See Below) Other Respiratory History: pleural effusions, on home oxygen 3L at rest & 4L with activity Gastrointestinal History: Reports: Bowel Obstruction, Diverticulosis, GERD Genitourinary History: Reports: Chronic Renal Insuffiency, Renal Disease, Other (See Below) Other Genitourinary History: acquired cyst of kidney ASSET PROTECTION SPECIALIST History: Reports: Other ASSET PROTECTION SPECIALIST History: 6 daughters, live term births Musculoskeletal History: Reports: Arthritis, Back Pain, Chronic, Osteoporosis, Other (See Below) Other Musculoskeletal History: compression fracture of thoracolumbar vertebra Neurological History: Reports: Migraines Other Neuro History: new onset confusion starting 06/18/2016 Psychiatric History: Reports: Depression Endocrine/Metabolic History: Reports: Diabetes, Type II, Hypothyroidism, Osteoporosis Hematologic History: Reports: Anemia, Blood Transfusion(s) Immunologic History: Reports: Other (See Below) Other Immunologic History: chronic steroid use Oncologic (Cancer) History: Reports: Breast, Colon Dermatologic History: Reports: Venous Stasis Dermatitis, Other (See Below) Other Dermatologic History: discolored skin from chronic steroid use - Infectious Disease History Infectious Disease History: Reports: Chicken Pox, Measles, Mumps, Rheumatic Fever - Past Surgical History Head Surgeries/Procedures: Reports: None HEENT Surgical History: Reports: Cataract Surgery Cardiovascular Surgical History: Reports: Valve Replacement Respiratory Surgical History: Reports: Thoracentesis GI Surgical History: Reports: Colostomy Female Surgical History: Reports: Breast Biopsy, Mastectomy Endocrine Surgical History: Reports: None Neurological Surgical History: Reports: Laminectomy Musculoskeletal Surgical History: Reports: Other (See Below) Other Musculoskeletal Surgeries/Procedures:: spinal injections, laminectomy Oncologic Surgical History: Reports: Mastectomy Dermatological Surgical History: Reports: None Social & Family History - Family History Family Medical History: Noncontributory HEENT: Reports: None Cardiac: Reports: None Respiratory: Reports: None GI: Reports: None : Reports: None OBGYN: Reports: None Musculoskeletal: Reports: None Neurological: Reports: None Psychiatric: Reports: None Endocrine/Metabolic: Reports: None Hematologic: Reports: None Immunologic: Reports: None Dermatologic: Reports: None Oncologic: Reports: Other (See Below) Other Oncologic Family History: parents had ca - Tobacco Use Smoking Status *Q: Never Smoker - Caffeine Use Caffeine Use: Reports: Coffee - Recreational Drug Use Recreational Drug Use: No - Living Situation & Occupation Living situation: Reports: Occupation: Retired ED ROS GENERAL - Review of Systems Review Of Systems: See Below Constitutional: Denies: Fever, Chills, Weakness HEENT: Reports: Nosebleed (often). Denies: Vision Change Respiratory: Reports: Shortness of Breath (chronic, on O2 24/7). 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 Denies: Chest Pain, Edema (wears TEDS), Syncope GI/Abdominal: Reports: Abdominal Pain, Nausea (after an iron supplement recently but not now). Denies: Black Stool, Bloody Stool, Constipation, Diarrhea (has a colostomy x 3 years after colon resection from cyst not cancer) , Vomiting : Reports: Flank Pain. Denies: Dysuria, Hematuria Musculoskeletal: Reports: Back Pain. Denies: Neck Pain, Shoulder Pain, Arm Pain , Hand Pain, Leg Pain Skin: Denies: Cyanosis, Jaundice, Mottled, Pallor, Diaphoresis Neurological: Denies: Confusion, Dizziness, Headache, Seizure, Syncope, Change in Speech Psychiatric: Denies: Agitation, Anxiety, Confusion Hematologic/Lymphatic: Reports: Easy Bleeding (on warfarin for heart valve replacement) ED EXAM,LOWER BACK PAIN/INJURY - Physical Exam Exam: See Below Exam Limited By: No Limitations General Appearance: Alert, WD/WN, No Apparent Distress (except she winces during brief episodes every couple minutes) Ears: Normal External Exam, Hearing Grossly Normal Nose: Normal Inspection, No Blood Throat/Mouth: Normal Inspection, Normal Lips, Normal Voice, No Airway Compromise Head: Atraumatic, Normocephalic Neck: Normal Inspection, Supple, Full Range of Motion Respiratory/Chest: No Respiratory Distress, Lungs Clear, Normal Breath Sounds, No Accessory Muscle Use Cardiovascular: Regular Rate, Rhythm, No Edema, Systolic Murmur GI/Abdominal: Normal Bowel Sounds, Soft, Non-Tender, No Organomegaly, No Distention, No Abnormal Bruit, No Mass. No: Distended, Guarding, Rigid, Tender , Mass, Hepatomegaly, Splenomegaly Back Exam: CVA Tenderness (R) (only slightly and not consistently reproducible) . No: CVA Tenderness (L) Extremities: Normal Inspection, No Pedal Edema (TEDS on bilat) Neurological: Alert, Normal Mood/Affect, Oriented x 3 Psychiatric: Normal Affect, Normal Mood Skin Exam: Warm, Dry, Intact, Normal Color, No Rash Course - Vital Signs Last Recorded V/S: Last Vital Signs Temp 98.1 F 07/11/18 12:30 Pulse 54 L 07/11/18 13:30 Resp 18 07/11/18 13:30 BP 147/36 H 07/11/18 13:30 Pulse Ox 93 L 07/11/18 13:30 - Orders/Labs/Meds Orders: Active Orders 24 hr Category Date Time Status Patient Status [ADT] Routine ADT 07/11/18 14:26 Ordered HYDROmorphone [Dilaudid] Med 07/11/18 12:00 Active 0.5 mg IVPUSH ONETIME Sodium Chloride 0.9% [Normal Saline] 50 ml Med 07/11/18 13:00 Active IV ASDIRECTED Medication Orders Hydromorphone HCl (Dilaudid) 0.5 mg IVPUSH ONETIME MARY ALICE Last Admin: 07/11/18 12:10 Dose: 0.5 mg Sodium Chloride (Normal Saline) 50 mls @ 200 mls/hr IV ASDIRECTED MARY ALICE Last Admin: 07/11/18 13:29 Dose: 200 mls/hr Labs: Laboratory Tests 07/11/18 07/11/18 07/11/18 Range/Units 11:56 11:56 11:56 WBC 9.53 (5.00-10.00) 10^3/uL RBC 2.56 L (3.80-5.50) 10^6/uL Hgb 9.6 L (12.0-16.0) g/dL Hct 30.5 L (37.0-47.0) % MCV 119.1 H (82.0-92.0) fL MCH 37.5 H (27.0-31.0) pg MCHC 31.5 L (32.0-36.0) g/dL RDW 15.7 H (11.5-14.5) % Plt Count 134 L (150-400) 10^3/uL MPV 11.8 H (7.4-10.4) fL Immature Gran % (Auto) 0.5 (0.0-5.0) % Neut % (Auto) 65.1 (50.0-70.0) % Lymph % (Auto) 25.2 (20.0-40.0) % [place] % (Auto) 7.6 (2.0-8.0) % Eos % (Auto) 1.2 (1.0-3.0) % Baso % (Auto) 0.4 (0.0-1.0) % Immature Gran # (Auto) 0.05 (0.00-0.50) 10^3/uL Neut # (Auto) 6.21 (2.50-7.00) 10^3/uL Lymph # (Auto) 2.40 (1.00-4.00) 10^3/uL [place] # (Auto) 0.72 (0.10-0.80) 10^3/uL Eos # (Auto) 0.11 (0.10-0.30) 10^3/uL Baso # (Auto) 0.04 (0.00-0.10) 10^3/uL PT 14.5 H D (8.9-11.4) SEC INR 1.4 H (0.9-1.1) Sodium 148 H (136-145) mmol/L Potassium 3.4 (3.3-5.3) mmol/L Chloride 106 (98-115) mmol/L Carbon Dioxide 30.7 (21.0-32.0) mmol/L Anion Gap 14.7 (5-15) mmol/L BUN 21 (6-25) mg/dL Creatinine 1.00 (0.51-1.17) mg/dL Est Cr Clr Drug Dosing 31.69 mL/min Estimated GFR (MDRD) 53 mL/min Glucose 173 H (75 - 99) mg/dL Calcium 9.2 (8.7-10.3) mg/dL Total Bilirubin 0.8 (0.2-1.0) mg/dL AST 19 (15-37) U/L ALT 19 (12-78) U/L Alkaline Phosphatase 63 (46-116) IU/L Total Protein 5.3 L (6.4-8.2) g/dL Albumin 3.11 (3.00-4.80) g/dL Lipase 171 (73-393) U/L Specimen Type Urine Color (YELLOW) Urine Appearance (CLEAR) Urine pH (5.0-9.0) Ur Specific [place] (1.005-1.030) Urine Protein (NEGATIVE) mg/dL Urine Glucose (UA) (NEGATIVE) mg/dL Urine Ketones (NEGATIVE) mg/dL Urine Occult Blood (NEGATIVE) Urine Nitrite (NEGATIVE) Urine Bilirubin (NEGATIVE) Urine Urobilinogen (0.2-1.0) E.U./dL Ur Leukocyte Esterase (NEGATIVE) Urine RBC (0-5) /HPF Urine WBC (0-5) /HPF Ur Epithelial Cells /LPF Urine Bacteria (NONE TO FEW) /HPF Hyaline Casts (NEGATIVE) /LPF Urine Mucus (NEGATIVE) /LPF 07/11/18 Range/Units 13:30 WBC (5.00-10.00) 10^3/uL RBC (3.80-5.50) 10^6/uL Hgb (12.0-16.0) g/dL Hct (37.0-47.0) % MCV (82.0-92.0) fL MCH (27.0-31.0) pg MCHC (32.0-36.0) g/dL RDW (11.5-14.5) % Plt Count (150-400) 10^3/uL MPV (7.4-10.4) fL Immature Gran % (Auto) (0.0-5.0) % Neut % (Auto) (50.0-70.0) % Lymph % (Auto) (20.0-40.0) % [place] % (Auto) (2.0-8.0) % Eos % (Auto) (1.0-3.0) % Baso % (Auto) (0.0-1.0) % Immature Gran # (Auto) (0.00-0.50) 10^3/uL Neut # (Auto) (2.50-7.00) 10^3/uL Lymph # (Auto) (1.00-4.00) 10^3/uL [place] # (Auto) (0.10-0.80) 10^3/uL Eos # (Auto) (0.10-0.30) 10^3/uL Baso # (Auto) (0.00-0.10) 10^3/uL PT (8.9-11.4) SEC INR (0.9-1.1) Sodium (136-145) mmol/L Potassium (3.3-5.3) mmol/L Chloride (98-115) mmol/L Carbon Dioxide (21.0-32.0) mmol/L Anion Gap (5-15) mmol/L BUN (6-25) mg/dL Creatinine (0.51-1.17) mg/dL Est Cr Clr Drug Dosing mL/min Estimated GFR (MDRD) mL/min Glucose (75 - 99) mg/dL Calcium (8.7-10.3) mg/dL Total Bilirubin (0.2-1.0) mg/dL AST (15-37) U/L ALT (12-78) U/L Alkaline Phosphatase (46-116) IU/L Total Protein (6.4-8.2) g/dL Albumin (3.00-4.80) g/dL Lipase (73-393) U/L Specimen Type Urincc Urine Color Dark yellow H (YELLOW) Urine Appearance Slightly cloudy H (CLEAR) Urine pH 5.5 (5.0-9.0) Ur Specific [place] 1.015 (1.005-1.030) Urine Protein 100 H (NEGATIVE) mg/dL Urine Glucose (UA) Negative (NEGATIVE) mg/dL Urine Ketones Negative (NEGATIVE) mg/dL Urine Occult Blood Trace-intact H (NEGATIVE) Urine Nitrite Negative (NEGATIVE) Urine Bilirubin Small H (NEGATIVE) Urine Urobilinogen 0.2 (0.2-1.0) E.U./dL Ur Leukocyte Esterase Negative (NEGATIVE) Urine RBC 0-5 (0-5) /HPF Urine WBC 5-10 H (0-5) /HPF Ur Epithelial Cells Moderate H /LPF Urine Bacteria Occasional (NONE TO FEW) /HPF Hyaline Casts Few H (NEGATIVE) /LPF Urine Mucus Moderate H (NEGATIVE) /LPF Meds: Medications Generic Name Dose Route Start Last Admin Trade Name Freq PRN Reason Stop Dose Admin Hydromorphone HCl 0.5 mg 07/11/18 12:00 07/11/18 12:10 Dilaudid IVPUSH 0.5 mg ONETIME MARY ALICE Administration Sodium Chloride 50 mls @ 200 mls/hr 07/11/18 13:00 07/11/18 13:29 Normal Saline IV 200 mls/hr ASDIRECTED MARY ALICE Administration Discontinued Medications Generic Name Dose Route Start Last Admin Trade Name Freq PRN Reason Stop Dose Admin Cyclobenzaprine HCl 10 mg 07/11/18 12:39 07/11/18 12:46 Flexeril PO 07/11/18 12:40 10 mg ONETIME ONE Administration Sodium Chloride 1,000 mls @ 999 mls/hr 07/11/18 12:39 07/11/18 12:46 Normal Saline IV 07/11/18 13:39 999 mls/hr .BOLUS ONE Administration Iopamidol 75 ml 07/11/18 12:56 07/11/18 13:28 [id number] (76%) IVPUSH 07/11/18 12:57 75 ml ONETIME ONE Administration - Re-Assessments/Exams Free Text/Narrative Re-Assessment/Exam: 07/11/18 14:[address] shows large amount of colonic stool. Gallbladder and other abdominal organs okay. Unchanged nodule on adrenal compared to Apr 2017. Patient isn't noticing much improvement with the Dilaudid and Flexeril. Discussed findings with patient and her family. Discussed case with Dr. Sharmin Robins and will admit for observation. Patient stable through ER course. Departure - Departure Time of Disposition: 14:27 Disposition: Refer to Observation Condition: Good Clinical Impression: Muscle spasm of back, Constipation by delayed colonic transit, Colostomy care Back pain Qualifiers: Back pain location: thoracic back pain Chronicity: chronic Back pain laterality : right Qualified Code(s): M54.6 - Pain in thoracic spine - Discharge Information Referrals: Solomon Strong PA-C [Primary Care Provider] - Forms: ED Department Discharge - My Orders Last 24 Hours: My Active Orders 07/11/18 12:00 HYDROmorphone [Dilaudid] 0.5 mg IVPUSH ONETIME 07/11/18 13:00 Sodium Chloride 0.9% [Normal Saline] 50 ml IV ASDIRECTED 07/11/18 14:26 Patient Status [ADT] Routine - Assessment/Plan Last 24 Hours: My Active Orders 07/11/18 12:00 HYDROmorphone [Dilaudid] 0.5 mg IVPUSH ONETIME 07/11/18 13:00 Sodium Chloride 0.9% [Normal Saline] 50 ml IV ASDIRECTED 07/11/18 14:26 Patient Status [ADT] Routine
[2018-07-11] MEDS ORDERED: Iopamidol 755 Mg/ML 75 ML Bottle IVPUSH ONE (12:56)
[2018-07-11] MEDS ORDERED: Sodium Chloride 0.9% 50 ML IV SCH (13:00)
--- NOTE | 2018-07-11 14:01 | CT ---
[id number] CT/CT Abdomen Pelvis W IV EXAM: CT Abdomen Pelvis W IV CLINICAL DATA: RIGHT FLANK PAIN. PAIN STARTED IN MID-EPIGASTRIUM TO COMPARISON STUDY: May 21, 2017. FINDINGS: Small left and trace right pleural effusions with associated compressive atelectasis. The heart is enlarged. Atherosclerotic calcifications of the aorta and its branches. Mitral annular calcifications. Aortic valve replacement. Liver, spleen, gallbladder, and pancreas are unremarkable. Bilateral renal cortical cysts. No renal calculi. No hydronephrosis or hydroureter. 1.8 cm right adrenal nodule is stable compared to study from May 21, 2017. The left adrenal gland is unremarkable. Atherosclerotic calcifications of the aorta and its branches. No bowel obstruction or inflammation. Left lower quadrant ostomy. The appendix is not well-visualized however there are no secondary signs of acute appendicitis. Large amount of retained stool within the colon. No lymphadenopathy, free fluid, or pneumoperitoneum. Scattered changes of spondylosis the spine. No fracture or osseous lesion. 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 No evidence of acute compression deformity. IMPRESSION: 1. Small left and trace right pleural effusions associated compressive atelectasis. 2. Large amount of retained stool within the colon. Marlon Berry DO 07/11/18 1400 Thank you for allowing us to participate in the care of your patient.
[2018-07-11] MEDS ORDERED: Acetaminophen 325 MG Tab PO PRN (17:01)
[2018-07-11] MEDS ORDERED: Magnesium Citrate Solution 296 ML Bottle PO ONE (17:01)
[2018-07-11] MEDS ORDERED: Albuterol 0.083% 2.5 MG/3 ML Neb Soln NEB PRN (17:13)
[2018-07-11] MEDS ORDERED: Non-Formulary Medication 1 Each (Albuterol 2 PUFF) INH PRN (17:13)
[2018-07-11] MEDS ORDERED: Non-Formulary Medication 1 Each (Menthol [Biofreeze] 1 APPLIC) TOP PRN (17:13)
[2018-07-11] MEDS ORDERED: Albuterol/Ipratropium 3.0-0.5 MG/3 ML Neb Soln INH PRN (17:13)
[2018-07-11] MEDS ORDERED: Diazepam 5 MG Tab PO PRN (17:32)
[2018-07-11] MEDS ORDERED: Warfarin 5 MG Tab PO SCH (18:00)
[2018-07-11] MEDS: Arformoterol 15 MCG/2 ML Neb Soln INH SCH (19:36)
[2018-07-11] MEDS ORDERED: atorvaSTATin 40 MG Tab PO SCH (21:00)
[2018-07-11] MEDS ORDERED: [UNRECOGNIZED DRUG - OTHER] TOP SCH (21:00)
[2018-07-11] MEDS: Metoprolol Tartrate 25 MG Tab PO SCH (21:35)
[2018-07-11] MEDS: Baclofen 10 MG Tab PO SCH (21:35)
[2018-07-11] MEDS: Acetaminophen/HYDROcodone 325-5 MG Tab PO PRN (22:41)
[2018-07-12] MEDS: Acetaminophen/HYDROcodone 325-5 MG Tab PO PRN (05:15)
[2018-07-12] MEDS ORDERED: Sodium Chloride 0.9% 10 ML Syringe FLUSH PRN (05:20)
[2018-07-12] MEDS ORDERED: Omeprazole 20 MG Cap.CR PO SCH (07:30)
[2018-07-12] MEDS ORDERED: Levothyroxine 88 MCG Tab PO SCH (07:30)
[2018-07-12] MEDS ORDERED: Levothyroxine 50 MCG Tab PO SCH (07:30)
[2018-07-12 07:48] LABS: ANION GAP 9.9 mmol/L (5-15)
[2018-07-12] MEDS ORDERED: predniSONE 5 MG Tab PO SCH (08:00)
[2018-07-12] MEDS ORDERED: Non-Formulary Medication 1 Each (Iron,Carbonyl/Ascorbic Acid [Vitron-C Tablet] 1 EACH) PO SCH (08:00)
[2018-07-12] MEDS ORDERED: Potassium Chloride 10 MEQ Tab.ER PO SCH (08:00)
[2018-07-12] MEDS ORDERED: Polyethylene Glycol 3350 Powder 17 GM Packet PO SCH (08:00)
[2018-07-12] MEDS ORDERED: Cholecalciferol (Vitamin D3) 1,000 Unit Tab PO SCH (08:00)
[2018-07-12] MEDS: Baclofen 10 MG Tab PO SCH (08:12)
[2018-07-12 08:14] VITALS: BP 163/61
[2018-07-12] MEDS: Metoprolol Tartrate 25 MG Tab PO SCH (08:14)
[2018-07-12] MEDS: Arformoterol 15 MCG/2 ML Neb Soln INH SCH (08:23)
[2018-07-12] MEDS ORDERED: [UNRECOGNIZED DRUG - OTHER] TOP SCH (09:00)
[2018-07-12] MEDS ORDERED: Lisinopril 5 MG Tab PO SCH (09:00)
[2018-07-12] MEDS ORDERED: Venlafaxine 150 MG Cap.ER PO SCH (09:00)
[2018-07-12] MEDS ORDERED: Docusate Sodium 100 MG Cap PO SCH (09:00)
[2018-07-12] MEDS ORDERED: Sotalol 80 MG Tab PO SCH (09:00)
[2018-07-12] MEDS ORDERED: Roflumilast 500 MCG Tab PO SCH (09:00)
[2018-07-12] MEDS ORDERED: Tiotropium Inhaler 18 MCG Inhalation Powder Cap INH SCH (09:00)
[2018-07-12] MEDS ORDERED: Furosemide 20 MG Tab PO SCH (09:00)
[2018-07-12] MEDS ORDERED: Allopurinol 100 MG Tab PO SCH (09:00)
[2018-07-12] MEDS ORDERED: Arformoterol 15 MCG/2 ML Neb Soln INH SCH (09:30)
--- NOTE | 2018-07-12 10:29 | PCM.HP ---
H&P History of Present Illness - General Date of Service: 07/12/18 Admit Problem/Dx: Constipation Source of Information: Patient, Family, Old Records, Provider (HAIR Springer (ED provider)), RN Notes Reviewed History Limitations: Reports: No Limitations - History of Present Illness Initial Comments - Free Text/Narative: Mrs. Perla reports a several decade history of back pain and spasms for which she is managed by the [facility] with most recent visit on 07/02/17 with RFA. On the day of ED evaluation, she states that she also began having mid epigastric pain that went into the RUQ. Character sharp and fullness at times. Timing comes and goes in waves. Additionally noted minimal to no ostomy intake over the prior day. Associated decreased appetite. No medication changes recently. No alleviating factors. No hx of similar pain, though when prompted she says she does feel bloated when she gets constipated and this feels similar. Other sx per ROS. Bilateral Middle Back Pain Score (Numeric/FACES): 4 - Related Data Allergies/Adverse Reactions: Allergies Allergy/AdvReac Type Severity Reaction Status Date / Time penicillamine Allergy Severe Anaphylactic Verified 07/11/18 12:13 Shock Penicillins Allergy Severe Anaphylactic Verified 07/11/18 12:13 Shock Cephalosporins Allergy Unknown Cannot Verified 07/11/18 12:13 Remember aspirin Allergy Other Verified 07/11/18 12:13 Carbapenems Allergy Cannot Verified 07/11/18 12:13 Remember divalproex sodium Allergy Delusions Verified 07/11/18 12:13 [From Depakote] imipenem Allergy Cannot Verified 07/11/18 12:13 Remember Iodinated Contrast- Oral and Allergy Chest Pain Verified 07/11/18 12:13 IV Dye valproic acid Allergy Confusion Verified 07/11/18 12:13 Home Medications: Home Meds Cholecalciferol (Vitamin D3) [Vitamin D3] 1,000 unit PO DAILY@0800 09/27/13 [ History] Albuterol Sulfate [Albuterol Sulfate HFA] 2 puff INH Q4HR PRN 08/28/14 [History] Omeprazole [Prilosec] 40 mg PO ACBREAKFAST 01/20/15 [History] Venlafaxine [Effexor XR] 150 mg PO DAILY 10/15/15 [History] Docusate Sodium [Colace] 100 mg PO BID 06/27/15 [History] Albuterol [Proventil Neb Soln] 2.5 mg NEB QID PRN 02/25/16 [History] Potassium Chloride [K-Tab ER] 10 meq PO DAILY@0800 02/25/16 [History] Warfarin [Coumadin] 5 mg PO SUTUWETHSA@1800 05/11/16 [History] Dapsone 100 mg PO DAILY 06/19/16 [History] Lisinopril [Prinivil] 5 mg PO DAILY 06/19/16 [History] predniSONE [Prednisone] 10 mg PO WITHBREAKFAST 07/17/16 [History] Metoprolol Tartrate 12.5 mg PO BID 11/08/16 [History] Sotalol HCl [Sotalol] 120 mg PO DAILY #30 tablet 11/12/16 [Rx] Clindamycin HCl 600 mg PO ASDIRECTED PRN 01/16/17 [History] Ondansetron [Zofran] 4 mg PO Q4H PRN 01/16/17 [History] Warfarin [Coumadin] 2.5 mg PO MOFR@1800 01/16/17 [History] Roflumilast [Daliresp] 500 mcg PO DAILY #30 tablet 01/20/17 [Rx] Menthol [Biofreeze] 1 applic TOP BID PRN 05/21/17 [History] Polyethylene Glycol 3350 [MiraLAX] 17 gm PO DAILY@08 05/21/17 [History] Arformoterol [Brovana] 15 mcg INH BID 08/01/17 [History] Furosemide [Lasix] 20 mg PO DAILY 12/09/17 [History] Multivitamin [Multivitamins] 1 cap PO DAILY 12/09/17 [History] Albuterol/Ipratropium [DuoNeb 3.0-0.5 MG/3 ML] 3 ml INH QID PRN 02/24/18 [ History] Denosumab [Prolia] 60 mg SUBCUT Q180D 02/24/18 [History] Tiotropium [Spiriva HandiHaler] 18 mcg INH DAILY 02/24/18 [History] atorvaSTATin [Lipitor] 40 mg PO BEDTIME 02/24/18 [History] Allopurinol [Zyloprim] 200 mg PO DAILY 05/08/18 [History] Hydrocodone/Acetaminophen [Hydrocodon-Acetaminophen 5-325] 1 - 2 tab PO Q6H PRN 05/08/18 [History] Poop Goop 1 gm TOP BID PRN 05/08/18 [History] Rup Rub 1 gm TOP BID 05/08/18 [History] Baclofen 5 mg PO TID 07/11/18 [History] Iron,Carbonyl/Ascorbic Acid [Vitron-C Tablet] 1 each PO Q48H #15 tablet. 07/12 [Rx] Iron,Carbonyl/Ascorbic Acid [Vitron-C Tablet] 1 each PO Q48H #15 tablet. 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,vasculitis Respiratory History: Reports: COPD, Pneumonia, Recurrent, SOB, Other (See Below) Other Respiratory History: pleural effusions, on home oxygen 3L at rest & 4L with activity Gastrointestinal History: Reports: Bowel Obstruction, Diverticulosis, GERD Genitourinary History: Reports: Chronic Renal Insuffiency, Renal Disease, Other (See Below) Other Genitourinary History: acquired cyst of kidney [employer] History: Reports: Other OB/BYN History: 6 daughters, live term births Musculoskeletal History: Reports: Arthritis, Back Pain, Chronic, Osteoporosis, Other (See Below) Other Musculoskeletal History: compression fracture of thoracolumbar vertebra Neurological History: Reports: Migraines Other Neuro History: new onset confusion starting 06/18/2016 Psychiatric History: Reports: Depression Endocrine/Metabolic History: Reports: Diabetes, Type II, Hypothyroidism, Osteoporosis Hematologic History: Reports: Anemia, Blood Transfusion(s) Immunologic History: Reports: Other (See Below) Other Immunologic History: chronic steroid use Oncologic (Cancer) History: Reports: Breast, Colon Dermatologic History: Reports: Venous Stasis Dermatitis, Other (See Below) Other Dermatologic History: discolored skin from chronic steroid use - Infectious Disease History Infectious Disease History: Reports: Chicken Pox, Measles, Mumps, Rheumatic Fever - Past Surgical History Head Surgeries/Procedures: Reports: None HEENT Surgical History: Reports: Cataract Surgery Cardiovascular Surgical History: Reports: Valve Replacement Respiratory Surgical History: Reports: Thoracentesis GI Surgical History: Reports: Colostomy Female Surgical History: Reports: Breast Biopsy, Mastectomy Endocrine Surgical History: Reports: None Neurological Surgical History: Reports: Laminectomy Musculoskeletal Surgical History: Reports: Other (See Below) Other Musculoskeletal Surgeries/Procedures:: spinal injections, laminectomy Oncologic Surgical History: Reports: Mastectomy Dermatological Surgical History: Reports: None Social & Family History - Family History HEENT: Reports: None Cardiac: Reports: None Respiratory: Reports: None GI: Reports: None : Reports: None OBGYN: Reports: None Musculoskeletal: Reports: None Neurological: Reports: None Psychiatric: Reports: None Endocrine/Metabolic: Reports: None Hematologic: Reports: None Immunologic: Reports: None Dermatologic: Reports: None Oncologic: Reports: Colon (father), Pancreatic (mother) Other Oncologic Family History: parents had ca - Tobacco Use Smoking Status *Q: Never Smoker - Caffeine Use Caffeine Use: Reports: Coffee - Recreational Drug Use Recreational Drug Use: No - Living Situation & Occupation Living situation: Reports: Occupation: Retired H&P Review of Systems - Review of Systems: Review Of Systems: See Below General: Reports: Weakness, Fatigue, Decreased Appetite. Denies: Fever, Chills HEENT: Denies: Headaches, Hearing Changes, Sore Throat, Vertigo Pulmonary: Reports: Shortness of Breath, Cough. Denies: Wheezing, Pleuritic Chest Pain, Hemoptysis Cardiovascular: Denies: Chest Pain, Edema, Lightheadedness, Syncope Gastrointestinal: Reports: Abdominal Pain, Constipation, Decreased Appetite, Nausea Genitourinary: Denies: Dysuria, Frequency, Burning, Pain Musculoskeletal: Reports: Neck Pain, Shoulder Pain Skin: Denies: Cyanosis, Jaundice, Rash Psychiatric: Denies: Confusion, Depression, Anxiety Neurological: Reports: Gait Disturbance (ambulates with walker). Denies: Headache, Numbness, Tingling Hematologic/Lymphatic: Reports: Easy Bleeding, Easy Bruising. Denies: Swollen Glands Exam - Exam Exam: See Below - Vital Signs Vital Signs: Last Vital Signs Temp 36.7 C 07/12/18 06:09 Pulse 68 07/12/18 10:06 Resp 16 07/12/18 06:09 BP 163/61 H 07/12/18 08:14 Pulse Ox 93 L 07/12/18 10:06 Weight: 53.433 kg - Exam Physical Exam Comments:: GENERAL: Elderly white female appearing stated age or slightly older lying in hospital bed in no acute distress. HEENT: Normocephalic, atraumatic. Conjunctiva clear. Nares patent without discharge. Mucous membranes moist, posterior pharynx unremarkable. NECK: Supple, no masses. CV: Regular rate and rhythm, 2/6 systolic murmur loudest at LUSB, no rubs or gallops. 2+ radial pulses. PULMONARY: Normal effort, clear to auscultation bilaterally, no wheezes, rales, or rhonchi. ABDOMEN: Positive bowel sounds, soft, nontender, nondistended. EXTREMITIES: No edema. MUSCULOSKELETAL: Moves all extremities well. NEUROLOGICAL: No obvious deficits. DERMATOLOGIC: No rashes or suspicious lesions in exposed areas. PSYCHIATRIC: Alert, interactive, appropriate affect. - Patient Data Lab Results Last 24 hrs: Laboratory Results - last 24 hr 07/11/18 07/11/18 07/11/18 Range/Units 11:56 11:56 11:56 WBC 9.53 (5.00-10.00) 10^3/uL RBC 2.56 L (3.80-5.50) 10^6/uL Hgb 9.6 L (12.0-16.0) g/dL Hct 30.5 L (37.0-47.0) % MCV 119.1 H (82.0-92.0) fL MCH 37.5 H (27.0-31.0) pg MCHC 31.5 L (32.0-36.0) g/dL RDW 15.7 H (11.5-14.5) % Plt Count 134 L (150-400) 10^3/uL MPV 11.8 H (7.4-10.4) fL Immature Gran % (Auto) 0.5 (0.0-5.0) % Neut % (Auto) 65.1 (50.0-70.0) % Lymph % (Auto) 25.2 (20.0-40.0) % [place] % (Auto) 7.6 (2.0-8.0) % Eos % (Auto) 1.2 (1.0-3.0) % Baso % (Auto) 0.4 (0.0-1.0) % Immature Gran # (Auto) 0.05 (0.00-0.50) 10^3/uL Neut # (Auto) 6.21 (2.50-7.00) 10^3/uL Lymph # (Auto) 2.40 (1.00-4.00) 10^3/uL [place] # (Auto) 0.72 (0.10-0.80) 10^3/uL Eos # (Auto) 0.11 (0.10-0.30) 10^3/uL Baso # (Auto) 0.04 (0.00-0.10) 10^3/uL PT 14.5 H D (8.9-11.4) SEC INR 1.4 H (0.9-1.1) Sodium 148 H (136-145) mmol/L Potassium 3.4 (3.3-5.3) mmol/L Chloride 106 (98-115) mmol/L Carbon Dioxide 30.7 (21.0-32.0) mmol/L Anion Gap 14.7 (5-15) mmol/L BUN 21 (6-25) mg/dL Creatinine 1.00 (0.51-1.17) mg/dL Est Cr Clr Drug Dosing 31.69 mL/min Estimated GFR (MDRD) 53 mL/min Glucose 173 H (75 - 99) mg/dL Calcium 9.2 (8.7-10.3) mg/dL Total Bilirubin 0.8 (0.2-1.0) mg/dL AST 19 (15-37) U/L ALT 19 (12-78) U/L Alkaline Phosphatase 63 (46-116) IU/L Total Protein 5.3 L (6.4-8.2) g/dL Albumin 3.11 (3.00-4.80) g/dL Lipase 171 (73-393) U/L TSH, Ultra Sensitive (0.340-4.820) uIU/mL Specimen Type Urine Color (YELLOW) Urine Appearance (CLEAR) Urine pH (5.0-9.0) Ur Specific [place] (1.005-1.030) Urine Protein (NEGATIVE) mg/dL Urine Glucose (UA) (NEGATIVE) mg/dL Urine Ketones (NEGATIVE) mg/dL Urine Occult Blood (NEGATIVE) Urine Nitrite (NEGATIVE) Urine Bilirubin (NEGATIVE) Urine Urobilinogen (0.2-1.0) E.U./dL Ur Leukocyte Esterase (NEGATIVE) Urine RBC (0-5) /HPF Urine WBC (0-5) /HPF Ur Epithelial Cells /LPF Urine Bacteria (NONE TO FEW) /HPF Hyaline Casts (NEGATIVE) /LPF Urine Mucus (NEGATIVE) /LPF 07/11/18 07/11/18 07/12/18 Range/Units 11:56 13:30 07:15 WBC (5.00-10.00) 10^3/uL RBC (3.80-5.50) 10^6/uL Hgb (12.0-16.0) g/dL Hct (37.0-47.0) % MCV (82.0-92.0) fL MCH (27.0-31.0) pg MCHC (32.0-36.0) g/dL RDW (11.5-14.5) % Plt Count (150-400) 10^3/uL MPV (7.4-10.4) fL Immature Gran % (Auto) (0.0-5.0) % Neut % (Auto) (50.0-70.0) % Lymph % (Auto) (20.0-40.0) % [place] % (Auto) (2.0-8.0) % Eos % (Auto) (1.0-3.0) % Baso % (Auto) (0.0-1.0) % Immature Gran # (Auto) (0.00-0.50) 10^3/uL Neut # (Auto) (2.50-7.00) 10^3/uL Lymph # (Auto) (1.00-4.00) 10^3/uL [place] # (Auto) (0.10-0.80) 10^3/uL Eos # (Auto) (0.10-0.30) 10^3/uL Baso # (Auto) (0.00-0.10) 10^3/uL PT (8.9-11.4) SEC INR (0.9-1.1) Sodium 147 H (136-145) mmol/L Potassium 3.9 (3.3-5.3) mmol/L Chloride 107 (98-115) mmol/L Carbon Dioxide 34.0 H (21.0-32.0) mmol/L Anion Gap 9.9 (5-15) mmol/L BUN 18 (6-25) mg/dL Creatinine 0.97 (0.51-1.17) mg/dL Est Cr Clr Drug Dosing 32.67 mL/min Estimated GFR (MDRD) 55 mL/min Glucose 101 H (75 - 99) mg/dL Calcium 8.7 (8.7-10.3) mg/dL Total Bilirubin 0.8 (0.2-1.0) mg/dL AST 29 (15-37) U/L ALT 29 (12-78) U/L Alkaline Phosphatase 71 (46-116) IU/L Total Protein 5.2 L (6.4-8.2) g/dL Albumin 3.16 (3.00-4.80) g/dL Lipase (73-393) U/L TSH, Ultra Sensitive 44.290 H (0.340-4.820) uIU/mL Specimen Type Urincc Urine Color Dark yellow H (YELLOW) Urine Appearance Slightly cloudy H (CLEAR) Urine pH 5.5 (5.0-9.0) Ur Specific [place] 1.015 (1.005-1.030) Urine Protein 100 H (NEGATIVE) mg/dL Urine Glucose (UA) Negative (NEGATIVE) mg/dL Urine Ketones Negative (NEGATIVE) mg/dL Urine Occult Blood Trace-intact H (NEGATIVE) Urine Nitrite Negative (NEGATIVE) Urine Bilirubin Small H (NEGATIVE) Urine Urobilinogen 0.2 (0.2-1.0) E.U./dL Ur Leukocyte Esterase Negative (NEGATIVE) Urine RBC 0-5 (0-5) /HPF Urine WBC 5-10 H (0-5) /HPF Ur Epithelial Cells Moderate H /LPF Urine Bacteria Occasional (NONE TO FEW) /HPF Hyaline Casts Few H (NEGATIVE) /LPF Urine Mucus Moderate H (NEGATIVE) /LPF 07/12/18 Range/Units 07:15 WBC (5.00-10.00) 10^3/uL RBC (3.80-5.50) 10^6/uL Hgb (12.0-16.0) g/dL Hct (37.0-47.0) % MCV (82.0-92.0) fL MCH (27.0-31.0) pg MCHC (32.0-36.0) g/dL RDW (11.5-14.5) % Plt Count (150-400) 10^3/uL MPV (7.4-10.4) fL Immature Gran % (Auto) (0.0-5.0) % Neut % (Auto) (50.0-70.0) % Lymph % (Auto) (20.0-40.0) % [place] % (Auto) (2.0-8.0) % Eos % (Auto) (1.0-3.0) % Baso % (Auto) (0.0-1.0) % Immature Gran # (Auto) (0.00-0.50) 10^3/uL Neut # (Auto) (2.50-7.00) 10^3/uL Lymph # (Auto) (1.00-4.00) 10^3/uL [place] # (Auto) (0.10-0.80) 10^3/uL Eos # (Auto) (0.10-0.30) 10^3/uL Baso # (Auto) (0.00-0.10) 10^3/uL PT 12.7 H (8.9-11.4) SEC INR 1.3 H (0.9-1.1) Sodium (136-145) mmol/L Potassium (3.3-5.3) mmol/L Chloride (98-115) mmol/L Carbon Dioxide (21.0-32.0) mmol/L Anion Gap (5-15) mmol/L BUN (6-25) mg/dL Creatinine (0.51-1.17) mg/dL Est Cr Clr Drug Dosing mL/min Estimated GFR (MDRD) mL/min Glucose (75 - 99) mg/dL Calcium (8.7-10.3) mg/dL Total Bilirubin (0.2-1.0) mg/dL AST (15-37) U/L ALT (12-78) U/L Alkaline Phosphatase (46-116) IU/L Total Protein (6.4-8.2) g/dL Albumin (3.00-4.80) g/dL Lipase (73-393) U/L TSH, Ultra Sensitive (0.340-4.820) uIU/mL Specimen Type Urine Color (YELLOW) Urine Appearance (CLEAR) Urine pH (5.0-9.0) Ur Specific [place] (1.005-1.030) Urine Protein (NEGATIVE) mg/dL Urine Glucose (UA) (NEGATIVE) mg/dL Urine Ketones (NEGATIVE) mg/dL Urine Occult Blood (NEGATIVE) Urine Nitrite (NEGATIVE) Urine Bilirubin (NEGATIVE) Urine Urobilinogen (0.2-1.0) E.U./dL Ur Leukocyte Esterase (NEGATIVE) Urine RBC (0-5) /HPF Urine WBC (0-5) /HPF Ur Epithelial Cells /LPF Urine Bacteria (NONE TO FEW) /HPF Hyaline Casts (NEGATIVE) /LPF Urine Mucus (NEGATIVE) /LPF Result Diagrams: 07/11/18 11:56 07/12/18 07:15 Problem List Initiated/Reviewed/Updated: Yes Orders Last 24hrs: Active Orders 24 hr Category Date Time Status Patient Status [ADT] Routine ADT 07/11/18 14:26 Ordered Intake and Output [RC] 1400,2200,0600 Care 07/11/18 17:02 Active Oxygen Therapy [RC] 0300,0700,1100,1500,1900,2300 Care 07/11/18 17:02 Active Ready for Discharge [RC] PER UNIT ROUTINE Care 07/12/18 10:12 Active Up With Assistance [RC] DAILY Care 07/11/18 17:01 Active Vital Signs [RC] 1900,2300,0300,0700,1100,1500 Care 07/11/18 17:01 Active Heart Healthy Diet [DIET] Diet 07/11/18 Dinner Active FOLATE [REF] Routine Lab 07/11/18 11:56 Received IRON PNL (FE, TIBC, JEREMÍAS, %SAT) [REF] Routine Lab 07/11/18 11:56 Received VITAMIN B12 [REF] Routine Lab 07/11/18 11:56 Received Acetaminophen [Tylenol] Med 07/11/18 17:01 Active 650 mg PO Q4H PRN Acetaminophen/HYDROcodone [[place] 325-5 MG] Med 07/11/18 17:13 Active 1 - 2 tab PO Q6H PRN Albuterol Med 07/11/18 17:13 Pending 2 puff INH Q4HR PRN Albuterol [Proventil Neb Soln] Med 07/11/18 17:13 Active 2.5 mg NEB QID PRN Albuterol/Ipratropium [DuoNeb 3.0-0.5 MG/3 ML] Med 07/11/18 17:13 Active 3 ml INH QID PRN Allopurinol [Zyloprim] Med 07/12/18 09:00 Active 200 mg PO DAILY Baclofen [Lioresal] Med 07/11/18 21:00 Active 5 mg PO TID Cholecalciferol (Vitamin D3) [Vitamin D3] Med 07/12/18 08:00 Active 1,000 units PO DAILY@0800 Dapsone Med 07/12/18 09:00 Active 100 mg PO DAILY Docusate Sodium [Colace] Med 07/12/18 09:00 Active 100 mg PO BID Furosemide [Lasix] Med 07/12/18 09:00 Active 20 mg PO DAILY Iron,Carbonyl/Ascorbic Acid [Vitron-C Tablet] Med 07/12/18 08:00 Pending 1 each PO Q48H Levothyroxine [Synthroid] Med 07/12/18 07:30 Active 88 mcg PO ACBREAKFAST Lisinopril [Prinivil] Med 07/12/18 09:00 Active 5 mg PO DAILY Menthol [Biofreeze] Med 07/11/18 17:13 Pending 1 applic TOP BID PRN Metoprolol Tartrate [Lopressor] Med 07/11/18 21:00 Active 12.5 mg PO BID Omeprazole Med 07/12/18 07:30 Active 40 mg PO ACBREAKFAST Patient's Own Medication [Ptom] Med 07/12/18 09:30 Active 1 each INH BIDRT Patient's Own Medication [Ptom] Med 07/12/18 09:00 Active 1 each INH DAILY Patient's Own Medication [Ptom] Med 07/12/18 09:00 Active 1 each TOP BID Polyethylene Glycol 3350 [MiraLAX] Med 07/12/18 08:00 Active 17 gm PO DAILY@08 Potassium Chloride [Klor-Con 10] Med 07/12/18 08:00 Active 10 meq PO DAILY@0800 Roflumilast [Daliresp] Med 07/12/18 09:00 Active 500 mcg PO DAILY Sodium Chloride 0.9% [Saline Flush] Med 07/12/18 05:20 Active 10 ml FLUSH Q8HR PRN Sotalol [Betapace] Med 07/12/18 09:00 Active 120 mg PO DAILY Venlafaxine [Effexor XR] Med 07/12/18 09:00 Active 150 mg PO DAILY Warfarin [Coumadin] Med 07/12/18 18:00 Active 2.5 mg PO MOFR@1800 Warfarin [Coumadin] Med 07/11/18 18:00 Active 5 mg PO SUTUWETHSA@1800 atorvaSTATin [Lipitor] Med 07/11/18 21:00 Active 40 mg PO BEDTIME diazePAM [Valium] Med 07/11/18 17:32 Active 5 mg PO Q6H PRN predniSONE Med 07/12/18 08:00 Active 10 mg PO WITHBREAKFAST Saline Lock Insert [OM.PC] Routine Oth 07/12/18 05:20 Ordered Medication Orders Acetaminophen (Tylenol) 650 mg PO Q4H PRN PRN Reason: analgesia/fever Hydrocodone Bitart/Acetaminophen ([place] 325-5 Mg) 1 - 2 tab PO Q6H PRN PRN Reason: Pain Last Admin: 07/12/18 05:15 Dose: 2 tab Admin: 07/11/18 22:41 Dose: 2 tab Albuterol (Proventil Neb Soln) 2.5 mg NEB QID PRN PRN Reason: Shortness of Breath Albuterol/Ipratropium (Duoneb 3.0-0.5 Mg/3 Ml) 3 ml INH QID PRN PRN Reason: Shortness of Breath Allopurinol (Zyloprim) 200 mg PO DAILY [facility] Last Admin: 07/12/18 08:14 Dose: 200 mg Atorvastatin Calcium (Lipitor) 40 mg PO BEDTIME [facility] Last Admin: 07/11/18 21:35 Dose: 40 mg Baclofen (Lioresal) 5 mg PO TID [facility] Last Admin: 07/12/18 08:12 Dose: 5 mg Admin: 07/11/18 21:35 Dose: 5 mg Cholecalciferol (Vitamin D3) 1,000 units PO DAILY@0800 [facility] Last Admin: 07/12/18 08:11 Dose: 1,000 units Dapsone (Dapsone) 100 mg PO DAILY [facility] Last Admin: 07/12/18 10:10 Dose: Diazepam (Valium.) 5 mg PO Q6H PRN PRN Reason: Spasms Last Admin: 07/11/18 18:18 Dose: 5 mg Docusate Sodium (Colace) 100 mg PO BID [facility] Last Admin: 07/12/18 08:10 Dose: 100 mg Furosemide (Lasix) 20 mg PO DAILY [facility] Last Admin: 07/12/18 08:11 Dose: 20 mg Levothyroxine Sodium (Synthroid) 88 mcg PO ACBREAKFAST [facility] Last Admin: 07/12/18 07:41 Dose: 88 mcg Lisinopril (Prinivil) 5 mg PO DAILY [facility] Last Admin: 07/12/18 08:11 Dose: 5 mg Metoprolol Tartrate (Lopressor) 12.5 mg PO BID [facility] Last Admin: 07/12/18 08:14 Dose: 12.5 mg Admin: 07/11/18 21:35 Dose: 12.5 mg Non-Formulary Medication (Albuterol) 2 puff INH Q4HR PRN PRN Reason: Shortness of Breath Non-Formulary Medication (Iron,Carbonyl/Ascorbic Acid [Vitron-C Tablet]) 1 each PO Q48H [facility] Non-Formulary Medication (Menthol [Biofreeze]) 1 applic TOP BID PRN PRN Reason: Pain Omeprazole (Omeprazole) 40 mg PO ACBREAKFAST [facility] Last Admin: 07/12/18 07:41 Dose: 40 mg Tiotropium Inhaler 18 Mcg Inhalation Powder Cap 1 each INH DAILY [facility] Last Admin: 07/12/18 10:06 Dose: 1 each Ptom Rup Rub Cream 1 each TOP BID [facility] Last Admin: 07/12/18 08:47 Dose: 1 each Arformoterol 15 Mcg/ (2 Ml Neb Soln) 1 each INH BIDRT [facility] Last Admin: 07/12/18 09:52 Dose: Polyethylene Glycol (Miralax) 17 gm PO DAILY@08 [facility] Last Admin: 07/12/18 08:08 Dose: 17 gm Potassium Chloride (Klor-Con 10) 10 meq PO DAILY@0800 [facility] Last Admin: 07/12/18 08:14 Dose: 10 meq Prednisone (Prednisone) 10 mg PO WITHBREAKFAST [facility] Last Admin: 07/12/18 08:10 Dose: 10 mg Roflumilast (Daliresp) 500 mcg PO DAILY [facility] Last Admin: 07/12/18 08:14 Dose: 500 mcg Sodium Chloride (Saline Flush) 10 ml FLUSH Q8HR PRN PRN Reason: keep vein open Last Admin: 07/12/18 07:13 Dose: 10 ml Sotalol HCl (Betapace) 120 mg PO DAILY [facility] Last Admin: 07/12/18 08:11 Dose: 120 mg Venlafaxine HCl (Effexor Xr) 150 mg PO DAILY [facility] Last Admin: 07/12/18 08:11 Dose: 150 mg Warfarin Sodium (Coumadin) 5 mg PO SUTUWETHSA@1800 [facility] Last Admin: 07/11/18 18:18 Dose: 5 mg Warfarin Sodium (Coumadin) 2.5 mg PO MOFR@1800 [facility] Assessment/Plan Comment:: HPI summary: 83yoF with a history notable for chronic low back pain and spasm on chronic opiate therapy and followed by interventional pain management, colostomy status following partial colectomy following episode of diverticulitis in 2014, and recurrent SBO most recently in 04/2017, who had increasing abdominal and back pain on 07/11/18 for which she reported to the [facility] Emergency Department for further evaluation. ED course: VS unremarkable and CBC/CMP with only chronic abnormalities. CT abdomen/pelvis showed large stool burden and no other acute processes. She was given a dose of hydromorphone and cyclobenzaprine with minimal improvement. Due to large stool burden and poor pain control, she was admitted for observation for management and close monitoring. Hospital course: Following acceptance of admission, reviewed outpatient and emergency department data and added the further diagnostic work-up with TSH, B12 , folate, and iron studies, and initiated magnesium citrate for significant stool burden. She subsequently had excellent response and resolution of abdominal pain. Chronic back pain and spasm at baseline. Hospitalization problems: # Abdominal pain # Constipation # Hypothyroidism, uncontrolled # Iron deficiency anemia # Chronic back pain # Chronic opiate use Pain and constipation resolved following magnesium citrate initiation. Continue with Miralax and docusate regimen, titrated to soft stools. Etiology of recent worsening likely related to uncontrolled hypothyroidism for which TSH noted to be elevated at 44 and levothyroxine increased from 50mcg to 88mcg daily. Constipation also affected by twice daily iron administration which she states makes her nauseated for which iron regimen changed to every other day administration in order to improve toleration and absorption given recent studies showing improved absorption with every other day instead of more frequent administration. Additionally, constipation also affected by chronic opiate use for her back pain; consider opiate antagonists in the future if bulk and osmotic agents unsuccessful. # Atrial fibrillation, rhythm controlled on sotalol # Hx TAVR # Subtherapeutic INR Warfarin 5mg given. Follow-up with [facility] for ongoing monitoring and adjustments. # Macrocytosis No recent B12 or folate, so theses were obtained along with iron panel given history of iron deficiency on supplementation, as detailed above. Chronic, stable medical conditions: # COPD: Stable. Continue baseline oxygen, Pulmicort, Daliresp, Spiriva, and prn albuterol. # CAD/HFpEF/HTN/HLD: Currently asymptomatic with slightly fluid depleted status. Hold bumetanide/KCl tonight. Continue metoprolol and lisinopril. Hold statin in setting of SBO. # GERD: Stable. Continue PPI. # Suyapa's granulomatosis: Stable. Continue dapsone and prednisone. # Chronic back pain: Stable. Continue [place] prn and baclofen TID. # Depression: Stable. Continue Effexor. Hospitalization details: # FEN: No IVF. Electrolytes at baseline. Regular diet as tolerated. # PPX: Enoxaparin given subtherapeutic INR if stays beyond 24hrs. # Code status: DNR/DNI. # Emergency contact: , who was updated at bedside. # Disposition: Admit to observation status.
--- NOTE | 2018-07-12 10:40 | PCM.DCSUM1 ---
Discharge Summary - Hospital Course Free Text/Narrative:: Date of admission: 07/11/18 Date of discharge: 07/12/18 Admission diagnoses: # Abdominal pain # Constipation # Hypothyroidism, uncontrolled # Iron deficiency anemia # Chronic back pain # Chronic opiate use # Atrial fibrillation, rhythm controlled on sotalol # Hx TAVR # Subtherapeutic INR # Macrocytosis Discharge diagnoses: # Abdominal pain, resolved # Constipation, resolved # Hypothyroidism, uncontrolled # Iron deficiency anemia # Chronic back pain # Chronic opiate use # Atrial fibrillation, rhythm controlled on sotalol # Hx TAVR # Subtherapeutic INR # Macrocytosis Consultations: None Procedures: None HPI summary: 83yoF with a history notable for chronic low back pain and spasm on chronic opiate therapy and followed by interventional pain management, colostomy status following partial colectomy following episode of diverticulitis in 2014, and recurrent SBO most recently in 04/2017, who had increasing abdominal and back pain on 07/11/18 for which she reported to the [facility] Emergency Department for further evaluation. ED course: VS unremarkable and CBC/CMP with only chronic abnormalities. CT abdomen/pelvis showed large stool burden and no other acute processes. She was given a dose of hydromorphone and cyclobenzaprine with minimal improvement. Due to large stool burden and poor pain control, she was admitted for observation for management and close monitoring. Hospital course: Following acceptance of admission, reviewed outpatient and emergency department data and added the further diagnostic work-up with TSH, B12 , folate, and iron studies, and initiated magnesium citrate for significant stool burden. Pain and constipation resolved following magnesium citrate initiation. Etiology of recent worsening likely related to uncontrolled hypothyroidism for which TSH noted to be elevated at 44 and levothyroxine increased from 50mcg to 88mcg daily. Constipation also affected by twice daily iron administration which she states makes her nauseated for which iron regimen changed to every other day administration in order to improve toleration and absorption given recent studies showing improved absorption with every other day instead of more frequent administration. Additionally, constipation also affected by chronic opiate use for her back pain; consider opiate antagonists in the future if bulk and osmotic agents unsuccessful. Chronic back pain and spasm at baseline. Given no other concerns arising, she was deemed ready for discharge back to home with the following medication changes: - Miralax and docusate titrated to soft ostomy output - Levothyroxine 88mcg (up from 50mcg) - Iron-vitamin C every other day (down from BID) - Warfarin adjustment per [facility], which was updated with hospitalization INRs She was instructed to follow-up at [facility] in 7-10 days. Follow-up items: - Review B12, folate, and iron studies, which are still pending. - Repeat TSH in 6wks (August), which is ordered. - Discharge Data Discharge Date: 07/12/18 Discharge Disposition: Home, Self-Care 01 Condition: Fair - Patient Instructions Diet: Usual Diet as Tolerated Activity: As Tolerated Notify Provider of: Fever, Increased Pain, Nausea and/or Vomiting - Discharge Plan *PRESCRIPTION DRUG MONITORING PROGRAM REVIEWED*: Not Applicable *COPY OF PRESCRIPTION DRUG MONITORING REPORT IN PATIENT JACKI: Not Applicable Prescriptions/Med Rec: Iron,Carbonyl/Ascorbic Acid [Vitron-C Tablet] 1 each PO Q48H #15 tablet. Iron,Carbonyl/Ascorbic Acid [Vitron-C Tablet] 1 each PO Q48H #15 tablet. Levothyroxine [Synthroid] 88 mcg PO ACBREAKFAST #30 tablet Levothyroxine [Synthroid] 88 mcg PO DAILY #30 tablet Home Medications: Home Meds Cholecalciferol (Vitamin D3) [Vitamin D3] 1,000 unit PO DAILY@0800 09/27/13 [ History] Albuterol Sulfate [Albuterol Sulfate HFA] 2 puff INH Q4HR PRN 08/28/14 [History] Omeprazole [Prilosec] 40 mg PO ACBREAKFAST 01/20/15 [History] Venlafaxine [Effexor XR] 150 mg PO DAILY 04/12/15 [History] Docusate Sodium [Colace] 100 mg PO BID 06/27/15 [History] Albuterol [Proventil Neb Soln] 2.5 mg NEB QID PRN 02/25/16 [History] Potassium Chloride [K-Tab ER] 10 meq PO DAILY@0800 02/25/16 [History] Warfarin [Coumadin] 5 mg PO SUTUWETHSA@1800 05/11/16 [History] Dapsone 100 mg PO DAILY 06/19/16 [History] Lisinopril [Prinivil] 5 mg PO DAILY 06/19/16 [History] predniSONE [Prednisone] 10 mg PO WITHBREAKFAST 07/17/16 [History] Metoprolol Tartrate 12.5 mg PO BID 11/08/16 [History] Sotalol HCl [Sotalol] 120 mg PO DAILY #30 tablet 11/12/16 [Rx] Clindamycin HCl 600 mg PO ASDIRECTED PRN 01/16/17 [History] Ondansetron [Zofran] 4 mg PO Q4H PRN 01/16/17 [History] Warfarin [Coumadin] 2.5 mg PO MOFR@1800 01/16/17 [History] Roflumilast [Daliresp] 500 mcg PO DAILY #30 tablet 01/20/17 [Rx] Menthol [Biofreeze] 1 applic TOP BID PRN 05/21/17 [History] Polyethylene Glycol 3350 [MiraLAX] 17 gm PO DAILY@08 05/21/17 [History] Arformoterol [Brovana] 15 mcg INH BID 08/01/17 [History] Furosemide [Lasix] 20 mg PO DAILY 12/09/17 [History] Multivitamin [Multivitamins] 1 cap PO DAILY 12/09/17 [History] Albuterol/Ipratropium [DuoNeb 3.0-0.5 MG/3 ML] 3 ml INH QID PRN 02/24/18 [ History] Denosumab [Prolia] 60 mg SUBCUT Q180D 02/24/18 [History] Tiotropium [Spiriva HandiHaler] 18 mcg INH DAILY 02/24/18 [History] atorvaSTATin [Lipitor] 40 mg PO BEDTIME 02/24/18 [History] Allopurinol [Zyloprim] 200 mg PO DAILY 05/08/18 [History] Hydrocodone/Acetaminophen [Hydrocodon-Acetaminophen 5-325] 1 - 2 tab PO Q6H PRN 05/08/18 [History] Poop Goop 1 gm TOP BID PRN 05/08/18 [History] Rup Rub 1 gm TOP BID 05/08/18 [History] Baclofen 5 mg PO TID 07/11/18 [History] Iron,Carbonyl/Ascorbic Acid [Vitron-C Tablet] 1 each PO Q48H #15 tablet. 07/12 [Rx] Iron,Carbonyl/Ascorbic Acid [Vitron-C Tablet] 1 each PO Q48H #15 tablet. 07/12 [Rx] Levothyroxine [Synthroid] 88 mcg PO ACBREAKFAST #30 tablet 07/12/18 [Rx] Levothyroxine [Synthroid] 88 mcg PO DAILY #30 tablet 07/12/18 [Rx] Referrals: Solomon Strong, [facility] [Primary Care Provider] - (or with JEFF Snow CNP, in 7-10 days) - Discharge Summary/Plan Comment DC Time >30 min.: Yes (Same day admission/discharge.) - General Info Date of Service: 07/12/18 Admission Dx/Problem (Free Text: She reports resolution of abdominal pain since admission. At baseline back pain. No new concerns. Tolerating baseline medications without difficulty aside from iron supplementation as discussed in H&P. - Patient Data Vitals - Most Recent: Last Vital Signs Temp 36.7 C 07/12/18 06:09 Pulse 68 07/12/18 10:06 Resp 16 07/12/18 06:09 BP 163/61 H 07/12/18 08:14 Pulse Ox 93 L 07/12/18 10:06 Weight - Most Recent: 53.433 kg I&O - Last 24 hours: Intake & Output 07/11/18 07/12/18 07/12/18 22:59 06:59 14:59 Intake Total 150 Output Total 500 Balance -350 Lab Results - Last 24 hrs: Laboratory Results - last 24 hr 07/11/18 07/11/18 07/11/18 Range/Units 11:56 11:56 11:56 WBC 9.53 (5.00-10.00) 10^3/uL RBC 2.56 L (3.80-5.50) 10^6/uL Hgb 9.6 L (12.0-16.0) g/dL Hct 30.5 L (37.0-47.0) % MCV 119.1 H (82.0-92.0) fL MCH 37.5 H (27.0-31.0) pg MCHC 31.5 L (32.0-36.0) g/dL RDW 15.7 H (11.5-14.5) % Plt Count 134 L (150-400) 10^3/uL MPV 11.8 H (7.4-10.4) fL Immature Gran % (Auto) 0.5 (0.0-5.0) % Neut % (Auto) 65.1 (50.0-70.0) % Lymph % (Auto) 25.2 (20.0-40.0) % [place] % (Auto) 7.6 (2.0-8.0) % Eos % (Auto) 1.2 (1.0-3.0) % Baso % (Auto) 0.4 (0.0-1.0) % Immature Gran # (Auto) 0.05 (0.00-0.50) 10^3/uL Neut # (Auto) 6.21 (2.50-7.00) 10^3/uL Lymph # (Auto) 2.40 (1.00-4.00) 10^3/uL [place] # (Auto) 0.72 (0.10-0.80) 10^3/uL Eos # (Auto) 0.11 (0.10-0.30) 10^3/uL Baso # (Auto) 0.04 (0.00-0.10) 10^3/uL PT 14.5 H D (8.9-11.4) SEC INR 1.4 H (0.9-1.1) Sodium 148 H (136-145) mmol/L Potassium 3.4 (3.3-5.3) mmol/L Chloride 106 (98-115) mmol/L Carbon Dioxide 30.7 (21.0-32.0) mmol/L Anion Gap 14.7 (5-15) mmol/L BUN 21 (6-25) mg/dL Creatinine 1.00 (0.51-1.17) mg/dL Est Cr Clr Drug Dosing 31.69 mL/min Estimated GFR (MDRD) 53 mL/min Glucose 173 H (75 - 99) mg/dL Calcium 9.2 (8.7-10.3) mg/dL Total Bilirubin 0.8 (0.2-1.0) mg/dL AST 19 (15-37) U/L ALT 19 (12-78) U/L Alkaline Phosphatase 63 (46-116) IU/L Total Protein 5.3 L (6.4-8.2) g/dL Albumin 3.11 (3.00-4.80) g/dL Lipase 171 (73-393) U/L TSH, Ultra Sensitive (0.340-4.820) uIU/mL Specimen Type Urine Color (YELLOW) Urine Appearance (CLEAR) Urine pH (5.0-9.0) Ur Specific [place] (1.005-1.030) Urine Protein (NEGATIVE) mg/dL Urine Glucose (UA) (NEGATIVE) mg/dL Urine Ketones (NEGATIVE) mg/dL Urine Occult Blood (NEGATIVE) Urine Nitrite (NEGATIVE) Urine Bilirubin (NEGATIVE) Urine Urobilinogen (0.2-1.0) E.U./dL Ur Leukocyte Esterase (NEGATIVE) Urine RBC (0-5) /HPF Urine WBC (0-5) /HPF Ur Epithelial Cells /LPF Urine Bacteria (NONE TO FEW) /HPF Hyaline Casts (NEGATIVE) /LPF Urine Mucus (NEGATIVE) /LPF 07/11/18 07/11/18 07/12/18 Range/Units 11:56 13:30 07:15 WBC (5.00-10.00) 10^3/uL RBC (3.80-5.50) 10^6/uL Hgb (12.0-16.0) g/dL Hct (37.0-47.0) % MCV (82.0-92.0) fL MCH (27.0-31.0) pg MCHC (32.0-36.0) g/dL RDW (11.5-14.5) % Plt Count (150-400) 10^3/uL MPV (7.4-10.4) fL Immature Gran % (Auto) (0.0-5.0) % Neut % (Auto) (50.0-70.0) % Lymph % (Auto) (20.0-40.0) % [place] % (Auto) (2.0-8.0) % Eos % (Auto) (1.0-3.0) % Baso % (Auto) (0.0-1.0) % Immature Gran # (Auto) (0.00-0.50) 10^3/uL Neut # (Auto) (2.50-7.00) 10^3/uL Lymph # (Auto) (1.00-4.00) 10^3/uL [place] # (Auto) (0.10-0.80) 10^3/uL Eos # (Auto) (0.10-0.30) 10^3/uL Baso # (Auto) (0.00-0.10) 10^3/uL PT (8.9-11.4) SEC INR (0.9-1.1) Sodium 147 H (136-145) mmol/L Potassium 3.9 (3.3-5.3) mmol/L Chloride 107 (98-115) mmol/L Carbon Dioxide 34.0 H (21.0-32.0) mmol/L Anion Gap 9.9 (5-15) mmol/L BUN 18 (6-25) mg/dL Creatinine 0.97 (0.51-1.17) mg/dL Est Cr Clr Drug Dosing 32.67 mL/min Estimated GFR (MDRD) 55 mL/min Glucose 101 H (75 - 99) mg/dL Calcium 8.7 (8.7-10.3) mg/dL Total Bilirubin 0.8 (0.2-1.0) mg/dL AST 29 (15-37) U/L ALT 29 (12-78) U/L Alkaline Phosphatase 71 (46-116) IU/L Total Protein 5.2 L (6.4-8.2) g/dL Albumin 3.16 (3.00-4.80) g/dL Lipase (73-393) U/L TSH, Ultra Sensitive 44.290 H (0.340-4.820) uIU/mL Specimen Type Urincc Urine Color Dark yellow H (YELLOW) Urine Appearance Slightly cloudy H (CLEAR) Urine pH 5.5 (5.0-9.0) Ur Specific [place] 1.015 (1.005-1.030) Urine Protein 100 H (NEGATIVE) mg/dL Urine Glucose (UA) Negative (NEGATIVE) mg/dL Urine Ketones Negative (NEGATIVE) mg/dL Urine Occult Blood Trace-intact H (NEGATIVE) Urine Nitrite Negative (NEGATIVE) Urine Bilirubin Small H (NEGATIVE) Urine Urobilinogen 0.2 (0.2-1.0) E.U./dL Ur Leukocyte Esterase Negative (NEGATIVE) Urine RBC 0-5 (0-5) /HPF Urine WBC 5-10 H (0-5) /HPF Ur Epithelial Cells Moderate H /LPF Urine Bacteria Occasional (NONE TO FEW) /HPF Hyaline Casts Few H (NEGATIVE) /LPF Urine Mucus Moderate H (NEGATIVE) /LPF 07/12/18 Range/Units 07:15 WBC (5.00-10.00) 10^3/uL RBC (3.80-5.50) 10^6/uL Hgb (12.0-16.0) g/dL Hct (37.0-47.0) % MCV (82.0-92.0) fL MCH (27.0-31.0) pg MCHC (32.0-36.0) g/dL RDW (11.5-14.5) % Plt Count (150-400) 10^3/uL MPV (7.4-10.4) fL Immature Gran % (Auto) (0.0-5.0) % Neut % (Auto) (50.0-70.0) % Lymph % (Auto) (20.0-40.0) % [place] % (Auto) (2.0-8.0) % Eos % (Auto) (1.0-3.0) % Baso % (Auto) (0.0-1.0) % Immature Gran # (Auto) (0.00-0.50) 10^3/uL Neut # (Auto) (2.50-7.00) 10^3/uL Lymph # (Auto) (1.00-4.00) 10^3/uL [place] # (Auto) (0.10-0.80) 10^3/uL Eos # (Auto) (0.10-0.30) 10^3/uL Baso # (Auto) (0.00-0.10) 10^3/uL PT 12.7 H (8.9-11.4) SEC INR 1.3 H (0.9-1.1) Sodium (136-145) mmol/L Potassium (3.3-5.3) mmol/L Chloride (98-115) mmol/L Carbon Dioxide (21.0-32.0) mmol/L Anion Gap (5-15) mmol/L BUN (6-25) mg/dL Creatinine (0.51-1.17) mg/dL Est Cr Clr Drug Dosing mL/min Estimated GFR (MDRD) mL/min Glucose (75 - 99) mg/dL Calcium (8.7-10.3) mg/dL Total Bilirubin (0.2-1.0) mg/dL AST (15-37) U/L ALT (12-78) U/L Alkaline Phosphatase (46-116) IU/L Total Protein (6.4-8.2) g/dL Albumin (3.00-4.80) g/dL Lipase (73-393) U/L TSH, Ultra Sensitive (0.340-4.820) uIU/mL Specimen Type Urine Color (YELLOW) Urine Appearance (CLEAR) Urine pH (5.0-9.0) Ur Specific [place] (1.005-1.030) Urine Protein (NEGATIVE) mg/dL Urine Glucose (UA) (NEGATIVE) mg/dL Urine Ketones (NEGATIVE) mg/dL Urine Occult Blood (NEGATIVE) Urine Nitrite (NEGATIVE) Urine Bilirubin (NEGATIVE) Urine Urobilinogen (0.2-1.0) E.U./dL Ur Leukocyte Esterase (NEGATIVE) Urine RBC (0-5) /HPF Urine WBC (0-5) /HPF Ur Epithelial Cells /LPF Urine Bacteria (NONE TO FEW) /HPF Hyaline Casts (NEGATIVE) /LPF Urine Mucus (NEGATIVE) /LPF Med Orders - Current: Current Medications Acetaminophen (Tylenol) 650 mg PO Q4H PRN PRN Reason: analgesia/fever Hydrocodone Bitart/Acetaminophen (Bow 325-5 Mg) 1 - 2 tab PO Q6H PRN PRN Reason: Pain Last Admin: 07/12/18 05:15 Dose: 2 tab Albuterol (Proventil Neb Soln) 2.5 mg NEB QID PRN PRN Reason: Shortness of Breath Albuterol/Ipratropium (Duoneb 3.0-0.5 Mg/3 Ml) 3 ml INH QID PRN PRN Reason: Shortness of Breath Allopurinol (Zyloprim) 200 mg PO DAILY [facility] Last Admin: 07/12/18 08:14 Dose: 200 mg Atorvastatin Calcium (Lipitor) 40 mg PO BEDTIME [facility] Last Admin: 07/11/18 21:35 Dose: 40 mg Baclofen (Lioresal) 5 mg PO TID [facility] Last Admin: 07/12/18 08:12 Dose: 5 mg Cholecalciferol (Vitamin D3) 1,000 units PO DAILY@0800 [facility] Last Admin: 07/12/18 08:11 Dose: 1,000 units Dapsone (Dapsone) 100 mg PO DAILY [facility] Last Admin: 07/12/18 10:10 Dose: Not Given Diazepam (Valium.) 5 mg PO Q6H PRN PRN Reason: Spasms Last Admin: 07/11/18 18:18 Dose: 5 mg Docusate Sodium (Colace) 100 mg PO BID [facility] Last Admin: 07/12/18 08:10 Dose: 100 mg Furosemide (Lasix) 20 mg PO DAILY [facility] Last Admin: 07/12/18 08:11 Dose: 20 mg Levothyroxine Sodium (Synthroid) 88 mcg PO ACBREAKFAST [facility] Last Admin: 07/12/18 07:41 Dose: 88 mcg Lisinopril (Prinivil) 5 mg PO DAILY [facility] Last Admin: 07/12/18 08:11 Dose: 5 mg Metoprolol Tartrate (Lopressor) 12.5 mg PO BID [facility] Last Admin: 07/12/18 08:14 Dose: 12.5 mg Non-Formulary Medication (Albuterol) 2 puff INH Q4HR PRN PRN Reason: Shortness of Breath Non-Formulary Medication (Iron,Carbonyl/Ascorbic Acid [Vitron-C Tablet]) 1 each PO Q48H [facility] Non-Formulary Medication (Menthol [Biofreeze]) 1 applic TOP BID PRN PRN Reason: Pain Omeprazole (Omeprazole) 40 mg PO ACBREAKFAST [facility] Last Admin: 07/12/18 07:41 Dose: 40 mg Tiotropium Inhaler 18 Mcg Inhalation Powder Cap 1 each INH DAILY [facility] Last Admin: 07/12/18 10:06 Dose: 1 each Ptom Rup Rub Cream 1 each TOP BID [facility] Last Admin: 07/12/18 08:47 Dose: 1 each Arformoterol 15 Mcg/ (2 Ml Neb Soln) 1 each INH BIDRT [facility] Last Admin: 07/12/18 09:52 Dose: Not Given Polyethylene Glycol (Miralax) 17 gm PO DAILY@08 [facility] Last Admin: 07/12/18 08:08 Dose: 17 gm Potassium Chloride (Klor-Con 10) 10 meq PO DAILY@0800 [facility] Last Admin: 07/12/18 08:14 Dose: 10 meq Prednisone (Prednisone) 10 mg PO WITHBREAKFAST [facility] Last Admin: 07/12/18 08:10 Dose: 10 mg Roflumilast (Daliresp) 500 mcg PO DAILY [facility] Last Admin: 07/12/18 08:14 Dose: 500 mcg Sodium Chloride (Saline Flush) 10 ml FLUSH Q8HR PRN PRN Reason: keep vein open Last Admin: 07/12/18 07:13 Dose: 10 ml Sotalol HCl (Betapace) 120 mg PO DAILY [facility] Last Admin: 07/12/18 08:11 Dose: 120 mg Venlafaxine HCl (Effexor Xr) 150 mg PO DAILY [facility] Last Admin: 07/12/18 08:11 Dose: 150 mg Warfarin Sodium (Coumadin) 5 mg PO SUTUWETHSA@1800 [facility] Last Admin: 07/11/18 18:18 Dose: 5 mg Warfarin Sodium (Coumadin) 2.5 mg PO MOFR@1800 [facility] Discontinued Medications Arformoterol Tartrate (Brovana) 15 mcg INH BIDRT [facility] Last Admin: 07/12/18 08:23 Dose: 15 mcg Cyclobenzaprine HCl (Flexeril) 10 mg PO ONETIME ONE Stop: 07/11/18 12:40 Last Admin: 07/11/18 12:46 Dose: 10 mg Diazepam (Valium) 2 mg IVPUSH Q2H PRN PRN Reason: Spasms Hydromorphone HCl (Dilaudid) 0.5 mg IVPUSH ONETIME [facility] Last Admin: 07/11/18 12:10 Dose: 0.5 mg Sodium Chloride (Normal Saline) 1,000 mls @ 999 mls/hr IV .BOLUS ONE Stop: 07/11/18 13:39 Last Admin: 07/11/18 12:46 Dose: 999 mls/hr Sodium Chloride (Normal Saline) 50 mls @ 200 mls/hr IV ASDIRECTED [facility] Last Admin: 07/11/18 13:29 Dose: 200 mls/hr Iopamidol (Isovue-370 (76%)) 75 ml IVPUSH ONETIME ONE Stop: 07/11/18 12:57 Last Admin: 07/11/18 13:28 Dose: 75 ml Levothyroxine Sodium (Synthroid) 50 mcg PO ACBREAKFAST [facility] Magnesium Citrate (Citrate Of Magnesia) 296 ml PO ONETIME ONE Stop: 07/11/18 17:02 Last Admin: 07/11/18 18:18 Dose: 296 ml
[2018-07-12] MEDS ORDERED: 20% Ketoprofen 12 GM, 3% Menthol 1.8 GM & 8% Trolamine Salicylate 46.2 GM TOP SCH ×3 (11:00)
[2018-07-12] MEDS ORDERED: Warfarin 5 MG Tab PO SCH (18:00)
== END 2018-07-12 11:07 | disposition home or self-care (01) ==
LOC: KA.ED 11:10 → KA.MS 14:26
PROVIDERS: ADMIT Physician Assistant Surgical; ATTEND Family Medicine
DX: R10.9 Unspecified abdominal pain (principal); K59.00 Constipation, unspecified; G89.29 Other chronic pain; M54.5 Low back pain; E03.9 Hypothyroidism, unspecified; D50.9 Iron deficiency anemia, unspecified; I12.9 Hypertensive chronic kidney disease with stage 1 through stage 4 chronic kidney disease, or unspecified chronic kidney disease; E11.22 Type 2 diabetes mellitus with diabetic chronic kidney disease; I50.9 Heart failure, unspecified; N18.9 Chronic kidney disease, unspecified; J90 Pleural effusion, not elsewhere classified; J98.11 Atelectasis; I48.91 Unspecified atrial fibrillation; I88.9 Nonspecific lymphadenitis, unspecified; J44.9 Chronic obstructive pulmonary disease, unspecified; D75.89 Other specified diseases of blood and blood-forming organs; Z95.2 Presence of prosthetic heart valve; Z79.899 Other long term (current) drug therapy; Z88.6 Allergy status to analgesic agent; Z88.0 Allergy status to penicillin; Z88.1 Allergy status to other antibiotic agents; Z88.8 Allergy status to other drugs, medicaments and biological substances; Z91.041 Radiographic dye allergy status; Z90.49 Acquired absence of other specified parts of digestive tract
CPT/HCPCS: 36415; 74177; 80053; 81001; 82607; 82728; 82746; 83540; 83550; 83690; 84443; 85025; 85610; 94640; 99285; A9270; J1170; J7030; J7050; Q9967; 99283

== ENCOUNTER 2018-09-22 11:45 | Inpatient (IN) | payer MEDICARE, BC ==
[2018-09-22] MEDS ORDERED: Nitroglycerin 0.4 MG Tab.SL SL PRN (13:17)
[2018-09-22] MEDS ORDERED: Atropine 0.1 MG/ML 10 ML Syringe IVPUSH PRN (13:17)
[2018-09-22] MEDS ORDERED: EPINEPHrine 1:10,000 1 MG/10 ML Syringe IVPUSH PRN (13:17)
[2018-09-22] MEDS ORDERED: Lidocaine 2% 100 MG/5 ML Syringe IVPUSH PRN (13:17)
[2018-09-22] MEDS: Sodium Chloride 0.9% 10 ML Syringe FLUSH PRN ×2 (14:02→19:44)
[2018-09-22] MEDS: Furosemide 40 MG/4 ML VIAL IVPUSH SCH ×3 (14:03→21:54)
[2018-09-22 14:07] LABS: ANION GAP 13.3 mmol/L (5-15)
[2018-09-22] MEDS ORDERED: Albuterol/Ipratropium 3.0-0.5 MG/3 ML Neb Soln INH PRN (20:31)
[2018-09-22] MEDS ORDERED: Albuterol 0.083% 2.5 MG/3 ML Neb Soln NEB PRN (20:31)
[2018-09-22] MEDS ORDERED: Albuterol 8 GM Inhaler INH PRN (20:52)
[2018-09-22] MEDS: Baclofen 10 MG Tab PO SCH (20:55)
[2018-09-22] MEDS: Docusate Sodium 100 MG Cap PO SCH (20:56)
[2018-09-22] MEDS: Metoprolol Tartrate 25 MG Tab PO SCH (20:56)
[2018-09-22] MEDS: atorvaSTATin 40 MG Tab PO SCH (20:56)
[2018-09-22] MEDS ORDERED: Ondansetron 4 MG Tab.DIS PO PRN (21:00)
[2018-09-22] MEDS: Arformoterol 15 MCG/2 ML Neb Soln INH SCH (21:02)
[2018-09-23] MEDS: Tiotropium Inhaler 18 MCG Inhalation Powder Cap Kit of 5 INH SCH (08:39)
[2018-09-23] MEDS: Arformoterol 15 MCG/2 ML Neb Soln INH SCH ×2 (08:40→20:59)
[2018-09-23] MEDS: Omeprazole 20 MG Cap.CR PO SCH (08:40)
[2018-09-23] MEDS: Polyethylene Glycol 3350 Powder 17 GM Packet PO SCH (08:40)
[2018-09-23] MEDS: Levothyroxine 100 MCG Tab PO SCH (08:40)
[2018-09-23] MEDS: Docusate Sodium 100 MG Cap PO SCH ×2 (08:41→21:04)
[2018-09-23] MEDS: Baclofen 10 MG Tab PO SCH ×3 (08:41→21:04)
[2018-09-23] MEDS: Allopurinol 100 MG Tab PO SCH (08:41)
[2018-09-23] MEDS: Furosemide 40 MG/4 ML VIAL IVPUSH SCH (08:42)
[2018-09-23] MEDS: Venlafaxine 150 MG Cap.ER PO SCH (08:42)
[2018-09-23] MEDS: predniSONE 10 MG Tab PO SCH (08:42)
[2018-09-23] MEDS: Potassium Chloride 10 MEQ Tab.ER PO SCH (08:42)
[2018-09-23] MEDS: Roflumilast 500 MCG Tab PO SCH (08:42)
[2018-09-23] MEDS: Lisinopril 5 MG Tab PO SCH (08:45)
[2018-09-23] MEDS: Sotalol 80 MG Tab PO SCH (08:46)
[2018-09-23] MEDS: Metoprolol Tartrate 25 MG Tab PO SCH ×2 (08:46→21:06)
[2018-09-23] MEDS: Sodium Chloride 0.9% 10 ML Syringe FLUSH PRN ×2 (08:56→21:08)
[2018-09-23] MEDS ORDERED: Potassium Bicarbonate/Potassium Chloride 25 MEQ Tab.Eff PO SCH ×2 (11:00→17:00)
--- NOTE | 2018-09-23 11:02 | PCM.PN ---
- General Info Date of Service: 09/23/18 Functional Status: Reports: Pain Controlled, Tolerating Diet, Urinating. Denies : New Symptoms, Incentive Spirometry - Review of Systems General: Denies: Fever, Weakness, Fatigue, Malaise, Chills HEENT: Reports: No Symptoms Pulmonary: Reports: Shortness of Breath, Cough. Denies: Sputum, Wheezing Cardiovascular: Reports: Dyspnea on Exertion. Denies: Edema, Lightheadedness Gastrointestinal: Reports: Constipation Musculoskeletal: Reports: No Symptoms Skin: Reports: Dryness Neurological: Reports: No Symptoms Psychiatric: Reports: No Symptoms - Patient Data Vitals - Most Recent: Last Vital Signs Temp 99.1 F 09/23/18 06:39 Pulse 70 09/23/18 08:46 Resp 18 09/23/18 06:39 BP 152/67 H 09/23/18 08:46 Pulse Ox 91 L 09/23/18 06:39 Weight - Most Recent: 113 lb 2 oz I&O - Last 24 Hours: Intake & Output 09/22/18 09/23/18 09/23/18 22:59 06:59 14:59 Intake Total 120 50 Output Total 800 Balance -680 50 Lab Results Last 24 Hours: Laboratory Results - last 24 hr 09/22/18 09/22/18 09/22/18 Range/Units 13:25 13:25 23:20 WBC 12.03 H (5.00-10.00) 10^3/uL RBC 2.62 L (3.80-5.50) 10^6/uL Hgb 9.5 L (12.0-16.0) g/dL Hct 30.8 L (37.0-47.0) % MCV 117.6 H (82.0-92.0) fL MCH 36.3 H (27.0-31.0) pg MCHC 30.8 L (32.0-36.0) g/dL RDW 15.4 H (11.5-14.5) % Plt Count 168 (150-400) 10^3/uL MPV 11.3 H (7.4-10.4) fL Immature Gran % (Auto) 0.5 (0.0-5.0) % Neut % (Auto) 87.0 H (50.0-70.0) % Lymph % (Auto) 7.2 L (20.0-40.0) % [place] % (Auto) 4.4 (2.0-8.0) % Eos % (Auto) 0.7 L (1.0-3.0) % Baso % (Auto) 0.2 (0.0-1.0) % Immature Gran # (Auto) 0.06 (0.00-0.50) 10^3/uL Neut # (Auto) 10.45 H (2.50-7.00) 10^3/uL Lymph # (Auto) 0.87 L (1.00-4.00) 10^3/uL [place] # (Auto) 0.53 (0.10-0.80) 10^3/uL Eos # (Auto) 0.09 L (0.10-0.30) 10^3/uL Baso # (Auto) 0.03 (0.00-0.10) 10^3/uL Platelet Estimate Adequate Macrocytosis 2+ moderate PT TNP INR 3.0 H (0.9-1.1) Sodium 147 H (136-145) mmol/L Potassium 3.5 (3.3-5.3) mmol/L Chloride 107 (98-115) mmol/L Carbon Dioxide 30.2 (21.0-32.0) mmol/L Anion Gap 13.3 (5-15) mmol/L BUN 19 (6-25) mg/dL Creatinine 0.98 (0.51-1.17) mg/dL Est Cr Clr Drug Dosing 32.34 mL/min Estimated GFR (MDRD) 54 mL/min Glucose 173 H (75 - 99) mg/dL Calcium 9.0 (8.7-10.3) mg/dL Total Bilirubin 1.1 H (0.2-1.0) mg/dL AST 17 (15-37) U/L ALT 14 (12-78) U/L Alkaline Phosphatase 86 (46-116) IU/L Troponin I 0.06 (0.00-0.070) ng/mL B-Natriuretic Peptide 1030 H (0-100) pg/mL Total Protein 5.8 L (6.4-8.2) g/dL Albumin 3.11 (3.00-4.80) g/dL 09/23/18 09/23/18 Range/Units 07:12 07:12 WBC (5.00-10.00) 10^3/uL RBC (3.80-5.50) 10^6/uL Hgb (12.0-16.0) g/dL Hct (37.0-47.0) % MCV (82.0-92.0) fL MCH (27.0-31.0) pg MCHC (32.0-36.0) g/dL RDW (11.5-14.5) % Plt Count (150-400) 10^3/uL MPV (7.4-10.4) fL Immature Gran % (Auto) (0.0-5.0) % Neut % (Auto) (50.0-70.0) % Lymph % (Auto) (20.0-40.0) % [place] % (Auto) (2.0-8.0) % Eos % (Auto) (1.0-3.0) % Baso % (Auto) (0.0-1.0) % Immature Gran # (Auto) (0.00-0.50) 10^3/uL Neut # (Auto) (2.50-7.00) 10^3/uL Lymph # (Auto) (1.00-4.00) 10^3/uL [place] # (Auto) (0.10-0.80) 10^3/uL Eos # (Auto) (0.10-0.30) 10^3/uL Baso # (Auto) (0.00-0.10) 10^3/uL Platelet Estimate Macrocytosis PT 24.5 H D INR 2.5 H (0.9-1.1) Sodium 150 H (136-145) mmol/L Potassium 3.1 L (3.3-5.3) mmol/L Chloride 107 (98-115) mmol/L Carbon Dioxide 32.1 H (21.0-32.0) mmol/L Anion Gap 14.0 (5-15) mmol/L BUN 18 (6-25) mg/dL Creatinine 0.98 (0.51-1.17) mg/dL Est Cr Clr Drug Dosing 32.34 mL/min Estimated GFR (MDRD) 54 mL/min Glucose 111 H (75 - 99) mg/dL Calcium 9.1 (8.7-10.3) mg/dL Total Bilirubin (0.2-1.0) mg/dL AST (15-37) U/L ALT (12-78) U/L Alkaline Phosphatase (46-116) IU/L Troponin I (0.00-0.070) ng/mL B-Natriuretic Peptide (0-100) pg/mL Total Protein (6.4-8.2) g/dL Albumin (3.00-4.80) g/dL Med Orders - Current: Current Medications Albuterol (Ventolin Hfa) 0 gm INH Q4H PRN PRN Reason: Shortness of Breath Albuterol (Proventil Neb Soln) 2.5 mg NEB QID PRN PRN Reason: Shortness of Breath Albuterol/Ipratropium (Duoneb 3.0-0.5 Mg/3 Ml) 3 ml INH QID PRN PRN Reason: Shortness of Breath Allopurinol (Zyloprim) 200 mg PO DAILY [facility] Last Admin: 09/23/18 08:41 Dose: 200 mg Arformoterol Tartrate (Brovana) 15 mcg INH BIDRT [facility] Last Admin: 09/23/18 08:40 Dose: 15 mcg Atorvastatin Calcium (Lipitor) 40 mg PO BEDTIME [facility] Last Admin: 09/22/18 20:56 Dose: 40 mg Atropine Sulfate (Atropine 0.1 Mg/Ml) 0 mg IVPUSH ASDIRECTED PRN PRN Reason: Heart Baclofen (Lioresal) 5 mg PO TID [facility] Last Admin: 09/23/18 08:41 Dose: 5 mg Dapsone (Dapsone) 100 mg PO DAILY [facility] Docusate Sodium (Colace) 100 mg PO BID [facility] Last Admin: 09/23/18 08:41 Dose: 100 mg Epinephrine HCl (Epinephrine 1:10,000) 1 mg IVPUSH ASDIRECTED PRN PRN Reason: Heart Furosemide (Lasix) 40 mg IVPUSH BID [facility] Last Admin: 09/23/18 08:42 Dose: 40 mg Levothyroxine Sodium (Synthroid) 100 mcg PO ACBREAKFAST [facility] Last Admin: 09/23/18 08:40 Dose: 100 mcg Lidocaine HCl (Xylocaine 2%) 0 mg IVPUSH ASDIRECTED PRN PRN Reason: Heart Lisinopril (Prinivil) 5 mg PO DAILY [facility] Last Admin: 09/23/18 08:45 Dose: 5 mg Metoprolol Tartrate (Lopressor) 12.5 mg PO BID [facility] Last Admin: 09/23/18 08:46 Dose: 12.5 mg Nitroglycerin (Nitrostat) 0.4 mg SL ASDIRECTED PRN PRN Reason: Heart Omeprazole (Omeprazole) 40 mg PO ACBREAKFAST [facility] Last Admin: 09/23/18 08:40 Dose: 40 mg Ondansetron HCl (Zofran Odt) 4 mg PO Q4H PRN PRN Reason: Nausea Polyethylene Glycol (Miralax) 17 gm PO DAILY@08 [facility] Last Admin: 09/23/18 08:40 Dose: 17 gm Potassium Chloride (Klor-Con 10) 10 meq PO DAILY@0800 [facility] Last Admin: 09/23/18 08:42 Dose: 10 meq Prednisone (Prednisone) 10 mg PO WITHBREAKFAST [facility] Last Admin: 09/23/18 08:42 Dose: 10 mg Roflumilast (Daliresp) 500 mcg PO DAILY [facility] Last Admin: 09/23/18 08:42 Dose: 500 mcg Sodium Chloride (Saline Flush) 10 ml FLUSH Q8HR PRN PRN Reason: keep vein open Last Admin: 09/23/18 08:56 Dose: 10 ml Sotalol HCl (Betapace) 120 mg PO DAILY [facility] Last Admin: 09/23/18 08:46 Dose: 120 mg Tiotropium [place] (Spiriva Handihaler) 18 mcg INH DAILY [facility] Last Admin: 09/23/18 08:39 Dose: 18 mcg Venlafaxine HCl (Effexor Xr) 150 mg PO DAILY [facility] Last Admin: 09/23/18 08:42 Dose: 150 mg Warfarin Sodium (Coumadin) 2.5 mg PO MOFR@1800 [facility] Warfarin Sodium (Coumadin) 5 mg PO SUTUWETHSA@1800 [facility] - Exam Quality Assessment: Supplemental Oxygen General: Alert, Oriented, Cooperative, No Acute Distress Neck: No JVD Lungs: Normal Respiratory Effort, Decreased Breath Sounds. No: Wheezing Cardiovascular: Irregular Rhythm GI/Abdominal Exam: Soft (Female) Exam: Deferred Back Exam: No: CVA Tenderness (L), CVA Tenderness (R) Extremities: No: Pedal Edema Skin: Other (brawniness noted to arms and BLE) Wound/Incisions: Other (brawniness noted to arms and BLE) Neurological: Normal Speech, Normal Tone Psy/Mental Status: Alert. No: Anxious, Agitated - Problem List Review Problem List Initiated/Reviewed/Updated: Yes - My Orders Last 24 Hours: My Active Orders 09/22/18 20:31 Albuterol [Proventil Neb Soln] 2.5 mg NEB QID PRN Albuterol/Ipratropium [DuoNeb 3.0-0.5 MG/3 ML] 3 ml INH QID PRN 09/22/18 20:52 Albuterol [Ventolin HFA] 0 gm INH Q4H PRN 09/22/18 21:00 Arformoterol [Brovana] 15 mcg INH BIDRT Baclofen [Lioresal] 5 mg PO TID Docusate Sodium [Colace] 100 mg PO BID Metoprolol Tartrate [Lopressor] 12.5 mg PO BID Ondansetron [Zofran ODT] 4 mg PO Q4H PRN atorvaSTATin [Lipitor] 40 mg PO BEDTIME 09/23/18 07:30 Levothyroxine [Synthroid] 100 mcg PO ACBREAKFAST Omeprazole 40 mg PO ACBREAKFAST 09/23/18 08:00 Polyethylene Glycol 3350 [MiraLAX] 17 gm PO DAILY@08 Potassium Chloride [Klor-Con 10] 10 meq PO DAILY@0800 predniSONE 10 mg PO WITHBREAKFAST 09/23/18 09:00 Allopurinol [Zyloprim] 200 mg PO DAILY Dapsone 100 mg PO DAILY Lisinopril [Prinivil] 5 mg PO DAILY Roflumilast [Daliresp] 500 mcg PO DAILY Sotalol [Betapace] 120 mg PO DAILY Tiotropium [Spiriva HandiHaler] 18 mcg INH DAILY Venlafaxine [Effexor XR] 150 mg PO DAILY 09/23/18 18:00 Warfarin [Coumadin] 5 mg PO SUTUWETHSA@1800 09/24/18 18:00 Warfarin [Coumadin] 2.5 mg PO MOFR@1800 - Plan Plan:: Brief summary (see H&P by Solomon TAMAYO [place] clinical note) Jossie is an 83-year-old female that was admitted yesterday from an [facility] due to shortness of breath and more difficulty breathing when the nursing staff at the assisted living facility noticed that she was hypoxia in the low 80s on while on oxygen increased respiratory rate. At the time the patient denied any fever chills or cough and initial interpretation of chest x- ray demonstrated large left pleural effusion therefore she was admitted for diuresis and pulmonary toileting. Final interpretation of chest x-ray demonstrates patient to have both LLL and RLL (L>R) with consolidation and parapneumonic effusions. Small right-sided pleural effusion and mild right basilar infiltrate/atelectasis Code status: full code Room 121 Primary hospital problems Pneumonia, CAP, LLL and RLL (L>R) with consolidation and parapneumonic effusions. Pleural effusion, small right-side superimposing right basilar infiltrate/ atelectasis Leukocytosis, Hypoxemia Hypernatremia, likely water deficit Hypokalemia Multiple drug allergies Chronic but stable problems Hypothyroidism, uncontrolled COPD: Stable. Continue baseline oxygen, Pulmicort, Daliresp, Spiriva, and prn albuterol. CAD HFpEF, Currently asymptomatic with slightly fluid depleted status. Continue metoprolol and lisinopril. HTN/HLD, stable GERD, Continue PPI. Anemia, CHRISTIAN, Suyapa's granulomatosis, Continue dapsone and prednisone. Chronic back pain: Continue [place] prn and baclofen TID. Depression, Continue Effexor. Atrial fibrillation, rhythm controlled on sotalol, on warfarin, INR therapeutic 2.5 Hx TAVR Disposition, remain in acute care status, assess blood and cultures, start renal dose appropriate antibiotic therapy, Hold Lasix as patient's fluid status appears hypovolemic in conjunction with hypernatremia. K+ supplementation. No IV fluids however will have patient increase oral intake of free water, pulmonary toileting.
[2018-09-23] MEDS: Warfarin 5 MG Tab PO SCH (18:13)
[2018-09-23] MEDS: Levofloxacin/Dextrose 5%-Water 250 MG in Premix Bag 1 BAG IV SCH (20:55)
[2018-09-23] MEDS: atorvaSTATin 40 MG Tab PO SCH (21:04)
[2018-09-23] MEDS: Levofloxacin/Dextrose 5%-Water 500 MG in Premix Bag 1 BAG IV SCH (22:06)
[2018-09-24] MEDS: Levothyroxine 100 MCG Tab PO SCH ×2 (06:25→06:31)
[2018-09-24] MEDS: Omeprazole 20 MG Cap.CR PO SCH ×2 (06:25→06:31)
[2018-09-24 07:36] LABS: ANION GAP 25.3 mmol/L (5-15)
[2018-09-24] MEDS ORDERED: Dextrose 5% in Water 1,000 ML IV SCH (08:15)
[2018-09-24] MEDS: Potassium Chloride 10 MEQ Tab.ER PO SCH (08:31)
[2018-09-24] MEDS: Arformoterol 15 MCG/2 ML Neb Soln INH SCH ×2 (08:31→20:39)
[2018-09-24] MEDS: Polyethylene Glycol 3350 Powder 17 GM Packet PO SCH (08:31)
[2018-09-24] MEDS: predniSONE 10 MG Tab PO SCH (08:31)
--- NOTE | 2018-09-24 08:59 | PCM.PN ---
- General Info Date of Service: 09/24/18 Functional Status: Reports: Pain Controlled, Tolerating Diet, Ambulating. Denies: New Symptoms - Review of Systems General: Denies: Fever, Weakness, Fatigue, Malaise Pulmonary: Reports: No Symptoms Cardiovascular: Reports: No Symptoms Gastrointestinal: Reports: No Symptoms Genitourinary: Reports: No Symptoms Skin: Reports: Dryness Neurological: Denies: Confusion, Dizziness Psychiatric: Reports: No Symptoms - Patient Data Vitals - Most Recent: Last Vital Signs Temp 97.8 F 09/24/18 06:59 Pulse 67 09/24/18 06:59 Resp 20 09/24/18 06:59 BP 143/57 H 09/24/18 06:59 Pulse Ox 92 L 09/24/18 06:59 Weight - Most Recent: 109 lb 1 oz I&O - Last 24 Hours: Intake & Output 09/23/18 09/24/18 09/24/18 22:59 06:59 14:59 Intake Total 485 225 Output Total 200 200 Balance 285 25 Lab Results Last 24 Hours: Laboratory Results - last 24 hr 09/24/18 09/24/18 09/24/18 Range/Units 06:25 06:52 06:52 WBC (5.00-10.00) 10^3/uL RBC (3.80-5.50) 10^6/uL Hgb (12.0-16.0) g/dL Hct (37.0-47.0) % MCV (82.0-92.0) fL MCH (27.0-31.0) pg MCHC (32.0-36.0) g/dL RDW (11.5-14.5) % Plt Count (150-400) 10^3/uL MPV (7.4-10.4) fL Immature Gran % (Auto) (0.0-5.0) % Neut % (Auto) (50.0-70.0) % Lymph % (Auto) (20.0-40.0) % [place] % (Auto) (2.0-8.0) % Eos % (Auto) (1.0-3.0) % Baso % (Auto) (0.0-1.0) % Immature Gran # (Auto) (0.00-0.50) 10^3/uL Neut # (Auto) (2.50-7.00) 10^3/uL Lymph # (Auto) (1.00-4.00) 10^3/uL [place] # (Auto) (0.10-0.80) 10^3/uL Eos # (Auto) (0.10-0.30) 10^3/uL Baso # (Auto) (0.00-0.10) 10^3/uL PT 24.6 H (8.9-11.4) SEC INR 2.5 H (0.9-1.1) Sodium 158 H (136-145) mmol/L Potassium 4.4 (3.3-5.3) mmol/L Chloride 106 (98-115) mmol/L Carbon Dioxide 31.1 (21.0-32.0) mmol/L Anion Gap 25.3 H (5-15) mmol/L BUN 24 (6-25) mg/dL Creatinine 1.02 (0.51-1.17) mg/dL Est Cr Clr Drug Dosing 31.07 mL/min Estimated GFR (MDRD) 52 mL/min Glucose 97 (75 - 99) mg/dL POC Glucose 102 (74-106) mg/dl Calcium 9.1 (8.7-10.3) mg/dL 09/24/18 Range/Units 06:52 WBC 10.29 H (5.00-10.00) 10^3/uL RBC 2.40 L (3.80-5.50) 10^6/uL Hgb 8.8 L (12.0-16.0) g/dL Hct 28.5 L (37.0-47.0) % MCV 118.8 H (82.0-92.0) fL MCH 36.7 H (27.0-31.0) pg MCHC 30.9 L (32.0-36.0) g/dL RDW 15.1 H (11.5-14.5) % Plt Count 167 (150-400) 10^3/uL MPV 12.0 H (7.4-10.4) fL Immature Gran % (Auto) 0.7 (0.0-5.0) % Neut % (Auto) 70.4 H (50.0-70.0) % Lymph % (Auto) 17.9 L (20.0-40.0) % [place] % (Auto) 8.9 H (2.0-8.0) % Eos % (Auto) 1.7 (1.0-3.0) % Baso % (Auto) 0.4 (0.0-1.0) % Immature Gran # (Auto) 0.07 (0.00-0.50) 10^3/uL Neut # (Auto) 7.24 H (2.50-7.00) 10^3/uL Lymph # (Auto) 1.84 (1.00-4.00) 10^3/uL [place] # (Auto) 0.92 H (0.10-0.80) 10^3/uL Eos # (Auto) 0.18 (0.10-0.30) 10^3/uL Baso # (Auto) 0.04 (0.00-0.10) 10^3/uL PT (8.9-11.4) SEC INR (0.9-1.1) Sodium (136-145) mmol/L Potassium (3.3-5.3) mmol/L Chloride (98-115) mmol/L Carbon Dioxide (21.0-32.0) mmol/L Anion Gap (5-15) mmol/L BUN (6-25) mg/dL Creatinine (0.51-1.17) mg/dL Est Cr Clr Drug Dosing mL/min Estimated GFR (MDRD) mL/min Glucose (75 - 99) mg/dL POC Glucose (74-106) mg/dl Calcium (8.7-10.3) mg/dL Med Orders - Current: Current Medications Albuterol (Ventolin Hfa) 0 gm INH Q4H PRN PRN Reason: Shortness of Breath Albuterol (Proventil Neb Soln) 2.5 mg NEB QID PRN PRN Reason: Shortness of Breath Albuterol/Ipratropium (Duoneb 3.0-0.5 Mg/3 Ml) 3 ml INH QID PRN PRN Reason: Shortness of Breath Allopurinol (Zyloprim) 200 mg PO DAILY [facility] BEDS [facility] Last Admin: 09/23/18 08:41 Dose: 200 mg Arformoterol Tartrate (Brovana) 15 mcg INH BIDRT [facility]S [facility]CLUDE 234 BEDS AT [facility] Last Admin: 09/24/18 08:31 Dose: 15 mcg Atorvastatin Calcium (Lipitor) 40 mg PO BEDTIME [facility]S [facility]CLUDE 234 BEDS AT [facility] Last Admin: 09/23/18 21:04 Dose: 40 mg Atropine Sulfate (Atropine 0.1 Mg/Ml) 0 mg IVPUSH ASDIRECTED PRN PRN Reason: Heart Baclofen (Lioresal) 5 mg PO TID [facility]S [facility]CLUDE 234 BEDS AT [facility] Last Admin: 09/23/18 21:04 Dose: 5 mg Docusate Sodium (Colace) 100 mg PO BID [facility] 234 BEDS AT [facility] Last Admin: 09/23/18 21:04 Dose: 100 mg Epinephrine HCl (Epinephrine 1:10,000) 1 mg IVPUSH ASDIRECTED PRN PRN Reason: Heart Levofloxacin/Dextrose 250 mg/ (Premix) 50 mls @ 50 mls/hr IV Q48H COUNTS INCLUDE 234 BEDS AT [facility] Last Admin: 09/23/18 20:55 Dose: 50 mls/hr Levofloxacin/Dextrose 500 mg/ (Premix) 100 mls @ 100 mls/hr IV Q48H COUNTS INCLUDE 234 BEDS AT THE [facility] Last Admin: 09/23/18 22:06 Dose: 100 mls/hr Dextrose/Water (Dextrose 5% In Water) 1,000 mls @ 50 mls/hr IV ASDIRECTED COUNTS INCLUDE 234 BEDS AT THE [facility] Levothyroxine Sodium (Synthroid) 100 mcg PO ACBREAKFAST [facility]S [facility]CLUDE 234 BEDS AT [facility] Last Admin: 09/24/18 06:31 Dose: Not Given Lidocaine HCl (Xylocaine 2%) 0 mg IVPUSH ASDIRECTED PRN PRN Reason: Heart Lisinopril (Prinivil) 5 mg PO DAILY [facility] 234 BEDS AT [facility] Last Admin: 09/23/18 08:45 Dose: 5 mg Metoprolol Tartrate (Lopressor) 12.5 mg PO BID [facility]CLUDE 234 BEDS AT [facility] Last Admin: 09/23/18 21:06 Dose: 12.5 mg Nitroglycerin (Nitrostat) 0.4 mg SL ASDIRECTED PRN PRN Reason: Heart Omeprazole (Omeprazole) 40 mg PO ACBREAKFAST [facility]CLUDE 234 BEDS AT [facility] Last Admin: 09/24/18 06:31 Dose: Not Given Ondansetron HCl (Zofran Odt) 4 mg PO Q4H PRN PRN Reason: Nausea Dapsone 100mg Tablet 1 each PO DAILY [facility]CLUDE 234 BEDS AT [facility] Polyethylene Glycol (Miralax) 17 gm PO DAILY@08 [facility] 234 BEDS AT [facility] Last Admin: 09/24/18 08:31 Dose: 17 gm Potassium Bicarb/Potassium Chloride (Potassium Chloride, Effervescent) 25 meq PO DAILY [facility]CLUDE 234 BEDS AT [facility] Last Admin: 09/23/18 12:23 Dose: 25 meq Potassium Bicarb/Potassium Chloride (Potassium Chloride, Effervescent) 25 meq PO DAILY [facility]CLUDE 234 BEDS AT [facility] Last Admin: 09/23/18 18:13 Dose: 25 meq Potassium Chloride (Klor-Con 10) 10 meq PO DAILY@0800 [facility]S INCLUDE 234 BEDS AT [facility] Last Admin: 09/24/18 08:31 Dose: 10 meq Prednisone (Prednisone) 10 mg PO WITHBREAKFAST COUNTS INCLUDE 234 BEDS AT [facility] Last Admin: 09/24/18 08:31 Dose: 10 mg Roflumilast (Daliresp) 500 mcg PO DAILY [facility]CLUDE 234 BEDS AT [facility] Last Admin: 09/23/18 08:42 Dose: 500 mcg Sodium Chloride (Saline Flush) 10 ml FLUSH Q8HR PRN PRN Reason: keep vein open Last Admin: 09/23/18 21:08 Dose: 10 ml Sodium Chloride (Normal Saline) 100 ml IV ASDIRECTED COUNTS INCLUDE 234 BEDS AT THE [facility] Sotalol HCl (Betapace) 120 mg PO DAILY [facility]S INCLUDE 234 BEDS AT [facility] Last Admin: 09/23/18 08:46 Dose: 120 mg Tiotropium [place] (Spiriva Handihaler) 18 mcg INH DAILY [facility]S INCLUDE 234 BEDS AT [facility] Last Admin: 09/23/18 08:39 Dose: 18 mcg Venlafaxine HCl (Effexor Xr) 150 mg PO DAILY [facility]CLUDE 234 BEDS AT [facility] Last Admin: 09/23/18 08:42 Dose: 150 mg Warfarin Sodium (Coumadin) 2.5 mg PO MOFR@1800 COUNTS INCLUDE 234 BEDS AT [facility] Warfarin Sodium (Coumadin) 5 mg PO SUTUWETHSA@1800 COUNTS INCLUDE 234 BEDS AT [facility] Last Admin: 09/23/18 18:13 Dose: 5 mg Discontinued Medications Dapsone (Dapsone) 100 mg PO DAILY [facility]S INCLUDE 234 BEDS AT [facility] Last Admin: 09/23/18 15:01 Dose: Not Given Furosemide (Lasix) 40 mg IVPUSH BID COUNTS INCLUDE 234 BEDS AT [facility] Last Admin: 09/23/18 08:42 Dose: 40 mg Furosemide (Lasix) 40 mg IVPUSH DAILY COUNTS INCLUDE 234 BEDS AT THE [facility] - Exam Quality Assessment: Supplemental Oxygen General: Alert, Oriented, Cooperative, No Acute Distress Neck: No JVD Lungs: Clear to Auscultation. No: Rales, Rhonchi, Rub, Wheezing Cardiovascular: Regular Rate, Regular Rhythm GI/Abdominal Exam: Soft Back Exam: No: CVA Tenderness (L), CVA Tenderness (R) Extremities: No Pedal Edema Peripheral Pulses: 2+: Radial (L), Radial (R) Skin: Dry, Other (Extreme brawniness bilateral lower extremities arms) Psy/Mental Status: Alert, Normal Affect, Normal Mood - Problem List Review Problem List Initiated/Reviewed/Updated: Yes - My Orders Last 24 Hours: My Active Orders 09/23/18 08:00 Polyethylene Glycol 3350 [MiraLAX] 17 gm PO DAILY@08 Potassium Chloride [Klor-Con 10] 10 meq PO DAILY@0800 predniSONE 10 mg PO WITHBREAKFAST 09/23/18 09:00 Allopurinol [Zyloprim] 200 mg PO DAILY Lisinopril [Prinivil] 5 mg PO DAILY Roflumilast [Daliresp] 500 mcg PO DAILY Sotalol [Betapace] 120 mg PO DAILY Tiotropium [Spiriva HandiHaler] 18 mcg INH DAILY Venlafaxine [Effexor XR] 150 mg PO DAILY 09/23/18 10:54 CULTURE SPUTUM + SMEAR [RM] Routine Blood Culture x2 Reflex Set [OM.PC] Stat 09/23/18 10:55 Incentive Spirometry [RT Incentive Spirometry] [RC] Q1HWA 09/23/18 11:00 Potassium Bicarb/Potassium Chl [Potassium Chloride, Effervescent] 25 meq PO DAILY 09/23/18 11:05 CULTURE BLOOD [BC] Stat 09/23/18 11:20 CULTURE BLOOD [BC] Stat 09/23/18 17:00 Potassium Bicarb/Potassium Chl [Potassium Chloride, Effervescent] 25 meq PO DAILY 09/23/18 18:00 Warfarin [Coumadin] 5 mg PO SUTUWETHSA@1800 09/23/18 20:00 Levofloxacin/Dextrose 5%-Water [Levaquin in D5W 250 MG/50 ML] 250 mg Premix Bag 1 bag IV Q48H Levofloxacin/Dextrose 5%-Water [Levaquin in D5W 500 MG/100 ML] 500 mg Premix Bag 1 bag IV Q48H 09/24/18 08:15 Dextrose 5% in Water 1,000 ml IV ASDIRECTED 09/24/18 09:00 Patient's Own Medication [Ptom] 1 each PO DAILY 09/24/18 18:00 Warfarin [Coumadin] 2.5 mg PO MOFR@1800 - Plan Plan:: Brief summary (see H&P by Solomon Wilde clinical note) Jossie is an 83-year-old female that was admitted yesterday from an [facility] due to shortness of breath and more difficulty breathing when the nursing staff at the assisted living facility noticed that she was hypoxia in the low 80s on while on oxygen increased respiratory rate. At the time the patient denied any fever chills or cough and initial interpretation of chest x- ray demonstrated large left pleural effusion therefore she was admitted for diuresis and pulmonary toileting. Final interpretation of chest x-ray demonstrates patient to have both LLL and RLL (L>R) with consolidation and parapneumonic effusions. Small right-sided pleural effusion and mild right basilar infiltrate/atelectasis Code status: full code Room 121 Update on rounds, sitting in chair, eating conversing, no acute distress, only mild cough with no sputum. Started low-dose levofloxacin last night. Patient slightly over diuresis. Primary hospital problems Pneumonia, CAP, LLL and RLL (L>R) with consolidation and parapneumonic effusions. Pleural effusion, small right-side superimposing right basilar infiltrate/ atelectasis Leukocytosis, improving Hypoxemia, proving Hypernatremia, likely water deficit Hypokalemia, resolved, hold potassium while holding Lasix Multiple drug allergies Chronic but stable problems Hypothyroidism, uncontrolled COPD: Stable. Continue baseline oxygen, Pulmicort, Daliresp, Spiriva, and prn albuterol. CAD, no ischemic picture HFpEF, Currently asymptomatic with slightly fluid depleted status. Continue metoprolol and lisinopril. HTN/HLD, stable GERD, Continue PPI. Anemia, CHRISTIAN, Suyapa's granulomatosis, Continue dapsone and prednisone. Chronic back pain: Continue [place] prn and baclofen TID. Depression, Continue Effexor. Atrial fibrillation, rhythm controlled on sotalol, on warfarin, INR therapeutic 2.5 Hx TAVR DVT prophylaxis, on anticoagulation Disposition, hold Lasix, Correct free H20 deficit (~2.5L) however based off history will do this slowly, D5W at 50 mL per hour, current oral hydration, assess sodium level this pm, remain in acute care status, culture surveillance, continue with renal dose Levaquin, Hold Lasix as patient's fluid status appears hypovolemic in conjunction with hypernatremia. pulmonary toileting. Anticipate discharge back to assisted living facility Thursday on oral antibiotic therapy as long as clinical course continues to improve.
[2018-09-24] MEDS ORDERED: Furosemide 40 MG/4 ML VIAL IVPUSH SCH (09:00)
[2018-09-24] MEDS: Allopurinol 100 MG Tab PO SCH (09:13)
[2018-09-24] MEDS: Sotalol 80 MG Tab PO SCH (09:13)
[2018-09-24] MEDS: Metoprolol Tartrate 25 MG Tab PO SCH ×2 (09:14→20:36)
[2018-09-24] MEDS: Roflumilast 500 MCG Tab PO SCH (09:14)
[2018-09-24] MEDS: Baclofen 10 MG Tab PO SCH ×3 (09:14→20:35)
[2018-09-24] MEDS: Venlafaxine 150 MG Cap.ER PO SCH (09:15)
[2018-09-24] MEDS: Docusate Sodium 100 MG Cap PO SCH ×2 (09:15→20:37)
[2018-09-24] MEDS: Tiotropium Inhaler 18 MCG Inhalation Powder Cap Kit of 5 INH SCH (09:15)
[2018-09-24] MEDS: Lisinopril 5 MG Tab PO SCH (09:19)
[2018-09-24] MEDS: Iron Polysaccharides Complex 150 MG Cap PO SCH (12:32)
[2018-09-24] MEDS: Ascorbic Acid 500 MG Tab PO SCH (12:32)
[2018-09-24] MEDS ORDERED: Warfarin 2.5 MG Tab PO SCH (18:00)
[2018-09-24] MEDS: atorvaSTATin 40 MG Tab PO SCH (20:37)
[2018-09-25] MEDS: Omeprazole 20 MG Cap.CR PO SCH (06:30)
[2018-09-25] MEDS: Levothyroxine 100 MCG Tab PO SCH (06:30)
[2018-09-25 08:30] LABS: ANION GAP 10.3 mmol/L (5-15)
[2018-09-25] MEDS: predniSONE 10 MG Tab PO SCH (09:09)
[2018-09-25] MEDS: Arformoterol 15 MCG/2 ML Neb Soln INH SCH ×2 (09:09→20:27)
[2018-09-25] MEDS: Polyethylene Glycol 3350 Powder 17 GM Packet PO SCH (09:09)
[2018-09-25] MEDS: Baclofen 10 MG Tab PO SCH ×3 (10:00→20:28)
[2018-09-25] MEDS: Allopurinol 100 MG Tab PO SCH (11:09)
[2018-09-25] MEDS: Venlafaxine 150 MG Cap.ER PO SCH (11:09)
[2018-09-25] MEDS: Sotalol 80 MG Tab PO SCH (11:09)
[2018-09-25] MEDS: Roflumilast 500 MCG Tab PO SCH (11:09)
[2018-09-25] MEDS: Metoprolol Tartrate 25 MG Tab PO SCH ×2 (11:13→20:29)
[2018-09-25] MEDS: Tiotropium Inhaler 18 MCG Inhalation Powder Cap Kit of 5 INH SCH (11:28)
[2018-09-25] MEDS: Lisinopril 5 MG Tab PO SCH (11:28)
[2018-09-25] MEDS: Docusate Sodium 100 MG Cap PO SCH ×2 (11:28→20:28)
--- NOTE | 2018-09-25 13:54 | PCM.PN ---
- General Info Date of Service: 09/25/18 Admission Dx/Problem (Free Text): Pneumonia and CHF Functional Status: Reports: Tolerating Diet, Ambulating - Review of Systems General: Reports: Weakness, Appetite. Denies: Fever HEENT: Reports: No Symptoms Pulmonary: Reports: Shortness of Breath, Other (chronic continueous O2 use) Cardiovascular: Reports: Dyspnea on Exertion. Denies: Chest Pain, Edema Gastrointestinal: Reports: No Symptoms, Other (not liking the food but states she does have an appetite) Genitourinary: Reports: No Symptoms Musculoskeletal: Reports: Back Pain Neurological: Reports: No Symptoms Psychiatric: Reports: No Symptoms - Patient Data Vitals - Most Recent: Last Vital Signs Temp 98 F 09/25/18 06:44 Pulse 59 L 09/25/18 11:13 Resp 16 09/25/18 06:44 BP 117/49 L 09/25/18 11:28 Pulse Ox 93 L 09/25/18 06:44 Weight - Most Recent: 111 lb I&O - Last 24 Hours: Intake & Output 09/24/18 09/25/18 09/25/18 22:59 06:59 14:59 Intake Total 470 451 Output Total 300 Balance 470 151 Lab Results Last 24 Hours: Laboratory Results - last 24 hr 09/24/18 09/25/18 09/25/18 Range/Units 18:00 06:27 08:00 Sodium 146 H D 144 (136-145) mmol/L Potassium 4.3 (3.3-5.3) mmol/L Chloride 106 (98-115) mmol/L Carbon Dioxide 32.0 (21.0-32.0) mmol/L Anion Gap 10.3 (5-15) mmol/L BUN 22 (6-25) mg/dL Creatinine 1.02 (0.51-1.17) mg/dL Est Cr Clr Drug Dosing 31.07 mL/min Estimated GFR (MDRD) 52 mL/min Glucose 110 H (75 - 99) mg/dL POC Glucose 137 H (74-106) mg/dl Calcium 9.0 (8.7-10.3) mg/dL Erick Results Last 24 Hours: Microbiology 09/23/18 11:20 Aerobic Blood Culture - Preliminary Blood - Venous - Lab Draw NO GROWTH AFTER 2 DAYS Anaerobic Blood Culture - Preliminary NO GROWTH AFTER 2 DAYS 03/28/19 11:05 Aerobic Blood Culture - Preliminary Blood - Venous NO GROWTH AFTER 2 DAYS Anaerobic Blood Culture - Preliminary NO GROWTH AFTER 2 DAYS Med Orders - Current: Current Medications Albuterol (Ventolin Hfa) 0 gm INH Q4H PRN PRN Reason: Shortness of Breath Albuterol (Proventil Neb Soln) 2.5 mg NEB QID PRN PRN Reason: Shortness of Breath Albuterol/Ipratropium (Duoneb 3.0-0.5 Mg/3 Ml) 3 ml INH QID PRN PRN Reason: Shortness of Breath Allopurinol (Zyloprim) 200 mg PO DAILY [facility] Last Admin: 09/25/18 11:09 Dose: 200 mg Arformoterol Tartrate (Brovana) 15 mcg INH BIDRT [facility] Last Admin: 09/25/18 09:09 Dose: 15 mcg Ascorbic Acid (Vitamin C) 250 mg PO Q48H [facility] Last Admin: 09/24/18 12:32 Dose: 250 mg Atorvastatin Calcium (Lipitor) 40 mg PO BEDTIME [facility] Last Admin: 09/24/18 20:37 Dose: 40 mg Baclofen (Lioresal) 5 mg PO TID [facility] Last Admin: 09/25/18 10:00 Dose: 5 mg Docusate Sodium (Colace) 100 mg PO BID [facility] Last Admin: 09/25/18 11:28 Dose: 100 mg Furosemide (Lasix) 20 mg PO DAILY [facility] Levofloxacin/Dextrose 250 mg/ (Premix) 50 mls @ 50 mls/hr IV Q48H [facility] Last Admin: 09/23/18 20:55 Dose: 50 mls/hr Levofloxacin/Dextrose 500 mg/ (Premix) 100 mls @ 100 mls/hr IV Q48H [facility] Last Admin: 09/23/18 22:06 Dose: 100 mls/hr Levothyroxine Sodium (Synthroid) 100 mcg PO ACBREAKFAST [facility] Last Admin: 09/25/18 06:30 Dose: 100 mcg Lisinopril (Prinivil) 5 mg PO DAILY [facility] Last Admin: 09/25/18 11:28 Dose: 5 mg Metoprolol Tartrate (Lopressor) 12.5 mg PO BID [facility] Last Admin: 09/25/18 11:13 Dose: 12.5 mg Omeprazole (Omeprazole) 40 mg PO ACBREAKFAST [facility] Last Admin: 09/25/18 06:30 Dose: 40 mg Ondansetron HCl (Zofran Odt) 4 mg PO Q4H PRN PRN Reason: Nausea Dapsone 100mg Tablet 1 each PO DAILY [facility] Last Admin: 09/25/18 11:28 Dose: 1 each Polyethylene Glycol (Miralax) 17 gm PO DAILY@08 [facility] Last Admin: 09/25/18 09:09 Dose: 17 gm Polysaccharide Iron Complex (Ferrex 150) 150 mg PO Q48H [facility] Last Admin: 09/24/18 12:32 Dose: 150 mg Potassium Chloride (Klor-Con 10) 10 meq PO DAILY@0800 [facility] Last Admin: 09/24/18 08:31 Dose: 10 meq Prednisone (Prednisone) 10 mg PO WITHBREAKFAST [facility] Last Admin: 09/25/18 09:09 Dose: 10 mg Roflumilast (Daliresp) 500 mcg PO DAILY [facility] Last Admin: 09/25/18 11:09 Dose: 500 mcg Sodium Chloride (Saline Flush) 10 ml FLUSH Q8HR PRN PRN Reason: keep vein open Last Admin: 09/23/18 21:08 Dose: 10 ml Sodium Chloride (Normal Saline) 100 ml IV ASDIRECTED [facility] Sotalol HCl (Betapace) 120 mg PO DAILY [facility] Last Admin: 09/25/18 11:09 Dose: 120 mg Tiotropium [place] (Spiriva Handihaler) 18 mcg INH DAILY [facility] Last Admin: 09/25/18 11:28 Dose: 18 mcg Venlafaxine HCl (Effexor Xr) 150 mg PO DAILY [facility] Last Admin: 09/25/18 11:09 Dose: 150 mg Warfarin Sodium (Coumadin) 2.5 mg PO MOFR@1800 [facility] Last Admin: 09/24/18 17:52 Dose: 2.5 mg Warfarin Sodium (Coumadin) 5 mg PO SUTUWETHSA@1800 [facility] Last Admin: 09/23/18 18:13 Dose: 5 mg Warfarin Sodium (Pharmacy To Dose - Warfarin) 1 dose PO ASDIRECTED [facility] Discontinued Medications Atropine Sulfate (Atropine 0.1 Mg/Ml) 0 mg IVPUSH ASDIRECTED PRN PRN Reason: Heart Dapsone (Dapsone) 100 mg PO DAILY [facility] Last Admin: 09/23/18 15:01 Dose: Not Given Epinephrine HCl (Epinephrine 1:10,000) 1 mg IVPUSH ASDIRECTED PRN PRN Reason: Heart Furosemide (Lasix) 40 mg IVPUSH BID [facility] Last Admin: 09/23/18 08:42 Dose: 40 mg Furosemide (Lasix) 40 mg IVPUSH DAILY [facility] Dextrose/Water (Dextrose 5% In Water) 1,000 mls @ 50 mls/hr IV ASDIRECTED [facility] Last Admin: 09/24/18 12:06 Dose: 50 mls/hr Lidocaine HCl (Xylocaine 2%) 0 mg IVPUSH ASDIRECTED PRN PRN Reason: Heart Nitroglycerin (Nitrostat) 0.4 mg SL ASDIRECTED PRN PRN Reason: Heart Potassium Bicarb/Potassium Chloride (Potassium Chloride, Effervescent) 25 meq PO DAILY [facility] Last Admin: 09/23/18 12:23 Dose: 25 meq Potassium Bicarb/Potassium Chloride (Potassium Chloride, Effervescent) 25 meq PO DAILY [facility] Last Admin: 09/23/18 18:13 Dose: 25 meq - Exam Quality Assessment: Supplemental Oxygen General: Alert, Oriented Neck: Supple Lungs: Crackles (crackles at left base) Cardiovascular: Regular Rate, Regular Rhythm GI/Abdominal Exam: Soft, Non-Tender Extremities: No Pedal Edema, Other (wearing support hose) Psy/Mental Status: Alert, Normal Affect, Normal Mood Physical Findings Comments:: Pt has gained 2#. - Problem List Review Problem List Initiated/Reviewed/Updated: Yes - My Orders Last 24 Hours: My Active Orders 09/26/18 05:00 BASIC METABOLIC PANEL,BMP [CHEM] Routine CBC WITH MANUAL DIFF [HEME] Routine 09/26/18 09:00 Furosemide [Lasix] 20 mg PO DAILY - Plan Plan:: Jossie is an 83-year-old female from an assisted living facility that was admitted 09/22/18 due to shortness of breath and hypoxia in the low 80s while on oxygen with increased respiratory rate. At the time the patient denied any fever , chills or cough and initial interpretation of chest x-ray demonstrated large left pleural effusion therefore she was admitted for diuresis and pulmonary toileting. Final interpretation of chest x-ray demonstrates patient to have both LLL and RLL (L>R) with consolidation and parapneumonic effusions. Small right-sided pleural effusion and mild right basilar infiltrate/atelectasis Code status: full code Room 121 Update on rounds, sitting in chair, eating, conversing, no acute distress, only mild cough with no sputum. Started low-dose levofloxacin 09/23/18. Initially patient was slightly over diuresed. At this time her renal functions are WNL with Creat 1.02, BUN 22, GFR 52. She is up 2 pounds. Primary hospital problems Pneumonia, CAP, LLL and RLL (L>R) with consolidation and parapneumonic effusions. Pleural effusion, small right-side superimposing right basilar infiltrate/ atelectasis Leukocytosis, improving Hypoxemia, proving Hypernatremia, resolved Hypokalemia, resolved, will resume potassium with restart of Lasix Multiple drug allergies Chronic but stable problems Hypothyroidism, uncontrolled COPD: Stable. Continue baseline oxygen, Pulmicort, Daliresp, Spiriva, and prn albuterol. CAD, no ischemic picture HFpEF, Currently asymptomatic with slightly fluid depleted status. Continue metoprolol and lisinopril. HTN/HLD, stable GERD, Continue PPI. Anemia, CHRISTIAN, Suyapa's granulomatosis, Continue dapsone and prednisone. Chronic back pain: Continue [place] prn and baclofen TID. Depression, Continue Effexor. 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 Continue renal dose levaquin and albuterol/ DuoNebs prn. Pulmonary toileting. She is also on prednisone for Suyapa's granulomatosis. Chronic diastolic heart failure: Pt's lasix was originally held due to over diuresis. Wt is up 2#, sodium now WNL and renal functions are WNL. Will stop IV fluids and resume lasix 20 mg po daily. Anticipate discharge back to assisted living facility Thursday on oral antibiotic therapy as long as clinical course continues to improve.
[2018-09-25] MEDS: Warfarin 5 MG Tab PO SCH (18:32)
[2018-09-25] MEDS: Levofloxacin/Dextrose 5%-Water 250 MG in Premix Bag 1 BAG IV SCH (20:22)
[2018-09-25] MEDS: Sodium Chloride 0.9% 10 ML Syringe FLUSH PRN (20:27)
[2018-09-25] MEDS: atorvaSTATin 40 MG Tab PO SCH (20:28)
[2018-09-25] MEDS: Levofloxacin/Dextrose 5%-Water 500 MG in Premix Bag 1 BAG IV SCH (22:00)
[2018-09-26] MEDS: Arformoterol 15 MCG/2 ML Neb Soln INH SCH ×2 (07:38→21:22)
[2018-09-26] MEDS: Polyethylene Glycol 3350 Powder 17 GM Packet PO SCH (07:41)
[2018-09-26] MEDS: Omeprazole 20 MG Cap.CR PO SCH (07:41)
[2018-09-26] MEDS: Levothyroxine 100 MCG Tab PO SCH (07:41)
[2018-09-26] MEDS: predniSONE 10 MG Tab PO SCH (07:42)
[2018-09-26 07:56] LABS: ANION GAP 14.9 mmol/L (5-15)
[2018-09-26] MEDS: Furosemide 20 MG Tab PO SCH (08:25)
[2018-09-26] MEDS: Allopurinol 100 MG Tab PO SCH (08:26)
[2018-09-26] MEDS: Roflumilast 500 MCG Tab PO SCH (08:26)
[2018-09-26] MEDS: Sotalol 80 MG Tab PO SCH (08:26)
[2018-09-26] MEDS: Venlafaxine 150 MG Cap.ER PO SCH (08:26)
[2018-09-26] MEDS: Metoprolol Tartrate 25 MG Tab PO SCH ×2 (08:27→21:19)
[2018-09-26] MEDS: Docusate Sodium 100 MG Cap PO SCH ×2 (08:27→21:19)
[2018-09-26] MEDS: Lisinopril 5 MG Tab PO SCH (08:27)
[2018-09-26] MEDS: Potassium Chloride 10 MEQ Tab.ER PO SCH (08:28)
[2018-09-26] MEDS: Baclofen 10 MG Tab PO SCH ×3 (08:28→21:20)
[2018-09-26] MEDS: Ascorbic Acid 500 MG Tab PO SCH (08:32)
[2018-09-26] MEDS: Iron Polysaccharides Complex 150 MG Cap PO SCH (08:32)
[2018-09-26] MEDS: Tiotropium Inhaler 18 MCG Inhalation Powder Cap Kit of 5 INH SCH (08:32)
[2018-09-26] MEDS ORDERED: Potassium Chloride 10 MEQ Tab.ER PO SCH (09:00)
--- NOTE | 2018-09-26 10:04 | PCM.PN ---
- General Info Date of Service: 09/26/18 Functional Status: Reports: Pain Controlled, Tolerating Diet, Ambulating - Review of Systems General: Reports: No Symptoms. Denies: Fever Pulmonary: Reports: Other (chronic shortness of breath with continuous oxygen use. States her breathing feels at it's baseline) Cardiovascular: Reports: Dyspnea on Exertion (chronic). Denies: Chest Pain Gastrointestinal: Reports: No Symptoms, Other (reports usually has soft stool in her colostomy bag in the morning. She did not have stool in the bag this morning. Uses stool softener bid.) Musculoskeletal: Reports: Back Pain Neurological: Reports: No Symptoms Psychiatric: Reports: No Symptoms - Patient Data Vitals - Most Recent: Last Vital Signs Temp 97.2 F 09/26/18 07:00 Pulse 68 09/26/18 08:27 Resp 16 09/26/18 07:00 BP 156/64 H 09/26/18 08:27 Pulse Ox 94 L 09/26/18 07:42 Weight - Most Recent: 111 lb 3.2 oz I&O - Last 24 Hours: Intake & Output 09/25/18 09/26/18 09/26/18 22:59 06:59 14:59 Intake Total 285 0 Output Total 400 450 Balance -115 -450 Lab Results Last 24 Hours: Laboratory Results - last 24 hr 09/26/18 09/26/18 09/26/18 Range/Units 07:15 07:15 07:15 WBC 9.48 (5.00-10.00) 10^3/uL RBC 2.53 L (3.80-5.50) 10^6/uL Hgb 9.3 L (12.0-16.0) g/dL Hct 29.9 L (37.0-47.0) % MCV 118.2 H (82.0-92.0) fL MCH 36.8 H (27.0-31.0) pg MCHC 31.1 L (32.0-36.0) g/dL RDW 14.7 H (11.5-14.5) % RDW Coeff of Sydnee 14.7 Plt Count 177 (150-400) 10^3/uL MPV 12.2 H (7.4-10.4) fL Neutrophils % (Manual) 66 (50-70) % Lymphocytes % (Manual) 23 (20-40) % Monocytes % (Manual) 8 (2-8) % Eosinophils % (Manual) 3 (1-3) % Absolute Neutrophils 6.26 Lymphocytes # (Manual) 2.18 Monocytes # (Manual) 0.76 Eosinophils # (Manual) 0.28 PT 19.5 H (8.9-11.4) SEC INR 2.0 H (0.9-1.1) Sodium 145 (136-145) mmol/L Potassium 4.3 (3.3-5.3) mmol/L Chloride 106 (98-115) mmol/L Carbon Dioxide 28.4 (21.0-32.0) mmol/L Anion Gap 14.9 (5-15) mmol/L BUN 23 (6-25) mg/dL Creatinine 1.02 (0.51-1.17) mg/dL Est Cr Clr Drug Dosing 31.07 mL/min Estimated GFR (MDRD) 52 mL/min Glucose 90 (75 - 99) mg/dL POC Glucose (74-106) mg/dl Calcium 9.3 (8.7-10.3) mg/dL 09/26/18 Range/Units 07:16 WBC (5.00-10.00) 10^3/uL RBC (3.80-5.50) 10^6/uL Hgb (12.0-16.0) g/dL Hct (37.0-47.0) % MCV (82.0-92.0) fL MCH (27.0-31.0) pg MCHC (32.0-36.0) g/dL RDW (11.5-14.5) % RDW Coeff of Sydnee Plt Count (150-400) 10^3/uL MPV (7.4-10.4) fL Neutrophils % (Manual) (50-70) % Lymphocytes % (Manual) (20-40) % Monocytes % (Manual) (2-8) % Eosinophils % (Manual) (1-3) % Absolute Neutrophils Lymphocytes # (Manual) Monocytes # (Manual) Eosinophils # (Manual) PT (8.9-11.4) SEC INR (0.9-1.1) Sodium (136-145) mmol/L Potassium (3.3-5.3) mmol/L Chloride (98-115) mmol/L Carbon Dioxide (21.0-32.0) mmol/L Anion Gap (5-15) mmol/L BUN (6-25) mg/dL Creatinine (0.51-1.17) mg/dL Est Cr Clr Drug Dosing mL/min Estimated GFR (MDRD) mL/min Glucose (75 - 99) mg/dL POC Glucose 96 (74-106) mg/dl Calcium (8.7-10.3) mg/dL Erick Results Last 24 Hours: Microbiology 09/23/18 11:20 Aerobic Blood Culture - Preliminary Blood - Venous - Lab Draw NO GROWTH AFTER 2 DAYS Anaerobic Blood Culture - Preliminary NO GROWTH AFTER 2 DAYS 09/23/18 11:05 Aerobic Blood Culture - Preliminary Blood - Venous NO GROWTH AFTER 2 DAYS Anaerobic Blood Culture - Preliminary NO GROWTH AFTER 2 DAYS Med Orders - Current: Current Medications Albuterol (Ventolin Hfa) 0 gm INH Q4H PRN PRN Reason: Shortness of Breath Albuterol (Proventil Neb Soln) 2.5 mg NEB QID PRN PRN Reason: Shortness of Breath Albuterol/Ipratropium (Duoneb 3.0-0.5 Mg/3 Ml) 3 ml INH QID PRN PRN Reason: Shortness of Breath Allopurinol (Zyloprim) 200 mg PO DAILY [facility] Last Admin: 09/26/18 08:26 Dose: 200 mg Arformoterol Tartrate (Brovana) 15 mcg INH BIDRT [facility] Last Admin: 09/26/18 07:38 Dose: 15 mcg Ascorbic Acid (Vitamin C) 250 mg PO Q48H [facility] Last Admin: 09/26/18 08:32 Dose: 250 mg Atorvastatin Calcium (Lipitor) 40 mg PO BEDTIME [facility] Last Admin: 09/25/18 20:28 Dose: 40 mg Baclofen (Lioresal) 5 mg PO TID [facility] Last Admin: 09/26/18 08:28 Dose: 5 mg Docusate Sodium (Colace) 100 mg PO BID [facility] Last Admin: 09/26/18 08:27 Dose: 100 mg Furosemide (Lasix) 20 mg PO DAILY [facility] Last Admin: 09/26/18 08:25 Dose: 20 mg Levofloxacin/Dextrose 250 mg/ (Premix) 50 mls @ 50 mls/hr IV Q48H [facility] Last Admin: 09/25/18 20:22 Dose: 50 mls/hr Levofloxacin/Dextrose 500 mg/ (Premix) 100 mls @ 100 mls/hr IV Q48H [facility] Last Admin: 09/25/18 22:00 Dose: 100 mls/hr Levothyroxine Sodium (Synthroid) 100 mcg PO ACBREAKFAST [facility] Last Admin: 09/26/18 07:41 Dose: 100 mcg Lisinopril (Prinivil) 5 mg PO DAILY [facility] Last Admin: 09/26/18 08:27 Dose: 5 mg Metoprolol Tartrate (Lopressor) 12.5 mg PO BID [facility] Last Admin: 09/26/18 08:27 Dose: 12.5 mg Omeprazole (Omeprazole) 40 mg PO ACBREAKFAST [facility] Last Admin: 09/26/18 07:41 Dose: 40 mg Ondansetron HCl (Zofran Odt) 4 mg PO Q4H PRN PRN Reason: Nausea Dapsone 100mg Tablet 1 each PO DAILY [facility] Last Admin: 09/26/18 08:25 Dose: 1 each Polyethylene Glycol (Miralax) 17 gm PO DAILY@08 [facility] Last Admin: 09/26/18 07:41 Dose: 17 gm Polysaccharide Iron Complex (Ferrex 150) 150 mg PO Q48H [facility] Last Admin: 09/26/18 08:32 Dose: 150 mg Potassium Chloride (Klor-Con 10) 10 meq PO DAILY [facility] Last Admin: 09/26/18 08:28 Dose: 10 meq Prednisone (Prednisone) 10 mg PO WITHBREAKFAST [facility] Last Admin: 09/26/18 07:42 Dose: 10 mg Roflumilast (Daliresp) 500 mcg PO DAILY [facility] Last Admin: 09/26/18 08:26 Dose: 500 mcg Sodium Chloride (Saline Flush) 10 ml FLUSH Q8HR PRN PRN Reason: keep vein open Last Admin: 09/25/18 20:27 Dose: 10 ml Sodium Chloride (Normal Saline) 100 ml IV ASDIRECTED [facility] Sotalol HCl (Betapace) 120 mg PO DAILY [facility] Last Admin: 09/26/18 08:26 Dose: 120 mg Tiotropium [place] (Spiriva Handihaler) 18 mcg INH DAILY [facility] Last Admin: 09/26/18 08:32 Dose: 18 mcg Venlafaxine HCl (Effexor Xr) 150 mg PO DAILY [facility] Last Admin: 09/26/18 08:26 Dose: 150 mg Warfarin Sodium (Coumadin) 2.5 mg PO MOFR@1800 [facility] Last Admin: 09/24/18 17:52 Dose: 2.5 mg Warfarin Sodium (Coumadin) 5 mg PO SUTUWETHSA@1800 [facility] Last Admin: 09/25/18 18:32 Dose: 5 mg Warfarin Sodium (Pharmacy To Dose - Warfarin) 1 dose PO ASDIRECTED [facility] Discontinued Medications Atropine Sulfate (Atropine 0.1 Mg/Ml) 0 mg IVPUSH ASDIRECTED PRN PRN Reason: Heart Dapsone (Dapsone) 100 mg PO DAILY [facility] Last Admin: 09/23/18 15:01 Dose: Not Given Epinephrine HCl (Epinephrine 1:10,000) 1 mg IVPUSH ASDIRECTED PRN PRN Reason: Heart Furosemide (Lasix) 40 mg IVPUSH BID [facility] Last Admin: 09/23/18 08:42 Dose: 40 mg Furosemide (Lasix) 40 mg IVPUSH DAILY [facility] Dextrose/Water (Dextrose 5% In Water) 1,000 mls @ 50 mls/hr IV ASDIRECTED [facility] Last Admin: 09/24/18 12:06 Dose: 50 mls/hr Lidocaine HCl (Xylocaine 2%) 0 mg IVPUSH ASDIRECTED PRN PRN Reason: Heart Nitroglycerin (Nitrostat) 0.4 mg SL ASDIRECTED PRN PRN Reason: Heart Potassium Bicarb/Potassium Chloride (Potassium Chloride, Effervescent) 25 meq PO DAILY [facility] Last Admin: 09/23/18 12:23 Dose: 25 meq Potassium Bicarb/Potassium Chloride (Potassium Chloride, Effervescent) 25 meq PO DAILY [facility] Last Admin: 09/23/18 18:13 Dose: 25 meq Potassium Chloride (Klor-Con 10) 10 meq PO DAILY@0800 [facility] Last Admin: 09/24/18 08:31 Dose: 10 meq Potassium Chloride (Klor-Con 10) 10 meq PO DAILY [facility] - Exam Quality Assessment: Supplemental Oxygen General: Alert, Oriented Neck: Supple Lungs: Crackles (bilateral bases) GI/Abdominal Exam: Soft, Non-Tender, Other (colostomy with scant soft brown stool) Extremities: No Pedal Edema Psy/Mental Status: Alert, Normal Affect, Normal Mood - Problem List Review Problem List Initiated/Reviewed/Updated: Yes - My Orders Last 24 Hours: My Active Orders 09/26/18 09:00 Furosemide [Lasix] 20 mg PO DAILY Potassium Chloride [Klor-Con 10] 10 meq PO DAILY 09/27/18 05:00 CBC WITH AUTO DIFF [HEME] Routine INR,PT,PROTHROMBIN TIME [COAG] Routine - Plan Plan:: Jossie is an 83-year-old female from an assisted living facility that was admitted 09/22/18 due to shortness of breath and hypoxia in the low 80s while on oxygen with increased respiratory rate. At the time the patient denied any fever , chills or cough and initial interpretation of chest x-ray demonstrated large left pleural effusion therefore she was admitted for diuresis and pulmonary toileting. Final interpretation of chest x-ray demonstrates patient to have both LLL and RLL (L>R) with consolidation and parapneumonic effusions. Small right-sided pleural effusion and mild right basilar infiltrate/atelectasis Code status: full code Room 121 Update 09/26/18, sitting in chair, eating, conversing, no acute distress, only mild cough with no sputum. Started low-dose levofloxacin 09/23/18. Initially patient was slightly over diuresed. At this time her renal functions are WNL. She was up 2 pounds yesterday and her lasix was restarted. There is no change in her weight today. Primary hospital problems Pneumonia, CAP, LLL and RLL (L>R) with consolidation and parapneumonic effusions. Pleural effusion, small right-side superimposing right basilar infiltrate/ atelectasis Leukocytosis, resolved Hypoxemia, improving Hypernatremia, resolved Hypokalemia, resolved, will resume potassium with restart of Lasix Multiple drug allergies Chronic but stable problems Hypothyroidism, uncontrolled COPD: Stable. Continue baseline oxygen, Pulmicort, Daliresp, Spiriva, and prn albuterol. CAD, no ischemic picture HFpEF, Currently asymptomatic. Continue metoprolol and lisinopril. HTN/HLD, stable GERD, Continue PPI. Anemia, CHRISTIAN, essentially unchanged. Hgb 9.3 which is consistent with [facility] records. She continues on FeSO4 with Vitamin C Suyapa's granulomatosis, Continue dapsone and prednisone. Chronic back pain: Continue [place] prn and baclofen TID. Depression, Continue Effexor. 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 Her last TSH in the clinic was 71.47 on 08/27/18 and her levothyroxine was increased. She is due to recheck the TSH in October. PLAN: Pneumonia, CAP, LLL and RLL: Improving. Continue renal dose levaquin and albuterol/ DuoNebs prn. Pulmonary toileting. She is also on prednisone for Suyapa's granulomatosis. Chronic diastolic heart failure: Pt's lasix was originally held due to over diuresis. Wt was up 2# yesterday, sodium is WNL and renal functions are WNL. IV fluids were stopped yesterday and lasix was restarted at 20 mg po daily. There was essentially no weight change in the last 24 hours. She reports her breathing is at it's baseline. Constipation: continue bid stool softeners. If no stool today, pt is to ask for prune juice. Anticipate discharge back to assisted living facility Thursday on oral antibiotic therapy as long as clinical course continues to improve.
[2018-09-26] MEDS: Warfarin 5 MG Tab PO SCH (18:09)
[2018-09-26] MEDS: atorvaSTATin 40 MG Tab PO SCH (21:19)
[2018-09-27] MEDS: Levothyroxine 100 MCG Tab PO SCH (07:48)
[2018-09-27] MEDS: Omeprazole 20 MG Cap.CR PO SCH (07:48)
[2018-09-27] MEDS: Polyethylene Glycol 3350 Powder 17 GM Packet PO SCH (08:19)
[2018-09-27] MEDS: Tiotropium Inhaler 18 MCG Inhalation Powder Cap Kit of 5 INH SCH (08:19)
[2018-09-27] MEDS: Furosemide 20 MG Tab PO SCH (08:20)
[2018-09-27] MEDS: Docusate Sodium 100 MG Cap PO SCH (08:20)
[2018-09-27] MEDS: Venlafaxine 150 MG Cap.ER PO SCH (08:20)
[2018-09-27] MEDS: Roflumilast 500 MCG Tab PO SCH (08:20)
[2018-09-27] MEDS: Sotalol 80 MG Tab PO SCH (08:20)
[2018-09-27] MEDS: Allopurinol 100 MG Tab PO SCH (08:21)
[2018-09-27] MEDS: Potassium Chloride 10 MEQ Tab.ER PO SCH (08:21)
[2018-09-27] MEDS: Lisinopril 5 MG Tab PO SCH (08:21)
[2018-09-27] MEDS: Baclofen 10 MG Tab PO SCH (08:21)
[2018-09-27] MEDS: predniSONE 10 MG Tab PO SCH (08:21)
[2018-09-27] MEDS: Metoprolol Tartrate 25 MG Tab PO SCH (08:21)
[2018-09-27 08:22] VITALS: BP 148/67
[2018-09-27] MEDS: Arformoterol 15 MCG/2 ML Neb Soln INH SCH (08:31)
--- NOTE | 2018-09-27 09:26 | PCM.DCSUM1 ---
Discharge Summary - Hospital Course Diagnosis: Stroke: No - Discharge Data Discharge Date: 09/27/18 Discharge Disposition: Home, Self-Care 01 Condition: Fair - Patient Instructions Diet: Usual Diet as Tolerated Activity: As Tolerated, Cough & Deep Breathe Driving: Do Not Drive Showering/Bathing: May Shower Notify Provider of: Fever Other/Special Instructions: use your breathing device several times throughout the day. Use your NuStep as directed. Take your antibiotic as directed - Discharge Plan *PRESCRIPTION DRUG MONITORING PROGRAM REVIEWED*: Not Applicable *COPY OF PRESCRIPTION DRUG MONITORING REPORT IN PATIENT JACKI: Not Applicable Prescriptions/Med Rec: Levofloxacin [Levaquin] 750 mg PO Q48H #4 tablet Home Medications: Home Meds Cholecalciferol (Vitamin D3) [Vitamin D3] 1,000 unit PO DAILY@0800 09/27/13 [ History] Albuterol Sulfate [Albuterol Sulfate HFA] 2 puff INH Q4HR PRN 08/28/14 [History] Omeprazole [Prilosec] 40 mg PO ACBREAKFAST 01/20/15 [History] Venlafaxine [Effexor XR] 150 mg PO DAILY 04/12/15 [History] Docusate Sodium [Colace] 100 mg PO BID 06/27/15 [History] Albuterol [Proventil Neb Soln] 2.5 mg NEB QID PRN 02/25/16 [History] Potassium Chloride [K-Tab ER] 10 meq PO DAILY@0800 02/25/16 [History] Warfarin [Coumadin] 5 mg PO SUTUWETHSA@1800 05/11/16 [History] Dapsone 100 mg PO DAILY 06/19/16 [History] Lisinopril [Prinivil] 5 mg PO DAILY 06/19/16 [History] predniSONE [Prednisone] 10 mg PO WITHBREAKFAST 07/17/16 [History] Metoprolol Tartrate 12.5 mg PO BID 11/08/16 [History] Sotalol HCl [Sotalol] 120 mg PO DAILY #30 tablet 11/12/16 [Rx] Clindamycin HCl 600 mg PO ASDIRECTED PRN 01/16/17 [History] Ondansetron [Zofran] 4 mg PO Q4H PRN 01/16/17 [History] Warfarin [Coumadin] 2.5 mg PO MOFR@1800 01/16/17 [History] Roflumilast [Daliresp] 500 mcg PO DAILY #30 tablet 01/20/17 [Rx] Menthol [Biofreeze] 1 applic TOP BID PRN 05/21/17 [History] Polyethylene Glycol 3350 [MiraLAX] 17 gm PO DAILY@08 05/21/17 [History] Arformoterol [Brovana] 15 mcg INH BID 08/01/17 [History] Furosemide [Lasix] 20 mg PO DAILY 12/09/17 [History] Multivitamin [Multivitamins] 1 cap PO DAILY 12/09/17 [History] Albuterol/Ipratropium [DuoNeb 3.0-0.5 MG/3 ML] 3 ml INH QID PRN 02/24/18 [ History] Denosumab [Prolia] 60 mg SUBCUT Q180D 02/24/18 [History] Tiotropium [Spiriva HandiHaler] 18 mcg INH DAILY 02/24/18 [History] atorvaSTATin [Lipitor] 40 mg PO BEDTIME 02/24/18 [History] Allopurinol [Zyloprim] 200 mg PO DAILY 05/08/18 [History] Hydrocodone/Acetaminophen [Hydrocodon-Acetaminophen 5-325] 1 - 2 tab PO Q6H PRN 05/08/18 [History] Rup Rub 1 gm TOP BID 05/08/18 [History] Baclofen 5 mg PO TID 07/11/18 [History] Iron,Carbonyl/Ascorbic Acid [Vitron-C Tablet] 1 each PO Q48H #15 tablet. 07/12 [Rx] Levothyroxine [Synthroid] 100 mcg PO ACBREAKFAST 09/22/18 [History] Levofloxacin [Levaquin] 750 mg PO Q48H #4 tablet 09/27/18 [Rx] - Discharge Summary/Plan Comment DC Time >30 min.: Yes Discharge Summary/Plan Comment: Final diagnosis Pneumonia, CAP, LLL and RLL with consolidation and parapneumonic effusions. Pleural effusions Hypothyroidism, COPD: Stable. CAD Anemia, CHRISTIAN HFpEF, HTN/HLD, stable GERD, Anemia, CHRISTIAN, Suyapa's granulomatosis, Chronic back pain: Depression, Atrial fibrillation Hx TAVR Brief summary Jossie is an 83-year-old female that was admitted due to shortness of breath and dyspnea and hypoxia. Initially it was thought she had significant pleural effusions however chest x-ray determine patient have LLL and RLL with consolidation and parapneumonic effusions long with small right-sided pleural effusion and mild right basilar infiltrate/atelectasis. She was admitted and placed on IV antibiotics. Hospital course Went fairly well, she was placed on IV Levaquin renal dose. Leukocytosis improved, her hypoxia improved, she did have hyponatremia thought likely due to water deficit and this was gently corrected. Sodium level on discharge was normal. He did have slight hypokalemia and this was corrected. He was given Lasix on admission however she did become a little dry and hypernatremia so this was held and gentle electrolyte free water was given. Cultures were assessed and no growth. Did quite well on her pulmonary toileting and did have minimal mucus production. She never became hemodynamically unstable and her weight on discharge was 109 pounds--2 pounds from her admitting weight. Her breathing is now at her baseline. Medication changes/adjustments upon discharge Levaquin 750 mg every 48h 4 doses Disposition Patient will be discharged from the hospital back to her to stay living facility. I had offered the patient 4 seasons for approximately 2 weeks for slight restorative care however patient refused. The patient is back to her baseline guarding her cardiopulmonary status she is still considered high risk for readmission will need close follow-up care. Appointment will be made. She is due to recheck the TSH in October. - General Info Functional Status: Reports: Pain Controlled - Review of Systems General: Reports: No Symptoms HEENT: Reports: No Symptoms Pulmonary: Denies: Shortness of Breath, Cough, Sputum Cardiovascular: Reports: No Symptoms Gastrointestinal: Denies: Abdominal Pain Genitourinary: Reports: No Symptoms - Patient Data Vitals - Most Recent: Last Vital Signs Temp 97.8 F 09/27/18 06:58 Pulse 61 09/27/18 08:21 Resp 16 09/27/18 06:58 BP 148/67 H 09/27/18 08:21 Pulse Ox 94 L 09/27/18 06:58 Weight - Most Recent: 109 lb 1 oz I&O - Last 24 hours: Intake & Output 09/26/18 09/27/18 09/27/18 22:59 06:59 14:59 Intake Total 200 50 Output Total 400 Balance -200 50 Lab Results - Last 24 hrs: Laboratory Results - last 24 hr 09/27/18 09/27/18 09/27/18 Range/Units 06:14 07:20 07:20 WBC 10.09 H (5.00-10.00) 10^3/uL RBC 2.47 L (3.80-5.50) 10^6/uL Hgb 8.9 L (12.0-16.0) g/dL Hct 29.1 L (37.0-47.0) % MCV 117.8 H (82.0-92.0) fL MCH 36.0 H (27.0-31.0) pg MCHC 30.6 L (32.0-36.0) g/dL RDW 14.4 (11.5-14.5) % Plt Count 157 (150-400) 10^3/uL MPV 11.8 H (7.4-10.4) fL Immature Gran % (Auto) 1.3 (0.0-5.0) % Neut % (Auto) 65.1 (50.0-70.0) % Lymph % (Auto) 22.2 (20.0-40.0) % [place] % (Auto) 8.6 H (2.0-8.0) % Eos % (Auto) 2.0 (1.0-3.0) % Baso % (Auto) 0.8 (0.0-1.0) % Immature Gran # (Auto) 0.13 (0.00-0.50) 10^3/uL Neut # (Auto) 6.57 (2.50-7.00) 10^3/uL Lymph # (Auto) 2.24 (1.00-4.00) 10^3/uL [place] # (Auto) 0.87 H (0.10-0.80) 10^3/uL Eos # (Auto) 0.20 (0.10-0.30) 10^3/uL Baso # (Auto) 0.08 (0.00-0.10) 10^3/uL Macrocytosis 1+ slight Elliptocytes Occasional Schistocytes 1+ slight PT 21.5 H (8.9-11.4) SEC INR 2.2 H (0.9-1.1) POC Glucose 103 (74-106) mg/dl TRENT Results - Last 24 hrs: Microbiology 09/23/18 11:20 Aerobic Blood Culture - Preliminary Blood - Venous - Lab Draw NO GROWTH AFTER 3 DAYS Anaerobic Blood Culture - Preliminary NO GROWTH AFTER 3 DAYS 09/23/18 11:05 Aerobic Blood Culture - Preliminary Blood - Venous NO GROWTH AFTER 3 DAYS Anaerobic Blood Culture - Preliminary NO GROWTH AFTER 3 DAYS Med Orders - Current: Current Medications Albuterol (Ventolin Hfa) 0 gm INH Q4H PRN PRN Reason: Shortness of Breath Albuterol (Proventil Neb Soln) 2.5 mg NEB QID PRN PRN Reason: Shortness of Breath Albuterol/Ipratropium (Duoneb 3.0-0.5 Mg/3 Ml) 3 ml INH QID PRN PRN Reason: Shortness of Breath Allopurinol (Zyloprim) 200 mg PO DAILY [facility] Last Admin: 09/27/18 08:21 Dose: 200 mg Arformoterol Tartrate (Brovana) 15 mcg INH BIDRT [facility] Last Admin: 09/27/18 08:31 Dose: 15 mcg Ascorbic Acid (Vitamin C) 250 mg PO Q48H [facility] Last Admin: 09/26/18 08:32 Dose: 250 mg Atorvastatin Calcium (Lipitor) 40 mg PO BEDTIME [facility] Last Admin: 09/26/18 21:19 Dose: 40 mg Baclofen (Lioresal) 5 mg PO TID [facility] Last Admin: 09/27/18 08:21 Dose: 5 mg Docusate Sodium (Colace) 100 mg PO BID [facility] Last Admin: 09/27/18 08:20 Dose: 100 mg Furosemide (Lasix) 20 mg PO DAILY [facility] Last Admin: 09/27/18 08:20 Dose: 20 mg Levofloxacin/Dextrose 250 mg/ (Premix) 50 mls @ 50 mls/hr IV Q48H [facility] Last Admin: 09/25/18 20:22 Dose: 50 mls/hr Levofloxacin/Dextrose 500 mg/ (Premix) 100 mls @ 100 mls/hr IV Q48H [facility] Last Admin: 09/25/18 22:00 Dose: 100 mls/hr Levothyroxine Sodium (Synthroid) 100 mcg PO ACBREAKFAST [facility] Last Admin: 09/27/18 07:48 Dose: 100 mcg Lisinopril (Prinivil) 5 mg PO DAILY [facility] Last Admin: 09/27/18 08:21 Dose: 5 mg Metoprolol Tartrate (Lopressor) 12.5 mg PO BID [facility] Last Admin: 09/27/18 08:21 Dose: 12.5 mg Omeprazole (Omeprazole) 40 mg PO ACBREAKFAST [facility] Last Admin: 09/27/18 07:48 Dose: 40 mg Ondansetron HCl (Zofran Odt) 4 mg PO Q4H PRN PRN Reason: Nausea Dapsone 100mg Tablet 1 each PO DAILY [facility] Last Admin: 09/27/18 08:25 Dose: 1 each Polyethylene Glycol (Miralax) 17 gm PO DAILY@08 [facility] Last Admin: 09/27/18 08:19 Dose: 17 gm Polysaccharide Iron Complex (Ferrex 150) 150 mg PO Q48H [facility] Last Admin: 09/26/18 08:32 Dose: 150 mg Potassium Chloride (Klor-Con 10) 10 meq PO DAILY [facility] Last Admin: 09/27/18 08:21 Dose: 10 meq Prednisone (Prednisone) 10 mg PO WITHBREAKFAST [facility] Last Admin: 09/27/18 08:21 Dose: 10 mg Roflumilast (Daliresp) 500 mcg PO DAILY [facility] Last Admin: 09/27/18 08:20 Dose: 500 mcg Sodium Chloride (Saline Flush) 10 ml FLUSH Q8HR PRN PRN Reason: keep vein open Last Admin: 09/25/18 20:27 Dose: 10 ml Sodium Chloride (Normal Saline) 100 ml IV ASDIRECTED [facility] Sotalol HCl (Betapace) 120 mg PO DAILY [facility] Last Admin: 09/27/18 08:20 Dose: 120 mg Tiotropium [place] (Spiriva Handihaler) 18 mcg INH DAILY [facility] Last Admin: 09/27/18 08:19 Dose: 18 mcg Venlafaxine HCl (Effexor Xr) 150 mg PO DAILY [facility] Last Admin: 09/27/18 08:20 Dose: 150 mg Warfarin Sodium (Coumadin) 2.5 mg PO MOFR@1800 [facility] Last Admin: 09/24/18 17:52 Dose: 2.5 mg Warfarin Sodium (Coumadin) 5 mg PO SUTUWETHSA@1800 [facility] Last Admin: 09/26/18 18:09 Dose: 5 mg Warfarin Sodium (Pharmacy To Dose - Warfarin) 1 dose PO ASDIRECTED [facility] Discontinued Medications Atropine Sulfate (Atropine 0.1 Mg/Ml) 0 mg IVPUSH ASDIRECTED PRN PRN Reason: Heart Dapsone (Dapsone) 100 mg PO DAILY [facility] Last Admin: 09/23/18 15:01 Dose: Not Given Epinephrine HCl (Epinephrine 1:10,000) 1 mg IVPUSH ASDIRECTED PRN PRN Reason: Heart Furosemide (Lasix) 40 mg IVPUSH BID [facility] Last Admin: 09/23/18 08:42 Dose: 40 mg Furosemide (Lasix) 40 mg IVPUSH DAILY [facility] Dextrose/Water (Dextrose 5% In Water) 1,000 mls @ 50 mls/hr IV ASDIRECTED [facility] Last Admin: 09/24/18 12:06 Dose: 50 mls/hr Lidocaine HCl (Xylocaine 2%) 0 mg IVPUSH ASDIRECTED PRN PRN Reason: Heart Nitroglycerin (Nitrostat) 0.4 mg SL ASDIRECTED PRN PRN Reason: Heart Potassium Bicarb/Potassium Chloride (Potassium Chloride, Effervescent) 25 meq PO DAILY [facility] Last Admin: 09/23/18 12:23 Dose: 25 meq Potassium Bicarb/Potassium Chloride (Potassium Chloride, Effervescent) 25 meq PO DAILY [facility] Last Admin: 09/23/18 18:13 Dose: 25 meq Potassium Chloride (Klor-Con 10) 10 meq PO DAILY@0800 [facility] Last Admin: 09/24/18 08:31 Dose: 10 meq Potassium Chloride (Klor-Con 10) 10 meq PO DAILY [facility] - Exam Quality Assessment: Reports: Supplemental Oxygen General: Reports: Alert Lungs: Reports: Clear to Auscultation, Normal Respiratory Effort
--- NOTE | 2018-09-27 10:08 | CR ---
[id number] RAD/RAD Chest PA And Lateral EXAM: RAD Chest PA And Lateral INDICATION: COUGH. COMPARISON: April 2018. DISCUSSION: There is a left lung base parenchymal opacity suspicious for pneumonia. Parenchymal opacity in the right lung base is more consistent with sequela of scarring or atelectasis. Stable enlargement of the cardiomediastinal silhouette. IMPRESSION: Left lung base parenchymal opacity suspicious for pneumonia. Zaki Gill MD 09/27/18 1007 Thank you for allowing us to participate in the care of your patient.
== END 2018-09-27 10:45 | disposition home or self-care (01) | DRG 194 ==
LOC: KA.MS 12:25
PROVIDERS: ADMIT Physician Assistant; ATTEND Family Medicine
DX: J18.9 Pneumonia, unspecified organism (principal); I13.0 Hypertensive heart and chronic kidney disease with heart failure and stage 1 through stage 4 chronic kidney disease, or unspecified chronic kidney disease; I50.32 Chronic diastolic (congestive) heart failure; F33.9 Major depressive disorder, recurrent, unspecified; M31.30 Wegener's granulomatosis without renal involvement; J90 Pleural effusion, not elsewhere classified; E87.0 Hyperosmolality and hypernatremia; I48.91 Unspecified atrial fibrillation; M81.0 Age-related osteoporosis without current pathological fracture; N18.3 Chronic kidney disease, stage 3 (moderate); I73.9 Peripheral vascular disease, unspecified; K59.00 Constipation, unspecified; K21.9 Gastro-esophageal reflux disease without esophagitis; E03.9 Hypothyroidism, unspecified; E78.5 Hyperlipidemia, unspecified; T50.905A Adverse effect of unspecified drugs, medicaments and biological substances, initial encounter; Z79.01 Long term (current) use of anticoagulants; F41.9 Anxiety disorder, unspecified; I25.10 Atherosclerotic heart disease of native coronary artery without angina pectoris; J44.9 Chronic obstructive pulmonary disease, unspecified; E87.6 Hypokalemia; D50.9 Iron deficiency anemia, unspecified; G89.29 Other chronic pain; M54.9 Dorsalgia, unspecified; Z87.891 Personal history of nicotine dependence; Z86.010 Personal history of colon polyps; Z88.0 Allergy status to penicillin; Z88.8 Allergy status to other drugs, medicaments and biological substances; Z88.6 Allergy status to analgesic agent; Z91.041 Radiographic dye allergy status
CPT/HCPCS: 36415; 36416; 71046; 80048; 80053; 82962; 83880; 84295; 84484; 85007; 85025; 85027; 85610; 87040; 94640; A9270-GY; J1940; J1956; J7060

== ENCOUNTER 2019-01-04 09:40 | Observation (INO) | payer MEDICARE, BC ==
--- NOTE | 2019-01-04 09:56 | EDM.PDOC ---
ED HPI GENERAL MEDICAL PROBLEM - General Chief Complaint: Lower Extremity Injury/Pain Stated Complaint: left leg pain Time Seen by Provider: 01/04/19 09:45 Source of Information: Reports: Patient History Limitations: Reports: No Limitations - History of Present Illness INITIAL COMMENTS - FREE TEXT/NARRATIVE: 83 YO WF presents to ER from alf with complaints of left leg pain. Pt reports she has a skin tear which occurred 4 days ago from injury to murray from a walker. Pt states she didn't start developing pain until this am after nurse placed compression stockings on her leg. Pt denies swelling to lower extremity but states it feels warm to the touch. Pt denies fever/chills, no increased shortness of breath- Pt is on 3L of O2 due to COPD. Onset: Today Location: Reports: Lower Extremity, Left Quality: Reports: Ache Severity: Moderate Associated Symptoms: Reports: No Other Symptoms. Denies: Fever/Chills, Rash, Weakness - Related Data Allergies Allergy/AdvReac Type Severity Reaction Status Date / Time penicillamine Allergy Severe Anaphylactic Verified 09/22/18 13:08 Shock Penicillins Allergy Severe Anaphylactic Verified 09/22/18 13:08 Shock Cephalosporins Allergy Unknown Cannot Verified 09/22/18 13:08 Remember aspirin Allergy Other Verified 09/22/18 13:08 Carbapenems Allergy Cannot Verified 09/22/18 13:08 Remember divalproex sodium Allergy Delusions Verified 09/22/18 13:08 [From Depakote] imipenem Allergy Cannot Verified 09/22/18 13:08 Remember Iodinated Contrast- Oral and Allergy Chest Pain Verified 09/22/18 13:08 IV Dye valproic acid Allergy Confusion Verified 09/22/18 13:08 Home Meds: Home Meds Cholecalciferol (Vitamin D3) [Vitamin D3] 1,000 unit PO DAILY@0800 09/27/13 [ History] Albuterol Sulfate [Albuterol Sulfate HFA] 2 puff INH Q4HR PRN 08/28/14 [History] Omeprazole [Prilosec] 40 mg PO ACBREAKFAST 01/20/15 [History] Venlafaxine [Effexor XR] 150 mg PO DAILY 04/12/15 [History] Docusate Sodium [Colace] 100 mg PO BID 06/27/15 [History] Albuterol [Proventil Neb Soln] 2.5 mg NEB QID PRN 02/25/16 [History] Potassium Chloride [K-Tab ER] 10 meq PO DAILY@0800 02/25/16 [History] Warfarin [Coumadin] 5 mg PO SUTUWETHSA@1800 05/11/16 [History] Dapsone 100 mg PO DAILY 06/19/16 [History] Lisinopril [Prinivil] 5 mg PO DAILY 06/19/16 [History] predniSONE [Prednisone] 10 mg PO WITHBREAKFAST 07/17/16 [History] Metoprolol Tartrate 12.5 mg PO BID 11/08/16 [History] Sotalol HCl [Sotalol] 120 mg PO DAILY #30 tablet 11/12/16 [Rx] Clindamycin HCl 600 mg PO ASDIRECTED PRN 01/16/17 [History] Ondansetron [Zofran] 4 mg PO Q4H PRN 01/16/17 [History] Warfarin [Coumadin] 2.5 mg PO MOFR@1800 01/16/17 [History] Roflumilast [Daliresp] 500 mcg PO DAILY #30 tablet 01/20/17 [Rx] Menthol [Biofreeze] 1 applic TOP BID PRN 05/21/17 [History] Polyethylene Glycol 3350 [MiraLAX] 17 gm PO DAILY@08 05/21/17 [History] Arformoterol [Brovana] 15 mcg INH BID 08/01/17 [History] Furosemide [Lasix] 20 mg PO DAILY 12/09/17 [History] Multivitamin [Multivitamins] 1 cap PO DAILY 12/09/17 [History] Albuterol/Ipratropium [DuoNeb 3.0-0.5 MG/3 ML] 3 ml INH QID PRN 02/24/18 [ History] Denosumab [Prolia] 60 mg SUBCUT Q180D 02/24/18 [History] Tiotropium [Spiriva HandiHaler] 18 mcg INH DAILY 02/24/18 [History] atorvaSTATin [Lipitor] 40 mg PO BEDTIME 02/24/18 [History] Allopurinol [Zyloprim] 200 mg PO DAILY 05/08/18 [History] Hydrocodone/Acetaminophen [Hydrocodon-Acetaminophen 5-325] 1 - 2 tab PO Q6H PRN 05/08/18 [History] Rup Rub 1 gm TOP BID 05/08/18 [History] Baclofen 5 mg PO TID 07/11/18 [History] Iron,Carbonyl/Ascorbic Acid [Vitron-C Tablet] 1 each PO Q48H #15 tablet. 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,vasculitis Respiratory History: Reports: COPD, Pneumonia, Recurrent, SOB, Other (See Below) Other Respiratory History: pleural effusions, on home oxygen 3L at rest & 4L with activity Gastrointestinal History: Reports: Bowel Obstruction, Diverticulosis, GERD Genitourinary History: Reports: Chronic Renal Insuffiency, Renal Disease, Other (See Below) Other Genitourinary History: acquired cyst of kidney 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, live term births Musculoskeletal History: Reports: Arthritis, Back Pain, Chronic, Osteoporosis, Other (See Below) Other Musculoskeletal History: compression fracture of thoracolumbar vertebra Neurological History: Reports: Migraines Other Neuro History: new onset confusion starting 06/18/2016 Psychiatric History: Reports: Depression Endocrine/Metabolic History: Reports: Diabetes, Type II, Hypothyroidism, Osteoporosis Hematologic History: Reports: Anemia, Blood Transfusion(s) Immunologic History: Reports: Other (See Below) Other Immunologic History: chronic steroid use Oncologic (Cancer) History: Reports: Breast, Colon Dermatologic History: Reports: Venous Stasis Dermatitis, Other (See Below) Other Dermatologic History: discolored skin from chronic steroid use - Infectious Disease History Infectious Disease History: Reports: Chicken Pox, Measles, Mumps, Rheumatic Fever - Past Surgical History Head Surgeries/Procedures: Reports: None HEENT Surgical History: Reports: Cataract Surgery Cardiovascular Surgical History: Reports: Valve Replacement Respiratory Surgical History: Reports: Thoracentesis GI Surgical History: Reports: Colostomy Female Surgical History: Reports: Breast Biopsy, Mastectomy Endocrine Surgical History: Reports: None Neurological Surgical History: Reports: Laminectomy Musculoskeletal Surgical History: Reports: Other (See Below) Other Musculoskeletal Surgeries/Procedures:: spinal injections, laminectomy Oncologic Surgical History: Reports: Mastectomy Dermatological Surgical History: Reports: None Social & Family History - Family History Family Medical History: Noncontributory HEENT: Reports: None Cardiac: Reports: None Respiratory: Reports: None GI: Reports: None : Reports: None OBGYN: Reports: None Musculoskeletal: Reports: None Neurological: Reports: None Psychiatric: Reports: None Endocrine/Metabolic: Reports: None Hematologic: Reports: None Immunologic: Reports: None Dermatologic: Reports: None Oncologic: Reports: Colon, Pancreatic Other Oncologic Family History: parents had ca - Caffeine Use Caffeine Use: Reports: Coffee - Living Situation & Occupation Living situation: Reports: Occupation: Retired Review of Systems - Review of Systems Review Of Systems: See Below Constitutional: Reports: No Symptoms Eyes: Reports: No Symptoms Ears: Reports: No Symptoms Nose: Reports: No Symptoms Mouth/Throat: Reports: No Symptoms Respiratory: Reports: No Symptoms Cardiovascular: Reports: No Symptoms GI/Abdominal: Reports: No Symptoms Genitourinary: Reports: No Symptoms Musculoskeletal: Reports: Leg Pain (left tibia pain) Skin: Reports: No Symptoms Neurological: Reports: No Symptoms Psychiatric: Reports: No Symptoms ED EXAM, GENERAL - Physical Exam Exam: See Below Exam Limited By: No Limitations General Appearance: Alert, WD/WN, No Apparent Distress Head: Atraumatic, Normocephalic Neck: Normal Inspection, Supple, Non-Tender, Full Range of Motion Respiratory/Chest: No Respiratory Distress, Lungs Clear, Normal Breath Sounds, No Accessory Muscle Use, Chest Non-Tender Cardiovascular: Normal Peripheral Pulses, Regular Rate, Rhythm, No Edema, No Gallop, No JVD, No Murmur, No Rub GI/Abdominal: Normal Bowel Sounds, Soft, Non-Tender, No Organomegaly, No Distention, No Abnormal Bruit, No Mass Back Exam: Normal Inspection, Full Range of Motion, NT Neurological: Alert, Oriented, CN II-XII Intact, Normal Cognition, Normal Gait, Normal Reflexes, No Motor/Sensory Deficits Psychiatric: Normal Affect, Normal Mood Skin Exam: Warm, Dry, Increased Warmth, Wound/Incision (skin tear to left murray) Lymphatic: No Adenopathy Course - Orders/Labs/Meds Orders: Active Orders 24 hr Category Date Time Status Peripheral IV Care [RC] . DIRECTED Care 01/04/19 09:57 Active Tibia Fibula Lt [CR] Stat Exams 01/04/19 09:57 Ordered CULTURE WOUND [RM] Stat Lab 01/04/19 10:38 Ordered Sodium Chloride 0.9% [Saline Flush] Med 01/04/19 09:57 Active 10 ml FLUSH Q8HR PRN Peripheral IV Insertion Adult [OM.PC] Routine Oth 01/04/19 09:57 Ordered Medication Orders Sodium Chloride (Saline Flush) 10 ml FLUSH Q8HR PRN PRN Reason: keep vein open Labs: Laboratory Tests 01/04/19 01/04/19 01/04/19 Range/Units 10:05 10:05 10:05 WBC 16.17 H (5.00-10.00) 10^3/uL RBC 2.70 L (3.80-5.50) 10^6/uL Hgb 9.1 L (12.0-16.0) g/dL Hct 29.5 L (37.0-47.0) % MCV 109.3 H D (82.0-92.0) fL MCH 33.7 H (27.0-31.0) pg MCHC 30.8 L (32.0-36.0) g/dL RDW 16.2 H (11.5-14.5) % Plt Count 159 (150-400) 10^3/uL MPV 11.8 H (7.4-10.4) fL Immature Gran % (Auto) 0.6 (0.0-5.0) % Neut % (Auto) 84.5 H (50.0-70.0) % Lymph % (Auto) 8.5 L (20.0-40.0) % [place] % (Auto) 5.7 (2.0-8.0) % Eos % (Auto) 0.5 L (1.0-3.0) % Baso % (Auto) 0.2 (0.0-1.0) % Immature Gran # (Auto) 0.09 (0.00-0.50) 10^3/uL Neut # (Auto) 13.67 H (2.50-7.00) 10^3/uL Lymph # (Auto) 1.37 (1.00-4.00) 10^3/uL [place] # (Auto) 0.92 H (0.10-0.80) 10^3/uL Eos # (Auto) 0.08 L (0.10-0.30) 10^3/uL Baso # (Auto) 0.04 (0.00-0.10) 10^3/uL Macrocytosis 1+ slight Schistocytes Occasional PT 17.9 H (8.9-11.4) SEC INR 1.8 H (0.9-1.1) APTT 29.6 (23.1-31.9) SEC Sodium 146 H (136-145) mmol/L Potassium 3.7 (3.3-5.3) mmol/L Chloride 109 (98-115) mmol/L Carbon Dioxide 29.6 (21.0-32.0) mmol/L Anion Gap 11.1 (5-15) mmol/L BUN 27 H (6-25) mg/dL Creatinine 0.94 (0.51-1.17) mg/dL Est Cr Clr Drug Dosing TNP Estimated GFR (MDRD) 57 mL/min Glucose 127 H (75 - 99) mg/dL Uric Acid 4.0 (2.6-7.2) mg/dL Calcium 8.9 (8.7-10.3) mg/dL Total Bilirubin 0.6 (0.2-1.0) mg/dL AST 17 (15-37) U/L ALT 21 (12-78) U/L Alkaline Phosphatase 79 (46-116) IU/L Total Protein 5.0 L (6.4-8.2) g/dL Albumin 2.79 L (3.00-4.80) g/dL Meds: Medications Generic Name Dose Route Start Last Admin Trade Name Freq PRN Reason Stop Dose Admin Sodium Chloride 10 ml 01/04/19 09:57 Saline Flush FLUSH Q8HR PRN keep vein open Discontinued Medications Generic Name Dose Route Start Last Admin Trade Name Freq PRN Reason Stop Dose Admin Ketorolac Tromethamine 30 mg 01/04/19 09:57 Toradol IVPUSH 01/04/19 09:58 ONETIME ONE - Radiology Interpretation Free Text/Narrative:: left Tibia- NAD Departure - Departure Time of Disposition: 10:54 Disposition: Refer to Observation Condition: Good Clinical Impression: Cellulitis of lower extremity Qualifiers: Laterality: left Qualified Code(s): L03.116 - Cellulitis of left lower limb - Discharge Information Referrals: PCP,Unknown [Ordering Only Provider] - Forms: ED Department Discharge - My Orders Last 24 Hours: My Active Orders 01/04/19 09:57 Peripheral IV Care [RC] . DIRECTED Tibia Fibula Lt [CR] Stat Sodium Chloride 0.9% [Saline Flush] 10 ml FLUSH Q8HR PRN Peripheral IV Insertion Adult [OM.PC] Routine 01/04/19 10:38 CULTURE WOUND [RM] Stat - Assessment/Plan Last 24 Hours: My Active Orders 01/04/19 09:57 Peripheral IV Care [RC] . DIRECTED Tibia Fibula Lt [CR] Stat Sodium Chloride 0.9% [Saline Flush] 10 ml FLUSH Q8HR PRN Peripheral IV Insertion Adult [OM.PC] Routine 01/04/19 10:38 CULTURE WOUND [RM] Stat Assessment:: 1. Cellulitis to left lower extremity Plan: 1. Admit to medicine- Dr Julio Robins 2. rocephin 1g IV 3. Venous doppler study to rule out DVT 4. dressing to skin tear 5. supportive care
[2019-01-04] MEDS ORDERED: Sodium Chloride 0.9% 10 ML Syringe FLUSH PRN (09:57)
[2019-01-04] MEDS ORDERED: Ketorolac 30 MG/ML SDV IVPUSH ONE (09:57)
[2019-01-04 10:38] LABS: ANION GAP 11.1 mmol/L (5-15); CHLORIDE,CL 109 mmol/L (98-115); SODIUM,NA 146 mmol/L (136-145)
[2019-01-04] MEDS ORDERED: cefTRIAXone 1 GM Vial IVPUSH ONE (10:51)
--- NOTE | 2019-01-04 10:58 | CR ---
[id number] RAD/RAD Tibia Fibula Left EXAM: 2 VIEWS LEFT TIB-FIB. INDICATION: PAIN. COMPARISON: None. DISCUSSION: No fracture, dislocation or other acute osseous abnormality. Mild tricompartmental degenerative changes of the left knee. Extensive vascular calcifications. IMPRESSION: 1. No acute osseous abnormalities. Marlon Berry DO 01/04/19 1057 Thank you for allowing us to participate in the care of your patient.
[2019-01-04] MEDS ORDERED: Albuterol/Ipratropium 3.0-0.5 MG/3 ML Neb Soln INH PRN (17:03)
[2019-01-04] MEDS ORDERED: Baclofen 10 MG Tab PO PRN (17:03)
[2019-01-04] MEDS ORDERED: Ondansetron 4 MG Tab.DIS PO PRN (17:03)
--- NOTE | 2019-01-04 17:11 | PCM.HP ---
H&P History of Present Illness - General Date of Service: 01/04/19 Admit Problem/Dx: Admission Diagnosis/Problem Admission Diagnosis/Problem Cellulitis of left lower extremity - History of Present Illness Initial Comments - Free Text/Narative: Ms. Perla has been in her usual state of health, but inadvertently hit her L anterior leg on her walker on 12/30/18 resulting in a wound. Noticed that she was having discomfort of the area which was worsening on 01/03 and 01/04 resulting in her calling EMS for transport to the [facility] ED. She denies any difficulties taking medications or other new symptoms lately. In the ED, she was noted to have a laceration-skin tear and clinical concern for cellulitis or DVT. Labs notable for WBC 16 with 85% neutrophils and INR 1.8. XR unremarkable. She was given ceftriaxone 1g in the ED and admitted for further evaluation and management, for which ED provider ordered venous US. left leg Pain Score (Numeric/FACES): 5 - Related Data Allergies/Adverse Reactions: Allergies Allergy/AdvReac Type Severity Reaction Status Date / Time penicillamine Allergy Severe Anaphylactic Verified 01/04/19 12:52 Shock Penicillins Allergy Severe Anaphylactic Verified 01/04/19 12:52 Shock Cephalosporins Allergy Unknown Cannot Verified 01/04/19 12:52 Remember aspirin Allergy Other Verified 01/04/19 12:52 Carbapenems Allergy Cannot Verified 01/04/19 12:52 Remember divalproex sodium Allergy Delusions Verified 01/04/19 12:52 [From Depakote] imipenem Allergy Cannot Verified 01/04/19 12:52 Remember Iodinated Contrast- Oral and Allergy Chest Pain Verified 01/04/19 12:52 IV Dye valproic acid Allergy Confusion Verified 01/04/19 12:52 Home Medications: Home Meds Cholecalciferol (Vitamin D3) [Vitamin D3] 1,000 unit PO DAILY@0800 09/27/13 [ History] Albuterol Sulfate [Albuterol Sulfate HFA] 2 puff INH Q4HR PRN 08/28/14 [History] Omeprazole [Prilosec] 40 mg PO ACBREAKFAST 01/20/15 [History] Venlafaxine [Effexor XR] 150 mg PO DAILY 04/12/15 [History] Docusate Sodium [Colace] 100 mg PO BID 12/30/15 [History] Albuterol [Proventil Neb Soln] 2.5 mg NEB QID PRN 02/25/16 [History] Potassium Chloride [K-Tab ER] 10 meq PO DAILY@0800 02/25/16 [History] Warfarin [Coumadin] 5 mg PO SUTUWETHSA@1800 05/11/16 [History] Dapsone 100 mg PO DAILY 06/19/16 [History] Lisinopril [Prinivil] 5 mg PO DAILY 06/19/16 [History] predniSONE [Prednisone] 10 mg PO WITHBREAKFAST 07/17/16 [History] Metoprolol Tartrate 12.5 mg PO BID 11/08/16 [History] Sotalol HCl [Sotalol] 120 mg PO DAILY #30 tablet 11/12/16 [Rx] Clindamycin HCl 600 mg PO ASDIRECTED PRN 01/16/17 [History] Ondansetron [Zofran] 4 mg PO Q4H PRN 01/16/17 [History] Warfarin [Coumadin] 2.5 mg PO MOFR@1800 01/16/17 [History] Roflumilast [Daliresp] 500 mcg PO DAILY #30 tablet 01/20/17 [Rx] Menthol [Biofreeze] 1 applic TOP BID PRN 05/21/17 [History] Polyethylene Glycol 3350 [MiraLAX] 17 gm PO DAILY@08 05/21/17 [History] Arformoterol [Brovana] 15 mcg INH BID 08/01/17 [History] Furosemide [Lasix] 20 mg PO DAILY 12/09/17 [History] Multivitamin [Multivitamins] 1 cap PO DAILY 12/09/17 [History] Albuterol/Ipratropium [DuoNeb 3.0-0.5 MG/3 ML] 3 ml INH QID PRN 02/24/18 [ History] Denosumab [Prolia] 60 mg SUBCUT Q180D 02/24/18 [History] Tiotropium [Spiriva HandiHaler] 18 mcg INH DAILY 02/24/18 [History] atorvaSTATin [Lipitor] 40 mg PO BEDTIME 02/24/18 [History] Allopurinol [Zyloprim] 200 mg PO DAILY 05/08/18 [History] Hydrocodone/Acetaminophen [Hydrocodon-Acetaminophen 5-325] 1 tab PO Q6H PRN 04/15 [History] Rup Rub 1 gm TOP BID 05/08/18 [History] Baclofen 5 - 10 mg PO QID PRN 07/11/18 [History] Iron,Carbonyl/Ascorbic Acid [Vitron-C Tablet] 1 each PO Q48H #15 tablet. 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,vasculitis Respiratory History: Reports: COPD, Pneumonia, Recurrent, SOB, Other (See Below) Other Respiratory History: pleural effusions, on home oxygen 3L at rest & 4L with activity Gastrointestinal History: Reports: Bowel Obstruction, Diverticulosis, GERD Genitourinary History: Reports: Chronic Renal Insuffiency, Renal Disease, Other (See Below) Other Genitourinary History: acquired cyst of kidney 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 OB/BYN History: 6 daughters, live term births Musculoskeletal History: Reports: Arthritis, Back Pain, Chronic, Osteoporosis, Other (See Below) Other Musculoskeletal History: compression fracture of thoracolumbar vertebra Neurological History: Reports: Migraines Other Neuro History: new onset confusion starting 06/18/2016 Psychiatric History: Reports: Depression Endocrine/Metabolic History: Reports: Diabetes, Type II, Hypothyroidism, Osteoporosis Hematologic History: Reports: Anemia, Blood Transfusion(s) Immunologic History: Reports: Other (See Below) Other Immunologic History: chronic steroid use Oncologic (Cancer) History: Reports: Breast, Colon Dermatologic History: Reports: Venous Stasis Dermatitis, Other (See Below) Other Dermatologic History: discolored skin from chronic steroid use. skin tear to left lateral murray - Infectious Disease History Infectious Disease History: Reports: Chicken Pox, Measles, Mumps, Rheumatic Fever - Past Surgical History Head Surgeries/Procedures: Reports: None HEENT Surgical History: Reports: Cataract Surgery Cardiovascular Surgical History: Reports: Valve Replacement Respiratory Surgical History: Reports: Thoracentesis GI Surgical History: Reports: Colostomy Female Surgical History: Reports: Breast Biopsy, Mastectomy Endocrine Surgical History: Reports: None Neurological Surgical History: Reports: Laminectomy Musculoskeletal Surgical History: Reports: Other (See Below) Other Musculoskeletal Surgeries/Procedures:: spinal injections, laminectomy Oncologic Surgical History: Reports: Mastectomy Dermatological Surgical History: Reports: None Social & Family History - Family History Family Medical History: Noncontributory HEENT: Reports: None Cardiac: Reports: None Respiratory: Reports: None GI: Reports: None : Reports: None OBGYN: Reports: None Musculoskeletal: Reports: None Neurological: Reports: None Psychiatric: Reports: None Endocrine/Metabolic: Reports: None Hematologic: Reports: None Immunologic: Reports: None Dermatologic: Reports: None Oncologic: Reports: Colon, Pancreatic Other Oncologic Family History: parents had ca - Tobacco Use Smoking Status *Q: Former Smoker Years of Tobacco use: 50 Packs/Tins Daily: 0.5 Used Tobacco, but Quit: Yes Month/Year Tobacco Last Used: 1968 - Caffeine Use Caffeine Use: Reports: Coffee - Recreational Drug Use Recreational Drug Use: No - Living Situation & Occupation Living situation: Reports: Occupation: Retired H&P Review of Systems - Review of Systems: Review Of Systems: See Below General: Reports: Weakness, Fatigue, Decreased Appetite (chronic). Denies: Fever, Chills HEENT: Denies: Headaches, Rhinitis, Sore Throat Pulmonary: Reports: Shortness of Breath (at baseline). Denies: Wheezing, Cough , Sputum, Hemoptysis Cardiovascular: Denies: Chest Pain, Palpitations, Orthopnea, Lightheadedness, Syncope Gastrointestinal: Denies: Abdominal Pain, Constipation, Diarrhea Genitourinary: Denies: Dysuria, Frequency, Burning, Pain Musculoskeletal: Reports: Back Pain (chronic), Leg Pain. Denies: Neck Pain, Shoulder Pain, Foot Pain Skin: Reports: Bruising, Wound. Denies: Rash Neurological: Denies: Confusion, Headache, Numbness, Tingling Hematologic/Lymphatic: Reports: Anemia, Easy Bleeding, Easy Bruising Exam - Exam Exam: See Below - Vital Signs Vital Signs: Last Vital Signs Temp 37.0 C 01/04/19 15:00 Pulse 62 01/04/19 15:00 Resp 20 01/04/19 15:00 BP 178/71 H 01/04/19 15:00 Pulse Ox 92 L 01/04/19 15:00 Weight: 55.338 kg - Exam Physical Exam Comments:: GENERAL: Elderly white female appearing stated age lying in hospital bed in no acute distress. HEENT: Normocephalic, atraumatic. Conjunctiva clear. Nasal cannula in place. Mucous membranes moist, posterior pharynx unremarkable. NECK: Supple, no masses. CV: Regular rate and rhythm, 3/6 systolic murmur loudest at LUSB, no rubs or gallops. 2+ radial pulses. PULMONARY: Normal effort, clear to auscultation bilaterally but diminished in the bilateral bases, no wheezes, rales, or rhonchi. ABDOMEN: Positive bowel sounds, soft, nontender, nondistended. Ostomy well appearing. EXTREMITIES/DERMATOLOGIC: Mild edema of the L proximal anterior leg where 3cm long laceration-skin tear is noted and patient has pain to palpation surrounding , mild warmth and lonnie appearance. Diffuse ecchymosis and bilateral lower extremities with venous stasis changes. MUSCULOSKELETAL: Moves all extremities well. NEUROLOGICAL: No obvious deficits. PSYCHIATRIC: Alert, interactive, appropriate affect. - Patient Data Lab Results Last 24 hrs: Laboratory Results - last 24 hr 01/04/19 01/04/19 01/04/19 Range/Units 10:05 10:05 10:05 WBC 16.17 H (5.00-10.00) 10^3/uL RBC 2.70 L (3.80-5.50) 10^6/uL Hgb 9.1 L (12.0-16.0) g/dL Hct 29.5 L (37.0-47.0) % MCV 109.3 H D (82.0-92.0) fL MCH 33.7 H (27.0-31.0) pg MCHC 30.8 L (32.0-36.0) g/dL RDW 16.2 H (11.5-14.5) % Plt Count 159 (150-400) 10^3/uL MPV 11.8 H (7.4-10.4) fL Immature Gran % (Auto) 0.6 (0.0-5.0) % Neut % (Auto) 84.5 H (50.0-70.0) % Lymph % (Auto) 8.5 L (20.0-40.0) % Wirt % (Auto) 5.7 (2.0-8.0) % Eos % (Auto) 0.5 L (1.0-3.0) % Baso % (Auto) 0.2 (0.0-1.0) % Immature Gran # (Auto) 0.09 (0.00-0.50) 10^3/uL Neut # (Auto) 13.67 H (2.50-7.00) 10^3/uL Lymph # (Auto) 1.37 (1.00-4.00) 10^3/uL Wirt # (Auto) 0.92 H (0.10-0.80) 10^3/uL Eos # (Auto) 0.08 L (0.10-0.30) 10^3/uL Baso # (Auto) 0.04 (0.00-0.10) 10^3/uL Macrocytosis 1+ slight Schistocytes Occasional PT 17.9 H (8.9-11.4) SEC INR 1.8 H (0.9-1.1) APTT 29.6 (23.1-31.9) SEC D-Dimer, Quantitative (<400) ng/mL Sodium 146 H (136-145) mmol/L Potassium 3.7 (3.3-5.3) mmol/L Chloride 109 (98-115) mmol/L Carbon Dioxide 29.6 (21.0-32.0) mmol/L Anion Gap 11.1 (5-15) mmol/L BUN 27 H (6-25) mg/dL Creatinine 0.94 (0.51-1.17) mg/dL Est Cr Clr Drug Dosing TNP Estimated GFR (MDRD) 57 mL/min Glucose 127 H (75 - 99) mg/dL Uric Acid 4.0 (2.6-7.2) mg/dL Calcium 8.9 (8.7-10.3) mg/dL Total Bilirubin 0.6 (0.2-1.0) mg/dL AST 17 (15-37) U/L ALT 21 (12-78) U/L Alkaline Phosphatase 79 (46-116) IU/L C-Reactive Protein (0.0-0.9) mg/dL Total Protein 5.0 L (6.4-8.2) g/dL Albumin 2.79 L (3.00-4.80) g/dL 01/04/19 01/04/19 Range/Units 10:05 10:05 WBC (5.00-10.00) 10^3/uL RBC (3.80-5.50) 10^6/uL Hgb (12.0-16.0) g/dL Hct (37.0-47.0) % MCV (82.0-92.0) fL MCH (27.0-31.0) pg MCHC (32.0-36.0) g/dL RDW (11.5-14.5) % Plt Count (150-400) 10^3/uL MPV (7.4-10.4) fL Immature Gran % (Auto) (0.0-5.0) % Neut % (Auto) (50.0-70.0) % Lymph % (Auto) (20.0-40.0) % Wirt % (Auto) (2.0-8.0) % Eos % (Auto) (1.0-3.0) % Baso % (Auto) (0.0-1.0) % Immature Gran # (Auto) (0.00-0.50) 10^3/uL Neut # (Auto) (2.50-7.00) 10^3/uL Lymph # (Auto) (1.00-4.00) 10^3/uL Wirt # (Auto) (0.10-0.80) 10^3/uL Eos # (Auto) (0.10-0.30) 10^3/uL Baso # (Auto) (0.00-0.10) 10^3/uL Macrocytosis Schistocytes PT (8.9-11.4) SEC INR (0.9-1.1) APTT (23.1-31.9) SEC D-Dimer, Quantitative < 100 (<400) ng/mL Sodium (136-145) mmol/L Potassium (3.3-5.3) mmol/L Chloride (98-115) mmol/L Carbon Dioxide (21.0-32.0) mmol/L Anion Gap (5-15) mmol/L BUN (6-25) mg/dL Creatinine (0.51-1.17) mg/dL Est Cr Clr Drug Dosing Estimated GFR (MDRD) mL/min Glucose (75 - 99) mg/dL Uric Acid (2.6-7.2) mg/dL Calcium (8.7-10.3) mg/dL Total Bilirubin (0.2-1.0) mg/dL AST (15-37) U/L ALT (12-78) U/L Alkaline Phosphatase (46-116) IU/L C-Reactive Protein 0.3 (0.0-0.9) mg/dL Total Protein (6.4-8.2) g/dL Albumin (3.00-4.80) g/dL Result Diagrams: 01/05/19 07:15 01/05/19 07:15 Problem List Initiated/Reviewed/Updated: Yes Orders Last 24hrs: Active Orders 24 hr Category Date Time Status Patient Status [ADT] Routine ADT 01/04/19 10:57 Ordered Oxygen Therapy [RC] PRN Care 01/04/19 10:57 Active Pulse Oximetry [RC] PRN Care 01/04/19 10:58 Active Up With Assistance [RC] ASDIRECTED Care 01/04/19 10:57 Active VTE/DVT Education [RC] PER UNIT ROUTINE Care 01/04/19 10:57 Active Vital Signs [RC] 0300,0700,1100,1500,1900,2300 Care 01/04/19 10:57 Active Regular Diet [DIET] Diet 01/04/19 Lunch Active Venous Doppler Lwr Ext Bi [US] Stat Exams 01/04/19 10:55 Stop Req BASIC METABOLIC PANEL,BMP [CHEM] AM Lab 01/05/19 05:11 Ordered CBC WITH AUTO DIFF [HEME] AM Lab 01/05/19 05:11 Ordered INR,PT,PROTHROMBIN TIME [COAG] AM Lab 01/05/19 05:11 Ordered MISCELLANEOUS CULT [MREF] Stat Lab 01/04/19 11:00 Received Acetaminophen/HYDROcodone [[place] 325-5 MG] Med 01/04/19 17:03 Ordered 1 tab PO Q6H PRN Albuterol/Ipratropium [DuoNeb 3.0-0.5 MG/3 ML] Med 01/04/19 17:03 Ordered 3 ml INH QID PRN Allopurinol [Zyloprim] Med 01/05/19 09:00 Ordered 200 mg PO DAILY Arformoterol [Brovana] Med 01/04/19 21:00 Ordered 15 mcg INH BID Baclofen [Lioresal] Med 01/04/19 17:03 Ordered 5 - 10 mg PO QID PRN Cholecalciferol (Vitamin D3) [Vitamin D3] Med 01/05/19 08:00 Ordered 1,000 unit PO DAILY@0800 Dapsone Med 01/05/19 09:00 Ordered 100 mg PO DAILY Docusate Sodium [Colace] Med 01/04/19 21:00 Ordered 100 mg PO BID Enoxaparin [Lovenox] Med 01/04/19 18:00 Ordered 40 mg SUBCUT Q24H Furosemide [Lasix] Med 01/05/19 09:00 Ordered 20 mg PO DAILY Levothyroxine [Synthroid] Med 01/05/19 07:30 Ordered 100 mcg PO ACBREAKFAST Lidocaine 5% [Lidoderm 5%] Med 01/05/19 09:00 Ordered 1 patch TOP DAILY Lisinopril [Prinivil] Med 01/05/19 09:00 Ordered 5 mg PO DAILY Metoprolol Tartrate [Lopressor] Med 01/04/19 21:00 Ordered 12.5 mg PO BID Omeprazole Med 01/05/19 07:30 Ordered 40 mg PO ACBREAKFAST Ondansetron Med 01/04/19 17:03 Ordered 4 mg PO Q4H PRN Pharmacy to Dose - Warfarin Med 01/04/19 17:15 Ordered 1 dose .XX ASDIRECTED Polyethylene Glycol 3350 [MiraLAX] Med 01/05/19 08:00 Ordered 17 gm PO DAILY@08 Potassium Chloride [Klor-Con 10] Med 01/05/19 08:00 Ordered 10 meq PO DAILY@0800 Roflumilast Med 01/05/19 09:00 Ordered 500 mcg PO DAILY Sotalol HCl [Sotalol] Med 01/05/19 09:00 Ordered 120 mg PO DAILY Sulfamethoxazole/Trimethoprim [Septra DS] Med 01/04/19 21:00 Ordered 1 tab PO BID Tiotropium [Spiriva HandiHaler] Med 01/05/19 09:00 Ordered 18 mcg INH DAILY Venlafaxine [Effexor XR] Med 01/05/19 09:00 Ordered 150 mg PO DAILY Warfarin [Coumadin] Med 01/07/19 18:00 Ordered 2.5 mg PO MOFR@1800 Warfarin [Coumadin] Med 01/04/19 18:00 Ordered 5 mg PO SUTUWETHSA@1800 atorvaSTATin [Lipitor] Med 01/04/19 21:00 Ordered 40 mg PO BEDTIME predniSONE Med 01/05/19 08:00 Ordered 10 mg PO WITHBREAKFAST Resuscitation Status Routine Resus Stat 01/04/19 10:57 Ordered Medication Orders Hydrocodone Bitart/Acetaminophen ([place] 325-5 Mg) 1 tab PO Q6H PRN PRN Reason: Pain Albuterol/Ipratropium (Duoneb 3.0-0.5 Mg/3 Ml) 3 ml INH QID PRN PRN Reason: Shortness of Breath Allopurinol (Zyloprim) 200 mg PO DAILY [facility] Arformoterol Tartrate (Brovana) 15 mcg INH BID [facility] Atorvastatin Calcium (Lipitor) 40 mg PO BEDTIME [facility] Baclofen (Lioresal) 5 - 10 mg PO QID PRN PRN Reason: Spasms Cholecalciferol (Vitamin D3) mcg PO DAILY@0800 [facility] Docusate Sodium (Colace) 100 mg PO BID [facility] Enoxaparin Sodium (Lovenox) 40 mg SUBCUT Q24H [facility] Furosemide (Lasix) 20 mg PO DAILY [facility] Levothyroxine Sodium (Synthroid) 100 mcg PO ACBREAKFAST [facility] Lidocaine (Lidoderm 5%) mg TOP DAILY [facility] Lisinopril (Prinivil) 5 mg PO DAILY [facility] Metoprolol Tartrate (Lopressor) 12.5 mg PO BID [facility] Non-Formulary Medication (Dapsone) 100 mg PO DAILY [facility] Non-Formulary Medication (Ondansetron) 4 mg PO Q4H PRN PRN Reason: Nausea Non-Formulary Medication (Roflumilast) 500 mcg PO DAILY [facility] Non-Formulary Medication (Sotalol Hcl [Sotalol]) 120 mg PO DAILY [facility] Omeprazole (Omeprazole) 40 mg PO ACBREAKFAST [facility] Polyethylene Glycol (Miralax) 17 gm PO DAILY@08 [facility] Potassium Chloride (Klor-Con 10) 10 meq PO DAILY@0800 [facility] Prednisone (Prednisone) 10 mg PO WITHBREAKFAST [facility] Tiotropium [place] (Spiriva Handihaler) 18 mcg INH DAILY [facility] Trimethoprim/Sulfamethoxazole (Septra Ds) 1 tab PO BID [facility] Venlafaxine HCl (Effexor Xr) 150 mg PO DAILY [facility] Warfarin Sodium (Pharmacy To Dose - Warfarin) 1 dose .XX ASDIRECTED [facility] Warfarin Sodium (Coumadin) 2.5 mg PO MOFR@1800 [facility] Warfarin Sodium (Coumadin) 5 mg PO SUTUWETHSA@1800 [facility] Assessment/Plan Comment:: HPI summary: Ms. 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 Noticed that she was having discomfort of the area which was worsening on 01/03 and 01/04 resulting in her calling EMS for transport to the [facility] ED. She denies any difficulties taking medications or other new symptoms lately. ED course: She was noted to have a laceration-skin tear and clinical concern for cellulitis or DVT. Labs notable for WBC 16 with 85% neutrophils and INR 1.8. XR unremarkable. She was given ceftriaxone 1g in the ED and admitted for further evaluation and management, for which ED provider ordered venous US. Hospitalization problems: # Left leg pain # Left leg laceration-skin tag # Leukocytosis with neutrophilia: Baseline WBC 10-13 wtih 75-80% neutrophils. Admission WBC 16 with 84% neutrophils. DDx for pain favors cellulitis versus DVT. Also confounding is patient's chronic pain and narcotic use, making hyperalgesia a possibility for more pain than typically expected. ED evaluation notable for leukocytosis and neutrophilia elevated from baseline and subtherapeutic INR, but no inflammatory markers or D-dimer obtained. - Obtain D-dimer; proceed with venous duplex US if elevated - Obtain CRP - Await wound culture obtained in ED prior to antibiotic administration - Repeat CBC and BMP tomorrow - Ceftriaxone 1g IV daily an Bactrim DS po BID # Subtherapeutic INR: Admission INR 1.8. Goal INR 2-3. - Enoxaparin for DVT ppx until INR at goal - Warfarin dosing per pharmacy - Repeat INR tomorrow Chronic, stable medical conditions: # Chronic mixed pulmonary disease / Chronic hypoxic respiratory failure: Stable. Last PFTs 2017 with moderate restriction. Continue baseline oxygen, Brovana Daliresp, tiotropium and prn DuoNebs/albuterol. # CAD / HFpEF / HTN: Asymptomatic. Volume status neutral. BP controlled. Continue metoprolol, lisinopril, and furosemide/KCl. # Atrial fibrillation: Rhythm controlled. Continue sotalol. Anticoagulation as above. # Hx TAVR: Anticoagulation as above. # Ostomy status: Hx colon resection for multiple adenomas. No clinical concerns. # GERD: Stable. Continue PPI. # Constipation: Stable. Continue PEG and docusate. # Suyapa's granulomatosis: Stable. Continue dapsone and prednisone. # Gout: 12/20/18 uric acid 4.4. Continue allopurinol. # Hypothyroidism: 10/27/18 TSH 2.42. Continue levothyroxine. # HLD: Last lipid panel 06/03/2018. Continue statin. # Iron deficiency anemia: Baseline hemoglobin 9-10. Continue iron-vitamin C. # Macrocytosis: Stable. Recent folate and B12 testing normal. # Osteopenia: Last DEXA 2012. On Prolia. Consider repeat DEXA in the future. # Chronic back pain / Chronic opiate use: Stable. Continue lidocaine patch, [place] prn and baclofen TID. # Depression: Stable. Continue venlafaxine. Hospitalization details: # FEN: No IVF. Electrolytes normal. Regular diet as tolerated. # PPX: Enoxaparin 40mg daily until INR therapeutic. # Code status: DNR/DNI. # Emergency contact: , who was updated at bedside. # Disposition: Admit to observation status. Anticipate discharge to [facility] in 1-2 days pending clinical course.
[2019-01-04] MEDS ORDERED: Enoxaparin 40 MG/0.4 ML Syringe SUBCUT SCH (18:00)
[2019-01-04] MEDS ORDERED: Warfarin 5 MG Tab PO SCH (18:00)
[2019-01-04] MEDS: Acetaminophen/HYDROcodone 325-5 MG Tab PO PRN (18:49)
[2019-01-04] MEDS: Arformoterol 15 MCG/2 ML Neb Soln INH SCH (20:10)
[2019-01-04] MEDS: Docusate Sodium 100 MG Cap PO SCH (20:15)
[2019-01-04] MEDS: Sulfamethoxazole/Trimethoprim 800-160 MG Tab PO SCH (20:15)
[2019-01-04] MEDS: Metoprolol Tartrate 25 MG Tab PO SCH (20:16)
[2019-01-04] MEDS ORDERED: atorvaSTATin 40 MG Tab PO SCH (21:00)
[2019-01-05] MEDS: Acetaminophen/HYDROcodone 325-5 MG Tab PO PRN (01:51)
[2019-01-05] MEDS ORDERED: Levothyroxine 100 MCG Tab PO SCH (07:30)
[2019-01-05] MEDS ORDERED: Omeprazole 20 MG Cap.CR PO SCH (07:30)
[2019-01-05] MEDS: Arformoterol 15 MCG/2 ML Neb Soln INH SCH (07:39)
[2019-01-05 07:45] LABS: ANION GAP 12.7 mmol/L (5-15)
[2019-01-05] MEDS ORDERED: Potassium Chloride 10 MEQ Tab.ER PO SCH (08:00)
[2019-01-05] MEDS ORDERED: Cholecalciferol (Vitamin D3) 25 MCG Tab PO SCH (08:00)
[2019-01-05] MEDS ORDERED: predniSONE 10 MG Tab PO SCH (08:00)
[2019-01-05] MEDS ORDERED: Polyethylene Glycol 3350 Powder 17 GM Packet PO SCH (08:00)
[2019-01-05] MEDS: Metoprolol Tartrate 25 MG Tab PO SCH (08:46)
[2019-01-05] MEDS: Docusate Sodium 100 MG Cap PO SCH (08:47)
[2019-01-05] MEDS: Sulfamethoxazole/Trimethoprim 800-160 MG Tab PO SCH (08:48)
[2019-01-05] MEDS ORDERED: SPIRIVA HANDIHALER INH SCH (09:00)
[2019-01-05] MEDS ORDERED: Roflumilast 500 MCG Tab PO SCH (09:00)
[2019-01-05] MEDS ORDERED: Allopurinol 100 MG Tab PO SCH (09:00)
[2019-01-05] MEDS ORDERED: Furosemide 20 MG Tab PO SCH (09:00)
[2019-01-05] MEDS ORDERED: Venlafaxine 150 MG Cap.ER PO SCH (09:00)
[2019-01-05] MEDS ORDERED: Sotalol 80 MG Tab PO SCH (09:00)
[2019-01-05] MEDS ORDERED: DAPSONE 100 MG PO SCH (09:00)
[2019-01-05] MEDS ORDERED: Tiotropium Inhaler 18 MCG Inhalation Powder Cap Kit of 5 INH SCH (09:00)
[2019-01-05] MEDS ORDERED: Lisinopril 5 MG Tab PO SCH (09:00)
[2019-01-05] MEDS ORDERED: Lidocaine 5% 700 MG Patch TOP SCH (09:00)
--- NOTE | 2019-01-05 12:00 | PCM.PN ---
- General Info Date of Service: 01/05/19 - Patient Data Vitals - Most Recent: Last Vital Signs Temp 37.4 C 01/05/19 06:06 Pulse 64 01/05/19 09:02 Resp 24 H 01/05/19 06:06 BP 157/54 H 01/05/19 08:48 Pulse Ox 93 L 01/05/19 09:02 Weight - Most Recent: 55.338 kg I&O - Last 24 Hours: Intake & Output 01/04/19 01/05/19 01/05/19 22:59 06:59 14:59 Intake Total 425 75 Output Total 200 Balance 425 -125 Lab Results Last 24 Hours: Laboratory Results - last 24 hr 01/04/19 01/04/19 01/05/19 Range/Units 10:05 10:05 07:15 WBC 11.52 H (5.00-10.00) 10^3/uL RBC 2.79 L (3.80-5.50) 10^6/uL Hgb 9.4 L (12.0-16.0) g/dL Hct 30.3 L (37.0-47.0) % MCV 108.6 H (82.0-92.0) fL MCH 33.7 H (27.0-31.0) pg MCHC 31.0 L (32.0-36.0) g/dL RDW 16.3 H (11.5-14.5) % Plt Count 154 (150-400) 10^3/uL MPV 11.6 H (7.4-10.4) fL Immature Gran % (Auto) 0.4 (0.0-5.0) % Neut % (Auto) 77.2 H (50.0-70.0) % Lymph % (Auto) 14.1 L (20.0-40.0) % Hawkins % (Auto) 7.5 (2.0-8.0) % Eos % (Auto) 0.3 L (1.0-3.0) % Baso % (Auto) 0.5 (0.0-1.0) % Immature Gran # (Auto) 0.05 (0.00-0.50) 10^3/uL Neut # (Auto) 8.88 H (2.50-7.00) 10^3/uL Lymph # (Auto) 1.63 (1.00-4.00) 10^3/uL Hawkins # (Auto) 0.86 H (0.10-0.80) 10^3/uL Eos # (Auto) 0.04 L (0.10-0.30) 10^3/uL Baso # (Auto) 0.06 (0.00-0.10) 10^3/uL Macrocytosis 1+ slight PT (8.9-11.4) SEC INR (0.9-1.1) D-Dimer, Quantitative < 100 (<400) ng/mL Sodium (136-145) mmol/L Potassium (3.3-5.3) mmol/L Chloride (98-115) mmol/L Carbon Dioxide (21.0-32.0) mmol/L Anion Gap (5-15) mmol/L BUN (6-25) mg/dL Creatinine (0.51-1.17) mg/dL Est Cr Clr Drug Dosing mL/min Estimated GFR (MDRD) mL/min Glucose (75 - 99) mg/dL Calcium (8.7-10.3) mg/dL C-Reactive Protein 0.3 (0.0-0.9) mg/dL 01/05/19 01/05/19 Range/Units 07:15 07:15 WBC (5.00-10.00) 10^3/uL RBC (3.80-5.50) 10^6/uL Hgb (12.0-16.0) g/dL Hct (37.0-47.0) % MCV (82.0-92.0) fL MCH (27.0-31.0) pg MCHC (32.0-36.0) g/dL RDW (11.5-14.5) % Plt Count (150-400) 10^3/uL MPV (7.4-10.4) fL Immature Gran % (Auto) (0.0-5.0) % Neut % (Auto) (50.0-70.0) % Lymph % (Auto) (20.0-40.0) % Hawkins % (Auto) (2.0-8.0) % Eos % (Auto) (1.0-3.0) % Baso % (Auto) (0.0-1.0) % Immature Gran # (Auto) (0.00-0.50) 10^3/uL Neut # (Auto) (2.50-7.00) 10^3/uL Lymph # (Auto) (1.00-4.00) 10^3/uL Hawkins # (Auto) (0.10-0.80) 10^3/uL Eos # (Auto) (0.10-0.30) 10^3/uL Baso # (Auto) (0.00-0.10) 10^3/uL Macrocytosis PT 23.4 H D (8.9-11.4) SEC INR 2.4 H (0.9-1.1) D-Dimer, Quantitative (<400) ng/mL Sodium 146 H (136-145) mmol/L Potassium 4.3 (3.3-5.3) mmol/L Chloride 109 (98-115) mmol/L Carbon Dioxide 28.6 (21.0-32.0) mmol/L Anion Gap 12.7 (5-15) mmol/L BUN 24 (6-25) mg/dL Creatinine 1.03 (0.51-1.17) mg/dL Est Cr Clr Drug Dosing 30.77 mL/min Estimated GFR (MDRD) 51 mL/min Glucose 97 (75 - 99) mg/dL Calcium 9.2 (8.7-10.3) mg/dL C-Reactive Protein (0.0-0.9) mg/dL Erick Results Last 24 Hours: Microbiology 01/04/19 11:00 Gram Stain - Final Wound - Leg, Left Med Orders - Current: Current Medications Hydrocodone Bitart/Acetaminophen ([place] 325-5 Mg) 1 tab PO Q6H PRN PRN Reason: Pain Last Admin: 01/05/19 01:51 Dose: 1 tab Albuterol/Ipratropium (Duoneb 3.0-0.5 Mg/3 Ml) 3 ml INH QID PRN PRN Reason: Shortness of Breath Last Admin: 01/05/19 01:56 Dose: 3 ml Allopurinol (Zyloprim) 200 mg PO DAILY [facility] Last Admin: 01/05/19 08:45 Dose: 200 mg Arformoterol Tartrate (Brovana) 15 mcg INH BIDRT [facility] Last Admin: 01/05/19 07:39 Dose: 15 mcg Atorvastatin Calcium (Lipitor) 40 mg PO BEDTIME [facility] Last Admin: 01/04/19 20:15 Dose: 40 mg Baclofen (Lioresal) 5 - 10 mg PO QID PRN PRN Reason: Spasms Cholecalciferol (Vitamin D3) 25 mcg PO DAILY@0800 [facility] Last Admin: 01/05/19 08:49 Dose: 25 mcg Docusate Sodium (Colace) 100 mg PO BID [facility] Last Admin: 01/05/19 08:47 Dose: 100 mg Furosemide (Lasix) 20 mg PO DAILY [facility] Last Admin: 01/05/19 08:48 Dose: 20 mg Levothyroxine Sodium (Synthroid) 100 mcg PO ACBREAKFAST [facility] Last Admin: 01/05/19 07:22 Dose: 100 mcg Lidocaine (Lidoderm 5%) 700 mg TOP DAILY [facility] Last Admin: 01/05/19 08:49 Dose: 700 mg Lisinopril (Prinivil) 5 mg PO DAILY [facility] Last Admin: 01/05/19 08:48 Dose: 5 mg Metoprolol Tartrate (Lopressor) 12.5 mg PO BID [facility] Last Admin: 01/05/19 08:46 Dose: 12.5 mg Miscellaneous Information (Remove Patch) 1 ea TRDERM BEDTIME [facility] Last Admin: 01/04/19 20:17 Dose: Not Given Omeprazole (Omeprazole) 40 mg PO ACBREAKFAST [facility] Last Admin: 01/05/19 07:23 Dose: 40 mg Ondansetron HCl (Zofran Odt) 4 mg PO Q4H PRN PRN Reason: Nausea Dapsone 100 Mg Tab - (Ptom) 1 each PO DAILY [facility] Last Admin: 01/05/19 08:58 Dose: 1 each Spiriva Handihaler ( Tiotropium) 18mcg/Cap - Ptom 1 each INH DAILY [facility] Last Admin: 01/05/19 09:02 Dose: 1 each Polyethylene Glycol (Miralax) 17 gm PO DAILY@08 [facility] Last Admin: 01/05/19 08:45 Dose: 17 gm Potassium Chloride (Klor-Con 10) 10 meq PO DAILY@0800 [facility] Last Admin: 01/05/19 08:52 Dose: 10 meq Prednisone (Prednisone) 10 mg PO WITHBREAKFAST [facility] Last Admin: 01/05/19 08:49 Dose: 10 mg Roflumilast (Daliresp) 500 mcg PO DAILY [facility] Last Admin: 01/05/19 08:47 Dose: 500 mcg Sotalol HCl (Betapace) 120 mg PO DAILY [facility] Last Admin: 01/05/19 08:45 Dose: 120 mg Trimethoprim/Sulfamethoxazole (Septra Ds) 1 tab PO BID [facility] Last Admin: 01/05/19 08:48 Dose: 1 tab Venlafaxine HCl (Effexor Xr) 150 mg PO DAILY [facility] Last Admin: 01/05/19 08:49 Dose: 150 mg Warfarin Sodium (Pharmacy To Dose - Warfarin) 1 dose .XX ASDIRECTED [facility] Warfarin Sodium (Coumadin) 2.5 mg PO MOFR@1800 [facility] Warfarin Sodium (Coumadin) 5 mg PO SUTUWETHSA@1800 [facility] Last Admin: 01/04/19 18:51 Dose: 5 mg Discontinued Medications Ceftriaxone Sodium (Rocephin) 1 gm IVPUSH ONETIME ONE Stop: 01/04/19 10:52 Last Admin: 01/04/19 11:35 Dose: 1 gm Dapsone (Dapsone) 100 mg PO DAILY [facility] Enoxaparin Sodium (Lovenox) 40 mg SUBCUT Q24H [facility] Last Admin: 01/04/19 18:49 Dose: 40 mg Ketorolac Tromethamine (Toradol) 30 mg IVPUSH ONETIME ONE Stop: 01/04/19 09:58 Last Admin: 01/04/19 10:17 Dose: 30 mg Sodium Chloride (Saline Flush) 10 ml FLUSH Q8HR PRN PRN Reason: keep vein open Last Admin: 01/04/19 10:00 Dose: 10 ml Tiotropium [place] (Spiriva Handihaler) 18 mcg INH DAILY [facility] - My Orders Last 24 Hours: My Active Orders 01/04/19 17:03 Acetaminophen/HYDROcodone [[place] 325-5 MG] 1 tab PO Q6H PRN Albuterol/Ipratropium [DuoNeb 3.0-0.5 MG/3 ML] 3 ml INH QID PRN Baclofen [Lioresal] 5 - 10 mg PO QID PRN Ondansetron [Zofran ODT] 4 mg PO Q4H PRN 01/04/19 17:15 Pharmacy to Dose - Warfarin 1 dose .XX ASDIRECTED 01/04/19 18:00 Warfarin [Coumadin] 5 mg PO SUTUWETHSA@1800 01/04/19 20:00 Arformoterol [Brovana] 15 mcg INH BIDRT 01/04/19 21:00 Docusate Sodium [Colace] 100 mg PO BID Metoprolol Tartrate [Lopressor] 12.5 mg PO BID Remove Patch 1 ea TRDERM BEDTIME Sulfamethoxazole/Trimethoprim [Septra DS] 1 tab PO BID atorvaSTATin [Lipitor] 40 mg PO BEDTIME 01/05/19 07:30 Levothyroxine [Synthroid] 100 mcg PO ACBREAKFAST Omeprazole 40 mg PO ACBREAKFAST 01/05/19 08:00 Cholecalciferol (Vitamin D3) [Vitamin D3] 25 mcg PO DAILY@0800 Polyethylene Glycol 3350 [MiraLAX] 17 gm PO DAILY@08 Potassium Chloride [Klor-Con 10] 10 meq PO DAILY@0800 predniSONE 10 mg PO WITHBREAKFAST 01/05/19 09:00 Allopurinol [Zyloprim] 200 mg PO DAILY Furosemide [Lasix] 20 mg PO DAILY Lidocaine 5% [Lidoderm 5%] 700 mg TOP DAILY Lisinopril [Prinivil] 5 mg PO DAILY Patient's Own Medication [Ptom] 1 each INH DAILY Patient's Own Medication [Ptom] 1 each PO DAILY Roflumilast [Daliresp] 500 mcg PO DAILY Sotalol [Betapace] 120 mg PO DAILY Venlafaxine [Effexor XR] 150 mg PO DAILY 01/05/19 11:18 Consult to Physical Therapy [PT Evaluation and Treatment] [CONS] Routine 01/07/19 18:00 Warfarin [Coumadin] 2.5 mg PO MOFR@1800 - Plan Plan:: HPI summary: Ms. 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 Noticed that she was having discomfort of the area which was worsening on 01/03 and 01/04 resulting in her calling EMS for transport to the [facility] ED. She denies any difficulties taking medications or other new symptoms lately. ED course: She was noted to have a laceration-skin tear and clinical concern for cellulitis or DVT. Labs notable for WBC 16 with 85% neutrophils and INR 1.8. XR unremarkable. She was given ceftriaxone 1g in the ED and admitted for further evaluation and management, for which ED provider ordered venous US. Hospitalization problems: # Left leg pain # Left leg laceration-skin tag # Leukocytosis with neutrophilia: Baseline WBC 10-13 wtih 75-80% neutrophils. Admission WBC 16 with 84% neutrophils. DDx for pain favors cellulitis versus DVT. Also confounding is patient's chronic pain and narcotic use, making hyperalgesia a possibility for more pain than typically expected. ED evaluation notable for leukocytosis and neutrophilia elevated from baseline and subtherapeutic INR, but no inflammatory markers or D-dimer obtained. - Obtain D-dimer; proceed with venous duplex US if elevated - Obtain CRP - Await wound culture obtained in ED prior to antibiotic administration - Repeat CBC and BMP tomorrow - Ceftriaxone 1g IV daily an Bactrim DS po BID # Subtherapeutic INR: Admission INR 1.8. Goal INR 2-3. - Enoxaparin for DVT ppx until INR at goal - Warfarin dosing per pharmacy - Repeat INR tomorrow Chronic, stable medical conditions: # Chronic mixed pulmonary disease / Chronic hypoxic respiratory failure: Stable. Last PFTs 2016 with moderate restriction. Continue baseline oxygen, Brovana Daliresp, tiotropium and prn DuoNebs/albuterol. # CAD / HFpEF / HTN: Asymptomatic. Volume status neutral. BP controlled. Continue metoprolol, lisinopril, and furosemide/KCl. # Atrial fibrillation: Rhythm controlled. Continue sotalol. Anticoagulation as above. # Hx TAVR: Anticoagulation as above. # Ostomy status: Hx colon resection for multiple adenomas. No clinical concerns. # GERD: Stable. Continue PPI. # Constipation: Stable. Continue PEG and docusate. # Suyapa's granulomatosis: Stable. Continue dapsone and prednisone. # Gout: 12/20/18 uric acid 4.4. Continue allopurinol. # Hypothyroidism: 10/27/18 TSH 2.42. Continue levothyroxine. # HLD: Last lipid panel 06/03/2018. Continue statin. # Iron deficiency anemia: Baseline hemoglobin 9-10. Continue iron-vitamin C. # Macrocytosis: Stable. Recent folate and B12 testing normal. # Osteopenia: Last DEXA 2012. On Prolia. Consider repeat DEXA in the future. # Chronic back pain / Chronic opiate use: Stable. Continue lidocaine patch, [place] prn and baclofen TID. # Depression: Stable. Continue venlafaxine. Hospitalization details: # FEN: No IVF. Electrolytes normal. Regular diet as tolerated. # PPX: Enoxaparin 40mg daily until INR therapeutic. # Code status: DNR/DNI. # Emergency contact: , who was updated at bedside. # Disposition: Admit to observation status. Anticipate discharge to [facility] in 1-2 days pending clinical course.
[2019-01-05 12:30] VITALS: BP 147/68; PULSE 68
--- NOTE | 2019-01-05 12:59 | PCM.DCSUM1 ---
Discharge Summary - Hospital Course Free Text/Narrative:: Date of admission: 01/04/19 Date of discharge: 01/05/19 Admission diagnoses: # Left leg pain # Left leg laceration-skin tear # Leukocytosis with neutrophilia # Subtherapeutic INR # Chronic mixed pulmonary disease # Chronic hypoxic respiratory failure # CAD # HFpEF # HTN # Atrial fibrillation # Hx TAVR # Ostomy status # GERD # Constipation # Suyapa's granulomatosis # Gout # Hypothyroidism # HLD # Iron deficiency anemia # Macrocytosis # Osteopenia # Chronic back pain # Chronic opiate use # Depression Discharge diagnoses: # Cellulitis # Left leg pain # Left leg laceration-skin tear # Leukocytosis with neutrophilia # Subtherapeutic INR # Chronic mixed pulmonary disease # Chronic hypoxic respiratory failure # CAD # HFpEF # HTN # Atrial fibrillation # Hx TAVR # Ostomy status # GERD # Constipation # Suyapa's granulomatosis # Gout # Hypothyroidism # HLD # Iron deficiency anemia # Macrocytosis # Osteopenia # Chronic back pain # Chronic opiate use # Depression Consultations: Physical therapy Hospital course: Ms. 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 Noticed that she was having discomfort of the area which was worsening on 01/03 and 01/04 resulting in her calling EMS for transport to the [facility] ED. She denies any difficulties taking medications or other new symptoms lately. In the ED, she was noted to have a laceration-skin tear and clinical concern for cellulitis or DVT. Labs notable for WBC 16 with 85% neutrophils (Baseline WBC 10-13 with 75-80% neutrophils) and INR 1.8. XR unremarkable. She was given ceftriaxone 1g in the ED and admitted for further evaluation and management, for which ED provider ordered venous US. DDx for pain favored cellulitis versus DVT. Also confounding is patient's chronic pain and narcotic use, making hyperalgesia a possibility for more pain than typically expected. ED evaluation notable for leukocytosis and neutrophilia elevated from baseline and subtherapeutic INR, but no inflammatory markers or D-dimer obtained, so these were obtained showing a negative D-dimer, so US cancelled. Antibiotic was switched to oral Bactrim given wound and hx of MRSA. Warfarin was adjusted given subtherapeutic INR on admission. She was continued on other home medications. No complications arose during her stay. Discharge and follow-up recommendations: - Discharge back to [facility] - New medications at discharge: - Bactrim DS BID x 5 days for cellulitis awaiting culture - Notify [facility] of prior INRs and current Bactrim use - Follow-up with myself, per patient request, in 5-10 days - Follow-up wound culture - Consider future DEXA given prior in 2012 Chronic conditions review for future reference: # Chronic mixed pulmonary disease / Chronic hypoxic respiratory failure: Last PFTs 2016 with moderate restriction. Baseline oxygen, Brovana Daliresp, tiotropium and DuoNebs/albuterol prn. # CAD / HFpEF / HTN: Metoprolol, lisinopril, and furosemide/KCl. # Atrial fibrillation: Rhythm controlled with sotalol. Anticoagulation with warfarin. # Hx TAVR: Anticoagulation as above. # Ostomy status: Hx colon resection for multiple adenomas. # GERD: Stable. PPI. # Constipation: Stable. PEG and docusate. # Suyapa's granulomatosis: Stable. Dapsone and prednisone. # Gout: 12/20/18 uric acid 4.4. Allopurinol. # Hypothyroidism: 10/27/18 TSH 2.42. Levothyroxine. # HLD: Last lipid panel 06/03/2018. Atorvastatin. # Iron deficiency anemia: Baseline hemoglobin 9-10. Iron-vitamin C. # Macrocytosis: Stable. Recent folate and B12 testing normal. # Osteopenia: Last DEXA 2012. Prolia. # Chronic back pain / Chronic opiate use: Lidocaine patch, [place] prn and baclofen TID. # Depression: Stable. Venlafaxine. - Discharge Data Discharge Date: 01/05/19 Discharge Disposition: Home, Self-Care 01 Condition: Good - Patient Summary/Data Consults: Consultations 01/05/19 11:18 Consult to Physical Therapy [PT Evaluation and Treatment] [CONS] Routine - Patient Instructions Diet: Usual Diet as Tolerated Activity: Apply Ice, As Tolerated Wound/Incision Care: Keep Operative Site/Wound Site Clean and Dry Notify Provider of: Fever, Increased Pain, Swelling and Redness, Nausea and/or Vomiting - Discharge Plan *PRESCRIPTION DRUG MONITORING PROGRAM REVIEWED*: Yes *COPY OF PRESCRIPTION DRUG MONITORING REPORT IN PATIENT JACKI: Yes Prescriptions/Med Rec: Sulfamethoxazole/Trimethoprim [Septra DS] 1 tab PO BID 5 Days #10 tablet Home Medications: Home Meds Cholecalciferol (Vitamin D3) [Vitamin D3] 1,000 unit PO DAILY@0800 09/27/13 [ History] Albuterol Sulfate [Albuterol Sulfate HFA] 2 puff INH Q4HR PRN 08/28/14 [History] Omeprazole [Prilosec] 40 mg PO ACBREAKFAST 01/20/15 [History] Venlafaxine [Effexor XR] 150 mg PO DAILY 04/12/15 [History] Docusate Sodium [Colace] 100 mg PO BID 06/27/15 [History] Albuterol [Proventil Neb Soln] 2.5 mg NEB QID PRN 02/25/16 [History] Potassium Chloride [K-Tab ER] 10 meq PO DAILY@0800 02/25/16 [History] Warfarin [Coumadin] 5 mg PO SUTUTHSA@1800 05/11/16 [History] Dapsone 100 mg PO DAILY 06/19/16 [History] Lisinopril [Prinivil] 5 mg PO DAILY 06/19/16 [History] predniSONE [Prednisone] 10 mg PO WITHBREAKFAST 07/17/16 [History] Metoprolol Tartrate 12.5 mg PO BID 11/08/16 [History] Sotalol HCl [Sotalol] 120 mg PO DAILY #30 tablet 11/12/16 [Rx] Clindamycin HCl 600 mg PO ASDIRECTED PRN 01/16/17 [History] Ondansetron [Zofran] 4 mg PO Q4H PRN 01/16/17 [History] Warfarin [Coumadin] 2.5 mg PO MOWEFR@1800 01/16/17 [History] Roflumilast [Daliresp] 500 mcg PO DAILY #30 tablet 01/20/17 [Rx] Menthol [Biofreeze] 1 applic TOP BID PRN 05/21/17 [History] Polyethylene Glycol 3350 [MiraLAX] 17 gm PO DAILY@08 05/21/17 [History] Arformoterol [Brovana] 15 mcg INH BID 08/01/17 [History] Furosemide [Lasix] 20 mg PO DAILY 12/09/17 [History] Multivitamin [Multivitamins] 1 cap PO DAILY 12/09/17 [History] Albuterol/Ipratropium [DuoNeb 3.0-0.5 MG/3 ML] 3 ml INH QID PRN 02/24/18 [ History] Denosumab [Prolia] 60 mg SUBCUT Q180D 02/24/18 [History] Tiotropium [Spiriva HandiHaler] 18 mcg INH DAILY 02/24/18 [History] atorvaSTATin [Lipitor] 40 mg PO BEDTIME 02/24/18 [History] Allopurinol [Zyloprim] 200 mg PO DAILY 05/08/18 [History] Hydrocodone/Acetaminophen [Hydrocodon-Acetaminophen 5-325] 1 tab PO Q6H PRN 04/15 [History] Rup Rub 1 gm TOP BID 05/08/18 [History] Baclofen 5 - 10 mg PO QID PRN 07/11/18 [History] Iron,Carbonyl/Ascorbic Acid [Vitron-C Tablet] 1 each PO Q48H #15 tablet. 07/12 [Rx] Levothyroxine [Synthroid] 100 mcg PO ACBREAKFAST 09/22/18 [History] Arformoterol [Brovana] 15 mcg INH BID 01/04/19 [History] Colchicine 2 tab PO DAILY PRN 01/04/19 [History] Lidocaine 5% [Lidoderm 5%] 1 patch TOP DAILY 01/04/19 [History] Nystatin [Mycostatin] 5 ml PO TID 01/04/19 [History] Sulfamethoxazole/Trimethoprim [Septra DS] 1 tab PO BID 5 Days #10 tablet [Rx] Oxygen Therapy Mode: Nasal Cannula Referrals: PCP,Unknown [Ordering Only Provider] - (next week in [place]) - Discharge Summary/Plan Comment DC Time >30 min.: Yes - General Info Subjective Update: Mrs. Perla overall feels she is doing fairly well today. Has had improvement in leg pain. Ambulating well. Minimal drainage around LLE laceration/skin tear. Tolerating diet well. Breathing at baseline. No other concerns. - Patient Data Vitals - Most Recent: Last Vital Signs Temp 37.1 C 01/05/19 11:00 Pulse 68 01/05/19 11:00 Resp 28 H 01/05/19 11:00 BP 147/68 H 01/05/19 11:00 Pulse Ox 86 L 01/05/19 11:00 Weight - Most Recent: 55.338 kg I&O - Last 24 hours: Intake & Output 01/04/19 01/05/19 01/05/19 22:59 06:59 14:59 Intake Total 425 75 Output Total 200 Balance 425 -125 Lab Results - Last 24 hrs: Laboratory Results - last 24 hr 01/04/19 01/05/19 01/05/19 Range/Units 10:05 07:15 07:15 WBC 11.52 H (5.00-10.00) 10^3/uL RBC 2.79 L (3.80-5.50) 10^6/uL Hgb 9.4 L (12.0-16.0) g/dL Hct 30.3 L (37.0-47.0) % MCV 108.6 H (82.0-92.0) fL MCH 33.7 H (27.0-31.0) pg MCHC 31.0 L (32.0-36.0) g/dL RDW 16.3 H (11.5-14.5) % Plt Count 154 (150-400) 10^3/uL MPV 11.6 H (7.4-10.4) fL Immature Gran % (Auto) 0.4 (0.0-5.0) % Neut % (Auto) 77.2 H (50.0-70.0) % Lymph % (Auto) 14.1 L (20.0-40.0) % Perry % (Auto) 7.5 (2.0-8.0) % Eos % (Auto) 0.3 L (1.0-3.0) % Baso % (Auto) 0.5 (0.0-1.0) % Immature Gran # (Auto) 0.05 (0.00-0.50) 10^3/uL Neut # (Auto) 8.88 H (2.50-7.00) 10^3/uL Lymph # (Auto) 1.63 (1.00-4.00) 10^3/uL Perry # (Auto) 0.86 H (0.10-0.80) 10^3/uL Eos # (Auto) 0.04 L (0.10-0.30) 10^3/uL Baso # (Auto) 0.06 (0.00-0.10) 10^3/uL Macrocytosis 1+ slight PT (8.9-11.4) SEC INR (0.9-1.1) D-Dimer, Quantitative < 100 (<400) ng/mL Sodium 146 H (136-145) mmol/L Potassium 4.3 (3.3-5.3) mmol/L Chloride 109 (98-115) mmol/L Carbon Dioxide 28.6 (21.0-32.0) mmol/L Anion Gap 12.7 (5-15) mmol/L BUN 24 (6-25) mg/dL Creatinine 1.03 (0.51-1.17) mg/dL Est Cr Clr Drug Dosing 30.77 mL/min Estimated GFR (MDRD) 51 mL/min Glucose 97 (75 - 99) mg/dL Calcium 9.2 (8.7-10.3) mg/dL 01/05/19 Range/Units 07:15 WBC (5.00-10.00) 10^3/uL RBC (3.80-5.50) 10^6/uL Hgb (12.0-16.0) g/dL Hct (37.0-47.0) % MCV (82.0-92.0) fL MCH (27.0-31.0) pg MCHC (32.0-36.0) g/dL RDW (11.5-14.5) % Plt Count (150-400) 10^3/uL MPV (7.4-10.4) fL Immature Gran % (Auto) (0.0-5.0) % Neut % (Auto) (50.0-70.0) % Lymph % (Auto) (20.0-40.0) % Perry % (Auto) (2.0-8.0) % Eos % (Auto) (1.0-3.0) % Baso % (Auto) (0.0-1.0) % Immature Gran # (Auto) (0.00-0.50) 10^3/uL Neut # (Auto) (2.50-7.00) 10^3/uL Lymph # (Auto) (1.00-4.00) 10^3/uL Perry # (Auto) (0.10-0.80) 10^3/uL Eos # (Auto) (0.10-0.30) 10^3/uL Baso # (Auto) (0.00-0.10) 10^3/uL Macrocytosis PT 23.4 H D (8.9-11.4) SEC INR 2.4 H (0.9-1.1) D-Dimer, Quantitative (<400) ng/mL Sodium (136-145) mmol/L Potassium (3.3-5.3) mmol/L Chloride (98-115) mmol/L Carbon Dioxide (21.0-32.0) mmol/L Anion Gap (5-15) mmol/L BUN (6-25) mg/dL Creatinine (0.51-1.17) mg/dL Est Cr Clr Drug Dosing mL/min Estimated GFR (MDRD) mL/min Glucose (75 - 99) mg/dL Calcium (8.7-10.3) mg/dL TRENT Results - Last 24 hrs: Microbiology 01/04/19 11:00 Gram Stain - Final Wound - Leg, Left Med Orders - Current: Current Medications Hydrocodone Bitart/Acetaminophen ([place] 325-5 Mg) 1 tab PO Q6H PRN PRN Reason: Pain Last Admin: 01/05/19 01:51 Dose: 1 tab Albuterol/Ipratropium (Duoneb 3.0-0.5 Mg/3 Ml) 3 ml INH QID PRN PRN Reason: Shortness of Breath Last Admin: 01/05/19 01:56 Dose: 3 ml Allopurinol (Zyloprim) 200 mg PO DAILY [facility] Last Admin: 01/05/19 08:45 Dose: 200 mg Arformoterol Tartrate (Brovana) 15 mcg INH BIDRT [facility] Last Admin: 01/05/19 07:39 Dose: 15 mcg Atorvastatin Calcium (Lipitor) 40 mg PO BEDTIME [facility] Last Admin: 01/04/19 20:15 Dose: 40 mg Baclofen (Lioresal) 5 - 10 mg PO QID PRN PRN Reason: Spasms Cholecalciferol (Vitamin D3) 25 mcg PO DAILY@0800 [facility] Last Admin: 01/05/19 08:49 Dose: 25 mcg Docusate Sodium (Colace) 100 mg PO BID [facility] Last Admin: 01/05/19 08:47 Dose: 100 mg Furosemide (Lasix) 20 mg PO DAILY [facility] Last Admin: 01/05/19 08:48 Dose: 20 mg Levothyroxine Sodium (Synthroid) 100 mcg PO ACBREAKFAST [facility] Last Admin: 01/05/19 07:22 Dose: 100 mcg Lidocaine (Lidoderm 5%) 700 mg TOP DAILY [facility] Last Admin: 01/05/19 08:49 Dose: 700 mg Lisinopril (Prinivil) 5 mg PO DAILY [facility] Last Admin: 01/05/19 08:48 Dose: 5 mg Metoprolol Tartrate (Lopressor) 12.5 mg PO BID [facility] Last Admin: 01/05/19 08:46 Dose: 12.5 mg Miscellaneous Information (Remove Patch) 1 ea TRDERM BEDTIME [facility] Last Admin: 01/04/19 20:17 Dose: Not Given Omeprazole (Omeprazole) 40 mg PO ACBREAKFAST [facility] Last Admin: 01/05/19 07:23 Dose: 40 mg Ondansetron HCl (Zofran Odt) 4 mg PO Q4H PRN PRN Reason: Nausea Dapsone 100 Mg Tab - (Ptom) 1 each PO DAILY [facility] Last Admin: 01/05/19 08:58 Dose: 1 each Spiriva Handihaler ( Tiotropium) 18mcg/Cap - Ptom 1 each INH DAILY [facility] Last Admin: 01/05/19 09:02 Dose: 1 each Polyethylene Glycol (Miralax) 17 gm PO DAILY@08 [facility] Last Admin: 01/05/19 08:45 Dose: 17 gm Potassium Chloride (Klor-Con 10) 10 meq PO DAILY@0800 [facility] Last Admin: 01/05/19 08:52 Dose: 10 meq Prednisone (Prednisone) 10 mg PO WITHBREAKFAST [facility] Last Admin: 01/05/19 08:49 Dose: 10 mg Roflumilast (Daliresp) 500 mcg PO DAILY [facility] Last Admin: 01/05/19 08:47 Dose: 500 mcg Sotalol HCl (Betapace) 120 mg PO DAILY [facility] Last Admin: 01/05/19 08:45 Dose: 120 mg Trimethoprim/Sulfamethoxazole (Septra Ds) 1 tab PO BID [facility] Last Admin: 01/05/19 08:48 Dose: 1 tab Venlafaxine HCl (Effexor Xr) 150 mg PO DAILY [facility] Last Admin: 01/05/19 08:49 Dose: 150 mg Warfarin Sodium (Pharmacy To Dose - Warfarin) 1 dose .XX ASDIRECTED [facility] Warfarin Sodium (Coumadin) 2.5 mg PO MOFR@1800 [facility] Warfarin Sodium (Coumadin) 5 mg PO SUTUWETHSA@1800 [facility] Last Admin: 01/04/19 18:51 Dose: 5 mg Discontinued Medications Ceftriaxone Sodium (Rocephin) 1 gm IVPUSH ONETIME ONE Stop: 01/04/19 10:52 Last Admin: 01/04/19 11:35 Dose: 1 gm Dapsone (Dapsone) 100 mg PO DAILY [facility] Enoxaparin Sodium (Lovenox) 40 mg SUBCUT Q24H [facility] Last Admin: 01/04/19 18:49 Dose: 40 mg Ketorolac Tromethamine (Toradol) 30 mg IVPUSH ONETIME ONE Stop: 01/04/19 09:58 Last Admin: 01/04/19 10:17 Dose: 30 mg Sodium Chloride (Saline Flush) 10 ml FLUSH Q8HR PRN PRN Reason: keep vein open Last Admin: 01/04/19 10:00 Dose: 10 ml Tiotropium [place] (Spiriva Handihaler) 18 mcg INH DAILY [facility] - Exam Physical Findings Comments:: GENERAL: Elderly white female appearing stated age lying in hospital bed in no acute distress. HEENT: Normocephalic, atraumatic. Conjunctiva clear. Nasal cannula in place. Mucous membranes moist, posterior pharynx unremarkable. NECK: Supple, no masses. CV: Regular rate and rhythm, 3/6 systolic murmur loudest at LUSB, no rubs or gallops. 2+ radial pulses. PULMONARY: Normal effort, clear to auscultation bilaterally but diminished in the bilateral bases, no wheezes, rales, or rhonchi. ABDOMEN: Positive bowel sounds, soft, nontender, nondistended. Ostomy well appearing. EXTREMITIES/DERMATOLOGIC: Mild edema of the L proximal anterior leg where 3cm long laceration-skin tear is noted and patient has pain to palpation surrounding , mild warmth and lonnie appearance. Diffuse ecchymosis and bilateral lower extremities with venous stasis changes. MUSCULOSKELETAL: Moves all extremities well. NEUROLOGICAL: No obvious deficits. PSYCHIATRIC: Alert, interactive, appropriate affect.
[2019-01-07] MEDS ORDERED: Warfarin 2.5 MG Tab PO SCH (18:00)
== END 2019-01-05 16:10 | disposition home or self-care (01) ==
LOC: KA.ED 09:40 → KA.MS 10:56
PROVIDERS: ADMIT Physician Assistant Medical; ATTEND Family Medicine
DX: L03.116 Cellulitis of left lower limb (principal); I13.0 Hypertensive heart and chronic kidney disease with heart failure and stage 1 through stage 4 chronic kidney disease, or unspecified chronic kidney disease; E11.22 Type 2 diabetes mellitus with diabetic chronic kidney disease; N18.9 Chronic kidney disease, unspecified; I50.9 Heart failure, unspecified; D63.1 Anemia in chronic kidney disease; I25.2 Old myocardial infarction; I48.91 Unspecified atrial fibrillation; E78.00 Pure hypercholesterolemia, unspecified; E78.5 Hyperlipidemia, unspecified; D72.829 Elevated white blood cell count, unspecified; M10.9 Gout, unspecified; D75.89 Other specified diseases of blood and blood-forming organs; D50.9 Iron deficiency anemia, unspecified; M54.9 Dorsalgia, unspecified; G89.29 Other chronic pain; F32.9 Major depressive disorder, single episode, unspecified; J44.9 Chronic obstructive pulmonary disease, unspecified; M81.0 Age-related osteoporosis without current pathological fracture; I25.10 Atherosclerotic heart disease of native coronary artery without angina pectoris; E03.9 Hypothyroidism, unspecified; Z88.0 Allergy status to penicillin; Z88.8 Allergy status to other drugs, medicaments and biological substances; Z88.1 Allergy status to other antibiotic agents; Z91.041 Radiographic dye allergy status; Z91.09 Other allergy status, other than to drugs and biological substances; Z79.01 Long term (current) use of anticoagulants; Z95.2 Presence of prosthetic heart valve; Z87.891 Personal history of nicotine dependence; Z79.899 Other long term (current) drug therapy
CPT/HCPCS: 36415; 73590; 80048; 80053; 84550; 85025; 85379; 85610; 85730; 86140; 87070; 87205; 94640; 96372; 96374; 96375; 99284; A9270; G0378; J0696; J1650; J1885; 87147; J7620-GY

== ENCOUNTER 2019-02-08 12:06 | Observation (INO) | payer MEDICARE, BC ==
--- NOTE | 2019-02-08 13:11 | EDM.PDOC ---
ED HPI GENERAL MEDICAL PROBLEM - General Chief Complaint: General Stated Complaint: RASH Time Seen by Provider: 02/08/19 12:45 Source of Information: Reports: Patient History Limitations: Reports: No Limitations - History of Present Illness INITIAL COMMENTS - FREE TEXT/NARRATIVE: 84 YO WF presents to ER with complaints of swelling, redness and rash to anterior neck and chest which began yesterday. Pt denies any difficulty in breathing, no significant pain or discomfort. Pt denies fever/chills, no nausea/ vomiting no chest pain, diaphoresis or dizziness. Pt was sent by Solomon Fragoso Onset: Today Location: Reports: Neck, Chest Severity: Mild Improves with: Reports: None Worsens with: Reports: None Associated Symptoms: Denies: Confusion, Chest Pain, Fever/Chills, Nausea/ Vomiting - Related Data Allergies Allergy/AdvReac Type Severity Reaction Status Date / Time penicillamine Allergy Severe Anaphylactic Verified 02/08/19 12:18 Shock Penicillins Allergy Severe Anaphylactic Verified 02/08/19 12:18 Shock Cephalosporins Allergy Unknown Cannot Verified 02/08/19 12:18 Remember aspirin Allergy Other Verified 02/08/19 12:18 Carbapenems Allergy Cannot Verified 02/08/19 12:18 Remember divalproex sodium Allergy Delusions Verified 02/08/19 12:18 [From Depakote] imipenem Allergy Cannot Verified 02/08/19 12:18 Remember Iodinated Contrast- Oral and Allergy Chest Pain Verified 02/08/19 12:18 IV Dye valproic acid Allergy Confusion Verified 02/08/19 12:18 Home Meds: Home Meds Cholecalciferol (Vitamin D3) [Vitamin D3] 1,000 unit PO DAILY@0800 09/27/13 [ History] Albuterol Sulfate [Albuterol Sulfate HFA] 2 puff INH Q4HR PRN 08/28/14 [History] Omeprazole [Prilosec] 40 mg PO ACBREAKFAST 01/20/15 [History] Venlafaxine [Effexor XR] 150 mg PO DAILY 04/12/15 [History] Docusate Sodium [Colace] 100 mg PO BID 06/27/15 [History] Albuterol [Proventil Neb Soln] 2.5 mg NEB QID PRN 02/25/16 [History] Potassium Chloride [K-Tab ER] 10 meq PO DAILY@0800 02/25/16 [History] Warfarin [Coumadin] 5 mg PO SUTUTHSA@1800 05/11/16 [History] Dapsone 100 mg PO DAILY 06/19/16 [History] Lisinopril [Prinivil] 5 mg PO DAILY 06/19/16 [History] predniSONE [Prednisone] 10 mg PO WITHBREAKFAST 07/17/16 [History] Metoprolol Tartrate 12.5 mg PO BID 11/08/16 [History] Sotalol HCl [Sotalol] 120 mg PO DAILY #30 tablet 11/12/16 [Rx] Clindamycin HCl 600 mg PO ASDIRECTED PRN 01/16/17 [History] Ondansetron [Zofran] 4 mg PO Q4H PRN 01/16/17 [History] Warfarin [Coumadin] 2.5 mg PO MOWEFR@1800 01/16/17 [History] Roflumilast [Daliresp] 500 mcg PO DAILY #30 tablet 01/20/17 [Rx] Menthol [Biofreeze] 1 applic TOP BID PRN 05/21/17 [History] Polyethylene Glycol 3350 [MiraLAX] 17 gm PO DAILY@08 05/21/17 [History] Furosemide [Lasix] 20 mg PO DAILY 12/09/17 [History] Albuterol/Ipratropium [DuoNeb 3.0-0.5 MG/3 ML] 3 ml INH QID PRN 02/24/18 [ History] Denosumab [Prolia] 60 mg SUBCUT Q180D 02/24/18 [History] Tiotropium [Spiriva HandiHaler] 1 puff INH DAILY 02/24/18 [History] atorvaSTATin [Lipitor] 40 mg PO BEDTIME 02/24/18 [History] Allopurinol [Zyloprim] 200 mg PO DAILY 05/08/18 [History] Hydrocodone/Acetaminophen [Hydrocodon-Acetaminophen 5-325] 1 tab PO Q6H PRN 04/15 [History] Baclofen 5 - 10 mg PO QID PRN 07/11/18 [History] Iron,Carbonyl/Ascorbic Acid [Vitron-C Tablet] 1 each PO Q48H #15 tablet. 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,vasculitis Respiratory History: Reports: COPD, Pneumonia, Recurrent, SOB, Other (See Below) Other Respiratory History: pleural effusions, on home oxygen 3L at rest & 4L with activity Gastrointestinal History: Reports: Bowel Obstruction, Diverticulosis, GERD Genitourinary History: Reports: Chronic Renal Insuffiency, Renal Disease, Other (See Below) Other Genitourinary History: acquired cyst of kidney [employer] History: Reports: Other [employer] History: 6 daughters, live term births Musculoskeletal History: Reports: Arthritis, Back Pain, Chronic, Osteoporosis, Other (See Below) Other Musculoskeletal History: compression fracture of thoracolumbar vertebra Neurological History: Reports: Migraines Other Neuro History: new onset confusion starting 06/18/2016 Psychiatric History: Reports: Depression Endocrine/Metabolic History: Reports: Diabetes, Type II, Hypothyroidism, Osteoporosis Hematologic History: Reports: Anemia, Blood Transfusion(s) Immunologic History: Reports: Other (See Below) Other Immunologic History: chronic steroid use Oncologic (Cancer) History: Reports: Breast, Colon Dermatologic History: Reports: Venous Stasis Dermatitis, Other (See Below) Other Dermatologic History: discolored skin from chronic steroid use - Infectious Disease History Infectious Disease History: Reports: Chicken Pox, Measles, Mumps, Rheumatic Fever - Past Surgical History Head Surgeries/Procedures: Reports: None HEENT Surgical History: Reports: Cataract Surgery Cardiovascular Surgical History: Reports: Valve Replacement Respiratory Surgical History: Reports: Thoracentesis GI Surgical History: Reports: Colostomy Female Surgical History: Reports: Breast Biopsy, Mastectomy Endocrine Surgical History: Reports: None Neurological Surgical History: Reports: Laminectomy Musculoskeletal Surgical History: Reports: Other (See Below) Other Musculoskeletal Surgeries/Procedures:: spinal injections, laminectomy Oncologic Surgical History: Reports: Mastectomy Dermatological Surgical History: Reports: None Social & Family History - Family History Family Medical History: Noncontributory HEENT: Reports: None Cardiac: Reports: None Respiratory: Reports: None GI: Reports: None : Reports: None OBGYN: Reports: None Musculoskeletal: Reports: None Neurological: Reports: None Psychiatric: Reports: None Endocrine/Metabolic: Reports: None Hematologic: Reports: None Immunologic: Reports: None Dermatologic: Reports: None Oncologic: Reports: Colon, Pancreatic Other Oncologic Family History: parents had ca - Tobacco Use Smoking Status *Q: Unknown Ever Smoked - Caffeine Use Caffeine Use: Reports: Coffee - Recreational Drug Use Recreational Drug Use: No - Living Situation & Occupation Living situation: Reports: Occupation: Retired ED ROS GENERAL - Review of Systems Review Of Systems: See Below Constitutional: Reports: No Symptoms HEENT: Reports: No Symptoms Respiratory: Reports: No Symptoms Cardiovascular: Reports: No Symptoms Endocrine: Reports: No Symptoms GI/Abdominal: Reports: No Symptoms : Reports: No Symptoms Musculoskeletal: Reports: No Symptoms Skin: Reports: Rash, Erythema Neurological: Reports: No Symptoms Psychiatric: Reports: No Symptoms Hematologic/Lymphatic: Reports: No Symptoms Immunologic: Reports: No Symptoms ED EXAM, GENERAL - Physical Exam Exam: See Below Exam Limited By: No Limitations General Appearance: Alert, WD/WN, No Apparent Distress Nose: Normal Inspection, Normal Mucosa, No Blood Throat/Mouth: Normal Inspection, Normal Lips, Normal Teeth, Normal Gums, Normal Oropharynx, Normal Voice, No Airway Compromise Head: Atraumatic, Normocephalic Neck: Supple, Non-Tender, Full Range of Motion Respiratory/Chest: No Respiratory Distress, Lungs Clear, Normal Breath Sounds, No Accessory Muscle Use, Chest Non-Tender Cardiovascular: Normal Peripheral Pulses, Regular Rate, Rhythm, No Edema, No Gallop, No JVD, No Murmur, No Rub GI/Abdominal: Normal Bowel Sounds, Soft, Non-Tender, No Organomegaly, No Distention, No Abnormal Bruit, No Mass Back Exam: Normal Inspection, Full Range of Motion, NT Extremities: Normal Inspection Neurological: Alert, Oriented, CN II-XII Intact, Normal Cognition, Normal Gait, Normal Reflexes, No Motor/Sensory Deficits Psychiatric: Normal Affect, Normal Mood Skin Exam: Erythema (anterior neck and upper chest), Increased Warmth, Lymphangitis Lymphatic: Adenopathy Course - Vital Signs Last Recorded V/S: Last Vital Signs Temp 36.5 C 02/08/19 12:19 Pulse 63 02/08/19 12:19 Resp 18 02/08/19 12:19 BP 171/51 H 02/08/19 12:19 Pulse Ox 92 L 02/08/19 12:19 - Orders/Labs/Meds Labs: Laboratory Tests 02/08/19 02/08/19 Range/Units 12:35 12:35 WBC 12.71 H (5.00-10.00) 10^3/uL RBC 2.78 L (3.80-5.50) 10^6/uL Hgb 9.5 L (12.0-16.0) g/dL Hct 31.2 L (37.0-47.0) % MCV 112.2 H D (82.0-92.0) fL MCH 34.2 H (27.0-31.0) pg MCHC 30.4 L (32.0-36.0) g/dL RDW 16.4 H (11.5-14.5) % Plt Count 175 (150-400) 10^3/uL MPV 11.6 H (7.4-10.4) fL Immature Gran % (Auto) 0.6 (0.0-5.0) % Neut % (Auto) 85.8 H (50.0-70.0) % Lymph % (Auto) 9.6 L (20.0-40.0) % Dickson % (Auto) 3.3 (2.0-8.0) % Eos % (Auto) 0.4 L (1.0-3.0) % Baso % (Auto) 0.3 (0.0-1.0) % Immature Gran # (Auto) 0.08 (0.00-0.50) 10^3/uL Neut # (Auto) 10.90 H (2.50-7.00) 10^3/uL Lymph # (Auto) 1.22 (1.00-4.00) 10^3/uL Dickson # (Auto) 0.42 (0.10-0.80) 10^3/uL Eos # (Auto) 0.05 L (0.10-0.30) 10^3/uL Baso # (Auto) 0.04 (0.00-0.10) 10^3/uL Macrocytosis 1+ slight Schistocytes Few Sodium 145 (136-145) mmol/L Potassium 4.3 (3.3-5.3) mmol/L Chloride 107 (98-115) mmol/L Carbon Dioxide 32.3 H (21.0-32.0) mmol/L Anion Gap 10.0 (5-15) mmol/L BUN 26 H (6-25) mg/dL Creatinine 1.01 (0.51-1.17) mg/dL Est Cr Clr Drug Dosing 30.85 mL/min Estimated GFR (MDRD) 52 mL/min Glucose 139 H (75 - 99) mg/dL Calcium 8.6 L (8.7-10.3) mg/dL B-Natriuretic Peptide 730 H (0-100) pg/mL Meds: Medications Discontinued Medications Generic Name Dose Route Start Last Admin Trade Name Freq PRN Reason Stop Dose Admin Clindamycin Phosphate 900 mg 02/08/19 13:54 Cleocin IV 02/08/19 13:55 ONETIME ONE Departure - Departure Time of Disposition: 13:34 Disposition: Refer to Observation Condition: Fair Clinical Impression: Cellulitis of neck, Cellulitis of chest wall - Discharge Information Referrals: Elvira Armijo MD [Primary Care Provider] - Forms: ED Department Discharge - Assessment/Plan Assessment:: 1. cellulitis to anterior neck and upper chest with bullous formation Plan: 1. admit to medicine- Observation Dr Julio Robins 2. supportive care 3. clindamycin 900mg IV now 4. remainder of orders per Dr Julio Robins
[2019-02-08] MEDS ORDERED: Clindamycin Phosphate 900 MG/6 ML SDV IV ONE (13:54)
[2019-02-08] MEDS ORDERED: Clindamycin Phosphate 900 MG in Sodium Chloride 0.9% 100 ML IV ONE (14:15)
[2019-02-08] MEDS ORDERED: MENTHOL TOP PRN (18:18)
[2019-02-08] MEDS ORDERED: Albuterol/Ipratropium 3.0-0.5 MG/3 ML Neb Soln INH PRN (18:18)
[2019-02-08] MEDS ORDERED: Baclofen 10 MG Tab PO PRN (18:18)
[2019-02-08] MEDS ORDERED: Albuterol 8 GM Inhaler INH PRN (18:18)
[2019-02-08] MEDS ORDERED: Acetaminophen/HYDROcodone 325-5 MG Tab PO PRN (18:18)
[2019-02-08] MEDS ORDERED: Ondansetron 4 MG Tab.DIS PO PRN (19:45)
[2019-02-08] MEDS: Metoprolol Tartrate 25 MG Tab PO SCH (20:28)
[2019-02-08] MEDS: Docusate Sodium 100 MG Cap PO SCH (20:29)
[2019-02-08] MEDS: atorvaSTATin 40 MG Tab PO SCH (20:30)
[2019-02-08] MEDS: Sulfamethoxazole/Trimethoprim 800-160 MG Tab PO SCH (20:30)
[2019-02-08] MEDS: Arformoterol 15 MCG/2 ML Neb Soln INH SCH (20:31)
[2019-02-08] MEDS: Nystatin Susp 100,000 Unit/ML 5 ML UD Cup PO SCH (20:31)
[2019-02-09] MEDS: Albuterol 0.083% 2.5 MG/3 ML Neb Soln NEB PRN ×2 (01:20→08:49)
[2019-02-09] MEDS: Omeprazole 20 MG Cap.CR PO SCH ×3 (04:10→20:27)
[2019-02-09] MEDS: Levothyroxine 100 MCG Tab PO SCH (06:40)
[2019-02-09] MEDS: predniSONE 10 MG Tab PO SCH (07:33)
[2019-02-09] MEDS: Furosemide 20 MG Tab PO SCH ×2 (07:35→10:33)
[2019-02-09] MEDS: Metoprolol Tartrate 25 MG Tab PO SCH ×3 (07:36→20:27)
[2019-02-09] MEDS: Lisinopril 5 MG Tab PO SCH ×2 (07:36→10:34)
[2019-02-09] MEDS: Polyethylene Glycol 3350 Powder 17 GM Packet PO SCH (07:40)
[2019-02-09] MEDS: Sotalol 80 MG Tab PO SCH (07:40)
[2019-02-09] MEDS: Potassium Chloride 10 MEQ Tab.ER PO SCH (07:44)
[2019-02-09] MEDS: Cholecalciferol (Vitamin D3) 25 MCG Tab PO SCH (07:46)
[2019-02-09 08:47] LABS: ANION GAP 13.8 mmol/L (5-15); CHLORIDE,CL 107 mmol/L (98-115); SODIUM,NA 146 mmol/L (136-145)
[2019-02-09] MEDS: Arformoterol 15 MCG/2 ML Neb Soln INH SCH (09:00)
[2019-02-09] MEDS ORDERED: Lidocaine 5% 700 MG Patch TOP SCH (09:00)
[2019-02-09] MEDS ORDERED: Tiotropium Inhaler 18 MCG Inhalation Powder Cap Kit of 5 INH SCH (09:00)
[2019-02-09] MEDS ORDERED: Roflumilast 500 MCG Tab PO SCH (09:00)
--- NOTE | 2019-02-09 09:10 | CR ---
[id number] RAD/RAD Chest PA or AP 1V EXAM: SINGLE VIEW CHEST. INDICATION: SHORTNESS OF BREATH COMPARISON: CORRELATION IS MADE WITH THE EXAM OF SEPTEMBER 27, 2018. FINDINGS: A very limited study was obtained. There is significant pulmonary edema. The cardiac silhouette is enlarged but stable. The thoracic aorta is tortuous but stable. Surgical clips are seen in the right axillary region. IMPRESSION: SIGNIFICANT CHF. Georges Tristan MD 02/09/19 0909 Thank you for allowing us to participate in the care of your patient.
[2019-02-09] MEDS: Venlafaxine 150 MG Cap.ER PO SCH (10:23)
[2019-02-09] MEDS: Sulfamethoxazole/Trimethoprim 800-160 MG Tab PO SCH ×2 (10:23→20:27)
[2019-02-09] MEDS: Allopurinol 100 MG Tab PO SCH (10:23)
[2019-02-09] MEDS: Nystatin Susp 100,000 Unit/ML 5 ML UD Cup PO SCH ×3 (10:24→20:29)
[2019-02-09] MEDS: Docusate Sodium 100 MG Cap PO SCH ×2 (10:24→20:26)
[2019-02-09] MEDS: Lidocaine 5% 700 MG Patch TOP SCH (10:25)
[2019-02-09] MEDS ORDERED: Furosemide 40 MG/4 ML VIAL IVPUSH ONE (11:01)
--- NOTE | 2019-02-09 11:03 | PCM.PN ---
- General Info Date of Service: 02/09/19 Subjective Update: Area of chest with redness and warmth with improvement. Receding from marker lines drawn on the evening of 02/08/19. Around 0300 this morning, patient awoke with respiratory distress and required increased amounts of oxygen to maintain saturations. I was notified around 0830 of clinical status and ordered labs, EKG, and XR as noted in assessment/plan. She admits to some anxiety around the time when the symptoms started, but feels this is because she was "feeling like I was going to " because she was short of breath. She denies any known inciting factors. Denies any associated chest pain, productive cough, edema, or other concerns. - Patient Data Vitals - Most Recent: Last Vital Signs Temp 35.6 C 02/09/19 09:23 Pulse 80 02/09/19 09:23 Resp 26 H 02/09/19 09:23 BP 155/73 H 02/09/19 09:23 Pulse Ox 96 02/09/19 09:23 Weight - Most Recent: 51.256 kg I&O - Last 24 Hours: Intake & Output 02/08/19 02/09/19 02/09/19 22:59 06:59 14:59 Intake Total 450 150 Output Total 200 400 Balance 250 -250 Lab Results Last 24 Hours: Laboratory Results - last 24 hr 02/08/19 02/08/19 02/08/19 Range/Units 12:35 12:35 12:35 WBC 12.71 H (5.00-10.00) 10^3/uL RBC 2.78 L (3.80-5.50) 10^6/uL Hgb 9.5 L (12.0-16.0) g/dL Hct 31.2 L (37.0-47.0) % MCV 112.2 H D (82.0-92.0) fL MCH 34.2 H (27.0-31.0) pg MCHC 30.4 L (32.0-36.0) g/dL RDW 16.4 H (11.5-14.5) % Plt Count 175 (150-400) 10^3/uL MPV 11.6 H (7.4-10.4) fL Immature Gran % (Auto) 0.6 (0.0-5.0) % Neut % (Auto) 85.8 H (50.0-70.0) % Lymph % (Auto) 9.6 L (20.0-40.0) % Victoria % (Auto) 3.3 (2.0-8.0) % Eos % (Auto) 0.4 L (1.0-3.0) % Baso % (Auto) 0.3 (0.0-1.0) % Immature Gran # (Auto) 0.08 (0.00-0.50) 10^3/uL Neut # (Auto) 10.90 H (2.50-7.00) 10^3/uL Lymph # (Auto) 1.22 (1.00-4.00) 10^3/uL Victoria # (Auto) 0.42 (0.10-0.80) 10^3/uL Eos # (Auto) 0.05 L (0.10-0.30) 10^3/uL Baso # (Auto) 0.04 (0.00-0.10) 10^3/uL Macrocytosis 1+ slight Schistocytes Few ESR 16 (0-20) mm/hr PT (8.9-11.4) SEC INR (0.9-1.1) D-Dimer, Quantitative (<400) ng/mL Sodium 145 (136-145) mmol/L Potassium 4.3 (3.3-5.3) mmol/L Chloride 107 (98-115) mmol/L Carbon Dioxide 32.3 H (21.0-32.0) mmol/L Anion Gap 10.0 (5-15) mmol/L BUN 26 H (6-25) mg/dL Creatinine 1.01 (0.51-1.17) mg/dL Est Cr Clr Drug Dosing 30.85 mL/min Estimated GFR (MDRD) 52 mL/min Glucose 139 H (75 - 99) mg/dL Calcium 8.6 L (8.7-10.3) mg/dL Total Bilirubin (0.2-1.0) mg/dL AST (15-37) U/L ALT (12-78) U/L Alkaline Phosphatase (46-116) IU/L Troponin I (0.00-0.070) ng/mL C-Reactive Protein (0.0-0.9) mg/dL B-Natriuretic Peptide 730 H (0-100) pg/mL Total Protein (6.4-8.2) g/dL Albumin (3.00-4.80) g/dL 02/08/19 02/09/19 02/09/19 Range/Units 12:35 07:15 07:15 WBC 11.54 H (5.00-10.00) 10^3/uL RBC 2.64 L (3.80-5.50) 10^6/uL Hgb 9.0 L (12.0-16.0) g/dL Hct 29.3 L (37.0-47.0) % MCV 111.0 H (82.0-92.0) fL MCH 34.1 H (27.0-31.0) pg MCHC 30.7 L (32.0-36.0) g/dL RDW 16.1 H (11.5-14.5) % Plt Count 177 (150-400) 10^3/uL MPV 11.7 H (7.4-10.4) fL Immature Gran % (Auto) 0.6 (0.0-5.0) % Neut % (Auto) 68.8 (50.0-70.0) % Lymph % (Auto) 21.1 (20.0-40.0) % Victoria % (Auto) 8.2 H (2.0-8.0) % Eos % (Auto) 0.8 L (1.0-3.0) % Baso % (Auto) 0.5 (0.0-1.0) % Immature Gran # (Auto) 0.07 (0.00-0.50) 10^3/uL Neut # (Auto) 7.93 H (2.50-7.00) 10^3/uL Lymph # (Auto) 2.44 (1.00-4.00) 10^3/uL Victoria # (Auto) 0.95 H (0.10-0.80) 10^3/uL Eos # (Auto) 0.09 L (0.10-0.30) 10^3/uL Baso # (Auto) 0.06 (0.00-0.10) 10^3/uL Macrocytosis 1+ slight Schistocytes ESR (0-20) mm/hr PT (8.9-11.4) SEC INR (0.9-1.1) D-Dimer, Quantitative (<400) ng/mL Sodium 146 H (136-145) mmol/L Potassium 3.9 (3.3-5.3) mmol/L Chloride 107 (98-115) mmol/L Carbon Dioxide 29.1 (21.0-32.0) mmol/L Anion Gap 13.8 (5-15) mmol/L BUN 28 H (6-25) mg/dL Creatinine 1.03 (0.51-1.17) mg/dL Est Cr Clr Drug Dosing 30.25 mL/min Estimated GFR (MDRD) 51 mL/min Glucose 107 H (75 - 99) mg/dL Calcium 9.0 (8.7-10.3) mg/dL Total Bilirubin 0.7 (0.2-1.0) mg/dL AST 23 (15-37) U/L ALT 41 (12-78) U/L Alkaline Phosphatase 98 (46-116) IU/L Troponin I < 0.04 (0.00-0.070) ng/mL C-Reactive Protein 1.3 H (0.0-0.9) mg/dL B-Natriuretic Peptide 933 H (0-100) pg/mL Total Protein 5.1 L (6.4-8.2) g/dL Albumin 2.98 L (3.00-4.80) g/dL 02/09/19 02/09/19 Range/Units 07:15 07:15 WBC (5.00-10.00) 10^3/uL RBC (3.80-5.50) 10^6/uL Hgb (12.0-16.0) g/dL Hct (37.0-47.0) % MCV (82.0-92.0) fL MCH (27.0-31.0) pg MCHC (32.0-36.0) g/dL RDW (11.5-14.5) % Plt Count (150-400) 10^3/uL MPV (7.4-10.4) fL Immature Gran % (Auto) (0.0-5.0) % Neut % (Auto) (50.0-70.0) % Lymph % (Auto) (20.0-40.0) % Victoria % (Auto) (2.0-8.0) % Eos % (Auto) (1.0-3.0) % Baso % (Auto) (0.0-1.0) % Immature Gran # (Auto) (0.00-0.50) 10^3/uL Neut # (Auto) (2.50-7.00) 10^3/uL Lymph # (Auto) (1.00-4.00) 10^3/uL Victoria # (Auto) (0.10-0.80) 10^3/uL Eos # (Auto) (0.10-0.30) 10^3/uL Baso # (Auto) (0.00-0.10) 10^3/uL Macrocytosis Schistocytes ESR (0-20) mm/hr PT 13.8 H D (8.9-11.4) SEC INR 1.4 H (0.9-1.1) D-Dimer, Quantitative 109 (<400) ng/mL Sodium (136-145) mmol/L Potassium (3.3-5.3) mmol/L Chloride (98-115) mmol/L Carbon Dioxide (21.0-32.0) mmol/L Anion Gap (5-15) mmol/L BUN (6-25) mg/dL Creatinine (0.51-1.17) mg/dL Est Cr Clr Drug Dosing mL/min Estimated GFR (MDRD) mL/min Glucose (75 - 99) mg/dL Calcium (8.7-10.3) mg/dL Total Bilirubin (0.2-1.0) mg/dL AST (15-37) U/L ALT (12-78) U/L Alkaline Phosphatase (46-116) IU/L Troponin I (0.00-0.070) ng/mL C-Reactive Protein (0.0-0.9) mg/dL B-Natriuretic Peptide (0-100) pg/mL Total Protein (6.4-8.2) g/dL Albumin (3.00-4.80) g/dL Med Orders - Current: Current Medications Hydrocodone Bitart/Acetaminophen (Bucyrus 325-5 Mg) 1 tab PO Q6H PRN PRN Reason: Pain Albuterol (Proventil Neb Soln) 2.5 mg NEB QID PRN PRN Reason: Shortness of Breath Last Admin: 02/09/19 08:49 Dose: 2.5 mg Albuterol (Ventolin Hfa) 0 gm INH Q4H PRN PRN Reason: Shortness of Breath Albuterol/Ipratropium (Duoneb 3.0-0.5 Mg/3 Ml) 3 ml INH QID PRN PRN Reason: Shortness of Breath Last Admin: 02/09/19 05:58 Dose: 3 ml Allopurinol (Zyloprim) 200 mg PO DAILY [facility] Last Admin: 02/09/19 10:23 Dose: 200 mg Arformoterol Tartrate (Brovana) 15 mcg INH BIDRT [facility] Last Admin: 02/08/19 20:31 Dose: 15 mcg Atorvastatin Calcium (Lipitor) 40 mg PO BEDTIME [facility] Last Admin: 02/08/19 20:30 Dose: 40 mg Baclofen (Lioresal) 5 - 10 mg PO QID PRN PRN Reason: Spasms Cholecalciferol (Vitamin D3) 25 mcg PO DAILY@0800 [facility] Last Admin: 02/09/19 07:46 Dose: 25 mcg Docusate Sodium (Colace) 100 mg PO BID [facility] Last Admin: 02/09/19 10:24 Dose: 100 mg Furosemide (Lasix) 20 mg PO DAILY [facility] Last Admin: 02/09/19 10:33 Dose: Not Given Furosemide (Lasix) 20 mg IVPUSH NOW ONE Stop: 02/09/19 11:02 Levothyroxine Sodium (Synthroid) 100 mcg PO ACBREAKFAST [facility] Last Admin: 02/09/19 06:40 Dose: 100 mcg Lidocaine (Lidoderm 5%) 700 mg TOP DAILY [facility] Last Admin: 02/09/19 10:25 Dose: 700 mg Lisinopril (Prinivil) 5 mg PO DAILY [facility] Last Admin: 02/09/19 10:34 Dose: Not Given Metoprolol Tartrate (Lopressor) 12.5 mg PO BID [facility] Last Admin: 02/09/19 10:34 Dose: Not Given Miscellaneous Information (Remove Patch) 1 ea TRDERM BEDTIME [facility] Last Admin: 02/08/19 20:34 Dose: Not Given Non-Formulary Medication (Dapsone) 100 mg PO DAILY [facility] Non-Formulary Medication (Iron,Carbonyl/Ascorbic Acid [Vitron-C Tablet]) 1 each PO Q48H [facility] Nystatin (Mycostatin) 5 ml PO TID [facility] Last Admin: 02/09/19 10:24 Dose: 5 ml Omeprazole (Omeprazole) 40 mg PO ACBREAKFAST [facility] Last Admin: 02/09/19 06:30 Dose: Not Given Ondansetron HCl (Zofran Odt) 4 mg PO Q4H PRN PRN Reason: Nausea Ptom Menthol [ (Biofreeze]) 1 each TOP BID PRN PRN Reason: Pain Polyethylene Glycol (Miralax) 17 gm PO DAILY@08 [facility] Last Admin: 02/09/19 07:40 Dose: 17 gm Potassium Chloride (Klor-Con 10) 10 meq PO DAILY@0800 [facility] Last Admin: 02/09/19 07:44 Dose: Not Given Prednisone (Prednisone) 10 mg PO WITHBREAKFAST [facility] Last Admin: 02/09/19 07:33 Dose: 10 mg Roflumilast (Daliresp) 500 mcg PO DAILY [facility] Last Admin: 02/09/19 10:23 Dose: 500 mcg Sotalol HCl (Betapace) 120 mg PO DAILY [facility] Last Admin: 02/09/19 07:40 Dose: 120 mg Tiotropium [place] (Spiriva Handihaler) 18 mcg INH DAILY [facility] Trimethoprim/Sulfamethoxazole (Septra Ds) 1 tab PO BID [facility] Stop: 02/15/19 21:01 Last Admin: 02/09/19 10:23 Dose: 1 tab Venlafaxine HCl (Effexor Xr) 150 mg PO DAILY [facility] Last Admin: 02/09/19 10:23 Dose: 150 mg Discontinued Medications Clindamycin Phosphate (Cleocin) 900 mg IV ONETIME ONE Stop: 02/08/19 13:55 Last Admin: 02/08/19 14:30 Dose: Not Given Clindamycin Phosphate 900 mg/ (Sodium Chloride) 106 mls @ 159 mls/hr IV NOW ONE Stop: 02/08/19 14:54 Last Admin: 02/08/19 14:23 Dose: 159 mls/hr Lidocaine (Lidoderm 5%) 700 mg TOP DAILY [facility] - Exam Physical Findings Comments:: GENERAL: Elderly white female appearing stated age sitting on hospital bed in no acute distress. HEENT: Normocephalic, atraumatic. Conjunctiva clear. Nasal cannula in place. Mucous membranes moist, posterior pharynx unremarkable. NECK: Supple, no masses. CV: Regular rate and rhythm, 3/6 systolic murmur loudest at LUSB, no rubs or gallops. 2+ radial pulses. PULMONARY: Normal effort, fine crackles and occasional rhonchi in the bilateral lung zaldivar, no wheezes. ABDOMEN: Positive bowel sounds, soft, nontender, nondistended. Ostomy well appearing. EXTREMITIES: Diffuse ecchymosis and bilateral lower extremities with venous stasis changes. DERMATOLOGIC: Diffuse redness with associated warmth of the anterior upper chest and neck; discrete borders without confluence; no palpable abnormality; interval improvement since 02/08/19. MUSCULOSKELETAL: Moves all extremities well. NEUROLOGICAL: No obvious deficits. PSYCHIATRIC: Alert, interactive, mildly anxious affect. - Problem List Review Problem List Initiated/Reviewed/Updated: Yes - My Orders Last 24 Hours: My Active Orders 02/08/19 14:00 Resuscitation Status Routine 02/08/19 18:18 Acetaminophen/HYDROcodone [Bucyrus 325-5 MG] 1 tab PO Q6H PRN Albuterol [Proventil Neb Soln] 2.5 mg NEB QID PRN Albuterol [Ventolin HFA] 0 gm INH Q4H PRN Albuterol/Ipratropium [DuoNeb 3.0-0.5 MG/3 ML] 3 ml INH QID PRN Baclofen [Lioresal] 5 - 10 mg PO QID PRN Patient's Own Medication [Ptom] 1 each TOP BID PRN 02/08/19 18:30 Iron,Carbonyl/Ascorbic Acid [Vitron-C Tablet] 1 each PO Q48H 02/08/19 19:45 Ondansetron [Zofran ODT] 4 mg PO Q4H PRN 02/08/19 20:00 Arformoterol [Brovana] 15 mcg INH BIDRT 02/08/19 21:00 Docusate Sodium [Colace] 100 mg PO BID Metoprolol Tartrate [Lopressor] 12.5 mg PO BID Nystatin [Mycostatin] 5 ml PO TID Remove Patch 1 ea TRDERM BEDTIME Sulfamethoxazole/Trimethoprim [Septra DS] 1 tab PO BID atorvaSTATin [Lipitor] 40 mg PO BEDTIME 02/09/19 07:30 Levothyroxine [Synthroid] 100 mcg PO ACBREAKFAST Omeprazole 40 mg PO ACBREAKFAST 02/09/19 08:00 Cholecalciferol (Vitamin D3) [Vitamin D3] 25 mcg PO DAILY@0800 Polyethylene Glycol 3350 [MiraLAX] 17 gm PO DAILY@08 Potassium Chloride [Klor-Con 10] 10 meq PO DAILY@0800 predniSONE 10 mg PO WITHBREAKFAST 02/09/19 08:14 EKG 12 Lead [EK] Routine 02/09/19 08:15 EKG Documentation Completion [RC] ASDIRECTED 02/09/19 09:00 Allopurinol [Zyloprim] 200 mg PO DAILY Dapsone 100 mg PO DAILY Furosemide [Lasix] 20 mg PO DAILY Lidocaine 5% [Lidoderm 5%] 700 mg TOP DAILY Lisinopril [Prinivil] 5 mg PO DAILY Roflumilast [Daliresp] 500 mcg PO DAILY Sotalol [Betapace] 120 mg PO DAILY Tiotropium [Spiriva HandiHaler] 18 mcg INH DAILY Venlafaxine [Effexor XR] 150 mg PO DAILY 02/09/19 11:01 Furosemide [Lasix] 20 mg IVPUSH NOW ONE 02/09/19 11:02 Antiembolic Devices [RC] PER UNIT ROUTINE SCD [Sequential Compression Device] [OM.PC] Routine 02/10/19 05:11 BASIC METABOLIC PANEL,BMP [CHEM] AM - Assessment Assessment:: HPI summary: Ms. 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 She was transferred by EMS to the [facility] ED. ED course: She was noted to have mildly elevated neutrophilia compared to baseline (on chronic prednisone) but with otherwise normal/stable labs. She was given one dose of clindamycin in the ED. Given multiple comorbidities and fairly rapid progression of erythema, she was recommended for admission to observation for monitoring and management. Hospitalization problems: # Anterior chest cellulitis # Leukocytosis with neutrophilia: Baseline WBC 10-13 wtih 75-80% neutrophils. Admission WBC 12 with 85% neutrophils. Though ESR and CRP not dramatically elevated, she has had excellent clinical improvement with antibiotic therapy (switched from clindamycin to Bactrim). - Bactrim DS po BID for planned 7 day course # Acute on chronic hypoxic respiratory failure # HFpEF Work-up performed notable for evidence of fluid overload on CXR and with elevation of BNP to the 900s. EKG, troponin, and D-dimer all negative for abnormality. - Lasix 20mg IV additional dose now - Wean oxygen as able Chronic, stable medical conditions: # Chronic mixed pulmonary disease / Chronic hypoxic respiratory failure: Stable. Last PFTs 2016 with moderate restriction. Continue baseline oxygen, Brovana Daliresp, tiotropium and prn DuoNebs/albuterol. # CAD / HFpEF / HTN: Asymptomatic. Overloaded fluid status, as above. BP mildly elevated. Continue metoprolol, lisinopril, and furosemide/KCl. # Atrial fibrillation: Rhythm controlled. Continue sotalol. Anticoagulation currently held for planned upcoming facet injection on 02/12/19. # Hx TAVR: Anticoagulation as above. # Ostomy status: Hx colon resection for multiple adenomas. No clinical concerns. # GERD: Stable. Continue PPI. # Constipation: Stable. Continue PEG and docusate. # Suyapa's granulomatosis: Stable. Continue dapsone and prednisone. # Gout: 12/20/18 uric acid 4.4. Continue allopurinol. # Hypothyroidism: 10/27/18 TSH 2.42. Continue levothyroxine. # HLD: Last lipid panel 06/03/2018. Continue statin. # Iron deficiency anemia: Baseline hemoglobin 9-10. Continue iron-vitamin C. # Macrocytosis: Stable. Recent folate and B12 testing normal. # Osteopenia: Last DEXA 2012. On Prolia, which should continue given ongoing prednisone use. # Chronic back pain / Chronic opiate use: Stable. Continue lidocaine patch, Bucyrus prn and baclofen TID. # Depression: Stable. Continue venlafaxine. Hospitalization details: # FEN: No IVF. Electrolytes normal. Regular diet as tolerated. # PPX: SCDs for DVT ppx; holding warfarin due to upcoming procedure. # Code status: DNR/DNI. # Emergency contact: , who was updated at bedside. # Disposition: Continue in observation status. Anticipate discharge to [facility] tomorrow if doing well; or transfer to acute status if having ongoing concern.
[2019-02-09] MEDS ORDERED: TIOTROPIUM 18 MCG INH SCH ×2 (12:32→13:38)
[2019-02-09] MEDS ORDERED: IPRATROPIUM INH PRN (14:00)
[2019-02-09] MEDS ORDERED: ALBUTEROL INH PRN (14:00)
[2019-02-09] MEDS: ALBUTEROL INH PRN (14:30)
[2019-02-09] MEDS: IPRATROPIUM INH PRN (14:30)
[2019-02-09] MEDS: DAPSONE 100 MG PO SCH (15:01)
--- NOTE | 2019-02-09 19:17 | PCM.HP.2 ---
H&P History of Present Illness - General Date of Service: 02/08/19 Admit Problem/Dx: Admission Diagnosis/Problem Admission Diagnosis/Problem Cellulitis of neck Source of Information: Patient, Family, Old Records - History of Present Illness Initial Comments - Free Text/Narative: Ms. Perla was in her usual state of health without any concerns when on the morning of 02/08/19, staff at [facility] where she resides noted redness and warmth to the anterior chest. She was transported to the [facility] ED for further evaluation. She denies any change in topical products, clothing or detergent, or other environmental changes. States it is not painful, itchy, or otherwise irritated. No known alleviating or aggravating factors. - Related Data Allergies/Adverse Reactions: Allergies Allergy/AdvReac Type Severity Reaction Status Date / Time penicillamine Allergy Severe Anaphylactic Verified 02/08/19 12:18 Shock Penicillins Allergy Severe Anaphylactic Verified 02/08/19 12:18 Shock Cephalosporins Allergy Unknown Cannot Verified 02/08/19 12:18 Remember aspirin Allergy Other Verified 02/08/19 12:18 Carbapenems Allergy Cannot Verified 02/08/19 12:18 Remember divalproex sodium Allergy Delusions Verified 02/08/19 12:18 [From Depakote] imipenem Allergy Cannot Verified 02/08/19 12:18 Remember Iodinated Contrast- Oral and Allergy Chest Pain Verified 02/08/19 12:18 IV Dye valproic acid Allergy Confusion Verified 02/08/19 12:18 Home Medications: Home Meds Cholecalciferol (Vitamin D3) [Vitamin D3] 1,000 unit PO DAILY@0800 09/27/13 [ History] Albuterol Sulfate [Albuterol Sulfate HFA] 2 puff INH Q4HR PRN 08/28/14 [History] Omeprazole [Prilosec] 40 mg PO BEDTIME 01/20/15 [History] Venlafaxine [Effexor XR] 150 mg PO DAILY 04/12/15 [History] Docusate Sodium [Colace] 100 mg PO BID 06/27/15 [History] Albuterol [Proventil Neb Soln] 2.5 mg NEB QID PRN 02/25/16 [History] Potassium Chloride [K-Tab ER] 10 meq PO DAILY@0800 02/25/16 [History] Dapsone 100 mg PO DAILY 06/19/16 [History] Lisinopril [Prinivil] 5 mg PO DAILY 06/19/16 [History] predniSONE [Prednisone] 10 mg PO WITHBREAKFAST 07/17/16 [History] Metoprolol Tartrate 12.5 mg PO BID 11/08/16 [History] Sotalol HCl [Sotalol] 120 mg PO DAILY #30 tablet 11/12/16 [Rx] Clindamycin HCl 600 mg PO ASDIRECTED PRN 01/16/17 [History] Ondansetron [Zofran] 4 mg PO Q4H PRN 01/16/17 [History] Roflumilast [Daliresp] 500 mcg PO DAILY #30 tablet 01/20/17 [Rx] Menthol [Biofreeze] 1 applic TOP BID PRN 05/21/17 [History] Polyethylene Glycol 3350 [MiraLAX] 17 gm PO DAILY@08 05/21/17 [History] Furosemide [Lasix] 20 mg PO DAILY 12/09/17 [History] Albuterol/Ipratropium [DuoNeb 3.0-0.5 MG/3 ML] 3 ml INH QID PRN 02/24/18 [ History] Denosumab [Prolia] 60 mg SUBCUT Q180D 02/24/18 [History] Tiotropium [Spiriva HandiHaler] 1 puff INH DAILY 02/24/18 [History] atorvaSTATin [Lipitor] 40 mg PO BEDTIME 02/24/18 [History] Allopurinol [Zyloprim] 200 mg PO DAILY 05/08/18 [History] Hydrocodone/Acetaminophen [Hydrocodon-Acetaminophen 5-325] 1 tab PO Q6H PRN 04/15 [History] Baclofen 5 - 10 mg PO QID PRN 07/11/18 [History] Iron,Carbonyl/Ascorbic Acid [Vitron-C Tablet] 1 each PO Q48H #15 tablet. 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,vasculitis Respiratory History: Reports: COPD, Pneumonia, Recurrent, SOB, Other (See Below) Other Respiratory History: pleural effusions, on home oxygen 3L at rest & 4L with activity Gastrointestinal History: Reports: Bowel Obstruction, Diverticulosis, GERD Genitourinary History: Reports: Chronic Renal Insuffiency, Renal Disease, Other (See Below) Other Genitourinary History: acquired cyst of kidney [employer] 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[employer] History: Reports: Other OB/BYN History: 6 daughters, live term births Musculoskeletal History: Reports: Arthritis, Back Pain, Chronic, Osteoporosis, Other (See Below) Other Musculoskeletal History: compression fracture of thoracolumbar vertebra Neurological History: Reports: Migraines Other Neuro History: new onset confusion starting 06/18/2016 Psychiatric History: Reports: Depression Endocrine/Metabolic History: Reports: Diabetes, Type II, Hypothyroidism, Osteoporosis Hematologic History: Reports: Anemia, Blood Transfusion(s) Immunologic History: Reports: Other (See Below) Other Immunologic History: chronic steroid use Oncologic (Cancer) History: Reports: Breast, Colon Dermatologic History: Reports: Venous Stasis Dermatitis, Other (See Below) Other Dermatologic History: discolored skin from chronic steroid use - Infectious Disease History Infectious Disease History: Reports: Chicken Pox, Measles, Mumps, Rheumatic Fever - Past Surgical History Head Surgeries/Procedures: Reports: None HEENT Surgical History: Reports: Cataract Surgery Cardiovascular Surgical History: Reports: Valve Replacement Respiratory Surgical History: Reports: Thoracentesis GI Surgical History: Reports: Colostomy Female Surgical History: Reports: Breast Biopsy, Mastectomy Endocrine Surgical History: Reports: None Neurological Surgical History: Reports: Laminectomy Musculoskeletal Surgical History: Reports: Other (See Below) Other Musculoskeletal Surgeries/Procedures:: spinal injections, laminectomy Oncologic Surgical History: Reports: Mastectomy Dermatological Surgical History: Reports: None Social & Family History - Family History Family Medical History: Noncontributory HEENT: Reports: None Cardiac: Reports: None Respiratory: Reports: None GI: Reports: None : Reports: None OBGYN: Reports: None Musculoskeletal: Reports: None Neurological: Reports: None Psychiatric: Reports: None Endocrine/Metabolic: Reports: None Hematologic: Reports: None Immunologic: Reports: None Dermatologic: Reports: None Oncologic: Reports: Colon, Pancreatic Other Oncologic Family History: parents had ca - Tobacco Use Smoking Status *Q: Former Smoker Used Tobacco, but Quit: Yes Month/Year Tobacco Last Used: 50 - Caffeine Use Caffeine Use: Reports: Coffee - Recreational Drug Use Recreational Drug Use: No - Living Situation & Occupation Living situation: Reports: Occupation: Retired H&P Review of Systems - Review of Systems: Review Of Systems: See Below General: Denies: Fever, Chills, Malaise, Fatigue, Decreased Appetite HEENT: Denies: Ear Pain, Eye Pain, Headaches, Sinus Congestion, Sore Throat Pulmonary: Reports: Shortness of Breath (chronic). Denies: Wheezing, Pleuritic Chest Pain, Cough Cardiovascular: Denies: Chest Pain, Palpitations, Dyspnea on Exertion, Orthopnea Gastrointestinal: Denies: Abdominal Pain, Bloody Stool, Constipation, Diarrhea, Decreased Appetite Genitourinary: Denies: Dysuria, Frequency, Burning, Pain Musculoskeletal: Denies: Neck Pain, Back Pain, Joint Swelling Skin: Reports: Bruising. Denies: Rash, Wound Psychiatric: Denies: Confusion, Depression, Anxiety Neurological: Denies: Dizziness, Headache, Numbness, Paresthesia, Syncope Hematologic/Lymphatic: Reports: Easy Bleeding, Easy Bruising. Denies: Swollen Glands Exam - Exam Exam: See Below - Vital Signs Vital Signs: Last Vital Signs Temp 35.6 C 02/09/19 09:23 Pulse 80 02/09/19 09:23 Resp 26 H 02/09/19 09:23 BP 155/73 H 02/09/19 09:23 Pulse Ox 96 02/09/19 09:23 Weight: 51.256 kg - Exam Physical Exam Comments:: GENERAL: Elderly white female appearing stated age sitting on hospital bed in no acute distress. HEENT: Normocephalic, atraumatic. Conjunctiva clear. Nasal cannula in place. Mucous membranes moist, posterior pharynx unremarkable. NECK: Supple, no masses. CV: Regular rate and rhythm, 3/6 systolic murmur loudest at LUSB, no rubs or gallops. 2+ radial pulses. PULMONARY: Normal effort, clear to auscultation bilaterally but diminished in the bilateral bases, no wheezes, rales, or rhonchi. ABDOMEN: Positive bowel sounds, soft, nontender, nondistended. Ostomy well appearing. EXTREMITIES/DERMATOLOGIC: Mild edema of the L proximal anterior leg where 3cm long laceration-skin tear is noted and patient has pain to palpation surrounding , mild warmth and lonnie appearance. Diffuse ecchymosis and bilateral lower extremities with venous stasis changes. MUSCULOSKELETAL: Moves all extremities well. NEUROLOGICAL: No obvious deficits. PSYCHIATRIC: Alert, interactive, appropriate affect. - Patient Data Lab Results Last 24 hrs: Laboratory Results - last 24 hr 02/08/19 02/08/19 02/08/19 Range/Units 12:35 12:35 12:35 WBC 12.71 H (5.00-10.00) 10^3/uL RBC 2.78 L (3.80-5.50) 10^6/uL Hgb 9.5 L (12.0-16.0) g/dL Hct 31.2 L (37.0-47.0) % MCV 112.2 H D (82.0-92.0) fL MCH 34.2 H (27.0-31.0) pg MCHC 30.4 L (32.0-36.0) g/dL RDW 16.4 H (11.5-14.5) % Plt Count 175 (150-400) 10^3/uL MPV 11.6 H (7.4-10.4) fL Immature Gran % (Auto) 0.6 (0.0-5.0) % Neut % (Auto) 85.8 H (50.0-70.0) % Lymph % (Auto) 9.6 L (20.0-40.0) % [place] % (Auto) 3.3 (2.0-8.0) % Eos % (Auto) 0.4 L (1.0-3.0) % Baso % (Auto) 0.3 (0.0-1.0) % Immature Gran # (Auto) 0.08 (0.00-0.50) 10^3/uL Neut # (Auto) 10.90 H (2.50-7.00) 10^3/uL Lymph # (Auto) 1.22 (1.00-4.00) 10^3/uL [place] # (Auto) 0.42 (0.10-0.80) 10^3/uL Eos # (Auto) 0.05 L (0.10-0.30) 10^3/uL Baso # (Auto) 0.04 (0.00-0.10) 10^3/uL Macrocytosis 1+ slight Schistocytes Few ESR 16 (0-20) mm/hr PT (8.9-11.4) SEC INR (0.9-1.1) D-Dimer, Quantitative (<400) ng/mL Sodium 145 (136-145) mmol/L Potassium 4.3 (3.3-5.3) mmol/L Chloride 107 (98-115) mmol/L Carbon Dioxide 32.3 H (21.0-32.0) mmol/L Anion Gap 10.0 (5-15) mmol/L BUN 26 H (6-25) mg/dL Creatinine 1.01 (0.51-1.17) mg/dL Est Cr Clr Drug Dosing 30.85 mL/min Estimated GFR (MDRD) 52 mL/min Glucose 139 H (75 - 99) mg/dL Calcium 8.6 L (8.7-10.3) mg/dL Total Bilirubin (0.2-1.0) mg/dL AST (15-37) U/L ALT (12-78) U/L Alkaline Phosphatase (46-116) IU/L Troponin I (0.00-0.070) ng/mL C-Reactive Protein (0.0-0.9) mg/dL B-Natriuretic Peptide 730 H (0-100) pg/mL Total Protein (6.4-8.2) g/dL Albumin (3.00-4.80) g/dL 02/08/19 02/09/19 02/09/19 Range/Units 12:35 07:15 07:15 WBC 11.54 H (5.00-10.00) 10^3/uL RBC 2.64 L (3.80-5.50) 10^6/uL Hgb 9.0 L (12.0-16.0) g/dL Hct 29.3 L (37.0-47.0) % MCV 111.0 H (82.0-92.0) fL MCH 34.1 H (27.0-31.0) pg MCHC 30.7 L (32.0-36.0) g/dL RDW 16.1 H (11.5-14.5) % Plt Count 177 (150-400) 10^3/uL MPV 11.7 H (7.4-10.4) fL Immature Gran % (Auto) 0.6 (0.0-5.0) % Neut % (Auto) 68.8 (50.0-70.0) % Lymph % (Auto) 21.1 (20.0-40.0) % [place] % (Auto) 8.2 H (2.0-8.0) % Eos % (Auto) 0.8 L (1.0-3.0) % Baso % (Auto) 0.5 (0.0-1.0) % Immature Gran # (Auto) 0.07 (0.00-0.50) 10^3/uL Neut # (Auto) 7.93 H (2.50-7.00) 10^3/uL Lymph # (Auto) 2.44 (1.00-4.00) 10^3/uL [place] # (Auto) 0.95 H (0.10-0.80) 10^3/uL Eos # (Auto) 0.09 L (0.10-0.30) 10^3/uL Baso # (Auto) 0.06 (0.00-0.10) 10^3/uL Macrocytosis 1+ slight Schistocytes ESR (0-20) mm/hr PT (8.9-11.4) SEC INR (0.9-1.1) D-Dimer, Quantitative (<400) ng/mL Sodium 146 H (136-145) mmol/L Potassium 3.9 (3.3-5.3) mmol/L Chloride 107 (98-115) mmol/L Carbon Dioxide 29.1 (21.0-32.0) mmol/L Anion Gap 13.8 (5-15) mmol/L BUN 28 H (6-25) mg/dL Creatinine 1.03 (0.51-1.17) mg/dL Est Cr Clr Drug Dosing 30.25 mL/min Estimated GFR (MDRD) 51 mL/min Glucose 107 H (75 - 99) mg/dL Calcium 9.0 (8.7-10.3) mg/dL Total Bilirubin 0.7 (0.2-1.0) mg/dL AST 23 (15-37) U/L ALT 41 (12-78) U/L Alkaline Phosphatase 98 (46-116) IU/L Troponin I < 0.04 (0.00-0.070) ng/mL C-Reactive Protein 1.3 H (0.0-0.9) mg/dL B-Natriuretic Peptide 933 H (0-100) pg/mL Total Protein 5.1 L (6.4-8.2) g/dL Albumin 2.98 L (3.00-4.80) g/dL 02/09/19 02/09/19 Range/Units 07:15 07:15 WBC (5.00-10.00) 10^3/uL RBC (3.80-5.50) 10^6/uL Hgb (12.0-16.0) g/dL Hct (37.0-47.0) % MCV (82.0-92.0) fL MCH (27.0-31.0) pg MCHC (32.0-36.0) g/dL RDW (11.5-14.5) % Plt Count (150-400) 10^3/uL MPV (7.4-10.4) fL Immature Gran % (Auto) (0.0-5.0) % Neut % (Auto) (50.0-70.0) % Lymph % (Auto) (20.0-40.0) % [place] % (Auto) (2.0-8.0) % Eos % (Auto) (1.0-3.0) % Baso % (Auto) (0.0-1.0) % Immature Gran # (Auto) (0.00-0.50) 10^3/uL Neut # (Auto) (2.50-7.00) 10^3/uL Lymph # (Auto) (1.00-4.00) 10^3/uL [place] # (Auto) (0.10-0.80) 10^3/uL Eos # (Auto) (0.10-0.30) 10^3/uL Baso # (Auto) (0.00-0.10) 10^3/uL Macrocytosis Schistocytes ESR (0-20) mm/hr PT 13.8 H D (8.9-11.4) SEC INR 1.4 H (0.9-1.1) D-Dimer, Quantitative 109 (<400) ng/mL Sodium (136-145) mmol/L Potassium (3.3-5.3) mmol/L Chloride (98-115) mmol/L Carbon Dioxide (21.0-32.0) mmol/L Anion Gap (5-15) mmol/L BUN (6-25) mg/dL Creatinine (0.51-1.17) mg/dL Est Cr Clr Drug Dosing mL/min Estimated GFR (MDRD) mL/min Glucose (75 - 99) mg/dL Calcium (8.7-10.3) mg/dL Total Bilirubin (0.2-1.0) mg/dL AST (15-37) U/L ALT (12-78) U/L Alkaline Phosphatase (46-116) IU/L Troponin I (0.00-0.070) ng/mL C-Reactive Protein (0.0-0.9) mg/dL B-Natriuretic Peptide (0-100) pg/mL Total Protein (6.4-8.2) g/dL Albumin (3.00-4.80) g/dL Result Diagrams: 02/09/19 07:15 02/09/19 07:15 Problem List Initiated/Reviewed/Updated: Yes Orders Last 24hrs: Active Orders 24 hr Category Date Time Status Patient Status [ADT] Routine ADT 02/08/19 15:14 Active Antiembolic Devices [RC] PER UNIT ROUTINE Care 02/09/19 11:02 Ordered EKG Documentation Completion [RC] ASDIRECTED Care 02/09/19 08:15 Active Oxygen Therapy [RC] PRN Care 02/08/19 15:14 Active Up With Assistance [RC] ASDIRECTED Care 02/08/19 15:14 Active VTE/DVT Education [RC] PER UNIT ROUTINE Care 02/08/19 15:14 Active Vital Signs [RC] 0300,0700,1100,1500,1900,2300 Care 02/08/19 15:14 Active 2 Gram Sodium Diet [DIET] Diet 02/08/19 Lunch Active BASIC METABOLIC PANEL,BMP [CHEM] AM Lab 02/10/19 05:11 Ordered Acetaminophen/HYDROcodone [[place] 325-5 MG] Med 02/08/19 18:18 Active 1 tab PO Q6H PRN Albuterol [Proventil Neb Soln] Med 02/08/19 18:18 Active 2.5 mg NEB QID PRN Albuterol [Ventolin HFA] Med 02/08/19 18:18 Active 0 gm INH Q4H PRN Albuterol/Ipratropium [DuoNeb 3.0-0.5 MG/3 ML] Med 02/08/19 18:18 Active 3 ml INH QID PRN Allopurinol [Zyloprim] Med 02/09/19 09:00 Active 200 mg PO DAILY Arformoterol [Brovana] Med 02/08/19 20:00 Active 15 mcg INH BIDRT Baclofen [Lioresal] Med 02/08/19 18:18 Active 5 - 10 mg PO QID PRN Cholecalciferol (Vitamin D3) [Vitamin D3] Med 02/09/19 08:00 Active 25 mcg PO DAILY@0800 Dapsone Med 02/09/19 09:00 Pending 100 mg PO DAILY Docusate Sodium [Colace] Med 02/08/19 21:00 Active 100 mg PO BID Furosemide [Lasix] Med 02/09/19 11:01 Once 20 mg IVPUSH NOW ONE Furosemide [Lasix] Med 02/09/19 09:00 Active 20 mg PO DAILY Iron,Carbonyl/Ascorbic Acid [Vitron-C Tablet] Med 02/08/19 18:30 Pending 1 each PO Q48H Levothyroxine [Synthroid] Med 02/09/19 07:30 Active 100 mcg PO ACBREAKFAST Lidocaine 5% [Lidoderm 5%] Med 02/09/19 09:00 Active 700 mg TOP DAILY Lisinopril [Prinivil] Med 02/09/19 09:00 Active 5 mg PO DAILY Metoprolol Tartrate [Lopressor] Med 02/08/19 21:00 Active 12.5 mg PO BID Nystatin [Mycostatin] Med 02/08/19 21:00 Active 5 ml PO TID Omeprazole Med 02/09/19 07:30 Active 40 mg PO ACBREAKFAST Ondansetron [Zofran ODT] Med 02/08/19 19:45 Active 4 mg PO Q4H PRN Patient's Own Medication [Ptom] Med 02/08/19 18:18 Pending 1 each TOP BID PRN Polyethylene Glycol 3350 [MiraLAX] Med 02/09/19 08:00 Active 17 gm PO DAILY@08 Potassium Chloride [Klor-Con 10] Med 02/09/19 08:00 Active 10 meq PO DAILY@0800 Remove Patch Med 02/08/19 21:00 Active 1 ea TRDERM BEDTIME Roflumilast [Daliresp] Med 02/09/19 09:00 Active 500 mcg PO DAILY Sotalol [Betapace] Med 02/09/19 09:00 Active 120 mg PO DAILY Sulfamethoxazole/Trimethoprim [Septra DS] Med 02/08/19 21:00 Active 1 tab PO BID Tiotropium [Spiriva HandiHaler] Med 02/09/19 09:00 Active 18 mcg INH DAILY Venlafaxine [Effexor XR] Med 02/09/19 09:00 Active 150 mg PO DAILY atorvaSTATin [Lipitor] Med 02/08/19 21:00 Active 40 mg PO BEDTIME predniSONE Med 02/09/19 08:00 Active 10 mg PO WITHBREAKFAST SCD [Sequential Compression Device] [OM.PC] Routine Oth 02/09/19 11:02 Ordered Resuscitation Status Routine Resus Stat 02/08/19 14:00 Ordered EKG 12 Lead [EK] Routine Ther 02/09/19 08:14 Ordered Medication Orders Hydrocodone Bitart/Acetaminophen ([place] 325-5 Mg) 1 tab PO Q6H PRN PRN Reason: Pain Albuterol (Proventil Neb Soln) 2.5 mg NEB QID PRN PRN Reason: Shortness of Breath Last Admin: 02/09/19 08:49 Dose: 2.5 mg Admin: 02/09/19 01:20 Dose: 2.5 mg Albuterol (Ventolin Hfa) 0 gm INH Q4H PRN PRN Reason: Shortness of Breath Albuterol/Ipratropium (Duoneb 3.0-0.5 Mg/3 Ml) 3 ml INH QID PRN PRN Reason: Shortness of Breath Last Admin: 02/09/19 05:58 Dose: 3 ml Allopurinol (Zyloprim) 200 mg PO DAILY MARY ALICE Last Admin: 02/09/19 10:23 Dose: 200 mg Arformoterol Tartrate (Brovana) 15 mcg INH BIDRT [facility] Last Admin: 02/08/19 20:31 Dose: 15 mcg Atorvastatin Calcium (Lipitor) 40 mg PO BEDTIME [facility] Last Admin: 02/08/19 20:30 Dose: 40 mg Baclofen (Lioresal) 5 - 10 mg PO QID PRN PRN Reason: Spasms Cholecalciferol (Vitamin D3) 25 mcg PO DAILY@0800 [facility] Last Admin: 02/09/19 07:46 Dose: 25 mcg Docusate Sodium (Colace) 100 mg PO BID [facility] Last Admin: 02/09/19 10:24 Dose: 100 mg Admin: 02/08/19 20:29 Dose: 100 mg Furosemide (Lasix) 20 mg PO DAILY [facility] Last Admin: 02/09/19 10:33 Dose: Not Given Admin: 02/09/19 07:35 Dose: 20 mg Furosemide (Lasix) 20 mg IVPUSH NOW ONE Stop: 02/09/19 11:02 Levothyroxine Sodium (Synthroid) 100 mcg PO ACBREAKFAST [facility] Last Admin: 02/09/19 06:40 Dose: 100 mcg Lidocaine (Lidoderm 5%) 700 mg TOP DAILY [facility] Last Admin: 02/09/19 10:25 Dose: 700 mg Lisinopril (Prinivil) 5 mg PO DAILY [facility] Last Admin: 02/09/19 10:34 Dose: Not Given Admin: 02/09/19 07:36 Dose: 5 mg Metoprolol Tartrate (Lopressor) 12.5 mg PO BID [facility] Last Admin: 02/09/19 10:34 Dose: Not Given Admin: 02/09/19 07:36 Dose: 12.5 mg Admin: 02/08/19 20:28 Dose: 12.5 mg Miscellaneous Information (Remove Patch) 1 ea TRDERM BEDTIME [facility] Last Admin: 02/08/19 20:34 Dose: Non-Formulary Medication (Dapsone) 100 mg PO DAILY [facility] Non-Formulary Medication (Iron,Carbonyl/Ascorbic Acid [Vitron-C Tablet]) 1 each PO Q48H [facility] Nystatin (Mycostatin) 5 ml PO TID [facility] Last Admin: 02/09/19 10:24 Dose: 5 ml Admin: 02/08/19 20:31 Dose: 5 ml Omeprazole (Omeprazole) 40 mg PO ACBREAKFAST [facility] Last Admin: 02/09/19 06:30 Dose: Admin: 02/09/19 04:10 Dose: 40 mg Ondansetron HCl (Zofran Odt) 4 mg PO Q4H PRN PRN Reason: Nausea Ptom Menthol [ (Biofreeze]) 1 each TOP BID PRN PRN Reason: Pain Polyethylene Glycol (Miralax) 17 gm PO DAILY@08 [facility] Last Admin: 02/09/19 07:40 Dose: 17 gm Potassium Chloride (Klor-Con 10) 10 meq PO DAILY@0800 [facility] Last Admin: 02/09/19 07:44 Dose: Not Given Prednisone (Prednisone) 10 mg PO WITHBREAKFAST [facility] Last Admin: 02/09/19 07:33 Dose: 10 mg Roflumilast (Daliresp) 500 mcg PO DAILY [facility] Last Admin: 02/09/19 10:23 Dose: 500 mcg Sotalol HCl (Betapace) 120 mg PO DAILY [facility] Last Admin: 02/09/19 07:40 Dose: 120 mg Tiotropium [place] (Spiriva Handihaler) 18 mcg INH DAILY [facility] Trimethoprim/Sulfamethoxazole (Septra Ds) 1 tab PO BID [facility] Stop: 02/15/19 21:01 Last Admin: 02/09/19 10:23 Dose: 1 tab Admin: 02/08/19 20:30 Dose: 1 tab Venlafaxine HCl (Effexor Xr) 150 mg PO DAILY [facility] Last Admin: 02/09/19 10:23 Dose: 150 mg Assessment/Plan Comment:: HPI summary: Ms. 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 She was transferred by EMS to the [facility] ED. ED course: She was noted to have mildly elevated neutrophilia compared to baseline (on chronic prednisone) but with otherwise normal/stable labs. She was given one dose of clindamycin in the ED. Given multiple comorbidities and fairly rapid progression of erythema, she was recommended for admission to observation for monitoring and management. Hospitalization problems: # Anterior chest cellulitis # Leukocytosis with neutrophilia: Baseline WBC 10-13 wtih 75-80% neutrophils. Admission WBC 12 with 85% neutrophils. Clinical evidence of cellulitis/erysipelas. Though ED note states bullous appearance, detailed exam is not suggestive of a bullous process. Picture taken in [facility] charting for documentation and skin marker used to valeria area affected. - Obtain CRP and ESR - Repeat CBC in AM - Bactrim DS po BID; switched to this from clindamycin due to lesser risk of C.difficile colitis Chronic, stable medical conditions: # Chronic mixed pulmonary disease / Chronic hypoxic respiratory failure: Stable. Last PFTs 2016 with moderate restriction. Continue baseline oxygen, Brovana Daliresp, tiotropium and prn DuoNebs/albuterol. # CAD / HFpEF / HTN: Asymptomatic. Volume status neutral. BP controlled. Continue metoprolol, lisinopril, and furosemide/KCl. # Atrial fibrillation: Rhythm controlled. Continue sotalol. Anticoagulation currently held for planned upcoming facet injection on 02/12/19. # Hx TAVR: Anticoagulation as above. # Ostomy status: Hx colon resection for multiple adenomas. No clinical concerns. # GERD: Stable. Continue PPI. # Constipation: Stable. Continue PEG and docusate. # Suyapa's granulomatosis: Stable. Continue dapsone and prednisone. # Gout: 12/20/18 uric acid 4.4. Continue allopurinol. # Hypothyroidism: 10/27/18 TSH 2.42. Continue levothyroxine. # HLD: Last lipid panel 06/03/2018. Continue statin. # Iron deficiency anemia: Baseline hemoglobin 9-10. Continue iron-vitamin C. # Macrocytosis: Stable. Recent folate and B12 testing normal. # Osteopenia: Last DEXA 2012. On Prolia, which should continue given ongoing prednisone use. # Chronic back pain / Chronic opiate use: Stable. Continue lidocaine patch, [place] prn and baclofen TID. # Depression: Stable. Continue venlafaxine. Hospitalization details: # FEN: No IVF. Electrolytes normal. Regular diet as tolerated. # PPX: SCDs for DVT ppx; holding warfarin due to upcoming procedure. # Code status: DNR/DNI. # Emergency contact: , who was updated upon arrival by staff. # Disposition: Admit to observation status. Anticipate discharge to [facility] in 1-2 days pending clinical course. - Mortality Measure Prognosis:: Good
[2019-02-09] MEDS: ARFORMOTEROL 15 MCG/2 ML INH SCH (20:02)
[2019-02-09] MEDS: atorvaSTATin 40 MG Tab PO SCH (20:26)
[2019-02-10] MEDS: ALBUTEROL INH PRN ×3 (01:40→10:11)
[2019-02-10] MEDS: IPRATROPIUM INH PRN ×3 (01:40→10:11)
[2019-02-10] MEDS: Levothyroxine 100 MCG Tab PO SCH (06:31)
[2019-02-10 08:12] LABS: ANION GAP 10.6 mmol/L (5-15)
[2019-02-10] MEDS: Polyethylene Glycol 3350 Powder 17 GM Packet PO SCH (08:35)
[2019-02-10] MEDS: Nystatin Susp 100,000 Unit/ML 5 ML UD Cup PO SCH ×3 (08:37→20:30)
[2019-02-10] MEDS: Lisinopril 5 MG Tab PO SCH (08:37)
[2019-02-10] MEDS: Sotalol 80 MG Tab PO SCH (08:37)
[2019-02-10] MEDS: Cholecalciferol (Vitamin D3) 25 MCG Tab PO SCH (08:38)
[2019-02-10] MEDS: Allopurinol 100 MG Tab PO SCH (08:38)
[2019-02-10] MEDS: predniSONE 10 MG Tab PO SCH (08:38)
[2019-02-10] MEDS: Metoprolol Tartrate 25 MG Tab PO SCH ×2 (08:38→20:30)
[2019-02-10] MEDS: Docusate Sodium 100 MG Cap PO SCH ×2 (08:38→20:30)
[2019-02-10] MEDS: Furosemide 20 MG Tab PO SCH (08:39)
[2019-02-10] MEDS: Sulfamethoxazole/Trimethoprim 800-160 MG Tab PO SCH ×2 (08:39→20:30)
[2019-02-10] MEDS: Venlafaxine 150 MG Cap.ER PO SCH (08:39)
[2019-02-10] MEDS: ROFLUMILAST 500 MCG PO SCH (08:40)
[2019-02-10] MEDS: DAPSONE 100 MG PO SCH (08:40)
[2019-02-10] MEDS: Potassium Chloride 10 MEQ Tab.ER PO SCH ×2 (08:40→08:42)
[2019-02-10] MEDS: Lidocaine 5% 700 MG Patch TOP SCH (08:42)
[2019-02-10] MEDS ORDERED: TIOTROPIUM 18 MCG INH SCH (09:00)
[2019-02-10] MEDS ORDERED: VITRON C PO SCH (09:00)
[2019-02-10] MEDS: ARFORMOTEROL 15 MCG/2 ML INH SCH (09:19)
--- NOTE | 2019-02-10 11:07 | PCM.PN ---
- General Info Date of Service: 02/10/19 Functional Status: Reports: Pain Controlled, Tolerating Diet, New Symptoms ( Requiring 5 l O2, some wheezing releived by Albuterol. Speaking short sentences while sitting however does feel better overall. ) - Review of Systems General: Denies: Fever, Weakness, Fatigue, Malaise, Chills, Night Sweats Cardiovascular: Reports: Dyspnea on Exertion. Denies: Chest Pain, Palpitations , Orthopnea, PND, Edema, Lightheadedness Gastrointestinal: Reports: No Symptoms Genitourinary: Reports: No Symptoms Musculoskeletal: Reports: Back Pain Skin: Reports: Rash (rash to anterior chest, improving, receding from borders. ) Neurological: Denies: Confusion, Headache, Syncope, Weakness Psychiatric: Reports: Anxiety - Patient Data Vitals - Most Recent: Last Vital Signs Temp 97.7 F 02/10/19 06:22 Pulse 67 02/10/19 10:12 Resp 20 02/10/19 06:22 BP 151/59 H 02/10/19 08:38 Pulse Ox 96 02/10/19 10:12 Weight - Most Recent: 108 lb 2 oz I&O - Last 24 Hours: Intake & Output 02/09/19 02/10/19 02/10/19 22:59 06:59 14:59 Intake Total 300 150 Output Total 200 200 Balance 100 -50 Lab Results Last 24 Hours: Laboratory Results - last 24 hr 02/10/19 02/10/19 Range/Units 07:20 07:20 PT 11.7 H (8.9-11.4) SEC INR 1.2 H (0.9-1.1) Sodium 143 (136-145) mmol/L Potassium 3.9 (3.3-5.3) mmol/L Chloride 106 (98-115) mmol/L Carbon Dioxide 30.3 (21.0-32.0) mmol/L Anion Gap 10.6 (5-15) mmol/L BUN 25 (6-25) mg/dL Creatinine 1.22 H (0.51-1.17) mg/dL Est Cr Clr Drug Dosing 25.54 mL/min Estimated GFR (MDRD) 42 mL/min Glucose 107 H (75 - 99) mg/dL Calcium 9.7 (8.7-10.3) mg/dL Med Orders - Current: Current Medications Hydrocodone Bitart/Acetaminophen ([place] 325-5 Mg) 1 tab PO Q6H PRN PRN Reason: Pain Albuterol (Proventil Neb Soln) 2.5 mg NEB QID PRN PRN Reason: Shortness of Breath Last Admin: 02/09/19 08:49 Dose: 2.5 mg Albuterol (Ventolin Hfa) 0 gm INH Q4H PRN PRN Reason: Shortness of Breath Allopurinol (Zyloprim) 200 mg PO DAILY [facility] Last Admin: 02/10/19 08:38 Dose: 200 mg Atorvastatin Calcium (Lipitor) 40 mg PO BEDTIME [facility] Last Admin: 02/09/19 20:26 Dose: 40 mg Baclofen (Lioresal) 5 - 10 mg PO QID PRN PRN Reason: Spasms Cholecalciferol (Vitamin D3) 25 mcg PO DAILY@0800 [facility] Last Admin: 02/10/19 08:38 Dose: 25 mcg Docusate Sodium (Colace) 100 mg PO BID [facility] Last Admin: 02/10/19 08:38 Dose: 100 mg Furosemide (Lasix) 20 mg PO DAILY [facility] Last Admin: 02/10/19 08:39 Dose: 20 mg Levothyroxine Sodium (Synthroid) 100 mcg PO ACBREAKFAST [facility] Last Admin: 02/10/19 06:31 Dose: 100 mcg Lidocaine (Lidoderm 5%) 700 mg TOP DAILY [facility] Last Admin: 02/10/19 08:42 Dose: Not Given Lisinopril (Prinivil) 5 mg PO DAILY [facility] Last Admin: 02/10/19 08:37 Dose: 5 mg Metoprolol Tartrate (Lopressor) 12.5 mg PO BID [facility] Last Admin: 02/10/19 08:38 Dose: 12.5 mg Miscellaneous Information (Remove Patch) 1 ea TRDERM BEDTIME [facility] Last Admin: 02/09/19 20:32 Dose: 1 ea Nystatin (Mycostatin) 5 ml PO TID [facility] Last Admin: 02/10/19 08:37 Dose: 5 ml Omeprazole (Omeprazole) 40 mg PO BEDTIME [facility] Last Admin: 02/09/19 20:27 Dose: 40 mg Ondansetron HCl (Zofran Odt) 4 mg PO Q4H PRN PRN Reason: Nausea Ptom Dapsone 100 (Mg) 1 each PO DAILY [facility] Last Admin: 02/10/19 08:40 Dose: 1 each Ptom Vitron-C (Tablet) 1 each PO Q48H [facility] Last Admin: 02/10/19 08:41 Dose: 1 each Ptom Menthol [ (Biofreeze]) 1 each TOP BID PRN PRN Reason: Pain Ptom Arformoterol ( Brovana) 15 Mcg/2 Ml Neb Soln 1 each INH BIDRT [facility] Last Admin: 02/10/19 09:19 Dose: Not Given Ptom Roflumilast (Daliresp) 500 Mcg Tab 1 each PO DAILY [facility] Last Admin: 02/10/19 08:40 Dose: 1 each Ptom Albuterol/Ipratropium 3.0-0.5 Mg/3 Ml Neb Soln 1 each INH QID PRN PRN Reason: Shortness of Breath Last Admin: 02/10/19 10:11 Dose: 1 each Ptom Tiotropium (Spiriva) Inhaler 18 Mcg Inhalation Powder Cap 1 each INH DAILY [facility] Polyethylene Glycol (Miralax) 17 gm PO DAILY@08 [facility] Last Admin: 02/10/19 08:35 Dose: 17 gm Potassium Chloride (Klor-Con 10) 10 meq PO DAILY@0800 [facility] Last Admin: 02/10/19 08:42 Dose: Not Given Prednisone (Prednisone) 10 mg PO WITHBREAKFAST [facility] Last Admin: 02/10/19 08:38 Dose: 10 mg Sotalol HCl (Betapace) 120 mg PO DAILY [facility] Last Admin: 02/10/19 08:37 Dose: 120 mg Trimethoprim/Sulfamethoxazole (Septra Ds) 1 tab PO BID [facility] Stop: 02/15/19 21:01 Last Admin: 02/10/19 08:39 Dose: 1 tab Venlafaxine HCl (Effexor Xr) 150 mg PO DAILY [facility] Last Admin: 02/10/19 08:39 Dose: 150 mg Discontinued Medications Albuterol/Ipratropium (Duoneb 3.0-0.5 Mg/3 Ml) 3 ml INH QID PRN PRN Reason: Shortness of Breath Last Admin: 02/09/19 05:58 Dose: 3 ml Arformoterol Tartrate (Brovana) 15 mcg INH BIDRT [facility] Last Admin: 02/09/19 09:00 Dose: Not Given Clindamycin Phosphate (Cleocin) 900 mg IV ONETIME ONE Stop: 02/08/19 13:55 Last Admin: 02/08/19 14:30 Dose: Not Given Furosemide (Lasix) 20 mg IVPUSH NOW ONE Stop: 02/09/19 11:02 Last Admin: 02/09/19 11:33 Dose: 20 mg Clindamycin Phosphate 900 mg/ (Sodium Chloride) 106 mls @ 159 mls/hr IV NOW ONE Stop: 02/08/19 14:54 Last Admin: 02/08/19 14:23 Dose: 159 mls/hr Lidocaine (Lidoderm 5%) 700 mg TOP DAILY [facility] Omeprazole (Omeprazole) 40 mg PO ACBREAKFAST [facility] Last Admin: 02/09/19 06:30 Dose: Not Given Ptom Tiotropium (Spiriva) Inhaler 18 Mcg Inhalation Powder Cap 18 each INH DAILY [facility] Ptom Tiotropium (Spiriva) Inhaler 18 Mcg Inhalation Powder Cap 1 each INH DAILY [facility] Ptom Albuterol/Ipratropium 3.0-0.5 Mg/3 Ml Neb Soln 3 each INH QID PRN PRN Reason: Shortness of Breath Roflumilast (Daliresp) 500 mcg PO DAILY [facility] Last Admin: 02/09/19 10:23 Dose: 500 mcg Tiotropium [place] (Spiriva Handihaler) 18 mcg INH DAILY [facility] Last Admin: 02/09/19 09:00 Dose: Not Given Comments:: Requiring 5 l O2, some wheezing releived by Albuterol. Speaking short sentences while sitting however does feel better overall - Exam General: Alert, Oriented, Mild Distress Lungs: Clear to Auscultation, Normal Respiratory Effort Cardiovascular: Irregular Rhythm. No: Tachycardia GI/Abdominal Exam: Soft Back Exam: No: CVA Tenderness (L), CVA Tenderness (R) Extremities: No Pedal Edema Peripheral Pulses: 2+: Radial (L) Skin: Other (Rash to anterior chest improving, receding from borders. ) Psy/Mental Status: Anxious - Problem List Review Problem List Initiated/Reviewed/Updated: Yes - Plan Plan:: History summary: Ms. 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 She was transferred by EMS to the [facility] ED. ED course: She was noted to have mildly elevated neutrophilia compared to baseline (on chronic prednisone) but with otherwise normal/stable labs. She was given one dose of clindamycin in the ED. Given multiple comorbidities and fairly rapid progression of erythema, she was recommended for admission to observation for monitoring and management. Hospitalization problems: # Anterior chest cellulitis # Leukocytosis with neutrophilia: Baseline WBC 10-13 wtih 75-80% neutrophils. Admission WBC 12 with 85% neutrophils. Clinical evidence of cellulitis/erysipelas. Though ED note states bullous appearance, detailed exam is not suggestive of a bullous process. Picture taken in [facility] charting for documentation and skin marker used to valeria area affected. - Obtain CRP and ESR - Repeat CBC in AM - Bactrim DS po BID; switched to this from clindamycin due to lesser risk of C.difficile colitis Chronic, stable medical conditions: # Chronic mixed pulmonary disease / Chronic hypoxic respiratory failure: Stable. Last PFTs 2016 with moderate restriction. Continue baseline oxygen, Brovana Daliresp, tiotropium and prn DuoNebs/albuterol. # CAD / HFpEF / HTN: Asymptomatic. Volume status neutral. BP controlled. Continue metoprolol, lisinopril, and furosemide/KCl. # Atrial fibrillation: Rhythm controlled. Continue sotalol. Anticoagulation currently held for planned upcoming facet injection on 02/12/19. # Hx TAVR: Anticoagulation as above. # Ostomy status: Hx colon resection for multiple adenomas. No clinical concerns. # GERD: Stable. Continue PPI. # Constipation: Stable. Continue PEG and docusate. # Suyapa's granulomatosis: Stable. Continue dapsone and prednisone. # Gout: 12/20/18 uric acid 4.4. Continue allopurinol. # Hypothyroidism: 10/27/18 TSH 2.42. Continue levothyroxine. # HLD: Last lipid panel 06/03/2018. Continue statin. # Iron deficiency anemia: Baseline hemoglobin 9-10. Continue iron-vitamin C. # Macrocytosis: Stable. Recent folate and B12 testing normal. # Osteopenia: Last DEXA 2012. On Prolia, which should continue given ongoing prednisone use. # Chronic back pain / Chronic opiate use: Stable. Continue lidocaine patch, [place] prn and baclofen TID. # Depression: Stable. Continue venlafaxine. Hospitalization details: # FEN: No IVF. Electrolytes normal. Regular diet as tolerated. # PPX: SCDs for DVT ppx; Restart warfarin, pending JOS cancelled. # Code status: DNR/DNI. # Emergency contact: , who was updated upon arrival by staff. disposition Overall Plan today --Contintue in OBS status to monitor her CV/Pulm status, improving however very high and early readmission 2/2 to her recent/unanticipated CV pulmonary status. Highly suspect she can be DC in am and do not expect needing inpatient admission as this time. --Hold LABA, Spiriva for now. Schedule DUO nebs. --Restart Coumadin --Attempt to titrate down 02 --Cont Bactrim
[2019-02-10] MEDS: IPRATROPIUM INH SCH ×2 (15:59→22:43)
[2019-02-10] MEDS: ALBUTEROL INH SCH ×2 (15:59→22:43)
[2019-02-10] MEDS ORDERED: Warfarin 2.5 MG Tab PO ONE (18:00)
[2019-02-10] MEDS ORDERED: Warfarin 2.5 MG Tab PO SCH (18:00)
[2019-02-10] MEDS: Omeprazole 20 MG Cap.CR PO SCH (20:29)
[2019-02-10] MEDS: atorvaSTATin 40 MG Tab PO SCH (20:30)
[2019-02-11] MEDS: IPRATROPIUM INH SCH ×2 (04:22→12:21)
[2019-02-11] MEDS: ALBUTEROL INH SCH ×2 (04:22→12:21)
[2019-02-11] MEDS: Levothyroxine 100 MCG Tab PO SCH (06:38)
[2019-02-11] MEDS: Polyethylene Glycol 3350 Powder 17 GM Packet PO SCH (07:41)
[2019-02-11] MEDS: predniSONE 10 MG Tab PO SCH (07:42)
[2019-02-11] MEDS: Cholecalciferol (Vitamin D3) 25 MCG Tab PO SCH (07:42)
[2019-02-11] MEDS: Potassium Chloride 10 MEQ Tab.ER PO SCH (07:48)
[2019-02-11] MEDS: Sotalol 80 MG Tab PO SCH (08:58)
[2019-02-11] MEDS: Docusate Sodium 100 MG Cap PO SCH (09:00)
[2019-02-11] MEDS: Lisinopril 5 MG Tab PO SCH (09:00)
[2019-02-11] MEDS: Furosemide 20 MG Tab PO SCH (09:00)
[2019-02-11] MEDS: Sulfamethoxazole/Trimethoprim 800-160 MG Tab PO SCH (09:00)
[2019-02-11] MEDS: Allopurinol 100 MG Tab PO SCH (09:01)
[2019-02-11] MEDS: Metoprolol Tartrate 25 MG Tab PO SCH (09:02)
[2019-02-11] MEDS: Venlafaxine 150 MG Cap.ER PO SCH (09:02)
[2019-02-11] MEDS: Nystatin Susp 100,000 Unit/ML 5 ML UD Cup PO SCH (09:03)
[2019-02-11] MEDS: ROFLUMILAST 500 MCG PO SCH (09:08)
[2019-02-11] MEDS: DAPSONE 100 MG PO SCH (09:08)
[2019-02-11] MEDS: Lidocaine 5% 700 MG Patch TOP SCH (09:13)
[2019-02-11 09:14] VITALS: BP 155/61; PULSE 66
--- NOTE | 2019-02-11 10:31 | PCM.DCSUM1 ---
Discharge Summary - Hospital Course Diagnosis: Stroke: No - Discharge Data Discharge Date: 02/11/19 Discharge Disposition: Home, W Home Health Agency 06 Condition: Fair - Patient Instructions Diet: Low Sodium (2 gm or less salt per day) Activity: As Tolerated, Cough & Deep Breathe Driving: Do Not Drive Showering/Bathing: May Shower Notify Provider of: Fever Other/Special Instructions: report ANY worsening shortness of breath or rash spreading. - Discharge Plan *PRESCRIPTION DRUG MONITORING PROGRAM REVIEWED*: Not Applicable *COPY OF PRESCRIPTION DRUG MONITORING REPORT IN PATIENT JACKI: Not Applicable Prescriptions/Med Rec: Lisinopril 10 mg PO DAILY #30 tablet Sulfamethoxazole/Trimethoprim [Septra DS] 1 tab PO BID #8 tablet Home Medications: Home Meds Cholecalciferol (Vitamin D3) [Vitamin D3] 1,000 unit PO DAILY@0800 09/27/13 [ History] Albuterol Sulfate [Albuterol Sulfate HFA] 2 puff INH Q4HR PRN 08/28/14 [History] Omeprazole [Prilosec] 40 mg PO BEDTIME 01/20/15 [History] Venlafaxine [Effexor XR] 150 mg PO DAILY 04/12/15 [History] Docusate Sodium [Colace] 100 mg PO BID 06/27/15 [History] Albuterol [Proventil Neb Soln] 2.5 mg NEB QID PRN 02/25/16 [History] Potassium Chloride [K-Tab ER] 10 meq PO DAILY@0800 02/25/16 [History] Dapsone 100 mg PO DAILY 06/19/16 [History] predniSONE [Prednisone] 10 mg PO WITHBREAKFAST 07/17/16 [History] Metoprolol Tartrate 12.5 mg PO BID 11/08/16 [History] Sotalol HCl [Sotalol] 120 mg PO DAILY #30 tablet 11/12/16 [Rx] Ondansetron [Zofran] 4 mg PO Q4H PRN 01/16/17 [History] Roflumilast [Daliresp] 500 mcg PO DAILY #30 tablet 01/20/17 [Rx] Menthol [Biofreeze] 1 applic TOP BID PRN 05/21/17 [History] Polyethylene Glycol 3350 [MiraLAX] 17 gm PO DAILY@08 05/21/17 [History] Furosemide [Lasix] 20 mg PO DAILY 12/09/17 [History] Albuterol/Ipratropium [DuoNeb 3.0-0.5 MG/3 ML] 3 ml INH QID PRN 02/24/18 [ History] Denosumab [Prolia] 60 mg SUBCUT Q180D 02/24/18 [History] Tiotropium [Spiriva HandiHaler] 1 puff INH DAILY 02/24/18 [History] atorvaSTATin [Lipitor] 40 mg PO BEDTIME 02/24/18 [History] Allopurinol [Zyloprim] 200 mg PO DAILY 05/08/18 [History] Hydrocodone/Acetaminophen [Hydrocodon-Acetaminophen 5-325] 1 tab PO Q6H PRN 04/15 [History] Baclofen 5 - 10 mg PO QID PRN 07/11/18 [History] Iron,Carbonyl/Ascorbic Acid [Vitron-C Tablet] 1 each PO Q48H #15 tablet. 07/12 [Rx] Levothyroxine [Synthroid] 100 mcg PO ACBREAKFAST 09/22/18 [History] Arformoterol [Brovana] 15 mcg INH BID 01/04/19 [History] Lidocaine 5% [Lidoderm 5%] 1 patch TOP DAILY 01/04/19 [History] Nystatin [Mycostatin] 5 ml PO TID 01/04/19 [History] Warfarin Sodium 2.5 mg PO ASDIRECTED 02/10/19 [History] Warfarin Sodium [Coumadin] 5 mg PO ASDIRECTED 02/10/19 [History] Lisinopril 10 mg PO DAILY #30 tablet 02/11/19 [Rx] Sulfamethoxazole/Trimethoprim [Septra DS] 1 tab PO BID #8 tablet 02/11/19 [Rx] Oxygen Therapy Mode: Nasal Cannula Referrals: [facility] [Outside] Elvira Armijo MD [Primary Care Provider] - (anytime next week) - Discharge Summary/Plan Comment DC Time >30 min.: Yes Discharge Summary/Plan Comment: Final dx: Cellulitis/erysipelas, ant chest wall Heart Failure exacerbation, diastolic COPD exacerbation History Jordy is 84 years old and was admitted to the ED due to concern of cellulitis. Her family noticed that the patient to have some redness to the anterior chest wall subsequently bringing her to the ED. She was admitted into observation and placed on antibiotics. Patient does have chronic multiple complex medical condition with frequent multiple hospitalizations admissions in the past. Of note she does have chronic obstructive pulmonary disease along with Suyapa granulomatosis and chronic HFpEF. She is on chronic oxygen. EGD findings consisted of slight elevated neutrophilia compared to baseline but with otherwise normal/stable labs. She was given one dose of clindamycin. Hospital course She was started on Bactrim and her rash to her anterior chest wall seem to improve--began to recede from demarcated lines drawn. Shortly after admission the patient started having increased anxiety, shortness of breath requiring frequent doses of NGUYEN which seemed to improve her pulmonary status. She did have increasing elevated BNP and clinical symptoms resolve with diuretics. Patient had been stopped from anticoagulation Coumadin 2 up pending injection so there was concern of possible PE however subsequent d-dimer was negative. She was eventually placed back on her Coumadin as her and her spouse, collaberatlly discussed the futility of future injections in her back, therefore canceled her appointments. She lost approximately 3-5 pounds (varies scales) due to diuresis. She was requiring 5 L of oxygen (2 L above her home baseline) up until 24 hours prior to discharge then titrated down to 4 L. Oxygen saturations maintained 89-93%. She was ambulated around the floor and did fairly well without any increase in shortness of breath. Her LABA and spiriva was hold Medication changes/adjustments upon discharge Bactrim DS 1 by mouth twice a day (totaling 7 days) Lisinopril 10 mg by mouth daily (increased from 5 mg) target 30 mg due to heart failure if tolerable/creatinine Continue back on her home resp meds Disposition This is a [id number] evaluation for the patient to receive physical therapy occupational therapy and halfway health. Please develop in home therapy program as the patient is high risk for readmission due to chronic medical problems such as rest 3 failure COPD, heart failure and debility. Patient is homebound due to her significantly reduced endurance requiring increased levels of home baseline oxygen. Does experience significant short of breath with minimal activities which is below her chronic baseline 3 status. - General Info Date of Service: 02/11/19 Functional Status: Reports: Pain Controlled, Tolerating Diet, Ambulating. Denies: New Symptoms - Review of Systems General: Reports: Weakness Pulmonary: Denies: Shortness of Breath, Sputum, Wheezing Cardiovascular: Reports: Dyspnea on Exertion Gastrointestinal: Reports: No Symptoms Skin: Reports: Rash (improving rash on discharge. ) Neurological: Reports: Pre-Existing Deficit, Weakness - Patient Data Vitals - Most Recent: Last Vital Signs Temp 98.3 F 02/11/19 06:19 Pulse 66 02/11/19 09:02 Resp 20 02/11/19 06:19 BP 155/61 H 02/11/19 09:02 Pulse Ox 89 L 02/11/19 06:19 Weight - Most Recent: 108 lb 2 oz I&O - Last 24 hours: Intake & Output 02/10/19 02/11/19 02/11/19 22:59 06:59 14:59 Intake Total 200 150 Output Total 550 550 Balance -350 -400 Lab Results - Last 24 hrs: Laboratory Results - last 24 hr 02/11/19 Range/Units 07:20 PT TNP INR 1.2 H (0.9-1.1) Med Orders - Current: Current Medications Hydrocodone Bitart/Acetaminophen ([place] 325-5 Mg) 1 tab PO Q6H PRN PRN Reason: Pain Albuterol (Proventil Neb Soln) 2.5 mg NEB QID PRN PRN Reason: Shortness of Breath Last Admin: 02/09/19 08:49 Dose: 2.5 mg Albuterol (Ventolin Hfa) 0 gm INH Q4H PRN PRN Reason: Shortness of Breath Allopurinol (Zyloprim) 200 mg PO DAILY [facility] Last Admin: 02/11/19 09:01 Dose: 200 mg Atorvastatin Calcium (Lipitor) 40 mg PO BEDTIME [facility] [place] Last Admin: 02/10/19 20:30 Dose: 40 mg Baclofen (Lioresal) 5 - 10 mg PO QID PRN PRN Reason: Spasms Cholecalciferol (Vitamin D3) 25 mcg PO DAILY@0800 [facility] [place] Last Admin: 02/11/19 07:42 Dose: 25 mcg Docusate Sodium (Colace) 100 mg PO BID [facility] [place] Last Admin: 02/11/19 09:00 Dose: 100 mg Furosemide (Lasix) 20 mg PO DAILY [facility] [place] Last Admin: 02/11/19 09:00 Dose: 20 mg Levothyroxine Sodium (Synthroid) 100 mcg PO ACBREAKFAST [facility] [place] Last Admin: 02/11/19 06:38 Dose: 100 mcg Lidocaine (Lidoderm 5%) 700 mg TOP DAILY [facility] [place] Last Admin: 02/11/19 09:13 Dose: Not Given Lisinopril (Prinivil) 5 mg PO DAILY [facility] [place] Last Admin: 02/11/19 09:00 Dose: 5 mg Metoprolol Tartrate (Lopressor) 12.5 mg PO BID [facility] Last Admin: 02/11/19 09:02 Dose: 12.5 mg Miscellaneous Information (Remove Patch) 1 ea TRDERM BEDTIME [facility] [place] Last Admin: 02/10/19 20:33 Dose: Not Given Nystatin (Mycostatin) 5 ml PO TID [facility] [place] Last Admin: 02/11/19 09:03 Dose: 5 ml Omeprazole (Omeprazole) 40 mg PO BEDTIME [facility] Last Admin: 02/10/19 20:29 Dose: 40 mg Ondansetron HCl (Zofran Odt) 4 mg PO Q4H PRN PRN Reason: Nausea Ptom Dapsone 100 (Mg) 1 each PO DAILY [facility] Last Admin: 02/11/19 09:08 Dose: 1 each Ptom Vitron-C (Tablet) 1 each PO Q48H [facility] [place] Last Admin: 02/10/19 08:41 Dose: 1 each Ptom Menthol [ (Biofreeze]) 1 each TOP BID PRN PRN Reason: Pain Ptom Arformoterol ( Brovana) 15 Mcg/2 Ml Neb Soln 1 each INH BIDRT [facility] [place] Last Admin: 02/10/19 09:19 Dose: Not Given Ptom Roflumilast (Daliresp) 500 Mcg Tab 1 each PO DAILY [facility] [place] Last Admin: 02/11/19 09:08 Dose: 1 each Ptom Tiotropium (Spiriva) Inhaler 18 Mcg Inhalation Powder Cap 1 each INH DAILY [facility] [place] Last Admin: 02/10/19 09:30 Dose: Not Given Ptom Albuterol/Ipratropium 3.0-0.5 Mg/3 Ml Neb Soln 1 each INH QIDRT [facility] [place] Last Admin: 02/11/19 04:22 Dose: 1 each Polyethylene Glycol (Miralax) 17 gm PO DAILY@08 [facility] [place] Last Admin: 02/11/19 07:41 Dose: 17 gm Potassium Chloride (Klor-Con 10) 10 meq PO DAILY@0800 [facility] [place] Last Admin: 02/11/19 07:48 Dose: Not Given Prednisone (Prednisone) 10 mg PO WITHBREAKFAST [facility] [place] Last Admin: 02/11/19 07:42 Dose: 10 mg Sotalol HCl (Betapace) 120 mg PO DAILY [facility] [place] Last Admin: 02/11/19 08:58 Dose: 120 mg Trimethoprim/Sulfamethoxazole (Septra Ds) 1 tab PO BID [facility] Stop: 02/15/19 21:01 Last Admin: 02/11/19 09:00 Dose: 1 tab Venlafaxine HCl (Effexor Xr) 150 mg PO DAILY [facility] [place] Last Admin: 02/11/19 09:02 Dose: 150 mg Warfarin Sodium (Pharmacy To Dose - Warfarin) 1 dose PO ASDIRECTED [facility] [place] Warfarin Sodium (Coumadin) 5 mg PO MOWEFR@1800 [facility] [place] Warfarin Sodium (Coumadin) 2.5 mg PO SUTUTHSA@1800 [facility] [place] Last Admin: 02/10/19 17:29 Dose: 2.5 mg Discontinued Medications Albuterol/Ipratropium (Duoneb 3.0-0.5 Mg/3 Ml) 3 ml INH QID PRN PRN Reason: Shortness of Breath Last Admin: 02/09/19 05:58 Dose: 3 ml Arformoterol Tartrate (Brovana) 15 mcg INH BIDRT [facility] [place] Last Admin: 02/09/19 09:00 Dose: Not Given Clindamycin Phosphate (Cleocin) 900 mg IV ONETIME ONE Stop: 02/08/19 13:55 Last Admin: 02/08/19 14:30 Dose: Not Given Furosemide (Lasix) 20 mg IVPUSH NOW ONE Stop: 02/09/19 11:02 Last Admin: 02/09/19 11:33 Dose: 20 mg Clindamycin Phosphate 900 mg/ (Sodium Chloride) 106 mls @ 159 mls/hr IV NOW ONE Stop: 02/08/19 14:54 Last Admin: 02/08/19 14:23 Dose: 159 mls/hr Lidocaine (Lidoderm 5%) 700 mg TOP DAILY [facility] Omeprazole (Omeprazole) 40 mg PO ACBREAKFAST [facility] [place] Last Admin: 02/09/19 06:30 Dose: Not Given Ptom Tiotropium (Spiriva) Inhaler 18 Mcg Inhalation Powder Cap 18 each INH DAILY [facility] Ptom Tiotropium (Spiriva) Inhaler 18 Mcg Inhalation Powder Cap 1 each INH DAILY [facility] Ptom Albuterol/Ipratropium 3.0-0.5 Mg/3 Ml Neb Soln 3 each INH QID PRN PRN Reason: Shortness of Breath Ptom Albuterol/Ipratropium 3.0-0.5 Mg/3 Ml Neb Soln 1 each INH QID PRN PRN Reason: Shortness of Breath Last Admin: 02/10/19 10:11 Dose: 1 each Roflumilast (Daliresp) 500 mcg PO DAILY [facility] [place] Last Admin: 02/09/19 10:23 Dose: 500 mcg Tiotropium [place] (Spiriva Handihaler) 18 mcg INH DAILY [facility] Last Admin: 02/09/19 09:00 Dose: Not Given Warfarin Sodium (Coumadin) 2.5 mg PO ONETIME ONE Stop: 02/10/19 18:01 Last Admin: 02/10/19 17:29 Dose: 2.5 mg - Exam Quality Assessment: Reports: Supplemental Oxygen General: Reports: Alert, Oriented, Cooperative, No Acute Distress Neck: Reports: Supple Lungs: Reports: Decreased Breath Sounds Cardiovascular: Reports: Irregular Rhythm (Female) Exam: Deferred Back Exam: Denies: CVA Tenderness (L) Extremities: No Pedal Edema Psy/Mental Status: Denies: Anxious
[2019-02-11] MEDS ORDERED: Warfarin 5 MG Tab PO SCH (18:00)
== END 2019-02-11 11:38 | disposition home health service (06) ==
LOC: KA.ED 12:06 → KA.MS 13:59
PROVIDERS: ADMIT Physician Assistant Medical; ATTEND Family Medicine
DX: L03.313 Cellulitis of chest wall (principal); J44.1 Chronic obstructive pulmonary disease with (acute) exacerbation; J96.20 Acute and chronic respiratory failure, unspecified whether with hypoxia or hypercapnia; I13.0 Hypertensive heart and chronic kidney disease with heart failure and stage 1 through stage 4 chronic kidney disease, or unspecified chronic kidney disease; E11.22 Type 2 diabetes mellitus with diabetic chronic kidney disease; I50.33 Acute on chronic diastolic (congestive) heart failure; N18.9 Chronic kidney disease, unspecified; I25.10 Atherosclerotic heart disease of native coronary artery without angina pectoris; I48.91 Unspecified atrial fibrillation; I25.2 Old myocardial infarction; E78.00 Pure hypercholesterolemia, unspecified; E03.9 Hypothyroidism, unspecified; K21.9 Gastro-esophageal reflux disease without esophagitis; K59.00 Constipation, unspecified; D50.9 Iron deficiency anemia, unspecified; F32.9 Major depressive disorder, single episode, unspecified; G89.29 Other chronic pain; M54.9 Dorsalgia, unspecified; M31.30 Wegener's granulomatosis without renal involvement; M10.9 Gout, unspecified; M85.80 Other specified disorders of bone density and structure, unspecified site; Z88.0 Allergy status to penicillin; Z88.6 Allergy status to analgesic agent; Z88.8 Allergy status to other drugs, medicaments and biological substances; Z88.1 Allergy status to other antibiotic agents; Z91.041 Radiographic dye allergy status; Z99.81 Dependence on supplemental oxygen; Z66 Do not resuscitate; Z95.2 Presence of prosthetic heart valve; Z87.891 Personal history of nicotine dependence; Z79.52 Long term (current) use of systemic steroids; Z79.01 Long term (current) use of anticoagulants; Z79.899 Other long term (current) drug therapy
CPT/HCPCS: 36415; 36416; 71045; 80048; 80053; 83880; 84484; 85025; 85379; 85610; 85651; 86140; 94640; 99284; A9270; J1940; J3490; J7050; 93005; 96365; 96375; G0378; J7613-GY; J7620-GY

== ENCOUNTER 2019-06-12 11:27 | Inpatient (IN) | payer MEDICARE, BC ==
--- NOTE | 2019-06-12 12:43 | EDM.PDOC ---
ED HPI GENERAL MEDICAL PROBLEM - General Chief Complaint: General Stated Complaint: SHORT OF BREATH,ABDOMEN PAIN Time Seen by Provider: 06/12/19 12:13 Source of Information: Reports: Patient, Family () History Limitations: Reports: No Limitations - History of Present Illness INITIAL COMMENTS - FREE TEXT/NARRATIVE: Patient is an 84-year-old female who presents to the emergency department via EMS secondary to a complaint of shortness of breath and right lower extremity pain. Per , patient's oxygen saturation has been dropping and he had to increase her oxygen at home today. Patient also complains of right calf pain. She denies any fall or injury. Patient currently denies chest pain, fever, nausea, vomiting, diarrhea, abdominal pain, dysuria, syncope or near syncope, or swelling of lower extremities. Onset: Gradual Duration: Day(s): Location: Reports: Lower Extremity, Right Quality: Reports: Ache Severity: Mild Improves with: Reports: None Worsens with: Reports: None Context: Denies: Trauma Associated Symptoms: Reports: Shortness of Breath. Denies: Chest Pain, Cough, Diaphoresis, Fever/Chills, Nausea/Vomiting - Related Data Allergies Allergy/AdvReac Type Severity Reaction Status Date / Time penicillamine Allergy Severe Anaphylactic Verified 06/12/19 11:54 Shock Penicillins Allergy Severe Anaphylactic Verified 06/12/19 11:54 Shock Cephalosporins Allergy Unknown Cannot Verified 06/12/19 11:54 Remember aspirin Allergy Other Verified 06/12/19 11:54 Carbapenems Allergy Cannot Verified 06/12/19 11:54 Remember divalproex sodium Allergy Delusions Verified 06/12/19 11:54 [facility] imipenem Allergy Cannot Verified 06/12/19 11:54 Remember Iodinated Contrast Media Allergy Chest Pain Verified 06/12/19 11:54 valproic acid Allergy Confusion Verified 06/12/19 11:54 Home Meds: Home Meds Cholecalciferol (Vitamin D3) [Vitamin D3] 1,000 unit PO DAILY@0800 09/27/13 [ History] Albuterol Sulfate [Albuterol Sulfate HFA] 2 puff INH Q4HR PRN 08/28/14 [History] Omeprazole [Prilosec] 40 mg PO BEDTIME 01/20/15 [History] Venlafaxine [Effexor XR] 150 mg PO DAILY 04/12/15 [History] Docusate Sodium [Colace] 100 mg PO BID 06/27/15 [History] Albuterol [Proventil Neb Soln] 2.5 mg NEB QID PRN 02/25/16 [History] Potassium Chloride [K-Tab ER] 10 meq PO DAILY@0800 02/25/16 [History] Dapsone 100 mg PO DAILY 06/19/16 [History] predniSONE [Prednisone] 10 mg PO WITHBREAKFAST 07/17/16 [History] Metoprolol Tartrate 12.5 mg PO BID 11/08/16 [History] Sotalol HCl [Sotalol] 120 mg PO DAILY #30 tablet 11/12/16 [Rx] Ondansetron [Zofran] 4 mg PO Q4H PRN 01/16/17 [History] Roflumilast [Daliresp] 500 mcg PO DAILY #30 tablet 01/20/17 [Rx] Menthol [Biofreeze] 1 applic TOP BID PRN 05/21/17 [History] Polyethylene Glycol 3350 [MiraLAX] 17 gm PO DAILY@08 05/21/17 [History] Furosemide [Lasix] 20 mg PO DAILY 12/09/17 [History] Albuterol/Ipratropium [DuoNeb 3.0-0.5 MG/3 ML] 3 ml INH QID PRN 02/24/18 [ History] Denosumab [Prolia] 60 mg SUBCUT Q180D 02/24/18 [History] Tiotropium [Spiriva HandiHaler] 1 puff INH DAILY 02/24/18 [History] atorvaSTATin [Lipitor] 40 mg PO BEDTIME 02/24/18 [History] Allopurinol [Zyloprim] 200 mg PO DAILY 05/08/18 [History] Hydrocodone/Acetaminophen [Hydrocodon-Acetaminophen 5-325] 1 tab PO Q6H PRN 04/15 [History] Baclofen 5 - 10 mg PO QID PRN 07/11/18 [History] Iron,Carbonyl/Ascorbic Acid [Vitron-C Tablet] 1 each PO Q48H #15 tablet. 07/12 [Rx] Levothyroxine [Synthroid] 100 mcg PO ACBREAKFAST 09/22/18 [History] Arformoterol [Brovana] 15 mcg INH BID 01/04/19 [History] Lidocaine 5% [Lidoderm 5%] 1 patch TOP DAILY 01/04/19 [History] Nystatin [Mycostatin] 5 ml PO TID 01/04/19 [History] Warfarin Sodium 2.5 mg PO ASDIRECTED 02/10/19 [History] Warfarin Sodium [Coumadin] 5 mg PO ASDIRECTED 02/10/19 [History] Lisinopril 10 mg PO DAILY #30 tablet 02/11/19 [Rx] Sulfamethoxazole/Trimethoprim [Septra DS] 1 tab PO BID #8 tablet 02/11/19 [Rx] Past Medical History HEENT History: Reports: Hard of Hearing, Impaired Vision Cardiovascular History: Reports: Afib, Heart Failure, Heart Valve Replacement, High Cholesterol, Hypertension, MD, SOB on Exertion, Other (See Below) Other Cardiovascular History: mitral stenosis,aortic stenosis,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,vasculitis Respiratory History: Reports: COPD, Pneumonia, Recurrent, SOB, Other (See Below) Other Respiratory History: pleural effusions, on home oxygen 3L at rest & 4L with activity Gastrointestinal History: Reports: Bowel Obstruction, Diverticulosis, GERD, Other (See Below) Other Gastrointestinal History: GI bleed Genitourinary History: Reports: Chronic Renal Insuffiency, Renal Disease, Other (See Below) Other Genitourinary History: acquired cyst of kidney 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, live term births Musculoskeletal History: Reports: Arthritis, Back Pain, Chronic, Osteoporosis, Other (See Below) Other Musculoskeletal History: compression fracture of thoracolumbar vertebra Neurological History: Reports: Migraines Other Neuro History: new onset confusion starting 06/18/2016 Psychiatric History: Reports: Depression Endocrine/Metabolic History: Reports: Diabetes, Type II, Hypothyroidism, Osteoporosis Hematologic History: Reports: Anemia, Blood Transfusion(s) Immunologic History: Reports: Other (See Below) Other Immunologic History: chronic steroid use Oncologic (Cancer) History: Reports: Breast, Colon Dermatologic History: Reports: Venous Stasis Dermatitis, Other (See Below) Other Dermatologic History: discolored skin from chronic steroid use - Infectious Disease History Infectious Disease History: Reports: Chicken Pox, Measles, Mumps, Rheumatic Fever - Past Surgical History Head Surgeries/Procedures: Reports: None HEENT Surgical History: Reports: Cataract Surgery Cardiovascular Surgical History: Reports: Valve Replacement Respiratory Surgical History: Reports: Thoracentesis GI Surgical History: Reports: Colonoscopy, Colostomy, EGD Female Surgical History: Reports: Breast Biopsy, Mastectomy Endocrine Surgical History: Reports: None Neurological Surgical History: Reports: Laminectomy Musculoskeletal Surgical History: Reports: Other (See Below) Other Musculoskeletal Surgeries/Procedures:: spinal injections, laminectomy Oncologic Surgical History: Reports: Mastectomy Dermatological Surgical History: Reports: None Social & Family History - Family History Family Medical History: Noncontributory HEENT: Reports: None Cardiac: Reports: None Respiratory: Reports: None GI: Reports: None : Reports: None OBGYN: Reports: None Musculoskeletal: Reports: None Neurological: Reports: None Psychiatric: Reports: None Endocrine/Metabolic: Reports: None Hematologic: Reports: None Immunologic: Reports: None Dermatologic: Reports: None Oncologic: Reports: Colon, Pancreatic Other Oncologic Family History: parents had ca - Tobacco Use Smoking Status *Q: Former Smoker Used Tobacco, but Quit: Yes Month/Year Tobacco Last Used: 2012 - Caffeine Use Caffeine Use: Reports: Coffee - Recreational Drug Use Recreational Drug Use: No - Living Situation & Occupation Living situation: Reports: Occupation: Retired ED ROS GENERAL - Review of Systems Review Of Systems: Comprehensive ROS is negative, except as noted in HPI. Constitutional: Reports: No Symptoms HEENT: Reports: No Symptoms Respiratory: Reports: Shortness of Breath Cardiovascular: Reports: No Symptoms Endocrine: Reports: No Symptoms GI/Abdominal: Reports: No Symptoms : Reports: No Symptoms Musculoskeletal: Reports: Leg Pain (Right calf) Skin: Reports: No Symptoms Neurological: Reports: No Symptoms Psychiatric: Reports: No Symptoms Hematologic/Lymphatic: Reports: No Symptoms Immunologic: Reports: No Symptoms ED EXAM, GENERAL - Physical Exam Exam: See Below Exam Limited By: No Limitations General Appearance: Alert, WD/WN, No Apparent Distress Eye Exam: Bilateral Eye: Normal Inspection Nose: Normal Inspection, Normal Mucosa, No Blood Throat/Mouth: Normal Inspection, Normal Oropharynx, No Airway Compromise Head: Atraumatic, Normocephalic Neck: Normal Inspection, Supple, Non-Tender Respiratory/Chest: No Respiratory Distress, Lungs Clear, Decreased Breath Sounds (Throughout), Rales (Bibasilar) Cardiovascular: Regular Rate, Rhythm, Systolic Murmur GI/Abdominal: Normal Bowel Sounds, Soft, Non-Tender, No Organomegaly, No Distention, No Abnormal Bruit, No Mass Back Exam: Normal Inspection. No: CVA Tenderness (L), CVA Tenderness (R) Extremities: Normal Inspection, No Pedal Edema, Other (Bilateral lower extremities without edema. Right calf mammal tenderness on palpation. No edema , cord, or erythema noted) Psychiatric: Normal Affect, Normal Mood Skin Exam: Warm, Dry, Intact, Normal Color, No Rash Lymphatic: No Adenopathy Course - Vital Signs Last Recorded V/S: Last Vital Signs Temp 97.1 F 06/12/19 11:50 Pulse 102 H 06/12/19 12:00 Resp 29 H 06/12/19 12:00 BP 105/39 L 06/12/19 12:00 Pulse Ox 95 06/12/19 12:00 - Orders/Labs/Meds Orders: Active Orders 24 hr Category Date Time Status Patient Status [ADT] Routine ADT 06/12/19 13:30 Ordered Oxygen Therapy [RC] PRN Care 06/12/19 13:30 Ordered Peripheral IV Care [RC] . DIRECTED Care 06/12/19 12:15 Ordered VTE/DVT Education [RC] PER UNIT ROUTINE Care 06/12/19 13:30 Ordered Vital Signs [RC] Q4H Care 06/12/19 13:30 Ordered Sodium Chloride 0.9% [Saline Flush] Med 06/12/19 12:15 Ordered 10 ml FLUSH Q8HR PRN Peripheral IV Insertion Adult [OM.PC] Routine Oth 06/12/19 12:15 Ordered Resuscitation Status Routine Resus Stat 06/12/19 13:29 Ordered Medication Orders Sodium Chloride (Saline Flush) 10 ml FLUSH Q8HR PRN PRN Reason: keep vein open Labs: Laboratory Tests 06/12/19 06/12/19 06/12/19 Range/Units 12:24 12:24 12:24 WBC 17.77 H (5.00-10.00) 10^3/uL RBC 2.80 L (3.80-5.50) 10^6/uL Hgb 9.4 L (12.0-16.0) g/dL Hct 31.1 L (37.0-47.0) % MCV 111.1 H (82.0-92.0) fL MCH 33.6 H (27.0-31.0) pg MCHC 30.2 L (32.0-36.0) g/dL RDW 17.6 H (11.5-14.5) % Plt Count 165 (150-400) 10^3/uL MPV 11.2 H (7.4-10.4) fL Add Manual Diff Yes Neutrophils % (Manual) 84 H (50-70) % Band Neutrophils % 14 H (4-12) % Lymphocytes % (Manual) 2 L (20-40) % Absolute Neutrophils 14.93 Band Neutrophils # 2.49 Lymphocytes # (Manual) 0.36 D-Dimer, Quantitative 456 H (<400) ng/mL Sodium 145 (136-145) mmol/L Potassium 3.8 (3.3-5.3) mmol/L Chloride 108 (98-115) mmol/L Carbon Dioxide 27.9 (21.0-32.0) mmol/L Anion Gap 12.9 (5-15) mmol/L BUN 23 (6-25) mg/dL Creatinine 1.11 (0.51-1.17) mg/dL Est Cr Clr Drug Dosing 28.07 mL/min Estimated GFR (MDRD) 47 mL/min Glucose 115 H (75 - 99) mg/dL Calcium 9.5 (8.7-10.3) mg/dL Total Bilirubin 1.1 H (0.2-1.0) mg/dL AST 19 (15-37) U/L ALT 18 (12-78) U/L Alkaline Phosphatase 108 (46-116) IU/L B-Natriuretic Peptide 797 H (0-100) pg/mL Total Protein 5.3 L (6.4-8.2) g/dL Albumin 2.90 L (3.00-4.80) g/dL Meds: Medications Generic Name Dose Route Start Last Admin Trade Name Freq PRN Reason Stop Dose Admin Sodium Chloride 10 ml 06/12/19 12:15 Saline Flush FLUSH Q8HR PRN keep vein open Discontinued Medications Generic Name Dose Route Start Last Admin Trade Name Freq PRN Reason Stop Dose Admin Furosemide 20 mg 06/12/19 13:26 Lasix IVPUSH 06/12/19 13:27 NOW ONE - Radiology Interpretation Free Text/Narrative:: Chest x-ray shows perihilar vascular congestion suggestive of CHF laceration - Re-Assessments/Exams Free Text/Narrative Re-Assessment/Exam: 06/12/19 13:35 Patient afebrile, vital signs stable, oxygen saturation 93% on nonrebreather. Discussed case with Andry Tom provider. Patient will be admitted for observation and followed Departure - Departure Time of Disposition: 13:36 Disposition: Refer to Observation Condition: Poor Clinical Impression: CHF, Congestive heart failure, Hypoxemia - Discharge Information Referrals: Solomon Strong PA-C [Primary Care Provider] - Forms: ED Department Discharge Sepsis Event Note - Evaluation Sepsis Screening Result: No Definite Risk - Focused Exam Vital Signs: Vital Signs Temp Pulse Resp BP Pulse Ox 06/12/19 12:00 102 H 29 H 105/39 L 95 06/12/19 11:50 97.1 F 102 H 31 H 134/41 L 93 L Date Exam was Performed: 06/12/19 Time Exam was Performed: 13:36 - My Orders Last 24 Hours: My Active Orders 06/12/19 12:15 Peripheral IV Care [RC] . DIRECTED Sodium Chloride 0.9% [Saline Flush] 10 ml FLUSH Q8HR PRN Peripheral IV Insertion Adult [OM.PC] Routine 06/12/19 13:29 Resuscitation Status Routine 06/12/19 13:30 Patient Status [ADT] Routine Oxygen Therapy [RC] PRN VTE/DVT Education [RC] PER UNIT ROUTINE Vital Signs [RC] Q4H - Assessment/Plan Last 24 Hours: My Active Orders 06/12/19 12:15 Peripheral IV Care [RC] . DIRECTED Sodium Chloride 0.9% [Saline Flush] 10 ml FLUSH Q8HR PRN Peripheral IV Insertion Adult [OM.PC] Routine 06/12/19 13:29 Resuscitation Status Routine 06/12/19 13:30 Patient Status [ADT] Routine Oxygen Therapy [RC] PRN VTE/DVT Education [RC] PER UNIT ROUTINE Vital Signs [RC] Q4H Assessment:: CHF Plan: Admit observation
[2019-06-12 12:49] LABS: ANION GAP 12.9 mmol/L (5-15)
--- NOTE | 2019-06-12 13:11 | CR ---
[id number] RAD/RAD Chest PA And Lateral EXAM: RAD Chest PA And Lateral INDICATION: SHORTNESS OF BREATH. COMPARISON: February 09, 2019. DISCUSSION: Heart valve replacement. Cardiomediastinal silhouette is enlarged. Pulmonary vascular congestion with patchy airspace opacifications bilaterally. Left basilar pulmonary. Small left pleural effusion. Multiple prior kyphoplasty. IMPRESSION: Findings suggestive of congestive heart failure exacerbation. Marlon Berry DO 06/12/19 [phone] Thank you for allowing us to participate in the care of your patient.
[2019-06-12] MEDS ORDERED: Furosemide 40 MG/4 ML VIAL IVPUSH ONE (13:26)
[2019-06-12] MEDS: Sodium Chloride 0.9% 10 ML Syringe FLUSH PRN (13:42)
[2019-06-12] MEDS ORDERED: Albuterol 8 GM Inhaler INH PRN (14:39)
[2019-06-12] MEDS ORDERED: Albuterol 0.083% 2.5 MG/3 ML Neb Soln NEB PRN (14:39)
[2019-06-12] MEDS ORDERED: Ondansetron 4 MG Tab.DIS PO PRN (14:39)
[2019-06-12] MEDS ORDERED: MENTHOL TOP PRN (14:39)
[2019-06-12] MEDS ORDERED: Lidocaine/Prilocaine 2.5-2.5% Crm 30 GM Tube TOP PRN (14:45)
[2019-06-12] MEDS ORDERED: Adenosine 6 MG/2 ML SDV IVPUSH ONE ×3 (16:30→16:38)
[2019-06-12] MEDS ORDERED: Adenosine 12 MG/4 ML SDV IVPUSH ONE ×2 (16:30→16:38)
[2019-06-12] MEDS ORDERED: Amiodarone 150 MG/3 ML SDV IV ONE (16:50)
[2019-06-12 17:41] LABS: ANION GAP 15.5 mmol/L (5-15)
[2019-06-12] MEDS: Omeprazole 20 MG Cap.CR PO SCH (18:32)
[2019-06-12] MEDS: Acetaminophen/HYDROcodone 325-5 MG Tab PO PRN (19:11)
[2019-06-12] MEDS: Arformoterol 15 MCG/2 ML Neb Soln INH SCH (20:31)
[2019-06-12] MEDS: Docusate Sodium 100 MG Cap PO SCH (20:32)
[2019-06-12] MEDS: Potassium Chloride 10 MEQ Tab.ER PO SCH (20:33)
[2019-06-12] MEDS: atorvaSTATin 40 MG Tab PO SCH (20:33)
[2019-06-12] MEDS: Baclofen 10 MG Tab PO SCH (20:34)
[2019-06-12] MEDS: Metoprolol Tartrate 25 MG Tab PO SCH (20:35)
[2019-06-13] MEDS ORDERED: Acetaminophen 325 MG Tab ONE (03:46)
[2019-06-13] MEDS: Acetaminophen 325 MG Tab PO PRN (03:57)
[2019-06-13] MEDS: Morphine 2 MG/ML Syringe IVPUSH PRN (03:58)
[2019-06-13] MEDS: cefTRIAXone 1 GM Vial IVPUSH SCH (04:32)
[2019-06-13] MEDS: Arformoterol 15 MCG/2 ML Neb Soln INH SCH ×2 (07:54→20:45)
[2019-06-13] MEDS: Cholecalciferol (Vitamin D3) 25 MCG Tab PO SCH (08:10)
[2019-06-13] MEDS: Omeprazole 20 MG Cap.CR PO SCH ×2 (08:10→17:09)
[2019-06-13] MEDS: Polyethylene Glycol 3350 Powder 17 GM Packet PO SCH (08:10)
[2019-06-13] MEDS: Levothyroxine 100 MCG Tab PO SCH (08:11)
[2019-06-13] MEDS: Roflumilast 500 MCG Tab PO SCH (08:47)
[2019-06-13] MEDS: Allopurinol 100 MG Tab PO SCH (08:47)
[2019-06-13] MEDS: Furosemide 20 MG Tab PO SCH ×2 (08:48→11:47)
[2019-06-13] MEDS: Baclofen 10 MG Tab PO SCH ×3 (08:48→20:17)
[2019-06-13] MEDS: Docusate Sodium 100 MG Cap PO SCH ×2 (08:48→20:16)
[2019-06-13] MEDS: Venlafaxine 150 MG Cap.ER PO SCH (08:49)
[2019-06-13] MEDS: predniSONE 10 MG Tab PO SCH (08:49)
[2019-06-13] MEDS: Metoprolol Tartrate 25 MG Tab PO SCH ×2 (08:49→20:18)
[2019-06-13] MEDS: Potassium Chloride 10 MEQ Tab.ER PO SCH ×3 (08:49→20:41)
[2019-06-13] MEDS: REVEFENACIN 175 MCG/3 ML NEB SCH (09:01)
[2019-06-13] MEDS: DAPSONE 100 MG PO SCH (09:56)
[2019-06-13] MEDS: Acetaminophen/HYDROcodone 325-5 MG Tab PO PRN (11:42)
[2019-06-13] MEDS ORDERED: metroNIDAZOLE 500 MG Tab PO SCH (11:45)
[2019-06-13] MEDS: Amiodarone 200 MG Tab PO SCH ×2 (11:46→20:16)
--- NOTE | 2019-06-13 13:32 | HP ---
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 She is on home oxygen. She is seen at [facility] for her Suyapa's. The patient was at the assisted living and the nursing staff there had noticed that her oxygen saturations were in the low 80s where they usually are in the high 80s to low 90s. She was at 80% on 3 L nasal cannula at the assisted living. She also complained of right lower leg pain, so at that time, the patient was brought to the emergency room for further evaluation and treatment. The patient's white count was elevated at 17. Emergency room chest x-ray was unremarkable. The patient's oxygen saturations though were low on 3 L at anywhere from 80-82%. They placed her on a non- rebreather at 6 L and her oxygen saturations were up to about 90%. At that time, the patient was admitted with hypoxemia. PAST MEDICAL HISTORY: The patient has a past medical history of depression, GERD, hypothyroidism, muscle aches, hyperlipidemia, gout, severe congestive heart failure, advanced lung disease with Suyapa's disease, history of atrial fibrillation. MEDICATIONS: Medications that she was taking at home; she was on baclofen 2.5 mg three times a day, vitamin D3 of 1000 units daily, prednisone 10 mg daily, Effexor XR 150 mg daily, Daliresp 500 mcg daily, MiraLAX daily, Zofran as needed, Lasix 20 mg daily. Also, Lasix every Thursday, Thursday, and Thursday, 20 mg extra, levothyroxine 100 mcg daily, Colace 100 mg twice daily, dapsone 100 mg daily, Lipitor 40 mg daily, Brovana inhaled nebulizer twice daily, potassium chloride 10 mEq twice a day, allopurinol 200 mg daily, albuterol inhalers and nebulizers both as needed, Prilosec 40 mg twice a day, metoprolol tartrate 12.5 mg twice a day, hydrocodone 5/325 one tablet twice daily as needed, and Yupelri nebulizer once daily. ALLERGIES: The patient is allergic to penicillin, cephalosporins, aspirin, carbapenems, Depakote, contrast dye, valproic acid. SOCIAL PERSONAL AND HISTORY: The patient lives with her in assisted living. She used to smoke years ago, but no alcohol or tobacco use new. REVIEW OF SYSTEMS: CONSTITUTIONAL: No weight loss. No fever. No chills. No night sweats. Appetite is good. No fatigue. EYES: No recent visual changes. ENT: No sinus congestion or hoarseness. CARDIOVASCULAR: No chest pain or palpitations. RESPIRATORY: No cough. No shortness of breath. GI: No vomiting, diarrhea or melena. : No dysuria or hematuria. MUSCULOSKELETAL: The patient complains of her entire right leg being very tender and sore, painful. INTEGUMENTARY: No rash or pruritus. NEUROLOGIC/PSYCHIATRIC: No recent headache or focal weakness. No depressive symptoms. ENDOCRINE: No heat or cold intolerances or polydipsia. HEMATOLOGIC/LYMPHATIC: No excessive bruising or lymph node swelling. ALLERGIC/IMMUNOLOGIC: No hives or recurrent infections. PHYSICAL EXAMINATION: GENERAL: This is a very ill-appearing white female, in no acute distress. VITAL SIGNS: Today now, temperature is 99.2, pulse is 74, blood pressure is 144/45, oxygen saturation 99% on 2 L nasal cannula. HEENT: Normocephalic. Bilateral tympanic membranes are intact. EOMs are intact. Pupils are equal, round, and reactive to light and accommodation. Nose is clear. No pharyngeal erythema noted. NECK: Supple. No JVD. Trachea midline. LUNGS: Very coarse and diminished throughout lung zaldivar. CARDIAC: Regular rate and rhythm at this time. No murmurs identified. ABDOMEN: Soft, nontender, nondistended. Bowel sounds present x4. EXTREMITIES: The patient's right lower extremity today is mildly erythematous and warm to the touch from all the way from her toes all the way up into her right groin. NEUROLOGIC: Grossly intact. DIAGNOSTIC: The patient's lab work that she had obtained in the emergency room yesterday. CBC showed a white count elevated at 17.7, hemoglobin low at 9.4, platelet count 165. The patient's D-dimer was elevated at 456. Chemistry panel was unremarkable except for total bilirubin was slightly high at 1.1. Brain natriuretic peptide was elevated at 797. Protein is low at 5.3, albumin low at 2.9. Lab work that was obtained yesterday afternoon when the patient was having SVT episode. CBC at that time revealed a white count elevated at 21.5, hemoglobin was slightly up to 9.7, platelet count continue to be within normal range at 172. INR is 1.0, PT 10.3. Chemistry panel shows sodium slightly high at 147, creatinine 1.31, BUN 24, GFR is at 39. Magnesium slightly low at 1.7. Troponin that was obtained yesterday is slightly elevated at 0.08. CK-MB is within normal range at 0.70, albumin low at 2.85. Chest x-ray that was obtained in the emergency room upon admission, findings suggestive of congestive heart failure exacerbation as per Radiology. The patient was given IV Lasix 20 mg IV in the ER. IMPRESSION/PLAN: 1. Right lower extremity cellulitis. The patient has erythema all the way from her toes all the way up into her right groin, very tender with warmth to touch. Slightly edematous. The patient's D-dimer on admission was elevated at 456 where we got an ultrasound of right lower extremity scheduled for today. That is to rule out DVT. We are going to continue the patient on IV antibiotic therapy of Rocephin and Flagyl. Rocephin 1 g IV daily along with Flagyl 500 mg twice a day. The patient's last white count yesterday afternoon was 21.5. We will repeat a CBC in the morning. We will give the patient Tylenol for her fever. She does have a lot of pain to that right lower extremity. She does have hydrocodone that she can take orally and she also does have morphine 1 mg IV she can have for severe pain. I also did order EMLA cream to that right leg that she can have. I did draw blood cultures on the patient this morning at 3 a.m. this morning when patient did spike a fever. Those are pending at this time. 2. Supraventricular tachycardia. The patient was admitted yesterday and about a few hours after she was admitted, she went into a supraventricular tachycardia, very fast rate up to 200 beats per minute. The patient's rate was sustained. I did give her adenosine 1 time IV push of 6 mg that did not bring her heart rate down for any amount of time. I repeated the adenosine four minutes later of 12 mg of adenosine that also did not keep her heart rate down sustained. I did call Cardiology in [place]. They recommended amiodarone infusion. The patient was given a loading infusion per protocol where she received a bolus of 150 mg over 30 mintes.. then a titrating infusion. We are going to switch the patient over oral dose today at 11 a.m. today. She can get 200 mg p.o. Her IV infusion around on 5 p.m. today and then she can get another dose of amiodarone tonight at 9:00 p.m. of 200 mg. Currently, the patient is doing great. Her heart rate is anywhere from 65- 85 and a nice normal sinus rhythm. She denies any chest pain. 3. hypoxemia. The patient is doing much better. She is now on 3 L nasal cannula and her oxygen sats were in the mid 90s. She does have a long history of chronic obstructive pulmonary disease with Suyapa's disease. We will continue with patient's Brovana and Pulmicort nebulizers twice a day. Also continue with Daliresp 500 mcg daily. She is also on prednisone 10 mg daily. 4. History of severe congestive heart failure. Plan; we will continue with Lasix 20 mg daily. She also does get an additional 20 mg daily on Thursday, Wednesdays, and Fridays. The patient's brain natriuretic peptide on admission was 797, which is not that bad for her. We will continue with beta-yakov or metoprolol tartrate 12.5 mg twice a day along with potassium chloride 10 mEq twice a day. The patient did have a troponin drawn about an hour after she went into SVT and it was just slightly elevated at 0.08. Her CK-MB was negative. We will continue her on telemetry at this time. 5. History of gout. Plan; continue with allopurinol 200 mg daily. 6. History of hyperlipidemia plan. Continue with Lipitor 40 mg daily. 7. History of a muscle cramp. Plan: Continue with baclofen 2.5 mg three times a day. 8. Recent hypomagnesemia. The patient's magnesium is just slightly low at 1.7. I gave her 2 doses of magnesium oxide today. She gets 500 mg this morning. This afternoon, we will repeat a magnesium level, tomorrow morning I distorted the two doses of the magnesium and we will follow up with that. 9. History of hypothyroidism. Plan; continue with levothyroxine 100 mcg daily. 10.History of gastroesophageal reflux disease. Plan; continue with omeprazole 40 mg daily in the morning. 11.History of depression. Plan; continue with Effexor extended release 550 mg daily. OVERALL PLAN: We will continue with the patient on IV antibiotic therapy of Flagyl and Rocephin for her right lower leg cellulitis. We will repeat CBC in the morning. Tylenol for fever. She does have some medications for pain. For patient's recent hypoxemia, she seems to be doing much better. The only chest x - ray showed exacerbation congestive heart failure. She did receive some extra Lasix. She seems to be doing better. Her oxygen saturations are well maintained on 3 L nasal cannula. She denies any chest pain or shortness of breath. For the patient's SVT episode, this is well controlled on the amiodarone drip, but we switched her over to amiodarone p.o. orally. Today, at this time, she is in a sinus rhythm anywhere from about 70-85 beats per minute. Hemoglobin has been stable today, was 9.7. We will repeat CBC in the morning. /[id number]/MODL MTDD
--- NOTE | 2019-06-13 14:04 | US ---
[id number] US/US Venous Doppler LE Right EXAM: RIGHT LOWER EXTREMITY DUPLEX ULTRASOUND INDICATION: Pain, swelling and redness. COMPARISON: None. DISCUSSION: The deep venous structures are compressible. No valvular incompetence or pulsatility seen. Spontaneity, phasicity and response to augmentation were noted by the technologist. Incidental 32 x 16 x 12 mm popliteal cyst. IMPRESSION: 1. No evidence of deep vein thrombosis in the right lower extremity. 2. Small popliteal cyst. Kenneth Garcia MD 06/13/19 [id number] Thank you for allowing us to participate in the care of your patient.
[2019-06-13] MEDS: atorvaSTATin 40 MG Tab PO SCH (20:17)
[2019-06-14] MEDS: Morphine 2 MG/ML Syringe IVPUSH PRN (02:35)
[2019-06-14] MEDS: cefTRIAXone 1 GM Vial IVPUSH SCH (02:39)
[2019-06-14] MEDS: Sodium Chloride 0.9% 10 ML Syringe FLUSH PRN (02:46)
[2019-06-14] MEDS: Omeprazole 20 MG Cap.CR PO SCH ×2 (06:35→17:23)
[2019-06-14] MEDS: Levothyroxine 100 MCG Tab PO SCH (06:35)
[2019-06-14] MEDS: Arformoterol 15 MCG/2 ML Neb Soln INH SCH ×2 (07:12→20:16)
[2019-06-14 07:42] LABS: ANION GAP 13.6 mmol/L (5-15)
[2019-06-14] MEDS: Allopurinol 100 MG Tab PO SCH (08:39)
[2019-06-14] MEDS: Furosemide 20 MG Tab PO SCH (08:39)
[2019-06-14] MEDS: Magnesium Oxide 500 MG Tab PO SCH (08:39)
[2019-06-14] MEDS: Docusate Sodium 100 MG Cap PO SCH ×2 (08:39→20:14)
[2019-06-14] MEDS: predniSONE 10 MG Tab PO SCH (08:39)
[2019-06-14] MEDS: Cholecalciferol (Vitamin D3) 25 MCG Tab PO SCH (08:40)
[2019-06-14] MEDS: Baclofen 10 MG Tab PO SCH ×3 (08:40→20:14)
[2019-06-14] MEDS: Roflumilast 500 MCG Tab PO SCH (08:40)
[2019-06-14] MEDS: Venlafaxine 150 MG Cap.ER PO SCH (08:40)
[2019-06-14] MEDS: DAPSONE 100 MG PO SCH (08:40)
[2019-06-14] MEDS: Polyethylene Glycol 3350 Powder 17 GM Packet PO SCH (08:40)
[2019-06-14] MEDS: Potassium Chloride 10 MEQ Tab.ER PO SCH ×3 (08:40→20:18)
[2019-06-14] MEDS: Metoprolol Tartrate 25 MG Tab PO SCH ×2 (08:40→20:13)
[2019-06-14] MEDS: Amiodarone 200 MG Tab PO SCH ×2 (08:40→20:14)
[2019-06-14] MEDS ORDERED: Nitroglycerin 0.4 MG Tab.SL SL PRN (08:47)
[2019-06-14] MEDS ORDERED: EPINEPHrine 1:10,000 1 MG/10 ML Syringe IVPUSH PRN (08:47)
[2019-06-14] MEDS ORDERED: Atropine 0.1 MG/ML 10 ML Syringe IVPUSH PRN (08:47)
[2019-06-14] MEDS ORDERED: Lidocaine 2% 100 MG/5 ML Syringe IVPUSH PRN (08:47)
[2019-06-14] MEDS: REVEFENACIN 175 MCG/3 ML NEB SCH (09:29)
[2019-06-14] MEDS: Calcium Carbonate 500 MG Tab.Chew PO SCH ×2 (09:46→20:13)
[2019-06-14] MEDS: Acetaminophen/HYDROcodone 325-5 MG Tab PO PRN (10:45)
--- NOTE | 2019-06-14 11:54 | PN ---
06/14/2019 PATIENT NAME: ANNAMARIE HUTTON CHIEF COMPLAINT: Overall does feel better. Right lower extremity is improving and warmth and redness. BRIEF HISTORY: An 84-year-old patient with chronic and complex medical history, who is a resident of assisting living facility, was admitted due to right lower leg pain and it was thought to be possible DVT. However, this is negative. She did have an elevated white blood cell count with a negative chest x-ray. However, her oxygen saturations were low. She was admitted for IV antibiotics and further workup. Pertinent diagnostic findings on admission, she had a white count of 17.7, that is responding to antibiotics. Hemoglobin 9.4, platelet 165. The patient initially had a D-dimer of 456. There was concern of a DVT, however, DVT of right lower extremity is negative. She did have an elevated BNP of 797. She was given 20 mg Lasix in the ED. Chest x-ray in the ED CHF component. Vital Signs: Blood pressure 118/58, temperature 98.2, heart rate 74, O2 sats on 2 L, 94%. REVIEW OF SYSTEMS: CONSTITUTIONAL: Does feel better today, however, somewhat weak. CV: No chest pain or palpitations. The patient was on telemetry this morning. She has been in a sinus rhythm after conversion with amiodarone. RESPIRATORY: No cough. No shortness of breath. GI: No vomiting, diarrhea. INTEGUMENTARY: Improved redness in her right thigh. PHYSICAL EXAMINATION: VITAL SIGNS: See vital signs above. GENERAL APPEARANCE: The patient is improving and in no respiratory distress. NECK: Supple with no JVD. LUNGS: Significantly diminished noted. CARDIAC: Regular rate and rhythm. Mild murmur noted. ABDOMEN: Soft, tender. Colostomy does have normal bowel tones. INTEGUMENTARY: Extreme brawniness noted to the upper and lower extremities. Very little if any redness throughout her right lower extremity, significantly receding in color, however, still warm to touch. LABORATORY DATA: This morning white count 13.7, RBC 2.5, hemoglobin down to 8.3, platelet 151, neutrophils improving to 74%, potassium and sodium normal, BUN up to 35, creatinine 1.43, that is up from yesterday. The patient did have an elevated troponin on June 12 at 0.08. IMPRESSION/PLAN: 1. Right lower extremity cellulitis, appears to be improving. We will continue on dual antibiotics. Elevate right lower extremity. Monitor inflammatory markers. 2. Recent supraventricular tachycardia, appears stable. Discontinue telemetry. She is on amiodarone. We will monitor this carefully. She has no chest pain. 3. Paroxysmal atrial fibrillation, now in sinus rhythm. She is off her anticoagulations due to recent GI bleed. Risk versus benefit has was explained as to risk of stroke. Pt understands. 4. Congestive heart failure, elevated BUN and creatinine today slightly. She does appear slightly dry, likely attempt to keep her more on the dry side. We will monitor this carefully as we determine the need for ongoing diuretic therapy. 5. History of gout. Continue with allopurinol. 6. History of hyperlipidemia. She is on moderate dose statin. 7. Hypothyroidism, on thyroid replacement therapy. 8. Gastroesophageal reflux disease. Continue with PPI therapy. 9. Depression. Continue with Effexor, seems stable. /[id number]/MODL MTDD
[2019-06-14] MEDS: atorvaSTATin 40 MG Tab PO SCH (20:12)
[2019-06-15] MEDS: cefTRIAXone 1 GM Vial IVPUSH SCH (04:35)
[2019-06-15] MEDS: Arformoterol 15 MCG/2 ML Neb Soln INH SCH ×2 (07:42→20:46)
[2019-06-15] MEDS: Cholecalciferol (Vitamin D3) 25 MCG Tab PO SCH (07:49)
[2019-06-15] MEDS: Levothyroxine 100 MCG Tab PO SCH (07:49)
[2019-06-15] MEDS: Polyethylene Glycol 3350 Powder 17 GM Packet PO SCH (07:49)
[2019-06-15] MEDS: Omeprazole 20 MG Cap.CR PO SCH ×2 (07:49→18:04)
[2019-06-15] MEDS: Calcium Carbonate 500 MG Tab.Chew PO SCH ×3 (08:14→21:11)
[2019-06-15] MEDS: Baclofen 10 MG Tab PO SCH ×3 (08:14→20:47)
[2019-06-15] MEDS: Magnesium Oxide 500 MG Tab PO SCH (08:14)
[2019-06-15] MEDS: Allopurinol 100 MG Tab PO SCH (08:15)
[2019-06-15] MEDS: Furosemide 20 MG Tab PO SCH ×2 (08:15→12:33)
[2019-06-15] MEDS: Venlafaxine 150 MG Cap.ER PO SCH (08:15)
[2019-06-15] MEDS: Potassium Chloride 10 MEQ Tab.ER PO SCH ×3 (08:15→21:12)
[2019-06-15] MEDS: Roflumilast 500 MCG Tab PO SCH (08:16)
[2019-06-15] MEDS: Docusate Sodium 100 MG Cap PO SCH ×2 (08:16→20:46)
[2019-06-15] MEDS: Amiodarone 200 MG Tab PO SCH ×2 (08:16→20:46)
[2019-06-15] MEDS: predniSONE 10 MG Tab PO SCH (08:17)
[2019-06-15] MEDS: Metoprolol Tartrate 25 MG Tab PO SCH ×2 (08:17→20:48)
[2019-06-15] MEDS: DAPSONE 100 MG PO SCH (08:18)
[2019-06-15] MEDS: REVEFENACIN 175 MCG/3 ML NEB SCH (10:09)
[2019-06-15] MEDS: Acetaminophen/HYDROcodone 325-5 MG Tab PO PRN (10:48)
--- NOTE | 2019-06-15 11:35 | PN ---
06/15/2019 PATIENT NAME: ANNAMARIE HUTTON CHIEF COMPLAINT: Overall is improving. However, in the middle of night she did have significant leg pain, more of a spasm than anything overall, though she is improving. White count is improving. Infection of her cellulitis seems to be improving. BRIEF HISTORY: The patient with multiple chronic complex medical condition who is admitted for cellulitis of her right lower extremity. 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 LABORATORY DATA: White count improving 13.7, decreasing neutrophilia. Vital signs are stable. She is afebrile. Electrolytes are good. Magnesium slightly low at 1.7. The patient has remained in sinus rhythm with a nice controlled rhythm. She did go into SVT requiring loading doses of amiodarone. She is on oral amiodarone now. No longer on telemetry. No chest pain. No palpitations. Heart rates are good. Chest x-ray did have some findings of CHF exacerbation. She is on diuretic therapy, Lasix. The patient does have COPD, however, does not have increase in mucus production. She is on oxygen 1-2 L nasal cannula. O2 sats 92%. PHYSICAL EXAMINATION: GENERAL: Does appear much improved. She is in no acute distress. VITAL SIGNS: As stated above. NECK: She has no JVD. It is supple. LUNGS: She does have some slight diminished breath sounds, which is chronic and normal baseline for her. CARDIAC: Regular rate and rhythm. Does have a murmur 3/6. It is systolic over her entire precordium area. ABDOMEN: Soft, nontender. Bowel sounds are present. EXTREMITIES: Right lower extremity. She does have receding erythematous. Very difficult to almost healed. Very difficult to discern. Still warm to touch. It is painful. Somewhat allodynia in nature. No palpable cord noted. Negative Homans sign. INTEGUMENTARY: The patient does have significant brawniness to bilateral lower extremities and bilateral upper extremities. IMPRESSION AND PLAN: 1. Right lower extremity cellulitis. This is improving, almost resolved. Continue to trend inflammatory markers which are continue to trend favorably. She has no deep vein thrombosis. We will continue with dual antibiotics for her. 2. Supraventricular tachycardia. This is resolved. She is in sinus rhythm. Continue with amiodarone, is tolerating well. 3. Hypoxia with chronic obstructive pulmonary disease, slight mild exacerbation. 4. History of congestive heart failure. She is on Lasix. Her weights are stable. No JVD. 5. History of gout. Continue with allopurinol. 6. History of hyperlipidemia. She is on statin 40 mg. DISPOSITION/OVERALL PLAN: We will continue with inpatient stay today. We will get her out of bed in assessing her mobility and her functional status today as we do anticipate discharge back to Assisted Living Facility within 24 to 48 hours with ongoing home health, PT and OT, and likely will need nursing care. /[id number]/MODL
[2019-06-15] MEDS: atorvaSTATin 40 MG Tab PO SCH (20:48)
[2019-06-16] MEDS: cefTRIAXone 1 GM Vial IVPUSH SCH (03:08)
[2019-06-16] MEDS: Sodium Chloride 0.9% 10 ML Syringe FLUSH PRN (03:16)
[2019-06-16] MEDS: Acetaminophen/HYDROcodone 325-5 MG Tab PO PRN (05:57)
[2019-06-16] MEDS: Arformoterol 15 MCG/2 ML Neb Soln INH SCH ×2 (07:05→20:57)
[2019-06-16] MEDS: Omeprazole 20 MG Cap.CR PO SCH ×2 (07:09→17:54)
[2019-06-16] MEDS: Levothyroxine 100 MCG Tab PO SCH (07:09)
[2019-06-16] MEDS: Polyethylene Glycol 3350 Powder 17 GM Packet PO SCH (08:12)
[2019-06-16] MEDS: DAPSONE 100 MG PO SCH (08:13)
[2019-06-16] MEDS: Docusate Sodium 100 MG Cap PO SCH ×2 (08:13→20:49)
[2019-06-16] MEDS: Amiodarone 200 MG Tab PO SCH ×2 (08:13→20:48)
[2019-06-16] MEDS: Cholecalciferol (Vitamin D3) 25 MCG Tab PO SCH (08:13)
[2019-06-16] MEDS: Calcium Carbonate 500 MG Tab.Chew PO SCH ×2 (08:15→20:52)
[2019-06-16] MEDS: Allopurinol 100 MG Tab PO SCH (08:16)
[2019-06-16] MEDS: predniSONE 10 MG Tab PO SCH (08:16)
[2019-06-16] MEDS: Venlafaxine 150 MG Cap.ER PO SCH (08:16)
[2019-06-16] MEDS: Potassium Chloride 10 MEQ Tab.ER PO SCH ×2 (08:16→20:50)
[2019-06-16] MEDS: Furosemide 20 MG Tab PO SCH (08:16)
[2019-06-16] MEDS: Baclofen 10 MG Tab PO SCH ×3 (08:17→20:48)
[2019-06-16] MEDS: Metoprolol Tartrate 25 MG Tab PO SCH ×2 (08:18→20:50)
[2019-06-16] MEDS: Roflumilast 500 MCG Tab PO SCH (08:23)
[2019-06-16] MEDS: REVEFENACIN 175 MCG/3 ML NEB SCH (10:55)
--- NOTE | 2019-06-16 12:39 | PN ---
06/16/2019 PATIENT NAME: ANNAMARIE HUTTON CHIEF COMPLAINT: Significant pain in her left upper arm with swelling. This is acute. The patient is in the hospital due to her right lower leg extremity cellulitis, which is improving. The patient is more functional in her ambulatory state. She does have improving, trending favorably inflammatory markers. Vital signs are stable. PHYSICAL EXAMINATION: VITAL SIGNS: This morning, vital signs; temperature is afebrile 98.4, heart rate 68, blood pressure 178/69, O2 sats 95% on 3 L. This is chronic for her. She is alert and oriented. LUNGS: Diminished breath sounds, however, this is chronic for her. CARDIAC: She does have regular rate and rhythm. Significant murmur, 3/6 tire across her entire precordium. ABDOMEN: Soft, nontender. Does have a colostomy. Bowel sounds are good. EXTREMITIES: Extremely brawniness. She does have edema to her right upper forearm, however, no break in skin. Good distal pulses. Slightly increase in warmth compared to contralateral upper edema, tender to touch. No IV extravasation. Significant allodynia in upper extremities now, lower right leg. Negative Homans sign. No palpable cord, much cooler, cooling down extremity. No excessive warmth. Less pain in her right lower leg. Much improved in her erythema. 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 PT 10.3, INR normal at 1.0, sodium 146, normal potassium 3.9, glucose 225, normal calcium at 9.7. She did have a BNP elevated at 797 on admission. However, clinically she does not favorable to be over fluid overload. Microbiology gram-negative rods returned without sensitivity. IMPRESSION AND PLAN: 1. Bacteremia, gram-negative rods, identify organism still pending in conjunction with right lower extremity cellulitis. Continue with ceftriaxone. She is afebrile, improving clinically. 2. Supraventricular tachycardia. This is resolved. She is in sinus rhythm. Continue with oral amiodarone. She is tolerating this well. 3. Hypoxia with chronic obstructive pulmonary disease. This is quite stable for her. 4. History of congestive heart failure. Continue with diuresis. Weights are stable. No JVD. 5. History of gout. She is on allopurinol. 6. History of hyperlipidemia. She is on statin therapy. DISPOSITION: Continue with inpatient stay today. Repeat blood cultures. She is improving in her mobility in her functional status. Anticipate discharge back to assisted living tomorrow morning regarding her left arm today. We will put in the sleeve and elevate this and monitor this carefully. She will eventually be going home with PT, OT, and nursing with close followup. /[id number]/MODL
[2019-06-16] MEDS: atorvaSTATin 40 MG Tab PO SCH (20:49)
[2019-06-17] MEDS: Acetaminophen/HYDROcodone 325-5 MG Tab PO PRN ×2 (01:32→12:03)
[2019-06-17] MEDS: cefTRIAXone 1 GM Vial IVPUSH SCH (03:21)
[2019-06-17] MEDS: Sodium Chloride 0.9% 10 ML Syringe FLUSH PRN (03:29)
[2019-06-17 06:21] VITALS: BP 102/52
[2019-06-17] MEDS: Levothyroxine 100 MCG Tab PO SCH (07:47)
[2019-06-17] MEDS: Arformoterol 15 MCG/2 ML Neb Soln INH SCH (07:47)
[2019-06-17] MEDS: Omeprazole 20 MG Cap.CR PO SCH (07:47)
[2019-06-17 07:56] VITALS: PULSE 63
[2019-06-17] MEDS: Polyethylene Glycol 3350 Powder 17 GM Packet PO SCH (08:47)
[2019-06-17] MEDS: Furosemide 20 MG Tab PO SCH ×2 (08:52→12:03)
[2019-06-17] MEDS: Docusate Sodium 100 MG Cap PO SCH (08:52)
[2019-06-17] MEDS: Venlafaxine 150 MG Cap.ER PO SCH (08:52)
[2019-06-17] MEDS: Potassium Chloride 10 MEQ Tab.ER PO SCH (08:52)
[2019-06-17] MEDS: Baclofen 10 MG Tab PO SCH (08:52)
[2019-06-17] MEDS: Allopurinol 100 MG Tab PO SCH (08:52)
[2019-06-17] MEDS: predniSONE 10 MG Tab PO SCH (08:52)
[2019-06-17] MEDS: Calcium Carbonate 500 MG Tab.Chew PO SCH (08:52)
[2019-06-17] MEDS: Roflumilast 500 MCG Tab PO SCH (08:52)
[2019-06-17] MEDS: Cholecalciferol (Vitamin D3) 25 MCG Tab PO SCH (08:52)
[2019-06-17] MEDS: DAPSONE 100 MG PO SCH (08:53)
[2019-06-17] MEDS: REVEFENACIN 175 MCG/3 ML NEB SCH (08:54)
[2019-06-17] MEDS: Metoprolol Tartrate 25 MG Tab PO SCH (08:55)
[2019-06-17] MEDS: Amiodarone 200 MG Tab PO SCH (08:55)
[2019-06-17] MEDS: Acetaminophen 325 MG Tab PO PRN (10:29)
--- NOTE | 2019-06-17 19:15 | PCM.DCSUM1 ---
Discharge Summary - Hospital Course Diagnosis: Stroke: No - Discharge Data Discharge Date: 06/17/19 Discharge Disposition: DC/Tfer to Jail [facility], [place] 65 Condition: Fair - Referral to Home Health Primary Care Physician: Elvira Armijo MD - Patient Instructions Diet: Regular Diet as Tolerated Activity: As Tolerated, Cough & Deep Breathe Driving: Do Not Drive Showering/Bathing: May Shower Notify Provider of: Fever, Increased Pain, Swelling and Redness, Drainage, Nausea and/or Vomiting Other/Special Instructions: light compression dressing left upper arm. Monitor and report worsening redness of her left upper arm. Rocephin 1 g IM every 24 hours next dose 06/18 x 5 days - Discharge Plan *PRESCRIPTION DRUG MONITORING PROGRAM REVIEWED*: Not Applicable *COPY OF PRESCRIPTION DRUG MONITORING REPORT IN PATIENT JACKI: Not Applicable Prescriptions/Med Rec: cefTRIAXone [Rocephin] 1 gm IM Q24H 5 Days #5 adv Home Medications: Home Meds Cholecalciferol (Vitamin D3) [Vitamin D3] 1,000 unit PO DAILY@0800 09/27/13 [ History] Albuterol Sulfate [Albuterol Sulfate HFA] 2 puff INH Q4HR PRN 08/28/14 [History] Omeprazole [Prilosec] 40 mg PO BIDAC 01/20/15 [History] Venlafaxine [Effexor XR] 150 mg PO DAILY 04/12/15 [History] Docusate Sodium [Colace] 100 mg PO BID 06/27/15 [History] Albuterol [Proventil Neb Soln] 2.5 mg NEB QID PRN 02/25/16 [History] Potassium Chloride [K-Tab ER] 10 meq PO BID 02/25/16 [History] Dapsone 100 mg PO DAILY 06/19/16 [History] Metoprolol Tartrate 12.5 mg PO BID 11/08/16 [History] Roflumilast [Daliresp] 500 mcg PO DAILY #30 tablet 01/20/17 [Rx] Polyethylene Glycol 3350 [MiraLAX] 17 gm PO DAILY@08 05/21/17 [History] Furosemide [Lasix] 20 mg PO DAILY 12/09/17 [History] atorvaSTATin [Lipitor] 40 mg PO BEDTIME 02/24/18 [History] Hydrocodone/Acetaminophen [Hydrocodon-Acetaminophen 5-325] 1 tab PO BID PRN 04/15 [History] allopurinoL [Zyloprim] 200 mg PO DAILY 05/08/18 [History] Baclofen 2.5 mg PO TID 07/11/18 [History] Levothyroxine [Synthroid] 100 mcg PO ACBREAKFAST 09/22/18 [History] Arformoterol [Brovana] 15 mcg INH BID 01/04/19 [History] Furosemide 20 mg PO MOWEFR@1200 06/12/19 [History] Menthol [Biofreeze] 1 applic TOP BID PRN 06/12/19 [History] Ondansetron [Zofran ODT] 4 mg PO Q4HR PRN 06/12/19 [History] Revefenacin [Yupelri] 1 each NEB DAILY 06/12/19 [History] predniSONE [Prednisone] 10 mg PO DAILY 06/12/19 [History] cefTRIAXone [Rocephin] 1 gm IM Q24H 5 Days #5 adv 06/17/19 [Rx] - Discharge Summary/Plan Comment DC Time >30 min.: Yes Discharge Summary/Plan Comment: final dx -- Right lower and Left upper extremity cellulitis, with bacteremia -- Recent supraventricular tachycardia -- Paroxysmal atrial fibrillation History Summary 84-year-old patient with chronic and complex medical history, who is a resident of assisting living facility, was admitted due to right lower leg pain and it was thought to be possible DVT however was dx as cellulitis as her US was neg for DVT. She was admitted for IV antibiotics and further workup. Hosp Course: Pertinent diagnostic findings on admission was notable white count of 17.7, which responded to antibiotics. Hemoglobin 9.4, platelet 165. The patient initially had a D-dimer of 456. There was concern of a DVT, however , DVT of right lower extremity was negative. She did have an elevated BNP of 797 and diureses well with lasix. Her Chest x-ray in the ED showed CHF component however this was stable with lasix. She was given IV abx of ceftriaxone and tolerated it well with her inflammamatory makers trended down. She remained on home oxygen. Her redness to her left leg and inner thigh resolved completely however 2 days prior to DC she did complain of TAMELA extremity pain and edema, the day of dc this edema was noted to have "blood blister" but likely not as result of IV but BP cuff. She did have some mild redness that was noted in the inner aspect of upper arm. Compression and elevation was applied. Meds on DC Cont home meds except no anticoagulation meds Rocephin IM daily x 5 days Disposition: Due to patient's condition, need for close monitoring and ongoing Abx it was felt that LTC was needed. Patient and family agreed with plan. Arrangements have been made to f/u with me in 3 days in [place]. - Patient Data Vitals - Most Recent: Last Vital Signs Temp 98.5 F 06/17/19 06:20 Pulse 68 06/17/19 08:55 Resp 18 06/17/19 06:20 BP 121/53 L 06/17/19 08:55 Pulse Ox 98 06/17/19 07:53 Weight - Most Recent: 107 lb I&O - Last 24 hours: Intake & Output 06/17/19 06/17/19 06/17/19 06:59 14:59 22:59 Intake Total 200 Balance 200 Lab Results - Last 24 hrs: Laboratory Results - last 24 hr 06/17/19 Range/Units 07:10 WBC 10.36 H (5.00-10.00) 10^3/uL RBC 2.37 L (3.80-5.50) 10^6/uL Hgb 7.8 L (12.0-16.0) g/dL Hct 26.1 L (37.0-47.0) % MCV 110.1 H (82.0-92.0) fL MCH 32.9 H (27.0-31.0) pg MCHC 29.9 L (32.0-36.0) g/dL RDW 15.9 H (11.5-14.5) % Plt Count 187 (150-400) 10^3/uL MPV 11.4 H (7.4-10.4) fL Immature Gran % (Auto) 0.6 (0.0-5.0) % Neut % (Auto) 75.0 H (50.0-70.0) % Lymph % (Auto) 14.6 L (20.0-40.0) % [place] % (Auto) 8.2 H (2.0-8.0) % Eos % (Auto) 1.2 (1.0-3.0) % Baso % (Auto) 0.4 (0.0-1.0) % Immature Gran # (Auto) 0.06 (0.00-0.50) 10^3/uL Neut # (Auto) 7.78 H (2.50-7.00) 10^3/uL Lymph # (Auto) 1.51 (1.00-4.00) 10^3/uL [place] # (Auto) 0.85 H (0.10-0.80) 10^3/uL Eos # (Auto) 0.12 (0.10-0.30) 10^3/uL Baso # (Auto) 0.04 (0.00-0.10) 10^3/uL Microcytosis 1+ slight Schistocytes Occasional TRENT Results - Last 24 hrs: Microbiology 06/16/19 13:20 Aerobic Blood Culture - Preliminary Blood - Venous NO GROWTH AFTER 1 DAY Anaerobic Blood Culture - Preliminary NO GROWTH AFTER 1 DAY 06/16/19 13:35 Aerobic Blood Culture - Preliminary Blood - Venous - Lab Draw NO GROWTH AFTER 1 DAY Anaerobic Blood Culture - Preliminary NO GROWTH AFTER 1 DAY 06/13/19 03:55 Bacterial Identification - Final Blood - Venous - Lab Draw Escherichia Coli 06/13/19 04:30 Bacterial Identification - Final Blood - Venous Escherichia Coli Med Orders - Current: Current Medications Discontinued Medications Acetaminophen (Tylenol) 650 mg PO Q4H PRN PRN Reason: Fever Last Admin: 06/17/19 10:29 Dose: 650 mg Acetaminophen (Tylenol) Confirm Administered Dose 650 mg .ROUTE .STK-MED ONE Stop: 06/13/19 03:47 Last Admin: 06/13/19 04:04 Dose: Not Given Hydrocodone Bitart/Acetaminophen ([place] 325-5 Mg) 1 tab PO BID PRN PRN Reason: Pain Last Admin: 06/17/19 12:03 Dose: 1 tab Adenosine (Adenocard) 6 mg IVPUSH NOW ONE Stop: 06/12/19 16:31 Last Admin: 06/12/19 19:34 Dose: Not Given Adenosine (Adenocard) 6 mg IVPUSH NOW ONE Stop: 06/12/19 16:31 Last Admin: 06/12/19 16:34 Dose: 6 mg Adenosine (Adenocard) 12 mg IVPUSH NOW ONE Stop: 06/12/19 16:39 Last Admin: 06/12/19 16:38 Dose: 12 mg Albuterol (Proventil Neb Soln) 2.5 mg NEB QID PRN PRN Reason: Shortness of Breath Last Admin: 06/13/19 13:20 Dose: 2.5 mg Albuterol (Ventolin Hfa) 0 gm INH Q4HR PRN PRN Reason: Shortness of Breath Allopurinol (Zyloprim) 200 mg PO DAILY [facility] Last Admin: 06/17/19 08:52 Dose: 200 mg Amiodarone HCl (Cordarone) 150 mg IV ONETIME ONE; Protocol Stop: 06/12/19 16:51 Last Admin: 06/12/19 16:51 Dose: 150 mg Amiodarone HCl (Cordarone) 200 mg PO BID [facility] Last Admin: 06/17/19 08:55 Dose: 200 mg Arformoterol Tartrate (Brovana) 15 mcg INH BIDRT [facility] Last Admin: 06/17/19 07:47 Dose: 15 mcg Atorvastatin Calcium (Lipitor) 40 mg PO BEDTIME [facility] Last Admin: 06/16/19 20:49 Dose: 40 mg Atropine Sulfate (Atropine 0.1 Mg/Ml) 0 mg IVPUSH ASDIRECTED PRN PRN Reason: Heart Baclofen (Lioresal) 2.5 mg PO TID [facility] Last Admin: 06/17/19 08:52 Dose: 2.5 mg Calcium Carbonate/Glycine (Tums) 500 mg PO BID [facility] Last Admin: 06/17/19 08:52 Dose: 500 mg Ceftriaxone Sodium (Rocephin) 1 gm IVPUSH Q24H [facility] Last Admin: 06/17/19 03:21 Dose: 1 gm Cholecalciferol (Vitamin D3) 25 mcg PO DAILY@0800 [facility] Last Admin: 06/17/19 08:52 Dose: 25 mcg Dapsone (Dapsone) 100 mg PO DAILY [facility] Last Admin: 06/13/19 09:54 Dose: Not Given Docusate Sodium (Colace) 100 mg PO BID [facility] Last Admin: 06/17/19 08:52 Dose: 100 mg Epinephrine HCl (Epinephrine 1:10,000) 1 mg IVPUSH ASDIRECTED PRN PRN Reason: Heart Furosemide (Lasix) 20 mg IVPUSH NOW ONE Stop: 06/12/19 13:27 Last Admin: 06/12/19 13:42 Dose: 20 mg Furosemide (Lasix) 20 mg PO MOWEFR@1200 [facility] Last Admin: 06/17/19 12:03 Dose: 20 mg Furosemide (Lasix) 20 mg PO DAILY [facility] Last Admin: 06/17/19 08:52 Dose: 20 mg Amiodarone HCl 900 mg/ (Dextrose/Water) 518 mls @ 34.5 mls/hr IV TITRATE [facility]; Protocol Amiodarone HCl 900 mg/ (Dextrose/Water) 518 mls @ 34.5 mls/hr IV ASDIRECTED [facility] ALICE ; Protocol Amiodarone HCl 900 mg/ (Dextrose/Water) 518 mls @ 34.5 mls/hr IV CONTINUOUS [facility] ALICE ; Protocol Amiodarone HCl 900 mg/ (Dextrose/Water) 518 mls @ 34.5 mls/hr IV ASDIRECTED [facility] ALICE ; Protocol Amiodarone HCl 900 mg/ (Dextrose/Water) 518 mls @ 34.5 mls/hr IV ASDIRECTED [facility] ALICE ; Protocol Stop: 06/13/19 17:00 Last Infusion: 06/12/19 22:05 Dose: 16.7 mls/hr Levothyroxine Sodium (Synthroid) 100 mcg PO ACBREAKFAST [facility] Last Admin: 06/17/19 07:47 Dose: 100 mcg Lidocaine HCl (Xylocaine 2%) 0 mg IVPUSH ASDIRECTED PRN PRN Reason: Heart Lidocaine/Prilocaine (Emla Crm) 0 gm TOP Q4H PRN PRN Reason: Pain Last Admin: 06/12/19 17:16 Dose: 1 applic Magnesium Oxide (Magnesium Oxide) 500 mg PO DAILY [facility] Stop: 06/15/19 10:00 Last Admin: 06/15/19 08:14 Dose: 500 mg Metoprolol Tartrate (Lopressor) 12.5 mg PO BID [facility] Last Admin: 06/17/19 08:55 Dose: 12.5 mg Metronidazole (Flagyl) 500 mg PO Q12H [facility] Last Admin: 06/13/19 11:47 Dose: 500 mg Morphine Sulfate (Morphine) 1 mg IVPUSH Q4H PRN PRN Reason: Pain Last Admin: 06/14/19 02:35 Dose: 1 mg Nitroglycerin (Nitrostat) 0.4 mg SL ASDIRECTED PRN PRN Reason: Heart Realtime Pain Relief - Menthol 1.5% Lotion *Ptom* 1 applic TOP BID PRN PRN Reason: Pain Revefenacin (Yupelri ) 175 Mcg/3 Ml Own Med 1 each NEB DAILY [facility] Last Admin: 06/17/19 08:54 Dose: 1 each Omeprazole (Omeprazole) 40 mg PO BIDAC [facility] Last Admin: 06/17/19 07:47 Dose: 40 mg Ondansetron HCl (Zofran Odt) 4 mg PO Q4HR PRN PRN Reason: Nausea Dapsone 100 Mg Tab * (*Own Med) 1 each PO DAILY [facility] Last Admin: 06/17/19 08:53 Dose: 1 each Polyethylene Glycol (Miralax) 17 gm PO DAILY@08 [facility] Last Admin: 06/17/19 08:47 Dose: 17 gm Potassium Chloride (Klor-Con 10) 10 meq PO BID [facility] Last Admin: 06/17/19 08:52 Dose: 10 meq Prednisone (Prednisone) 10 mg PO DAILY [facility] Last Admin: 06/17/19 08:52 Dose: 10 mg Roflumilast (Daliresp) 500 mcg PO DAILY [facility] Last Admin: 06/17/19 08:52 Dose: 500 mcg Sodium Chloride (Saline Flush) 10 ml FLUSH Q8HR PRN PRN Reason: keep vein open Last Admin: 06/17/19 03:29 Dose: 10 ml Venlafaxine HCl (Effexor Xr) 150 mg PO DAILY [facility] Last Admin: 06/17/19 08:52 Dose: 150 mg
== END 2019-06-17 12:45 | DRG 603 ==
LOC: KA.ED 11:27 → KA.MS 13:29 → OBSVTOIN 16:40 → KA.MS 16:41
PROVIDERS: ADMIT Physician Assistant; ATTEND Family Medicine
DX: L03.115 Cellulitis of right lower limb (principal); E11.22 Type 2 diabetes mellitus with diabetic chronic kidney disease; I47.1 Supraventricular tachycardia; R09.02 Hypoxemia; J44.1 Chronic obstructive pulmonary disease with (acute) exacerbation; I13.0 Hypertensive heart and chronic kidney disease with heart failure and stage 1 through stage 4 chronic kidney disease, or unspecified chronic kidney disease; J44.9 Chronic obstructive pulmonary disease, unspecified; I48.91 Unspecified atrial fibrillation; I08.0 Rheumatic disorders of both mitral and aortic valves; L03.114 Cellulitis of left upper limb; I48.0 Paroxysmal atrial fibrillation; M10.9 Gout, unspecified; H91.90 Unspecified hearing loss, unspecified ear; H54.7 Unspecified visual loss; E78.5 Hyperlipidemia, unspecified; E83.42 Hypomagnesemia; R25.2 Cramp and spasm; E03.9 Hypothyroidism, unspecified; K21.9 Gastro-esophageal reflux disease without esophagitis; F32.9 Major depressive disorder, single episode, unspecified; I87.8 Other specified disorders of veins; L30.8 Other specified dermatitis; D50.9 Iron deficiency anemia, unspecified; E78.00 Pure hypercholesterolemia, unspecified; Z90.10 Acquired absence of unspecified breast and nipple; Z99.81 Dependence on supplemental oxygen; N18.9 Chronic kidney disease, unspecified; I50.9 Heart failure, unspecified; M81.0 Age-related osteoporosis without current pathological fracture; M19.90 Unspecified osteoarthritis, unspecified site; G89.29 Other chronic pain; Z91.041 Radiographic dye allergy status; M54.9 Dorsalgia, unspecified; Z95.2 Presence of prosthetic heart valve; G43.909 Migraine, unspecified, not intractable, without status migrainosus; D64.9 Anemia, unspecified; Z88.1 Allergy status to other antibiotic agents; Z88.0 Allergy status to penicillin; Z88.8 Allergy status to other drugs, medicaments and biological substances; Z79.52 Long term (current) use of systemic steroids; Z79.890 Hormone replacement therapy; Z79.899 Other long term (current) drug therapy; Z79.01 Long term (current) use of anticoagulants; Z87.01 Personal history of pneumonia (recurrent); Z87.891 Personal history of nicotine dependence; Z98.49 Cataract extraction status, unspecified eye; Z85.3 Personal history of malignant neoplasm of breast; Z85.038 Personal history of other malignant neoplasm of large intestine; I25.2 Old myocardial infarction
CPT/HCPCS: 71046; 80053; 83880; 85025; 85379; 93005 ×2; 96374; 99284; 99285; J0153 ×2; J1940; 36415; 80048; 82553; 83735; 84484; 85610; 87040; 87077; 87186; 93971; 94640; A9270-GY; J0282; J0696; J2270; J7060; J7613-GY

== ENCOUNTER 2019-07-12 08:07 | Inpatient (IN) | payer MEDICARE, BC ==
--- NOTE | 2019-07-12 08:56 | EDM.PDOC ---
ED HPI GENERAL MEDICAL PROBLEM - General Chief Complaint: General Stated Complaint: LEG CELLULITIS Time Seen by Provider: 07/12/19 08:19 Source of Information: Reports: Patient, Significant Other History Limitations: Reports: No Limitations - History of Present Illness INITIAL COMMENTS - FREE TEXT/NARRATIVE: Patient presents with worsening right lower leg pain. She was diagnosed with cellulitis in the leg about 3 weeks ago, was hospitalized with bacteremia confirmed on blood cultures (E coli). She was treated with Rocephin and at discharge was switched from assisted living to [facility] so she could get daily injections (of Rocephin, not sure?). While inpatient her left arm showed signs of cellulitis, evidently also. Her leg and arm improved. She has been back to assisted living at least a week now. She doesn't think she is taking any antibiotics now. Her lower leg and foot are very tender to any touch but okay if left alone. She has a colostomy and denies any problems with that area. Denies any dysuria or other problems besides the chronic incontinence. The left arm seems okay now just the right leg. Right Leg Pain Score (Numeric/FACES): 10 - Related Data Allergies Allergy/AdvReac Type Severity Reaction Status Date / Time penicillamine Allergy Severe Anaphylactic Verified 07/12/19 08:28 Shock Penicillins Allergy Severe Anaphylactic Verified 07/12/19 08:28 Shock Cephalosporins Allergy Unknown Cannot Verified 07/12/19 08:28 Remember aspirin Allergy Other Verified 07/12/19 08:28 Carbapenems Allergy Cannot Verified 07/12/19 08:28 Remember divalproex sodium Allergy Delusions Verified 07/12/19 08:28 [From [facility]] imipenem Allergy Cannot Verified 07/12/19 08:28 Remember Iodinated Contrast Media Allergy Chest Pain Verified 07/12/19 08:28 valproic acid Allergy Confusion Verified 07/12/19 08:28 Home Meds: Home Meds Cholecalciferol (Vitamin D3) [Vitamin D3] 1,000 unit PO DAILY@0800 09/27/13 [ History] Albuterol Sulfate [Albuterol Sulfate HFA] 2 puff INH Q4HR PRN 08/28/14 [History] Omeprazole [Prilosec] 40 mg PO BIDAC 01/20/15 [History] Venlafaxine [Effexor XR] 150 mg PO DAILY 04/12/15 [History] Docusate Sodium [Colace] 100 mg PO BID 06/27/15 [History] Albuterol [Proventil Neb Soln] 2.5 mg NEB QID PRN 02/25/16 [History] Potassium Chloride [K-Tab ER] 10 meq PO BID@0800,1800 02/25/16 [History] Dapsone 100 mg PO DAILY 06/19/16 [History] Metoprolol Tartrate 12.5 mg PO BID@0800,1800 11/08/16 [History] Roflumilast [Daliresp] 500 mcg PO DAILY #30 tablet 01/20/17 [Rx] Polyethylene Glycol 3350 [MiraLAX] 17 gm PO DAILY@08 05/21/17 [History] Furosemide [Lasix] 20 mg PO DAILY 12/09/17 [History] atorvaSTATin [Lipitor] 40 mg PO BEDTIME 02/24/18 [History] Hydrocodone/Acetaminophen [Hydrocodon-Acetaminophen 5-325] 1 tab PO TID PRN 04/15 [History] allopurinoL [Zyloprim] 200 mg PO DAILY 05/08/18 [History] Baclofen 2.5 mg PO TID PRN 07/11/18 [History] Levothyroxine [Synthroid] 100 mcg PO ACBREAKFAST 09/22/18 [History] Arformoterol [Brovana] 15 mcg INH BID 01/04/19 [History] Furosemide 20 mg PO MOWEFR@1200 06/12/19 [History] Menthol [Biofreeze] 1 applic TOP BID PRN 06/12/19 [History] Ondansetron [Zofran ODT] 4 mg PO Q4HR PRN 06/12/19 [History] Revefenacin [Yupelri] 1 each NEB DAILY@1300 06/12/19 [History] predniSONE [Prednisone] 10 mg PO DAILY 06/12/19 [History] Acetaminophen [Tylenol] 650 mg PO Q4H PRN 07/12/19 [History] Past Medical History HEENT History: Reports: Hard of Hearing, Impaired Vision Cardiovascular History: Reports: Afib, Heart Failure, Heart Valve Replacement, High Cholesterol, Hypertension, IA, SOB on Exertion, Other (See Below) Other Cardiovascular History: mitral stenosis,aortic stenosis,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,vasculitis Respiratory History: Reports: COPD, Pneumonia, Recurrent, SOB, Other (See Below) Other Respiratory History: pleural effusions, on home oxygen 3L at rest & 4L with activity Gastrointestinal History: Reports: Bowel Obstruction, Diverticulosis, GERD, Other (See Below) Other Gastrointestinal History: GI bleed Genitourinary History: Reports: Chronic Renal Insuffiency, Renal Disease, Other (See Below) Other Genitourinary History: acquired cyst of kidney 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 History: Reports: Other HEARING AID TECHNICIAN History: 6 daughters, live term births Musculoskeletal History: Reports: Arthritis, Back Pain, Chronic, Osteoporosis, Other (See Below) Other Musculoskeletal History: compression fracture of thoracolumbar vertebra Neurological History: Reports: Migraines Other Neuro History: new onset confusion starting 06/18/2016 Psychiatric History: Reports: Depression Endocrine/Metabolic History: Reports: Hypothyroidism, Osteoporosis Hematologic History: Reports: Anemia, Blood Transfusion(s) Immunologic History: Reports: Other (See Below) Other Immunologic History: chronic steroid use Oncologic (Cancer) History: Reports: Breast, Colon Dermatologic History: Reports: Venous Stasis Dermatitis, Other (See Below) Other Dermatologic History: discolored skin from chronic steroid use - Infectious Disease History Infectious Disease History: Reports: Chicken Pox, Measles, Mumps, Rheumatic Fever - Past Surgical History Head Surgeries/Procedures: Reports: None HEENT Surgical History: Reports: Cataract Surgery Cardiovascular Surgical History: Reports: Valve Replacement Respiratory Surgical History: Reports: Thoracentesis GI Surgical History: Reports: Colonoscopy, Colostomy, EGD Female Surgical History: Reports: Breast Biopsy, Mastectomy Endocrine Surgical History: Reports: None Neurological Surgical History: Reports: Laminectomy Musculoskeletal Surgical History: Reports: Other (See Below) Other Musculoskeletal Surgeries/Procedures:: spinal injections, laminectomy Oncologic Surgical History: Reports: Mastectomy Dermatological Surgical History: Reports: None Social & Family History - Family History Family Medical History: Noncontributory HEENT: Reports: None Cardiac: Reports: None Respiratory: Reports: None GI: Reports: None : Reports: None OBGYN: Reports: None Musculoskeletal: Reports: None Neurological: Reports: None Psychiatric: Reports: None Endocrine/Metabolic: Reports: None Hematologic: Reports: None Immunologic: Reports: None Dermatologic: Reports: None Oncologic: Reports: Colon, Pancreatic Other Oncologic Family History: parents had ca - Caffeine Use Caffeine Use: Reports: Coffee, Soda - Living Situation & Occupation Living situation: Reports: Occupation: Retired ED ROS GENERAL - Review of Systems Review Of Systems: See Below Constitutional: Reports: Decreased Appetite (somewhat, chronic). Denies: Fever , Chills HEENT: Denies: Ear Pain, Throat Pain, Vision Change Respiratory: Denies: Shortness of Breath, Cough Cardiovascular: Denies: Lightheadedness, Syncope GI/Abdominal: Reports: Other (almost two months ago she had a GI bleed and was transfused 3 units (1 here and 2 in [place] after transfer). They never found the exact source of bleeding but it stopped.). Denies: Abdominal Pain, Diarrhea , Nausea, Vomiting : Denies: Dysuria, Flank Pain Musculoskeletal: Reports: Leg Pain (right), Foot Pain (right), Other (she has osteoporosis secondary to long-term used of prednisone to control headaches). Denies: Neck Pain, Shoulder Pain, Arm Pain, Back Pain, Hand Pain Skin: Reports: Erythema (foot and ankle). Denies: Jaundice, Mottled, Pallor, Diaphoresis Neurological: Denies: Confusion, Dizziness, Seizure, Syncope, Trouble Speaking Psychiatric: Denies: Agitation, Anxiety, Confusion ED EXAM, GENERAL - Physical Exam Exam: See Below Exam Limited By: No Limitations General Appearance: Alert, No Apparent Distress, Thin Ears: Normal External Exam, Hearing Grossly Normal Nose: Normal Inspection, No Blood Throat/Mouth: Normal Inspection, Normal Lips, Normal Voice, No Airway Compromise Head: Atraumatic, Normocephalic Neck: Normal Inspection, Full Range of Motion Respiratory/Chest: No Respiratory Distress, Lungs Clear, Normal Breath Sounds, No Accessory Muscle Use Cardiovascular: Regular Rate, Rhythm, Systolic Murmur (chronic) GI/Abdominal: Soft, Non-Tender, Other (colostomy) Extremities: Leg Pain (Pain to palpation of right lower leg and foot. There is moderate swelling and erythema mostly at foot and ankle compared to left leg. Both lower legs have chronic venous stasis changes. No sores or scabs; skin intact.) Neurological: Alert, Oriented, Normal Cognition, No Motor/Sensory Deficits Psychiatric: Normal Affect, Normal Mood Skin Exam: Warm, Dry, Intact Course - Vital Signs Last Recorded V/S: Last Vital Signs Temp 97.7 F 07/12/19 08:23 Pulse 81 07/12/19 09:15 Resp 20 07/12/19 09:15 BP 109/33 L 07/12/19 09:15 Pulse Ox 94 L 07/12/19 09:15 - Orders/Labs/Meds Orders: Active Orders 24 hr Category Date Time Status Patient Status [ADT] Routine ADT 07/12/19 10:08 Ordered Peripheral IV Care [RC] . DIRECTED Care 07/12/19 08:37 Active CULTURE BLOOD [BC] Stat Lab 07/12/19 08:30 Ordered CULTURE BLOOD [BC] Stat Lab 07/12/19 08:30 Ordered REFLEX LACTIC ACID YES OR NO [CHEM] Routine Lab 07/12/19 09:16 Received Sodium Chloride 0.9% [Saline Flush] Med 07/12/19 08:37 Active 10 ml FLUSH Q8HR PRN Vancomycin 1 gm Med 07/12/19 09:52 Ordered Sodium Chloride 0.9% [Normal Saline] 250 ml IV ONETIME Blood Culture x2 Reflex Set [OM.PC] Stat Oth 07/12/19 08:30 Ordered Peripheral IV Insertion Adult [OM.PC] Routine Oth 07/12/19 08:37 Ordered Medication Orders Vancomycin HCl 1 gm/ Sodium (Chloride) 250 mls @ 167 mls/hr IV ONETIME ONE Stop: 07/12/19 11:21 Sodium Chloride (Saline Flush) 10 ml FLUSH Q8HR PRN PRN Reason: keep vein open Labs: Laboratory Tests 07/12/19 07/12/19 Range/Units 08:30 08:30 WBC 11.15 H (5.00-10.00) 10^3/uL RBC 3.23 L (3.80-5.50) 10^6/uL Hgb 10.4 L D (12.0-16.0) g/dL Hct 34.4 L (37.0-47.0) % MCV 106.5 H D (82.0-92.0) fL MCH 32.2 H (27.0-31.0) pg MCHC 30.2 L (32.0-36.0) g/dL RDW 18.1 H (11.5-14.5) % Plt Count 132 L (150-400) 10^3/uL MPV 12.1 H (7.4-10.4) fL Immature Gran % (Auto) 0.4 (0.0-5.0) % Neut % (Auto) 86.5 H (50.0-70.0) % Lymph % (Auto) 9.3 L (20.0-40.0) % [place] % (Auto) 2.9 (2.0-8.0) % Eos % (Auto) 0.5 L (1.0-3.0) % Baso % (Auto) 0.4 (0.0-1.0) % Immature Gran # (Auto) 0.04 (0.00-0.50) 10^3/uL Neut # (Auto) 9.65 H (2.50-7.00) 10^3/uL Lymph # (Auto) 1.04 (1.00-4.00) 10^3/uL [place] # (Auto) 0.32 (0.10-0.80) 10^3/uL Eos # (Auto) 0.06 L (0.10-0.30) 10^3/uL Baso # (Auto) 0.04 (0.00-0.10) 10^3/uL Atypical Lymphocytes Few Sodium 146 H (136-145) mmol/L Potassium 4.3 (3.3-5.3) mmol/L Chloride 105 (98-115) mmol/L Carbon Dioxide 29.4 (21.0-32.0) mmol/L Anion Gap 15.9 H (5-15) mmol/L BUN 27 H (6-25) mg/dL Creatinine 1.24 H (0.51-1.17) mg/dL Est Cr Clr Drug Dosing 25.12 mL/min Estimated GFR (MDRD) 41 mL/min Glucose 90 (75 - 99) mg/dL Lactic Acid 3.0 H (0.4-2.0) mmol/L Calcium 9.3 (8.7-10.3) mg/dL Meds: Medications Generic Name Dose Route Start Last Admin Trade Name Freq PRN Reason Stop Dose Admin Vancomycin HCl 1 gm/ Sodium 250 mls @ 167 mls/hr 07/12/19 09:52 Chloride IV 07/12/19 11:21 ONETIME ONE Sodium Chloride 10 ml 07/12/19 08:37 Saline Flush FLUSH Q8HR PRN keep vein open - Re-Assessments/Exams Free Text/Narrative Re-Assessment/Exam: 07/12/19 10:13 WBC, ANC, lactic acid are elevated mildly. I reviewed recent hospitalization and blood culture reports. With patient's extensive list of antibiotic allergies it is somewhat difficult to determine the best initial antibiotic to treat with. On the initial blood culture from last hospitalization on 06/13/19 there was resistance to cephalosporins, quinolones and ampicillin/sulbactam but sensitivity to ertapenem and Zosyn. Patient is allergic to carbapenems and anaphylactic allergy to penicillins. By the time the culture report was back she seemed to be improving on Rocephin alone so that was continued and a subsequent blood culture showed no growth. Clinically she improved with apparent resolution of the cellulitis on Rocephin. However now that cellulitis is back and lactic acid indicates a possible sepsis again, Anurag Telles and I spent some time going over past hospitalizations and treatments over the last 4 years to try to determine what antibiotics she actually seems to tolerate. Ertapenem was first added to her allergy list in February of 2016 but in July 2016 it was used again for several days of hospitalization in [place] with no report of problem. After discussion we feel that Vancomycin is the best choice for initial treatment even considering the initial blood culture showed E coli. We feel the cellulitis is most likely a Staph species. Treatment will be adjust as needed inpatient following clinical course and pending blood cultures results. I discussed findings and treatment plan with patient, and daughter who agree. Patient stable at admission. Departure - Departure Time of Disposition: 10:11 Disposition: Admitted As Inpatient 68 Condition: Fair Clinical Impression: Cellulitis of right lower leg - Discharge Information Forms: ED Department Discharge Sepsis Event Note - Evaluation Sepsis Screening Result: No Definite Risk - Focused Exam Vital Signs: Vital Signs Temp Pulse Resp BP Pulse Ox 07/12/19 09:15 81 20 109/33 L 94 L 07/12/19 08:30 82 20 111/36 L 94 L 07/12/19 08:23 97.7 F 89 20 105/39 L 94 L Date Exam was Performed: 07/12/19 Time Exam was Performed: 10:39 - My Orders Last 24 Hours: My Active Orders 07/12/19 08:30 CULTURE BLOOD [BC] Stat CULTURE BLOOD [BC] Stat Blood Culture x2 Reflex Set [OM.PC] Stat 07/12/19 08:37 Peripheral IV Care [RC] . DIRECTED Sodium Chloride 0.9% [Saline Flush] 10 ml FLUSH Q8HR PRN Peripheral IV Insertion Adult [OM.PC] Routine 07/12/19 09:16 REFLEX LACTIC ACID YES OR NO [CHEM] Routine 07/12/19 09:52 Vancomycin 1 gm Sodium Chloride 0.9% [Normal Saline] 250 ml IV ONETIME 07/12/19 10:08 Patient Status [ADT] Routine - Assessment/Plan Last 24 Hours: My Active Orders 07/12/19 08:30 CULTURE BLOOD [BC] Stat CULTURE BLOOD [BC] Stat Blood Culture x2 Reflex Set [OM.PC] Stat 07/12/19 08:37 Peripheral IV Care [RC] . DIRECTED Sodium Chloride 0.9% [Saline Flush] 10 ml FLUSH Q8HR PRN Peripheral IV Insertion Adult [OM.PC] Routine 07/12/19 09:16 REFLEX LACTIC ACID YES OR NO [CHEM] Routine 07/12/19 09:52 Vancomycin 1 gm Sodium Chloride 0.9% [Normal Saline] 250 ml IV ONETIME 07/12/19 10:08 Patient Status [ADT] Routine
[2019-07-12 09:13] LABS: ANION GAP 15.9 mmol/L (5-15)
[2019-07-12] MEDS ORDERED: Sodium Chloride 0.9% 50 ML IV ONE (10:00)
[2019-07-12] MEDS ORDERED: Albuterol 0.083% 2.5 MG/3 ML Neb Soln NEB PRN (11:46)
[2019-07-12] MEDS ORDERED: Acetaminophen 325 MG Tab PO PRN (11:46)
[2019-07-12] MEDS ORDERED: Non-Formulary Medication 1 Each (Menthol [Biofreeze] 1 APPLIC) TOP PRN (11:46)
[2019-07-12] MEDS ORDERED: Albuterol 8 GM Inhaler INH PRN (11:46)
[2019-07-12] MEDS ORDERED: Ondansetron 4 MG Tab.DIS PO PRN (11:46)
[2019-07-12] MEDS ORDERED: Baclofen 10 MG Tab PO PRN (11:46)
[2019-07-12] MEDS ORDERED: Gabapentin 100 MG Cap PO ONE ×2 (11:52→14:45)
--- NOTE | 2019-07-12 12:03 | PCM.HP.2 ---
H&P History of Present Illness - General Date of Service: 07/12/19 Admit Problem/Dx: Admission Diagnosis/Problem Admission Diagnosis/Problem Cellulitis of foot Right Leg Pain Score (Numeric/FACES): 10 - Related Data Allergies/Adverse Reactions: Allergies Allergy/AdvReac Type Severity Reaction Status Date / Time penicillamine Allergy Severe Anaphylactic Verified 07/12/19 08:28 Shock Penicillins Allergy Severe Anaphylactic Verified 07/12/19 08:28 Shock Cephalosporins Allergy Unknown Cannot Verified 07/12/19 08:28 Remember aspirin Allergy Other Verified 07/12/19 08:28 Carbapenems Allergy Cannot Verified 07/12/19 08:28 Remember divalproex sodium Allergy Delusions Verified 07/12/19 08:28 [From Depakote] imipenem Allergy Cannot Verified 07/12/19 08:28 Remember Iodinated Contrast Media Allergy Chest Pain Verified 07/12/19 08:28 valproic acid Allergy Confusion Verified 07/12/19 08:28 Home Medications: Home Meds Cholecalciferol (Vitamin D3) [Vitamin D3] 1,000 unit PO DAILY@0800 09/27/13 [ History] Albuterol Sulfate [Albuterol Sulfate HFA] 2 puff INH Q4HR PRN 08/28/14 [History] Omeprazole [Prilosec] 40 mg PO BIDAC 01/20/15 [History] Venlafaxine [Effexor XR] 150 mg PO DAILY 04/12/15 [History] Docusate Sodium [Colace] 100 mg PO BID 06/27/15 [History] Albuterol [Proventil Neb Soln] 2.5 mg NEB QID PRN 02/25/16 [History] Potassium Chloride [K-Tab ER] 10 meq PO BID@0800,1800 02/25/16 [History] Dapsone 100 mg PO DAILY 06/19/16 [History] Metoprolol Tartrate 12.5 mg PO BID@0800,1800 11/08/16 [History] Roflumilast [Daliresp] 500 mcg PO DAILY #30 tablet 01/20/17 [Rx] Polyethylene Glycol 3350 [MiraLAX] 17 gm PO DAILY@08 05/21/17 [History] Furosemide [Lasix] 20 mg PO DAILY 12/09/17 [History] atorvaSTATin [Lipitor] 40 mg PO BEDTIME 02/24/18 [History] Hydrocodone/Acetaminophen [Hydrocodon-Acetaminophen 5-325] 1 tab PO TID PRN 04/15 [History] allopurinoL [Zyloprim] 200 mg PO DAILY 05/08/18 [History] Baclofen 2.5 mg PO TID PRN 07/11/18 [History] Levothyroxine [Synthroid] 100 mcg PO ACBREAKFAST 09/22/18 [History] Arformoterol [Brovana] 15 mcg INH BID 01/04/19 [History] Furosemide 20 mg PO MOWEFR@1200 06/12/19 [History] Menthol [Biofreeze] 1 applic TOP BID PRN 06/12/19 [History] Ondansetron [Zofran ODT] 4 mg PO Q4HR PRN 06/12/19 [History] Revefenacin [Yupelri] 1 each NEB DAILY@1300 06/12/19 [History] predniSONE [Prednisone] 10 mg PO DAILY 06/12/19 [History] Acetaminophen [Tylenol] 650 mg PO Q4H PRN 07/12/19 [History] Past Medical History HEENT History: Reports: Hard of Hearing, Impaired Vision Cardiovascular History: Reports: Afib, Heart Failure, Heart Valve Replacement, High Cholesterol, Hypertension, MS, SOB on Exertion, Other (See Below) Other Cardiovascular History: mitral stenosis,aortic stenosis,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,vasculitis Respiratory History: Reports: COPD, Pneumonia, Recurrent, SOB, Other (See Below) Other Respiratory History: pleural effusions, on home oxygen 3L at rest & 4L with activity Gastrointestinal History: Reports: Bowel Obstruction, Diverticulosis, GERD, Other (See Below) Other Gastrointestinal History: GI bleed Genitourinary History: Reports: Chronic Renal Insuffiency, Renal Disease, Other (See Below) Other Genitourinary History: acquired cyst of kidney 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 OB/BYN History: 6 daughters, live term births Musculoskeletal History: Reports: Arthritis, Back Pain, Chronic, Osteoporosis, Other (See Below) Other Musculoskeletal History: compression fracture of thoracolumbar vertebra Neurological History: Reports: Migraines Other Neuro History: new onset confusion starting 06/18/2016 Psychiatric History: Reports: Depression Endocrine/Metabolic History: Reports: Hypothyroidism, Osteoporosis Hematologic History: Reports: Anemia, Blood Transfusion(s) Immunologic History: Reports: Other (See Below) Other Immunologic History: chronic steroid use Oncologic (Cancer) History: Reports: Breast, Colon Dermatologic History: Reports: Venous Stasis Dermatitis, Other (See Below) Other Dermatologic History: discolored skin from chronic steroid use - Infectious Disease History Infectious Disease History: Reports: Chicken Pox, Measles, Mumps, Rheumatic Fever - Past Surgical History Head Surgeries/Procedures: Reports: None HEENT Surgical History: Reports: Cataract Surgery Cardiovascular Surgical History: Reports: Valve Replacement Respiratory Surgical History: Reports: Thoracentesis GI Surgical History: Reports: Colonoscopy, Colostomy, EGD Female Surgical History: Reports: Breast Biopsy, Mastectomy Endocrine Surgical History: Reports: None Neurological Surgical History: Reports: Laminectomy Musculoskeletal Surgical History: Reports: Other (See Below) Other Musculoskeletal Surgeries/Procedures:: spinal injections, laminectomy Oncologic Surgical History: Reports: Mastectomy Dermatological Surgical History: Reports: None Social & Family History - Family History Family Medical History: Noncontributory HEENT: Reports: None Cardiac: Reports: None Respiratory: Reports: None GI: Reports: None : Reports: None OBGYN: Reports: None Musculoskeletal: Reports: None Neurological: Reports: None Psychiatric: Reports: None Endocrine/Metabolic: Reports: None Hematologic: Reports: None Immunologic: Reports: None Dermatologic: Reports: None Oncologic: Reports: Colon, Pancreatic Other Oncologic Family History: parents had ca - Tobacco Use Smoking Status *Q: Former Smoker Used Tobacco, but Quit: Yes Month/Year Tobacco Last Used: 2014 - Caffeine Use Caffeine Use: Reports: Coffee, Soda - Recreational Drug Use Recreational Drug Use: No - Living Situation & Occupation Living situation: Reports: Occupation: Retired H&P Review of Systems - Review of Systems: Review Of Systems: See Below Exam - Exam Exam: See Below - Vital Signs Vital Signs: Last Vital Signs Temp 98.3 F 07/12/19 10:00 Pulse 84 07/12/19 10:00 Resp 20 07/12/19 10:00 BP 144/43 H 07/12/19 10:00 Pulse Ox 96 07/12/19 10:00 Weight: 107 lb - Patient Data Lab Results Last 24 hrs: Laboratory Results - last 24 hr 07/12/19 07/12/19 Range/Units 08:30 08:30 WBC 11.15 H (5.00-10.00) 10^3/uL RBC 3.23 L (3.80-5.50) 10^6/uL Hgb 10.4 L D (12.0-16.0) g/dL Hct 34.4 L (37.0-47.0) % MCV 106.5 H D (82.0-92.0) fL MCH 32.2 H (27.0-31.0) pg MCHC 30.2 L (32.0-36.0) g/dL RDW 18.1 H (11.5-14.5) % Plt Count 132 L (150-400) 10^3/uL MPV 12.1 H (7.4-10.4) fL Immature Gran % (Auto) 0.4 (0.0-5.0) % Neut % (Auto) 86.5 H (50.0-70.0) % Lymph % (Auto) 9.3 L (20.0-40.0) % Bland % (Auto) 2.9 (2.0-8.0) % Eos % (Auto) 0.5 L (1.0-3.0) % Baso % (Auto) 0.4 (0.0-1.0) % Immature Gran # (Auto) 0.04 (0.00-0.50) 10^3/uL Neut # (Auto) 9.65 H (2.50-7.00) 10^3/uL Lymph # (Auto) 1.04 (1.00-4.00) 10^3/uL Bland # (Auto) 0.32 (0.10-0.80) 10^3/uL Eos # (Auto) 0.06 L (0.10-0.30) 10^3/uL Baso # (Auto) 0.04 (0.00-0.10) 10^3/uL Atypical Lymphocytes Few Sodium 146 H (136-145) mmol/L Potassium 4.3 (3.3-5.3) mmol/L Chloride 105 (98-115) mmol/L Carbon Dioxide 29.4 (21.0-32.0) mmol/L Anion Gap 15.9 H (5-15) mmol/L BUN 27 H (6-25) mg/dL Creatinine 1.24 H (0.51-1.17) mg/dL Est Cr Clr Drug Dosing 25.12 mL/min Estimated GFR (MDRD) 41 mL/min Glucose 90 (75 - 99) mg/dL Lactic Acid 3.0 H (0.4-2.0) mmol/L Calcium 9.3 (8.7-10.3) mg/dL Result Diagrams: 07/12/19 08:30 07/12/19 08:30 Sepsis Event Note - Evaluation Sepsis Screening Result: No Definite Risk - Focused Exam Vital Signs: Vital Signs Temp Pulse Resp BP Pulse Ox 07/12/19 10:00 98.3 F 84 20 144/43 H 96 07/12/19 09:15 81 20 109/33 L 94 L 07/12/19 08:30 82 20 111/36 L 94 L 07/12/19 08:23 97.7 F 89 20 105/39 L 94 L Date Exam was Performed: 07/12/19 Time Exam was Performed: 11:31 Problem List Initiated/Reviewed/Updated: No Orders Last 24hrs: Active Orders 24 hr Category Date Time Status Patient Status [ADT] Routine ADT 07/12/19 10:08 Active Peripheral IV Care [RC] . DIRECTED Care 07/12/19 08:37 Active CULTURE BLOOD [BC] Stat Lab 07/12/19 08:30 Received CULTURE BLOOD [BC] Stat Lab 07/12/19 08:40 Received REFLEX LACTIC ACID YES OR NO [CHEM] Routine Lab 07/12/19 09:16 Received Sodium Chloride 0.9% [Saline Flush] Med 07/12/19 08:37 Active 10 ml FLUSH Q8HR PRN Blood Culture x2 Reflex Set [OM.PC] Stat Oth 07/12/19 08:30 Ordered Peripheral IV Insertion Adult [OM.PC] Routine Oth 07/12/19 08:37 Ordered Medication Orders Sodium Chloride (Saline Flush) 10 ml FLUSH Q8HR PRN PRN Reason: keep vein open Assessment/Plan Comment:: History of present illness Jossie is an 84-year-old patient was admitted through the ED due to right leg pain and redness distant with cellulitis. Patient has a complex medical history with multiple frequent hospitalizations with most recent hospitalization ~ 3 weeks ago due to RLL cellulitis with bacteremia with confirmed E. coli. She was treated with Rocephin and at discharge was switched from assisted living to NH in [facility] [place] for rehabilitation along with daily injections of Rocephin. During her recent inpatient stay she did develop cellulitis of her left upper extremity however this did resolve. She was recently sent back to [facility] in [place] having progressed quite nicely. Patient has no chest pain no cough no nausea vomiting or diarrhea. Pertinent ED findings/work-up White count, 11,000 neutrophilia,87% BUN 27/creatinine 1.24 Lactic acid, 3.0 Afebrile, heart rate 80s MAP 76 Blood cultures, vancomycin x1 Primary Hospital Problems Cellulitis RLL, with sepsis/? bacteremia, recurrent Significant antibiotic allergies Chronic/stable problems Atrial fibrillation, CVR, [id number] high, removed from anticoagulation due to GI bleed HFpEF with CAD,/HTN: Asymptomatic. Euvolemic volume status, BP controlled. Continue metoprolol, lisinopril, hold Lasix/KCL for now. Hx TAVR: Anticoagulation as above. Suyapa's granulomatosis, Stable. Continue dapsone and prednisone. Gout, On allopurinol, assess uric acid level Hyperlipidemia, statin Narayan Baseline hemoglobin 9-10. Continue iron-vitamin C. Hypothyroidism, thyroid replacement therapy Osteopenia: Last DEXA 2012, On Prolia, high risk 2/2 chronic glucocorticoid therapy Chronic back pain / Chronic opiate use: Stable. Painter prn and baclofen TID. Report worsening GI; Ostomy status: Hx colon resection for multiple adenomas. GERD, PPI Depression, SSRI Disposition/overall plan --We will accept patient inpatient status --Vancomycin pharmacy to dose/trough, blood cultures --Obtain CRP and ESR --Repeat CBC in AM --Repeat lactic acid today --Elevate RLL --Add low-dose gabapentin --Closely monitor for decreased blood pressure, fever, altered mental status. Hold diuretics today - Mortality Measure Prognosis:: Poor
[2019-07-12] MEDS: Acetaminophen/HYDROcodone 325-5 MG Tab PO PRN ×2 (12:08→19:09)
[2019-07-12] MEDS: Levothyroxine 50 MCG Tab PO SCH (12:32)
[2019-07-12] MEDS: Omeprazole 20 MG Cap.CR PO SCH ×2 (12:32→18:02)
[2019-07-12] MEDS: Arformoterol 15 MCG/2 ML Neb Soln INH SCH ×2 (12:56→20:51)
[2019-07-12] MEDS: Polyethylene Glycol 3350 Powder 17 GM Packet PO SCH (14:12)
[2019-07-12] MEDS: predniSONE 10 MG Tab PO SCH (14:12)
[2019-07-12] MEDS: Roflumilast 500 MCG Tab PO SCH (14:13)
[2019-07-12] MEDS: Allopurinol 100 MG Tab PO SCH (14:13)
[2019-07-12] MEDS: Docusate Sodium 100 MG Cap PO SCH ×2 (14:14→20:51)
[2019-07-12] MEDS: Venlafaxine 150 MG Cap.ER PO SCH (14:15)
[2019-07-12] MEDS: Metoprolol Tartrate 25 MG Tab PO SCH ×2 (14:19→18:02)
[2019-07-12] MEDS: DAPSONE 100 MG PO SCH (14:32)
[2019-07-12] MEDS: REVEFENACIN NEB SCH (15:45)
[2019-07-12] MEDS ORDERED: cefTRIAXone 1 GM Vial IVPUSH SCH (20:30)
[2019-07-12] MEDS: atorvaSTATin 40 MG Tab PO SCH (20:51)
[2019-07-13] MEDS: Polyethylene Glycol 3350 Powder 17 GM Packet PO SCH (08:41)
[2019-07-13] MEDS: Roflumilast 500 MCG Tab PO SCH (08:42)
[2019-07-13] MEDS: Levothyroxine 50 MCG Tab PO SCH (08:42)
[2019-07-13] MEDS: Allopurinol 100 MG Tab PO SCH (08:43)
[2019-07-13] MEDS: Metoprolol Tartrate 25 MG Tab PO SCH ×2 (08:44→17:56)
[2019-07-13] MEDS: Omeprazole 20 MG Cap.CR PO SCH ×2 (08:46→17:55)
[2019-07-13] MEDS: Docusate Sodium 100 MG Cap PO SCH ×2 (08:47→21:04)
[2019-07-13] MEDS: predniSONE 10 MG Tab PO SCH (08:47)
[2019-07-13] MEDS: Venlafaxine 150 MG Cap.ER PO SCH (08:47)
[2019-07-13] MEDS: Arformoterol 15 MCG/2 ML Neb Soln INH SCH ×2 (09:17→21:06)
[2019-07-13] MEDS: DAPSONE 100 MG PO SCH (09:42)
--- NOTE | 2019-07-13 10:12 | PCM.PN ---
- General Info Date of Service: 07/13/19 Functional Status: Reports: Tolerating Diet, Urinating. Denies: Pain Controlled , Ambulating - Review of Systems General: Reports: No Symptoms HEENT: Reports: No Symptoms Pulmonary: Reports: Shortness of Breath. Denies: Cough Cardiovascular: Reports: Dyspnea on Exertion, Edema. Denies: Chest Pain Gastrointestinal: Reports: No Symptoms Genitourinary: Reports: No Symptoms Musculoskeletal: Denies: Back Pain Skin: Reports: Dryness, Bruising Neurological: Reports: Gait Disturbance. Denies: Confusion, Numbness Psychiatric: Denies: Confusion - Patient Data Vitals - Most Recent: Last Vital Signs Temp 97.9 F 07/13/19 06:11 Pulse 91 07/13/19 08:44 Resp 24 H 07/13/19 06:11 BP 123/65 07/13/19 08:44 Pulse Ox 91 L 07/13/19 06:11 Weight - Most Recent: 107 lb I&O - Last 24 Hours: Intake & Output 07/12/19 07/13/19 07/13/19 22:59 06:59 14:59 Intake Total 350 150 Balance 350 150 Lab Results Last 24 Hours: Laboratory Results - last 24 hr 07/12/19 07/12/19 07/12/19 Range/Units 08:30 08:30 08:30 WBC (5.00-10.00) 10^3/uL RBC (3.80-5.50) 10^6/uL Hgb (12.0-16.0) g/dL Hct (37.0-47.0) % MCV (82.0-92.0) fL MCH (27.0-31.0) pg MCHC (32.0-36.0) g/dL RDW (11.5-14.5) % Plt Count (150-400) 10^3/uL MPV (7.4-10.4) fL Immature Gran % (Auto) (0.0-5.0) % Neut % (Auto) (50.0-70.0) % Lymph % (Auto) (20.0-40.0) % Bonner % (Auto) (2.0-8.0) % Eos % (Auto) (1.0-3.0) % Baso % (Auto) (0.0-1.0) % Immature Gran # (Auto) (0.00-0.50) 10^3/uL Neut # (Auto) (2.50-7.00) 10^3/uL Lymph # (Auto) (1.00-4.00) 10^3/uL Bonner # (Auto) (0.10-0.80) 10^3/uL Eos # (Auto) (0.10-0.30) 10^3/uL Baso # (Auto) (0.00-0.10) 10^3/uL ESR (0-20) mm/hr Lactic Acid Cancelled Uric Acid 5.0 (2.6-7.2) mg/dL C-Reactive Protein 7.1 H (0.0-0.9) mg/dL 07/12/19 07/12/19 07/12/19 Range/Units 08:30 08:30 11:45 WBC (5.00-10.00) 10^3/uL RBC (3.80-5.50) 10^6/uL Hgb (12.0-16.0) g/dL Hct (37.0-47.0) % MCV (82.0-92.0) fL MCH (27.0-31.0) pg MCHC (32.0-36.0) g/dL RDW (11.5-14.5) % Plt Count (150-400) 10^3/uL MPV (7.4-10.4) fL Immature Gran % (Auto) (0.0-5.0) % Neut % (Auto) (50.0-70.0) % Lymph % (Auto) (20.0-40.0) % Bonner % (Auto) (2.0-8.0) % Eos % (Auto) (1.0-3.0) % Baso % (Auto) (0.0-1.0) % Immature Gran # (Auto) (0.00-0.50) 10^3/uL Neut # (Auto) (2.50-7.00) 10^3/uL Lymph # (Auto) (1.00-4.00) 10^3/uL Bonner # (Auto) (0.10-0.80) 10^3/uL Eos # (Auto) (0.10-0.30) 10^3/uL Baso # (Auto) (0.00-0.10) 10^3/uL ESR 16 (0-20) mm/hr Lactic Acid 3.0 H 1.7 Uric Acid (2.6-7.2) mg/dL C-Reactive Protein (0.0-0.9) mg/dL 07/13/19 Range/Units 09:05 WBC 13.04 H (5.00-10.00) 10^3/uL RBC 2.92 L (3.80-5.50) 10^6/uL Hgb 9.3 L (12.0-16.0) g/dL Hct 31.2 L (37.0-47.0) % MCV 106.8 H (82.0-92.0) fL MCH 31.8 H (27.0-31.0) pg MCHC 29.8 L (32.0-36.0) g/dL RDW 17.9 H (11.5-14.5) % Plt Count 126 L (150-400) 10^3/uL MPV 11.7 H (7.4-10.4) fL Immature Gran % (Auto) 0.5 (0.0-5.0) % Neut % (Auto) 80.2 H (50.0-70.0) % Lymph % (Auto) 13.2 L (20.0-40.0) % Bonner % (Auto) 5.5 (2.0-8.0) % Eos % (Auto) 0.4 L (1.0-3.0) % Baso % (Auto) 0.2 (0.0-1.0) % Immature Gran # (Auto) 0.07 (0.00-0.50) 10^3/uL Neut # (Auto) 10.46 H (2.50-7.00) 10^3/uL Lymph # (Auto) 1.72 (1.00-4.00) 10^3/uL Bonner # (Auto) 0.72 (0.10-0.80) 10^3/uL Eos # (Auto) 0.05 L (0.10-0.30) 10^3/uL Baso # (Auto) 0.02 (0.00-0.10) 10^3/uL ESR Cancelled (0-20) mm/hr Lactic Acid Uric Acid (2.6-7.2) mg/dL C-Reactive Protein (0.0-0.9) mg/dL Erick Results Last 24 Hours: Microbiology 07/12/19 08:40 Aerobic Blood Culture - Final Blood - Venous - Lab Draw Anaerobic Blood Culture - Final 07/12/19 08:30 Aerobic Blood Culture - Final Blood - Venous Anaerobic Blood Culture - Final Med Orders - Current: Current Medications Acetaminophen (Tylenol) 650 mg PO Q4H PRN PRN Reason: Pain Hydrocodone Bitart/Acetaminophen (Wilson 325-5 Mg) 1 tab PO TID PRN PRN Reason: Pain Last Admin: 07/12/19 19:09 Dose: 1 tab Albuterol (Proventil Neb Soln) 2.5 mg NEB QID PRN PRN Reason: Shortness of Breath Albuterol (Ventolin Hfa) 0 gm INH Q4HR PRN PRN Reason: Shortness of Breath Last Admin: 07/12/19 14:06 Dose: 2 puff Allopurinol (Zyloprim) 200 mg PO DAILY [facility] Last Admin: 07/13/19 08:43 Dose: 200 mg Arformoterol Tartrate (Brovana) 15 mcg INH BID [facility] Last Admin: 07/13/19 09:17 Dose: 15 mcg Atorvastatin Calcium (Lipitor) 40 mg PO BEDTIME [facility] Last Admin: 07/12/19 20:51 Dose: 40 mg Baclofen (Lioresal) 2.5 mg PO TID PRN PRN Reason: back spasm Docusate Sodium (Colace) 100 mg PO BID [facility] Last Admin: 07/13/19 08:47 Dose: 100 mg Levothyroxine Sodium (Synthroid) 100 mcg PO ACBREAKFAST [facility] Last Admin: 07/13/19 08:42 Dose: 100 mcg Metoprolol Tartrate (Lopressor) 12.5 mg PO BID@0800,1800 [facility] Last Admin: 07/13/19 08:44 Dose: 12.5 mg Non-Formulary Medication (Menthol [Biofreeze]) 1 applic TOP BID PRN PRN Reason: Pain Omeprazole (Omeprazole) 40 mg PO BIDAC [facility] Last Admin: 07/13/19 08:46 Dose: 40 mg Ondansetron HCl (Zofran Odt) 4 mg PO Q4HR PRN PRN Reason: Nausea Dapsone 100mg Tablet (- Ptom) 1 each PO DAILY [facility] Last Admin: 07/13/19 09:42 Dose: 1 each Revefenacin [Yupelri ] Inhalation Solution 175mcg/3ml - Ptom 1 each NEB DAILY@ 1300 [facility] Last Admin: 07/12/19 15:45 Dose: Not Given Polyethylene Glycol (Miralax) 17 gm PO DAILY@08 [facility] Last Admin: 07/13/19 08:41 Dose: 17 gm Prednisone (Prednisone) 10 mg PO DAILY [facility] Last Admin: 07/13/19 08:47 Dose: 10 mg Roflumilast (Daliresp) 500 mcg PO DAILY [facility] Last Admin: 07/13/19 08:42 Dose: 500 mcg Sodium Chloride (Saline Flush) 10 ml FLUSH Q8HR PRN PRN Reason: keep vein open Venlafaxine HCl (Effexor Xr) 150 mg PO DAILY [facility] Last Admin: 07/13/19 08:47 Dose: 150 mg Discontinued Medications Ceftriaxone Sodium (Rocephin) 1 gm IVPUSH Q24H [facility] Last Admin: 07/12/19 20:52 Dose: 1 gm Gabapentin (Neurontin) 100 mg PO ONETIME ONE Stop: 07/12/19 14:46 Last Admin: 07/12/19 14:37 Dose: 100 mg Vancomycin HCl 1 gm/ Sodium (Chloride) 250 mls @ 167 mls/hr IV ONETIME ONE Stop: 07/12/19 11:21 Last Admin: 07/12/19 10:20 Dose: 167 mls/hr Sodium Chloride (Normal Saline) 50 mls @ 100 mls/hr IV ONETIME ONE Stop: 07/12/19 10:29 Last Admin: 07/12/19 10:20 Dose: 100 mls/hr Vancomycin HCl 0.75 gm/ Sodium (Chloride) 250 mls @ 187.5 mls/hr IV Q24H [facility] Vancomycin HCl (Pharmacy To Dose - Vancomycin) 1 dose .XX ASDIRECTED [facility] - Exam Quality Assessment: Supplemental Oxygen General: Alert, Oriented, Cooperative, No Acute Distress Neck: No JVD Lungs: Decreased Breath Sounds Cardiovascular: Murmurs GI/Abdominal Exam: Soft, Other (Ostomy) (Female) Exam: Deferred Back Exam: No: CVA Tenderness (L) Extremities: Pedal Edema (1-2+ pedal edema right lower extremity) Peripheral Pulses: 1+: Posterior Tibial (L), 2+: Posterior Tibial (R) Skin: Other (Thin extreme brawniness lower extremities, generalized edema right lower extremity, pitting, warm erythematous) Psy/Mental Status: Alert Sepsis Event Note - Evaluation Sepsis Screening Result: No Definite Risk - Focused Exam Vital Signs: Vital Signs Temp Pulse Pulse Resp BP BP Pulse Ox 07/13/19 08:44 91 123/65 07/13/19 06:11 97.9 F 84 24 H 106/43 L 91 L 07/13/19 03:00 98.3 F 67 24 H 107/44 L 92 L 07/12/19 23:00 96.8 F 67 28 H 112/45 L 91 L Date Exam was Performed: 07/13/19 Time Exam was Performed: 10:39 - Problem List Review Problem List Initiated/Reviewed/Updated: Yes - My Orders Last 24 Hours: My Active Orders 07/12/19 11:46 Acetaminophen [Tylenol] 650 mg PO Q4H PRN Acetaminophen/HYDROcodone [Wilson 325-5 MG] 1 tab PO TID PRN Albuterol [Proventil Neb Soln] 2.5 mg NEB QID PRN Albuterol [Ventolin HFA] 0 gm INH Q4HR PRN Baclofen [Lioresal] 2.5 mg PO TID PRN Menthol [Biofreeze] 1 applic TOP BID PRN Ondansetron [Zofran ODT] 4 mg PO Q4HR PRN 07/12/19 11:55 Resuscitation Status Routine 07/12/19 11:56 Oxygen Therapy [RC] ASDIRECTED 07/12/19 12:00 Arformoterol [Brovana] 15 mcg INH BID 07/12/19 12:30 Docusate Sodium [Colace] 100 mg PO BID Levothyroxine [Synthroid] 100 mcg PO ACBREAKFAST Metoprolol Tartrate [Lopressor] 12.5 mg PO BID@0800,1800 Omeprazole 40 mg PO BIDAC Patient's Own Medication [Ptom] 1 each PO DAILY Polyethylene Glycol 3350 [MiraLAX] 17 gm PO DAILY@08 Roflumilast [Daliresp] 500 mcg PO DAILY Venlafaxine [Effexor XR] 150 mg PO DAILY allopurinoL [Zyloprim] 200 mg PO DAILY predniSONE 10 mg PO DAILY 07/12/19 13:00 Patient's Own Medication [Ptom] 1 each NEB DAILY@1300 07/12/19 19:16 Vital Signs [RC] 0300,0700,1100,1500,1900,2300 07/12/19 21:00 atorvaSTATin [Lipitor] 40 mg PO BEDTIME 07/12/19 Dinner Regular Diet [DIET] 07/13/19 09:05 SEDIMENTATION RATE MANUAL [HEME] Routine - Plan Plan:: History of present illness Jossie is an 84-year-old patient was admitted through the ED due to right leg pain and redness distant with cellulitis. Patient has a complex medical history with multiple frequent hospitalizations with most recent hospitalization ~ 3 weeks ago due to RLL cellulitis with bacteremia with confirmed E. coli. She was treated with Rocephin and at discharge [facility] [place] for [facility] along with daily injections of Rocephin. During her recent inpatient stay she did develop cellulitis of her left upper extremity however this did resolve. She was recently sent back to [facility] in [place] having progressed quite nicely. Patient has no chest pain no cough no nausea vomiting or diarrhea. Pertinent ED findings/work-up White count, 11,000 neutrophilia,87% BUN 27/creatinine 1.24 Lactic acid, 3.0 Afebrile, heart rate 80s MAP 76 Blood cultures, vancomycin x1 Course to date, improved symptoms in leg however warm erythematous right foot, WBC is increasing however neutrophilia decreasing, blood cultures gram-negative rods, currently on ceftriaxone with type I hypersensitivity ertapenem however has received this safely in the past. Repeat lactate normal Primary Hospital Problems Rule out limb ischemia, Doppler study RLL Cellulitis right lower extremity with bacteremia, Peripheral vascular disease, venous Doppler study RLL Significant antibiotic allergies--hypersensitive type I Chronic/stable problems Atrial fibrillation, CVR, EC2UN4-PEEs high, removed from anticoagulation due to GI bleed HFpEF with CAD,/HTN: Asymptomatic. Euvolemic volume status, BP controlled. Continue metoprolol, lisinopril, hold Lasix/KCL for now. Hx TAVR: Anticoagulation as above. Suyapa's granulomatosis, Stable. Continue dapsone and prednisone. Gout, On allopurinol, assess uric acid level Hyperlipidemia, statin Narayan Baseline hemoglobin 9-10. Continue iron-vitamin C. Hypothyroidism, thyroid replacement therapy Osteopenia: Last DEXA 2012, On Prolia, high risk 2/2 chronic glucocorticoid therapy Chronic back pain / Chronic opiate use: Stable. Wilson prn and baclofen TID. Report worsening GI; Ostomy status: Hx colon resection for multiple adenomas. GERD, PPI Depression, SSRI Disposition/overall plan --Continue inpatient status --venous Doppler study RLL --Continued vancomycin, placed on ceftriaxone, awaiting sensitivity --Trend CRP and ESR --Repeat CBC in AM --Elevate RLL --Add low-dose gabapentin --Closely monitor for decreased blood pressure, fever, altered mental status. Hold diuretics today
--- NOTE | 2019-07-13 10:41 | US ---
[id number] US/US Venous Doppler LE Right EXAM: RIGHT LOWER EXTREMITY DUPLEX ULTRASOUND INDICATION: RIGHT LEG SWOLLEN AND PAINFUL. COMPARISON: None. DISCUSSION: The deep venous structures are compressible. No valvular incompetence or pulsatility seen. Spontaneity, phasicity and response to augmentation were noted by the technologist. IMPRESSION: 1. No evidence of deep vein thrombosis in the right lower extremity. Marlon Berry DO 07/13/19 1040 Thank you for allowing us to participate in the care of your patient.
[2019-07-13] MEDS: REVEFENACIN NEB SCH (13:07)
[2019-07-13] MEDS: Acetaminophen/HYDROcodone 325-5 MG Tab PO PRN (21:04)
[2019-07-13] MEDS: atorvaSTATin 40 MG Tab PO SCH (21:04)
[2019-07-13] MEDS: cefTRIAXone 1 GM Vial IVPUSH SCH (21:12)
[2019-07-13] MEDS: Sodium Chloride 0.9% 10 ML Syringe FLUSH PRN (21:20)
[2019-07-14] MEDS: Levothyroxine 50 MCG Tab PO SCH (07:39)
[2019-07-14] MEDS: Omeprazole 20 MG Cap.CR PO SCH ×2 (07:39→18:11)
[2019-07-14] MEDS: Polyethylene Glycol 3350 Powder 17 GM Packet PO SCH (07:43)
[2019-07-14] MEDS: Venlafaxine 150 MG Cap.ER PO SCH (08:28)
[2019-07-14] MEDS: predniSONE 10 MG Tab PO SCH (08:28)
[2019-07-14] MEDS: Allopurinol 100 MG Tab PO SCH (08:28)
[2019-07-14] MEDS: Docusate Sodium 100 MG Cap PO SCH ×2 (08:28→21:35)
[2019-07-14] MEDS: Roflumilast 500 MCG Tab PO SCH (08:28)
[2019-07-14] MEDS: Metoprolol Tartrate 25 MG Tab PO SCH ×2 (08:29→18:14)
[2019-07-14] MEDS: DAPSONE 100 MG PO SCH (08:30)
[2019-07-14] MEDS: Arformoterol 15 MCG/2 ML Neb Soln INH SCH ×2 (08:45→21:38)
[2019-07-14 09:59] LABS: ANION GAP 7.5 mmol/L (5-15)
--- NOTE | 2019-07-14 10:36 | PCM.PN ---
- General Info Date of Service: 07/14/19 Functional Status: Reports: Tolerating Diet, Urinating, New Symptoms (Provement in pain in leg and less edema and no discoloration in foot today), Incentive Spirometry. Denies: Pain Controlled, Ambulating - Review of Systems General: Reports: Weakness, Fatigue HEENT: Reports: No Symptoms Pulmonary: Reports: Shortness of Breath (Chronic shortness of breath). Denies: Cough, Sputum Cardiovascular: Reports: Edema (Edema right foot however improving) Gastrointestinal: Denies: Diarrhea, Nausea Genitourinary: Reports: Frequency. Denies: Dysuria Musculoskeletal: Denies: Back Pain Skin: Reports: Dryness Neurological: Reports: Pre-Existing Deficit, Gait Disturbance. Denies: Confusion Psychiatric: Reports: No Symptoms - Patient Data Vitals - Most Recent: Last Vital Signs Temp 96.7 F 07/14/19 06:22 Pulse 81 07/14/19 08:29 Resp 20 07/14/19 06:22 BP 161/60 H 07/14/19 08:29 Pulse Ox 93 L 07/14/19 06:22 Weight - Most Recent: 107 lb I&O - Last 24 Hours: Intake & Output 07/13/19 07/14/19 07/14/19 22:59 06:59 14:59 Intake Total 100 100 Output Total 350 600 Balance -250 -500 Lab Results Last 24 Hours: Laboratory Results - last 24 hr 07/13/19 07/13/19 07/14/19 Range/Units 09:05 20:45 09:30 WBC (5.00-10.00) 10^3/uL RBC (3.80-5.50) 10^6/uL Hgb (12.0-16.0) g/dL Hct (37.0-47.0) % MCV (82.0-92.0) fL MCH (27.0-31.0) pg MCHC (32.0-36.0) g/dL RDW (11.5-14.5) % Plt Count (150-400) 10^3/uL MPV (7.4-10.4) fL ESR 48 H (0-20) mm/hr Sodium 138 (136-145) mmol/L Potassium 3.3 (3.3-5.3) mmol/L Chloride 107 (98-115) mmol/L Carbon Dioxide 26.8 (21.0-32.0) mmol/L Anion Gap 7.5 (5-15) mmol/L BUN 39 H (6-25) mg/dL Creatinine 1.33 H (0.51-1.17) mg/dL Est Cr Clr Drug Dosing 23.42 mL/min Estimated GFR (MDRD) 38 mL/min Glucose 233 H (75 - 99) mg/dL Calcium 8.6 L (8.7-10.3) mg/dL Specimen Type Urinqcath Urine Color Yellow (YELLOW) Urine Appearance Cloudy H (CLEAR) Urine pH 7.0 (5.0-9.0) Ur Specific Moore 1.015 (1.005-1.030) Urine Protein 30 H (NEGATIVE) mg/dL Urine Glucose (UA) Negative (NEGATIVE) mg/dL Urine Ketones Negative (NEGATIVE) mg/dL Urine Occult Blood Moderate H (NEGATIVE) Urine Nitrite Positive H (NEGATIVE) Urine Bilirubin Negative (NEGATIVE) Urine Urobilinogen 0.2 (0.2-1.0) E.U./dL Ur Leukocyte Esterase Moderate H (NEGATIVE) Urine RBC 10-20 H (0-5) /HPF Urine WBC Semi-packed (0-5) /HPF Ur Epithelial Cells Rare /LPF Urine Bacteria Moderate H (NONE TO FEW) /HPF 07/14/19 Range/Units 09:30 WBC 9.74 (5.00-10.00) 10^3/uL RBC 2.46 L (3.80-5.50) 10^6/uL Hgb 7.7 L D (12.0-16.0) g/dL Hct 26.0 L (37.0-47.0) % MCV 105.7 H (82.0-92.0) fL MCH 31.3 H (27.0-31.0) pg MCHC 29.6 L (32.0-36.0) g/dL RDW 17.4 H (11.5-14.5) % Plt Count 112 L (150-400) 10^3/uL MPV 11.5 H (7.4-10.4) fL ESR (0-20) mm/hr Sodium (136-145) mmol/L Potassium (3.3-5.3) mmol/L Chloride (98-115) mmol/L Carbon Dioxide (21.0-32.0) mmol/L Anion Gap (5-15) mmol/L BUN (6-25) mg/dL Creatinine (0.51-1.17) mg/dL Est Cr Clr Drug Dosing mL/min Estimated GFR (MDRD) mL/min Glucose (75 - 99) mg/dL Calcium (8.7-10.3) mg/dL Specimen Type Urine Color (YELLOW) Urine Appearance (CLEAR) Urine pH (5.0-9.0) Ur Specific Moore (1.005-1.030) Urine Protein (NEGATIVE) mg/dL Urine Glucose (UA) (NEGATIVE) mg/dL Urine Ketones (NEGATIVE) mg/dL Urine Occult Blood (NEGATIVE) Urine Nitrite (NEGATIVE) Urine Bilirubin (NEGATIVE) Urine Urobilinogen (0.2-1.0) E.U./dL Ur Leukocyte Esterase (NEGATIVE) Urine RBC (0-5) /HPF Urine WBC (0-5) /HPF Ur Epithelial Cells /LPF Urine Bacteria (NONE TO FEW) /HPF Erick Results Last 24 Hours: Microbiology 07/12/19 08:40 Aerobic Blood Culture - Final Blood - Venous - Lab Draw Anaerobic Blood Culture - Final 07/12/19 08:30 Aerobic Blood Culture - Final Blood - Venous Anaerobic Blood Culture - Final Med Orders - Current: Current Medications Acetaminophen (Tylenol) 650 mg PO Q4H PRN PRN Reason: Pain Hydrocodone Bitart/Acetaminophen (Bricelyn 325-5 Mg) 1 tab PO TID PRN PRN Reason: Pain Last Admin: 07/13/19 21:04 Dose: 1 tab Albuterol (Proventil Neb Soln) 2.5 mg NEB QID PRN PRN Reason: Shortness of Breath Albuterol (Ventolin Hfa) 0 gm INH Q4HR PRN PRN Reason: Shortness of Breath Last Admin: 07/12/19 14:06 Dose: 2 puff Allopurinol (Zyloprim) 200 mg PO DAILY [facility] Last Admin: 07/14/19 08:28 Dose: 200 mg Arformoterol Tartrate (Brovana) 15 mcg INH BID [facility] Last Admin: 07/14/19 08:45 Dose: 15 mcg Atorvastatin Calcium (Lipitor) 40 mg PO BEDTIME [facility] Last Admin: 07/13/19 21:04 Dose: 40 mg Baclofen (Lioresal) 2.5 mg PO TID PRN PRN Reason: back spasm Ceftriaxone Sodium (Rocephin) 1 gm IVPUSH Q24H [facility] Last Admin: 07/13/19 21:12 Dose: 1 gm Docusate Sodium (Colace) 100 mg PO BID [facility] Last Admin: 07/14/19 08:28 Dose: 100 mg Levothyroxine Sodium (Synthroid) 100 mcg PO ACBREAKFAST [facility] Last Admin: 07/14/19 07:39 Dose: 100 mcg Metoprolol Tartrate (Lopressor) 12.5 mg PO BID@0800,1800 [facility] Last Admin: 07/14/19 08:29 Dose: 12.5 mg Non-Formulary Medication (Menthol [Biofreeze]) 1 applic TOP BID PRN PRN Reason: Pain Omeprazole (Omeprazole) 40 mg PO BIDAC [facility] Last Admin: 07/14/19 07:39 Dose: 40 mg Ondansetron HCl (Zofran Odt) 4 mg PO Q4HR PRN PRN Reason: Nausea Dapsone 100mg Tablet (- Ptom) 1 each PO DAILY [facility] Last Admin: 07/14/19 08:30 Dose: 1 each Revefenacin [Yupelri ] Inhalation Solution 175mcg/3ml - Ptom 1 each NEB DAILY@ 1300 [facility] Last Admin: 07/13/19 13:07 Dose: 1 each Polyethylene Glycol (Miralax) 17 gm PO DAILY@08 [facility] Last Admin: 07/14/19 07:43 Dose: Not Given Prednisone (Prednisone) 10 mg PO DAILY [facility] Last Admin: 07/14/19 08:28 Dose: 10 mg Roflumilast (Daliresp) 500 mcg PO DAILY [facility] Last Admin: 07/14/19 08:28 Dose: 500 mcg Sodium Chloride (Saline Flush) 10 ml FLUSH Q8HR PRN PRN Reason: keep vein open Last Admin: 07/13/19 21:20 Dose: 10 ml Venlafaxine HCl (Effexor Xr) 150 mg PO DAILY [facility] Last Admin: 07/14/19 08:28 Dose: 150 mg Discontinued Medications Ceftriaxone Sodium (Rocephin) 1 gm IVPUSH Q24H [facility] Last Admin: 07/12/19 20:52 Dose: 1 gm Gabapentin (Neurontin) 100 mg PO ONETIME ONE Stop: 07/12/19 14:46 Last Admin: 07/12/19 14:37 Dose: 100 mg Vancomycin HCl 1 gm/ Sodium (Chloride) 250 mls @ 167 mls/hr IV ONETIME ONE Stop: 07/12/19 11:21 Last Admin: 07/12/19 10:20 Dose: 167 mls/hr Sodium Chloride (Normal Saline) 50 mls @ 100 mls/hr IV ONETIME ONE Stop: 07/12/19 10:29 Last Admin: 07/12/19 10:20 Dose: 100 mls/hr Vancomycin HCl 0.75 gm/ Sodium (Chloride) 250 mls @ 187.5 mls/hr IV Q24H [facility] Vancomycin HCl (Pharmacy To Dose - Vancomycin) 1 dose .XX ASDIRECTED MARY ALICE - Exam Quality Assessment: Supplemental Oxygen General: Alert, Oriented, Cooperative. No: No Acute Distress Neck: Supple Lungs: Decreased Breath Sounds Cardiovascular: Irregular Rhythm GI/Abdominal Exam: Normal Bowel Sounds, Soft, No Organomegaly, No Distention (Female) Exam: Deferred Back Exam: No: CVA Tenderness (R) Extremities: Pedal Edema (Plus pedal edema right foot), Leg Pain. No: Slow Capillary Refill, Increased Warmth, Redness Peripheral Pulses: 2+: Radial (L), Radial (R) Skin: Other (Extreme brawniness skin lower extremities) Neurological: Normal Speech, Normal Tone. No: Normal Gait Sepsis Event Note - Evaluation Sepsis Screening Result: No Definite Risk - Focused Exam Vital Signs: Vital Signs Temp Pulse Pulse Resp BP BP Pulse Ox 07/14/19 08:29 81 161/60 H 07/14/19 06:22 96.7 F 71 20 162/63 H 93 L 07/14/19 03:00 98.7 F 73 20 150/64 H 93 L 07/13/19 22:47 97.3 F 75 20 136/56 L 91 L Date Exam was Performed: 07/15/19 Time Exam was Performed: 11:54 - Problem List Review Problem List Initiated/Reviewed/Updated: Yes - My Orders Last 24 Hours: My Active Orders 07/13/19 21:00 cefTRIAXone [Rocephin] 1 gm IVPUSH Q24H - Plan Plan:: History of present illness Jossie is an 84-year-old patient was admitted through the ED due to right leg pain and redness distant with cellulitis. Patient has a complex medical history with multiple frequent hospitalizations with most recent hospitalization ~ 3 weeks ago due to RLL cellulitis with bacteremia with confirmed E. coli. She was treated with Rocephin and at discharge was switched from assisted living to [facility] in [place] for rehabilitation along with daily injections of Rocephin. During her recent inpatient stay she did develop cellulitis of her left upper extremity however this did resolve. She was recently sent back to [facility] in [place] having progressed quite nicely. Patient has no chest pain no cough no nausea vomiting or diarrhea. Pertinent ED findings/work-up White count, 11,000 neutrophilia,87% BUN 27/creatinine 1.24 Lactic acid, 3.0 Afebrile, heart rate 80s MAP 76 Blood cultures, vancomycin x1 Hospital day #1 course to date, improved symptoms in leg however warm erythematous right foot, WBC is increasing however neutrophilia decreasing, blood cultures gram-negative rods, currently on ceftriaxone with type I hypersensitivity ertapenem however has received this safely in the past. Repeat lactate normal Hospital day #2 Venous Doppler, no evidence of DVT, much less erythema right lower foot and leg , c d still operator to right foot however worse on dependency. Improving inflammatory markers, map good, blood cultures gram-negative rods, awaiting sensitivity as previous hospitalization resistant to ceftriaxone Primary Hospital Problems Cellulitis right lower extremity with bacteremia, improving, Significant antibiotic allergies--hypersensitive type I Chronic/stable problems Atrial fibrillation, CVR, [id number] high, removed from anticoagulation due to GI bleed HFpEF with CAD,/HTN: Asymptomatic. Euvolemic volume status, BP controlled. Continue metoprolol, lisinopril, hold Lasix/KCL for now. Hx TAVR: Anticoagulation as above. Suyapa's granulomatosis, Stable. Continue dapsone and prednisone. Gout, On allopurinol, assess uric acid level Hyperlipidemia, statin Narayan Baseline hemoglobin 9-10. Continue iron-vitamin C. Hypothyroidism, thyroid replacement therapy Osteopenia: Last DEXA 2012, On Prolia, high risk 2/2 chronic glucocorticoid therapy Chronic back pain / Chronic opiate use: Stable. Bricelyn prn and baclofen TID. Report worsening GI; Ostomy status: Hx colon resection for multiple adenomas. GERD, PPI Depression, SSRI Disposition/overall plan --Continue inpatient status, likely SNF here at [place] due to high risk of re- admission --Continued Rocephin awaiting sensitivity --Trend CRP and ESR --Repeat CBC in AM --Elevate RLL --Closely monitor for decreased blood pressure, fever, altered mental status. Start back up on diuretics.
[2019-07-14] MEDS: REVEFENACIN NEB SCH (13:03)
[2019-07-14] MEDS: atorvaSTATin 40 MG Tab PO SCH (21:35)
[2019-07-14] MEDS: cefTRIAXone 1 GM Vial IVPUSH SCH (21:44)
[2019-07-14] MEDS: Sodium Chloride 0.9% 10 ML Syringe FLUSH PRN (21:53)
[2019-07-15] MEDS: Levothyroxine 50 MCG Tab PO SCH (07:45)
[2019-07-15] MEDS: Metoprolol Tartrate 25 MG Tab PO SCH (07:45)
[2019-07-15] MEDS: Omeprazole 20 MG Cap.CR PO SCH (07:45)
[2019-07-15] MEDS: Polyethylene Glycol 3350 Powder 17 GM Packet PO SCH (07:45)
[2019-07-15] MEDS: Roflumilast 500 MCG Tab PO SCH (08:51)
[2019-07-15] MEDS: Docusate Sodium 100 MG Cap PO SCH (08:51)
[2019-07-15] MEDS: predniSONE 10 MG Tab PO SCH (08:51)
[2019-07-15] MEDS: DAPSONE 100 MG PO SCH (08:51)
[2019-07-15] MEDS: Venlafaxine 150 MG Cap.ER PO SCH (08:51)
[2019-07-15] MEDS: Allopurinol 100 MG Tab PO SCH (08:51)
[2019-07-15] MEDS: Arformoterol 15 MCG/2 ML Neb Soln INH SCH (09:09)
[2019-07-15 11:08] VITALS: BP 150/67; PULSE 77
--- NOTE | 2019-07-15 11:53 | PCM.DCSUM1 ---
Discharge Summary - Discharge Data Discharge Date: 07/15/19 Discharge Disposition: DC/Tfer W/I Hosp To [facility] Condition: Fair - Referral to Home Health Primary Care Physician: Elvira Armijo MD - Discharge Plan Home Medications: Home Meds Cholecalciferol (Vitamin D3) [Vitamin D3] 1,000 unit PO DAILY@0800 09/27/13 [ History] Albuterol Sulfate [Albuterol Sulfate HFA] 2 puff INH Q4HR PRN 08/28/14 [History] Omeprazole [Prilosec] 40 mg PO BIDAC 01/20/15 [History] Venlafaxine [Effexor XR] 150 mg PO DAILY 04/12/15 [History] Docusate Sodium [Colace] 100 mg PO BID 06/27/15 [History] Albuterol [Proventil Neb Soln] 2.5 mg NEB QID PRN 02/25/16 [History] Potassium Chloride [K-Tab ER] 10 meq PO BID@0800,1800 02/25/16 [History] Dapsone 100 mg PO DAILY 06/19/16 [History] Metoprolol Tartrate 12.5 mg PO BID@0800,1800 11/08/16 [History] Roflumilast [Daliresp] 500 mcg PO DAILY #30 tablet 01/20/17 [Rx] Polyethylene Glycol 3350 [MiraLAX] 17 gm PO DAILY@08 05/21/17 [History] Furosemide [Lasix] 20 mg PO DAILY 12/09/17 [History] atorvaSTATin [Lipitor] 40 mg PO BEDTIME 02/24/18 [History] Hydrocodone/Acetaminophen [Hydrocodon-Acetaminophen 5-325] 1 tab PO TID PRN 04/15 [History] allopurinoL [Zyloprim] 200 mg PO DAILY 05/08/18 [History] Baclofen 2.5 mg PO TID PRN 07/11/18 [History] Levothyroxine [Synthroid] 100 mcg PO ACBREAKFAST 09/22/18 [History] Arformoterol [Brovana] 15 mcg INH BID 01/04/19 [History] Furosemide 20 mg PO MOWEFR@1200 06/12/19 [History] Menthol [Biofreeze] 1 applic TOP BID PRN 06/12/19 [History] Ondansetron [Zofran ODT] 4 mg PO Q4HR PRN 06/12/19 [History] Revefenacin [Yupelri] 1 each NEB DAILY@1300 06/12/19 [History] predniSONE [Prednisone] 10 mg PO DAILY 06/12/19 [History] Acetaminophen [Tylenol] 650 mg PO Q4H PRN 07/12/19 [History] Referrals: Elvira Armijo MD [Primary Care Provider] - - Discharge Summary/Plan Comment DC Time >30 min.: Yes Discharge Summary/Plan Comment: Final diagnosis Cellulitis right lower extremity with bacteremia, improving, Significant antibiotic allergies--hypersensitivity type I History summary 84-year-old patient was admitted through the ED due to right leg pain and redness distant with cellulitis. hospital course Hospital day #1 she had improved symptoms in leg however warm erythematous right foot, WBC was increasing however neutrophilia decreasing, blood cultures returned gram-negative rods, she was kept on ceftriaxone and seemed to improve in her pain redness and swelling of her right lower extremity. Repeated lactate back as normal. She never had any hemodynamic instability. On hospital day #2 she had a Aaron Doppler ultrasound of her RLL which demonstrated no evidence of DVT. Her erythremia and her tenderness continue to improve. Improving inflammatory markers, map good, blood cultures gram-negative rods sensitivity were still pending. ROS General: Denies: Fever, Chills, Malaise, Weakness HEENT: Reports: Hearing Changes (Ears hearing aids), Other. Denies: Dysphasia, Sinus Congestion, Sore Throat Pulmonary: Reports: Shortness of Breath (Chronic home oxygen stable). Denies: Wheezing, Cough, Sputum Cardiovascular: Reports: Edema (Right foot). Denies: Chest Pain, Palpitations, Dyspnea on Exertion, Orthopnea, PND, Syncope, Blood Pressure Problem Gastrointestinal: Denies: Abdominal Pain, Constipation, Diarrhea, Distension, Vomiting Genitourinary: Reports: No Symptoms Musculoskeletal: Reports: Joint Swelling (Right foot). Denies: Back Pain, Muscle Pain Skin: Reports: Dryness, Rash, Change in Color Psychiatric: Denies: Confusion, Agitation Neurological: Reports: Pre-Existing Deficit, Difficulty Walking. Denies: Confusion, Dizziness, Numbness, Syncope, Tingling Hematologic/Lymphatic: Reports: Easy Bruising Immunologic: Reports: No Symptoms Physical exam Quality Assessment: Supplemental Oxygen (Chronic home oxygen). No: DVT Prophylaxis General: Alert, Oriented, Cooperative. No: Mild Distress HEENT: Hearing Intact (Wears hearing aids), Nares Patent Neck: Supple. No: JVD, Thyromegaly Lungs: No: Normal Respiratory Effort, Crackles, Rales, Wheezing Cardiovascular: Regular Rhythm, Systolic Murmur (Pansystolic over entire precordium) GI/Abdominal Exam: Normal Bowel Sounds, Soft, No Mass, Other (Ostomy,). No: Distended, Guarding, Rigid, Tender (Female) Exam: Deferred Back Exam: No: CVA Tenderness (L), CVA Tenderness (R) Extremities: Pedal Edema (1-2+ pitting edema RL foot). No: Bucky's Sign Peripheral Pulses: 1+: Posterior Tibial (L), Posterior Tibial (R), Dorsalis Pedis (L), 2+: Brachial (R), Radial (L) Skin: Other (Less erythema right foot, dependent rubra) Neurological: Cranial Nerves Intact. No: Normal Gait Neuro Extensive - Mental Status: Alert, Oriented x3, Normal Mood/Affect Neuro Extensive - Motor, Sensory, Reflexes: CN II-XII Intact Psychiatric: Alert. No: Depressed, Agitated Disposition Patient will be transferred into swing bed therapy for ongoing IV antibiotics Anticipate discharge to LTC Thursday - General Info Date of Service: 07/15/19 Subjective Update: Below - Patient Data Vitals - Most Recent: Last Vital Signs Temp 97.9 F 07/15/19 11:00 Pulse 77 07/15/19 11:00 Resp 22 H 07/15/19 11:00 BP 150/67 H 07/15/19 11:00 Pulse Ox 93 L 07/15/19 11:00 Weight - Most Recent: 107 lb I&O - Last 24 hours: Intake & Output 07/14/19 07/15/19 07/15/19 22:59 06:59 14:59 Intake Total 420 50 Output Total 400 400 Balance 20 -350 TRENT Results - Last 24 hrs: Microbiology 07/12/19 08:40 Bacterial Identification - Preliminary Blood - Venous - Lab Draw Escherichia Coli 07/12/19 08:30 Bacterial Identification - Preliminary Blood - Arm, Left Escherichia Coli 07/12/19 20:30 Urine Culture - Final Urine, Quick Cath (In-Out) MIXED MAXX SUGGESTIVE OF CONTAMINATION. Med Orders - Current: Current Medications Discontinued Medications Acetaminophen (Tylenol) 650 mg PO Q4H PRN PRN Reason: Pain Hydrocodone Bitart/Acetaminophen (Sawyer 325-5 Mg) 1 tab PO TID PRN PRN Reason: Pain Last Admin: 07/13/19 21:04 Dose: 1 tab Albuterol (Proventil Neb Soln) 2.5 mg NEB QID PRN PRN Reason: Shortness of Breath Last Admin: 07/15/19 06:25 Dose: 2.5 mg Albuterol (Ventolin Hfa) 0 gm INH Q4HR PRN PRN Reason: Shortness of Breath Last Admin: 07/12/19 14:06 Dose: 2 puff Allopurinol (Zyloprim) 200 mg PO DAILY [facility] Last Admin: 07/15/19 08:51 Dose: 200 mg Arformoterol Tartrate (Brovana) 15 mcg INH BID [facility] Last Admin: 07/15/19 09:09 Dose: 15 mcg Atorvastatin Calcium (Lipitor) 40 mg PO BEDTIME [facility] Last Admin: 07/14/19 21:35 Dose: 40 mg Baclofen (Lioresal) 2.5 mg PO TID PRN PRN Reason: back spasm Ceftriaxone Sodium (Rocephin) 1 gm IVPUSH Q24H [facility] Last Admin: 07/12/19 20:52 Dose: 1 gm Ceftriaxone Sodium (Rocephin) 1 gm IVPUSH Q24H [facility] Last Admin: 07/14/19 21:44 Dose: 1 gm Docusate Sodium (Colace) 100 mg PO BID [facility] Last Admin: 07/15/19 08:51 Dose: 100 mg Gabapentin (Neurontin) 100 mg PO ONETIME ONE Stop: 07/12/19 14:46 Last Admin: 07/12/19 14:37 Dose: 100 mg Vancomycin HCl 1 gm/ Sodium (Chloride) 250 mls @ 167 mls/hr IV ONETIME ONE Stop: 07/12/19 11:21 Last Admin: 07/12/19 10:20 Dose: 167 mls/hr Sodium Chloride (Normal Saline) 50 mls @ 100 mls/hr IV ONETIME ONE Stop: 07/12/19 10:29 Last Admin: 07/12/19 10:20 Dose: 100 mls/hr Vancomycin HCl 0.75 gm/ Sodium (Chloride) 250 mls @ 187.5 mls/hr IV Q24H [facility] Levothyroxine Sodium (Synthroid) 100 mcg PO ACBREAKFAST [facility] Last Admin: 07/15/19 07:45 Dose: 100 mcg Metoprolol Tartrate (Lopressor) 12.5 mg PO BID@0800,1800 [facility] Last Admin: 07/15/19 07:45 Dose: 12.5 mg Omeprazole (Omeprazole) 40 mg PO BIDAC [facility] Last Admin: 07/15/19 07:45 Dose: 40 mg Ondansetron HCl (Zofran Odt) 4 mg PO Q4HR PRN PRN Reason: Nausea Dapsone 100mg Tablet (- Ptom) 1 each PO DAILY [facility] Last Admin: 07/15/19 08:51 Dose: 1 each Revefenacin [Yupelri ] Inhalation Solution 175mcg/3ml - Ptom 1 each NEB DAILY@ 1300 [facility] Last Admin: 07/14/19 13:03 Dose: 1 each Polyethylene Glycol (Miralax) 17 gm PO DAILY@08 [facility] Last Admin: 07/15/19 07:45 Dose: 17 gm Prednisone (Prednisone) 10 mg PO DAILY [facility] Last Admin: 07/15/19 08:51 Dose: 10 mg Roflumilast (Daliresp) 500 mcg PO DAILY [facility] Last Admin: 07/15/19 08:51 Dose: 500 mcg Sodium Chloride (Saline Flush) 10 ml FLUSH Q8HR PRN PRN Reason: keep vein open Last Admin: 07/14/19 21:53 Dose: 10 ml Vancomycin HCl (Pharmacy To Dose - Vancomycin) 1 dose .XX ASDIRECTED [facility] Venlafaxine HCl (Effexor Xr) 150 mg PO DAILY [facility] Last Admin: 07/15/19 08:51 Dose: 150 mg
== END 2019-07-15 11:29 | disposition swing bed (61) | DRG 603 ==
LOC: KA.ED 08:07 → KA.MS 10:08
PROVIDERS: ADMIT Family Medicine; ATTEND Family Medicine
DX: L03.115 Cellulitis of right lower limb (principal); I13.0 Hypertensive heart and chronic kidney disease with heart failure and stage 1 through stage 4 chronic kidney disease, or unspecified chronic kidney disease; R32 Unspecified urinary incontinence; R78.81 Bacteremia; I50.32 Chronic diastolic (congestive) heart failure; M31.30 Wegener's granulomatosis without renal involvement; H91.90 Unspecified hearing loss, unspecified ear; H54.7 Unspecified visual loss; Z79.52 Long term (current) use of systemic steroids; I48.91 Unspecified atrial fibrillation; J44.9 Chronic obstructive pulmonary disease, unspecified; K21.9 Gastro-esophageal reflux disease without esophagitis; N18.9 Chronic kidney disease, unspecified; I50.9 Heart failure, unspecified; M10.9 Gout, unspecified; E78.00 Pure hypercholesterolemia, unspecified; M85.80 Other specified disorders of bone density and structure, unspecified site; I08.0 Rheumatic disorders of both mitral and aortic valves; I73.9 Peripheral vascular disease, unspecified; Z87.01 Personal history of pneumonia (recurrent); M19.90 Unspecified osteoarthritis, unspecified site; M54.9 Dorsalgia, unspecified; G89.29 Other chronic pain; I25.10 Atherosclerotic heart disease of native coronary artery without angina pectoris; E78.5 Hyperlipidemia, unspecified; M81.0 Age-related osteoporosis without current pathological fracture; G43.909 Migraine, unspecified, not intractable, without status migrainosus; F32.9 Major depressive disorder, single episode, unspecified; E03.9 Hypothyroidism, unspecified; Z85.3 Personal history of malignant neoplasm of breast; Z85.038 Personal history of other malignant neoplasm of large intestine; Z88.6 Allergy status to analgesic agent; M81.8 Other osteoporosis without current pathological fracture; T38.0X5A Adverse effect of glucocorticoids and synthetic analogues, initial encounter; Z88.0 Allergy status to penicillin; Z88.1 Allergy status to other antibiotic agents; Z88.8 Allergy status to other drugs, medicaments and biological substances; I25.2 Old myocardial infarction; Z95.2 Presence of prosthetic heart valve; Z79.51 Long term (current) use of inhaled steroids; Z79.899 Other long term (current) drug therapy; Z91.041 Radiographic dye allergy status; Z98.49 Cataract extraction status, unspecified eye; Z93.3 Colostomy status; Z90.10 Acquired absence of unspecified breast and nipple; Z98.890 Other specified postprocedural states; Z87.891 Personal history of nicotine dependence; Z79.890 Hormone replacement therapy; Z99.81 Dependence on supplemental oxygen
CPT/HCPCS: 36415; 80048; 81001; 83605; 84550; 85025; 85027; 85651; 86140; 87040; 87077; 87086; 93971; 94640; 99284; 99284-25; A9270-GY; J0696; J3370; J7050; J7613-GY

== ENCOUNTER 2019-07-31 21:11 | Inpatient (IN) | payer MEDICARE, BC ==
[2019-07-31] MEDS ORDERED: methylPREDNISolone Sodium Succinate 125 MG/2 ML SDV IVPUSH ONE (21:21)
--- NOTE | 2019-07-31 21:58 | EDM.PDOC ---
ED HPI GENERAL MEDICAL PROBLEM - General Chief Complaint: Respiratory Problem Stated Complaint: SHORT OF BREATH Time Seen by Provider: 07/31/19 21:12 Source of Information: Reports: Patient, Family - History of Present Illness INITIAL COMMENTS - FREE TEXT/NARRATIVE: Somewhat of a mild inflicting stories in the onset. states that yesterday he noticed she was coughing and not herself. Jossie states may be a little bit but significantly worsened today. She was brought by private vehicle with her transporting this he felt it was less stressful to her. She had experienced increased shortness of breath at the 4 seasons, was given additional nebulizer treatment which brought her sats up temporarily only to drop again shortly thereafter. oNrma Seymour was contacted, as she is on- call for [place], advising the additional treatments and when that failed recommended transport for evaluation and treatment. She denies having fever. He is afebrile here. Onset: Gradual Duration: Day(s):, Chronic, Getting Worse Location: Reports: Chest Quality: Reports: Pressure Severity: Severe Improves with: Reports: Medication (But only lasts short term.) Worsens with: Reports: Breathing Associated Symptoms: Reports: Cough Treatments [employer]: Reports: Breathing Treatments, Oxygen - Related Data Allergies Allergy/AdvReac Type Severity Reaction Status Date / Time penicillamine Allergy Severe Anaphylactic Verified 07/31/19 21:41 Shock Penicillins Allergy Severe Anaphylactic Verified 07/31/19 21:41 Shock Cephalosporins Allergy Unknown Cannot Verified 07/31/19 21:41 Remember aspirin Allergy Other Verified 07/31/19 21:41 Carbapenems Allergy Cannot Verified 07/31/19 21:41 Remember divalproex sodium Allergy Delusions Verified 07/31/19 21:41 [From Depakote] imipenem Allergy Cannot Verified 07/31/19 21:41 Remember Iodinated Contrast Media Allergy Chest Pain Verified 07/31/19 21:41 valproic acid Allergy Confusion Verified 07/31/19 21:41 Home Meds: Home Meds Cholecalciferol (Vitamin D3) [Vitamin D3] 1,000 unit PO DAILY@0800 09/27/13 [ History] Albuterol Sulfate [Albuterol Sulfate HFA] 2 puff INH Q4HR PRN 08/28/14 [History] Omeprazole [Prilosec] 40 mg PO BIDAC 01/20/15 [History] Venlafaxine [Effexor XR] 150 mg PO DAILY 04/12/15 [History] Docusate Sodium [Colace] 100 mg PO BID 06/27/15 [History] Albuterol [Proventil Neb Soln] 2.5 mg NEB QID PRN 02/25/16 [History] Potassium Chloride [K-Tab ER] 10 meq PO BID@0800,1800 02/25/16 [History] Dapsone 100 mg PO DAILY 06/19/16 [History] Metoprolol Tartrate 12.5 mg PO BID@0800,1800 11/08/16 [History] Roflumilast [Daliresp] 500 mcg PO DAILY #30 tablet 01/20/17 [Rx] Polyethylene Glycol 3350 [MiraLAX] 17 gm PO DAILY@08 05/21/17 [History] Furosemide [Lasix] 20 mg PO DAILY 12/09/17 [History] atorvaSTATin [Lipitor] 40 mg PO BEDTIME 02/24/18 [History] Hydrocodone/Acetaminophen [Hydrocodon-Acetaminophen 5-325] 1 tab PO TID PRN 04/15 [History] allopurinoL [Zyloprim] 200 mg PO DAILY 05/08/18 [History] Baclofen 2.5 mg PO TID PRN 07/11/18 [History] Levothyroxine [Synthroid] 100 mcg PO ACBREAKFAST 09/22/18 [History] Arformoterol [Brovana] 15 mcg INH BID 01/04/19 [History] Furosemide 20 mg PO MOWEFR@1200 06/12/19 [History] Menthol [Biofreeze] 1 applic TOP BID PRN 06/12/19 [History] Ondansetron [Zofran ODT] 4 mg PO Q4HR PRN 06/12/19 [History] Revefenacin [Yupelri] 1 each NEB DAILY@1300 06/12/19 [History] predniSONE [Prednisone] 10 mg PO DAILY 06/12/19 [History] Acetaminophen [Tylenol] 650 mg PO Q4H PRN 07/12/19 [History] Meropenem [Merrem] 0.5 gm IV Q12H 10 Days #20 sdv 07/19/19 [Rx] Past Medical History HEENT History: Reports: Hard of Hearing, Impaired Vision Cardiovascular History: Reports: Afib, Heart Failure, Heart Valve Replacement, High Cholesterol, Hypertension, CA, SOB on Exertion, Other (See Below) Other Cardiovascular History: mitral stenosis,aortic stenosis,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,vasculitis Respiratory History: Reports: COPD, Pneumonia, Recurrent, SOB, Other (See Below) Other Respiratory History: pleural effusions, on home oxygen 3L at rest & 4L with activity Gastrointestinal History: Reports: Bowel Obstruction, Diverticulosis, GERD, Other (See Below) Other Gastrointestinal History: GI bleed Genitourinary History: Reports: Chronic Renal Insuffiency, Renal Disease, Other (See Below) Other Genitourinary History: acquired cyst of kidney [employer]OR OF [employer] History: Reports: Other [employer] History: 6 daughters, live term births Musculoskeletal History: Reports: Arthritis, Back Pain, Chronic, Osteoporosis, Other (See Below) Other Musculoskeletal History: compression fracture of thoracolumbar vertebra Neurological History: Reports: Migraines Other Neuro History: new onset confusion starting 06/18/2016 Psychiatric History: Reports: Depression Endocrine/Metabolic History: Reports: Hypothyroidism, Osteoporosis Hematologic History: Reports: Anemia, Blood Transfusion(s) Immunologic History: Reports: Other (See Below) Other Immunologic History: chronic steroid use Oncologic (Cancer) History: Reports: Breast, Colon Dermatologic History: Reports: Venous Stasis Dermatitis, Other (See Below) Other Dermatologic History: discolored skin from chronic steroid use - Infectious Disease History Infectious Disease History: Reports: Chicken Pox, Measles, Mumps, Rheumatic Fever - Past Surgical History Head Surgeries/Procedures: Reports: None HEENT Surgical History: Reports: Cataract Surgery Cardiovascular Surgical History: Reports: Valve Replacement Respiratory Surgical History: Reports: Thoracentesis GI Surgical History: Reports: Colonoscopy, Colostomy, EGD Female Surgical History: Reports: Breast Biopsy, Mastectomy Endocrine Surgical History: Reports: None Neurological Surgical History: Reports: Laminectomy Musculoskeletal Surgical History: Reports: Other (See Below) Other Musculoskeletal Surgeries/Procedures:: spinal injections, laminectomy Oncologic Surgical History: Reports: Mastectomy Dermatological Surgical History: Reports: None Social & Family History - Family History Family Medical History: Noncontributory HEENT: Reports: None Cardiac: Reports: None Respiratory: Reports: None GI: Reports: None : Reports: None OBGYN: Reports: None Musculoskeletal: Reports: None Neurological: Reports: None Psychiatric: Reports: None Endocrine/Metabolic: Reports: None Hematologic: Reports: None Immunologic: Reports: None Dermatologic: Reports: None Oncologic: Reports: Colon, Pancreatic Other Oncologic Family History: parents had ca - Caffeine Use Caffeine Use: Reports: Coffee, Soda - Living Situation & Occupation Living situation: Reports: Occupation: Retired ED ROS GENERAL - Review of Systems Review Of Systems: See Below Constitutional: Reports: Malaise HEENT: Reports: No Symptoms Respiratory: Reports: Shortness of Breath, Cough. Denies: Sputum Cardiovascular: Reports: No Symptoms. Denies: Chest Pain, Claudication, Edema Endocrine: Reports: No Symptoms GI/Abdominal: Reports: No Symptoms, Other (Ostomy has been normal) : Reports: No Symptoms. Denies: Dysuria, Frequency Musculoskeletal: Reports: No Symptoms Skin: Reports: No Symptoms, Other (Cellulitis has resolved) Neurological: Reports: No Symptoms Psychiatric: Reports: No Symptoms Hematologic/Lymphatic: Reports: Easy Bruising Immunologic: Reports: No Symptoms ED EXAM, GENERAL - Physical Exam Exam: See Below Exam Limited By: No Limitations General Appearance: Alert, WD/WN, Moderate Distress Ears: Normal External Exam, Normal Canal ( Mild cerumen on obstructive), Normal TMs. No: Hearing Grossly Normal Nose: Normal Inspection, Normal Mucosa, No Blood Throat/Mouth: Normal Inspection, Normal Lips, Normal Gums, Normal Oropharynx, No Airway Compromise Head: Atraumatic, Normocephalic Neck: Normal Inspection. No: Carotid Bruit Respiratory/Chest: Respiratory Distress, Rhonchi, Wheezing, Accessory Muscle Use Cardiovascular: Normal Peripheral Pulses, Regular Rate, Rhythm, No Edema, No Gallop, Systolic Murmur GI/Abdominal: Soft, No Organomegaly, Other (STEMI bag lower left) (Female) Exam: Deferred Rectal (Female) Exam: Deferred Back Exam: Normal Inspection, Full Range of Motion Extremities: Normal Inspection, Non-Tender. No: Bucky's Sign, Leg Pain, Redness Neurological: Alert, Oriented, CN II-XII Intact, Normal Cognition Psychiatric: Normal Affect, Normal Mood Skin Exam: Warm, Dry, Intact Lymphatic: No Adenopathy EKG INTERPRETATION Rhythm: NSR P-Wave: Present QRS: Normal QT: Normal Course - Vital Signs Last Recorded V/S: Last Vital Signs Temp 37.1 C 07/31/19 21:15 Pulse 88 07/31/19 21:15 Resp 24 H 07/31/19 21:15 BP 186/49 H 07/31/19 21:15 Pulse Ox 92 L 07/31/19 21:15 - Orders/Labs/Meds Orders: Active Orders 24 hr Category Date Time Status EKG Documentation Completion [RC] ASDIRECTED Care 07/31/19 21:20 Active Chest 1V Frontal [CR] Stat Exams 07/31/19 21:20 Ordered CULTURE BLOOD [BC] Stat Lab 07/31/19 21:15 Received Sodium Chloride 0.9% [Saline Flush] Med 07/31/19 22:00 Active 10 ml FLUSH Q8HR EKG 12 Lead [EK] Routine Ther 07/31/19 21:19 Ordered Medication Orders Sodium Chloride (Saline Flush) 10 ml FLUSH Q8HR MARY ALICE Last Admin: 07/31/19 22:01 Dose: 10 ml Labs: Laboratory Tests 07/31/19 07/31/19 Range/Units 21:20 21:20 WBC 10.98 H (5.00-10.00) 10^3/uL RBC 3.04 L (3.80-5.50) 10^6/uL Hgb 9.4 L D (12.0-16.0) g/dL Hct 30.9 L (37.0-47.0) % MCV 101.6 H D (82.0-92.0) fL MCH 30.9 (27.0-31.0) pg MCHC 30.4 L (32.0-36.0) g/dL RDW 18.0 H (11.5-14.5) % Plt Count 210 D (150-400) 10^3/uL MPV 11.9 H (7.4-10.4) fL Immature Gran % (Auto) 0.8 (0.0-5.0) % Neut % (Auto) 80.2 H (50.0-70.0) % Lymph % (Auto) 12.0 L (20.0-40.0) % Brantley % (Auto) 6.3 (2.0-8.0) % Eos % (Auto) 0.5 L (1.0-3.0) % Baso % (Auto) 0.2 (0.0-1.0) % Immature Gran # (Auto) 0.09 (0.00-0.50) 10^3/uL Neut # (Auto) 8.81 H (2.50-7.00) 10^3/uL Lymph # (Auto) 1.32 (1.00-4.00) 10^3/uL [place]ley # (Auto) 0.69 (0.10-0.80) 10^3/uL Eos # (Auto) 0.05 L (0.10-0.30) 10^3/uL Baso # (Auto) 0.02 (0.00-0.10) 10^3/uL Sodium 143 (136-145) mmol/L Potassium 4.4 (3.3-5.3) mmol/L Chloride 100 (98-115) mmol/L Carbon Dioxide 28.5 (21.0-32.0) mmol/L Anion Gap 18.9 H (5-15) mmol/L BUN 24 (6-25) mg/dL Creatinine 1.02 (0.51-1.17) mg/dL Est Cr Clr Drug Dosing 30.54 mL/min Estimated GFR (MDRD) 52 mL/min Glucose 104 H (75 - 99) mg/dL Calcium 9.2 (8.7-10.3) mg/dL Total Bilirubin 0.7 (0.2-1.0) mg/dL AST 16 (15-37) U/L ALT 15 (12-78) U/L Alkaline Phosphatase 82 (46-116) IU/L Creatine Kinase 34 (26-276) U/L CK-MB (CK-2) 1.00 (0.00-4.30) ng/mL Troponin I < 0.04 (0.00-0.070) ng/mL B-Natriuretic Peptide 422 H (0-100) pg/mL Total Protein 5.9 L (6.4-8.2) g/dL Albumin 3.11 (3.00-4.80) g/dL Meds: Medications Generic Name Dose Route Start Last Admin Trade Name Freq PRN Reason Stop Dose Admin Sodium Chloride 10 ml 07/31/19 22:00 07/31/19 22:01 Saline Flush FLUSH 10 ml Q8HR MARY ALICE Administration Discontinued Medications Generic Name Dose Route Start Last Admin Trade Name Freq PRN Reason Stop Dose Admin Methylprednisolone Sodium Succinate 125 mg 07/31/19 21:21 07/31/19 22:00 Solu-Medrol IVPUSH 07/31/19 21:22 125 mg ONETIME ONE Administration - Re-Assessments/Exams Free Text/Narrative Re-Assessment/Exam: 07/31/19 22:41 Contact via phone Norma Lion [facility], agrees to admission acute status. Exacerbation COPD, CHF, left pleural effusion. Departure - Departure Time of Disposition: 22:43 Disposition: Admitted As Inpatient 68 Condition: Poor Clinical Impression: CHF, Congestive heart failure, COPD exacerbation - Discharge Information *PRESCRIPTION DRUG MONITORING PROGRAM REVIEWED*: No *COPY OF PRESCRIPTION DRUG MONITORING REPORT IN PATIENT JACKI: No Referrals: Lev Lara NP [Primary Care Provider] - Forms: ED Department Discharge Additional Instructions: We will have Jossie admitted, acute status, Norma Seymour NP [facility] admitting. We discussed with Jossie as well as her , the aspects of ventilation/ positive pressure BiPAP which they are hesitant at this time. We also discussed Lyle catheter which she would decline at this time. We will have commode at bedside and absorbent pads overnight. Sepsis Event Note - Focused Exam Vital Signs: Vital Signs Temp Pulse Resp BP Pulse Ox 07/31/19 21:15 37.1 C 88 24 H 186/49 H 92 L Date Exam was Performed: 07/31/19 Time Exam was Performed: 22:11 - Problem List & Annotations (1) COPD exacerbation SNOMED Code(s): 773804511 Code(s): J44.1 - CHRONIC OBSTRUCTIVE PULMONARY DISEASE W (ACUTE) EXACERBATION Status: Acute Priority: High Current Visit: Yes (2) Pleural effusion SNOMED Code(s): 59905569 Code(s): J90 - PLEURAL EFFUSION, NOT ELSEWHERE CLASSIFIED Status: Acute Priority: High Current Visit: Yes (3) CHF, Congestive heart failure SNOMED Code(s): 30184469 Code(s): I50.9 - HEART FAILURE, UNSPECIFIED Status: Acute Priority: High Current Visit: Yes - Problem List Review Problem List Initiated/Reviewed/Updated: Yes - My Orders Last 24 Hours: My Active Orders 07/31/19 21:15 CULTURE BLOOD [BC] Stat 07/31/19 21:19 EKG 12 Lead [EK] Routine 07/31/19 21:20 EKG Documentation Completion [RC] ASDIRECTED Chest 1V Frontal [CR] Stat 07/31/19 22:00 Sodium Chloride 0.9% [Saline Flush] 10 ml FLUSH Q8HR - Assessment/Plan Last 24 Hours: My Active Orders 07/31/19 21:15 CULTURE BLOOD [BC] Stat 07/31/19 21:19 EKG 12 Lead [EK] Routine 07/31/19 21:20 EKG Documentation Completion [RC] ASDIRECTED Chest 1V Frontal [CR] Stat 07/31/19 22:00 Sodium Chloride 0.9% [Saline Flush] 10 ml FLUSH Q8HR Plan: Contact Norma Seymour NP [facility] landscape contractor. Agrees to acute admission 4, CHF, exacerbation COPD, and left pleural effusion.
[2019-07-31 22:01] LABS: ANION GAP 18.9 mmol/L (5-15); CHLORIDE,CL 100 mmol/L (98-115); SODIUM,NA 143 mmol/L (136-145)
[2019-07-31] MEDS: Sodium Chloride 0.9% 10 ML Syringe FLUSH SCH (22:01)
[2019-07-31] MEDS ORDERED: Furosemide 40 MG/4 ML VIAL IVPUSH ONE (22:29)
[2019-08-01] MEDS ORDERED: Albuterol 0.083% 2.5 MG/3 ML Neb Soln NEB ONE (05:34)
[2019-08-01] MEDS ORDERED: Albuterol 8 GM Inhaler INH PRN (06:42)
[2019-08-01] MEDS ORDERED: Ondansetron 4 MG Tab.DIS PO PRN (06:42)
[2019-08-01] MEDS ORDERED: Baclofen 10 MG Tab PO PRN (06:42)
[2019-08-01] MEDS ORDERED: Acetaminophen 325 MG Tab PO PRN (06:42)
[2019-08-01] MEDS: Sodium Chloride 0.9% 10 ML Syringe FLUSH SCH ×3 (07:15→22:22)
[2019-08-01 07:49] LABS: ANION GAP 16.1 mmol/L (5-15)
--- NOTE | 2019-08-01 07:50 | CR ---
[id number] RAD/RAD Chest PA or AP 1V EXAM: FRONTAL CHEST INDICATION: SHORT OF BREATH COMPARISON: July 18, 2019. DISCUSSION: There is stable cardiomegaly with mild to moderate congestive heart failure that is stable to slightly increased. A small left pleural effusion has not appreciably changed. Left upper cavity PICC tip overlying the cavoatrial junction. Prosthetic aortic valve. Right axillary clips. Prior kyphoplasties. IMPRESSION: 1. Mild to moderate congestive heart failure with pulmonary edema, central vascular congestion and a small left pleural effusion. These changes have mildly increased relative to the prior study. Kenneth Garcia MD 08/01/19 0749 Thank you for allowing us to participate in the care of your patient.
[2019-08-01] MEDS: Cholecalciferol (Vitamin D3) 25 MCG Tab PO SCH (08:01)
[2019-08-01] MEDS: Polyethylene Glycol 3350 Powder 17 GM Packet PO SCH (08:02)
[2019-08-01] MEDS: Roflumilast 500 MCG Tab PO SCH (08:02)
[2019-08-01] MEDS: Omeprazole 20 MG Cap.CR PO SCH ×2 (08:02→16:57)
[2019-08-01] MEDS: Allopurinol 100 MG Tab PO SCH (08:02)
[2019-08-01] MEDS: Docusate Sodium 100 MG Cap PO SCH ×2 (08:02→20:49)
[2019-08-01] MEDS: Levothyroxine 100 MCG Tab PO SCH (08:02)
[2019-08-01] MEDS: Potassium Chloride 10 MEQ Tab.ER PO SCH ×2 (08:02→17:30)
[2019-08-01] MEDS: Metoprolol Tartrate 25 MG Tab PO SCH ×2 (08:03→17:31)
[2019-08-01] MEDS: Arformoterol 15 MCG/2 ML Neb Soln INH SCH ×2 (09:21→20:52)
[2019-08-01] MEDS ORDERED: methylPREDNISolone Sodium Succinate 125 MG/2 ML SDV IVPUSH ONE (09:33)
[2019-08-01] MEDS: Furosemide 20 MG Tab PO SCH (10:00)
--- NOTE | 2019-08-01 10:58 | PCM.HP.2 ---
H&P History of Present Illness - General Date of Service: 08/01/19 Admit Problem/Dx: Admission Diagnosis/Problem Admission Diagnosis/Problem COPD, Severe chronic obstructive pulmonary disease Source of Information: Patient, Family, Old Records, Provider History Limitations: Reports: No Limitations - Related Data Allergies/Adverse Reactions: Allergies Allergy/AdvReac Type Severity Reaction Status Date / Time penicillamine Allergy Severe Anaphylactic Verified 08/01/19 00:57 Shock Penicillins Allergy Severe Anaphylactic Verified 08/01/19 00:57 Shock Cephalosporins Allergy Unknown Cannot Verified 08/01/19 00:57 Remember aspirin Allergy Other Verified 08/01/19 00:57 Carbapenems Allergy Cannot Verified 08/01/19 00:57 Remember divalproex sodium Allergy Delusions Verified 08/01/19 00:57 [From Depakote] imipenem Allergy Cannot Verified 08/01/19 00:57 Remember Iodinated Contrast Media Allergy Chest Pain Verified 08/01/19 00:57 valproic acid Allergy Confusion Verified 08/01/19 00:57 Home Medications: Home Meds Cholecalciferol (Vitamin D3) [Vitamin D3] 1,000 unit PO DAILY@0800 09/27/13 [ History] Albuterol Sulfate [Albuterol Sulfate HFA] 2 puff INH Q4HR PRN 08/28/14 [History] Omeprazole [Prilosec] 40 mg PO BIDAC 01/20/15 [History] Docusate Sodium [Colace] 100 mg PO BID 06/27/15 [History] Albuterol [Proventil Neb Soln] 2.5 mg NEB QID PRN 02/25/16 [History] Potassium Chloride [K-Tab ER] 10 meq PO BID@0800,1800 02/25/16 [History] Dapsone 100 mg PO DAILY 06/19/16 [History] Metoprolol Tartrate 12.5 mg PO BID@0800,1800 11/08/16 [History] Roflumilast [Daliresp] 500 mcg PO DAILY #30 tablet 01/20/17 [Rx] Polyethylene Glycol 3350 [MiraLAX] 17 gm PO DAILY@08 05/21/17 [History] Furosemide [Lasix] 20 mg PO DAILY 12/09/17 [History] atorvaSTATin [Lipitor] 40 mg PO BEDTIME 02/24/18 [History] Hydrocodone/Acetaminophen [Hydrocodon-Acetaminophen 5-325] 1 tab PO TID PRN 04/15 [History] allopurinoL [Zyloprim] 200 mg PO DAILY 05/08/18 [History] Baclofen 2.5 mg PO TID PRN 07/11/18 [History] Levothyroxine [Synthroid] 100 mcg PO ACBREAKFAST 09/22/18 [History] Arformoterol [Brovana] 15 mcg INH BID 01/04/19 [History] Furosemide 20 mg PO MOWEFR@1200 06/12/19 [History] Menthol [Biofreeze] 1 applic TOP BID PRN 06/12/19 [History] Ondansetron [Zofran ODT] 4 mg PO Q4HR PRN 06/12/19 [History] predniSONE [Prednisone] 10 mg PO DAILY 06/12/19 [History] Acetaminophen [Tylenol] 650 mg PO Q4H PRN 07/12/19 [History] Past Medical History HEENT History: Reports: Hard of Hearing, Impaired Vision Cardiovascular History: Reports: Afib, Heart Failure, Heart Valve Replacement, High Cholesterol, Hypertension, MO, SOB on Exertion, Other (See Below) Other Cardiovascular History: mitral stenosis,aortic stenosis,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,vasculitis Respiratory History: Reports: COPD, Pneumonia, Recurrent, SOB, Other (See Below) Other Respiratory History: pleural effusions, on home oxygen 3L at rest & 4L with activity Gastrointestinal History: Reports: Bowel Obstruction, Diverticulosis, GERD, Other (See Below) Other Gastrointestinal History: GI bleed Genitourinary History: Reports: Chronic Renal Insuffiency, Renal Disease, Other (See Below) Other Genitourinary History: acquired cyst of kidney [employer] History: Reports: Other OB/BYN History: 6 daughters, live term births Musculoskeletal History: Reports: Arthritis, Back Pain, Chronic, Osteoporosis, Other (See Below) Other Musculoskeletal History: compression fracture of thoracolumbar vertebra Neurological History: Reports: Migraines Other Neuro History: new onset confusion starting 06/18/2016 Psychiatric History: Reports: Depression Endocrine/Metabolic History: Reports: Hypothyroidism, Osteoporosis Hematologic History: Reports: Anemia, Blood Transfusion(s) Immunologic History: Reports: Other (See Below) Other Immunologic History: chronic steroid use Oncologic (Cancer) History: Reports: Breast, Colon Dermatologic History: Reports: Venous Stasis Dermatitis, Other (See Below) Other Dermatologic History: discolored skin from chronic steroid use - Infectious Disease History Infectious Disease History: Reports: Chicken Pox, Measles, Mumps, Rheumatic Fever - Past Surgical History Head Surgeries/Procedures: Reports: None HEENT Surgical History: Reports: Cataract Surgery Cardiovascular Surgical History: Reports: Valve Replacement Respiratory Surgical History: Reports: Thoracentesis GI Surgical History: Reports: Colonoscopy, Colostomy, EGD Female Surgical History: Reports: Breast Biopsy, Mastectomy Endocrine Surgical History: Reports: None Neurological Surgical History: Reports: Laminectomy Musculoskeletal Surgical History: Reports: Other (See Below) Other Musculoskeletal Surgeries/Procedures:: spinal injections, laminectomy Oncologic Surgical History: Reports: Mastectomy Dermatological Surgical History: Reports: None Social & Family History - Family History HEENT: Reports: None Cardiac: Reports: None Respiratory: Reports: None GI: Reports: None : Reports: None OBGYN: Reports: None Musculoskeletal: Reports: None Neurological: Reports: None Psychiatric: Reports: None Endocrine/Metabolic: Reports: None Hematologic: Reports: None Immunologic: Reports: None Dermatologic: Reports: None Oncologic: Reports: Colon, Pancreatic Other Oncologic Family History: parents had ca - Tobacco Use Smoking Status *Q: Never Smoker Second Hand Smoke Exposure: No - Caffeine Use Caffeine Use: Reports: Coffee - Recreational Drug Use Recreational Drug Use: No - Living Situation & Occupation Living situation: Reports: Occupation: Retired H&P Review of Systems - Review of Systems: Review Of Systems: See Below General: Reports: Malaise, Fatigue. Denies: Fever, Chills, Weakness, Decreased Appetite HEENT: Reports: Glasses. Denies: Ear Pain, Headaches, Rhinitis, Sinus Congestion, Sore Throat Pulmonary: Reports: Shortness of Breath, Wheezing, Pleuritic Chest Pain, Cough. Denies: Sputum Cardiovascular: Reports: Dyspnea on Exertion. Denies: Chest Pain, Edema, Lightheadedness Gastrointestinal: Denies: Abdominal Pain, Constipation, Diarrhea, Nausea, Vomiting Genitourinary: Reports: No Symptoms Skin: Reports: No Symptoms Neurological: Denies: Confusion, Dizziness, Headache Exam - Exam Exam: See Below - Vital Signs Vital Signs: Last Vital Signs Temp 96.0 F 08/01/19 06:56 Pulse 92 08/01/19 09:21 Resp 20 08/01/19 06:56 BP 142/68 H 08/01/19 08:03 Pulse Ox 94 L 08/01/19 09:21 Weight: 101 lb 3 oz - Exam Quality Assessment: Supplemental Oxygen (93% on 3 liters per nasal cannula ( baseline oxygen requirement)), Central Line/PICC (left arm). No: Urinary Catheter, DVT Prophylaxis General: Alert, Oriented (x3), Cooperative, Other (No acute distress) HEENT: Conjunctiva Clear, Hearing Intact, Mucosa Moist & Virgin, Posterior Pharynx Clear, TMs Clear, Glasses Neck: Supple, Trachea Midline. No: Lymphadenopathy Lungs: Normal Respiratory Effort, Rhonchi (throughout), Wheezing (expiratory wheezes throughout) Cardiovascular: Regular Rate, Regular Rhythm, Systolic Murmur (2/6 heard best at LUSB) GI/Abdominal Exam: Normal Bowel Sounds, Soft, Non-Tender, Other (colostomy to left abdomen with brown soft stool present) Extremities: No Pedal Edema Skin: Warm, Dry, Intact. No: Wound Neuro Extensive - Mental Status: Alert, Oriented x3, Normal Mood/Affect, Normal Cognition, Memory Intact Psychiatric: Alert, Normal Affect, Normal Mood - Patient Data Lab Results Last 24 hrs: Laboratory Results - last 24 hr 07/31/19 07/31/19 08/01/19 Range/Units 21:20 21:20 07:15 WBC 10.98 H 10.38 H (5.00-10.00) 10^3/uL RBC 3.04 L 3.08 L (3.80-5.50) 10^6/uL Hgb 9.4 L D 9.5 L (12.0-16.0) g/dL Hct 30.9 L 30.5 L (37.0-47.0) % MCV 101.6 H D 99.0 H (82.0-92.0) fL MCH 30.9 30.8 (27.0-31.0) pg MCHC 30.4 L 31.1 L (32.0-36.0) g/dL RDW 18.0 H 17.7 H (11.5-14.5) % Plt Count 210 D 185 (150-400) 10^3/uL MPV 11.9 H 12.4 H (7.4-10.4) fL Immature Gran % (Auto) 0.8 0.7 (0.0-5.0) % Neut % (Auto) 80.2 H 93.1 H (50.0-70.0) % Lymph % (Auto) 12.0 L 4.7 L (20.0-40.0) % [place] % (Auto) 6.3 1.3 L (2.0-8.0) % Eos % (Auto) 0.5 L 0.0 L (1.0-3.0) % Baso % (Auto) 0.2 0.2 (0.0-1.0) % Immature Gran # (Auto) 0.09 0.07 (0.00-0.50) 10^3/uL Neut # (Auto) 8.81 H 9.67 H (2.50-7.00) 10^3/uL Lymph # (Auto) 1.32 0.49 L (1.00-4.00) 10^3/uL [place] # (Auto) 0.69 0.13 (0.10-0.80) 10^3/uL Eos # (Auto) 0.05 L 0.00 L (0.10-0.30) 10^3/uL Baso # (Auto) 0.02 0.02 (0.00-0.10) 10^3/uL Sodium 143 (136-145) mmol/L Potassium 4.4 (3.3-5.3) mmol/L Chloride 100 (98-115) mmol/L Carbon Dioxide 28.5 (21.0-32.0) mmol/L Anion Gap 18.9 H (5-15) mmol/L BUN 24 (6-25) mg/dL Creatinine 1.02 (0.51-1.17) mg/dL Est Cr Clr Drug Dosing 30.54 mL/min Estimated GFR (MDRD) 52 mL/min Glucose 104 H (75 - 99) mg/dL Calcium 9.2 (8.7-10.3) mg/dL Total Bilirubin 0.7 (0.2-1.0) mg/dL AST 16 (15-37) U/L ALT 15 (12-78) U/L Alkaline Phosphatase 82 (46-116) IU/L Creatine Kinase 34 (26-276) U/L CK-MB (CK-2) 1.00 (0.00-4.30) ng/mL Troponin I < 0.04 (0.00-0.070) ng/mL B-Natriuretic Peptide 422 H (0-100) pg/mL Total Protein 5.9 L (6.4-8.2) g/dL Albumin 3.11 (3.00-4.80) g/dL 08/01/19 Range/Units 07:15 WBC (5.00-10.00) 10^3/uL RBC (3.80-5.50) 10^6/uL Hgb (12.0-16.0) g/dL Hct (37.0-47.0) % MCV (82.0-92.0) fL MCH (27.0-31.0) pg MCHC (32.0-36.0) g/dL RDW (11.5-14.5) % Plt Count (150-400) 10^3/uL MPV (7.4-10.4) fL Immature Gran % (Auto) (0.0-5.0) % Neut % (Auto) (50.0-70.0) % Lymph % (Auto) (20.0-40.0) % [place] % (Auto) (2.0-8.0) % Eos % (Auto) (1.0-3.0) % Baso % (Auto) (0.0-1.0) % Immature Gran # (Auto) (0.00-0.50) 10^3/uL Neut # (Auto) (2.50-7.00) 10^3/uL Lymph # (Auto) (1.00-4.00) 10^3/uL [place] # (Auto) (0.10-0.80) 10^3/uL Eos # (Auto) (0.10-0.30) 10^3/uL Baso # (Auto) (0.00-0.10) 10^3/uL Sodium 141 (136-145) mmol/L Potassium 4.5 (3.3-5.3) mmol/L Chloride 101 (98-115) mmol/L Carbon Dioxide 28.4 (21.0-32.0) mmol/L Anion Gap 16.1 H (5-15) mmol/L BUN 26 H (6-25) mg/dL Creatinine 1.04 (0.51-1.17) mg/dL Est Cr Clr Drug Dosing 29.96 mL/min Estimated GFR (MDRD) 51 mL/min Glucose 225 H (75 - 99) mg/dL Calcium 9.3 (8.7-10.3) mg/dL Total Bilirubin (0.2-1.0) mg/dL AST (15-37) U/L ALT (12-78) U/L Alkaline Phosphatase (46-116) IU/L Creatine Kinase (26-276) U/L CK-MB (CK-2) (0.00-4.30) ng/mL Troponin I (0.00-0.070) ng/mL B-Natriuretic Peptide (0-100) pg/mL Total Protein (6.4-8.2) g/dL Albumin (3.00-4.80) g/dL Result Diagrams: 08/01/19 07:15 08/01/19 07:15 Erick Results Last 24 hrs: Microbiology 08/01/19 08:35 Influenza Type A Antigen Screen - Final Nasopharyngeal Swab NEGATIVE INFLUENZA A VIRUS AG REFERENCE RANGE: NEGATIVE Influenza Type B Antigen Screen - Final NEGATIVE INFLUENZA B VIRUS AG REFERENCE RANGE: NEGATIVE EKG INTERPRETATION EKG Date: 07/31/19 Time: 21:33 Rhythm: NSR Rate (Beats/Min): 87 Glover: LAD-Left Glover Deviation P-Wave: Present QRS: LBBB ST-T: Normal QT: Normal Comparison: No Change Sepsis Event Note - Evaluation Sepsis Screening Result: No Definite Risk - Focused Exam Vital Signs: Vital Signs Temp Pulse Pulse Resp BP BP Pulse Ox 08/01/19 09:21 92 08/01/19 08:03 75 142/68 H 08/01/19 07:56 08/01/19 06:56 96.0 F 20 202/82 H 93 L 08/01/19 05:40 92 08/01/19 03:00 96.8 F 85 24 H 183/82 H 94 L 08/01/19 00:03 98.5 F 90 28 H 218/86 H 92 L 07/31/19 23:05 88 40 H 173/64 H 97 Pulse Ox 08/01/19 09:21 94 L 08/01/19 08:03 08/01/19 07:56 94 L 08/01/19 06:56 08/01/19 05:40 100 08/01/19 03:00 08/01/19 00:03 07/31/19 23:05 Date Exam was Performed: 08/01/19 Time Exam was Performed: 11:24 Problem List Initiated/Reviewed/Updated: Yes Orders Last 24hrs: Active Orders 24 hr Category Date Time Status Patient Status [ADT] Routine ADT 07/31/19 22:46 Active Communication Order [RC] 0900,2100 Care 08/01/19 00:55 Active Communication Order [RC] DAILY Care 08/01/19 00:59 Active Communication Order [RC] DAILY Care 08/01/19 01:01 Active Communication Order [RC] DAILY Care 08/01/19 01:08 Active Daily Weight [Height and Weight] [RC] DAILY Care 08/01/19 06:51 Active Evaluate for Home Oxygen [RT Oxygen Therapy w/Exercise] Care 08/01/19 09:25 Inactive [RC] ASDIRECTED Intake and Output [RC] 1400,2200,0600 Care 08/01/19 06:52 Active Oxygen Therapy [RC] ASDIRECTED Care 08/01/19 07:56 Active RT Aerosol Therapy [RC] ASDIRECTED Care 08/01/19 05:35 Active RT Aerosol Therapy [RC] ASDIRECTED Care 08/01/19 06:48 Active RT Aerosol Therapy [RC] ASDIRECTED Care 08/01/19 06:49 Active Consult to Case Management/Radio Communications Superintendent [CONS] Cons 08/01/19 09:35 Active Routine ADA Diabetic [[place] [employer] Diet] [DIET Diet 08/01/19 Breakfast Active ] CULTURE BLOOD [BC] Stat Lab 07/31/19 21:15 Received Acetaminophen [Tylenol] Med 08/01/19 06:42 Active 650 mg PO Q4H PRN Acetaminophen/HYDROcodone [[place] 325-5 MG] Med 08/01/19 06:42 Active 1 tab PO TID PRN Albuterol [Proventil Neb Soln] Med 08/01/19 06:49 Active 2.5 mg NEB Q4HRRT PRN Albuterol/Ipratropium [DuoNeb 3.0-0.5 MG/3 ML] Med 08/01/19 11:00 Active 3 ml NEB Q6HRRT Arformoterol [Brovana] Med 08/01/19 09:00 Active 15 mcg INH BID Baclofen [Lioresal] Med 08/01/19 06:42 Active 2.5 mg PO TID PRN Cholecalciferol (Vitamin D3) [Vitamin D3] Med 08/01/19 08:00 Active 25 mcg PO DAILY@0800 Dapsone Med 08/01/19 09:00 Active 100 mg PO DAILY Docusate Sodium [Colace] Med 08/01/19 09:00 Active 100 mg PO BID Furosemide [Lasix] Med 08/01/19 09:45 Active 20 mg PO DAILY Furosemide [Lasix] Med 08/01/19 12:00 Active 20 mg PO MOWEFR@1200 Levothyroxine [Synthroid] Med 08/01/19 07:30 Active 100 mcg PO ACBREAKFAST Menthol Med 08/01/19 06:42 Active 0 gm TOP BID PRN Metoprolol Tartrate [Lopressor] Med 08/01/19 08:00 Active 12.5 mg PO BID@0800,1800 Omeprazole Med 08/01/19 07:30 Active 40 mg PO BIDAC Ondansetron [Zofran ODT] Med 08/01/19 06:42 Active 4 mg PO Q4HR PRN Potassium Chloride [Klor-Con 10] Med 08/01/19 08:00 Active 10 meq PO BID@0800,1800 Roflumilast [Daliresp] Med 08/01/19 09:00 Active 500 mcg PO DAILY Sodium Chloride 0.9% [Saline Flush] Med 07/31/19 22:00 Active 10 ml FLUSH Q8HR allopurinoL [Zyloprim] Med 08/01/19 09:00 Active 200 mg PO DAILY atorvaSTATin [Lipitor] Med 08/01/19 21:00 Active 40 mg PO BEDTIME polyethylene glycoL 3350 [MiraLAX] Med 08/01/19 08:00 Active 17 gm PO DAILY@08 Code Status [Resuscitation Status] Routine Resus Stat 08/01/19 06:46 Ordered Medication Orders Acetaminophen (Tylenol) 650 mg PO Q4H PRN PRN Reason: Pain Hydrocodone Bitart/Acetaminophen ([place] 325-5 Mg) 1 tab PO TID PRN PRN Reason: Pain Albuterol (Proventil Neb Soln) 2.5 mg NEB Q4HRRT PRN PRN Reason: shortness of breath Albuterol/Ipratropium (Duoneb 3.0-0.5 Mg/3 Ml) 3 ml NEB Q6HRRT [facility] Allopurinol (Zyloprim) 200 mg PO DAILY [facility] Last Admin: 08/01/19 08:02 Dose: 200 mg Arformoterol Tartrate (Brovana) 15 mcg INH BID [facility] Last Admin: 08/01/19 09:21 Dose: 15 mcg Atorvastatin Calcium (Lipitor) 40 mg PO BEDTIME [facility] Baclofen (Lioresal) 2.5 mg PO TID PRN PRN Reason: back spasm Cholecalciferol (Vitamin D3) 25 mcg PO DAILY@0800 [facility] Last Admin: 08/01/19 08:01 Dose: 25 mcg Dapsone (Dapsone) 100 mg PO DAILY [facility] Last Admin: 08/01/19 10:13 Dose: Docusate Sodium (Colace) 100 mg PO BID [facility] Last Admin: 08/01/19 08:02 Dose: 100 mg Furosemide (Lasix) 20 mg PO DAILY [facility] Last Admin: 08/01/19 10:00 Dose: 20 mg Furosemide (Lasix) 20 mg PO MOWEFR@1200 [facility] Levothyroxine Sodium (Synthroid) 100 mcg PO ACBREAKFAST [facility] Last Admin: 08/01/19 08:02 Dose: 100 mcg Menthol (Menthol) 0 gm TOP BID PRN PRN Reason: Pain Metoprolol Tartrate (Lopressor) 12.5 mg PO BID@0800,1800 [facility] Last Admin: 08/01/19 08:03 Dose: 12.5 mg Omeprazole (Omeprazole) 40 mg PO BIDAC [facility] Last Admin: 08/01/19 08:02 Dose: 40 mg Ondansetron HCl (Zofran Odt) 4 mg PO Q4HR PRN PRN Reason: Nausea Polyethylene Glycol (Miralax) 17 gm PO DAILY@08 [facility] Last Admin: 08/01/19 08:02 Dose: 17 gm Potassium Chloride (Klor-Con 10) 10 meq PO BID@0800,1800 [facility] Last Admin: 08/01/19 08:02 Dose: 10 meq Roflumilast (Daliresp) 500 mcg PO DAILY [facility] Last Admin: 08/01/19 08:02 Dose: 500 mcg Sodium Chloride (Saline Flush) 10 ml FLUSH Q8HR [facility] Last Admin: 08/01/19 07:15 Dose: 10 ml Admin: 07/31/19 22:01 Dose: 10 ml Assessment/Plan Comment:: HPI: This 84 yo female presented to the ED via private vehicle for increased shortness of breath. Patient reports that she hadn't been feeling good for about 24 hours prior to admission. Was experiencing an increased productive cough, malaise, and shortness of breath. Had tried an extra albuterol nebulizer at the intermediate with short term improvement. Review of intermediate records note a low grade temp prior to arrival. Patient had just completed IV antibiotics for a RLE cellulitis with bacteremia. Pertinent ED work-up: WBC 10.9 with 80.2% neutrophils Hgb 9.4 Creatinine 1.02 BNP 422 Troponin <0.04 BC pending CXR-mild to moderate CHF with pulmonary edema, central vascular congestion, & small left pleural effusion-mildly increased from prior study (07/18/19) Solumedrol 125 mg IV x 1 Lasix 20 mg IV x 1 Primary assessment/plan: Mixed type COPD exacerbation. Solumedrol 80 mg IV x 1 today. Chronically on prednisone 10 mg daily. Continue DuoNebs QID (NGUYEN/SHAHRZAD), albuterol PRN. Continue Brovana BID (LABA). Had been switched from Yupelri (LAMA) 175 mcg neb daily to Pulmicort (corticosteroid) upon admission to the intermediate 2 weeks ago. Family wishes for patient to resume this medication as they felt she was doing better on it. Will have pharmacy evaluate if this was a coverage/cost issue. Influenza swab negative. Continue dapsone, daliresp. Chronic hypoxemic respiratory failure. Is on baseline oxygen of 3 liters per nasal cannula. Small left pleural effusion. HFpEF, stable. BNP at patient's baseline level. Resume regular oral lasix dosing. Daily weights, accurate I & O. Continue potassium supplementation. K 4.5. Secondary assessment/plan: Recent RLE cellulitis. Finished antibiotics on 07/29/19. No evidence of recurrence. HTN. Continue lopressor. Nonrheumatic mitral valve stenosis. Bilateral carotid artery disease. PVD. Nonrheumatic mitral regurgitation. Suyapa's granulomatosis with vasculitis. History of atrial fibrillation. S/P TAVR. Hypothyroidism. Continue levothyroxine. HLD. Continue lipitor. 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 Continue allopurinol. Depression history. Iron deficiency anemia d/t chronic blood loss. Hgb stable at 9.5. Esophageal reflux. Continue omeprazole. Constipation d/t opioid therapy. Continue colace, Miralax. History of GI bleed (2018). CKD Stage III. 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 Continue baclofen and hydrocodone PRN. Osteoporosis. Thoracolumbar vertebral compression fracture. Colostomy in place. PICC line in place to left arm. rn long term care steroid use. Macrocytosis. DVT prophylaxis. Score 4, however no treatment as has PVD (tino stockings contraindicated) and recent GI bleed. Overall plan: Discussion held with patient, , and daughter during rounds about [facility] prognosis being poor. Patient wishes to be a DNR/DNI as POLST states, however has now decided she wouldn't want BiPap therapy either. Patient and family in agreement to visit with social media intern regarding palliative care and hospice options. Likely will be discharged back to long-term care tomorrow. - Mortality Measure Prognosis:: Poor
[2019-08-01] MEDS: Albuterol/Ipratropium 3.0-0.5 MG/3 ML Neb Soln NEB SCH ×3 (11:36→22:22)
[2019-08-01] MEDS ORDERED: Furosemide 20 MG Tab PO SCH (12:00)
[2019-08-01] MEDS: Acetaminophen/HYDROcodone 325-5 MG Tab PO PRN (17:51)
[2019-08-01] MEDS: atorvaSTATin 40 MG Tab PO SCH (20:49)
[2019-08-02] MEDS: Acetaminophen/HYDROcodone 325-5 MG Tab PO PRN (01:40)
[2019-08-02] MEDS: Albuterol 0.083% 2.5 MG/3 ML Neb Soln NEB PRN ×2 (01:41→06:54)
[2019-08-02] MEDS ORDERED: guaiFENesin/Dextromethorphan 100-10 MG/5 ML Soln 5 ML Cup PO PRN (02:29)
[2019-08-02] MEDS: Albuterol/Ipratropium 3.0-0.5 MG/3 ML Neb Soln NEB SCH ×4 (05:09→23:37)
[2019-08-02] MEDS ORDERED: Furosemide 40 MG/4 ML VIAL IVPUSH ONE ×2 (05:19→07:56)
[2019-08-02] MEDS ORDERED: LORazepam 2 MG/ML SDV IVPUSH ONE (05:22)
[2019-08-02] MEDS: Sodium Chloride 0.9% 10 ML Syringe FLUSH SCH ×9 (05:30→23:30)
[2019-08-02 06:06] LABS: ANION GAP 14.7 mmol/L (5-15)
--- NOTE | 2019-08-02 08:08 | CR ---
[id number] RAD/RAD Chest PA or AP 1V EXAM: SINGLE VIEW CHEST. INDICATION: RESPIRATORY DISTRESS COMPARISON: CORRELATION IS MADE WITH THE EXAM OF JULY 31, 2019 FINDINGS: There appears to be mild edema. The cardiac silhouette is stable The prosthetic heart valve is seen The PICC line is identified Right-sided mastectomy changes are noted IMPRESSION: MILD CHF Georges Tristan MD 08/02/19 0838 Thank you for allowing us to participate in the care of your patient.
[2019-08-02 08:39] LABS: O2 DELIVERY DEVICE NON REBR MASK
[2019-08-02] MEDS: LORazepam 2 MG/ML SDV IVPUSH ONE ×2 (08:40→09:58)
[2019-08-02 08:41] LABS: BASE EXCESS ARTERIAL 5 mmol/L (-2-3); BICARBONATE,ARTERIAL 32.1 mmol/L (22-26); O2 FLOW RATE 15 L/min; O2 SATURATION ARTERIAL 99 % (95-98); PCO2 ARTERIAL 69 mmHG (35-45); PO2 ARTERIAL 188 mmHG (80-105)
[2019-08-02] MEDS: Metoprolol Tartrate 25 MG Tab PO SCH ×2 (09:03→19:19)
[2019-08-02] MEDS: Levothyroxine 100 MCG Tab PO SCH (09:58)
[2019-08-02] MEDS: Omeprazole 20 MG Cap.CR PO SCH ×2 (09:58→19:18)
[2019-08-02] MEDS: Potassium Chloride 10 MEQ Tab.ER PO SCH ×2 (09:59→19:19)
[2019-08-02] MEDS: Docusate Sodium 100 MG Cap PO SCH ×2 (09:59→21:06)
[2019-08-02] MEDS: Cholecalciferol (Vitamin D3) 25 MCG Tab PO SCH (09:59)
[2019-08-02] MEDS: Polyethylene Glycol 3350 Powder 17 GM Packet PO SCH (09:59)
[2019-08-02] MEDS: Allopurinol 100 MG Tab PO SCH (10:00)
[2019-08-02] MEDS: Venlafaxine 150 MG Cap.ER PO SCH (10:00)
[2019-08-02] MEDS: Roflumilast 500 MCG Tab PO SCH (10:00)
[2019-08-02] MEDS: Furosemide 20 MG Tab PO SCH (10:00)
[2019-08-02] MEDS: Arformoterol 15 MCG/2 ML Neb Soln INH SCH ×2 (10:37→21:23)
[2019-08-02] MEDS: Morphine 2 MG/ML SYRINGE IVPUSH PRN ×3 (11:00→17:09)
--- NOTE | 2019-08-02 11:31 | PCM.PN ---
- General Info Date of Service: 08/02/19 Subjective Update: With significant shortness of breath with altered mental status no ROS obtainable Functional Status: Denies: Tolerating Diet, Ambulating, Urinating - Patient Data Vitals - Most Recent: Last Vital Signs Temp 97.4 F 08/02/19 06:26 Pulse 121 H 08/02/19 09:03 Resp 32 H 08/02/19 06:26 BP 147/79 H 08/02/19 09:03 Pulse Ox 94 L 08/02/19 10:30 Weight - Most Recent: 101 lb 3 oz I&O - Last 24 Hours: Intake & Output 08/01/19 08/02/19 08/02/19 22:59 06:59 14:59 Intake Total 200 150 Output Total 250 200 Balance -50 -50 Lab Results Last 24 Hours: Laboratory Results - last 24 hr 08/02/19 08/02/19 08/02/19 Range/Units 05:35 05:35 08:25 ABG pH 7.27 L (7.35-7.45) ABG pCO2 69 H* (35-45) mmHG ABG pO2 188 H (80-105) mmHG ABG HCO3 32.1 H (22-26) mmol/L ABG Total CO2 34 H (23-27) mmol/L ABG O2 Saturation 99 H (95-98) % ABG Base Excess 5 H (-2-3) mmol/L O2 Delivery Device Non rebr mask Oxygen Flow Rate 15 L/min Sodium 142 (136-145) mmol/L Potassium 4.9 (3.3-5.3) mmol/L Chloride 101 (98-115) mmol/L Carbon Dioxide 31.2 (21.0-32.0) mmol/L Anion Gap 14.7 (5-15) mmol/L BUN 44 H (6-25) mg/dL Creatinine 1.16 (0.51-1.17) mg/dL Est Cr Clr Drug Dosing 26.86 mL/min Estimated GFR (MDRD) 45 mL/min BUN/Creatinine Ratio 37.93 Glucose 141 H (75 - 99) mg/dL Calcium 9.4 (8.7-10.3) mg/dL Phosphorus 4.3 (2.6-4.7) mg/dL Troponin I 0.08 H* (0.00-0.070) ng/mL B-Natriuretic Peptide 484 H (0-100) pg/mL Albumin 3.31 (3.00-4.80) g/dL Erick Results Last 24 Hours: Microbiology 07/31/19 21:15 Aerobic Blood Culture - Preliminary Blood NO GROWTH AFTER 1 DAY Anaerobic Blood Culture - Preliminary NO GROWTH AFTER 1 DAY 08/01/19 08:35 Influenza Type A Antigen Screen - Final Nasopharyngeal Swab NEGATIVE INFLUENZA A VIRUS AG REFERENCE RANGE: NEGATIVE Influenza Type B Antigen Screen - Final NEGATIVE INFLUENZA B VIRUS AG REFERENCE RANGE: NEGATIVE Med Orders - Current: Current Medications Acetaminophen (Tylenol) 650 mg PO Q4H PRN PRN Reason: Pain Hydrocodone Bitart/Acetaminophen ([place] 325-5 Mg) 1 tab PO TID PRN PRN Reason: Pain Last Admin: 08/02/19 01:40 Dose: 1 tab Albuterol (Proventil Neb Soln) 2.5 mg NEB Q4HRRT PRN PRN Reason: shortness of breath Last Admin: 08/02/19 06:54 Dose: 2.5 mg Albuterol/Ipratropium (Duoneb 3.0-0.5 Mg/3 Ml) 3 ml NEB Q6HRRT [facility] Last Admin: 08/02/19 05:09 Dose: 3 ml Allopurinol (Zyloprim) 200 mg PO DAILY [facility] Last Admin: 08/02/19 10:00 Dose: Not Given Arformoterol Tartrate (Brovana) 15 mcg INH BID [facility] Last Admin: 08/02/19 10:37 Dose: Not Given Atorvastatin Calcium (Lipitor) 40 mg PO BEDTIME [facility] Last Admin: 08/01/19 20:49 Dose: 40 mg Baclofen (Lioresal) 2.5 mg PO TID PRN PRN Reason: back spasm Cholecalciferol (Vitamin D3) 25 mcg PO DAILY@0800 [facility] Last Admin: 08/02/19 09:59 Dose: Not Given Docusate Sodium (Colace) 100 mg PO BID [facility] Last Admin: 08/02/19 09:59 Dose: Not Given Furosemide (Lasix) 20 mg PO DAILY [facility] Last Admin: 08/02/19 10:00 Dose: Not Given Furosemide (Lasix) 20 mg PO MOWEFR@1200 [facility] Last Admin: 08/01/19 12:37 Dose: 20 mg Guaifenesin/Phenylephrine HCl (Robitussin Dm) 10 ml PO Q4H PRN PRN Reason: Cough Last Admin: 08/02/19 02:56 Dose: 10 ml Levothyroxine Sodium (Synthroid) 100 mcg PO ACBREAKFAST [facility] Last Admin: 08/02/19 09:58 Dose: Not Given Metoprolol Tartrate (Lopressor) 12.5 mg PO BID@0800,1800 [facility] Last Admin: 08/02/19 09:03 Dose: 12.5 mg Morphine Sulfate (Morphine) 1 mg IVPUSH Q3H PRN PRN Reason: Shortness of Breath Last Admin: 08/02/19 11:00 Dose: 1 mg Omeprazole (Omeprazole) 40 mg PO BIDAC [facility] Last Admin: 08/02/19 09:58 Dose: Not Given Ondansetron HCl (Zofran Odt) 4 mg PO Q4HR PRN PRN Reason: Nausea Dapsone 100mg Tablet (- Ptom) 1 each PO DAILY [facility] Last Admin: 08/02/19 10:00 Dose: Not Given Polyethylene Glycol (Miralax) 17 gm PO DAILY@08 [facility] Last Admin: 08/02/19 09:59 Dose: Not Given Potassium Chloride (Klor-Con 10) 10 meq PO BID@0800,1800 [facility] Last Admin: 08/02/19 09:59 Dose: Not Given Roflumilast (Daliresp) 500 mcg PO DAILY [facility] Last Admin: 08/02/19 10:00 Dose: Not Given Sodium Chloride (Saline Flush) 10 ml FLUSH Q8HR [facility] Last Admin: 08/02/19 08:40 Dose: 10 ml Venlafaxine HCl (Effexor Xr) 150 mg PO DAILY [facility] Last Admin: 08/02/19 10:00 Dose: Not Given Discontinued Medications Albuterol (Proventil Neb Soln) 2.5 mg NEB ONETIME ONE Stop: 08/01/19 05:35 Last Admin: 08/01/19 05:40 Dose: 2.5 mg Albuterol (Ventolin Hfa) gm INH Q4HR PRN PRN Reason: Shortness of Breath Dapsone (Dapsone) 100 mg PO DAILY [facility] Last Admin: 08/01/19 10:13 Dose: Not Given Furosemide (Lasix) 20 mg IVPUSH NOW ONE Stop: 07/31/19 22:30 Last Admin: 07/31/19 22:38 Dose: 20 mg Furosemide (Lasix) 40 mg IVPUSH NOW ONE Stop: 08/02/19 05:20 Last Admin: 08/02/19 05:26 Dose: 40 mg Furosemide (Lasix) 20 mg IVPUSH NOW ONE Stop: 08/02/19 07:57 Last Admin: 08/02/19 08:38 Dose: 20 mg Heparin Sodium (Porcine) (Heparin Lock Flush 100 Units/Ml) Confirm Administered Dose 1,000 units .ROUTE .STK-MED ONE Stop: 07/31/19 22:33 Last Admin: 07/31/19 22:40 Dose: 1,000 units Heparin Sodium (Porcine) (Heparin Lock Flush 100 Units/Ml) 1,000 units IVPUSH ONETIME ONE Stop: 07/31/19 22:33 Last Admin: 07/31/19 22:32 Dose: Not Given Lorazepam (Ativan) 0.5 mg IVPUSH ONETIME ONE Stop: 08/02/19 05:23 Last Admin: 08/02/19 05:47 Dose: Not Given Lorazepam (Ativan) 0.5 mg IVPUSH ONETIME ONE Stop: 08/02/19 07:58 Last Admin: 08/02/19 09:58 Dose: Not Given Menthol (Menthol) 0 gm TOP BID PRN PRN Reason: Pain Methylprednisolone Sodium Succinate (Solu-Medrol) 125 mg IVPUSH ONETIME ONE Stop: 07/31/19 21:22 Last Admin: 07/31/19 22:00 Dose: 125 mg Methylprednisolone Sodium Succinate (Solu-Medrol) 80 mg IVPUSH ONETIME ONE Stop: 08/01/19 09:34 Last Admin: 08/01/19 10:00 Dose: 80 mg - Exam Quality Assessment: Supplemental Oxygen General: Alert (Open eyes on verbal command), Moderate Distress Neck: JVD Lungs: Crackles, Rales, Wheezing. No: Normal Respiratory Effort Cardiovascular: Irregular Rhythm, Tachycardia. No: Regular Rate GI/Abdominal Exam: Soft Extremities: No Pedal Edema Skin: Moist Neurological: No: Normal Speech Psy/Mental Status: Alert (And eyes on verbal command) Sepsis Event Note - Evaluation Sepsis Screening Result: No Definite Risk - Focused Exam Vital Signs: Vital Signs Temp Pulse Pulse Resp BP BP Pulse Ox 08/02/19 10:30 08/02/19 09:30 08/02/19 09:03 121 H 147/79 H 08/02/19 08:30 08/02/19 07:55 08/02/19 07:30 08/02/19 06:54 124 H 08/02/19 06:50 08/02/19 06:26 97.4 F 129 H 32 H 196/92 H 95 08/02/19 05:09 116 H 08/02/19 05:07 08/02/19 04:40 83 L 08/02/19 04:33 87 L 08/02/19 03:57 92 L 08/02/19 03:24 94 L 08/02/19 03:00 98.4 F 90 20 143/65 H 93 L 08/02/19 02:00 86 L 08/02/19 01:58 90 Pulse Ox Pulse Ox Pulse Ox 08/02/19 10:30 94 L 08/02/19 09:30 93 L 08/02/19 09:03 08/02/19 08:30 97 08/02/19 07:55 9 L 08/02/19 07:30 86 L 08/02/19 06:54 85 L 08/02/19 06:50 85 L 08/02/19 06:26 08/02/19 05:09 89 L 08/02/19 05:07 89 L 08/02/19 04:40 08/02/19 04:33 08/02/19 03:57 08/02/19 03:24 08/02/19 03:00 08/02/19 02:00 08/02/19 01:58 81 L Date Exam was Performed: 08/02/19 Time Exam was Performed: 11:11 - Problem List Review Problem List Initiated/Reviewed/Updated: Yes - My Orders Last 24 Hours: My Active Orders 08/02/19 10:49 Lyle Catheter Insertion [Insert Urinary Catheter] [OM.PC] Stat Morphine 1 mg IVPUSH Q3H PRN 08/02/19 10:50 Urinary Catheter Assessment [RC] ASDIRECTED - Plan Plan:: HPI: This 84 yo female presented to the ED via private vehicle for increased shortness of breath. Patient reports that she hadn't been feeling good for about 24 hours prior to admission. Was experiencing an increased productive cough, malaise, and shortness of breath. Had [facility] an [facility]izer [facility] with short term improvement. Review of prison records note a low grade temp prior to arrival. Patient had just completed IV antibiotics for a RLE cellulitis with bacteremia. Pertinent ED work-up: WBC 10.9 with 80.2% neutrophils Hgb 9.4 Creatinine 1.02 BNP 422 Troponin <0.04 BC pending CXR-mild to moderate CHF with pulmonary edema, central vascular congestion, & small left pleural effusion-mildly increased from prior study (07/18/19) Solumedrol 125 mg IV x 1 Lasix 20 mg IV x 1 Update, Overnight concerns with deterioration in patient's breathing status, overnight provider notified, orders for bladder scan, diuretics, minimal output, increased oxygen, Primary assessment/plan: --Acute on chronic respiratory failure, with acute respiratory acidosis, pH 7.27 , PCO2 69, HCO3 34, Family refusing noninvasive BiPaP, doubtful she can contain her own airway so likely not a good candidate at this time, morphine to decrease afterload and cardiac strain --atrial fibrillation, RVR, in the setting of increased cardiac demand, IV metoprolol --Elevatated troponin, 0.08, suspect type II 2/2 increased demand, hold off on EKG due to condition --HFpEF, worsened from her baseline, non invasive symptom management at this time --Mixed type COPD exacerbation. Solumedrol 80 mg yesterday, Chronically on prednisone 10 mg daily. Continue DuoNebs QID (NGUYEN/SHAHRZAD), albuterol PRN. Continue Brovana BID (LABA). Had been switched from Yupelri (LAMA) 175 mcg neb daily to Pulmicort (corticosteroid) upon [facility] 2 weeks ago. Family wishes for patient to resume. Continue dapsone, daliresp. --Small left pleural effusion. Secondary assessment/plan: Recent RLE cellulitis. Finished antibiotics on 07/29/19. No evidence of recurrence. HTN. Hold p.o. Lopressor For now, the metoprolol to RVR Nonrheumatic mitral valve stenosis. Bilateral carotid artery disease. PVD. Nonrheumatic mitral regurgitation. Suyapa's granulomatosis with vasculitis. S/P TAVR. Hypothyroidism. Hold p.o. levothyroxine for now HLD. Continue lipitor. 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 Hold p.o. allopurinol for now Depression history. Iron deficiency anemia d/t chronic blood loss. Hgb stable at 9.5. Esophageal reflux. Change to IV Protonix Constipation d/t opioid therapy. Hold laxatives for now History of GI bleed (2018). CKD Stage III. 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 Hold home haclofen and hydrocodone Osteoporosis. Thoracolumbar vertebral compression fracture. Colostomy in place. PICC line in place to left arm. senior living steroid use. Macrocytosis. DVT prophylaxis. Score 4, however no treatment as has PVD (tino stockings contraindicated) and recent GI bleed. Disposition/overall plan: Patient is in critical condition with acute respiratory failure, elevated cardio biomarkers. Discussion with family regarding critical condition and expected management. We will give morphine to help decrease afterload, help her respiratory status, oxygen support noninvasive. BiPAP discussed however it does not appear patient can protect her own airway and BiPAP likely deleterious at this time however we will see if her altered mental status improves today with diuresing. Lyle catheter. Hold all p.o. meds. IV metoprolol
[2019-08-02] MEDS: Morphine 2 MG/ML SYRINGE IVPUSH SCH ×4 (17:58→23:30)
[2019-08-02] MEDS: LORazepam 2 MG/ML SDV IVPUSH PRN ×2 (18:46→22:46)
--- NOTE | 2019-08-02 19:44 | PCM.SN ---
- Free Text/Narrative Note: Incoming call received from nursing with reports of significantly increased patient anxiety and worsening respiratory status despite IV Morphine. Patient assessed at bedside by this provider with nearly all family members present. Patient significantly tachypneic with accessory muscle use and increased anxiousness/restlessness secondary to poor respiratory status. Again discussed with family present at bedside regarding poor patient status. sherri notes they are awaiting the arrival of their final daughter from [place] and states that he feels patient is only "holding on" until last daughter arrives to say goodbye. Family again does not want transfer or further aggressive therapies including Bipap therapy but are in agreement with comfort measures and continued supplemental oxygen therapy. Will await further assessing change to "comfort care" until last daughter has arrived and then this can be further addressed per family preference. Will continue on Morphine 1 mg scheduled Q2H. Also discussed the risks and benefits of IV ativan use including the associated risk of respiratory depression. Family all acknowledge risk and are in agreement with medication use for the desire for better comfort measures as patient appears to be "suffering".
[2019-08-02] MEDS: atorvaSTATin 40 MG Tab PO SCH (21:06)
[2019-08-02] MEDS ORDERED: Acetaminophen 650 MG Supp RECTAL PRN (23:58)
[2019-08-03] MEDS: Morphine 2 MG/ML SYRINGE IVPUSH SCH ×5 (01:30→10:32)
[2019-08-03] MEDS: LORazepam 2 MG/ML SDV IVPUSH PRN (02:47)
[2019-08-03] MEDS: Albuterol/Ipratropium 3.0-0.5 MG/3 ML Neb Soln NEB SCH ×2 (05:48→10:57)
[2019-08-03] MEDS: Sodium Chloride 0.9% 10 ML Syringe FLUSH SCH ×2 (06:09→07:50)
[2019-08-03 06:14] VITALS: BP 92/54; PULSE 93
[2019-08-03] MEDS: Omeprazole 20 MG Cap.CR PO SCH (07:59)
[2019-08-03] MEDS: Polyethylene Glycol 3350 Powder 17 GM Packet PO SCH (07:59)
[2019-08-03] MEDS: Metoprolol Tartrate 25 MG Tab PO SCH (07:59)
[2019-08-03] MEDS: Potassium Chloride 10 MEQ Tab.ER PO SCH (07:59)
[2019-08-03] MEDS: Levothyroxine 100 MCG Tab PO SCH (07:59)
[2019-08-03] MEDS: Cholecalciferol (Vitamin D3) 25 MCG Tab PO SCH (08:00)
--- NOTE | 2019-08-03 09:03 | PCM.PN ---
- General Info Date of Service: 08/03/19 Subjective Update: Review of systems unobtainable as the patient is agonal breathing with expectant management Functional Status: Reports: Pain Controlled - Patient Data Vitals - Most Recent: Last Vital Signs Temp 96.9 F 08/03/19 06:12 Pulse 93 08/03/19 06:12 Resp 32 H 08/03/19 06:12 BP 92/54 L 08/03/19 06:12 Pulse Ox 96 08/03/19 06:12 Weight - Most Recent: 101 lb 3 oz I&O - Last 24 Hours: Intake & Output 08/02/19 08/03/19 08/03/19 22:59 06:59 14:59 Intake Total 0 Output Total 200 175 Balance -200 -175 Erick Results Last 24 Hours: Microbiology 07/31/19 21:15 Aerobic Blood Culture - Preliminary Blood NO GROWTH AFTER 2 DAYS Anaerobic Blood Culture - Preliminary NO GROWTH AFTER 2 DAYS Med Orders - Current: Current Medications Acetaminophen (Tylenol) 650 mg PO Q4H PRN PRN Reason: Pain Acetaminophen (Tylenol) 650 mg RECTAL Q4H PRN PRN Reason: Fever Last Admin: 08/03/19 00:07 Dose: 650 mg Hydrocodone Bitart/Acetaminophen ([place] 325-5 Mg) 1 tab PO TID PRN PRN Reason: Pain Last Admin: 08/02/19 01:40 Dose: 1 tab Albuterol (Proventil Neb Soln) 2.5 mg NEB Q4HRRT PRN PRN Reason: shortness of breath Last Admin: 08/02/19 06:54 Dose: 2.5 mg Albuterol/Ipratropium (Duoneb 3.0-0.5 Mg/3 Ml) 3 ml NEB Q6HRRT [facility] Last Admin: 08/03/19 05:48 Dose: 3 ml Allopurinol (Zyloprim) 200 mg PO DAILY [facility] Last Admin: 08/02/19 10:00 Dose: Not Given Arformoterol Tartrate (Brovana) 15 mcg INH BID [facility] Last Admin: 08/02/19 21:23 Dose: 15 mcg Atorvastatin Calcium (Lipitor) 40 mg PO BEDTIME [facility] Last Admin: 08/02/19 21:06 Dose: Not Given Baclofen (Lioresal) 2.5 mg PO TID PRN PRN Reason: back spasm Cholecalciferol (Vitamin D3) 25 mcg PO DAILY@0800 [facility] Last Admin: 08/03/19 08:00 Dose: Not Given Docusate Sodium (Colace) 100 mg PO BID [facility] Last Admin: 08/02/19 21:06 Dose: Not Given Furosemide (Lasix) 20 mg PO DAILY [facility] Last Admin: 08/02/19 10:00 Dose: Not Given Furosemide (Lasix) 20 mg PO MOWEFR@1200 [facility] Last Admin: 08/01/19 12:37 Dose: 20 mg Guaifenesin/Phenylephrine HCl (Robitussin Dm) 10 ml PO Q4H PRN PRN Reason: Cough Last Admin: 08/02/19 02:56 Dose: 10 ml Levothyroxine Sodium (Synthroid) 100 mcg PO ACBREAKFAST [facility] Last Admin: 08/03/19 07:59 Dose: Not Given Lorazepam (Ativan) 0.5 mg IVPUSH Q4H PRN PRN Reason: anxiety Last Admin: 08/03/19 02:47 Dose: 0.5 mg Metoprolol Tartrate (Lopressor) 12.5 mg PO BID@0800,1800 [facility] Last Admin: 08/03/19 07:59 Dose: Not Given Morphine Sulfate (Morphine) 1 mg IVPUSH Q2H [facility] Last Admin: 08/03/19 07:51 Dose: 1 mg Omeprazole (Omeprazole) 40 mg PO BIDAC [facility] Last Admin: 08/03/19 07:59 Dose: Not Given Ondansetron HCl (Zofran Odt) 4 mg PO Q4HR PRN PRN Reason: Nausea Dapsone 100mg Tablet (- Ptom) 1 each PO DAILY [facility] Last Admin: 08/02/19 10:00 Dose: Not Given Polyethylene Glycol (Miralax) 17 gm PO DAILY@08 [facility] Last Admin: 08/03/19 07:59 Dose: Not Given Potassium Chloride (Klor-Con 10) 10 meq PO BID@0800,1800 [facility] Last Admin: 08/03/19 07:59 Dose: Not Given Roflumilast (Daliresp) 500 mcg PO DAILY [facility] Last Admin: 08/02/19 10:00 Dose: Not Given Sodium Chloride (Saline Flush) 10 ml FLUSH Q8HR [facility] Last Admin: 08/03/19 07:50 Dose: 10 ml Venlafaxine HCl (Effexor Xr) 150 mg PO DAILY [facility] Last Admin: 08/02/19 10:00 Dose: Not Given Discontinued Medications Albuterol (Proventil Neb Soln) 2.5 mg NEB ONETIME ONE Stop: 08/01/19 05:35 Last Admin: 08/01/19 05:40 Dose: 2.5 mg Albuterol (Ventolin Hfa) gm INH Q4HR PRN PRN Reason: Shortness of Breath Dapsone (Dapsone) 100 mg PO DAILY [facility] Last Admin: 08/01/19 10:13 Dose: Not Given Furosemide (Lasix) 20 mg IVPUSH NOW ONE Stop: 07/31/19 22:30 Last Admin: 07/31/19 22:38 Dose: 20 mg Furosemide (Lasix) 40 mg IVPUSH NOW ONE Stop: 08/02/19 05:20 Last Admin: 08/02/19 05:26 Dose: 40 mg Furosemide (Lasix) 20 mg IVPUSH NOW ONE Stop: 08/02/19 07:57 Last Admin: 08/02/19 08:38 Dose: 20 mg Heparin Sodium (Porcine) (Heparin Lock Flush 100 Units/Ml) Confirm Administered Dose 1,000 units .ROUTE .STK-MED ONE Stop: 07/31/19 22:33 Last Admin: 07/31/19 22:40 Dose: 1,000 units Heparin Sodium (Porcine) (Heparin Lock Flush 100 Units/Ml) 1,000 units IVPUSH ONETIME ONE Stop: 07/31/19 22:33 Last Admin: 07/31/19 22:32 Dose: Not Given Lorazepam (Ativan) 0.5 mg IVPUSH ONETIME ONE Stop: 08/02/19 05:23 Last Admin: 08/02/19 05:47 Dose: Not Given Lorazepam (Ativan) 0.5 mg IVPUSH ONETIME ONE Stop: 08/02/19 07:58 Last Admin: 08/02/19 09:58 Dose: Not Given Menthol (Menthol) 0 gm TOP BID PRN PRN Reason: Pain Methylprednisolone Sodium Succinate (Solu-Medrol) 125 mg IVPUSH ONETIME ONE Stop: 07/31/19 21:22 Last Admin: 07/31/19 22:00 Dose: 125 mg Methylprednisolone Sodium Succinate (Solu-Medrol) 80 mg IVPUSH ONETIME ONE Stop: 08/01/19 09:34 Last Admin: 08/01/19 10:00 Dose: 80 mg Morphine Sulfate (Morphine) 1 mg IVPUSH Q3H PRN PRN Reason: Shortness of Breath Last Admin: 08/02/19 17:09 Dose: 1 mg - Exam Quality Assessment: Supplemental Oxygen General: No Acute Distress, Obtunded. No: Alert, Oriented Lungs: Clear to Auscultation, Other (Agonal breathing) Cardiovascular: No: Tachycardia Extremities: Other (Mottling bilateral knees) Sepsis Event Note - Evaluation Sepsis Screening Result: No Definite Risk - Focused Exam Vital Signs: Vital Signs Temp Temp Pulse Resp BP Pulse Ox Pulse Ox 08/03/19 06:12 96.9 F 93 32 H 92/54 L 96 08/03/19 05:48 96 97 08/03/19 05:45 97 08/03/19 01:30 98.2 F 08/03/19 00:07 100.2 F 08/02/19 23:45 106 H 90 L 08/02/19 23:30 100.2 F 103 H 36 H 90 L 08/02/19 21:35 113 H 91 L Date Exam was Performed: 08/03/19 Time Exam was Performed: 09:03 - Problem List Review Problem List Initiated/Reviewed/Updated: Yes - My Orders Last 24 Hours: My Active Orders 08/02/19 10:49 Lyle Catheter Insertion [Insert Urinary Catheter] [OM.PC] Stat 08/02/19 10:50 Urinary Catheter Assessment [RC] 0900,2100 - Plan Plan:: HPI: This 84 yo female presented to the ED via private vehicle for increased shortness of breath. Patient reports that she hadn't been feeling good for about 24 hours prior to admission. Was experiencing an increased productive cough, malaise, and shortness of breath. [facility] with short term improvement. [facility] of [facility] note a low grade temp prior to arrival. Patient had just completed IV antibiotics for a RLE cellulitis with bacteremia. Pertinent ED work-up: WBC 10.9 with 80.2% neutrophils Hgb 9.4 Creatinine 1.02 BNP 422 Troponin <0.04 BC pending CXR-mild to moderate CHF with pulmonary edema, central vascular congestion, & small left pleural effusion-mildly increased from prior study (1/20/20) Solumedrol 125 mg IV x 1 Lasix 20 mg IV x 1 Update, Late yesterday afternoon patient with significant shortness of breath and agitation with orders for Ativan and increase in morphine. Patient with agonal breathing this morning on rounds with mottling of bilateral lower extremities. family at bedside. Primary assessment/plan: --Acute respiratory failure --atrial fibrillation --Elevatated troponin, 0.08, suspect type II 2/2 increased demand, hold off on EKG due to condition --HFpEF, worsened from her baseline, comfort cares Disposition/overall plan: Patient with agonal breathing this morning with bilateral knees mottling with hypotension however appears very comfortable, family at bedside, all questions concerns were answered family is in agreement with comfort care/ED care. Expectant management.
--- NOTE | 2019-08-03 09:51 | PCM.DCSUM1 ---
Discharge Summary - Discharge Data Discharge Date: 08/03/19 Discharge Disposition: Home, Self-Care 01 Condition: Good - Referral to Home Health Primary Care Physician: Anurag Telles NP - Patient Summary/Data Consults: Consultations 08/01/19 09:35 Consult to Case Management/Fireman [CONS] Routine - Discharge Plan *PRESCRIPTION DRUG MONITORING PROGRAM REVIEWED*: No *COPY OF PRESCRIPTION DRUG MONITORING REPORT IN PATIENT JACKI: No Home Medications: Home Meds Cholecalciferol (Vitamin D3) [Vitamin D3] 1,000 unit PO DAILY@0800 09/27/13 [ History] Albuterol Sulfate [Albuterol Sulfate HFA] 2 puff INH Q4HR PRN 08/28/14 [History] Omeprazole [Prilosec] 40 mg PO BIDAC 01/20/15 [History] Docusate Sodium [Colace] 100 mg PO BID 06/27/15 [History] Albuterol [Proventil Neb Soln] 2.5 mg NEB QID PRN 02/25/16 [History] Potassium Chloride [K-Tab ER] 10 meq PO BID@0800,1800 02/25/16 [History] Dapsone 100 mg PO DAILY 06/19/16 [History] Metoprolol Tartrate 12.5 mg PO BID@0800,1800 11/08/16 [History] Roflumilast [Daliresp] 500 mcg PO DAILY #30 tablet 01/20/17 [Rx] Polyethylene Glycol 3350 [MiraLAX] 17 gm PO DAILY@08 05/21/17 [History] Furosemide [Lasix] 20 mg PO DAILY 12/09/17 [History] atorvaSTATin [Lipitor] 40 mg PO BEDTIME 02/24/18 [History] Hydrocodone/Acetaminophen [Hydrocodon-Acetaminophen 5-325] 1 tab PO TID PRN 04/15 [History] allopurinoL [Zyloprim] 200 mg PO DAILY 05/08/18 [History] Baclofen 2.5 mg PO TID PRN 07/11/18 [History] Levothyroxine [Synthroid] 100 mcg PO ACBREAKFAST 09/22/18 [History] Furosemide 20 mg PO MOWEFR@1200 06/12/19 [History] Menthol [Biofreeze] 1 applic TOP BID PRN 06/12/19 [History] Ondansetron [Zofran ODT] 4 mg PO Q4HR PRN 06/12/19 [History] predniSONE [Prednisone] 10 mg PO DAILY 06/12/19 [History] Acetaminophen [Tylenol] 650 mg PO Q4H PRN 07/12/19 [History] Albuterol/Ipratropium [DuoNeb 3.0-0.5 MG/3 ML] 3 ml IH Q6H 08/01/19 [History] Budesonide [Pulmicort] 0.5 mg IH BID 08/01/19 [History] Venlafaxine HCl [Venlafaxine ER] 150 mg PO DAILY 08/01/19 [History] - Discharge Summary/Plan Comment DC Time >30 min.: No Discharge Summary/Plan Comment: Final diagnosis Acute cardiopulmonary failure with arrest History summary Jossie was a wonderful 84-year-old female who was afflicted with many multiple physical ailments and suffered mightily requiring multiple frequent hospital re- admissions was sent to our ED via private vehicle for increased shortness of breath. Patient reported she had not been feeling good for about 24 hours prior to this last admission. She had reported that she had increased productive cough, malaise, and shortness of breath in which her extra albuterol nebulizer at the care home was not helping her very much. Pertinent ED work-up: WBC 10.9 with 80.2% neutrophils Hgb 9.4 Creatinine 1.02 BNP 422 Troponin <0.04 BC pending CXR-mild to moderate CHF with pulmonary edema, central vascular congestion, & small left pleural effusion-mildly increased from prior study (07/18/19) Solumedrol 125 mg IV x 1 Lasix 20 mg IV x 1 Hospital course Soon after admission and overnight the on-call provider was notified of the patient's all clinical deterioration regarding her breathing status, orders were given for bladder scan diuretics as she did have minimal output with increased oxygen needs. 6 was given to help with pulmonary liquefication, ABG was assessed and showed noncompensatory respiratory acidosis. morphine was given to assist with preload/afterload reduction along with Ativan due to restlessness and shortness of breath. BiPAP was entertained however with consultation with the family and likely not a good candidate due to failure to maintain her own respiratory drive. She did develop a fever likely due to stress response. He was given oxygen for support and Lyle catheter for dignity purposes. Shortly after rounds the patient took her last breath on this earth--witnessed by her extensive and loving, supportive family. - General Info Date of Service: 08/03/19 Subjective Update: non responsive. - Patient Data Vitals - Most Recent: Last Vital Signs Temp 96.9 F 08/03/19 06:12 Pulse 93 08/03/19 06:12 Resp 32 H 08/03/19 06:12 BP 92/54 L 08/03/19 06:12 Pulse Ox 96 08/03/19 09:00 Weight - Most Recent: 101 lb 3 oz I&O - Last 24 hours: Intake & Output 08/02/19 08/03/19 08/03/19 22:59 06:59 14:59 Intake Total 0 Output Total 200 175 Balance -200 -175 TRENT Results - Last 24 hrs: Microbiology 07/31/19 21:15 Aerobic Blood Culture - Preliminary Blood NO GROWTH AFTER 2 DAYS Anaerobic Blood Culture - Preliminary NO GROWTH AFTER 2 DAYS Med Orders - Current: Current Medications Acetaminophen (Tylenol) 650 mg PO Q4H PRN PRN Reason: Pain Acetaminophen (Tylenol) 650 mg RECTAL Q4H PRN PRN Reason: Fever Last Admin: 08/03/19 00:07 Dose: 650 mg Hydrocodone Bitart/Acetaminophen ([place] 325-5 Mg) 1 tab PO TID PRN PRN Reason: Pain Last Admin: 08/02/19 01:40 Dose: 1 tab Albuterol (Proventil Neb Soln) 2.5 mg NEB Q4HRRT PRN PRN Reason: shortness of breath Last Admin: 08/02/19 06:54 Dose: 2.5 mg Albuterol/Ipratropium (Duoneb 3.0-0.5 Mg/3 Ml) 3 ml NEB Q6HRRT MARY ALICE Last Admin: 08/03/19 05:48 Dose: 3 ml Allopurinol (Zyloprim) 200 mg PO DAILY MARY ALICE Last Admin: 08/02/19 10:00 Dose: Not Given Arformoterol Tartrate (Brovana) 15 mcg INH BID MARY ALICE Last Admin: 08/02/19 21:23 Dose: 15 mcg Atorvastatin Calcium (Lipitor) 40 mg PO BEDTIME MARY ALICE Last Admin: 08/02/19 21:06 Dose: Not Given Baclofen (Lioresal) 2.5 mg PO TID PRN PRN Reason: back spasm Cholecalciferol (Vitamin D3) 25 mcg PO DAILY@0800 [facility] Last Admin: 08/03/19 08:00 Dose: Not Given Docusate Sodium (Colace) 100 mg PO BID [facility] Last Admin: 08/02/19 21:06 Dose: Not Given Furosemide (Lasix) 20 mg PO DAILY [facility] Last Admin: 08/02/19 10:00 Dose: Not Given Furosemide (Lasix) 20 mg PO MOWEFR@1200 [facility] Last Admin: 08/01/19 12:37 Dose: 20 mg Guaifenesin/Phenylephrine HCl (Robitussin Dm) 10 ml PO Q4H PRN PRN Reason: Cough Last Admin: 08/02/19 02:56 Dose: 10 ml Levothyroxine Sodium (Synthroid) 100 mcg PO ACBREAKFAST [facility] Last Admin: 08/03/19 07:59 Dose: Not Given Lorazepam (Ativan) 0.5 mg IVPUSH Q4H PRN PRN Reason: anxiety Last Admin: 08/03/19 02:47 Dose: 0.5 mg Metoprolol Tartrate (Lopressor) 12.5 mg PO BID@0800,1800 [facility] Last Admin: 08/03/19 07:59 Dose: Not Given Morphine Sulfate (Morphine) 1 mg IVPUSH Q2H [facility] Last Admin: 08/03/19 07:51 Dose: 1 mg Omeprazole (Omeprazole) 40 mg PO BIDAC [facility] Last Admin: 08/03/19 07:59 Dose: Not Given Ondansetron HCl (Zofran Odt) 4 mg PO Q4HR PRN PRN Reason: Nausea Dapsone 100mg Tablet (- Ptom) 1 each PO DAILY [facility] Last Admin: 08/02/19 10:00 Dose: Not Given Polyethylene Glycol (Miralax) 17 gm PO DAILY@08 [facility] Last Admin: 08/03/19 07:59 Dose: Not Given Potassium Chloride (Klor-Con 10) 10 meq PO BID@0800,1800 [facility] Last Admin: 08/03/19 07:59 Dose: Not Given Roflumilast (Daliresp) 500 mcg PO DAILY [facility] Last Admin: 08/02/19 10:00 Dose: Not Given Sodium Chloride (Saline Flush) 10 ml FLUSH Q8HR [facility] Last Admin: 08/03/19 07:50 Dose: 10 ml Venlafaxine HCl (Effexor Xr) 150 mg PO DAILY [facility] Last Admin: 08/02/19 10:00 Dose: Not Given Discontinued Medications Albuterol (Proventil Neb Soln) 2.5 mg NEB ONETIME ONE Stop: 08/01/19 05:35 Last Admin: 08/01/19 05:40 Dose: 2.5 mg Albuterol (Ventolin Hfa) gm INH Q4HR PRN PRN Reason: Shortness of Breath Dapsone (Dapsone) 100 mg PO DAILY [facility] Last Admin: 08/01/19 10:13 Dose: Not Given Furosemide (Lasix) 20 mg IVPUSH NOW ONE Stop: 07/31/19 22:30 Last Admin: 07/31/19 22:38 Dose: 20 mg Furosemide (Lasix) 40 mg IVPUSH NOW ONE Stop: 08/02/19 05:20 Last Admin: 08/02/19 05:26 Dose: 40 mg Furosemide (Lasix) 20 mg IVPUSH NOW ONE Stop: 08/02/19 07:57 Last Admin: 08/02/19 08:38 Dose: 20 mg Heparin Sodium (Porcine) (Heparin Lock Flush 100 Units/Ml) Confirm Administered Dose 1,000 units .ROUTE .STK-MED ONE Stop: 07/31/19 22:33 Last Admin: 07/31/19 22:40 Dose: 1,000 units Heparin Sodium (Porcine) (Heparin Lock Flush 100 Units/Ml) 1,000 units IVPUSH ONETIME ONE Stop: 07/31/19 22:33 Last Admin: 07/31/19 22:32 Dose: Not Given Lorazepam (Ativan) 0.5 mg IVPUSH ONETIME ONE Stop: 08/02/19 05:23 Last Admin: 08/02/19 05:47 Dose: Not Given Lorazepam (Ativan) 0.5 mg IVPUSH ONETIME ONE Stop: 08/02/19 07:58 Last Admin: 08/02/19 09:58 Dose: Not Given Menthol (Menthol) 0 gm TOP BID PRN PRN Reason: Pain Methylprednisolone Sodium Succinate (Solu-Medrol) 125 mg IVPUSH ONETIME ONE Stop: 07/31/19 21:22 Last Admin: 07/31/19 22:00 Dose: 125 mg Methylprednisolone Sodium Succinate (Solu-Medrol) 80 mg IVPUSH ONETIME ONE Stop: 08/01/19 09:34 Last Admin: 08/01/19 10:00 Dose: 80 mg Morphine Sulfate (Morphine) 1 mg IVPUSH Q3H PRN PRN Reason: Shortness of Breath Last Admin: 08/02/19 17:09 Dose: 1 mg - Exam Quality Assessment: Denies: Supplemental Oxygen
[2019-08-03] MEDS: Furosemide 20 MG Tab PO SCH (10:33)
[2019-08-03] MEDS: Allopurinol 100 MG Tab PO SCH (10:33)
[2019-08-03] MEDS: Roflumilast 500 MCG Tab PO SCH (10:33)
[2019-08-03] MEDS: Venlafaxine 150 MG Cap.ER PO SCH (10:33)
[2019-08-03] MEDS: Arformoterol 15 MCG/2 ML Neb Soln INH SCH (10:33)
[2019-08-03] MEDS: Docusate Sodium 100 MG Cap PO SCH (10:33)
== END 2019-08-03 09:15 | disposition expired | DRG 190 ==
LOC: KA.ED 21:11 → KA.MS 22:46 → KA.ED 22:55 → KA.MS 23:00 → UNDOADMIN 23:00
PROVIDERS: ADMIT Nurse Practitioner Family; ATTEND Nurse Practitioner Family
DX: J44.1 Chronic obstructive pulmonary disease with (acute) exacerbation (principal); J96.21 Acute and chronic respiratory failure with hypoxia; I50.9 Heart failure, unspecified; N18.9 Chronic kidney disease, unspecified; E87.2 Acidosis; I50.30 Unspecified diastolic (congestive) heart failure; M31.30 Wegener's granulomatosis without renal involvement; I13.0 Hypertensive heart and chronic kidney disease with heart failure and stage 1 through stage 4 chronic kidney disease, or unspecified chronic kidney disease; I35.0 Nonrheumatic aortic (valve) stenosis; I05.0 Rheumatic mitral stenosis; M48.55XA Collapsed vertebra, not elsewhere classified, thoracolumbar region, initial encounter for fracture; Z66 Do not resuscitate; Z51.5 Encounter for palliative care; I48.91 Unspecified atrial fibrillation; I73.9 Peripheral vascular disease, unspecified; I34.2 Nonrheumatic mitral (valve) stenosis; E03.9 Hypothyroidism, unspecified; E78.5 Hyperlipidemia, unspecified; M1A.09X0 Idiopathic chronic gout, multiple sites, without tophus (tophi); Z90.49 Acquired absence of other specified parts of digestive tract; F32.9 Major depressive disorder, single episode, unspecified; D50.0 Iron deficiency anemia secondary to blood loss (chronic); N18.3 Chronic kidney disease, stage 3 (moderate); M81.0 Age-related osteoporosis without current pathological fracture; M47.814 Spondylosis without myelopathy or radiculopathy, thoracic region; K21.9 Gastro-esophageal reflux disease without esophagitis; R45.1 Restlessness and agitation; I95.9 Hypotension, unspecified; E78.00 Pure hypercholesterolemia, unspecified; I46.9 Cardiac arrest, cause unspecified; F43.9 Reaction to severe stress, unspecified; K59.03 Drug induced constipation; T40.2X5A Adverse effect of other opioids, initial encounter; H54.7 Unspecified visual loss; H91.90 Unspecified hearing loss, unspecified ear; I65.23 Occlusion and stenosis of bilateral carotid arteries; M19.90 Unspecified osteoarthritis, unspecified site; R79.89 Other specified abnormal findings of blood chemistry; D75.89 Other specified diseases of blood and blood-forming organs; I77.6 Arteritis, unspecified; R50.9 Fever, unspecified; Z88.0 Allergy status to penicillin; Z93.3 Colostomy status; Z79.52 Long term (current) use of systemic steroids; Z88.1 Allergy status to other antibiotic agents; Z88.6 Allergy status to analgesic agent; Z88.8 Allergy status to other drugs, medicaments and biological substances; Z79.890 Hormone replacement therapy; Z79.899 Other long term (current) drug therapy; I25.2 Old myocardial infarction; Z79.01 Long term (current) use of anticoagulants; Z95.2 Presence of prosthetic heart valve; Z98.49 Cataract extraction status, unspecified eye; Z90.10 Acquired absence of unspecified breast and nipple; Z99.81 Dependence on supplemental oxygen; Z79.51 Long term (current) use of inhaled steroids; Z85.3 Personal history of malignant neoplasm of breast; Z85.038 Personal history of other malignant neoplasm of large intestine; Z91.041 Radiographic dye allergy status; Z95.9 Presence of cardiac and vascular implant and graft, unspecified
CPT/HCPCS: 36415; 71045; 80053; 82550; 82553; 83880; 84484; 85025; 87040; 93005; 99284; J1642; J1940; J2930; 36600; 51702; 80048; 80069; 82803; 87804; 94640; 96374; 96375; 99285-25; A9270-GY; J2060; J2270; J7613-GY; J7620-GY